=== PATIENT | male | born 1965 | race Caucasian/White ===

== ENCOUNTER 2017-12-07 09:21 | Inpatient (IN) | payer MEDICAID, SELFPAY ==
[2017-12-07] VITALS (18 sets, daily range): BP systolic 135–173; BP diastolic 74–92; PULSE 87–124; RESP 14–33; TEMP 36.9–39.2; O2SAT 90–96; BMI 33.1; BMI 32.7
--- NOTE | 2017-12-07 09:44 | EKG12_ITS ---
Test Reason : CP Blood Pressure : / mmHG Vent. Rate : 115 BPM Atrial Rate : 115 BPM P-R Int : 178 ms QRS Dur : 090 ms QT Int : 308 ms P-R-T Axes : 044 014 026 degrees QTc Int : 426 ms Sinus tachycardia Otherwise normal ECG Confirmed by DARRYL DOMINGUEZ, JEFFREY ([id number]), book or script editor MARGUERITE STEPHENSON ([id number]) on 12/09/2017 1:39:56 PM Referred By: YVROSE/GUMARO Confirmed By:JEFFREY ANDREWS MD
--- NOTE | 2017-12-07 09:44 | RAD_ITS ---
STUDY: X-RAY CHEST REASON FOR EXAM: Male, 52 years old. Right-sided chest pain. TECHNIQUE: Single AP portable view of the chest. COMPARISON: None. FINDINGS: EKG electrodes are seen. There is opacification of the right hemithorax. This may represent a combination of consolidation or mass lesion with a right pleural effusion. The left lung is clear. A CT scan is recommended for further evaluation. Normal size heart. Normal mediastinum and mateo. Normal visualized pulmonary arteries. Normal visualized aortic arch and descending thoracic aorta. Normal visualized thoracic spine. Normal visualized ribs, clavicles, and shoulders. There is no demonstrated abnormality of the visualized soft tissue structures of the upper abdomen. RAD/Chest 1 View (Portable) IMPRESSION: Opacification of the right hemithorax. This is suggestive of a combination of pleural effusion and underlying consolidation and/or mass lesion. Correlation with a CT scan is recommended. Electronically Signed: Akbar Powers MD at 10:12 EDT Tel [phone], Service support ,
--- NOTE | 2017-12-07 09:48 | ED.DCSUM_ITS ---
- ER Visit Summary Date of Service: 12/07/17 Chief Complaint: Chest pain History of Present Illness: The patient is a [address] Chavez. He reports that he has right lower chest pain that began 1 week ago. Sick continuous pain that waxes and wanes. He describes it as sharp and burning. It is 2 out of 10 at rest. Is 9 out of 10 with movement of his torso, breathing , or coughing. He is taking ibuprofen Tylenol with minimal relief. She has been nausea with it and vomited twice. No blood in his emesis. Is also made of short of breath and diaphoretic. He states pain radiates to his right shoulder and into his back. No ankle swelling. He reports he has had bilateral calf pain for 1-2 months. No personal history of DVT. He does not know his family history as he is adopted. No recent travel. He denies any recent trauma. No fall, MVA, or change in activity. Physical Examination: Vitals: 98.4, 140/74, 124, 18, 94% on room air which is not hypoxic. General: Well-nourished and well-developed. Head: Normocephalic atraumatic. Neck: Supple, no lymphadenopathy. No JVD. Nontender. Cardiovascular: Tachycardic regular rhythm. No murmurs. Respiratory: No respiratory distress. Decreased breath sounds on right. Left lung is clear. Abdominal: Soft, nontender, nondistended, normal bowel sounds. No guarding, rebound, or peritoneal signs. Back: Nontender. Extremities: Nontender, no edema. Skin: Normal color, no rash. Neurologic: Alert and oriented ?3. Cranial nerves II through XII are intact. Normal strength and sensation. Psych: Normal affect. Test Results: EKG is sinus tach at [address] changes. CBC is marked for a white count of 16.6 with 74 segmented neutrophils, 13 monocytes, and 11 lymphocytes. Chem-7 is more for glucose 174. TSH is normal. Troponins negative. D-dimer is elevated. Chest x-ray shows opacification of the right hemithorax and recommend CT. CTA of the chest shows multiple PEs bilaterally. There is also 12.2 x 8.4 x 12.4 cm mass that is in homogenous and solid/cystic in the right upper lobe. It abuts the lateral aspect of the thorax. The surrounding compressive atelectasis right upper lobe and minimal in the right lower lobe. There is a minimal right pleural effusion. Emergency Department Course and Treatment: Patient had an IV placed. He was given a liter of normal saline. He was given aspirin p.o. Treatment Plan: Patient was discussed with Dr. Buenrostro, Dr. Bob Shah, Dr. Chris, and Dr. Delgado. He will have a CT-guided biopsy of the mass in 1 hour. Following this a heparin drip will be started. Disposition: Admitted in serious condition. Impression: 1. Bilateral PE. 2. Right upper lobe mass. This note was generated with [employer] dictation software. It may contain incorrect words, spelling, and punctuation that were not noted in review of the chart prior to signing ED Disposition - Plan for ED Patient: Chief Complaint: Chest Pain Referrals: Carolyne Chavez MD [Primary Care Provider] -
[2017-12-07] MEDS: 0.9% Normal Saline 1,000 ML 1000 ML IV (09:59)
[2017-12-07] MEDS: Aspirin 81 MG TAB.CHEW 324 MG PO (09:59)
[2017-12-07 10:03] LABS: D-Dimer Quantitative (DVT/PE) 3.68 FEU/ug/m (0.27-0.49)
--- NOTE | 2017-12-07 10:08 | CT_ITS ---
STUDY: CTA CHEST REASON FOR EXAM: Male, 52 years old. Right-sided rib pain and chest pain. Elevated d-dimer. RADIATION DOSAGE (If Supplied By Facility): CTDIvol = ( 17.95 ) mGy, DLP = ( 739.21 ) mGycm TECHNIQUE: The examination was performed with the intravenous administration of 100ml ml of Isovue 370 contrast material. Post-processing of the angiographic images was performed, with multiplanar reformation and 3D reconstruction. Individualized dose optimization techniques were used for this CT. COMPARISON: Comparison is made with prior chest radiograph done earlier in the day. FINDINGS: There are multiple small intraluminal filling defects in branches of both right and left pulmonary arteries in keeping with bilateral pulmonary embolism. Normal thoracic aorta and visualized great vessels. There is no demonstrated aortic dissection. Normal heart and pericardium. Normal mediastinum. Normal hilar regions. Normal visualized trachea and bronchi. There is a 12.2 cm x 8.9 cm x 12.4 cm inhomogeneous solid and cystic mass in the right upper lobe. There is evidence of a surrounding compressive atelectasis in the right upper lobe. There is also evidence of a increased markings with areas of confluence in the right lower lobe suggestive of atelectasis with minimal right pole effusion. The mass abuts the lateral aspect of the thorax. Normal pleura. Normal chest wall structures. Normal osseous structures. Normal visualized upper abdomen. CT/CTA Chest W/WO Contrast IMPRESSION: Large mass in the right hemithorax as described with right basilar atelectasis and small pleural effusion. Multiple tiny bilateral pulmonary emboli. Electronically Signed: Akbar Powers MD at 11:00 EDT Tel [phone], Service support ,
[2017-12-07 10:10] LABS: Anion Gap 9 (5-15); BUN 7 mg/dL (7-18); BUN/Creat Ratio 6.1 RATIO (10-20); Calcium,Total 9.4 mg/dL (8.5-10.1); Chloride 101 mmol/L (98-107); Creatinine, Serum 1.15 mg/dL (0.70-1.30); EST Glomerular Filtration Rate 71 mL/min (>60); Est Glom Filt Rate - Afr Amer 86 mL/min (>60); Estimated Creatinine Clearance 77.58 ml/min; Glucose 174 mg/dL (74-106); Potassium 4.3 mmol/L (3.5-5.1); Sodium Level 137 mmol/L (136-145); Thyroid Stim Hormone (TSH) 1.84 uIU/mL (0.358-3.74)
[2017-12-07 10:19] LABS: Absolute Lymphocyte Count 1.87 X10^3/ul (0.83-4.51); Absolute Neutrophil Count 12.2 X10^3/uL (2.0-7.7); Basophil% 0.6 % (0-1); Differential Indicated SCAN CRITERIA MET; Eosinophil# 0.24 X10^3/uL; Eosinophils% 1.5 % (0-5); Hematocrit 41.1 % (40-54); Hemoglobin 13.8 g/dl (13.0-16.5); Lymphocyte # 1.87 X10^3/ul (4.0); Lymphocyte % 11.3 % (19-41); Mean Corp Hgb Conc 33.6 g/gl (32-36); Mean Corpuscular Hgb 35.6 pg (27.0-32.0); Mean Corpuscular Volume 105.9 fL (80-94); Mean Platelet Vol. 9.8 fl (6.2-12.0); Monocyte# 2.07 X10^3/uL; Monocyte% 12.5 % (0-10); Neutrophil # 12.17 X10^3/uL (2.7-7.7); Neutrophil % 73.5 % (47-70); POSITIVE COUNT NO; POSITIVE DIFFERENTIAL YES; POSITIVE MORPHOLOGY NO; Platelet Count 376 K/mm3 (150-450); RBC Distribution Width CV 13.3 % (11.6-14.6); RBC Distribution Width SD 51.2 fl (35.1-43.9); Red Blood Count 3.88 M/mm3 (4.6-6.2); White Blood Count 16.6 K/mm3 (4.4-11.0)
--- NOTE | 2017-12-07 11:39 | CT_ITS ---
PROCEDURE: CT DIRECTED ABSCESS DRAINAGE, right upper lobe. DATE OF EXAMINATION: December 07, 2017. INDICATION: Male, 52 years old. Large right upper lobe abscess. PHYSICIAN: Akbar Powers M.D. CONSENT: Written informed consent was obtained having explained the risks, benefits and alternatives in detail with the patient who accepted the risks and agreed to proceed. Laboratory review and clinical assessment was performed. CONSCIOUS SEDATION PROTOCOL: The Drugs used were: 2 mg Versed, IV., and 50 mcg Fentanyl, IV. The sedation time was: 16 minutes. Conscious sedation was started at 1342 and terminated at 1358. The conscious sedation protocol was independently monitored. RADIATION DOSAGE (If Supplied By Facility): CTDIvol = ( 20.72 ) mGy, DLP = ( 1235.2 ) mGycm TECHNIQUE: CT sections were made through the chest revealing an abscess in the right upper lobe. The skin surface was prepped and draped in a sterile fashion. An 8.5 Thai Drainage catheter was inserted into the collection and formed into position. Additional fluid was aspirated for a total of approximately 400 cc of cloudy yellow fluid. The fluid was sent to the microbiology lab as per physician orders. The catheter was sutured into position to allow for continued drainage. Followup CT sections reveals good position of the catheter. CT/Biopsy/Inj or Needle Placement IMPRESSION: 1. CT directed drainage of a fluid collection using CT image guidance and image documentation as described. 2. Conscious Sedation protocol utilized with independent monitoring Electronically Signed: Akbar Powers MD at 14:46 EDT Tel [phone], Service support ,
--- NOTE | 2017-12-07 11:56 | NURSING ---
PCU PULMONARY EMBOLI, RT LUNG MASS, NEW DIAGNOSIS SEMENTI
--- NOTE | 2017-12-07 11:58 | NURSING ---
Geremias notified patient may transfer to PCU.
[2017-12-07 12:53] LABS: International Normalized Ratio 1.1
[2017-12-07 12:54] LABS: Partial Thromboplast Time 34.3 Seconds (24.1-36.2)
[2017-12-07 13:06] LABS: AST(SGOT) 180 U/L (15-37); Alanine Aminotransfer ALT/SGPT 154 U/L (16-61); Albumin, Serum 2.6 g/dL (3.2-5.0); Alkaline Phosphatase 238 U/L (45-117); Bilirubin, Direct 0.85 mg/dL (0.00-0.30); Globulin 4.4 g/dL (2.2-4.2)
--- NOTE | 2017-12-07 13:24 | PCM.CONS.GEN ---
Reason for Consult Date of Consultation: 12/07/17 Reason for Consultation: Pulmonary embolism/lung mass History of Present Illness: The patient is a 52-year-old male, with a history as outlined below, who presented to the emergency department on December 07 with pleuritic type chest pain and shortness of breath. The patient reports the presence of fevers, poor appetite, chest pain and shortness of breath of 7-10 days duration. He denies the presence of a productive cough. In fact, he reports that with coughing his pain is exacerbated. The patient is a lifelong non-smoker. He does endorse the presence of a sedentary lifestyle, as he is currently on disability due to underlying mental health issues. He denies any recent travel. He denies a personal or family history of venous thromboembolic disease. The patient does have an alcohol abuse history with concerns for recurrent aspiration events. On presentation to the emergency department, the patient was noted to be afebrile, tachycardic and hemodynamically stable. He was maintaining appropriate oxygen saturations on room air. Laboratory evaluation revealed elevated white blood cell count to 16,000. D-dimer was elevated to 3.68. Chemistry profile was within normal limits. There was evidence of transaminitis and hyperbilirubinemia. Subsequent CTA chest revealed evidence of bilateral pulmonary emboli, along with a large right upper lobe lung mass measuring 12 x 12 cm. The patient was given supplemental IV fluid hydration and referred to radiology to undergo immediate CT-guided lung biopsy. There are plans for heparin to be initiated following the completion of the biopsy. The patient's CT-guided lung biopsy revealed evidence of purulent fluid, concerning for the presence of a pulmonary abscess. Past Medical History Allergies No Known Allergies Allergy (Verified 01/05/17 23:07) Home Medications: Ambulatory Orders Medication Instructions Recorded Omeprazole [Prilosec] 20 mg PO DAILY 05/04/15 Benztropine Mesylate 0.5 mg PO BID 12/07/17 [place] Carbonate 1,200 mg PO QHS 12/07/17 Propranolol HCl [Inderal (Beta 20 mg PO BID 12/07/17 [place])] Quetiapine Fumarate [Seroquel] 200 mg PO QHS 12/07/17 Trazodone HCl 300 mg PO QHS 12/07/17 Venlafaxine XR [Effexor Xr] 150 mg PO DAILY 07/18/18 Smoking Status: Never smoker - *Family History Paternal History Items: - - Biological father at the age of 51 with cancer however the patient does not know the primary Maternal History Items: Cancer Review of Systems Constitutional: Reports: Fever, Malaise, Fatigue Eyes: Denies: Blurred vision, Double vision HEENT: Denies: Dysphasia, Head Aches, Sinus Congestion, Sinus Drainage Cardiovascular: Reports: Chest Pain Respiratory: Reports: Pleuritic Pain, Shortness of Breath. Denies: Sputum production Gastrointestinal: Denies: Abdominal Pain, Nausea, Vomiting Genitourinary: Denies: Dysuria Musculoskeletal: Denies: Joint Pain, Joint Tenderness Skin: Denies: Rash, Wounds Neurological: Denies: Numbness, Tingling, Focal weakness Psychiatric: Denies: Anxiety, Depression, Homicidal Ideations, Suicidal Ideations Hematologic/ Lymphatic: Denies: Hx of blood clot Patient Problems: Active and Suspected Problems Lung abscess (Acute) Objective: The patient's most recent lab work, culture data and imaging studies have all been personally reviewed. Blood and pulmonary fluid cultures are pending. - Physical Exam General: Alert, Oriented x3, Cooperative, No apparent distress HEENT: Atraumatic, PERRLA, Normocephalic Oral: No Gingival or Mucosal Lesions/ Ulcerations Neck: Supple, No Nodes, Trachea Midline Lungs: Diminished - R>L, - - Small bore thoracic drain in place Cardiovascular: Normal S1, Normal S2, No murmurs, Tachycardic Abdomen: Bowel Sounds Present, Soft, Non Tender, Obese Extremities: No clubbing, No cyanosis, No edema, Capillary Refill Less than 3 Seconds Skin: No breakdown Musculoskeletal: No Tenderness to Palpation of Joints or Extremities, No Muscle Wasting Lymphatic: No Cervical, Supraclavicular, or Inguinal Adenopathy Neurological: Neuro grossly intact Psych/Mental Status: Alert and oriented to time, place, person, mood and affect Vital Signs Temp Pulse Resp BP Pulse Ox 100.2 F H 107 H 20 H 150/86 H 94 12/07/17 12:45 12/07/17 13:03 12/07/17 12:45 12/07/17 12:45 12/07/17 12:45 Oxygen Delivery Method Room Air Weight: 228 lb Body Mass Index (BMI) 32.7 Labs (Last 48 Hours) 0712/07/17 12/07/17 09:30 09:30 09:30 WBC 16.6 H RBC 3.88 L Hgb 13.8 Hct 41.1 MCV 105.9 H MCH 35.6 H MCHC 33.6 RDW 13.3 RDW Differential 51.2 H Plt Count 376 MPV 9.8 Immature Gran % (Auto) 0.600 Neut % (Auto) 73.5 H Lymph % (Auto) 11.3 L [place] % (Auto) 12.5 H Eos % (Auto) 1.5 Baso % (Auto) 0.6 Absolute Neuts (auto) 12.2 H Absolute Lymphs (auto) 1.87 Total Counted Not Reportable Differential Comment COMMENT Diff Path Review May foll PT INR APTT D-Dimer Quant (PE/DVT) 3.68 H* Sodium 137 Potassium 4.3 Chloride 101 Carbon Dioxide 27.0 Anion Gap 9 BUN 7 Creatinine 1.15 Estim Creat Clear Calc 77.58 Est GFR (MDRD) Af Amer 86 Est GFR (MDRD) Non-Af 71 BUN/Creatinine Ratio 6.1 L Glucose 174 H Calcium 9.4 Total Bilirubin Direct Bilirubin AST ALT Alkaline Phosphatase Troponin I < 0.015 Total Protein Albumin Globulin TSH 1.84 [place] 12/07/17 12/07/17 12/07/17 09:30 09:30 09:30 WBC RBC Hgb Hct MCV MCH MCHC RDW RDW Differential Plt Count MPV Immature Gran % (Auto) Neut % (Auto) Lymph % (Auto) [place] % (Auto) Eos % (Auto) Baso % (Auto) Absolute Neuts (auto) Absolute Lymphs (auto) Total Counted Differential Comment Diff Path Review PT 14.0 INR 1.1 APTT 34.3 D-Dimer Quant (PE/DVT) Sodium Potassium Chloride Carbon Dioxide Anion Gap BUN Creatinine Estim Creat Clear Calc Est GFR (MDRD) Af Amer Est GFR (MDRD) Non-Af BUN/Creatinine Ratio Glucose Calcium Total Bilirubin 1.30 H Direct Bilirubin 0.85 H AST 180 H ALT 154 H Alkaline Phosphatase 238 H Troponin I Total Protein 7.0 Albumin 2.6 L Globulin 4.4 H TSH [place] 1.20 12/07/17 09:30 WBC RBC Hgb Hct MCV MCH MCHC RDW RDW Differential Plt Count MPV Immature Gran % (Auto) Neut % (Auto) Lymph % (Auto) [place] % (Auto) Eos % (Auto) Baso % (Auto) Absolute Neuts (auto) Absolute Lymphs (auto) Total Counted Differential Comment Diff Path Review PT INR APTT D-Dimer Quant (PE/DVT) Sodium Potassium Chloride Carbon Dioxide Anion Gap BUN Creatinine Estim Creat Clear Calc Est GFR (MDRD) Af Amer Est GFR (MDRD) Non-Af BUN/Creatinine Ratio Glucose Calcium Total Bilirubin Direct Bilirubin AST ALT Alkaline Phosphatase Troponin I Total Protein Albumin Globulin TSH Pending [place] Clinical Impression(s) from Imaging Studies Chest X-Ray 12/07/17 09:44 IMPRESSION: Opacification of the right hemithorax. This is suggestive of a combination of pleural effusion and underlying consolidation and/or mass lesion. Correlation with a CT scan is recommended. Electronically Signed: Akbar Powers MD at 10:12 EDT Tel [phone], Service support , Chest CTA 12/07/17 10:08 IMPRESSION: Large mass in the right hemithorax as described with right basilar atelectasis and small pleural effusion. Multiple tiny bilateral pulmonary emboli. Electronically Signed: Akbar Powers MD at 11:00 EDT Tel [phone], Service support , Assessment/Plan All Active Problems Lung abscess (Acute) RECOMMENDATIONS: 1. Send abscess drainage for cell count, along with aerobic/anaerobic bacterial cultures. 2. Start empiric broad-spectrum antibiotics. 3. Administer 2 L supplemental IV fluid bolus 4. Check serum lactate level. 5. Obtain and send blood cultures ?2. 6. Start heparin drip 7. Obtain repeat plain film chest x-ray in the morning. 8. Check hepatitis panel and liver ultrasound. IMPRESSIONS: 1. Sepsis secondary to presumptive pulmonary abscess The patient's chest imaging did demonstrate a large homogenous right upper lobe lung mass, initially concerning for potential malignancy. However, upon CT-guided lung biopsy, the patient was found to have purulent fluid, concerning for pulmonary abscess. A large amount of fluid was drained and sent for cultures. A small bore thoracic drain remains in place. Broad-spectrum antibiotics will be initiated, pending infectious workup. The patient may require the assistance of infectious diseases to assist with antibiotic management. Additional supplemental IV fluids will be administered and serum lactate level will be checked. The patient does endorse a history of recurrent reflux and emesis, with concern for aspiration. 2. Bilateral pulmonary embolism The patient endorses an exceedingly sedentary lifestyle. This may have been the precipitating etiology for his PEs. Regardless, the patient will be placed on a heparin drip, with plans to transition to a oral anticoagulant regimen, once medically stable. 3. Elevated transaminases/hyperbilirubinemia The patient does have an alcohol abuse history. Therefore, we will plan to check hepatitis panel and liver ultrasound. 4. Personal history of gastroesophageal reflux disease/bipolar disorder/alcohol dependence Complicates care, management, recovery and prognosis. Continue PPI therapy. This note was generated with [employer] dictation software. It may contain incorrect words, spelling, and punctuation that were not noted in checking the note before signing. Code Visit Inpatient E&M: 08289 Init Hosp L3
--- NOTE | 2017-12-07 13:29 | CON.PCM_ITS ---
Reason for Consult Date of Consultation: 12/07/17 Reason for Consultation: Pulmonary embolism/lung mass History of Present Illness: The patient is a 52-year-old male, with a history as outlined below, who presented to the emergency department on December 07 with pleuritic type chest pain and shortness of breath. The patient reports the presence of fevers, poor appetite, chest pain and shortness of breath of 7-10 days duration. He denies the presence of a productive cough. In fact, he reports that with coughing his pain is exacerbated. The patient is a lifelong non-smoker. He does endorse the presence of a sedentary lifestyle, as he is currently on disability due to underlying mental health issues. He denies any recent travel. He denies a personal or family history of venous thromboembolic disease. The patient does have an alcohol abuse history with concerns for recurrent aspiration events. On presentation to the emergency department, the patient was noted to be afebrile, tachycardic and hemodynamically stable. He was maintaining appropriate oxygen saturations on room air. Laboratory evaluation revealed elevated white blood cell count to 16,000. D-dimer was elevated to 3.68. Chemistry profile was within normal limits. There was evidence of transaminitis and hyperbilirubinemia. Subsequent CTA chest revealed evidence of bilateral pulmonary emboli, along with a large right upper lobe lung mass measuring 12 x 12 cm. The patient was given supplemental IV fluid hydration and referred to radiology to undergo immediate CT-guided lung biopsy. There are plans for heparin to be initiated following the completion of the biopsy. The patient's CT-guided lung biopsy revealed evidence of purulent fluid, concerning for the presence of a pulmonary abscess. Past Medical History Allergies No Known Allergies Allergy (Verified 01/05/17 23:07) Home Medications: Ambulatory Orders Medication Instructions Recorded Omeprazole [Prilosec] 20 mg PO DAILY 05/04/15 Benztropine Mesylate 0.5 mg PO BID 12/07/17 [place] Carbonate 1,200 mg PO QHS 12/07/17 Propranolol HCl [Inderal (Beta 20 mg PO BID 12/07/17 Bijan)] Quetiapine Fumarate [Seroquel] 200 mg PO QHS 12/07/17 Trazodone HCl 300 mg PO QHS 12/07/17 Venlafaxine XR [Effexor Xr] 150 mg PO DAILY 07/18/18 Smoking Status: Never smoker - *Family History Paternal History Items: - - Biological father at the age of 51 with cancer however the patient does not know the primary Maternal History Items: Cancer Review of Systems Constitutional: Reports: Fever, Malaise, Fatigue Eyes: Denies: Blurred vision, Double vision HEENT: Denies: Dysphasia, Head Aches, Sinus Congestion, Sinus Drainage Cardiovascular: Reports: Chest Pain Respiratory: Reports: Pleuritic Pain, Shortness of Breath. Denies: Sputum production Gastrointestinal: Denies: Abdominal Pain, Nausea, Vomiting Genitourinary: Denies: Dysuria Musculoskeletal: Denies: Joint Pain, Joint Tenderness Skin: Denies: Rash, Wounds Neurological: Denies: Numbness, Tingling, Focal weakness Psychiatric: Denies: Anxiety, Depression, Homicidal Ideations, Suicidal Ideations Hematologic/ Lymphatic: Denies: Hx of blood clot Patient Problems: Active and Suspected Problems Lung abscess (Acute) Objective: The patient's most recent lab work, culture data and imaging studies have all been personally reviewed. Blood and pulmonary fluid cultures are pending. - Physical Exam General: Alert, Oriented x3, Cooperative, No apparent distress HEENT: Atraumatic, PERRLA, Normocephalic Oral: No Gingival or Mucosal Lesions/ Ulcerations Neck: Supple, No Nodes, Trachea Midline Lungs: Diminished - R>L, - - Small bore thoracic drain in place Cardiovascular: Normal S1, Normal S2, No murmurs, Tachycardic Abdomen: Bowel Sounds Present, Soft, Non Tender, Obese Extremities: No clubbing, No cyanosis, No edema, Capillary Refill Less than 3 Seconds Skin: No breakdown Musculoskeletal: No Tenderness to Palpation of Joints or Extremities, No Muscle Wasting Lymphatic: No Cervical, Supraclavicular, or Inguinal Adenopathy Neurological: Neuro grossly intact Psych/Mental Status: Alert and oriented to time, place, person, mood and affect Vital Signs Temp Pulse Resp BP Pulse Ox 100.2 F H 107 H 20 H 150/86 H 94 12/07/17 12:45 12/07/17 13:03 12/07/17 12:45 12/07/17 12:45 12/07/17 12:45 Oxygen Delivery Method Room Air Weight: 228 lb Body Mass Index (BMI) 32.7 Labs (Last 48 Hours) 0712/07/17 12/07/17 09:30 09:30 09:30 WBC 16.6 H RBC 3.88 L Hgb 13.8 Hct 41.1 MCV 105.9 H MCH 35.6 H MCHC 33.6 RDW 13.3 RDW Differential 51.2 H Plt Count 376 MPV 9.8 Immature Gran % (Auto) 0.600 Neut % (Auto) 73.5 H Lymph % (Auto) 11.3 L [place] % (Auto) 12.5 H Eos % (Auto) 1.5 Baso % (Auto) 0.6 Absolute Neuts (auto) 12.2 H Absolute Lymphs (auto) 1.87 Total Counted Not Reportable Differential Comment COMMENT Diff Path Review May foll PT INR APTT D-Dimer Quant (PE/DVT) 3.68 H* Sodium 137 Potassium 4.3 Chloride 101 Carbon Dioxide 27.0 Anion Gap 9 BUN 7 Creatinine 1.15 Estim Creat Clear Calc 77.58 Est GFR (MDRD) Af Amer 86 Est GFR (MDRD) Non-Af 71 BUN/Creatinine Ratio 6.1 L Glucose 174 H Calcium 9.4 Total Bilirubin Direct Bilirubin AST ALT Alkaline Phosphatase Troponin I < 0.015 Total Protein Albumin Globulin TSH 1.84 [place] 12/07/17 12/07/17 12/07/17 09:30 09:30 09:30 WBC RBC Hgb Hct MCV MCH MCHC RDW RDW Differential Plt Count MPV Immature Gran % (Auto) Neut % (Auto) Lymph % (Auto) [place] % (Auto) Eos % (Auto) Baso % (Auto) Absolute Neuts (auto) Absolute Lymphs (auto) Total Counted Differential Comment Diff Path Review PT 14.0 INR 1.1 APTT 34.3 D-Dimer Quant (PE/DVT) Sodium Potassium Chloride Carbon Dioxide Anion Gap BUN Creatinine Estim Creat Clear Calc Est GFR (MDRD) Af Amer Est GFR (MDRD) Non-Af BUN/Creatinine Ratio Glucose Calcium Total Bilirubin 1.30 H Direct Bilirubin 0.85 H AST 180 H ALT 154 H Alkaline Phosphatase 238 H Troponin I Total Protein 7.0 Albumin 2.6 L Globulin 4.4 H TSH [place] 1.20 12/07/17 09:30 WBC RBC Hgb Hct MCV MCH MCHC RDW RDW Differential Plt Count MPV Immature Gran % (Auto) Neut % (Auto) Lymph % (Auto) [place] % (Auto) Eos % (Auto) Baso % (Auto) Absolute Neuts (auto) Absolute Lymphs (auto) Total Counted Differential Comment Diff Path Review PT INR APTT D-Dimer Quant (PE/DVT) Sodium Potassium Chloride Carbon Dioxide Anion Gap BUN Creatinine Estim Creat Clear Calc Est GFR (MDRD) Af Amer Est GFR (MDRD) Non-Af BUN/Creatinine Ratio Glucose Calcium Total Bilirubin Direct Bilirubin AST ALT Alkaline Phosphatase Troponin I Total Protein Albumin Globulin TSH Pending [place] Clinical Impression(s) from Imaging Studies Chest X-Ray 12/07/17 09:44 IMPRESSION: Opacification of the right hemithorax. This is suggestive of a combination of pleural effusion and underlying consolidation and/or mass lesion. Correlation with a CT scan is recommended. Electronically Signed: Akbar Powers MD at 10:12 EDT Tel [phone], Service support , Chest CTA 12/07/17 10:08 IMPRESSION: Large mass in the right hemithorax as described with right basilar atelectasis and small pleural effusion. Multiple tiny bilateral pulmonary emboli. Electronically Signed: Akbar Powers MD at 11:00 EDT Tel [phone], Service support , Assessment/Plan All Active Problems Lung abscess (Acute) RECOMMENDATIONS: 1. Send abscess drainage for cell count, along with aerobic/anaerobic bacterial cultures. 2. Start empiric broad-spectrum antibiotics. 3. Administer 2 L supplemental IV fluid bolus 4. Check serum lactate level. 5. Obtain and send blood cultures ?2. 6. Start heparin drip 7. Obtain repeat plain film chest x-ray in the morning. 8. Check hepatitis panel and liver ultrasound. IMPRESSIONS: 1. Sepsis secondary to presumptive pulmonary abscess The patient's chest imaging did demonstrate a large homogenous right upper lobe lung mass, initially concerning for potential malignancy. However, upon CT- guided lung biopsy, the patient was found to have purulent fluid, concerning for pulmonary abscess. A large amount of fluid was drained and sent for cultures. A small bore thoracic drain remains in place. Broad-spectrum antibiotics will be initiated, pending infectious workup. The patient may require the assistance of infectious diseases to assist with antibiotic management. Additional supplemental IV fluids will be administered and serum lactate level will be checked. The patient does endorse a history of recurrent reflux and emesis, with concern for aspiration. 2. Bilateral pulmonary embolism The patient endorses an exceedingly sedentary lifestyle. This may have been the precipitating etiology for his PEs. Regardless, the patient will be placed on a heparin drip, with plans to transition to a oral anticoagulant regimen, once medically stable. 3. Elevated transaminases/hyperbilirubinemia The patient does have an alcohol abuse history. Therefore, we will plan to check hepatitis panel and liver ultrasound. 4. Personal history of gastroesophageal reflux disease/bipolar disorder/ alcohol dependence Complicates care, management, recovery and prognosis. Continue PPI therapy. This note was generated with [employer] dictation software. It may contain incorrect words, spelling, and punctuation that were not noted in checking the note before signing. Code Visit Inpatient E&M: 73406 Init Hosp L3
[2017-12-07] MEDS: Piperacil/Tazobactam 3.375 GM/50 ML ML IV ×2 (14:40→22:58)
[2017-12-07] MEDS: Propranolol 10 MG Tablet 20 MG PO ×2 (14:40→22:59)
[2017-12-07] MEDS: 0.9% NaCl Peripheral Flush Adult/Peds IV (14:40)
[2017-12-07] MEDS: Venlafaxine XR 150 MG Capsule PO (14:40)
[2017-12-07] MEDS: Lactated Ringers 1,000 ML 999 ML IV ×2 (15:07→16:18)
--- NOTE | 2017-12-07 15:14 | US_ITS ---
STUDY: ABDOMINAL ULTRASOUND - RIGHT UPPER QUADRANT REASON FOR VISIT: Male, 52 years old. Abdominal labs TECHNIQUE: Ultrasound evaluation of the right upper quadrant was performed with real-time and static heller-scale imaging. TECHNICAL QUALITY: Adequate. COMPARISON: None. FINDINGS: Liver: The liver measures 18.2 cm. There is fatty echogenicity of the liver. The bile ducts are within normal limits. There is hepatic color flow. The direction of portal flow is hepatopetal. There is no demonstrated mass lesion. Gallbladder: Normal distended gallbladder. The gallbladder wall measures 5-6 mm. There is a negative sonographic Kelley's sign. There is no pericholecystic fluid. There are no gallstones. Possible mild sludge. Common Bile Duct (C.B.D.): The common bile duct measures 5 mm. Pancreas: Normal size of the head, body and tail of the pancreas. There is normal echogenicity of the pancreas. There is no demonstrated pancreatic mass or cyst. Right Kidney: Normal size of the right kidney. The right kidney measures 11.6 x 5.5 x 4.8 cm. Normal renal cortex. The right cortex measures 1.5 cm. There is no demonstrated renal mass or cyst. There is no right hydronephrosis. US/Abdomen Limited IMPRESSION: Slightly thickened gallbladder wall with possible sludge. Fatty liver with hepatomegaly. Electronically Signed: Clarence Rueda DO at 18:34 EDT Tel [phone], Service support ,
--- NOTE | 2017-12-07 15:22 | ECHOD_ITS ---
Reason For Study: Chest pain Procedure This was a 2D Doppler, Color Flow transthoracic echocardiogram. Exam performed portable in patient room. Left Ventricle Normal LV size. Left ventricular systolic function is normal. The estimated ejection fraction is 55 %. Stage 1 diastolic dysfunction. No regional wall motion abnormalities noted. Right Ventricle Normal RV size. Normal systolic function. Atria Normal left atrium. Normal right atrium. Mitral Valve Normal mitral valve. Tricuspid Valve Normal tricuspid valve. Pulmonary artery systolic pressure is 32 mmHg. Mild (1+) tricuspid valve insufficiency. Aortic Valve Normal aortic valve. Pulmonic Valve The pulmonic valve is not well visualized. Great Vessels Normal aortic root. The pulmonary artery is normal size. Normal inferior vena cava. Pericardium/Pleural No pericardial effusion. Medication Diluted definity 3ml given slow IV push to enhance endocardial definition. MMode/2D Measurements & Calculations Ao root diam: 3.8 cm LAV(MOD-sp4): 56.7 ml LA dimension: 3.8 cm LA A4 area: 20.4 cm2 RA A4 area: 14.7 cm2 Doppler Measurements & Calculations MV E max dean: 86.6 cm/sec Lat Peak E' Dean: 14.3 cm/sec Med Peak E' Dean: 9.3 cm/sec MV A max dean: 95.6 cm/sec E/E' lat: 6.1 E/E' med: 9.3 MV E/A: 0.91 Ao V2 max: 155.8 cm/sec LV V1 max: 129.7 cm/sec PA V2 max: 148.5 cm/sec Ao max P.7 mmHg LV V1 max P.7 mmHg TR max dean: 269.4 cm/sec TR max P.1 mmHg Interpretation Summary Normal LV size. Left ventricular systolic function is normal. The estimated ejection fraction is 55 %. Stage 1 diastolic dysfunction. Pulmonary artery systolic pressure is 32 mmHg. Contrast injection was performed. Ordering Physician: Dahiana Delgado Referring Physician: Carolyne Chavez M.D. Performed By: Madelaine Hook RDCS
--- NOTE | 2017-12-07 15:22 | VDLE_ITS ---
Reason For Study: PE RIGHT LEFT GSV is normal. GSV is normal. CFV is compressible, spontaneous, phasic, CFV is compressible, spontaneous, phasic, competent and demonstrates normal competent, and demonstrates normal augmentation. augmentation. FV is compressible, spontaneous, phasic, FV is compressible, spontaneous, phasic, competent and demonstrates normal competent and demonstrates normal augmentation. augmentation. POP V is compressible, spontaneous, phasic, POP V is compressible, spontaneous, phasic, competent and demonstrates normal competent and demonstrates normal augmentation. augmentation. T/P Trunk is compressible. T/P Trunk is compressible. PTV is compressible. PTV is compressible. RT PerV is compressible. LT PerV is compressible. Procedure Exam performed portable in patient room. A preliminary report was called and/or faxed to [facility]. Interpretation Summary Deep veins of the lower extremities are bilaterally patent and compressible segmentally. There is no evidence of deep vein thrombosis on either side. Valvular competence appears intact within the proximal deep venous systems bilaterally. The greater saphenous veins appear bilaterally patent and compressible segmentally. Ordering Physician: Dahiana Delgado Referring Physician: Carolyne Chavez M.D. Performed By: Silvina Perry RDCS, RVT
--- NOTE | 2017-12-07 15:26 | PCM.HP.STD ---
Problem List (1) Bipolar disorder Status: Chronic (2) GERD (gastroesophageal reflux disease) Status: Chronic (3) Lung abscess Status: Acute (4) Sepsis Status: Acute (5) Bilateral pulmonary embolism Status: Acute (6) Abnormal LFTs Status: Acute History of Present Illness Date of Admission: 12/07/17 Chief Complaint: Chest pain with shortness of breath and fever/chills The patient is a 52 year old M with a past medical history of bipolar 1 disorder, obesity and GERD who presented to the emergency department at [facility] on 12/07/2017 complaining of pleuritic type right chest pain associated with shortness of breath. The severe pain has been present for several days. In addition to that he complained of fevers, chills, decreased appetite. He denied cough. Vital signs at presentation to the emergency room were temperature 98.4, pulse rate 124, blood pressure 140/74, respiratory rate 18 and the pulse ox was 92-94% on room air. White blood cell count was elevated at 16.6 with 73% neutrophils. Hemoglobin was 13.8 and the platelets were within normal limits. INR was supratherapeutic at 3.68. Electrolytes were within normal limits and the BUN was 7 with 1 5. Glucose was increased at 174 and a lactic acid was 1.4. Bilirubin, alkaline phosphatase and transaminases were all elevated. Plain chest x-ray showed opacification of the right hemithorax and CT was recommended. CTA of the chest showed multiple small intraluminal filling defects in branches of both right and left pulmonary arteries and a 12.2 x 8.9 x 12.4 cm inhomogeneous solid and cystic mass in the right upper lobe. He was seen in consultation by Dr. Bob Shah and a needle biopsy of a possible mass was recommended. Patient was taken to CAT scan and When the needle was inserted there was a very foul smelling yellow liquid returned. A drain was placed by Dr. Powers and the fluid was sent for culture, cytology, cell count. Patient was admitted to a monitored bed on the progressive care unit and started on vancomycin and Zosyn. Past Medical History Past Medical History (Chronic Problems): Chronic Problems Bipolar disorder (Chronic) GERD (gastroesophageal reflux disease) (Chronic) Allergies No Known Allergies Allergy (Verified 01/05/17 23:07) Home Medications: Ambulatory Orders Medication Instructions Recorded Omeprazole [Prilosec] 20 mg PO DAILY 05/04/15 Benztropine Mesylate 0.5 mg PO BID 12/07/17 [place] Carbonate 1,200 mg PO QHS 12/07/17 Propranolol HCl [Inderal (Beta 20 mg PO BID 12/07/17 Bijan)] Quetiapine Fumarate [Seroquel] 200 mg PO QHS 12/07/17 Trazodone HCl 300 mg PO QHS 12/07/17 Venlafaxine XR [Effexor Xr] 150 mg PO DAILY 12/07/17 Surgical History: - - Surgery on the dorsum of the right hand for incision and drainage of abscess Psychiatric History: Bipolar - Bipolar 1 disorder Lives: Alone Smoking Status: Never smoker Tobacco Use: Non-smoker Alcohol: Occasional - 2-3 times a week he has mixed drinks Drugs: None - *Family History Paternal History Items: - - Biological father at the age of 51 with cancer however the patient does not know the primary Maternal History Items: Cancer Review of Systems Constitutional: Reports: Anorexia, Chills, Fever, Malaise, - - Loss of appetite Eyes: Denies: Vision Change HEENT: Denies: Difficulty Swallowing, Head Aches, Sinus Congestion, Sinus Drainage, Sore Throat Cardiovascular: Reports: Chest Pain. Denies: Edema, Light Headedness, Orthopnea, Palpitations Respiratory: Reports: Shortness of Breath. Denies: Cough, Hemoptysis, Sputum production, Wheezing Gastrointestinal: Reports: Nausea, Vomiting - For the past year off and on. Denies: Abdominal Pain, Diarrhea Genitourinary: Denies: Dysuria Musculoskeletal: Denies: Joint Pain, Joint Tenderness, Leg Pain Skin: Denies: Jaundice, Rash, Wounds Neurological: Denies: Balance problems, Change in Speech, Confusion, Focal weakness, Headaches, Seizures Psychiatric: Reports: - - Bipolar 1 disorder Endocrine: Reports: Change in Body Habitus - He has lost approximately 14 pounds recently due to poor intake related to loss of appetite Hematologic/ Lymphatic: Denies: Hx of blood clot VTE Information - Inpt Only VTE Present on Admission: No VTE Mechan Device Prophylaxis: None Reason prophylaxis not ordered:: Treatment Not Indicated - Patient is supratherapeutic on Coumadin Patient Problems: Active and Suspected Problems Lung abscess (Acute) Sepsis (Acute) Bilateral pulmonary embolism (Acute) Abnormal LFTs (Acute) - Physical Exam General: Alert, Oriented x3, Cooperative, No apparent distress, Well developed, Well nourished HEENT: Atraumatic, PERRLA, EOMI, Normocephalic Oral: No Gingival or Mucosal Lesions/ Ulcerations, Dry Mucosa Neck: Supple, No JVD, Negative Carotid Bruits, No Nodes, Trachea Midline Lungs: No rhonchi, No wheeze, No rales, Diminished Cardiovascular: Regular Rhythm, Normal S1, Normal S2, No murmurs, No rub noted, No Gallop, Tachycardic Abdomen: Bowel Sounds Present, Soft, Non Tender, Non-Distended, Obese Extremities: No clubbing, No cyanosis, No edema, No Calf Tenderness, Peripheral Pulses Normal Skin: No rashes, No breakdown Musculoskeletal: No Muscle Wasting Neurological: Cranial nerves II-XII grossly intact, Neuro grossly intact Psych/Mental Status: Appropriate Vital Signs Temp Pulse Resp BP Pulse Ox 102.6 F H 124 H 18 153/80 H 91 12/07/17 14:20 12/07/17 14:51 12/07/17 14:20 12/07/17 14:20 12/07/17 14:20 Oxygen Flow Rate (L/min) [4] 2 Oxygen Flow Rate (L/min) [3] 2 Oxygen Flow Rate (L/min) [1 ( 94 Initial Baseline)] Oxygen Flow Rate (L/min) 2 Oxygen Delivery Method [4] Nasal Cannula Oxygen Delivery Method [3] Nasal Cannula Oxygen Delivery Method [2] Room Air Oxygen Delivery Method [1 ( Room Air Initial Baseline)] Oxygen Delivery Method Nasal Cannula Weight: 227 lb 15.998 oz Body Mass Index (BMI) 32.7 Intake and Output for Last 24 Hours 12/05/17 12/06/17 12/07/17 23:59 23:59 23:59 Output Total 50 / 50 Balance -50 / -50 Laboratory Tests Past 24 Hrs 12/07/17 12/07/17 12/07/17 13:58 14:45 14:58 Lactic Acid Pending Fluid Source Pending Fluid Color Pending Fluid Appearance Pending Fluid WBC Pending Fluid RBC Pending Fluid Tot Cell Count Pending Fl Pathologist Comment Pending Fluid Comment 2 Pending MRSA (PCR) Pending Assessment/Plan All Active Problems Lung abscess (Acute) Sepsis (Acute) Bilateral pulmonary embolism (Acute) Abnormal LFTs (Acute) Impressions 1. Sepsis due to a R lung abscess - possibly from reflux? Aspiration? 2. BPD I 3. GERD 4. Macrocytosis 5. Abnormal LFTs 6. Hypoalbuminemia 7. Pulmonary emboli Admit to monitored bed on PCU Consult Dr. Bob Shah from pulmonary and Dr. Sathish Real from infectious disease Maintain drain in the right chest Await the results of the cell count and differential, fluid culture, cytology Pain medication as needed Recheck lab in the a.m. Hepatitis panel Recheck chest x-ray in the a.m. Continue home medications Start a heparin infusion and maintain until the patient has no further need for any interventional radiology or surgical procedures and then transition to Xarelto or Apixaban. Why does he have PE's? Bilateral lower extremity venous ultrasounds Code Visit Inpatient E&M: 54404 Init Hosp L3
[2017-12-07 15:41] LABS: Lactic Acid 1.4 mmol/L (0.4-2.0)
--- NOTE | 2017-12-07 16:02 | NURSING ---
pt not on coumadin, anticoagulation is Heparin Gtt.
--- NOTE | 2017-12-07 16:06 | PCM.RX.CS ---
Consult Pharmacy has been consulted to manage selected antiobiotic: Vancomycin Type of Consult: New start Suspected Infection: Sepsis Labs: Sodium 137 mmol/L (136-145) 12/07/17 09:30 Potassium 4.3 mmol/L (3.5-5.1) 12/07/17 09:30 Chloride 101 mmol/L (98-107) 12/07/17 09:30 Carbon Dioxide 27.0 mmol/L (21.0-32.0) 12/07/17 09:30 Anion Gap 9 (5-15) 12/07/17 09:30 BUN 7 mg/dL (7-18) 12/07/17 09:30 Creatinine 1.15 mg/dL (0.70-1.30) 12/07/17 09:30 Est GFR (MDRD) Af Amer 86 mL/min (>60) 12/07/17 09:30 Est GFR (MDRD) Non-Af 71 mL/min (>60) 12/07/17 09:30 BUN/Creatinine Ratio 6.1 RATIO (10-20) L 12/07/17 09:30 Glucose 174 mg/dL (74-106) H 12/07/17 09:30 Weight used for dosin.4 kg Estimated Creatinine Clearance: 78 ML/MIN Goal Trough: 15-20 mcg/mL Pharmacy Plan for Drug DosinMG IV X1, THEN CONTINUE AT 1500MG IV Q12H. Pharmacy Service will continue to monitor and adjust dosing as required. Follow-Up Labs: Trough Vancomycin Labs to be done on [date and time ordered]: 12/09/17 AT 03:30 BEFORE THE 4TH DOSE AT 04:00
--- NOTE | 2017-12-07 16:09 | PCM.HP.ID ---
Problem List (1) Lung abscess Status: Acute Reason for Consult: lung abscess Consulted by: Dr. Delgado History of Present Illness: The patient is a 52 year old M with h/o etoh abuse who presented with one week of severe R sided chest pain, worse with deep breath/cough/movement. Having fever and night sweats for at least a few weeks. Has lost about 14lbs over this time. No recent pneumonia, infection, or abx. No recent dental problems. Has not seen a dentist in several years. No rash or joint pain. No sputum. Has had near daily n/v/d for past 6 months, has not seen a doctor about this. No blood in stool that he has seen. No prior h/o blood clot. No fam h/o liver or lung disease. Denies any h/o jaundice. Reports neg hiv testing several years ago when he went to rehab for etoh. Currently drinks about 5-6 shots of vodka in mixed drinks about every other day with frequent blackouts. Denies any coughing/choking with emesis. Came to ED, imaging showed lung mass, had CT guided bx with suspected abscess. On vanc/zosyn. Full ROS performed and neg except as noted above. - Medical History Allergies/Adverse Reactions: Allergies No Known Allergies Allergy (Verified 01/05/17 23:07) Home Medications: Ambulatory Orders Medication Instructions Recorded Omeprazole [Prilosec] 20 mg PO DAILY 05/04/15 Benztropine Mesylate 0.5 mg PO BID 12/07/17 [place] Carbonate 1,200 mg PO QHS 12/07/17 Propranolol HCl [Inderal (Beta 20 mg PO BID 12/07/17 [place])] Quetiapine Fumarate [Seroquel] 200 mg PO QHS 12/07/17 Trazodone HCl 300 mg PO QHS 12/07/17 Venlafaxine XR [Effexor Xr] 150 mg PO DAILY 12/07/17 - Social History Tobacco Use: non-smoker Vital Signs Temp Pulse Resp BP Pulse Ox 102.6 F H 124 H 18 153/80 H 92 12/07/17 14:20 12/07/17 14:51 12/07/17 14:20 12/07/17 14:20 12/07/17 15:27 Oxygen Flow Rate (L/min) [4] 2 Oxygen Flow Rate (L/min) [3] 2 Oxygen Flow Rate (L/min) [1 ( 94 Initial Baseline)] Oxygen Flow Rate (L/min) 2 Oxygen Delivery Method [4] Nasal Cannula Oxygen Delivery Method [3] Nasal Cannula Oxygen Delivery Method [2] Room Air Oxygen Delivery Method [1 ( Room Air Initial Baseline)] Oxygen Delivery Method Nasal Cannula Weight: 103.419 kg Body Mass Index (BMI) 32.7 Laboratory Tests Past 24 Hrs 12/07/17 12/07/17 12/07/17 13:58 14:45 14:58 Lactic Acid 1.4 Fluid Source Pending Fluid Color Pending Fluid Appearance Pending Fluid WBC Pending Fluid RBC Pending Fluid Tot Cell Count Pending Fl Pathologist Comment Pending Fluid Comment 2 Pending MRSA (PCR) Pending - Other Studies Radiology: [] reviewed Other Studies: [] Route of nutrition/ use of supplements: [] Nutritional Intake: [] IV Site: [] Castillo Catheter: [] - Physical Exam General: Alert, Oriented x3, Cooperative, No apparent distress HEENT: Atraumatic, PERRLA, EOMI, - - good dentition Neck: Supple, No Nodes Lungs: Diminished - on R side Cardiovascular: Regular rate, Regular Rhythm Abdomen: Bowel Sounds Present, Soft, Non Tender, Non-Distended Extremities: No edema Skin: No rashes, - - R chest drain in place IV Site: Peripheral, without redness Musculoskeletal: No Tenderness to Palpation of Joints or Extremities Neurological: Cranial nerves II-XII grossly intact - Assessment/Plan Antibiotics: [] Assessment/Plan: [] Lung abscess with PEs and transaminitis, h/o etoh abuse Bcx and fluid cxs pending. Elevated wbc and HR. Reports fevers at home. Cont empiric vanc/zosyn. No clear source for this, no recent infections and no sign of dental problems; most likely explanation may be etoh abuse and frequent blackouts causing aspiraiton. Will order hiv, and he agrees to testing. Denies any h/o ivdu. transaminitis - agree with hep panel and liver u/s. Has h/o heavy etoh use. Thank you, will follow, d/w Dr. Delgado.
[2017-12-07] MEDS: oxyCODONE 5 MG Tablet 10 MG PO ×2 (16:12→20:32)
[2017-12-07] MEDS: Heparin Injection (Vial) 5,000 UNIT/ML VIAL 8000 UNIT IV (16:14)
[2017-12-07] MEDS: HEPARIN/D5w 25,000 UNITS 25,000 UNITS/250 ML IV.SOLN. 15 UNITS IV (16:16)
[2017-12-07 16:51] LABS: Lipase 82 U/L (73-393)
[2017-12-07 17:14] LABS: M R Staph aureus DNA By PCR Negative (Negative); Probe Check PASS; Specimen Processing Control PASS
[2017-12-07 17:45] LABS: Auto B Fluid Analyzer BKGD Ct COUNTS W/IN LIMITS (W/IN LIMITS); Source- Body Fluid OTHER
[2017-12-07 17:46] LABS: Appearance/Body Fluid TURBID; Color/Body Fluid YELLOW
[2017-12-07 17:47] LABS: Body Fluid Mononuclear WBC # 7.571 10^3/uL; Body Fluid Mononuclear WBC % 44.6 %; Body Fluid Polynuclear WBC % 55.4 %
[2017-12-07 17:48] LABS: Lymphocytes 2 %; Monocytes 2 %; Neutrophil (Segs) 92 %; Other Cell Type/BF 4 %; Red Cell Count/Body Fluid 244 /mm3
[2017-12-07 17:49] LABS: Body Fluid QC Type(s) BF2,BF3
[2017-12-07] MEDS: Acetaminophen 325 MG Tablet 650 MG PO (17:50)
[2017-12-07 20:21] LABS: HIV - WCH Non-Reactive (Nonreactive)
[2017-12-07 22:54] LABS: Partial Thromboplast Time 69.2 Seconds (24.1-36.2)
[2017-12-07] MEDS: traZODone 100 MG Tablet 300 MG PO (22:58)
[2017-12-07] MEDS: QUEtiapine 100 MG Tablet 200 MG PO (22:58)
[2017-12-07] MEDS: Lithium Carbonate 300mg Capsule 1200 MG PO (22:59)
[2017-12-07] MEDS: Famotidine 20 MG Tablet PO (22:59)
[2017-12-08] VITALS (11 sets, daily range): BP systolic 121–155; BP diastolic 64–90; PULSE 82–100; RESP 16–18; TEMP 37–38.1; O2SAT 92–96
[2017-12-08] MEDS: 0.9% NaCl Peripheral Flush Adult/Peds IV (04:29)
[2017-12-08] MEDS: Acetaminophen 325 MG Tablet 650 MG PO (04:33)
[2017-12-08 05:30] LABS: Partial Thromboplast Time 50.1 Seconds (24.1-36.2)
[2017-12-08 05:36] LABS: Absolute Lymphocyte Count 1.97 X10^3/ul (0.83-4.51); Basophil# 0.09 X10^3/uL; Basophil% 0.5 % (0-1); Eosinophil# 0.37 X10^3/uL; Eosinophils% 2.1 % (0-5); Hemoglobin 12.2 g/dl (13.0-16.5); Lymphocyte # 1.97 X10^3/ul (4.0); Lymphocyte % 11.1 % (19-41); Mean Corpuscular Hgb 35.2 pg (27.0-32.0); Mean Corpuscular Volume 106.6 fL (80-94); Mean Platelet Vol. 9.7 fl (6.2-12.0); Monocyte% 12.4 % (0-10); Neutrophil # 12.96 X10^3/uL (2.7-7.7); Neutrophil % 73.2 % (47-70); Platelet Count 341 K/mm3 (150-450); RBC Distribution Width CV 13.6 % (11.6-14.6); RBC Distribution Width SD 52.9 fl (35.1-43.9); Red Blood Count 3.47 M/mm3 (4.6-6.2); White Blood Count 17.7 K/mm3 (4.4-11.0)
[2017-12-08 05:38] LABS: Differential Indicated SCAN CRITERIA MET; POSITIVE COUNT NO; POSITIVE DIFFERENTIAL YES; POSITIVE MORPHOLOGY NO
[2017-12-08 05:42] LABS: ALB/GLOB Ratio 0.5 RATIO (0.9-2.4); AST(SGOT) 102 U/L (15-37); Alanine Aminotransfer ALT/SGPT 118 U/L (16-61); Alkaline Phosphatase 160 U/L (45-117); Anion Gap 8 (5-15); BUN 6 mg/dL (7-18); BUN/Creat Ratio 7.2 RATIO (10-20); Calcium,Total 8.6 mg/dL (8.5-10.1); Chloride 105 mmol/L (98-107); Cholesterol 104 mg/dL (200); Creatinine, Serum 0.84 mg/dL (0.70-1.30); EST Glomerular Filtration Rate 103 mL/min (>60); Est Glom Filt Rate - Afr Amer 124 mL/min (>60); Estimated Creatinine Clearance 106.22 ml/min; Globulin 4.3 g/dL (2.2-4.2); Glucose 103 mg/dL (74-106); High Density Lipoprotein 24 mg/dL; Magnesium 1.6 mg/dL (1.6-2.6); Phosphorus 1.7 mg/dL (2.5-4.9); Potassium 3.8 mmol/L (3.5-5.1); Protein, Total 6.3 g/dL (6.4-8.2); Sodium Level 139 mmol/L (136-145); Triglycerides 200 mg/dL; Very Low Density Lipoprotein 40 mg/dL (5-40)
[2017-12-08] MEDS: Piperacil/Tazobactam 3.375 GM/50 ML ML IV ×2 (06:31→13:48)
[2017-12-08] MEDS: Heparin Injection (Vial) 5,000 UNIT/ML VIAL IV ×2 (06:31→18:28)
--- NOTE | 2017-12-08 07:17 | PCM.PROGNOTE ---
Patient Problems: Active and Suspected Problems Lung abscess (Acute) Subjective: The patient was seen and examined at the bedside this morning. Events from the last 24 hours have been reviewed. Patient is currently febrile with a T-max of 102.6?F in the last 24 hours. He remains hemodynamically stable, nonetheless. The patient reports no significant issues this morning. He is tired and attempting to catch up on his rest. He has been attempting to utilize his incentive spirometer as much as possible. Repeat plain film chest x-ray completed this morning was personally reviewed and revealed improved aeration of the patient's right upper lobe. There continues to be persistent opacification of the right mid and lower lung dai. Objective: The patient's most recent lab work, culture data and imaging studies have all been personally reviewed. CTA chest revealed bilateral pulmonary emboli with a 12 x 12 cm homogeneous solid-appearing mass in the right upper lobe. Lower extremity Doppler study was negative for the presence of DVTs. Right upper quadrant ultrasound revealed a slightly thickened gallbladder wall with possible sludge along with fatty liver infiltration and hepatomegaly. Blood cultures along with pulmonary abscess fluid cultures are pending. - Physical Exam General: Alert, Oriented x3, Cooperative, No apparent distress HEENT: Atraumatic, PERRLA, Normocephalic Oral: No Gingival or Mucosal Lesions/ Ulcerations Neck: Supple, No Nodes, Trachea Midline Lungs: No rhonchi, No wheeze, Diminished, - - Small bore thoracic drain remains in place. Cardiovascular: Regular rate, Regular Rhythm, Normal S1, Normal S2, No murmurs Abdomen: Bowel Sounds Present, Soft, Non Tender, Non-Distended, Obese Extremities: No clubbing, No cyanosis, No edema Skin: No breakdown Musculoskeletal: No Tenderness to Palpation of Joints or Extremities, No Muscle Wasting Lymphatic: No Cervical, Supraclavicular, or Inguinal Adenopathy Neurological: Neuro grossly intact Psych/Mental Status: Alert and oriented to time, place, person, mood and affect Vital Signs Temp Pulse Resp BP Pulse Ox 100.5 F H 93 16 126/73 H 94 12/08/17 04:15 12/08/17 06:55 12/08/17 04:15 12/08/17 04:15 12/08/17 04:15 Oxygen Flow Rate (L/min) [4] 2 Oxygen Flow Rate (L/min) [3] 2 Oxygen Flow Rate (L/min) [1 ( 94 Initial Baseline)] Oxygen Flow Rate (L/min) 2 Oxygen Delivery Method [4] Nasal Cannula Oxygen Delivery Method [3] Nasal Cannula Oxygen Delivery Method [2] Room Air Oxygen Delivery Method [1 ( Room Air Initial Baseline)] Oxygen Delivery Method Nasal Cannula Weight: 227 lb 15.998 oz Body Mass Index (BMI) 32.7 Intake and Output for Last 24 Hours 12/06/17 12/07/17 12/08/17 23:59 23:59 23:59 Intake Total 3821.4 / 3821.4 1102 / 1102 Output Total 1275 / 1275 815 / 815 Balance 2546.4 / 2546.4 287 / 287 Laboratory Tests Past 24 Hrs 12/07/17 12/07/17 12/07/17 13:58 14:45 14:58 WBC RBC Hgb Hct MCV MCH MCHC RDW RDW Differential Plt Count MPV Immature Gran % (Auto) Neut % (Auto) Lymph % (Auto) [place] % (Auto) Eos % (Auto) Baso % (Auto) Absolute Neuts (auto) Absolute Lymphs (auto) Total Counted APTT Sodium Potassium Chloride Carbon Dioxide Anion Gap BUN Creatinine Estim Creat Clear Calc Est GFR (MDRD) Af Amer Est GFR (MDRD) Non-Af BUN/Creatinine Ratio Glucose Lactic Acid 1.4 Calcium Phosphorus Magnesium Total Bilirubin AST ALT Alkaline Phosphatase Total Protein Albumin Globulin Albumin/Globulin Ratio Triglycerides Cholesterol LDL Cholesterol VLDL Cholesterol HDL Cholesterol Fluid Source OTHER Fluid Color YELLOW Fluid Appearance TURBID Fluid WBC 4072 Fluid RBC 244 Fluid Tot Cell Count 17.004 Fld Polynuclear WBCs # 9.400 Fld Polynuclear WBCs % 55.4 Fluid Mononuclear WBCs 7.571 Fld Mononuclear WBCs % 44.6 Fluid Neutrophils 92 Fluid Lymphocytes 2 Fluid Monocytes 2 Fluid Other Cells 4 Fl Pathologist Comment May follow Fluid Comment 2 Not Reportable MRSA (PCR) Negative 12/07/17 12/08/17 12/08/17 22:29 04:54 04:54 WBC 17.7 H RBC 3.47 L Hgb 12.2 L Hct 37.0 L MCV 106.6 H MCH 35.2 H MCHC 33.0 RDW 13.6 RDW Differential 52.9 H Plt Count 341 MPV 9.7 Immature Gran % (Auto) 0.700 Neut % (Auto) 73.2 H Lymph % (Auto) 11.1 L [place] % (Auto) 12.4 H Eos % (Auto) 2.1 Baso % (Auto) 0.5 Absolute Neuts (auto) 13.0 H Absolute Lymphs (auto) 1.97 Total Counted Pending APTT 69.2 H Sodium 139 Potassium 3.8 Chloride 105 Carbon Dioxide 26.0 Anion Gap 8 BUN 6 L Creatinine 0.84 Estim Creat Clear Calc 106.22 Est GFR (MDRD) Af Amer 124 Est GFR (MDRD) Non-Af 103 BUN/Creatinine Ratio 7.2 L Glucose 103 Lactic Acid Calcium 8.6 Phosphorus 1.7 L Magnesium 1.6 Total Bilirubin 0.90 AST 102 H ALT 118 H Alkaline Phosphatase 160 H Total Protein 6.3 L Albumin 2.0 L Globulin 4.3 H Albumin/Globulin Ratio 0.5 L Triglycerides 200 H Cholesterol 104 LDL Cholesterol 40 VLDL Cholesterol 40 HDL Cholesterol 24 L Fluid Source Fluid Color Fluid Appearance Fluid WBC Fluid RBC Fluid Tot Cell Count Fld Polynuclear WBCs # Fld Polynuclear WBCs % Fluid Mononuclear WBCs Fld Mononuclear WBCs % Fluid Neutrophils Fluid Lymphocytes Fluid Monocytes Fluid Other Cells Fl Pathologist Comment Fluid Comment 2 MRSA (PCR) 12/08/17 04:54 WBC RBC Hgb Hct MCV MCH MCHC RDW RDW Differential Plt Count MPV Immature Gran % (Auto) Neut % (Auto) Lymph % (Auto) [place] % (Auto) Eos % (Auto) Baso % (Auto) Absolute Neuts (auto) Absolute Lymphs (auto) Total Counted APTT 50.1 H Sodium Potassium Chloride Carbon Dioxide Anion Gap BUN Creatinine Estim Creat Clear Calc Est GFR (MDRD) Af Amer Est GFR (MDRD) Non-Af BUN/Creatinine Ratio Glucose Lactic Acid Calcium Phosphorus Magnesium Total Bilirubin AST ALT Alkaline Phosphatase Total Protein Albumin Globulin Albumin/Globulin Ratio Triglycerides Cholesterol LDL Cholesterol VLDL Cholesterol HDL Cholesterol Fluid Source Fluid Color Fluid Appearance Fluid WBC Fluid RBC Fluid Tot Cell Count Fld Polynuclear WBCs # Fld Polynuclear WBCs % Fluid Mononuclear WBCs Fld Mononuclear WBCs % Fluid Neutrophils Fluid Lymphocytes Fluid Monocytes Fluid Other Cells Fl Pathologist Comment Fluid Comment 2 MRSA (PCR) Clinical Impression(s) from Imaging Studies Chest X-Ray 12/07/17 09:44 IMPRESSION: Opacification of the right hemithorax. This is suggestive of a combination of pleural effusion and underlying consolidation and/or mass lesion. Correlation with a CT scan is recommended. Electronically Signed: Akbar Powers MD at 10:12 EDT Tel [phone], Service support , Chest CTA 12/07/17 10:08 IMPRESSION: Large mass in the right hemithorax as described with right basilar atelectasis and small pleural effusion. Multiple tiny bilateral pulmonary emboli. Electronically Signed: Akbar Powers MD at 11:00 EDT Tel [phone], Service support , Biopsy CT 12/07/17 11:39 IMPRESSION: 1. CT directed drainage of a fluid collection using CT image guidance and image documentation as described. 2. Conscious Sedation protocol utilized with independent monitoring Electronically Signed: Akbar Powers MD at 14:46 EDT Tel [phone], Service support , Abdomen Ultrasound 12/07/17 15:14 IMPRESSION: Slightly thickened gallbladder wall with possible sludge. Fatty liver with hepatomegaly. Electronically Signed: Clarence Rueda DO at 18:34 EDT Tel [phone], Service support , Medical Necessity - Tobacco Use Smoking Status: Never smoker Tobacco Use: Non-smoker Assessment/Plan All Active Problems Lung abscess (Acute) RECOMMENDATIONS: 1. Continue broad-spectrum antibiotics, pending infectious workup. 2. Continue heparin drip for now 3. Phosphorus repletion as ordered. 4. Hepatitis panel and HIV is pending. 5. Wean supplemental oxygen to maintain saturations at or above 90%. Encourage aggressive incentive spirometer use. IMPRESSIONS: 1. Sepsis secondary to pulmonary abscess The patient's chest imaging did demonstrate a large homogenous right upper lobe lung mass, initially concerning for potential malignancy. However, upon CT-guided lung biopsy, the patient was found to have purulent fluid, concerning for pulmonary abscess. A large amount of fluid was drained and sent for cultures. A small bore thoracic drain remains in place. We will plan to continue broad-spectrum antibiotics under the discretion of infectious diseases. Obtain repeat plain film chest x-ray this morning. Wean supplemental oxygen as tolerated and encourage aggressive incentive spirometer use to assist with recruitment of atelectatic lung. 2. Bilateral pulmonary embolism The patient endorses an exceedingly sedentary lifestyle. This may have been the precipitating etiology for his PEs. Regardless, the patient will be continued on a heparin drip, with plans to transition to a oral anticoagulant regimen, once medically stable. 3. Elevated transaminases/hyperbilirubinemia While the patient does have an alcohol abuse history, he appears to have fatty liver disease based upon his right upper quadrant ultrasound. Hepatitis and HIV panel is currently pending. 4. Hypophosphatemia Phosphate repletion as ordered. Recheck levels in the morning. 5. Personal history of gastroesophageal reflux disease/bipolar disorder/alcohol dependence Complicates care, management, recovery and prognosis. Continue PPI therapy. This note was generated with [employer] dictation software. It may contain incorrect words, spelling, and punctuation that were not noted in checking the note before signing. Code Visit Inpatient E&M: 79652 Subs Hosp L3
--- NOTE | 2017-12-08 07:29 | PN_ITS ---
Patient Problems: Active and Suspected Problems Lung abscess (Acute) Subjective: The patient was seen and examined at the bedside this morning. Events from the last 24 hours have been reviewed. Patient is currently febrile with a T-max of 102.6?F in the last 24 hours. He remains hemodynamically stable, nonetheless. The patient reports no significant issues this morning. He is tired and attempting to catch up on his rest. He has been attempting to utilize his incentive spirometer as much as possible. Repeat plain film chest x-ray completed this morning was personally reviewed and revealed improved aeration of the patient's right upper lobe. There continues to be persistent opacification of the right mid and lower lung dai. Objective: The patient's most recent lab work, culture data and imaging studies have all been personally reviewed. CTA chest revealed bilateral pulmonary emboli with a 12 x 12 cm homogeneous solid-appearing mass in the right upper lobe. Lower extremity Doppler study was negative for the presence of DVTs. Right upper quadrant ultrasound revealed a slightly thickened gallbladder wall with possible sludge along with fatty liver infiltration and hepatomegaly. Blood cultures along with pulmonary abscess fluid cultures are pending. - Physical Exam General: Alert, Oriented x3, Cooperative, No apparent distress HEENT: Atraumatic, PERRLA, Normocephalic Oral: No Gingival or Mucosal Lesions/ Ulcerations Neck: Supple, No Nodes, Trachea Midline Lungs: No rhonchi, No wheeze, Diminished, - - Small bore thoracic drain remains in place. Cardiovascular: Regular rate, Regular Rhythm, Normal S1, Normal S2, No murmurs Abdomen: Bowel Sounds Present, Soft, Non Tender, Non-Distended, Obese Extremities: No clubbing, No cyanosis, No edema Skin: No breakdown Musculoskeletal: No Tenderness to Palpation of Joints or Extremities, No Muscle Wasting Lymphatic: No Cervical, Supraclavicular, or Inguinal Adenopathy Neurological: Neuro grossly intact Psych/Mental Status: Alert and oriented to time, place, person, mood and affect Vital Signs Temp Pulse Resp BP Pulse Ox 100.5 F H 93 16 126/73 H 94 12/08/17 04:15 12/08/17 06:55 12/08/17 04:15 12/08/17 04:15 12/08/17 04:15 Oxygen Flow Rate (L/min) [4] 2 Oxygen Flow Rate (L/min) [3] 2 Oxygen Flow Rate (L/min) [1 ( 94 Initial Baseline)] Oxygen Flow Rate (L/min) 2 Oxygen Delivery Method [4] Nasal Cannula Oxygen Delivery Method [3] Nasal Cannula Oxygen Delivery Method [2] Room Air Oxygen Delivery Method [1 ( Room Air Initial Baseline)] Oxygen Delivery Method Nasal Cannula Weight: 227 lb 15.998 oz Body Mass Index (BMI) 32.7 Intake and Output for Last 24 Hours 12/06/17 12/07/17 12/08/17 23:59 23:59 23:59 Intake Total 3821.4 / 3821.4 1102 / 1102 Output Total 1275 / 1275 815 / 815 Balance 2546.4 / 2546.4 287 / 287 Laboratory Tests Past 24 Hrs 12/07/17 12/07/17 12/07/17 13:58 14:45 14:58 WBC RBC Hgb Hct MCV MCH MCHC RDW RDW Differential Plt Count MPV Immature Gran % (Auto) Neut % (Auto) Lymph % (Auto) [place] % (Auto) Eos % (Auto) Baso % (Auto) Absolute Neuts (auto) Absolute Lymphs (auto) Total Counted APTT Sodium Potassium Chloride Carbon Dioxide Anion Gap BUN Creatinine Estim Creat Clear Calc Est GFR (MDRD) Af Amer Est GFR (MDRD) Non-Af BUN/Creatinine Ratio Glucose Lactic Acid 1.4 Calcium Phosphorus Magnesium Total Bilirubin AST ALT Alkaline Phosphatase Total Protein Albumin Globulin Albumin/Globulin Ratio Triglycerides Cholesterol LDL Cholesterol VLDL Cholesterol HDL Cholesterol Fluid Source OTHER Fluid Color YELLOW Fluid Appearance TURBID Fluid WBC 4072 Fluid RBC 244 Fluid Tot Cell Count 17.004 Fld Polynuclear WBCs # 9.400 Fld Polynuclear WBCs % 55.4 Fluid Mononuclear WBCs 7.571 Fld Mononuclear WBCs % 44.6 Fluid Neutrophils 92 Fluid Lymphocytes 2 Fluid Monocytes 2 Fluid Other Cells 4 Fl Pathologist Comment May follow Fluid Comment 2 Not Reportable MRSA (PCR) Negative 12/07/17 12/08/17 12/08/17 22:29 04:54 04:54 WBC 17.7 H RBC 3.47 L Hgb 12.2 L Hct 37.0 L MCV 106.6 H MCH 35.2 H MCHC 33.0 RDW 13.6 RDW Differential 52.9 H Plt Count 341 MPV 9.7 Immature Gran % (Auto) 0.700 Neut % (Auto) 73.2 H Lymph % (Auto) 11.1 L [place] % (Auto) 12.4 H Eos % (Auto) 2.1 Baso % (Auto) 0.5 Absolute Neuts (auto) 13.0 H Absolute Lymphs (auto) 1.97 Total Counted Pending APTT 69.2 H Sodium 139 Potassium 3.8 Chloride 105 Carbon Dioxide 26.0 Anion Gap 8 BUN 6 L Creatinine 0.84 Estim Creat Clear Calc 106.22 Est GFR (MDRD) Af Amer 124 Est GFR (MDRD) Non-Af 103 BUN/Creatinine Ratio 7.2 L Glucose 103 Lactic Acid Calcium 8.6 Phosphorus 1.7 L Magnesium 1.6 Total Bilirubin 0.90 AST 102 H ALT 118 H Alkaline Phosphatase 160 H Total Protein 6.3 L Albumin 2.0 L Globulin 4.3 H Albumin/Globulin Ratio 0.5 L Triglycerides 200 H Cholesterol 104 LDL Cholesterol 40 VLDL Cholesterol 40 HDL Cholesterol 24 L Fluid Source Fluid Color Fluid Appearance Fluid WBC Fluid RBC Fluid Tot Cell Count Fld Polynuclear WBCs # Fld Polynuclear WBCs % Fluid Mononuclear WBCs Fld Mononuclear WBCs % Fluid Neutrophils Fluid Lymphocytes Fluid Monocytes Fluid Other Cells Fl Pathologist Comment Fluid Comment 2 MRSA (PCR) 12/08/17 04:54 WBC RBC Hgb Hct MCV MCH MCHC RDW RDW Differential Plt Count MPV Immature Gran % (Auto) Neut % (Auto) Lymph % (Auto) [place] % (Auto) Eos % (Auto) Baso % (Auto) Absolute Neuts (auto) Absolute Lymphs (auto) Total Counted APTT 50.1 H Sodium Potassium Chloride Carbon Dioxide Anion Gap BUN Creatinine Estim Creat Clear Calc Est GFR (MDRD) Af Amer Est GFR (MDRD) Non-Af BUN/Creatinine Ratio Glucose Lactic Acid Calcium Phosphorus Magnesium Total Bilirubin AST ALT Alkaline Phosphatase Total Protein Albumin Globulin Albumin/Globulin Ratio Triglycerides Cholesterol LDL Cholesterol VLDL Cholesterol HDL Cholesterol Fluid Source Fluid Color Fluid Appearance Fluid WBC Fluid RBC Fluid Tot Cell Count Fld Polynuclear WBCs # Fld Polynuclear WBCs % Fluid Mononuclear WBCs Fld Mononuclear WBCs % Fluid Neutrophils Fluid Lymphocytes Fluid Monocytes Fluid Other Cells Fl Pathologist Comment Fluid Comment 2 MRSA (PCR) Clinical Impression(s) from Imaging Studies Chest X-Ray 12/07/17 09:44 IMPRESSION: Opacification of the right hemithorax. This is suggestive of a combination of pleural effusion and underlying consolidation and/or mass lesion. Correlation with a CT scan is recommended. Electronically Signed: Akbar Powers MD at 10:12 EDT Tel [phone], Service support , Chest CTA 12/07/17 10:08 IMPRESSION: Large mass in the right hemithorax as described with right basilar atelectasis and small pleural effusion. Multiple tiny bilateral pulmonary emboli. Electronically Signed: Akbar Powers MD at 11:00 EDT Tel [phone], Service support , Biopsy CT 12/07/17 11:39 IMPRESSION: 1. CT directed drainage of a fluid collection using CT image guidance and image documentation as described. 2. Conscious Sedation protocol utilized with independent monitoring Electronically Signed: Akbar Powers MD at 14:46 EDT Tel [phone], Service support , Abdomen Ultrasound 12/07/17 15:14 IMPRESSION: Slightly thickened gallbladder wall with possible sludge. Fatty liver with hepatomegaly. Electronically Signed: Clarence Rueda DO at 18:34 EDT Tel [phone], Service support , Medical Necessity - Tobacco Use Smoking Status: Never smoker Tobacco Use: Non-smoker Assessment/Plan All Active Problems Lung abscess (Acute) RECOMMENDATIONS: 1. Continue broad-spectrum antibiotics, pending infectious workup. 2. Continue heparin drip for now 3. Phosphorus repletion as ordered. 4. Hepatitis panel and HIV is pending. 5. Wean supplemental oxygen to maintain saturations at or above 90%. Encourage aggressive incentive spirometer use. IMPRESSIONS: 1. Sepsis secondary to pulmonary abscess The patient's chest imaging did demonstrate a large homogenous right upper lobe lung mass, initially concerning for potential malignancy. However, upon CT- guided lung biopsy, the patient was found to have purulent fluid, concerning for pulmonary abscess. A large amount of fluid was drained and sent for cultures. A small bore thoracic drain remains in place. We will plan to continue broad-spectrum antibiotics under the discretion of infectious diseases. Obtain repeat plain film chest x-ray this morning. Wean supplemental oxygen as tolerated and encourage aggressive incentive spirometer use to assist with recruitment of atelectatic lung. 2. Bilateral pulmonary embolism The patient endorses an exceedingly sedentary lifestyle. This may have been the precipitating etiology for his PEs. Regardless, the patient will be continued on a heparin drip, with plans to transition to a oral anticoagulant regimen, once medically stable. 3. Elevated transaminases/hyperbilirubinemia While the patient does have an alcohol abuse history, he appears to have fatty liver disease based upon his right upper quadrant ultrasound. Hepatitis and HIV panel is currently pending. 4. Hypophosphatemia Phosphate repletion as ordered. Recheck levels in the morning. 5. Personal history of gastroesophageal reflux disease/bipolar disorder/ alcohol dependence Complicates care, management, recovery and prognosis. Continue PPI therapy. This note was generated with [employer] dictation software. It may contain incorrect words, spelling, and punctuation that were not noted in checking the note before signing. Code Visit Inpatient E&M: 83044 Subs Hosp L3
[2017-12-08 07:41] LABS: Body Fluid Total Cells Counted 19.058 10^3/ul
--- NOTE | 2017-12-08 07:50 | RAD_ITS ---
STUDY: X-RAY CHEST REASON FOR EXAM: Male, 52 years old. Fever. Lung abscess and drainage. TECHNIQUE: Single AP portable view of the chest. COMPARISON: Comparison is made with prior examination dated December 07, 2017. FINDINGS: A percutaneous drainage catheter is seen in the right upper lobe in keeping with the recent abscess drainage. Persistent elevation of the right hemidiaphragm with right basilar infiltration and/or atelectasis. The previously seen right upper lobe mass has markedly decreased in size in keeping with the successful drainage of the right upper lobe abscess. Mild increased markings at the left lung base suggestive of early atelectasis. Normal size heart. Normal mediastinum and mateo. Normal visualized pulmonary arteries. Normal visualized aortic arch and descending thoracic aorta. Normal visualized thoracic spine. Normal visualized ribs, clavicles, and shoulders. There is no demonstrated abnormality of the visualized soft tissue structures of the upper abdomen. RAD/Chest 1 View (Portable) IMPRESSION: Decreased size of the right upper lobe mass in keeping with the drainage of the lung abscess. Blunting of the right costophrenic angle with underlying atelectasis and/or infiltration. Mild left basilar atelectasis. Electronically Signed: Akbar Powers MD at 8:22 EDT Tel [phone], Service support ,
[2017-12-08] MEDS: Famotidine 20 MG Tablet PO ×2 (08:05→21:33)
[2017-12-08] MEDS: Venlafaxine XR 150 MG Capsule PO (08:05)
[2017-12-08] MEDS: Propranolol 10 MG Tablet 20 MG PO ×2 (08:05→21:33)
[2017-12-08] MEDS: oxyCODONE 5 MG Tablet 10 MG PO ×2 (08:11→16:04)
[2017-12-08] MEDS: HEPARIN/D5w 25,000 UNITS 25,000 UNITS/250 ML IV.SOLN. 15 UNITS IV (08:11)
--- NOTE | 2017-12-08 08:32 | PCM.RX.CS ---
Consult Pharmacy has been consulted to manage selected antiobiotic: Vancomycin Type of Consult: Follow-up Suspected Infection: Pneumonia Prior Doses of Antibiotics Received/Current Regimen: Medications Vancomycin HCl 1,500 mg/ (Sodium Chloride) 530 mls @ 250 mls/hr IV Q12H REINALDO Last Admin: 12/08/17 04:29 Dose: 250 mls/hr Labs: Sodium 139 mmol/L (136-145) 12/08/17 04:54 Potassium 3.8 mmol/L (3.5-5.1) 12/08/17 04:54 Chloride 105 mmol/L (98-107) 12/08/17 04:54 Carbon Dioxide 26.0 mmol/L (21.0-32.0) 12/08/17 04:54 Anion Gap 8 (5-15) 12/08/17 04:54 BUN 6 mg/dL (7-18) L 12/08/17 04:54 Creatinine 0.84 mg/dL (0.70-1.30) 12/08/17 04:54 Est GFR (MDRD) Af Amer 124 mL/min (>60) 12/08/17 04:54 Est GFR (MDRD) Non-Af 103 mL/min (>60) 12/08/17 04:54 BUN/Creatinine Ratio 7.2 RATIO (10-20) L 12/08/17 04:54 Glucose 103 mg/dL (74-106) 12/08/17 04:54 Weight used for dosin kg Estimated Creatinine Clearance: > 100 mL/m Goal Trough: 15-20 mcg/mL Pharmacy Plan for Drug Dosing: Patient's renal fxn improved. Recommend vancomycin 1250mg IV q8h per protocol, start new dose at noon to avoid overlap with pip/tazo. Same trough Fri at 0400. Pharmacy Service will continue to monitor and adjust dosing as required. Follow-Up Labs: Trough Vancomycin - 12/09 @ 0400
[2017-12-08 11:47] LABS: Pathologist Review Reviewed
[2017-12-08 11:47] LABS: Pathologist Comment/Body Fluid Reviewed
--- NOTE | 2017-12-08 12:33 | NURSING ---
per pharmacist, Vanc and Heparin are compatible according to the IV drug book.
[2017-12-08 12:46] LABS: Partial Thromboplast Time 56.4 Seconds (24.1-36.2)
--- NOTE | 2017-12-08 13:05 | PN_ITS ---
Patient Problems: Active and Suspected Problems Lung abscess (Acute) Sepsis (Acute) Bilateral pulmonary embolism (Acute) Abnormal LFTs (Acute) Subjective: 52-year-old male admitted to the hospital on 12/07/2017 with large right pulmonary abscess and pulmonary emboli. All events of the past 24 Hours have been reviewed Antibiotic day #2, vancomycin and Zosyn initially and changed to Unasyn by Dr. Membreno today VS: Blood pressure and heart rate within normal limits TMAX -102.6, current temp is 98.6 Lab: White blood cell count today is 17.7 with 73% neutrophils. Hemoglobin is 12.2, down from 13.8 at admission. Platelets are normal. AST is 102 today down from 180 and the ALT is 118, down from 154 yesterday. Bilirubin is normal and the alk phos today is 160, down from 238 yesterday. Telemetry - NSR and ST with no significant ectopy X-ray: Chest x-ray today shows decreased fluid in the right mid chest Micro: Drainage from right lung abscess positive for beta-hemolytic organism Subjective: Continues to c/o chest pain but has been doing the IS and the air exchange is better today. SOB is improving. No nausea. He is c/o urinary urgency and urge incontinence. He also has dysuria Objective: PHYSICAL EXAM: GENERAL: alert, oriented X 3, Cooperative, NAD ORAL: moist mucosa, no mucosal lesions NECK: No JVD, supple, trachea midline, no nodes LUNGS: better inspiratory effort today and increased air exchange - dtill somewhat diminished in the RLL, symmetric chest expansion, no conversational dyspnea, no accessory muscle use HEART: RRR, Normal S1 and S2, no rub, no gallop, no murmurs ABDOMEN: soft, NT, ND, BS present, no guarding with palpation EXTREMITIES: no edema, no cyanosis, no calf tenderness SKIN: No rashes, no breakdown NEUROLOGIC: no focal neurologic deficits PSYCH: appropriate, normal affect, pleasant - Physical Exam Vital Signs Temp Pulse Resp BP Pulse Ox 98.6 F 82 18 121/64 H 92 12/08/17 10:15 12/08/17 11:00 12/08/17 10:15 12/08/17 10:15 12/08/17 10:15 Oxygen Flow Rate (L/min) [4] 2 Oxygen Flow Rate (L/min) [3] 2 Oxygen Flow Rate (L/min) [1 ( 94 Initial Baseline)] Oxygen Flow Rate (L/min) 2 Oxygen Delivery Method [4] Nasal Cannula Oxygen Delivery Method [3] Nasal Cannula Oxygen Delivery Method [2] Room Air Oxygen Delivery Method [1 ( Room Air Initial Baseline)] Oxygen Delivery Method Nasal Cannula Weight: 227 lb 15.998 oz Body Mass Index (BMI) 32.7 Intake and Output for Last 24 Hours 12/06/17 12/07/17 12/08/17 23:59 23:59 23:59 Intake Total 3821.4 / 3821.4 1938 / 1938 Output Total 1275 / 1275 1450 / 1450 Balance 2546.4 / 2546.4 488 / 488 Microbiology Past 72 Hours 12/07/17 13:58 Body Fluid Culture - Preliminary Fluid - Other Beta hemolytic organism Laboratory Tests Past 24 Hrs 12/07/17 12/07/17 12/07/17 13:58 14:45 14:58 WBC RBC Hgb Hct MCV MCH MCHC RDW RDW Differential Plt Count MPV Immature Gran % (Auto) Neut % (Auto) Lymph % (Auto) [place] % (Auto) Eos % (Auto) Baso % (Auto) Absolute Neuts (auto) Absolute Lymphs (auto) Total Counted APTT Sodium Potassium Chloride Carbon Dioxide Anion Gap BUN Creatinine Estim Creat Clear Calc Est GFR (MDRD) Af Amer Est GFR (MDRD) Non-Af BUN/Creatinine Ratio Glucose Lactic Acid 1.4 Calcium Phosphorus Magnesium Total Bilirubin AST ALT Alkaline Phosphatase Total Protein Albumin Globulin Albumin/Globulin Ratio Triglycerides Cholesterol LDL Cholesterol VLDL Cholesterol HDL Cholesterol Fluid Source OTHER Fluid Color YELLOW Fluid Appearance TURBID Fluid WBC 18.812 Fluid RBC 244 Fluid Tot Cell Count 19.058 Fld Polynuclear WBCs # 9.400 Fld Polynuclear WBCs % 55.4 Fluid Mononuclear WBCs 7.571 Fld Mononuclear WBCs % 44.6 Fluid Neutrophils 92 Fluid Lymphocytes 2 Fluid Monocytes 2 Fluid Other Cells 4 Fl Pathologist Comment Reviewed Fluid Comment 2 Not Reportable MRSA (PCR) Negative 12/07/17 12/08/17 12/08/17 22:29 04:54 04:54 WBC 17.7 H RBC 3.47 L Hgb 12.2 L Hct 37.0 L MCV 106.6 H MCH 35.2 H MCHC 33.0 RDW 13.6 RDW Differential 52.9 H Plt Count 341 MPV 9.7 Immature Gran % (Auto) 0.700 Neut % (Auto) 73.2 H Lymph % (Auto) 11.1 L [place] % (Auto) 12.4 H Eos % (Auto) 2.1 Baso % (Auto) 0.5 Absolute Neuts (auto) 13.0 H Absolute Lymphs (auto) 1.97 Total Counted Not Reportable APTT 69.2 H Sodium 139 Potassium 3.8 Chloride 105 Carbon Dioxide 26.0 Anion Gap 8 BUN 6 L Creatinine 0.84 Estim Creat Clear Calc 106.22 Est GFR (MDRD) Af Amer 124 Est GFR (MDRD) Non-Af 103 BUN/Creatinine Ratio 7.2 L Glucose 103 Lactic Acid Calcium 8.6 Phosphorus 1.7 L Magnesium 1.6 Total Bilirubin 0.90 AST 102 H ALT 118 H Alkaline Phosphatase 160 H Total Protein 6.3 L Albumin 2.0 L Globulin 4.3 H Albumin/Globulin Ratio 0.5 L Triglycerides 200 H Cholesterol 104 LDL Cholesterol 40 VLDL Cholesterol 40 HDL Cholesterol 24 L Fluid Source Fluid Color Fluid Appearance Fluid WBC Fluid RBC Fluid Tot Cell Count Fld Polynuclear WBCs # Fld Polynuclear WBCs % Fluid Mononuclear WBCs Fld Mononuclear WBCs % Fluid Neutrophils Fluid Lymphocytes Fluid Monocytes Fluid Other Cells Fl Pathologist Comment Fluid Comment 2 MRSA (PCR) 12/08/17 12/08/17 04:54 12:15 WBC RBC Hgb Hct MCV MCH MCHC RDW RDW Differential Plt Count MPV Immature Gran % (Auto) Neut % (Auto) Lymph % (Auto) [place] % (Auto) Eos % (Auto) Baso % (Auto) Absolute Neuts (auto) Absolute Lymphs (auto) Total Counted APTT 50.1 H 56.4 H Sodium Potassium Chloride Carbon Dioxide Anion Gap BUN Creatinine Estim Creat Clear Calc Est GFR (MDRD) Af Amer Est GFR (MDRD) Non-Af BUN/Creatinine Ratio Glucose Lactic Acid Calcium Phosphorus Magnesium Total Bilirubin AST ALT Alkaline Phosphatase Total Protein Albumin Globulin Albumin/Globulin Ratio Triglycerides Cholesterol LDL Cholesterol VLDL Cholesterol HDL Cholesterol Fluid Source Fluid Color Fluid Appearance Fluid WBC Fluid RBC Fluid Tot Cell Count Fld Polynuclear WBCs # Fld Polynuclear WBCs % Fluid Mononuclear WBCs Fld Mononuclear WBCs % Fluid Neutrophils Fluid Lymphocytes Fluid Monocytes Fluid Other Cells Fl Pathologist Comment Fluid Comment 2 MRSA (PCR) Medical Necessity - Tobacco Use Smoking Status: Never smoker Tobacco Use: Non-smoker Assessment/Plan All Active Problems Lung abscess (Acute) Sepsis (Acute) Bilateral pulmonary embolism (Acute) Abnormal LFTs (Acute) Impressions 1. Sepsis due to a R lung abscess - possibly from reflux? Aspiration? - Cytology was negative for malignant cells but did contain multiple organisms. Luminary culture is positive for a beta-hemolytic organism. Blood cultures have no growth to date. 2. BPD I 3. GERD 4. Macrocytosis 5. Abnormal LFTs 6. Hypoalbuminemia 7. Pulmonary emboli with negative bilateral venous ultrasound of the lower extremities 8. Fatty infiltration of the liver with hepatomegaly. Possible gallbladder sludge 9. Stage I diastolic dysfunction Antibiotic transition to Unasyn Continue heparin infusion -if no further intervention is planned will transition to Lovenox tomorrow.or Apixaban Weight the final results of the fluid culture Check a UA and urine culture Still unclear to me why this abscess developed......is he aspirating? or does he drink more than he admits or does he drink and pass out during what he calls a fugue state? He used to drink heavily in the past Code Visit Inpatient E&M: 49311 Subs Hosp L2
--- NOTE | 2017-12-08 14:28 | CASEMGMT ---
Face to Face with patient for initial transition planning/care coordination assessment. RN ANTONY introduced self and role at [facility], pt voices understanding and consents to assessment at this time. Pt is sitting up in chair in no distress at this time. Pt is A/O x4 at this time and answers all questions appropriately at this time. Care providers, pharmacy, and demographics verified. See attached link. Pt voices no further concerns/needs at this time. Advised pt to ask for CM if any further questions/concerns/needs arise, voices understanding. CM to follow for any further discharge planning/needs. PLAN: REJID Bong RN ANTONY
[2017-12-08] MEDS: Benztropine 2 MG Tablet 0.5 MG PO ×2 (15:57→21:33)
--- NOTE | 2017-12-08 16:38 | PCM.PN.ID ---
Patient Problems: Active and Suspected Problems Lung abscess (Acute) Subjective: Feeling better, chest pain mildly improved, no fever. - Physical Exam General: Alert, Cooperative, No apparent distress Lungs: Diminished Cardiovascular: Regular rate, Regular Rhythm Abdomen: Soft, Non Tender, Non-Distended Skin: No rashes Vital Signs Temp Pulse Resp BP Pulse Ox 98.6 F 85 18 121/64 H 92 12/08/17 10:15 12/08/17 15:04 12/08/17 10:15 12/08/17 10:15 12/08/17 10:15 Oxygen Flow Rate (L/min) [4] 2 Oxygen Flow Rate (L/min) [3] 2 Oxygen Flow Rate (L/min) [1 ( 94 Initial Baseline)] Oxygen Flow Rate (L/min) 2 Oxygen Delivery Method [4] Nasal Cannula Oxygen Delivery Method [3] Nasal Cannula Oxygen Delivery Method [2] Room Air Oxygen Delivery Method [1 ( Room Air Initial Baseline)] Oxygen Delivery Method Nasal Cannula Weight: 103.419 kg Body Mass Index (BMI) 32.7 Intake and Output for Last 24 Hours 12/06/17 12/07/17 12/08/17 23:59 23:59 23:59 Intake Total 3821.4 / 3821.4 1938 / 1938 Output Total 1275 / 1275 1450 / 1450 Balance 2546.4 / 2546.4 488 / 488 Microbiology Past 72 Hours 12/07/17 13:58 Gram Stain - Final Fluid - Other Body Fluid Culture - Preliminary Beta hemolytic organism Laboratory Tests Past 24 Hrs 12/07/17 12/07/17 12/07/17 13:58 14:45 22:29 WBC RBC Hgb Hct MCV MCH MCHC RDW RDW Differential Plt Count MPV Immature Gran % (Auto) Neut % (Auto) Lymph % (Auto) [place] % (Auto) Eos % (Auto) Baso % (Auto) Absolute Neuts (auto) Absolute Lymphs (auto) Total Counted APTT 69.2 H Sodium Potassium Chloride Carbon Dioxide Anion Gap BUN Creatinine Estim Creat Clear Calc Est GFR (MDRD) Af Amer Est GFR (MDRD) Non-Af BUN/Creatinine Ratio Glucose Calcium Phosphorus Magnesium Total Bilirubin AST ALT Alkaline Phosphatase Total Protein Albumin Globulin Albumin/Globulin Ratio Triglycerides Cholesterol LDL Cholesterol VLDL Cholesterol HDL Cholesterol Fluid Source OTHER Fluid Color YELLOW Fluid Appearance TURBID Fluid WBC 18.812 Fluid RBC 244 Fluid Tot Cell Count 19.058 Fld Polynuclear WBCs # 9.400 Fld Polynuclear WBCs % 55.4 Fluid Mononuclear WBCs 7.571 Fld Mononuclear WBCs % 44.6 Fluid Neutrophils 92 Fluid Lymphocytes 2 Fluid Monocytes 2 Fluid Other Cells 4 Fl Pathologist Comment Reviewed Fluid Comment 2 Not Reportable MRSA (PCR) Negative 12/08/17 12/08/17 12/08/17 04:54 04:54 04:54 WBC 17.7 H RBC 3.47 L Hgb 12.2 L Hct 37.0 L MCV 106.6 H MCH 35.2 H MCHC 33.0 RDW 13.6 RDW Differential 52.9 H Plt Count 341 MPV 9.7 Immature Gran % (Auto) 0.700 Neut % (Auto) 73.2 H Lymph % (Auto) 11.1 L [place] % (Auto) 12.4 H Eos % (Auto) 2.1 Baso % (Auto) 0.5 Absolute Neuts (auto) 13.0 H Absolute Lymphs (auto) 1.97 Total Counted Not Reportable APTT 50.1 H Sodium 139 Potassium 3.8 Chloride 105 Carbon Dioxide 26.0 Anion Gap 8 BUN 6 L Creatinine 0.84 Estim Creat Clear Calc 106.22 Est GFR (MDRD) Af Amer 124 Est GFR (MDRD) Non-Af 103 BUN/Creatinine Ratio 7.2 L Glucose 103 Calcium 8.6 Phosphorus 1.7 L Magnesium 1.6 Total Bilirubin 0.90 AST 102 H ALT 118 H Alkaline Phosphatase 160 H Total Protein 6.3 L Albumin 2.0 L Globulin 4.3 H Albumin/Globulin Ratio 0.5 L Triglycerides 200 H Cholesterol 104 LDL Cholesterol 40 VLDL Cholesterol 40 HDL Cholesterol 24 L Fluid Source Fluid Color Fluid Appearance Fluid WBC Fluid RBC Fluid Tot Cell Count Fld Polynuclear WBCs # Fld Polynuclear WBCs % Fluid Mononuclear WBCs Fld Mononuclear WBCs % Fluid Neutrophils Fluid Lymphocytes Fluid Monocytes Fluid Other Cells Fl Pathologist Comment Fluid Comment 2 MRSA (PCR) 12/08/17 12:15 WBC RBC Hgb Hct MCV MCH MCHC RDW RDW Differential Plt Count MPV Immature Gran % (Auto) Neut % (Auto) Lymph % (Auto) [place] % (Auto) Eos % (Auto) Baso % (Auto) Absolute Neuts (auto) Absolute Lymphs (auto) Total Counted APTT 56.4 H Sodium Potassium Chloride Carbon Dioxide Anion Gap BUN Creatinine Estim Creat Clear Calc Est GFR (MDRD) Af Amer Est GFR (MDRD) Non-Af BUN/Creatinine Ratio Glucose Calcium Phosphorus Magnesium Total Bilirubin AST ALT Alkaline Phosphatase Total Protein Albumin Globulin Albumin/Globulin Ratio Triglycerides Cholesterol LDL Cholesterol VLDL Cholesterol HDL Cholesterol Fluid Source Fluid Color Fluid Appearance Fluid WBC Fluid RBC Fluid Tot Cell Count Fld Polynuclear WBCs # Fld Polynuclear WBCs % Fluid Mononuclear WBCs Fld Mononuclear WBCs % Fluid Neutrophils Fluid Lymphocytes Fluid Monocytes Fluid Other Cells Fl Pathologist Comment Fluid Comment 2 MRSA (PCR) Medical Necessity - Tobacco Use Smoking Status: Never smoker Tobacco Use: Non-smoker Route of nutrition/ use of supplements: [] Nutritional Intake: [] IV Site: [] Castillo Catheter: [] - Assessment/Plan Antibiotics: [] Assessment/Plan: [] Lung abscess with PEs and transaminitis, h/o etoh abuse Fluid cx with strep-like. Exam and cxr improving. Narrow abx to unasyn. transaminitis - improving. Hep panel pending. H/o etoh abuse. will follow, d/w Dr. Delgado.
[2017-12-08 16:45] LABS: Bacteria 0 SEEN /hpf (None Seen); Mucous, Urine 0 SEEN /hpf (<or=2+); Red Blood Cells-Urine 0 SEEN /hpf (0-5); White Blood Cells 0 SEEN /hpf (0-5)
[2017-12-08 16:55] LABS: Color, Urine Yellow (Yellow); Glucose, Dipstick Normal (Normal); Ketone-Dipstick Negative (Negative); Leukocyte Esterase-Dipstick Negative /ul (Negative); Nitrite-Dipstick Negative (Negative); Occult Blood-Urine Negative /ul (Negative); Protein-Dipstick Negative (Negative); Urine Bilirubin Dipstick Negative (Negative); Urine Clarity Sl. Cloudy (Clear); Urine Urobilinogen 1 mg/dl (Normal)
[2017-12-08 17:04] LABS: Amorphous Sediment 1+ PHOS; Squamous Epithelial Cells - UA 0-5 SEEN /hpf (0-5)
[2017-12-08 18:18] LABS: Partial Thromboplast Time 50.9 Seconds (24.1-36.2)
[2017-12-08] MEDS: Ibuprofen 600 MG Tablet PO (21:31)
[2017-12-08] MEDS: Lithium Carbonate 300mg Capsule 1200 MG PO (21:32)
[2017-12-08] MEDS: traZODone 100 MG Tablet 300 MG PO (21:34)
[2017-12-08] MEDS: QUEtiapine 100 MG Tablet 200 MG PO (21:34)
[2017-12-08] MEDS: Phenazopyridine 95 MG Tablet PO (21:34)
[2017-12-08] MEDS: HEPARIN/D5w 25,000 UNITS 25,000 UNITS/250 ML IV.SOLN. 17 UNITS IV (22:11)
[2017-12-09] VITALS (12 sets, daily range): BP systolic 122–147; BP diastolic 76–93; PULSE 70–98; RESP 16–20; TEMP 36.2–37.3; O2SAT 90–97
[2017-12-09 01:00] LABS: Partial Thromboplast Time 60.8 Seconds (24.1-36.2)
[2017-12-09] MEDS: Phenazopyridine 95 MG Tablet PO ×3 (05:28→21:00)
[2017-12-09 06:51] LABS: Partial Thromboplast Time 58.7 Seconds (24.1-36.2)
--- NOTE | 2017-12-09 06:56 | PCM.PROGNOTE ---
Patient Problems: Active and Suspected Problems Lung abscess (Acute) Sepsis (Acute) Bilateral pulmonary embolism (Acute) Abnormal LFTs (Acute) Subjective: The patient was seen and examined at the bedside this morning. Events from the last 24 hours have been reviewed. The patient is currently afebrile, hemodynamically stable and maintaining appropriate oxygen saturations on room air. The patient's antibiotics were de-escalated yesterday to include Unasyn as monotherapy. Output from the patient's chest drain appears to be slowing. The patient reports feeling well overall. Breathing has improved. Objective: The patient's most recent lab work, culture data and imaging studies have all been personally reviewed. CTA chest revealed bilateral pulmonary emboli with a 12 x 12 cm homogeneous solid-appearing mass in the right upper lobe. Lower extremity Doppler study was negative for the presence of DVTs. Right upper quadrant ultrasound revealed a slightly thickened gallbladder wall with possible sludge along with fatty liver infiltration and hepatomegaly. Blood and urine cultures are pending. Preliminary body fluid Gram stain revealed a beta-hemolytic organism. HIV screen was negative. Hepatitis panel is currently pending. - Physical Exam General: Alert, Oriented x3, Cooperative, No apparent distress HEENT: Atraumatic, PERRLA, Normocephalic Oral: No Gingival or Mucosal Lesions/ Ulcerations Neck: Supple, No Nodes, Trachea Midline Lungs: - - Improving aeration of the right mid and lower lung dai. Left hemithorax is grossly clear to auscultation. No appreciable wheezes, rales or rhonchi. Small bore chest drain remains in place. Cardiovascular: Regular rate, Regular Rhythm, Normal S1, Normal S2, No murmurs Abdomen: Bowel Sounds Present, Soft, Non Tender, Non-Distended Extremities: No clubbing, No cyanosis, No edema Skin: No breakdown Musculoskeletal: No Tenderness to Palpation of Joints or Extremities Lymphatic: No Cervical, Supraclavicular, or Inguinal Adenopathy Neurological: Neuro grossly intact Psych/Mental Status: Alert and oriented to time, place, person, mood and affect Vital Signs Temp Pulse Resp BP Pulse Ox 97.2 F L 76 16 122/76 H 93 12/09/17 03:30 12/09/17 03:30 12/09/17 03:30 12/09/17 03:30 12/09/17 03:30 Oxygen Flow Rate (L/min) [4] 2 Oxygen Flow Rate (L/min) [3] 2 Oxygen Flow Rate (L/min) [1 ( 94 Initial Baseline)] Oxygen Flow Rate (L/min) 2 Oxygen Delivery Method [4] Nasal Cannula Oxygen Delivery Method [3] Nasal Cannula Oxygen Delivery Method [2] Room Air Oxygen Delivery Method [1 ( Room Air Initial Baseline)] Oxygen Delivery Method Room Air Weight: 227 lb 15.998 oz Body Mass Index (BMI) 32.7 Intake and Output for Last 24 Hours 12/07/17 12/08/17 12/09/17 23:59 23:59 23:59 Intake Total 3821.4 / 3821.4 2859.5 / 2859.5 1279 / 1279 Output Total 1275 / 1275 1745 / 1745 2280 / 2280 Balance 2546.4 / 2546.4 1114.5 / 1114.5 -1001 / -1001 Microbiology Past 72 Hours 12/07/17 13:58 Gram Stain - Final Fluid - Other Body Fluid Culture - Preliminary Beta hemolytic organism Laboratory Tests Past 24 Hrs 12/07/17 12/08/17 12/08/17 13:58 04:54 12:15 Total Counted Not Reportable APTT 56.4 H Urine Color Urine Clarity Urine pH Ur Specific [place] Urine Protein Urine Glucose (UA) Urine Ketones Urine Occult Blood Urine Nitrite Urine Bilirubin Urine Urobilinogen Ur Leukocyte Esterase Urine RBC Urine WBC Ur Squamous Epith Cells Amorphous Sediment Urine Bacteria Urine Mucus Fluid WBC 18.812 Fluid Tot Cell Count 19.058 Fl Pathologist Comment Reviewed 12/08/17 12/08/17 12/09/17 16:30 18:00 00:37 Total Counted APTT 50.9 H 60.8 H Urine Color Yellow Urine Clarity Sl. Cloudy Urine pH 7.0 Ur Specific [place] 1.010 Urine Protein Negative Urine Glucose (UA) Normal Urine Ketones Negative Urine Occult Blood Negative Urine Nitrite Negative Urine Bilirubin Negative Urine Urobilinogen 1 H Ur Leukocyte Esterase Negative Urine RBC 0 SEEN Urine WBC 0 SEEN Ur Squamous Epith Cells 0-5 SEEN Amorphous Sediment 1+ PHOS Urine Bacteria 0 SEEN Urine Mucus 0 SEEN Fluid WBC Fluid Tot Cell Count Fl Pathologist Comment 12/09/17 06:25 Total Counted APTT Pending Urine Color Urine Clarity Urine pH Ur Specific [place] Urine Protein Urine Glucose (UA) Urine Ketones Urine Occult Blood Urine Nitrite Urine Bilirubin Urine Urobilinogen Ur Leukocyte Esterase Urine RBC Urine WBC Ur Squamous Epith Cells Amorphous Sediment Urine Bacteria Urine Mucus Fluid WBC Fluid Tot Cell Count Fl Pathologist Comment Clinical Impression(s) from Imaging Studies Chest X-Ray 12/07/17 09:44 IMPRESSION: Opacification of the right hemithorax. This is suggestive of a combination of pleural effusion and underlying consolidation and/or mass lesion. Correlation with a CT scan is recommended. Electronically Signed: Akbar Powers MD at 10:12 EDT Tel [phone], Service support , Chest CTA 12/07/17 10:08 IMPRESSION: Large mass in the right hemithorax as described with right basilar atelectasis and small pleural effusion. Multiple tiny bilateral pulmonary emboli. Electronically Signed: Akbar Powers MD at 11:00 EDT Tel [phone], Service support , Biopsy CT 12/07/17 11:39 IMPRESSION: 1. CT directed drainage of a fluid collection using CT image guidance and image documentation as described. 2. Conscious Sedation protocol utilized with independent monitoring Electronically Signed: Akbar Powers MD at 14:46 EDT Tel [phone], Service support , Abdomen Ultrasound 12/07/17 15:14 IMPRESSION: Slightly thickened gallbladder wall with possible sludge. Fatty liver with hepatomegaly. Electronically Signed: Clarence Rueda DO at 18:34 EDT Tel [phone], Service support , Chest X-Ray 12/08/17 07:50 IMPRESSION: Decreased size of the right upper lobe mass in keeping with the drainage of the lung abscess. Blunting of the right costophrenic angle with underlying atelectasis and/or infiltration. Mild left basilar atelectasis. Electronically Signed: Akbar Powers MD at 8:22 EDT Tel [phone], Service support , Medical Necessity - Tobacco Use Smoking Status: Never smoker Tobacco Use: Non-smoker Assessment/Plan All Active Problems Lung abscess (Acute) Sepsis (Acute) Bilateral pulmonary embolism (Acute) Abnormal LFTs (Acute) RECOMMENDATIONS: 1. Continue antibiotics per ID discretion. 2. Continue heparin drip for now. Plan to transition to oral anticoagulation regimen once thoracic drain is removed. 3. Hepatitis panel is pending. 4. Encourage aggressive incentive spirometer use. 5. Recommend repeat chest imaging in 6-8 weeks following completion of the patient's antibiotic course. 6. Perform walking oximetry study prior to consideration for discharge from the hospital. 7. The patient needs to be followed up in the pulmonary medicine clinic within 2 weeks of his discharge from the hospital. IMPRESSIONS: 1. Sepsis secondary to pulmonary abscess The patient's chest imaging did demonstrate a large homogenous right upper lobe lung mass, initially concerning for potential malignancy. However, upon CT-guided lung biopsy, the patient was found to have purulent fluid, concerning for pulmonary abscess. A large amount of fluid was drained and sent for cultures. A small bore thoracic drain was placed accordingly. Antibiotics will be continued based upon the discretion of infectious diseases. The patient is currently maintaining appropriate oxygen saturations on room air. Continue to encourage aggressive incentive spirometer use to assist with recruitment of atelectatic lung. Consider removal of the patient's small bore chest drain in the next 24 hours. Recommend repeat chest imaging in 6-8 weeks following completion of the patient's antibiotic course. 2. Bilateral pulmonary embolism The patient endorses an exceedingly sedentary lifestyle. This may have been the precipitating etiology for his PEs. Regardless, the patient will be continued on a heparin drip, with plans to transition to a oral anticoagulant regimen, once the patient's chest drain has been removed. 3. Elevated transaminases/hyperbilirubinemia While the patient does have an alcohol abuse history, he appears to have fatty liver disease based upon his right upper quadrant ultrasound. Hepatitis panel is currently pending. 4. Personal history of gastroesophageal reflux disease/bipolar disorder/alcohol dependence Complicates care, management, recovery and prognosis. Continue PPI therapy. This note was generated with [email or web address] software. It may contain incorrect words, spelling, and punctuation that were not noted in checking the note before signing. Code Visit Inpatient E&M: 36000 Subs Hosp L2
--- NOTE | 2017-12-09 07:02 | PN_ITS ---
Patient Problems: Active and Suspected Problems Lung abscess (Acute) Sepsis (Acute) Bilateral pulmonary embolism (Acute) Abnormal LFTs (Acute) Subjective: The patient was seen and examined at the bedside this morning. Events from the last 24 hours have been reviewed. The patient is currently afebrile, hemodynamically stable and maintaining appropriate oxygen saturations on room air. The patient's antibiotics were de-escalated yesterday to include Unasyn as monotherapy. Output from the patient's chest drain appears to be slowing. The patient reports feeling well overall. Breathing has improved. Objective: The patient's most recent lab work, culture data and imaging studies have all been personally reviewed. CTA chest revealed bilateral pulmonary emboli with a 12 x 12 cm homogeneous solid-appearing mass in the right upper lobe. Lower extremity Doppler study was negative for the presence of DVTs. Right upper quadrant ultrasound revealed a slightly thickened gallbladder wall with possible sludge along with fatty liver infiltration and hepatomegaly. Blood and urine cultures are pending. Preliminary body fluid Gram stain revealed a beta-hemolytic organism. HIV screen was negative. Hepatitis panel is currently pending. - Physical Exam General: Alert, Oriented x3, Cooperative, No apparent distress HEENT: Atraumatic, PERRLA, Normocephalic Oral: No Gingival or Mucosal Lesions/ Ulcerations Neck: Supple, No Nodes, Trachea Midline Lungs: - - Improving aeration of the right mid and lower lung dai. Left hemithorax is grossly clear to auscultation. No appreciable wheezes, rales or rhonchi. Small bore chest drain remains in place. Cardiovascular: Regular rate, Regular Rhythm, Normal S1, Normal S2, No murmurs Abdomen: Bowel Sounds Present, Soft, Non Tender, Non-Distended Extremities: No clubbing, No cyanosis, No edema Skin: No breakdown Musculoskeletal: No Tenderness to Palpation of Joints or Extremities Lymphatic: No Cervical, Supraclavicular, or Inguinal Adenopathy Neurological: Neuro grossly intact Psych/Mental Status: Alert and oriented to time, place, person, mood and affect Vital Signs Temp Pulse Resp BP Pulse Ox 97.2 F L 76 16 122/76 H 93 12/09/17 03:30 12/09/17 03:30 12/09/17 03:30 12/09/17 03:30 12/09/17 03:30 Oxygen Flow Rate (L/min) [4] 2 Oxygen Flow Rate (L/min) [3] 2 Oxygen Flow Rate (L/min) [1 ( 94 Initial Baseline)] Oxygen Flow Rate (L/min) 2 Oxygen Delivery Method [4] Nasal Cannula Oxygen Delivery Method [3] Nasal Cannula Oxygen Delivery Method [2] Room Air Oxygen Delivery Method [1 ( Room Air Initial Baseline)] Oxygen Delivery Method Room Air Weight: 227 lb 15.998 oz Body Mass Index (BMI) 32.7 Intake and Output for Last 24 Hours 12/07/17 12/08/17 12/09/17 23:59 23:59 23:59 Intake Total 3821.4 / 3821.4 2859.5 / 2859.5 1279 / 1279 Output Total 1275 / 1275 1745 / 1745 2280 / 2280 Balance 2546.4 / 2546.4 1114.5 / 1114.5 -1001 / -1001 Microbiology Past 72 Hours 12/07/17 13:58 Gram Stain - Final Fluid - Other Body Fluid Culture - Preliminary Beta hemolytic organism Laboratory Tests Past 24 Hrs 12/07/17 12/08/17 12/08/17 13:58 04:54 12:15 Total Counted Not Reportable APTT 56.4 H Urine Color Urine Clarity Urine pH Ur Specific [place] Urine Protein Urine Glucose (UA) Urine Ketones Urine Occult Blood Urine Nitrite Urine Bilirubin Urine Urobilinogen Ur Leukocyte Esterase Urine RBC Urine WBC Ur Squamous Epith Cells Amorphous Sediment Urine Bacteria Urine Mucus Fluid WBC 18.812 Fluid Tot Cell Count 19.058 Fl Pathologist Comment Reviewed 12/08/17 12/08/17 12/09/17 16:30 18:00 00:37 Total Counted APTT 50.9 H 60.8 H Urine Color Yellow Urine Clarity Sl. Cloudy Urine pH 7.0 Ur Specific [place] 1.010 Urine Protein Negative Urine Glucose (UA) Normal Urine Ketones Negative Urine Occult Blood Negative Urine Nitrite Negative Urine Bilirubin Negative Urine Urobilinogen 1 H Ur Leukocyte Esterase Negative Urine RBC 0 SEEN Urine WBC 0 SEEN Ur Squamous Epith Cells 0-5 SEEN Amorphous Sediment 1+ PHOS Urine Bacteria 0 SEEN Urine Mucus 0 SEEN Fluid WBC Fluid Tot Cell Count Fl Pathologist Comment 12/09/17 06:25 Total Counted APTT Pending Urine Color Urine Clarity Urine pH Ur Specific [place] Urine Protein Urine Glucose (UA) Urine Ketones Urine Occult Blood Urine Nitrite Urine Bilirubin Urine Urobilinogen Ur Leukocyte Esterase Urine RBC Urine WBC Ur Squamous Epith Cells Amorphous Sediment Urine Bacteria Urine Mucus Fluid WBC Fluid Tot Cell Count Fl Pathologist Comment Clinical Impression(s) from Imaging Studies Chest X-Ray 12/07/17 09:44 IMPRESSION: Opacification of the right hemithorax. This is suggestive of a combination of pleural effusion and underlying consolidation and/or mass lesion. Correlation with a CT scan is recommended. Electronically Signed: Akbar Powers MD at 10:12 EDT Tel [phone], Service support , Chest CTA 12/07/17 10:08 IMPRESSION: Large mass in the right hemithorax as described with right basilar atelectasis and small pleural effusion. Multiple tiny bilateral pulmonary emboli. Electronically Signed: Akbar Powers MD at 11:00 EDT Tel [phone], Service support , Biopsy CT 12/07/17 11:39 IMPRESSION: 1. CT directed drainage of a fluid collection using CT image guidance and image documentation as described. 2. Conscious Sedation protocol utilized with independent monitoring Electronically Signed: Akbar Powers MD at 14:46 EDT Tel [phone], Service support , Abdomen Ultrasound 12/07/17 15:14 IMPRESSION: Slightly thickened gallbladder wall with possible sludge. Fatty liver with hepatomegaly. Electronically Signed: Clarence Rueda DO at 18:34 EDT Tel [phone], Service support , Chest X-Ray 12/08/17 07:50 IMPRESSION: Decreased size of the right upper lobe mass in keeping with the drainage of the lung abscess. Blunting of the right costophrenic angle with underlying atelectasis and/or infiltration. Mild left basilar atelectasis. Electronically Signed: Akbar Powers MD at 8:22 EDT Tel [phone], Service support , Medical Necessity - Tobacco Use Smoking Status: Never smoker Tobacco Use: Non-smoker Assessment/Plan All Active Problems Lung abscess (Acute) Sepsis (Acute) Bilateral pulmonary embolism (Acute) Abnormal LFTs (Acute) RECOMMENDATIONS: 1. Continue antibiotics per ID discretion. 2. Continue heparin drip for now. Plan to transition to oral anticoagulation regimen once thoracic drain is removed. 3. Hepatitis panel is pending. 4. Encourage aggressive incentive spirometer use. 5. Recommend repeat chest imaging in 6-8 weeks following completion of the patient's antibiotic course. 6. Perform walking oximetry study prior to consideration for discharge from the hospital. 7. The patient needs to be followed up in the pulmonary medicine clinic within 2 weeks of his discharge from the hospital. IMPRESSIONS: 1. Sepsis secondary to pulmonary abscess The patient's chest imaging did demonstrate a large homogenous right upper lobe lung mass, initially concerning for potential malignancy. However, upon CT- guided lung biopsy, the patient was found to have purulent fluid, concerning for pulmonary abscess. A large amount of fluid was drained and sent for cultures. A small bore thoracic drain was placed accordingly. Antibiotics will be continued based upon the discretion of infectious diseases. The patient is currently maintaining appropriate oxygen saturations on room air. Continue to encourage aggressive incentive spirometer use to assist with recruitment of atelectatic lung. Consider removal of the patient's small bore chest drain in the next 24 hours. Recommend repeat chest imaging in 6-8 weeks following completion of the patient's antibiotic course. 2. Bilateral pulmonary embolism The patient endorses an exceedingly sedentary lifestyle. This may have been the precipitating etiology for his PEs. Regardless, the patient will be continued on a heparin drip, with plans to transition to a oral anticoagulant regimen, once the patient's chest drain has been removed. 3. Elevated transaminases/hyperbilirubinemia While the patient does have an alcohol abuse history, he appears to have fatty liver disease based upon his right upper quadrant ultrasound. Hepatitis panel is currently pending. 4. Personal history of gastroesophageal reflux disease/bipolar disorder/ alcohol dependence Complicates care, management, recovery and prognosis. Continue PPI therapy. This note was generated with [employer] software. It may contain incorrect words, spelling, and punctuation that were not noted in checking the note before signing. Code Visit Inpatient E&M: 87781 Subs Hosp L2
[2017-12-09] MEDS: Ibuprofen 600 MG Tablet PO ×2 (09:44→21:00)
[2017-12-09] MEDS: Propranolol 10 MG Tablet 20 MG PO ×2 (09:45→21:01)
[2017-12-09] MEDS: Venlafaxine XR 150 MG Capsule PO (09:45)
[2017-12-09] MEDS: Benztropine 2 MG Tablet 0.5 MG PO ×2 (09:45→20:59)
[2017-12-09] MEDS: Famotidine 20 MG Tablet PO ×2 (09:45→21:00)
[2017-12-09] MEDS: HEPARIN/D5w 25,000 UNITS 25,000 UNITS/250 ML IV.SOLN. 17 UNITS IV (11:25)
[2017-12-09 14:09] LABS: HEPATITIS B SURFACE AG Negative (Negative); Hepatitis A AB, Total Negative (Negative); Hepatitis A IgM Antibody Negative (Negative); Hepatitis B Core AB IgM Negative (Negative); Hepatitis B Core Ab Total Negative (Negative); Hepatitis C Ab <0.1 s/co ratio (0.0-0.9)
[2017-12-09 15:45] LABS: Hep B Surface Antibodies Reactive (.)
--- NOTE | 2017-12-09 15:45 | PN_ITS ---
Patient Problems: Active and Suspected Problems Lung abscess (Acute) Sepsis (Acute) Bilateral pulmonary embolism (Acute) Abnormal LFTs (Acute) Subjective: Mr. Ni is a 52-year-old male with a past medical history of bipolar disorder 1, GERD, macrocytosis, abnormal LFTs, hypoalbuminemia, steatosis and stage I diastolic dysfunction who presented to the emergency room complaining of chest pain. He was diagnosed with a right pulmonary abscess and pulmonary emboli. A percutaneous drain was placed in the right chest by Dr. Powers. Day 3 antibiotics-Unasyn He is afebrile today. Vital signs are stable. He is 95% on room air today. Preliminary on the fluid from the drain is group B strep and group C strep. UA done on 12/08/2017 showed 0 WBCs and 0 RBCs. Patient was complaining of urinary urgency and was started on Pyridium for 6 doses. Minimal DC from the KATHY drain R chest. Pt states he is feeling better. Denies SOB. He ambulated in the cisse today and did not get SOB No diarrhea Chest pain is much improved Urinary urgency and dysuria resolved with AZO Objective: PHYSICAL EXAM: GENERAL: alert, oriented X 3, Cooperative, NAD ORAL: moist mucosa, no mucosal lesions NECK: No JVD, supple, trachea midline, no nodes LUNGS: better inspiratory effort today and increased air exchange in the right lower lung - still somewhat diminished in the RLL, symmetric chest expansion, no conversational dyspnea, no accessory muscle use HEART: RRR, Normal S1 and S2, no rub, no gallop, no murmurs ABDOMEN: soft, NT, ND, BS present, no guarding with palpation EXTREMITIES: no edema, no cyanosis, no calf tenderness SKIN: No rashes, no breakdown NEUROLOGIC: no focal neurologic deficits PSYCH: appropriate, normal affect, pleasant - Physical Exam Vital Signs Temp Pulse Resp BP Pulse Ox 98.1 F 73 16 144/89 H 95 12/09/17 15:00 12/09/17 15:00 12/09/17 15:00 12/09/17 15:00 12/09/17 15:00 Oxygen Flow Rate (L/min) [4] 2 Oxygen Flow Rate (L/min) [3] 2 Oxygen Flow Rate (L/min) [1 ( 94 Initial Baseline)] Oxygen Flow Rate (L/min) 2 Oxygen Delivery Method [4] Nasal Cannula Oxygen Delivery Method [3] Nasal Cannula Oxygen Delivery Method [2] Room Air Oxygen Delivery Method [1 ( Room Air Initial Baseline)] Oxygen Delivery Method Room Air Weight: 227 lb 15.998 oz Body Mass Index (BMI) 32.7 Intake and Output for Last 24 Hours 12/07/17 12/08/17 12/09/17 23:59 23:59 23:59 Intake Total 3821.4 / 3821.4 2859.5 / 2859.5 2079 / 2079 Output Total 1275 / 1275 1745 / 1745 3750 / 3750 Balance 2546.4 / 2546.4 1114.5 / 1114.5 -1671 / -1671 Microbiology Past 72 Hours 12/07/17 14:40 Blood Culture - Preliminary Blood Culture (Wb) - Anticubital Right No growth in 48 hours. 12/07/17 14:35 Blood Culture - Preliminary Blood Culture (Wb) - Anticubital Right No growth in 48 hours. 12/07/17 13:58 Gram Stain - Final Fluid - Other Body Fluid Culture - Preliminary Streptococcus group B Streptococcus group C Anaerobic Culture - Preliminary Checking for anaerobes, further studies to follow. Laboratory Tests Past 24 Hrs 12/08/17 12/08/17 12/09/17 16:30 18:00 00:37 APTT 50.9 H 60.8 H Urine Color Yellow Urine Clarity Sl. Cloudy Urine pH 7.0 Ur Specific [place] 1.010 Urine Protein Negative Urine Glucose (UA) Normal Urine Ketones Negative Urine Occult Blood Negative Urine Nitrite Negative Urine Bilirubin Negative Urine Urobilinogen 1 H Ur Leukocyte Esterase Negative Urine RBC 0 SEEN Urine WBC 0 SEEN Ur Squamous Epith Cells 0-5 SEEN Amorphous Sediment 1+ PHOS Urine Bacteria 0 SEEN Urine Mucus 0 SEEN 12/09/17 06:25 APTT 58.7 H Urine Color Urine Clarity Urine pH Ur Specific [place] Urine Protein Urine Glucose (UA) Urine Ketones Urine Occult Blood Urine Nitrite Urine Bilirubin Urine Urobilinogen Ur Leukocyte Esterase Urine RBC Urine WBC Ur Squamous Epith Cells Amorphous Sediment Urine Bacteria Urine Mucus Medical Necessity - Tobacco Use Smoking Status: Never smoker Tobacco Use: Non-smoker Assessment/Plan All Active Problems Lung abscess (Acute) Sepsis (Acute) Bilateral pulmonary embolism (Acute) Abnormal LFTs (Acute) Impressions 1. Sepsis due to a R lung abscess - possibly from reflux? Aspiration? - Cytology was negative for malignant cells but did contain multiple organisms. Luminary culture is positive for a beta-hemolytic organism. Blood cultures have no growth to date. 2. BPD I 3. GERD 4. Macrocytosis 5. Abnormal LFTs 6. Hypoalbuminemia 7. Pulmonary emboli with negative bilateral venous ultrasound of the lower extremities - WHY? could he have a hypercoagulable disorder 8. Fatty infiltration of the liver with hepatomegaly. Possible gallbladder sludge 9. Stage I diastolic dysfunction ' Drain will be pulled later today or in the AM per Dr. Shah After the drain is pulled will need to start on an oral anticoagulant and stop the hepain drip Augmentin 875 mg BID for 4 weeks at [place]. Will follow up with Dr. Shah post [place]. Recheck CBC in the AM and a CMP Hepatitis panel was negative and the HIV was nonreactive. Abnormal LFT's likely due to steatosis? Code Visit Inpatient E&M: 50390 Subs Hosp L2
--- NOTE | 2017-12-09 16:24 | PCM.PN.ID ---
Patient Problems: Active and Suspected Problems Lung abscess (Acute) Sepsis (Acute) Bilateral pulmonary embolism (Acute) Abnormal LFTs (Acute) Subjective: Feeling much better, chest pain improved, no fever, no n/v/d. - Physical Exam General: Alert, Cooperative, No apparent distress Lungs: Normal air movement, Rhonchi - R sided Cardiovascular: Regular rate, Regular Rhythm Abdomen: Soft, Non Tender, Non-Distended Skin: No rashes Vital Signs Temp Pulse Resp BP Pulse Ox 98.1 F 75 16 144/89 H 95 12/09/17 15:00 12/09/17 15:15 12/09/17 15:00 12/09/17 15:00 12/09/17 15:00 Oxygen Flow Rate (L/min) [4] 2 Oxygen Flow Rate (L/min) [3] 2 Oxygen Flow Rate (L/min) [1 ( 94 Initial Baseline)] Oxygen Flow Rate (L/min) 2 Oxygen Delivery Method [4] Nasal Cannula Oxygen Delivery Method [3] Nasal Cannula Oxygen Delivery Method [2] Room Air Oxygen Delivery Method [1 ( Room Air Initial Baseline)] Oxygen Delivery Method Room Air Weight: 103.419 kg Body Mass Index (BMI) 32.7 Intake and Output for Last 24 Hours 12/07/17 12/08/17 12/09/17 23:59 23:59 23:59 Intake Total 3821.4 / 3821.4 2859.5 / 2859.5 2079 / 2079 Output Total 1275 / 1275 1745 / 1745 3750 / 3750 Balance 2546.4 / 2546.4 1114.5 / 1114.5 -1671 / -1671 Microbiology Past 72 Hours 12/07/17 14:40 Blood Culture - Preliminary Blood Culture (Wb) - Anticubital Right No growth in 48 hours. 12/07/17 14:35 Blood Culture - Preliminary Blood Culture (Wb) - Anticubital Right No growth in 48 hours. 12/07/17 13:58 Gram Stain - Final Fluid - Other Body Fluid Culture - Preliminary Streptococcus group B Streptococcus group C Anaerobic Culture - Preliminary Checking for anaerobes, further studies to follow. Laboratory Tests Past 24 Hrs 12/08/17 12/08/17 12/09/17 16:30 18:00 00:37 APTT 50.9 H 60.8 H Urine Color Yellow Urine Clarity Sl. Cloudy Urine pH 7.0 Ur Specific [place] 1.010 Urine Protein Negative Urine Glucose (UA) Normal Urine Ketones Negative Urine Occult Blood Negative Urine Nitrite Negative Urine Bilirubin Negative Urine Urobilinogen 1 H Ur Leukocyte Esterase Negative Urine RBC 0 SEEN Urine WBC 0 SEEN Ur Squamous Epith Cells 0-5 SEEN Amorphous Sediment 1+ PHOS Urine Bacteria 0 SEEN Urine Mucus 0 SEEN 12/09/17 06:25 APTT 58.7 H Urine Color Urine Clarity Urine pH Ur Specific [place] Urine Protein Urine Glucose (UA) Urine Ketones Urine Occult Blood Urine Nitrite Urine Bilirubin Urine Urobilinogen Ur Leukocyte Esterase Urine RBC Urine WBC Ur Squamous Epith Cells Amorphous Sediment Urine Bacteria Urine Mucus Medical Necessity - Tobacco Use Smoking Status: Never smoker Tobacco Use: Non-smoker Route of nutrition/ use of supplements: [] Nutritional Intake: [] IV Site: [] Castillo Catheter: [] - Assessment/Plan Antibiotics: [] Assessment/Plan: [] Lung abscess with PEs and transaminitis, h/o etoh abuse Fluid cx with strep x2. Exam and cxr improving. Narrowed abx to unasyn. Plan will be for d/c home with 4 week course of augmentin 875mg bid with follow-up cxr. He should stay on abx until abscess is completely resolved. transaminitis - improving. Hep panel pending. H/o etoh abuse. will follow, d/w Dr. Delgado.
[2017-12-09] MEDS: traZODone 100 MG Tablet 300 MG PO (21:00)
[2017-12-09] MEDS: QUEtiapine 100 MG Tablet 200 MG PO (21:00)
[2017-12-09] MEDS: Lithium Carbonate 300mg Capsule 1200 MG PO (21:00)
[2017-12-10] VITALS (8 sets, daily range): BP systolic 118–144; BP diastolic 70–93; PULSE 75–93; RESP 16–18; TEMP 36.9–37.1; O2SAT 94–98
[2017-12-10] MEDS: HEPARIN/D5w 25,000 UNITS 25,000 UNITS/250 ML IV.SOLN. 15 UNITS IV (02:42)
[2017-12-10] MEDS: Phenazopyridine 95 MG Tablet PO ×2 (05:26→12:52)
[2017-12-10] MEDS: Ibuprofen 600 MG Tablet PO (05:26)
[2017-12-10 06:20] LABS: Partial Thromboplast Time 53.8 Seconds (24.1-36.2)
[2017-12-10 06:24] LABS: Differential Indicated MANUAL DIFF; Hematocrit 33.8 % (40-54); Hemoglobin 11.2 g/dl (13.0-16.5); Mean Corp Hgb Conc 33.1 g/gl (32-36); Mean Corpuscular Volume 105.6 fL (80-94); Mean Platelet Vol. 9.4 fl (6.2-12.0); POSITIVE COUNT YES; POSITIVE DIFFERENTIAL YES; POSITIVE MORPHOLOGY YES; Platelet Count 408 K/mm3 (150-450); RBC Distribution Width CV 12.9 % (11.6-14.6); RBC Distribution Width SD 48.9 fl (35.1-43.9); White Blood Count 16.2 K/mm3 (4.4-11.0)
--- NOTE | 2017-12-10 06:29 | PCM.PROGNOTE ---
Patient Problems: Active and Suspected Problems Lung abscess (Acute) Sepsis (Acute) Bilateral pulmonary embolism (Acute) Abnormal LFTs (Acute) Subjective: The patient was seen and examined at the bedside this morning. Events from the last 24 hours have been reviewed. The patient is currently afebrile, hemodynamically stable and maintaining appropriate oxygen saturations on room air. He reports sleeping well overnight without significant complaints this morning. Output from the patient's thoracic drain has nearly ceased. The patient's KATHY drain was removed at the bedside this morning. A 2 x 2 dressing was applied to the patient's chest following removal. Objective: The patient's most recent lab work, culture data and imaging studies have all been personally reviewed. CTA chest revealed bilateral pulmonary emboli with a 12 x 12 cm homogeneous solid-appearing mass in the right upper lobe. Lower extremity Doppler study was negative for the presence of DVTs. Right upper quadrant ultrasound revealed a slightly thickened gallbladder wall with possible sludge along with fatty liver infiltration and hepatomegaly. Blood and urine cultures are pending. Preliminary body fluid Gram stain revealed group B and C Streptococcus. HIV screen was negative. Hepatitis panel is currently pending. - Physical Exam General: Alert, Cooperative, No apparent distress HEENT: Atraumatic, PERRLA, Normocephalic Oral: No Gingival or Mucosal Lesions/ Ulcerations Neck: Supple, No Nodes, Trachea Midline Lungs: No rhonchi, No wheeze, No rales, Diminished, - - Thoracic drain remains in place. Cardiovascular: Regular rate, Regular Rhythm, Normal S1, Normal S2, No murmurs Abdomen: Bowel Sounds Present, Soft, Non Tender, Non-Distended, Obese Extremities: No clubbing, No cyanosis, No edema Skin: No rashes, No breakdown Musculoskeletal: No Tenderness to Palpation of Joints or Extremities, No Muscle Wasting Lymphatic: No Cervical, Supraclavicular, or Inguinal Adenopathy Neurological: Neuro grossly intact Psych/Mental Status: Alert and oriented to time, place, person, mood and affect Vital Signs Temp Pulse Resp BP Pulse Ox 98.5 F 83 16 132/71 H 94 12/10/17 03:00 12/10/17 03:13 12/10/17 03:00 12/10/17 03:00 12/10/17 03:00 Oxygen Flow Rate (L/min) [4] 2 Oxygen Flow Rate (L/min) [3] 2 Oxygen Flow Rate (L/min) [1 ( 94 Initial Baseline)] Oxygen Flow Rate (L/min) 2 Oxygen Delivery Method [4] Nasal Cannula Oxygen Delivery Method [3] Nasal Cannula Oxygen Delivery Method [2] Room Air Oxygen Delivery Method [1 ( Room Air Initial Baseline)] Oxygen Delivery Method Room Air Weight: 227 lb 15.998 oz Body Mass Index (BMI) 32.7 Intake and Output for Last 24 Hours 12/08/17 12/09/17 12/10/17 23:59 23:59 23:59 Intake Total 2859.5 / 2859.5 2579 / 2579 1163 / 1163 Output Total 1745 / 1745 3750 / 3750 310 / 310 Balance 1114.5 / 1114.5 -1171 / -1171 853 / 853 Microbiology Past 72 Hours 12/07/17 14:40 Blood Culture - Preliminary Blood Culture (Wb) - Anticubital Right No growth in 48 hours. 12/07/17 14:35 Blood Culture - Preliminary Blood Culture (Wb) - Anticubital Right No growth in 48 hours. 12/07/17 13:58 Gram Stain - Final Fluid - Other Body Fluid Culture - Preliminary Streptococcus group B Streptococcus group C Anaerobic Culture - Preliminary Checking for anaerobes, further studies to follow. Laboratory Tests Past 24 Hrs 12/09/17 12/10/17 12/10/17 06:25 05:26 05:26 WBC 16.2 H RBC 3.20 L Hgb 11.2 L Hct 33.8 L MCV 105.6 H MCH 35.0 H MCHC 33.1 RDW 12.9 RDW Differential 48.9 H Plt Count 408 MPV 9.4 Neut % (Auto) Not Reportable Absolute Neuts (auto) Not Reportable Total Counted Pending APTT 58.7 H 53.8 H Sodium Potassium Chloride Carbon Dioxide Anion Gap BUN Creatinine Est GFR (MDRD) Af Amer Est GFR (MDRD) Non-Af BUN/Creatinine Ratio Glucose Calcium Total Bilirubin AST ALT Alkaline Phosphatase Total Protein Albumin 12/10/17 05:26 WBC RBC Hgb Hct MCV MCH MCHC RDW RDW Differential Plt Count MPV Neut % (Auto) Absolute Neuts (auto) Total Counted APTT Sodium Pending Potassium Pending Chloride Pending Carbon Dioxide Pending Anion Gap Pending BUN Pending Creatinine Pending Est GFR (MDRD) Af Amer Pending Est GFR (MDRD) Non-Af Pending BUN/Creatinine Ratio Pending Glucose Pending Calcium Pending Total Bilirubin Pending AST Pending ALT Pending Alkaline Phosphatase Pending Total Protein Pending Albumin Pending Clinical Impression(s) from Imaging Studies Chest X-Ray 12/07/17 09:44 IMPRESSION: Opacification of the right hemithorax. This is suggestive of a combination of pleural effusion and underlying consolidation and/or mass lesion. Correlation with a CT scan is recommended. Electronically Signed: Akbar Powers MD at 10:12 EDT Tel [phone], Service support , Chest CTA 12/07/17 10:08 IMPRESSION: Large mass in the right hemithorax as described with right basilar atelectasis and small pleural effusion. Multiple tiny bilateral pulmonary emboli. Electronically Signed: Akbar Powers MD at 11:00 EDT Tel [phone], Service support , Biopsy CT 12/07/17 11:39 IMPRESSION: 1. CT directed drainage of a fluid collection using CT image guidance and image documentation as described. 2. Conscious Sedation protocol utilized with independent monitoring Electronically Signed: Akbar Powers MD at 14:46 EDT Tel [phone], Service support , Abdomen Ultrasound 12/07/17 15:14 IMPRESSION: Slightly thickened gallbladder wall with possible sludge. Fatty liver with hepatomegaly. Electronically Signed: Clarence Rueda DO at 18:34 EDT Tel [phone], Service support , Chest X-Ray 12/08/17 07:50 IMPRESSION: Decreased size of the right upper lobe mass in keeping with the drainage of the lung abscess. Blunting of the right costophrenic angle with underlying atelectasis and/or infiltration. Mild left basilar atelectasis. Electronically Signed: Akbar Powers MD at 8:22 EDT Tel [phone], Service support , Medical Necessity - Tobacco Use Smoking Status: Never smoker Tobacco Use: Non-smoker Assessment/Plan All Active Problems Lung abscess (Acute) Sepsis (Acute) Bilateral pulmonary embolism (Acute) Abnormal LFTs (Acute) RECOMMENDATIONS: 1. Continue antibiotics per ID discretion. 2. Will obtain plain film chest x-ray given KATHY drain removal this morning. 3. If chest x-ray is stable, recommend discontinuation of heparin and transition to oral anticoagulation regimen. 4. Encourage aggressive incentive spirometer use. 5. Recommend repeat chest imaging in 6-8 weeks following completion of the patient's antibiotic course. 6. Perform walking oximetry study prior to consideration for discharge from the hospital. 7. The patient needs to be followed up in the pulmonary medicine clinic within 2 weeks of his discharge from the hospital. IMPRESSIONS: 1. Sepsis secondary to pulmonary abscess The patient's chest imaging did demonstrate a large homogenous right upper lobe lung mass, initially concerning for potential malignancy. However, upon CT-guided lung biopsy, the patient was found to have purulent fluid, concerning for pulmonary abscess. A large amount of fluid was drained and sent for cultures. A small bore thoracic drain was placed accordingly. Antibiotics will be continued based upon the discretion of infectious diseases. The patient is currently maintaining appropriate oxygen saturations on room air. Continue to encourage aggressive incentive spirometer use to assist with recruitment of atelectatic lung. The patient's thoracic drain was removed at the bedside this morning. We will plan to obtain repeat plain film chest x-ray. If stable, plan to discontinue heparin drip and transition to oral anticoagulation regimen. The patient should complete a walking oximetry study prior to consideration for discharge from the hospital. I have advised the patient to follow-up in the pulmonary medicine clinic within 2 weeks of his discharge from the hospital. Repeat chest imaging will be obtained in 6-8 weeks following the completion of his oral antimicrobial regimen. 2. Bilateral pulmonary embolism The patient endorses an exceedingly sedentary lifestyle. This may have been the precipitating etiology for his PEs. The patient's heparin drip can likely be discontinued and the patient transition to oral anticoagulation regimen, following insurance of stability on repeat plain film chest x-ray following drain removal this morning. 3. Elevated transaminases/hyperbilirubinemia While the patient does have an alcohol abuse history, he appears to have fatty liver disease based upon his right upper quadrant ultrasound. Hepatitis and HIV panel were both negative. 4. Personal history of gastroesophageal reflux disease/bipolar disorder/alcohol dependence Complicates care, management, recovery and prognosis. Continue PPI therapy. This note was generated with [employer] software. It may contain incorrect words, spelling, and punctuation that were not noted in checking the note before signing. Code Visit Inpatient E&M: 08837 Subs Hosp L3
[2017-12-10] MEDS: Heparin Injection (Vial) 5,000 UNIT/ML VIAL IV (06:40)
[2017-12-10 06:47] LABS: ALB/GLOB Ratio 0.4 RATIO (0.9-2.4); AST(SGOT) 64 U/L (15-37); Alanine Aminotransfer ALT/SGPT 91 U/L (16-61); Albumin, Serum 1.8 g/dL (3.2-5.0); Alkaline Phosphatase 166 U/L (45-117); Anion Gap 6 (5-15); BUN 4 mg/dL (7-18); BUN/Creat Ratio 5.5 RATIO (10-20); Calcium,Total 8.3 mg/dL (8.5-10.1); Chloride 111 mmol/L (98-107); Creatinine, Serum 0.73 mg/dL (0.70-1.30); EST Glomerular Filtration Rate 119 mL/min (>60); Est Glom Filt Rate - Afr Amer 144 mL/min (>60); Estimated Creatinine Clearance 122.22 ml/min; Glucose 79 mg/dL (74-106); Potassium 3.5 mmol/L (3.5-5.1); Protein, Total 5.8 g/dL (6.4-8.2); Sodium Level 143 mmol/L (136-145)
--- NOTE | 2017-12-10 06:56 | RAD_ITS ---
STUDY: X-RAY CHEST REASON FOR EXAM: Male, 52 years old. Status post removal of chest drainage catheter. History of pulmonary emboli. TECHNIQUE: Single AP portable view of the chest. COMPARISON: 12/08/2017. FINDINGS: The previously inserted catheter in the right chest has been removed. There is persistent right basilar infiltrate/atelectasis. There is increased right pleural effusion. There is improved aeration of the left lung base. Normal size heart. Normal mediastinum and mateo. Normal visualized pulmonary arteries. Normal visualized aortic arch and descending thoracic aorta. The thoracic spine is obscured. Normal visualized ribs, clavicles, and shoulders. There is no demonstrated abnormality of the visualized soft tissue structures of the upper abdomen. RAD/Chest 1 View (Portable) IMPRESSION: Status post removal of right chest drainage catheter. Increased right pleural effusion. Improved aeration of the left lung base. Electronically Signed: Darrell Malone MD at 8:31 EDT Tel , Service support ,
[2017-12-10 07:31] LABS: Eosinophil 4 % (0-5); Lymphocyte 16 % (19-41); Metamyelocyte 1 % (0-1); Monocyte 11 % (0-10); Neutrophil-Band 2 % (0-5); Neutrophil-Segmented 66 % (47-70); Total Cells Counted 100 (MANUAL DIFF)
[2017-12-10 07:32] LABS: Anisocytosis 1+; Macrocytosis 1+; Platelet Estimate ADEQUATE (ADEQ); Platelet Morphology LARGE; Polychromasia 1+
[2017-12-10 07:34] LABS: Absolute Lymphocyte Count 2.59 X10^3/ul (0.83-4.51)
[2017-12-10] MEDS: Benztropine 2 MG Tablet 0.5 MG PO (09:04)
[2017-12-10] MEDS: Propranolol 10 MG Tablet 20 MG PO (09:05)
[2017-12-10] MEDS: Venlafaxine XR 150 MG Capsule PO (09:05)
[2017-12-10] MEDS: Famotidine 20 MG Tablet PO (09:06)
--- NOTE | 2017-12-10 11:54 | PCM.DC ---
- Discharge Diagnoses Current Active Problems: Current Active and Chronic Problems Lung abscess (Acute) Bipolar disorder (Chronic) GERD (gastroesophageal reflux disease) (Chronic) Sepsis (Acute) Bilateral pulmonary embolism (Acute) Abnormal LFTs (Acute) You will use the following diet at home:: Regular Your liquids should be the consistency of: Regular/Thin Discharge Activity: Return to Normal Activity May resume sexual activity in: No Restrictions Call your doctor if you observe: Fever of 101 or Higher, Shortness of breath, Chest pain Allergies/Adverse Reactions: Allergies No Known Allergies Allergy (Verified 01/05/17 23:07) Medications to take at Discharge Omeprazole [Prilosec] 20 mg PO DAILY 05/04/15 Benztropine Mesylate 0.5 mg PO BID 12/07/17 Catarina Carbonate 1,200 mg PO QHS 12/07/17 Propranolol HCl [Inderal (Beta Bijan)] 20 mg PO BID 12/07/17 Quetiapine Fumarate [Seroquel] 200 mg PO QHS 12/07/17 Trazodone HCl 300 mg PO QHS 12/07/17 Venlafaxine XR [Effexor Xr] 150 mg PO DAILY 12/07/17 Amoxicillin/Potassium Clav [Augmentin 875-125 Tablet] 1 ea PO BID #56 tab 12/10/17 Apixaban [Eliquis] 5 mg PO BID #60 tab 12/10/17 The following prescriptions were given: Amoxicillin/Potassium Clav [Augmentin 875-125 Tablet] 1 ea PO BID #56 tab Apixaban [Eliquis] 5 mg PO BID #60 tab Primary Care Physician: Carolyne Chavez MD [Primary Care Provider] - Please follow up with your Primary Care Physician in: one week Test Results: Test results from this visit will be discussed in further detail at your follow-up appointment, if applicable. Please Follow Up With: Bob Shah DO When: two weeks Please Follow Up With: Sathish Real MD When: two weeks Proposed Discharge Date: 12/10/17
--- NOTE | 2017-12-10 11:56 | PCM.DC.SUM ---
Discharge Date and Diagnosis - Problem List Patient Problems: Active and Suspected Problems Lung abscess (Acute) Sepsis (Acute) Bilateral pulmonary embolism (Acute) Abnormal LFTs (Acute) Date of Admission: 12/07/17 Date of Discharge: 12/10/17 - Primary Discharge Diagnosis Active and Suspected Problems Lung abscess (Acute) Sepsis (Acute) Bilateral pulmonary embolism (Acute) Abnormal LFTs (Acute) - Secondary Discharge Diagnosis Chronic Problems Bipolar disorder (Chronic) GERD (gastroesophageal reflux disease) (Chronic) Hospital Course and Treatment Imaging Results: 12/10/17 06:56 CXR [Chest 1 View (Portable)] [RAD] Urgent Diagnostic Data Chest CTA 12/07/17 10:08 IMPRESSION: Large mass in the right hemithorax as described with right basilar atelectasis and small pleural effusion. Multiple tiny bilateral pulmonary emboli. Electronically Signed: Akbar Powers MD at 11:00 EDT Tel [phone], Service support , Biopsy CT 12/07/17 11:39 IMPRESSION: 1. CT directed drainage of a fluid collection using CT image guidance and image documentation as described. 2. Conscious Sedation protocol utilized with independent monitoring Electronically Signed: Akbar Powers MD at 14:46 EDT Tel [phone], Service support , Abdomen Ultrasound 12/07/17 15:14 IMPRESSION: Slightly thickened gallbladder wall with possible sludge. Fatty liver with hepatomegaly. Electronically Signed: Clarence Rueda DO at 18:34 EDT Tel [phone], Service support , Chest X-Ray 12/10/17 06:56 IMPRESSION: Status post removal of right chest drainage catheter. Increased right pleural effusion. Improved aeration of the left lung base. Electronically Signed: Darrell Malone MD at 8:31 EDT Tel , Service support , Laboratory Tests 12/07/17 12/07/17 12/07/17 09:30 09:30 09:30 WBC 16.6 H RBC 3.88 L Hgb 13.8 Hct 41.1 MCV 105.9 H MCH 35.6 H MCHC 33.6 RDW 13.3 RDW Differential 51.2 H Plt Count 376 MPV 9.8 Immature Gran % (Auto) 0.600 Neut % (Auto) 73.5 H Lymph % (Auto) 11.3 L [place] % (Auto) 12.5 H Eos % (Auto) 1.5 Baso % (Auto) 0.6 Absolute Neuts (auto) 12.2 H Absolute Lymphs (auto) 1.87 Total Counted Not Reportable Neutrophils % (Manual) Band Neutrophils % Lymphocytes % (Manual) Monocytes % (Manual) Eosinophils % (Manual) Metamyelocytes % Differential Comment COMMENT Diff Path Review Reviewed Platelet Estimate Plt Morphology Comment Polychromasia Anisocytosis Macrocytosis PT INR APTT D-Dimer Quant (PE/DVT) 3.68 H* Sodium 137 Potassium 4.3 Chloride 101 Carbon Dioxide 27.0 Anion Gap 9 BUN 7 Creatinine 1.15 Estim Creat Clear Calc 77.58 Est GFR (MDRD) Af Amer 86 Est GFR (MDRD) Non-Af 71 BUN/Creatinine Ratio 6.1 L Glucose 174 H Lactic Acid Calcium 9.4 Phosphorus Magnesium Total Bilirubin Direct Bilirubin AST ALT Alkaline Phosphatase Troponin I < 0.015 Total Protein Albumin Globulin Albumin/Globulin Ratio Triglycerides Cholesterol LDL Cholesterol VLDL Cholesterol HDL Cholesterol Lipase TSH 1.84 Urine Color Urine Clarity Urine pH Ur Specific [place] Urine Protein Urine Glucose (UA) Urine Ketones Urine Occult Blood Urine Nitrite Urine Bilirubin Urine Urobilinogen Ur Leukocyte Esterase Urine RBC Urine WBC Ur Squamous Epith Cells Amorphous Sediment Urine Bacteria Urine Mucus Fluid Source Fluid Color Fluid Appearance Fluid WBC Fluid RBC Fluid Tot Cell Count Fld Polynuclear WBCs # Fld Polynuclear WBCs % Fluid Mononuclear WBCs Fld Mononuclear WBCs % Fluid Neutrophils Fluid Lymphocytes Fluid Monocytes Fluid Other Cells Fl Pathologist Comment Fluid Comment 2 [place] Hepatitis A IgM Ab Hepatitis A Ab Total Hep Bs Antigen Hep B Core Total Ab Hep B Core IgM Ab Hepatitis C Ab Confirm Hepatitis C Comment HIV 1&2 Antibody MRSA (PCR) 18 1818 18 09:30 09:30 09:30 WBC RBC Hgb Hct MCV MCH MCHC RDW RDW Differential Plt Count MPV Immature Gran % (Auto) Neut % (Auto) Lymph % (Auto) [place] % (Auto) Eos % (Auto) Baso % (Auto) Absolute Neuts (auto) Absolute Lymphs (auto) Total Counted Neutrophils % (Manual) Band Neutrophils % Lymphocytes % (Manual) Monocytes % (Manual) Eosinophils % (Manual) Metamyelocytes % Differential Comment Diff Path Review Platelet Estimate Plt Morphology Comment Polychromasia Anisocytosis Macrocytosis PT 14.0 INR 1.1 APTT 34.3 D-Dimer Quant (PE/DVT) Sodium Potassium Chloride Carbon Dioxide Anion Gap BUN Creatinine Estim Creat Clear Calc Est GFR (MDRD) Af Amer Est GFR (MDRD) Non-Af BUN/Creatinine Ratio Glucose Lactic Acid Calcium Phosphorus Magnesium Total Bilirubin 1.30 H Direct Bilirubin 0.85 H AST 180 H ALT 154 H Alkaline Phosphatase 238 H Troponin I Total Protein 7.0 Albumin 2.6 L Globulin 4.4 H Albumin/Globulin Ratio Triglycerides Cholesterol LDL Cholesterol VLDL Cholesterol HDL Cholesterol Lipase TSH Urine Color Urine Clarity Urine pH Ur Specific [place] Urine Protein Urine Glucose (UA) Urine Ketones Urine Occult Blood Urine Nitrite Urine Bilirubin Urine Urobilinogen Ur Leukocyte Esterase Urine RBC Urine WBC Ur Squamous Epith Cells Amorphous Sediment Urine Bacteria Urine Mucus Fluid Source Fluid Color Fluid Appearance Fluid WBC Fluid RBC Fluid Tot Cell Count Fld Polynuclear WBCs # Fld Polynuclear WBCs % Fluid Mononuclear WBCs Fld Mononuclear WBCs % Fluid Neutrophils Fluid Lymphocytes Fluid Monocytes Fluid Other Cells Fl Pathologist Comment Fluid Comment 2 [place] 1.20 Hepatitis A IgM Ab Hepatitis A Ab Total Hep Bs Antigen Hep B Core Total Ab Hep B Core IgM Ab Hepatitis C Ab Confirm Hepatitis C Comment HIV 1&2 Antibody MRSA (PCR) 12/07/17 12/07/17 12/07/17 09:30 09:30 09:30 WBC RBC Hgb Hct MCV MCH MCHC RDW RDW Differential Plt Count MPV Immature Gran % (Auto) Neut % (Auto) Lymph % (Auto) [place] % (Auto) Eos % (Auto) Baso % (Auto) Absolute Neuts (auto) Absolute Lymphs (auto) Total Counted Neutrophils % (Manual) Band Neutrophils % Lymphocytes % (Manual) Monocytes % (Manual) Eosinophils % (Manual) Metamyelocytes % Differential Comment Diff Path Review Platelet Estimate Plt Morphology Comment Polychromasia Anisocytosis Macrocytosis PT INR APTT D-Dimer Quant (PE/DVT) Sodium Potassium Chloride Carbon Dioxide Anion Gap BUN Creatinine Estim Creat Clear Calc Est GFR (MDRD) Af Amer Est GFR (MDRD) Non-Af BUN/Creatinine Ratio Glucose Lactic Acid Calcium Phosphorus Magnesium Total Bilirubin Direct Bilirubin AST ALT Alkaline Phosphatase Troponin I Total Protein Albumin Globulin Albumin/Globulin Ratio Triglycerides Cholesterol LDL Cholesterol VLDL Cholesterol HDL Cholesterol Lipase 82 TSH Cancelled Urine Color Urine Clarity Urine pH Ur Specific [place] Urine Protein Urine Glucose (UA) Urine Ketones Urine Occult Blood Urine Nitrite Urine Bilirubin Urine Urobilinogen Ur Leukocyte Esterase Urine RBC Urine WBC Ur Squamous Epith Cells Amorphous Sediment Urine Bacteria Urine Mucus Fluid Source Fluid Color Fluid Appearance Fluid WBC Fluid RBC Fluid Tot Cell Count Fld Polynuclear WBCs # Fld Polynuclear WBCs % Fluid Mononuclear WBCs Fld Mononuclear WBCs % Fluid Neutrophils Fluid Lymphocytes Fluid Monocytes Fluid Other Cells Fl Pathologist Comment Fluid Comment 2 [place] Hepatitis A IgM Ab Negative Hepatitis A Ab Total Negative Hep Bs Antigen Negative Hep B Core Total Ab Negative Hep B Core IgM Ab Negative Hepatitis C Ab Confirm <0.1 Hepatitis C Comment Comment HIV 1&2 Antibody MRSA (PCR) 12/07/17 12/07/17 12/07/17 09:30 13:58 14:45 WBC RBC Hgb Hct MCV MCH MCHC RDW RDW Differential Plt Count MPV Immature Gran % (Auto) Neut % (Auto) Lymph % (Auto) [place] % (Auto) Eos % (Auto) Baso % (Auto) Absolute Neuts (auto) Absolute Lymphs (auto) Total Counted Neutrophils % (Manual) Band Neutrophils % Lymphocytes % (Manual) Monocytes % (Manual) Eosinophils % (Manual) Metamyelocytes % Differential Comment Diff Path Review Platelet Estimate Plt Morphology Comment Polychromasia Anisocytosis Macrocytosis PT INR APTT D-Dimer Quant (PE/DVT) Sodium Potassium Chloride Carbon Dioxide Anion Gap BUN Creatinine Estim Creat Clear Calc Est GFR (MDRD) Af Amer Est GFR (MDRD) Non-Af BUN/Creatinine Ratio Glucose Lactic Acid Calcium Phosphorus Magnesium Total Bilirubin Direct Bilirubin AST ALT Alkaline Phosphatase Troponin I Total Protein Albumin Globulin Albumin/Globulin Ratio Triglycerides Cholesterol LDL Cholesterol VLDL Cholesterol HDL Cholesterol Lipase TSH Urine Color Urine Clarity Urine pH Ur Specific [place] Urine Protein Urine Glucose (UA) Urine Ketones Urine Occult Blood Urine Nitrite Urine Bilirubin Urine Urobilinogen Ur Leukocyte Esterase Urine RBC Urine WBC Ur Squamous Epith Cells Amorphous Sediment Urine Bacteria Urine Mucus Fluid Source OTHER Fluid Color YELLOW Fluid Appearance TURBID Fluid WBC 18.812 Fluid RBC 244 Fluid Tot Cell Count 19.058 Fld Polynuclear WBCs # 9.400 Fld Polynuclear WBCs % 55.4 Fluid Mononuclear WBCs 7.571 Fld Mononuclear WBCs % 44.6 Fluid Neutrophils 92 Fluid Lymphocytes 2 Fluid Monocytes 2 Fluid Other Cells 4 Fl Pathologist Comment Reviewed Fluid Comment 2 Not Reportable [place] Hepatitis A IgM Ab Hepatitis A Ab Total Hep Bs Antigen Hep B Core Total Ab Hep B Core IgM Ab Hepatitis C Ab Confirm Hepatitis C Comment HIV 1&2 Antibody Non-Reactive MRSA (PCR) Negative 12/07/17 12/07/17 12/08/17 14:58 22:29 04:54 WBC 17.7 H RBC 3.47 L Hgb 12.2 L Hct 37.0 L MCV 106.6 H MCH 35.2 H MCHC 33.0 RDW 13.6 RDW Differential 52.9 H Plt Count 341 MPV 9.7 Immature Gran % (Auto) 0.700 Neut % (Auto) 73.2 H Lymph % (Auto) 11.1 L [place] % (Auto) 12.4 H Eos % (Auto) 2.1 Baso % (Auto) 0.5 Absolute Neuts (auto) 13.0 H Absolute Lymphs (auto) 1.97 Total Counted Not Reportable Neutrophils % (Manual) Band Neutrophils % Lymphocytes % (Manual) Monocytes % (Manual) Eosinophils % (Manual) Metamyelocytes % Differential Comment Diff Path Review Platelet Estimate Plt Morphology Comment Polychromasia Anisocytosis Macrocytosis PT INR APTT 69.2 H D-Dimer Quant (PE/DVT) Sodium Potassium Chloride Carbon Dioxide Anion Gap BUN Creatinine Estim Creat Clear Calc Est GFR (MDRD) Af Amer Est GFR (MDRD) Non-Af BUN/Creatinine Ratio Glucose Lactic Acid 1.4 Calcium Phosphorus Magnesium Total Bilirubin Direct Bilirubin AST ALT Alkaline Phosphatase Troponin I Total Protein Albumin Globulin Albumin/Globulin Ratio Triglycerides Cholesterol LDL Cholesterol VLDL Cholesterol HDL Cholesterol Lipase TSH Urine Color Urine Clarity Urine pH Ur Specific [place] Urine Protein Urine Glucose (UA) Urine Ketones Urine Occult Blood Urine Nitrite Urine Bilirubin Urine Urobilinogen Ur Leukocyte Esterase Urine RBC Urine WBC Ur Squamous Epith Cells Amorphous Sediment Urine Bacteria Urine Mucus Fluid Source Fluid Color Fluid Appearance Fluid WBC Fluid RBC Fluid Tot Cell Count Fld Polynuclear WBCs # Fld Polynuclear WBCs % Fluid Mononuclear WBCs Fld Mononuclear WBCs % Fluid Neutrophils Fluid Lymphocytes Fluid Monocytes Fluid Other Cells Fl Pathologist Comment Fluid Comment 2 [place] Hepatitis A IgM Ab Hepatitis A Ab Total Hep Bs Antigen Hep B Core Total Ab Hep B Core IgM Ab Hepatitis C Ab Confirm Hepatitis C Comment HIV 1&2 Antibody MRSA (PCR) 12/08/17 12/08/17 12/08/17 04:54 04:54 12:15 WBC RBC Hgb Hct MCV MCH MCHC RDW RDW Differential Plt Count MPV Immature Gran % (Auto) Neut % (Auto) Lymph % (Auto) [place] % (Auto) Eos % (Auto) Baso % (Auto) Absolute Neuts (auto) Absolute Lymphs (auto) Total Counted Neutrophils % (Manual) Band Neutrophils % Lymphocytes % (Manual) Monocytes % (Manual) Eosinophils % (Manual) Metamyelocytes % Differential Comment Diff Path Review Platelet Estimate Plt Morphology Comment Polychromasia Anisocytosis Macrocytosis PT INR APTT 50.1 H 56.4 H D-Dimer Quant (PE/DVT) Sodium 139 Potassium 3.8 Chloride 105 Carbon Dioxide 26.0 Anion Gap 8 BUN 6 L Creatinine 0.84 Estim Creat Clear Calc 106.22 Est GFR (MDRD) Af Amer 124 Est GFR (MDRD) Non-Af 103 BUN/Creatinine Ratio 7.2 L Glucose 103 Lactic Acid Calcium 8.6 Phosphorus 1.7 L Magnesium 1.6 Total Bilirubin 0.90 Direct Bilirubin AST 102 H ALT 118 H Alkaline Phosphatase 160 H Troponin I Total Protein 6.3 L Albumin 2.0 L Globulin 4.3 H Albumin/Globulin Ratio 0.5 L Triglycerides 200 H Cholesterol 104 LDL Cholesterol 40 VLDL Cholesterol 40 HDL Cholesterol 24 L Lipase TSH Urine Color Urine Clarity Urine pH Ur Specific [place] Urine Protein Urine Glucose (UA) Urine Ketones Urine Occult Blood Urine Nitrite Urine Bilirubin Urine Urobilinogen Ur Leukocyte Esterase Urine RBC Urine WBC Ur Squamous Epith Cells Amorphous Sediment Urine Bacteria Urine Mucus Fluid Source Fluid Color Fluid Appearance Fluid WBC Fluid RBC Fluid Tot Cell Count Fld Polynuclear WBCs # Fld Polynuclear WBCs % Fluid Mononuclear WBCs Fld Mononuclear WBCs % Fluid Neutrophils Fluid Lymphocytes Fluid Monocytes Fluid Other Cells Fl Pathologist Comment Fluid Comment 2 [place] Hepatitis A IgM Ab Hepatitis A Ab Total Hep Bs Antigen Hep B Core Total Ab Hep B Core IgM Ab Hepatitis C Ab Confirm Hepatitis C Comment HIV 1&2 Antibody MRSA (PCR) 12/08/17 12/08/17 12/09/17 16:30 18:00 00:37 WBC RBC Hgb Hct MCV MCH MCHC RDW RDW Differential Plt Count MPV Immature Gran % (Auto) Neut % (Auto) Lymph % (Auto) [place] % (Auto) Eos % (Auto) Baso % (Auto) Absolute Neuts (auto) Absolute Lymphs (auto) Total Counted Neutrophils % (Manual) Band Neutrophils % Lymphocytes % (Manual) Monocytes % (Manual) Eosinophils % (Manual) Metamyelocytes % Differential Comment Diff Path Review Platelet Estimate Plt Morphology Comment Polychromasia Anisocytosis Macrocytosis PT INR APTT 50.9 H 60.8 H D-Dimer Quant (PE/DVT) Sodium Potassium Chloride Carbon Dioxide Anion Gap BUN Creatinine Estim Creat Clear Calc Est GFR (MDRD) Af Amer Est GFR (MDRD) Non-Af BUN/Creatinine Ratio Glucose Lactic Acid Calcium Phosphorus Magnesium Total Bilirubin Direct Bilirubin AST ALT Alkaline Phosphatase Troponin I Total Protein Albumin Globulin Albumin/Globulin Ratio Triglycerides Cholesterol LDL Cholesterol VLDL Cholesterol HDL Cholesterol Lipase TSH Urine Color Yellow Urine Clarity Sl. Cloudy Urine pH 7.0 Ur Specific [place] 1.010 Urine Protein Negative Urine Glucose (UA) Normal Urine Ketones Negative Urine Occult Blood Negative Urine Nitrite Negative Urine Bilirubin Negative Urine Urobilinogen 1 H Ur Leukocyte Esterase Negative Urine RBC 0 SEEN Urine WBC 0 SEEN Ur Squamous Epith Cells 0-5 SEEN Amorphous Sediment 1+ PHOS Urine Bacteria 0 SEEN Urine Mucus 0 SEEN Fluid Source Fluid Color Fluid Appearance Fluid WBC Fluid RBC Fluid Tot Cell Count Fld Polynuclear WBCs # Fld Polynuclear WBCs % Fluid Mononuclear WBCs Fld Mononuclear WBCs % Fluid Neutrophils Fluid Lymphocytes Fluid Monocytes Fluid Other Cells Fl Pathologist Comment Fluid Comment 2 [place] Hepatitis A IgM Ab Hepatitis A Ab Total Hep Bs Antigen Hep B Core Total Ab Hep B Core IgM Ab Hepatitis C Ab Confirm Hepatitis C Comment HIV 1&2 Antibody MRSA (PCR) 12/09/17 12/10/17 12/10/17 06:25 05:26 05:26 WBC 16.2 H RBC 3.20 L Hgb 11.2 L Hct 33.8 L MCV 105.6 H MCH 35.0 H MCHC 33.1 RDW 12.9 RDW Differential 48.9 H Plt Count 408 MPV 9.4 Immature Gran % (Auto) Neut % (Auto) Not Reportable Lymph % (Auto) [place] % (Auto) Eos % (Auto) Baso % (Auto) Absolute Neuts (auto) 11.0 H Absolute Lymphs (auto) 2.59 Total Counted 100 Neutrophils % (Manual) 66 Band Neutrophils % 2 Lymphocytes % (Manual) 16 L Monocytes % (Manual) 11 H Eosinophils % (Manual) 4 Metamyelocytes % 1 Differential Comment Diff Path Review May foll Platelet Estimate ADEQUATE Plt Morphology Comment LARGE Polychromasia 1+ Anisocytosis 1+ Macrocytosis 1+ PT INR APTT 58.7 H 53.8 H D-Dimer Quant (PE/DVT) Sodium Potassium Chloride Carbon Dioxide Anion Gap BUN Creatinine Estim Creat Clear Calc Est GFR (MDRD) Af Amer Est GFR (MDRD) Non-Af BUN/Creatinine Ratio Glucose Lactic Acid Calcium Phosphorus Magnesium Total Bilirubin Direct Bilirubin AST ALT Alkaline Phosphatase Troponin I Total Protein Albumin Globulin Albumin/Globulin Ratio Triglycerides Cholesterol LDL Cholesterol VLDL Cholesterol HDL Cholesterol Lipase TSH Urine Color Urine Clarity Urine pH Ur Specific [place] Urine Protein Urine Glucose (UA) Urine Ketones Urine Occult Blood Urine Nitrite Urine Bilirubin Urine Urobilinogen Ur Leukocyte Esterase Urine RBC Urine WBC Ur Squamous Epith Cells Amorphous Sediment Urine Bacteria Urine Mucus Fluid Source Fluid Color Fluid Appearance Fluid WBC Fluid RBC Fluid Tot Cell Count Fld Polynuclear WBCs # Fld Polynuclear WBCs % Fluid Mononuclear WBCs Fld Mononuclear WBCs % Fluid Neutrophils Fluid Lymphocytes Fluid Monocytes Fluid Other Cells Fl Pathologist Comment Fluid Comment 2 [place] Hepatitis A IgM Ab Hepatitis A Ab Total Hep Bs Antigen Hep B Core Total Ab Hep B Core IgM Ab Hepatitis C Ab Confirm Hepatitis C Comment HIV 1&2 Antibody MRSA (PCR) 12/10/17 05:26 WBC RBC Hgb Hct MCV MCH MCHC RDW RDW Differential Plt Count MPV Immature Gran % (Auto) Neut % (Auto) Lymph % (Auto) [place] % (Auto) Eos % (Auto) Baso % (Auto) Absolute Neuts (auto) Absolute Lymphs (auto) Total Counted Neutrophils % (Manual) Band Neutrophils % Lymphocytes % (Manual) Monocytes % (Manual) Eosinophils % (Manual) Metamyelocytes % Differential Comment Diff Path Review Platelet Estimate Plt Morphology Comment Polychromasia Anisocytosis Macrocytosis PT INR APTT D-Dimer Quant (PE/DVT) Sodium 143 Potassium 3.5 Chloride 111 H Carbon Dioxide 26.0 Anion Gap 6 BUN 4 L Creatinine 0.73 Estim Creat Clear Calc 122.22 Est GFR (MDRD) Af Amer 144 Est GFR (MDRD) Non-Af 119 BUN/Creatinine Ratio 5.5 L Glucose 79 Lactic Acid Calcium 8.3 L Phosphorus Magnesium Total Bilirubin 0.60 Direct Bilirubin AST 64 H ALT 91 H Alkaline Phosphatase 166 H Troponin I Total Protein 5.8 L Albumin 1.8 L Globulin 4.0 Albumin/Globulin Ratio 0.4 L Triglycerides Cholesterol LDL Cholesterol VLDL Cholesterol HDL Cholesterol Lipase TSH Urine Color Urine Clarity Urine pH Ur Specific [place] Urine Protein Urine Glucose (UA) Urine Ketones Urine Occult Blood Urine Nitrite Urine Bilirubin Urine Urobilinogen Ur Leukocyte Esterase Urine RBC Urine WBC Ur Squamous Epith Cells Amorphous Sediment Urine Bacteria Urine Mucus Fluid Source Fluid Color Fluid Appearance Fluid WBC Fluid RBC Fluid Tot Cell Count Fld Polynuclear WBCs # [place]ld Polynuclear WBCs % Fluid Mononuclear WBCs [place]ld Mononuclear WBCs % Fluid Neutrophils Fluid Lymphocytes Fluid Monocytes Fluid Other Cells Fl Pathologist Comment Fluid Comment 2 [place] Hepatitis A IgM Ab Hepatitis A Ab Total Hep Bs Antigen Hep B Core Total Ab Hep B Core IgM Ab Hepatitis C Ab Confirm Hepatitis C Comment HIV 1&2 Antibody MRSA (PCR) pulmonology- Dr Bob Shah infectious disease- Dr Sathish Real Operations: None Procedures: - - chest J tube placement Summary of Care Provided: The patient is a 52 year old M with past medical history of bipolar disorder, obesity and GERD. He was admitted by the ED on 12/07/2017 with a complaint of pleuritic right chest pain with associated shortness of breath. He also complained of fevers, chills and decreased appetite. On admission temperature is 98.4, pulse rate is 124, blood pressure was 140/74, respiratory rate is 18 and pulse ox is 92-94% on room air. White cell count was elevated at 16.6 with 73% neutrophils. Chest x-ray showed opacification of the right hemithorax and chest chest CT showed multiple small intraluminal filling defect in branches of both right and left pulmonary arteries and a 12.2 x 8.9 x 12.4 cm inhomogeneous solid and cystic mass in the right upper lobe. Pulmonology was consulted and a needle biopsy for possible mass was recommended. However in the CAT scan when the needle was inserted there was very foul-smelling yellow liquid and therefore drain was placed by interventional radiology. He was started on IV vancomycin and Zosyn. He was managed for right pulmonary abscess and pulmonary emboli. Antibiotics were switched to IV Unasyn. Preliminary Gram stain and cultures on the fluid from the drain grew group B strep and group C strep. The KATHY drain in the right chest subsequently had minimal drainage and was removed on 12/10/2017. Patient remained stable, white cell count still remained elevated at 16.2 blood plate patient was clinically improved with resolution of chest pain and shortness of breath. KATHY drain was removed on 12/10/2017 patient was discharged home on p.o. Augmentin 875 mg twice daily for 4 weeks. Chest x-ray done on day of discharge showed removal of drain and increasing right-sided pleural effusion. Patient ambulated and saturated at 92-94% on room air with no shortness of breath. Chest x-ray discussed with cut off sawyer Dr. Bob Shah prior to patient's discharge. There is no very concerned about increasing right-sided pleural effusion as patient was totally stable clinically and saturating at 90-94% on room air was 3 much better than when he came in. Plan is to discharge patient home today on Augmentin for 4 weeks as mentioned above. He is to follow-up with his primary care doctor, cut off sawyer and infectious disease doctor. Pain on heparin drip during admission and was switched to p.o. Eliquis 5 mg twice daily for treatment of pulmonary embolism. He is to follow-up for management of that with primary care doctor and cut off sawyer. Patient seen and examined prior to discharge. He felt well and denied any fever or chills, any cough or chest pain, shortness of breath, abdominal pain, any diarrhea vomiting. Patient wanted to be discharged home today as he felt he was doing very well. o/e: GENERAL: alert, oriented X 3, Cooperative, NAD ORAL: moist mucosa, no mucosal lesions NECK: No JVD, supple, trachea midline, no nodes LUNGS: had mildly decreased breath sounds in right mid and lower lung dai, no crackles auscultated. HEART: RRR, Normal S1 and S2, no rub, no gallop, no murmurs ABDOMEN: soft, NT, ND, BS present, no guarding with palpation EXTREMITIES: no edema, no cyanosis, no calf tenderness SKIN: No rashes, no breakdown NEUROLOGIC: no focal neurologic deficits PSYCH: appropriate, normal affect, pleasant Plan as mentioned above. He is to continue on antibiotics until abscess resolves. He is to have a follow-up chest x-ray in 6-8 weeks after completion of antibiotic course. [] Discharge Diet: No Restrictions Discharge Activity: Return to Normal Activity May resume sexual activity in: No Restrictions Call your doctor if you observe: Fever of 101 or Higher, Shortness of breath, Chest pain Home Medications: Medications to take at Discharge Omeprazole [Prilosec] 20 mg PO DAILY 05/04/15 Benztropine Mesylate 0.5 mg PO BID 12/07/17 [place] Carbonate 1,200 mg PO QHS 12/07/17 Propranolol HCl [Inderal (Beta Bijan)] 20 mg PO BID 12/07/17 Quetiapine Fumarate [Seroquel] 200 mg PO QHS 12/07/17 Trazodone HCl 300 mg PO QHS 12/07/17 Venlafaxine XR [Effexor Xr] 150 mg PO DAILY 12/07/17 Amoxicillin/Potassium Clav [Augmentin 875-125 Tablet] 1 ea PO BID #56 tab 12/10/17 Apixaban [Eliquis] 5 mg PO BID #60 tab 12/10/17 Following Prescrptions Were Given to Patient: Amoxicillin/Potassium Clav [Augmentin 875-125 Tablet] 1 ea PO BID #56 tab Apixaban [Eliquis] 5 mg PO BID #60 tab Primary Care Physician: Carolyne Chavez MD [Primary Care Provider] - Please follow up with your Primary Care Physician in: one week Please Follow Up With: Bob Sahh DO When: two weeks Please Follow Up With: Sathish Real MD When: two weeks Disposition: Home Minutes spent on discharge:: 45 Patient Condition:: Stable Medical Necessity - Tobacco Use Smoking Status: Never smoker Tobacco Use: Non-smoker Meaningful Use Info Meaningful Use Diagnoses (Choose all that apply): None applicable Code Visit Inpatient E&M: 78442 Disch Hosp
--- NOTE | 2017-12-10 12:02 | CASEMGMT ---
RNCM Insurance Prescription Review. Per physician pt will need Eliquis on dc. Per [facility] Comm Plan website, Eliquis is preferred medication. No prior authorization is needed. Gini PARIS RN ACM
--- NOTE | 2017-12-10 12:04 | DS.PCM_ITS ---
Discharge Date and Diagnosis - Problem List Patient Problems: Active and Suspected Problems Lung abscess (Acute) Sepsis (Acute) Bilateral pulmonary embolism (Acute) Abnormal LFTs (Acute) Date of Admission: 12/07/17 Date of Discharge: 12/10/17 - Primary Discharge Diagnosis Active and Suspected Problems Lung abscess (Acute) Sepsis (Acute) Bilateral pulmonary embolism (Acute) Abnormal LFTs (Acute) - Secondary Discharge Diagnosis Chronic Problems Bipolar disorder (Chronic) GERD (gastroesophageal reflux disease) (Chronic) Hospital Course and Treatment Imaging Results: 12/10/17 06:56 CXR [Chest 1 View (Portable)] [RAD] Urgent Diagnostic Data Chest CTA 12/07/17 10:08 IMPRESSION: Large mass in the right hemithorax as described with right basilar atelectasis and small pleural effusion. Multiple tiny bilateral pulmonary emboli. Electronically Signed: Akbar Powers MD at 11:00 EDT Tel [phone], Service support , Biopsy CT 12/07/17 11:39 IMPRESSION: 1. CT directed drainage of a fluid collection using CT image guidance and image documentation as described. 2. Conscious Sedation protocol utilized with independent monitoring Electronically Signed: Akbar Powers MD at 14:46 EDT Tel [phone], Service support , Abdomen Ultrasound 12/07/17 15:14 IMPRESSION: Slightly thickened gallbladder wall with possible sludge. Fatty liver with hepatomegaly. Electronically Signed: Clarence Rueda DO at 18:34 EDT Tel [phone], Service support , Chest X-Ray 12/10/17 06:56 IMPRESSION: Status post removal of right chest drainage catheter. Increased right pleural effusion. Improved aeration of the left lung base. Electronically Signed: Darrell Malone MD at 8:31 EDT Tel , Service support , Laboratory Tests 12/07/17 12/07/17 12/07/17 09:30 09:30 09:30 WBC 16.6 H RBC 3.88 L Hgb 13.8 Hct 41.1 MCV 105.9 H MCH 35.6 H MCHC 33.6 RDW 13.3 RDW Differential 51.2 H Plt Count 376 MPV 9.8 Immature Gran % (Auto) 0.600 Neut % (Auto) 73.5 H Lymph % (Auto) 11.3 L [place] % (Auto) 12.5 H Eos % (Auto) 1.5 Baso % (Auto) 0.6 Absolute Neuts (auto) 12.2 H Absolute Lymphs (auto) 1.87 Total Counted Not Reportable Neutrophils % (Manual) Band Neutrophils % Lymphocytes % (Manual) Monocytes % (Manual) Eosinophils % (Manual) Metamyelocytes % Differential Comment COMMENT Diff Path Review Reviewed Platelet Estimate Plt Morphology Comment Polychromasia Anisocytosis Macrocytosis PT INR APTT D-Dimer Quant (PE/DVT) 3.68 H* Sodium 137 Potassium 4.3 Chloride 101 Carbon Dioxide 27.0 Anion Gap 9 BUN 7 Creatinine 1.15 Estim Creat Clear Calc 77.58 Est GFR (MDRD) Af Amer 86 Est GFR (MDRD) Non-Af 71 BUN/Creatinine Ratio 6.1 L Glucose 174 H Lactic Acid Calcium 9.4 Phosphorus Magnesium Total Bilirubin Direct Bilirubin AST ALT Alkaline Phosphatase Troponin I < 0.015 Total Protein Albumin Globulin Albumin/Globulin Ratio Triglycerides Cholesterol LDL Cholesterol VLDL Cholesterol HDL Cholesterol Lipase TSH 1.84 Urine Color Urine Clarity Urine pH Ur Specific [place] Urine Protein Urine Glucose (UA) Urine Ketones Urine Occult Blood Urine Nitrite Urine Bilirubin Urine Urobilinogen Ur Leukocyte Esterase Urine RBC Urine WBC Ur Squamous Epith Cells Amorphous Sediment Urine Bacteria Urine Mucus Fluid Source Fluid Color Fluid Appearance Fluid WBC Fluid RBC Fluid Tot Cell Count Fld Polynuclear WBCs # Fld Polynuclear WBCs % Fluid Mononuclear WBCs Fld Mononuclear WBCs % Fluid Neutrophils Fluid Lymphocytes Fluid Monocytes Fluid Other Cells Fl Pathologist Comment Fluid Comment 2 [place] Hepatitis A IgM Ab Hepatitis A Ab Total Hep Bs Antigen Hep B Core Total Ab Hep B Core IgM Ab Hepatitis C Ab Confirm Hepatitis C Comment HIV 1&2 Antibody MRSA (PCR) 18 1818 18 09:30 09:30 09:30 WBC RBC Hgb Hct MCV MCH MCHC RDW RDW Differential Plt Count MPV Immature Gran % (Auto) Neut % (Auto) Lymph % (Auto) [place] % (Auto) Eos % (Auto) Baso % (Auto) Absolute Neuts (auto) Absolute Lymphs (auto) Total Counted Neutrophils % (Manual) Band Neutrophils % Lymphocytes % (Manual) Monocytes % (Manual) Eosinophils % (Manual) Metamyelocytes % Differential Comment Diff Path Review Platelet Estimate Plt Morphology Comment Polychromasia Anisocytosis Macrocytosis PT 14.0 INR 1.1 APTT 34.3 D-Dimer Quant (PE/DVT) Sodium Potassium Chloride Carbon Dioxide Anion Gap BUN Creatinine Estim Creat Clear Calc Est GFR (MDRD) Af Amer Est GFR (MDRD) Non-Af BUN/Creatinine Ratio Glucose Lactic Acid Calcium Phosphorus Magnesium Total Bilirubin 1.30 H Direct Bilirubin 0.85 H AST 180 H ALT 154 H Alkaline Phosphatase 238 H Troponin I Total Protein 7.0 Albumin 2.6 L Globulin 4.4 H Albumin/Globulin Ratio Triglycerides Cholesterol LDL Cholesterol VLDL Cholesterol HDL Cholesterol Lipase TSH Urine Color Urine Clarity Urine pH Ur Specific [place] Urine Protein Urine Glucose (UA) Urine Ketones Urine Occult Blood Urine Nitrite Urine Bilirubin Urine Urobilinogen Ur Leukocyte Esterase Urine RBC Urine WBC Ur Squamous Epith Cells Amorphous Sediment Urine Bacteria Urine Mucus Fluid Source Fluid Color Fluid Appearance Fluid WBC Fluid RBC Fluid Tot Cell Count Fld Polynuclear WBCs # Fld Polynuclear WBCs % Fluid Mononuclear WBCs Fld Mononuclear WBCs % Fluid Neutrophils Fluid Lymphocytes Fluid Monocytes Fluid Other Cells Fl Pathologist Comment Fluid Comment 2 [place] 1.20 Hepatitis A IgM Ab Hepatitis A Ab Total Hep Bs Antigen Hep B Core Total Ab Hep B Core IgM Ab Hepatitis C Ab Confirm Hepatitis C Comment HIV 1&2 Antibody MRSA (PCR) 12/07/17 12/07/17 12/07/17 09:30 09:30 09:30 WBC RBC Hgb Hct MCV MCH MCHC RDW RDW Differential Plt Count MPV Immature Gran % (Auto) Neut % (Auto) Lymph % (Auto) [place] % (Auto) Eos % (Auto) Baso % (Auto) Absolute Neuts (auto) Absolute Lymphs (auto) Total Counted Neutrophils % (Manual) Band Neutrophils % Lymphocytes % (Manual) Monocytes % (Manual) Eosinophils % (Manual) Metamyelocytes % Differential Comment Diff Path Review Platelet Estimate Plt Morphology Comment Polychromasia Anisocytosis Macrocytosis PT INR APTT D-Dimer Quant (PE/DVT) Sodium Potassium Chloride Carbon Dioxide Anion Gap BUN Creatinine Estim Creat Clear Calc Est GFR (MDRD) Af Amer Est GFR (MDRD) Non-Af BUN/Creatinine Ratio Glucose Lactic Acid Calcium Phosphorus Magnesium Total Bilirubin Direct Bilirubin AST ALT Alkaline Phosphatase Troponin I Total Protein Albumin Globulin Albumin/Globulin Ratio Triglycerides Cholesterol LDL Cholesterol VLDL Cholesterol HDL Cholesterol Lipase 82 TSH Cancelled Urine Color Urine Clarity Urine pH Ur Specific [place] Urine Protein Urine Glucose (UA) Urine Ketones Urine Occult Blood Urine Nitrite Urine Bilirubin Urine Urobilinogen Ur Leukocyte Esterase Urine RBC Urine WBC Ur Squamous Epith Cells Amorphous Sediment Urine Bacteria Urine Mucus Fluid Source Fluid Color Fluid Appearance Fluid WBC Fluid RBC Fluid Tot Cell Count Fld Polynuclear WBCs # Fld Polynuclear WBCs % Fluid Mononuclear WBCs Fld Mononuclear WBCs % Fluid Neutrophils Fluid Lymphocytes Fluid Monocytes Fluid Other Cells Fl Pathologist Comment Fluid Comment 2 [place] Hepatitis A IgM Ab Negative Hepatitis A Ab Total Negative Hep Bs Antigen Negative Hep B Core Total Ab Negative Hep B Core IgM Ab Negative Hepatitis C Ab Confirm <0.1 Hepatitis C Comment Comment HIV 1&2 Antibody MRSA (PCR) 12/07/17 12/07/17 12/07/17 09:30 13:58 14:45 WBC RBC Hgb Hct MCV MCH MCHC RDW RDW Differential Plt Count MPV Immature Gran % (Auto) Neut % (Auto) Lymph % (Auto) [place] % (Auto) Eos % (Auto) Baso % (Auto) Absolute Neuts (auto) Absolute Lymphs (auto) Total Counted Neutrophils % (Manual) Band Neutrophils % Lymphocytes % (Manual) Monocytes % (Manual) Eosinophils % (Manual) Metamyelocytes % Differential Comment Diff Path Review Platelet Estimate Plt Morphology Comment Polychromasia Anisocytosis Macrocytosis PT INR APTT D-Dimer Quant (PE/DVT) Sodium Potassium Chloride Carbon Dioxide Anion Gap BUN Creatinine Estim Creat Clear Calc Est GFR (MDRD) Af Amer Est GFR (MDRD) Non-Af BUN/Creatinine Ratio Glucose Lactic Acid Calcium Phosphorus Magnesium Total Bilirubin Direct Bilirubin AST ALT Alkaline Phosphatase Troponin I Total Protein Albumin Globulin Albumin/Globulin Ratio Triglycerides Cholesterol LDL Cholesterol VLDL Cholesterol HDL Cholesterol Lipase TSH Urine Color Urine Clarity Urine pH Ur Specific [place] Urine Protein Urine Glucose (UA) Urine Ketones Urine Occult Blood Urine Nitrite Urine Bilirubin Urine Urobilinogen Ur Leukocyte Esterase Urine RBC Urine WBC Ur Squamous Epith Cells Amorphous Sediment Urine Bacteria Urine Mucus Fluid Source OTHER Fluid Color YELLOW Fluid Appearance TURBID Fluid WBC 18.812 Fluid RBC 244 Fluid Tot Cell Count 19.058 Fld Polynuclear WBCs # 9.400 Fld Polynuclear WBCs % 55.4 Fluid Mononuclear WBCs 7.571 Fld Mononuclear WBCs % 44.6 Fluid Neutrophils 92 Fluid Lymphocytes 2 Fluid Monocytes 2 Fluid Other Cells 4 Fl Pathologist Comment Reviewed Fluid Comment 2 Not Reportable [place] Hepatitis A IgM Ab Hepatitis A Ab Total Hep Bs Antigen Hep B Core Total Ab Hep B Core IgM Ab Hepatitis C Ab Confirm Hepatitis C Comment HIV 1&2 Antibody Non-Reactive MRSA (PCR) Negative 12/07/17 12/07/17 12/08/17 14:58 22:29 04:54 WBC 17.7 H RBC 3.47 L Hgb 12.2 L Hct 37.0 L MCV 106.6 H MCH 35.2 H MCHC 33.0 RDW 13.6 RDW Differential 52.9 H Plt Count 341 MPV 9.7 Immature Gran % (Auto) 0.700 Neut % (Auto) 73.2 H Lymph % (Auto) 11.1 L [place] % (Auto) 12.4 H Eos % (Auto) 2.1 Baso % (Auto) 0.5 Absolute Neuts (auto) 13.0 H Absolute Lymphs (auto) 1.97 Total Counted Not Reportable Neutrophils % (Manual) Band Neutrophils % Lymphocytes % (Manual) Monocytes % (Manual) Eosinophils % (Manual) Metamyelocytes % Differential Comment Diff Path Review Platelet Estimate Plt Morphology Comment Polychromasia Anisocytosis Macrocytosis PT INR APTT 69.2 H D-Dimer Quant (PE/DVT) Sodium Potassium Chloride Carbon Dioxide Anion Gap BUN Creatinine Estim Creat Clear Calc Est GFR (MDRD) Af Amer Est GFR (MDRD) Non-Af BUN/Creatinine Ratio Glucose Lactic Acid 1.4 Calcium Phosphorus Magnesium Total Bilirubin Direct Bilirubin AST ALT Alkaline Phosphatase Troponin I Total Protein Albumin Globulin Albumin/Globulin Ratio Triglycerides Cholesterol LDL Cholesterol VLDL Cholesterol HDL Cholesterol Lipase TSH Urine Color Urine Clarity Urine pH Ur Specific [place] Urine Protein Urine Glucose (UA) Urine Ketones Urine Occult Blood Urine Nitrite Urine Bilirubin Urine Urobilinogen Ur Leukocyte Esterase Urine RBC Urine WBC Ur Squamous Epith Cells Amorphous Sediment Urine Bacteria Urine Mucus Fluid Source Fluid Color Fluid Appearance Fluid WBC Fluid RBC Fluid Tot Cell Count Fld Polynuclear WBCs # Fld Polynuclear WBCs % Fluid Mononuclear WBCs Fld Mononuclear WBCs % Fluid Neutrophils Fluid Lymphocytes Fluid Monocytes Fluid Other Cells Fl Pathologist Comment Fluid Comment 2 [place] Hepatitis A IgM Ab Hepatitis A Ab Total Hep Bs Antigen Hep B Core Total Ab Hep B Core IgM Ab Hepatitis C Ab Confirm Hepatitis C Comment HIV 1&2 Antibody MRSA (PCR) 12/08/17 12/08/17 12/08/17 04:54 04:54 12:15 WBC RBC Hgb Hct MCV MCH MCHC RDW RDW Differential Plt Count MPV Immature Gran % (Auto) Neut % (Auto) Lymph % (Auto) [place] % (Auto) Eos % (Auto) Baso % (Auto) Absolute Neuts (auto) Absolute Lymphs (auto) Total Counted Neutrophils % (Manual) Band Neutrophils % Lymphocytes % (Manual) Monocytes % (Manual) Eosinophils % (Manual) Metamyelocytes % Differential Comment Diff Path Review Platelet Estimate Plt Morphology Comment Polychromasia Anisocytosis Macrocytosis PT INR APTT 50.1 H 56.4 H D-Dimer Quant (PE/DVT) Sodium 139 Potassium 3.8 Chloride 105 Carbon Dioxide 26.0 Anion Gap 8 BUN 6 L Creatinine 0.84 Estim Creat Clear Calc 106.22 Est GFR (MDRD) Af Amer 124 Est GFR (MDRD) Non-Af 103 BUN/Creatinine Ratio 7.2 L Glucose 103 Lactic Acid Calcium 8.6 Phosphorus 1.7 L Magnesium 1.6 Total Bilirubin 0.90 Direct Bilirubin AST 102 H ALT 118 H Alkaline Phosphatase 160 H Troponin I Total Protein 6.3 L Albumin 2.0 L Globulin 4.3 H Albumin/Globulin Ratio 0.5 L Triglycerides 200 H Cholesterol 104 LDL Cholesterol 40 VLDL Cholesterol 40 HDL Cholesterol 24 L Lipase TSH Urine Color Urine Clarity Urine pH Ur Specific [place] Urine Protein Urine Glucose (UA) Urine Ketones Urine Occult Blood Urine Nitrite Urine Bilirubin Urine Urobilinogen Ur Leukocyte Esterase Urine RBC Urine WBC Ur Squamous Epith Cells Amorphous Sediment Urine Bacteria Urine Mucus Fluid Source Fluid Color Fluid Appearance Fluid WBC Fluid RBC Fluid Tot Cell Count Fld Polynuclear WBCs # Fld Polynuclear WBCs % Fluid Mononuclear WBCs [place]ld Mononuclear WBCs % Fluid Neutrophils Fluid Lymphocytes Fluid Monocytes Fluid Other Cells Fl Pathologist Comment Fluid Comment 2 [place] Hepatitis A IgM Ab Hepatitis A Ab Total Hep Bs Antigen Hep B Core Total Ab Hep B Core IgM Ab Hepatitis C Ab Confirm Hepatitis C Comment HIV 1&2 Antibody MRSA (PCR) 12/08/17 12/08/17 12/09/17 16:30 18:00 00:37 WBC RBC Hgb Hct MCV MCH MCHC RDW RDW Differential Plt Count MPV Immature Gran % (Auto) Neut % (Auto) Lymph % (Auto) [place] % (Auto) Eos % (Auto) Baso % (Auto) Absolute Neuts (auto) Absolute Lymphs (auto) Total Counted Neutrophils % (Manual) Band Neutrophils % Lymphocytes % (Manual) Monocytes % (Manual) Eosinophils % (Manual) Metamyelocytes % Differential Comment Diff Path Review Platelet Estimate Plt Morphology Comment Polychromasia Anisocytosis Macrocytosis PT INR APTT 50.9 H 60.8 H D-Dimer Quant (PE/DVT) Sodium Potassium Chloride Carbon Dioxide Anion Gap BUN Creatinine Estim Creat Clear Calc Est GFR (MDRD) Af Amer Est GFR (MDRD) Non-Af BUN/Creatinine Ratio Glucose Lactic Acid Calcium Phosphorus Magnesium Total Bilirubin Direct Bilirubin AST ALT Alkaline Phosphatase Troponin I Total Protein Albumin Globulin Albumin/Globulin Ratio Triglycerides Cholesterol LDL Cholesterol VLDL Cholesterol HDL Cholesterol Lipase TSH Urine Color Yellow Urine Clarity Sl. Cloudy Urine pH 7.0 Ur Specific [place] 1.010 Urine Protein Negative Urine Glucose (UA) Normal Urine Ketones Negative Urine Occult Blood Negative Urine Nitrite Negative Urine Bilirubin Negative Urine Urobilinogen 1 H Ur Leukocyte Esterase Negative Urine RBC 0 SEEN Urine WBC 0 SEEN Ur Squamous Epith Cells 0-5 SEEN Amorphous Sediment 1+ PHOS Urine Bacteria 0 SEEN Urine Mucus 0 SEEN Fluid Source Fluid Color Fluid Appearance Fluid WBC Fluid RBC Fluid Tot Cell Count Fld Polynuclear WBCs # Fld Polynuclear WBCs % Fluid Mononuclear WBCs Fld Mononuclear WBCs % Fluid Neutrophils Fluid Lymphocytes Fluid Monocytes Fluid Other Cells Fl Pathologist Comment Fluid Comment 2 [place] Hepatitis A IgM Ab Hepatitis A Ab Total Hep Bs Antigen Hep B Core Total Ab Hep B Core IgM Ab Hepatitis C Ab Confirm Hepatitis C Comment HIV 1&2 Antibody MRSA (PCR) 12/09/17 12/10/17 12/10/17 06:25 05:26 05:26 WBC 16.2 H RBC 3.20 L Hgb 11.2 L Hct 33.8 L MCV 105.6 H MCH 35.0 H MCHC 33.1 RDW 12.9 RDW Differential 48.9 H Plt Count 408 MPV 9.4 Immature Gran % (Auto) Neut % (Auto) Not Reportable Lymph % (Auto) [place] % (Auto) Eos % (Auto) Baso % (Auto) Absolute Neuts (auto) 11.0 H Absolute Lymphs (auto) 2.59 Total Counted 100 Neutrophils % (Manual) 66 Band Neutrophils % 2 Lymphocytes % (Manual) 16 L Monocytes % (Manual) 11 H Eosinophils % (Manual) 4 Metamyelocytes % 1 Differential Comment Diff Path Review May foll Platelet Estimate ADEQUATE Plt Morphology Comment LARGE Polychromasia 1+ Anisocytosis 1+ Macrocytosis 1+ PT INR APTT 58.7 H 53.8 H D-Dimer Quant (PE/DVT) Sodium Potassium Chloride Carbon Dioxide Anion Gap BUN Creatinine Estim Creat Clear Calc Est GFR (MDRD) Af Amer Est GFR (MDRD) Non-Af BUN/Creatinine Ratio Glucose Lactic Acid Calcium Phosphorus Magnesium Total Bilirubin Direct Bilirubin AST ALT Alkaline Phosphatase Troponin I Total Protein Albumin Globulin Albumin/Globulin Ratio Triglycerides Cholesterol LDL Cholesterol VLDL Cholesterol HDL Cholesterol Lipase TSH Urine Color Urine Clarity Urine pH Ur Specific [place] Urine Protein Urine Glucose (UA) Urine Ketones Urine Occult Blood Urine Nitrite Urine Bilirubin Urine Urobilinogen Ur Leukocyte Esterase Urine RBC Urine WBC Ur Squamous Epith Cells Amorphous Sediment Urine Bacteria Urine Mucus Fluid Source Fluid Color Fluid Appearance Fluid WBC Fluid RBC Fluid Tot Cell Count Fld Polynuclear WBCs # Fld Polynuclear WBCs % Fluid Mononuclear WBCs Fld Mononuclear WBCs % Fluid Neutrophils Fluid Lymphocytes Fluid Monocytes Fluid Other Cells Fl Pathologist Comment Fluid Comment 2 [place] Hepatitis A IgM Ab Hepatitis A Ab Total Hep Bs Antigen Hep B Core Total Ab Hep B Core IgM Ab Hepatitis C Ab Confirm Hepatitis C Comment HIV 1&2 Antibody MRSA (PCR) 12/10/17 05:26 WBC RBC Hgb Hct MCV MCH MCHC RDW RDW Differential Plt Count MPV Immature Gran % (Auto) Neut % (Auto) Lymph % (Auto) [place] % (Auto) Eos % (Auto) Baso % (Auto) Absolute Neuts (auto) Absolute Lymphs (auto) Total Counted Neutrophils % (Manual) Band Neutrophils % Lymphocytes % (Manual) Monocytes % (Manual) Eosinophils % (Manual) Metamyelocytes % Differential Comment Diff Path Review Platelet Estimate Plt Morphology Comment Polychromasia Anisocytosis Macrocytosis PT INR APTT D-Dimer Quant (PE/DVT) Sodium 143 Potassium 3.5 Chloride 111 H Carbon Dioxide 26.0 Anion Gap 6 BUN 4 L Creatinine 0.73 Estim Creat Clear Calc 122.22 Est GFR (MDRD) Af Amer 144 Est GFR (MDRD) Non-Af 119 BUN/Creatinine Ratio 5.5 L Glucose 79 Lactic Acid Calcium 8.3 L Phosphorus Magnesium Total Bilirubin 0.60 Direct Bilirubin AST 64 H ALT 91 H Alkaline Phosphatase 166 H Troponin I Total Protein 5.8 L Albumin 1.8 L Globulin 4.0 Albumin/Globulin Ratio 0.4 L Triglycerides Cholesterol LDL Cholesterol VLDL Cholesterol HDL Cholesterol Lipase TSH Urine Color Urine Clarity Urine pH Ur Specific [place] Urine Protein Urine Glucose (UA) Urine Ketones Urine Occult Blood Urine Nitrite Urine Bilirubin Urine Urobilinogen Ur Leukocyte Esterase Urine RBC Urine WBC Ur Squamous Epith Cells Amorphous Sediment Urine Bacteria Urine Mucus Fluid Source Fluid Color Fluid Appearance Fluid WBC Fluid RBC Fluid Tot Cell Count [place]ld Polynuclear WBCs # [place]ld Polynuclear WBCs % Fluid Mononuclear WBCs [place]ld Mononuclear WBCs % Fluid Neutrophils Fluid Lymphocytes Fluid Monocytes Fluid Other Cells Fl Pathologist Comment Fluid Comment 2 [place] Hepatitis A IgM Ab Hepatitis A Ab Total Hep Bs Antigen Hep B Core Total Ab Hep B Core IgM Ab Hepatitis C Ab Confirm Hepatitis C Comment HIV 1&2 Antibody MRSA (PCR) pulmonology- Dr Bob Shah infectious disease- Dr Sathish Real Operations: None Procedures: - - chest J tube placement Summary of Care Provided: The patient is a 52 year old M with past medical history of bipolar disorder, obesity and GERD. He was admitted by the ED on 12/07/2017 with a complaint of pleuritic right chest pain with associated shortness of breath. He also complained of fevers, chills and decreased appetite. On admission temperature is 98.4, pulse rate is 124, blood pressure was 140/74, respiratory rate is 18 and pulse ox is 92-94% on room air. White cell count was elevated at 16.6 with 73% neutrophils. Chest x-ray showed opacification of the right hemithorax and chest chest CT showed multiple small intraluminal filling defect in branches of both right and left pulmonary arteries and a 12.2 x 8.9 x 12.4 cm inhomogeneous solid and cystic mass in the right upper lobe. Pulmonology was consulted and a needle biopsy for possible mass was recommended. However in the CAT scan when the needle was inserted there was very foul-smelling yellow liquid and therefore drain was placed by interventional radiology. He was started on IV vancomycin and Zosyn. He was managed for right pulmonary abscess and pulmonary emboli. Antibiotics were switched to IV Unasyn. Preliminary Gram stain and cultures on the fluid from the drain grew group B strep and group C strep. The KATHY drain in the right chest subsequently had minimal drainage and was removed on 12/10/2017. Patient remained stable, white cell count still remained elevated at 16.2 blood plate patient was clinically improved with resolution of chest pain and shortness of breath. KATHY drain was removed on 12/10/2017 patient was discharged home on p.o. Augmentin 875 mg twice daily for 4 weeks. Chest x- ray done on day of discharge showed removal of drain and increasing right-sided pleural effusion. Patient ambulated and saturated at 92-94% on room air with no shortness of breath. Chest x-ray discussed with audio visual project manager Dr. Bob Shah prior to patient's discharge. There is no very concerned about increasing right-sided pleural effusion as patient was totally stable clinically and saturating at 90-94% on room air was 3 much better than when he came in. Plan is to discharge patient home today on Augmentin for 4 weeks as mentioned above. He is to follow-up with his primary care doctor, audio visual project manager and infectious disease doctor. Pain on heparin drip during admission and was switched to p.o. Eliquis 5 mg twice daily for treatment of pulmonary embolism. He is to follow-up for management of that with primary care doctor and audio visual project manager. Patient seen and examined prior to discharge. He felt well and denied any fever or chills, any cough or chest pain, shortness of breath, abdominal pain, any diarrhea vomiting. Patient wanted to be discharged home today as he felt he was doing very well. o/e: GENERAL: alert, oriented X 3, Cooperative, NAD ORAL: moist mucosa, no mucosal lesions NECK: No JVD, supple, trachea midline, no nodes LUNGS: had mildly decreased breath sounds in right mid and lower lung dai, no crackles auscultated. HEART: RRR, Normal S1 and S2, no rub, no gallop, no murmurs ABDOMEN: soft, NT, ND, BS present, no guarding with palpation EXTREMITIES: no edema, no cyanosis, no calf tenderness SKIN: No rashes, no breakdown NEUROLOGIC: no focal neurologic deficits PSYCH: appropriate, normal affect, pleasant Plan as mentioned above. He is to continue on antibiotics until abscess resolves. He is to have a follow-up chest x-ray in 6-8 weeks after completion of antibiotic course. [] Discharge Diet: No Restrictions Discharge Activity: Return to Normal Activity May resume sexual activity in: No Restrictions Call your doctor if you observe: Fever of 101 or Higher, Shortness of breath, Chest pain Home Medications: Medications to take at Discharge Omeprazole [Prilosec] 20 mg PO DAILY 05/04/15 Benztropine Mesylate 0.5 mg PO BID 12/07/17 [place] Carbonate 1,200 mg PO QHS 12/07/17 Propranolol HCl [Inderal (Beta Bijan)] 20 mg PO BID 12/07/17 Quetiapine Fumarate [Seroquel] 200 mg PO QHS 12/07/17 Trazodone HCl 300 mg PO QHS 12/07/17 Venlafaxine XR [Effexor Xr] 150 mg PO DAILY 12/07/17 Amoxicillin/Potassium Clav [Augmentin 875-125 Tablet] 1 ea PO BID #56 tab Apixaban [Eliquis] 5 mg PO BID #60 tab 12/10/17 Following Prescrptions Were Given to Patient: Amoxicillin/Potassium Clav [Augmentin 875-125 Tablet] 1 ea PO BID #56 tab Apixaban [Eliquis] 5 mg PO BID #60 tab Primary Care Physician: Carolyne Chavez MD [Primary Care Provider] - Please follow up with your Primary Care Physician in: one week Please Follow Up With: Bob Shah DO When: two weeks Please Follow Up With: Sathish Real MD When: two weeks Disposition: Home Minutes spent on discharge:: 45 Patient Condition:: Stable Medical Necessity - Tobacco Use Smoking Status: Never smoker Tobacco Use: Non-smoker Meaningful Use Info Meaningful Use Diagnoses (Choose all that apply): None applicable Code Visit Inpatient E&M: 17493 Disch Hosp
[2017-12-10] MEDS: APIXABAN 5 MG TABLET PO (12:52)
[2017-12-12 14:08] LABS: Pathologist Review Reviewed
== END 2017-12-10 13:41 | disposition home or self-care (01) | DRG 137 ==
LOC: ED 10:26 → PCU 11:58
PROVIDERS: Hospitalist; Internal Medicine Critical Care Medicine; Internal Medicine Infectious Disease; Admitting Provider Internal Medicine; Emergency Provider Emergency Medicine; Family Provider Internal Medicine; PCP Internal Medicine; Visit Provider Student in an Organized Health Care Education/Training Program
DX: J85.2 Abscess of lung without pneumonia (principal); J98.11 Atelectasis; I26.99 Other pulmonary embolism without acute cor pulmonale; F10.10 Alcohol abuse, uncomplicated; K21.9 Gastro-esophageal reflux disease without esophagitis; F31.9 Bipolar disorder, unspecified; K76.0 Fatty (change of) liver, not elsewhere classified; E88.09 Other disorders of plasma-protein metabolism, not elsewhere classified; E66.9 Obesity, unspecified; Z68.32 Body mass index [BMI] 32.0-32.9, adult
CPT/HCPCS: 36415; 71045; 71275; 76705; 77012; 80048; 80053; 80061; 80076; 80178; 81001; 83605; 83690; 83735; 84100; 84443; 84484; 85025; 85379; 85610; 85730; 86703; 86704; 86705; 86706; 86708; 86709; 86803; 87015; 87040; 87070; 87075; 87077; 87086; 87101; 87116; 87186; 87205; 87206; 87340; 87641; 89050; 93005; 93306; 93970; 97162; 97166; 97530; 97802; 99156; 99285; J7030; J7040; J7050; J7120; Q9957; Q9967; A4216; J0295

== ENCOUNTER 2017-12-23 16:07 | Emergency (ER) | payer MEDICAID, SELFPAY ==
[2017-12-23 16:08] VITALS: BP 106/78; PULSE 130; RESP 28; TEMP 37.3; O2SAT 94; BMI 32.7
--- NOTE | 2017-12-23 17:10 | RAD_ITS ---
STUDY: X-RAY CHEST REASON FOR EXAM: Male, 52 years old. Increased cough and shortness of breath for one week. Recent history of lung abscess drainage by chest tube. Discharge from the hospital 10 days ago. TECHNIQUE: 2 views COMPARISON: Prior portable radiograph of November 20, 2017, December 08, 2017 and a prior chest CT exam of December 07, 2017 FINDINGS: There is an air-fluid collection of the anterior right upper lung zone measuring approximately 12 x 8 x 10 cm with variable wall thickness. According to the shape of this, the collection is probably in the anterior right upper lobe with underlying major compressive atelectasis of the right middle lobe. There is probably some patchy small infiltrates in the posterior right lower lobe. Negative for dependent pleural effusion. The left lung is expanded and clear. Normal size heart. Normal mediastinum and mateo. Normal visualized pulmonary arteries. Normal visualized aortic arch and descending thoracic aorta. Normal visualized thoracic spine. Normal visualized ribs, clavicles, and shoulders. There is no demonstrated abnormality of the visualized soft tissue structures of the upper abdomen. RAD/Chest PA and Lateral IMPRESSION: Loculated air-fluid collection of the anterior right upper chest. The rounded configuration suggests this originates in the right upper lobe with major compressive atelectasis of the right middle lobe and patchy infiltrates and minor volume loss in the right lower lobe. Negative for dependent right pleural effusion. Potential recurrent abscess? Air within the collection suggests air producing organism versus patent bronchial communication. Electronically Signed: Jimena Corrigan MD at 17:44 EDT , Service support ,
[2017-12-23 17:14] VITALS: BP 102/70; PULSE 110; RESP 14; O2SAT 98
[2017-12-23 17:14] LABS: Absolute Lymphocyte Count 2.23 X10^3/ul (0.83-4.51); Absolute Neutrophil Count 19.4 X10^3/uL (2.0-7.7); Basophil# 0.13 X10^3/uL; Basophil% 0.5 % (0-1); Eosinophil# 0.19 X10^3/uL; Eosinophils% 0.8 % (0-5); Hematocrit 37.5 % (40-54); Hemoglobin 12.7 g/dl (13.0-16.5); Lymphocyte # 2.23 X10^3/ul (4.0); Mean Corp Hgb Conc 33.9 g/gl (32-36); Mean Corpuscular Hgb 33.9 pg (27.0-32.0); Mean Platelet Vol. 9.3 fl (6.2-12.0); Monocyte# 2.49 X10^3/uL; Monocyte% 10.1 % (0-10); Neutrophil # 19.43 X10^3/uL (2.7-7.7); Neutrophil % 78.4 % (47-70); Platelet Count 490 K/mm3 (150-450); RBC Distribution Width CV 12.8 % (11.6-14.6); RBC Distribution Width SD 45.8 fl (35.1-43.9); Red Blood Count 3.75 M/mm3 (4.6-6.2); White Blood Count 24.8 K/mm3 (4.4-11.0)
[2017-12-23] MEDS: 0.9% Normal Saline 1,000 ML 999 ML IV (17:15)
[2017-12-23 17:16] LABS: Differential Indicated SCAN CRITERIA MET; POSITIVE COUNT NO; POSITIVE DIFFERENTIAL YES; POSITIVE MORPHOLOGY NO
--- NOTE | 2017-12-23 17:23 | CT_ITS ---
STUDY: CT CHEST WITHOUT CONTRAST REASON FOR EXAM: Male, 52 years old. Recent PE and lung infection. RADIATION DOSAGE (If Supplied By Facility): CTDIvol = ( 17.96 ) mGy, DLP = ( 682.35 ) mGycm TECHNIQUE: Transaxial imaging was performed without the administration of intravenous contrast material. Individualized dose optimization techniques were used for this CT. COMPARISON: None. FINDINGS: There is a thin-walled cavitary lesion with air-fluid level of the right upper lobe measuring 9.0 x 6.4 x 9.6 cm, consistent with lung abscess. There is right upper lobe atelectasis/fibrosis. There are bilateral lower lobe infiltrates. There is no free pleural fluid. The heart size is within normal limits. There is no pericardial effusion. Mediastinal nodes are present measuring up to 1.2 cm in short axis. Hilar areas are difficult to assess on this noncontrast study. There is no obvious hilar mass or adenopathy. Normal unenhanced pulmonary arteries. Normal aorta arch and descending thoracic aorta. There are mild degenerative changes of the thoracolumbar spine. There is no demonstrated abnormality of the visualized upper abdomen. CT/Chest without Contrast IMPRESSION: 1. Thin-walled cavitary lesion with air-fluid level of the right upper lobe measuring 9.0 x 6.4 x 9.6 cm, consistent with lung abscess. 2. There is associated right upper lobe atelectasis/fibrosis. 3. There are bilateral lower lobe infiltrates. 4. No free pleural fluid is seen. 5. Mediastinal adenopathy. Nodes are present measuring up to 1.2 cm in short axis. Electronically Signed: Bean Ferrell MD at 18:16 EDT , Service support ,
[2017-12-23 17:26] LABS: Anion Gap 7 (5-15); BUN 8 mg/dL (7-18); Calcium,Total 9.4 mg/dL (8.5-10.1); Chloride 101 mmol/L (98-107); Creatinine, Serum 0.89 mg/dL (0.70-1.30); EST Glomerular Filtration Rate 95 mL/min (>60); Est Glom Filt Rate - Afr Amer 115 mL/min (>60); Estimated Creatinine Clearance 100.25 ml/min; Glucose 109 mg/dL (74-106); Potassium 3.7 mmol/L (3.5-5.1); Sodium Level 134 mmol/L (136-145)
[2017-12-23 17:48] LABS: Differential Comment SCANNED
[2017-12-23 18:23] VITALS: BP 128/77; PULSE 104; RESP 16; O2SAT 92
[2017-12-23] MEDS: Piperacil/Tazobactam 4.5 GM in NS100 MBP IV (18:41)
[2017-12-23 19:05] VITALS: BP 115/75; PULSE 102; RESP 14; O2SAT 99
--- NOTE | 2017-12-23 19:12 | ED.DCSUM_ITS ---
- ER Visit Summary Date of Service: 12/23/17 Chief Complaint: Chest pain and cough History of Present Illness: The patient is a [address] Chavez, Dr. Shah, and Dr. Gabriel. He was admitted to the hospital last month and found to have a right lung abscess. He was discharged 10 days ago on Augmentin for the next 4 weeks. He reports that he was doing well until approximately 1 week ago. Over that timeframe he has developed right-sided chest pain and cough again. Reports the pain is a stabbing pain Zeta 10 at worst and 2 out of 10 currently. Is worsened by coughing. It is relieved by Tylenol and ibuprofen. Patient does complain of subjective fever, chills, and sweats. He reports he has moderate shortness of breath. This is worsened with coughing or walking. There is no change with lying flat. Physical Examination: Vitals: Stable. Afebrile. General: Well-nourished and well-developed. Head: Normocephalic atraumatic. Neck: Supple, no lymphadenopathy. No JVD. Nontender. Cardiovascular: Regular rate and rhythm. No murmurs. Respiratory: No respiratory distress. Clear to auscultation bilaterally. Abdominal: Soft, nontender, nondistended, normal bowel sounds. No guarding, rebound, or peritoneal signs. Back: Nontender. Extremities: Nontender, no edema. Skin: Normal color, no rash. Neurologic: Alert and oriented ?3. Cranial nerves II through XII are intact. Normal strength and sensation. Psych: Normal affect. Test Results: Chest x-ray shows a large abscess on the right with an air-fluid level. CT chest shows a 9 x 6.4 x 9.6 cm right upper lobe abscess. CBC is more for white count 24.8 with 78 segmented neutrophils, 9 lymphocytes, 10 monocytes. H&H 12.7 37.5, platelets 490. Chem-7 more for sodium 134 glucose 109. Lactic acid is 1.0. Emergency Department Course and Treatment: Patient was given a dose of Zosyn IV and Hycodan p.o. He is resting comfortably. Treatment Plan: Patient was discussed with Dr. Shah. He reviewed the x-ray and feels the patient would benefit from transfer to a tertiary care center. Disposition: Transferred in improved condition. Impression: 1. Right lung abscess. 2. Coagulopathy on Eliquis. 3. History of PE. This note was generated with [employer] dictation software. It may contain incorrect words, spelling, and punctuation that were not noted in review of the chart prior to signing ED Disposition - Plan for ED Patient: Chief Complaint: Chest Pain Referrals: Carolyne Chavez MD [Primary Care Provider] -
[2017-12-23 20:13] VITALS: BP 120/70; BP 122/74; PULSE 100; PULSE 105; RESP 14; O2SAT 98
[2017-12-23 21:28] VITALS: BP 132/70; PULSE 101; RESP 14; O2SAT 98
== END 2017-12-23 21:44 | disposition short-term general hospital (02) ==
PROVIDERS: Emergency Provider Emergency Medicine; Family Provider Internal Medicine; PCP Internal Medicine
DX: J85.2 Abscess of lung without pneumonia (principal); D68.9 Coagulation defect, unspecified; Z86.711 Personal history of pulmonary embolism; F31.9 Bipolar disorder, unspecified
CPT/HCPCS: 71046; 71250; 80048; 83605; 85025; 87040; 96361; 96365; 96367; 99285; J7030; J7040

== ENCOUNTER 2018-01-31 13:33 | Emergency (ER) | payer MEDICAID, SELFPAY ==
[2018-01-31 13:34] VITALS: BP 118/75; PULSE 90; RESP 16; TEMP 36.8; O2SAT 97; BMI 30.9
--- NOTE | 2018-01-31 14:07 | ED.RN ---
SHORTS X3 SHIRTS X4 DEODORANT TOOTHBRUSH TOOTHPASTE HAIR GEL PANTS X1 3 KEYS ON RING WALLET BROWNS HAT TENNIS SHOES
[2018-01-31 14:30] LABS: Anion Gap 8 (5-15); BUN 8 mg/dL (7-18); BUN/Creat Ratio 8.3 RATIO (10-20); Calcium,Total 8.2 mg/dL (8.5-10.1); Chloride 110 mmol/L (98-107); Creatinine, Serum 0.96 mg/dL (0.70-1.30); EST Glomerular Filtration Rate 87 mL/min (>60); Est Glom Filt Rate - Afr Amer 105 mL/min (>60); Estimated Creatinine Clearance 92.94 ml/min; Glucose 123 mg/dL (74-106); Potassium 4.1 mmol/L (3.5-5.1); Sodium Level 144 mmol/L (136-145)
[2018-01-31 14:47] LABS: Absolute Lymphocyte Count 2.65 X10^3/ul (0.83-4.51); Absolute Neutrophil Count 1.7 X10^3/uL (2.0-7.7); Basophil# 0.13 X10^3/uL; Basophil% 2.7 % (0-1); Eosinophil# 0.26 X10^3/uL; Eosinophils% 5.3 % (0-5); Hematocrit 38.1 % (40-54); Hemoglobin 12.6 g/dl (13.0-16.5); Lymphocyte # 2.65 X10^3/ul (4.0); Lymphocyte % 54.1 % (19-41); Mean Corp Hgb Conc 33.1 g/gl (32-36); Mean Corpuscular Hgb 34.4 pg (27.0-32.0); Mean Corpuscular Volume 104.1 fL (80-94); Monocyte# 0.18 X10^3/uL; Monocyte% 3.7 % (0-10); Neutrophil # 1.67 X10^3/uL (2.7-7.7); Platelet Count 158 K/mm3 (150-450); RBC Distribution Width CV 17.4 % (11.6-14.6); RBC Distribution Width SD 65.3 fl (35.1-43.9); Red Blood Count 3.66 M/mm3 (4.6-6.2); White Blood Count 4.9 K/mm3 (4.4-11.0)
[2018-01-31 14:48] VITALS: RESP 16
[2018-01-31 14:48] LABS: Differential Indicated SCAN CRITERIA MET; POSITIVE COUNT NO; POSITIVE DIFFERENTIAL NO; POSITIVE MORPHOLOGY YES
[2018-01-31 14:49] LABS: Anisocytosis RARE; Polychromasia RARE
[2018-01-31 14:50] LABS: Stomatocyte 1+
[2018-01-31 15:00] VITALS: RESP 16
[2018-01-31 16:18] LABS: Amphetamine Urine VISTA NEGATIVE (<1000 ng/mL); Barbiturate Urine VISTA NEGATIVE (< 200 ng/mL); Benzodiazepine Urine VISTA NEGATIVE (< 200 ng/mL); Cocaine Urine VISTA NEGATIVE (< 300 ng/mL); Ecstacy Urine VISTA NEGATIVE (< 500 ng/mL); Methadone Urine VISTA NEGATIVE (< 300 ng/mL); PCP Urine VISTA NEGATIVE (< 25 ng/mL); THC Urine VISTA NEGATIVE (< 50 ng/mL); Vista UDS pH Range 6
[2018-01-31 20:00] VITALS: RESP 15
--- NOTE | 2018-01-31 20:29 | ED.RN ---
THIS NURSE IN THE ROOM TO SPEAK WITH PT. PT QUESTIONING WHY HE IS PINK SLIPPED AND WHY HE HAS TO WAIT UNTIL 2200 TO HAVE ALCOHOL REDRAWN. THIS NURSE EXPLAINED BOTH TO THE PT. PT VERBALIZED UNDERSTANDING
[2018-01-31 21:01] VITALS: BP 132/85; PULSE 82; RESP 16; O2SAT 98
[2018-01-31] MEDS: Propranolol 10 MG Tablet 20 MG PO (23:18)
[2018-01-31] MEDS: APIXABAN 5 MG TABLET PO (23:19)
[2018-01-31] MEDS: Lithium Carbonate 300mg Capsule 600 MG PO (23:19)
[2018-01-31] MEDS: traZODone 50 MG Tablet 150 MG PO (23:19)
[2018-01-31] MEDS: QUEtiapine 100 MG Tablet PO (23:19)
--- NOTE | 2018-01-31 23:19 | ED.RN ---
PT BLOOD ALCOHOL MISLABELED. D/T RESULTS PT NEEDS DRAWN AGAIN AT 0500
[2018-01-31] MEDS: Benztropine 2 MG Tablet 0.5 MG PO (23:20)
[2018-01-31 23:26] VITALS: BP 147/94; PULSE 83; RESP 16; O2SAT 97
[2018-02-01] VITALS (10 sets, daily range): BP systolic 123–151; BP diastolic 74–96; PULSE 76–93; RESP 14–18; O2SAT 98
[2018-02-01] MEDS: Venlafaxine XR 75 MG Capsule 225 MG PO (09:32)
[2018-02-01] MEDS: APIXABAN 5 MG TABLET PO (10:36)
[2018-02-01] MEDS: Famotidine 20 MG Tablet PO (10:36)
[2018-02-01] MEDS: Propranolol 10 MG Tablet 20 MG PO (10:37)
[2018-02-01] MEDS: Benztropine 2 MG Tablet 0.5 MG PO (10:38)
--- NOTE | 2018-02-14 15:25 | ED.DCSUM_ITS ---
- ER Visit Summary Date of Service: 02/14/18 Chief Complaint: Depression with suicidal ideation History of Present Illness: The patient is a 52 M who presents with depression and suicidal ideation for the past 1-2 weeks. He reports depression, change in eating, sleeping and appetite. He also reports decreased interest. He also reports anxiety. He states he has a history of bipolar affective disorder. He lives alone. He does admit to drinking daily. He states he is compliant with his medication. Review of systems is remarkable for depression, anxiety with suicidal thoughts and ideation. Review of systems is otherwise negative please read written note. Past medical history of GERD, pulmonary embolus and lung abscess Physical Examination: Vital signs are unremarkable. He is not febrile nor is he hypoxic. Head is atraumatic normocephalic. Pupils are equal round reactive. Extraocular muscles are intact. TMs are pearly white with landmarks noted. Nares patent with no drainage. Posterior pharynx without erythema or exudate. Uvula is midline. There is no dysphonia or dysphasia. Trachea is midline. There is no stridor with auscultation of the neck. Heart is regular without murmur, gallop or rub. S1 and S2 are normal. Lungs are clear to auscultation with good movement of air bilaterally. Abdomen soft nontender bowel sounds are present normal. There is no asymmetry, swelling, discoloration, leg vein distention, palpable cords or tenderness along the distribution of the deep venous system. Patient is alert and oriented ?3. Motor is 5 over 5. Sensory is intact. DTRs are symmetric with no clonus or Babinski sign. Cranial 2 through 12 are intact. Cerebellar testing is normal. Patient does admit to depression with suicidal thoughts. His insight and judgment are limited. He has future intense. His modified sad person score is 10. This would necessitate emergent hospitalization. Test Results: EKG revealed a normal sinus rhythm no acute ischemic changes. Mild anemia with an H&H 12.6 and 38.1. Glucose 123. Tox negative. Alcohol 295. Repeat tox was 91. Emergency Department Course and Treatment: Labs for medical screening to facilitate acceptance at psychiatric Hospital were obtained. Clinically patient is not intoxicated even though his alcohol level is 295. Treatment Plan: [facility] center was contacted for facilitation with placement of psychiatric facility since his modified sad person score is 10. Disposition: Transfer to psychiatric facility Impression: 1. Depression 2. Suicidal ideation 3. Alcoholism This note was generated with [employer] dictation software. It may contain incorrect words, spelling, and punctuation that were not noted in review of the chart prior to signing ED Disposition - Plan for ED Patient: Disposition: Psychiatric Hospital or Unit Chief Complaint: Suicidal Referrals: Carolyne Chavez MD [Primary Care Provider] -
== END 2018-02-01 13:51 ==
LOC: ED 14:05
PROVIDERS: Emergency Medicine; Emergency Provider Emergency Medicine; Family Provider Internal Medicine; PCP Internal Medicine
DX: F32.9 Major depressive disorder, single episode, unspecified (principal); R45.851 Suicidal ideations; F10.20 Alcohol dependence, uncomplicated; Y90.8 Blood alcohol level of 240 mg/100 ml or more; K21.9 Gastro-esophageal reflux disease without esophagitis; Z60.2 Problems related to living alone; Z86.711 Personal history of pulmonary embolism; F41.9 Anxiety disorder, unspecified
CPT/HCPCS: 80048; 80307; 80320; 85025; 99284; G0480

== ENCOUNTER 2018-06-05 11:02 | Emergency (ER) | payer MEDICAID, SELFPAY ==
[2018-06-05 11:03] VITALS: BP 159/85; PULSE 83; RESP 18; TEMP 36.6; O2SAT 99; BMI 31.5
--- NOTE | 2018-06-05 11:25 | EKG12_ITS ---
Test Reason : DIZZY Blood Pressure : / mmHG Vent. Rate : 077 BPM Atrial Rate : 077 BPM P-R Int : 186 ms QRS Dur : 100 ms QT Int : 404 ms P-R-T Axes : 056 010 026 degrees QTc Int : 457 ms Normal sinus rhythm Normal ECG Confirmed by DARRYL DOMINGUEZ, JEFFREY ([id number]), brands editor MARGUERITE STEPHENSON ([id number]) on 06/07/2018 1:56:54 PM Referred By: GUMARO Confirmed By:JEFFREY ANDREWS MD
--- NOTE | 2018-06-05 11:25 | RAD_ITS ---
STUDY: X-RAY CHEST REASON FOR EXAM: Male, 53 years old. Shortness of breath TECHNIQUE: Single AP portable view of the chest. COMPARISON: None. FINDINGS: Previously identified loculated air-fluid collection in the right upper lobe has resolved. Lungs are mildly hypoinflated with bibasilar atelectasis. Lungs are clear. There is no demonstrated pleural abnormality. Normal size heart. Normal mediastinum and mateo. Normal visualized pulmonary arteries. Normal visualized aortic arch and descending thoracic aorta. Normal visualized thoracic spine. Normal visualized ribs, clavicles, and shoulders. There is no demonstrated abnormality of the visualized soft tissue structures of the upper abdomen. RAD/Chest 1 View (Portable) IMPRESSION: No acute cardiopulmonary disease Electronically Signed: Jigar Jacome DO at 12:03 EST Tel , Service support ,
--- NOTE | 2018-06-05 11:27 | CT_ITS ---
STUDY: CT BRAIN WITHOUT CONTRAST REASON FOR EXAM: Male, 53 years old. Vertigo and paresthesias RADIATION DOSAGE (If Supplied By Facility): CTDIvol = ( 44.99 ) mGy, DLP = ( 914.22 ) mGycm TECHNIQUE: Transaxial CT imaging of the brain was performed without administration of intravenous contrast material. Individualized dose optimization techniques were used for this CT. COMPARISON: None. FINDINGS: Normal soft tissue structures. Normal calvarium. Normal size ventricles and extra-axial spaces for the patient's age. Normal white matter tracts of the cerebral hemispheres. Normal basal ganglia and thalami. Normal brainstem. Normal cerebellum. Posterior fossa arachnoid cyst versus naty cisterna magna. There is no intracranial hemorrhage. There are no findings of an acute ischemic infarction. Normal visualized paranasal sinuses. CT/Brain/Head without Contrast IMPRESSION: No acute findings. Remainder as above. Electronically Signed: Jigar Jacome DO at 12:32 EST Tel , Service support ,
[2018-06-05 11:40] LABS: Absolute Lymphocyte Count 1.67 X10^3/ul (0.83-4.51); Absolute Neutrophil Count 6.6 X10^3/uL (2.0-7.7); Basophil# 0.07 X10^3/uL; Basophil% 0.7 % (0-1); Eosinophil# 0.23 X10^3/uL; Eosinophils% 2.4 % (0-5); Hematocrit 40.4 % (40-54); Hemoglobin 13.9 g/dl (13.0-16.5); Lymphocyte # 1.67 X10^3/ul (4.0); Lymphocyte % 17.5 % (19-41); Mean Corp Hgb Conc 34.4 g/gl (32-36); Mean Corpuscular Hgb 35.6 pg (27.0-32.0); Mean Corpuscular Volume 103.6 fL (80-94); Mean Platelet Vol. 9.5 fl (6.2-12.0); Monocyte% 9.4 % (0-10); Neutrophil # 6.56 X10^3/uL (2.7-7.7); Neutrophil % 68.8 % (47-70); Platelet Count 278 K/mm3 (150-450); RBC Distribution Width CV 14.9 % (11.6-14.6); RBC Distribution Width SD 56.6 fl (35.1-43.9); White Blood Count 9.5 K/mm3 (4.4-11.0)
[2018-06-05 11:42] LABS: POSITIVE COUNT NO; POSITIVE DIFFERENTIAL NO; POSITIVE MORPHOLOGY NO
[2018-06-05 11:44] VITALS: BP 134/94; PULSE 76; RESP 10; O2SAT 99
[2018-06-05 11:52] LABS: Anion Gap 10 (5-15); BUN 8 mg/dL (7-18); BUN/Creat Ratio 7.1 RATIO (10-20); Calcium,Total 9.3 mg/dL (8.5-10.1); Chloride 106 mmol/L (98-107); Creatinine, Serum 1.12 mg/dL (0.70-1.30); EST Glomerular Filtration Rate 73 mL/min (>60); Est Glom Filt Rate - Afr Amer 88 mL/min (>60); Estimated Creatinine Clearance 78.76 ml/min; Glucose 118 mg/dL (74-106); Potassium 3.6 mmol/L (3.5-5.1); Sodium Level 142 mmol/L (136-145)
[2018-06-05] MEDS: LORazepam 2 MG/ML Syringe 1 MG IV (12:02)
--- NOTE | 2018-06-05 13:00 | ED.DCSUM_ITS ---
- ER Visit Summary Date of Service: 06/05/18 Chief Complaint: Vertigo History of Present Illness: The patient is a [address] Chavez. He reports that for the past 4-5 days he has an episode of vertigo each morning approximately 10:00 that lasts approximately an hour. It is lasted longer than usual today. States that he is diaphoretic with it once. He denies any nausea. Does report he is got ringing in his ears. He reports that he has numbness in his arms bilaterally from the elbows down. He also he reports that he has weakness in his arms bilaterally. Physical Examination: Vitals: Stable. Afebrile. General: Well-nourished and well-developed. Head: Normocephalic atraumatic. Neck: Supple, no lymphadenopathy. No JVD. Nontender. Cardiovascular: Regular rate and rhythm. No murmurs. Respiratory: No respiratory distress. Clear to auscultation bilaterally. Abdominal: Soft, nontender, nondistended, normal bowel sounds. No guarding, rebound, or peritoneal signs. Back: Nontender. Extremities: Nontender, no edema. Skin: Normal color, no rash. Neurologic: Alert and oriented ?3. Cranial nerves II through XII are intact. Normal strength and sensation. Psych: Depressed rmal affect. Test Results: CT brain shows no acute disease. Chest x-ray shows no acute disease. CBC is more for lymphocytes 17.5. Chem-7 is more for glucose of 118. [place] level is normal. Emergency Department Course and Treatment: Patient was treated with a dose of Ativan on repeat exam reports his symptoms have completely resolved. Treatment Plan: Patient be discharged with instructions to follow-up his primary care physician 1-2 days if not improving. He will be given a prescription for Antivert. Return to the emergency department for any worsening symptoms. Disposition: To home in improved and stable condition. Impression: 1. Vertigo, peripheral. This note was generated with [employer] software. It may contain incorrect words, spelling, and punctuation that were not noted in review of the chart prior to signing ED Disposition - Plan for ED Patient: Disposition: Home or Assisted Living Chief Complaint: Dizziness Instructions: ED Dizziness [facility] Prescriptions: Meclizine HCl [Antivert] 25 mg PO 4X/DAY PRN PRN #20 tablet PRN Reason: Dizziness Apixaban [Eliquis] 5 mg PO BID #60 tablet Referrals: Carolyne Chavez MD [Primary Care Provider] - 1-2 Days if not improving
--- NOTE | 2018-06-05 13:19 | ED.RN ---
lithium level sent. confirmed with lab that blood sample is in lab
[2018-06-05] MEDS: APIXABAN 5 MG TABLET PO (13:34)
[2018-06-05 13:43] VITALS: BP 139/98; PULSE 78; RESP 16; O2SAT 97
== END 2018-06-05 13:45 | disposition home or self-care (01) ==
PROVIDERS: Emergency Provider Emergency Medicine; Family Provider Internal Medicine; PCP Internal Medicine
DX: H81.399 Other peripheral vertigo, unspecified ear (principal); I10 Essential (primary) hypertension; E78.00 Pure hypercholesterolemia, unspecified; K21.9 Gastro-esophageal reflux disease without esophagitis; Z86.711 Personal history of pulmonary embolism; F31.9 Bipolar disorder, unspecified
CPT/HCPCS: 70450; 71045; 80048; 80178; 85025; 93005; 96374; 99285; J7040; A4216

== ENCOUNTER 2020-08-18 05:05 | Day surgery (SDC) | payer MEDICARE, MEDICAID, SELFPAY ==
[2020-08-14 07:33] VITALS: BMI 36.3
[2020-08-18] VITALS (7 sets, daily range): BP systolic 115–146; BP diastolic 73–85; PULSE 75–82; RESP 16; TEMP 36.6–37.2; O2SAT 95–98; BMI 35.7
--- NOTE | 2020-08-18 | COLBX_PTH ---
PATIENT: SORAYA BOWSER LOC: EN U#:[id number] AGE/SX: 55/M ROOM: RE08/18/[address]: Dr. Sathish Tariq MD : 1965 BED: DIS: 08/18/2020 SPEC #: [id number] RECD: 08/18/20 11:25 STATUS: YECENIA ANAIS #: [id number] DINO: 08/18/20 00:[address]: Sathish Tariq DEPT: SURGICAL PATHOLOGY RECD BY: Ranjit Mosqueda ENTERED: 08/18/20 11:25 SP TYPE: COLON BX OTHR DR: Dr. Sam Tariq III, MD Tissues: COLON BIOPSY Procedures: Surgery Specimen Level IV HEADER OPERATION: Colonoscopy (MAC) PRE-OP DIAGNOSIS: Diarrhea, rectal bleeding TISSUE SUBMITTED: Random colonic biopsies MICROSCOPIC DIAGNOSIS Colon, random biopsy: No pathologic change. AM:valerie 08/19/2020 MICROSCOPIC DESCRIPTION Slides are reviewed. GROSS DESCRIPTION Received in fixative is one container labeled with the patient's name and designated random colonic biopsy. The specimen consists of multiple irregular fragments of light teague soft tissue that in aggregate measure 2 x 1 x 0.1 cm. The specimen is totally submitted in one cassette. / SJ:valerie 08/18/20 TC:5 CPT: 23145
--- NOTE | 2020-08-18 05:34 | HP.PCM_ITS ---
Problem List (1) Diarrhea Status: Acute Qualifiers: (2) Rectal bleeding Status: Acute History and Physical Date of Admission: 08/18/20 Intake Visit Reasons: CSCOPE, BOWEL CHANGES, RECTAL BLEEDING Chief Complaint: diarrhea, blood w BM Market Analyst Required: No Is patient in pain?: No Allergies No Known Allergies Allergy (Verified 08/14/20 07:35) Medications Propranolol HCl [Inderal (Beta Bijan)] 20 mg PO BID 12/07/17 [History Confirmed 08/14/20] Acetaminophen [Tylenol Extra Strength] 1,000 mg PO Q6H PRN PRN 12/23/17 [History Confirmed 08/14/20] Ibuprofen 600 mg PO Q8H PRN PRN 12/23/17 [History Confirmed 08/14/20] amlodipine 10 mg tablet 10 mg PO DAILY 08/14/20 [History Confirmed 08/14/20] brexpiprazole 2 mg tablet 2 mg PO DAILY 08/14/20 [History Confirmed 08/14/20] divalproex 500 mg tablet,extended release 24 hr 500 mg PO QHS tablet 08/14/20 [History Confirmed 08/14/20] levothyroxine 50 mcg capsule 50 mcg PO DAILY 08/14/20 [History Confirmed 08/14/20] omeprazole 40 mg capsule,delayed release 40 mg PO DAILY 08/14/20 [History Confirmed 08/14/20] propranolol 20 mg tablet 20 mg PO BID 08/14/20 [History Confirmed 08/14/20] quetiapine 50 mg tablet 50 mg PO DAILY PRN 08/14/20 [History Confirmed 08/14/20] trihexyphenidyl 2 mg tablet 2 mg PO BID tablet 08/14/20 [History Confirmed 08/14/20] venlafaxine 75 mg capsule,extended release 24 hr 75 mg PO DAILY 08/14/20 [History Confirmed 08/14/20] [facility] Medical History (Updated 08/14/20 @ 07:[address] Sathish Tariq MD) Diarrhea (Acute) Rectal bleeding (Acute) Uncontrolled hypertension (Chronic) Lung abscess (Resolved) Bipolar disorder (Chronic) GERD (gastroesophageal reflux disease) (Chronic) Sepsis (Resolved) Bilateral pulmonary embolism (Resolved) Abnormal LFTs (Chronic) Anxiety and depression (Acute) History of hemorrhoids (Chronic) history of shoulder pain (Chronic) Surgical History (Updated 08/14/20 @ 07:33 by Nidia Barrera) History of colonoscopy (Acute) History of surgery on wrist (Acute) Family History (Updated 08/14/20 @ 07:33 by Nidia Barrera) Mother Hypertension Father Cancer unsure type Social History (Updated 08/14/20 @ 07:[address] Sathish Tariq MD) Smoking Status: Never smoker alcohol intake: current alcohol intake frequency: a few times a week HPI HPI HPI: SORAYA BOWSER is a 55 M who presents to the office today for school consultation regarding change of bowel habits. The patient is referred by primary care physician Dr. Sam Tariq, III and a written copy my surgical consult recommendations will return to him. 55-year-old gentleman. Remotely at age 35 because of rectal bleeding he had a colonoscopy. He states there were no acute findings at that time. More recently over the past several months he has had an acute change of bowel habits. Stools are quite loose mushy watery and not formed. For 2 months he has had intermittent rectal bleeding. He has tried to change his diet. Is try to add fiber. He has not had weight loss but actually has had weight gain over the past several months. This has been difficult with the COVID-19 pandemic. 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 He has been diagnosed as bipolar. No family history of colon polyps or colon cancer of which he is aware. 2018 it sounds like he had a lung abscess and a pulmonary embolism and he was an anticoagulation for 6 months. He states that he is not clear as the etiology of that onset. HPI HPI HPI: SORAYA BOWSER is a 55 M who presents to the office today for ROS General General: No weight change, appetite, fatigue, colon cancer, breast cancer or weakness HEENT HEENT: No difficulty swallowing, eye injury, eye surgery, swollen glands or hoarseness Endo Endocrine: Yes thyroid disease; no diabetes mellitus, thyroid cancer, Hair loss, heat intolerance or cold intolerance Musc Musculoskeletal: No back problems, arthritis, rheumatoid arthritis, gout or joint pain Cardio Cardiovascular: Yes high blood pressure; no murmur, pacemaker, heart disease, atrial fibrillation, heart attack, heart stent, palpitations, shortness of breat with exertion or chest pain Psych Psychiatric: Yes depression and anxiety; no hearing voices Resp Respiratory: No shortness of breath, No sleep apnea, No cough, No COPD, No asthma, No emphysema, No wheezing Gastro Gastrointestinal: No abdominal pain, No nausea or vomiting, Yes diarrhea, No constipation, Yes blood in stool, No acid reflux, No hemorrhoids, No ulcers, No gallbladder problem, No black,tarry stools David Hematologic: No blood thinners, No blood disorders, No bleeding, No anemia, No blood clots Neuro Neurologic: No weakness Exam Const General: cooperative, comfortable, no acute distress Nutritional Appearance: overweight Orientation: alert, awake HENMT Head: normal to inspection Eyes General: appearance normal, both eyes and all related structures Resp Effort & Inspection: normal respiratory effort Auscultation: clear to auscultation bilaterally Cardio Rate: regular rate Heart Sounds: no murmurs GI Palpation: soft, no hepatosplenomegaly Auscultation: normal bowel sounds Neuro General: alert Extrem General: no calf tenderness Psych Affect: normal affect Assessment & Plan Problems 1. Rectal bleeding K62.5 2. Diarrhea, unspecified type R19.7 Plan Change in bowel habits with diarrhea looser stools sometimes very watery as well as intermittent rectal bleeding. Patient does have a history of alcoholism. I recommend to him a colonoscopy with possible biopsy or polypectomy as indicated. He is aware of technique, benefit, risk, alternatives. Reviewing laboratory obtained from the [facility] on August 01, 2020 reveals a BUN of 12 and a creatinine of 1.02. Albumin was 4.4 with a total bilirubin of 0.4 alkaline phosphatase 67 ALT 51 AST of 63. Ammonia level was 39. His hematocrit was 44.3. TSH was 2.3. Hemoglobin was 16.3. MCV was elevated at 102.3 and MCH elevated at 37.6 and MCHC elevated to 36.8. He has had an opportunity to ask and have questions answered. We will schedule procedure at his discretion. We will expedite his care. Sathish Tariq M.D., F.A.C.S. Coding Level of Care Code 42614 Diagnoses Rectal bleeding K62.5 Diarrhea, unspecified type R19.7 ??Diarrhea type: unspecified type I have re-examined the patient. There are no clinical changes since date of exam. Procedure Criteria Procedure Type: Elective COVID Risk Discussion: The surgeon/proceduralist and patient have discussed in detail the risk of exposure to and/or potential harm posed by the COVID-19 virus with having a surgery/procedure at this time versus the risk of delaying the surgery/procedure. It is not possible to know either the risk of delaying the surgery or procedure or chance of getting an infection with perfect accuracy, but a joint decision was made between the patient and the surgeon/proceduralist to proceed at this time with the scheduled surgery/procedure as indicated on the consent form.
[2020-08-18] MEDS: Lactated Ringers 1,000 ML 100 ML IV (06:01)
--- NOTE | 2020-08-18 07:02 | OP.CCLET_ITS ---
08/18/2020 Sam Tariq [address] [place] [address] Re : Colonoscopy procedure for [facility] Dear Dr. Tariq This procedure was performed on Tuesday, August 18, 2020. My impressions and recommendations are as follows: Impressions : - Non-thrombosed internal hemorrhoids and internal hemorrhoids that prolapse with straining, but require manual replacement into the anal canal (Grade III) found on digital rectal exam. - Diverticulosis in the entire examined colon. - The examination was otherwise normal. - Biopsies were taken with a cold forceps from the entire colon for evaluation of microscopic colitis. Recommendations : - Discharge patient to home. - Resume previous diet. - Continue present medications. - Use fiber, for example Citrucel, Fibercon, Konsyl or Metamucil. - Repeat colonoscopy in 10 years for screening purposes. - Telephone my office for pathology results in 1 week. Suspect hemorrhoids as source of rectal bleeding Internal hemorrhoids. Check for possible liver disease. Recommend fiber supplementation Random biopsies pending My findings are described in the full procedure note, which is enclosed. If I can be of further assistance, please feel free to contact me at Doctor phone number(s): Work: . Sincerely, Sathish Tariq MD 08/18/2020 7:01:53 AM This report has been signed electronically.
--- NOTE | 2020-08-18 07:02 | OP.COLON_ITS ---
Patient Name: Donaldo Ni Procedure Date: 08/18/2020 6:13 AM Date of : 1965 Age: 55 Procedure: Colonoscopy Indications: Rectal bleeding Providers: Sathish Tariq MD Referring MD: Sam Tariq Iii Medicines: See the Anesthesia note for documentation of the administered medications Patient Profile: Last Colonoscopy: none. The patient's first colonoscopy is today. Complications: No immediate complications. Procedure: Pre-Anesthesia Assessment: - Prior to the procedure, a History and Physical was performed, and patient medications and allergies were reviewed. The patient's tolerance of previous anesthesia was also reviewed. The risks and benefits of the procedure and the sedation options and risks were discussed with the patient. All questions were answered, and informed consent was obtained. Prior Anticoagulants: The patient has taken no previous anticoagulant or antiplatelet agents. ASA Grade Assessment: II - A patient with mild systemic disease. After reviewing the risks and benefits, the patient was deemed in satisfactory condition to undergo the procedure. After I obtained informed consent, the scope was passed under direct vision. Throughout the procedure, the patient's blood pressure, pulse, and oxygen saturations were monitored continuously. The adult colonoscope was introduced through the anus and advanced to the cecum, identified by appendiceal orifice and ileocecal valve. The colonoscopy was performed without difficulty. The patient tolerated the procedure well. The quality of the bowel preparation was adequate to identify polyps. The ileocecal valve and the appendiceal orifice were photographed. Scope In: 6:30:00 AM Scope Withdrawal Time 0 hours 11 minutes 18 seconds Scope Out: 6:54:17 AM Total Procedure Duration Time 0 hours 24 minutes 17 seconds Findings: The digital rectal exam findings include non-thrombosed internal hemorrhoids and internal hemorrhoids that prolapse with straining, but require manual replacement into the anal canal (Grade III). Pertinent negatives include normal prostate (size, shape, and consistency). Scattered diverticula were found in the entire colon. Biopsies for histology were taken with a cold forceps from the entire colon for evaluation of microscopic colitis. The exam was otherwise without abnormality. Impression: - Non-thrombosed internal hemorrhoids and internal hemorrhoids that prolapse with straining, but require manual replacement into the anal canal (Grade III) found on digital rectal exam. - Diverticulosis in the entire examined colon. - The examination was otherwise normal. - Biopsies were taken with a cold forceps from the entire colon for evaluation of microscopic colitis. Recommendation: - Discharge patient to home. - Resume previous diet. - Continue present medications. - Use fiber, for example Citrucel, Fibercon, Konsyl or Metamucil. - Repeat colonoscopy in 10 years for screening purposes. - Telephone my office for pathology results in 1 week. Suspect hemorrhoids as source of rectal bleeding Internal hemorrhoids. Check for possible liver disease. Recommend fiber supplementation Random biopsies pending Procedure Code(s): --- Professional --- 85272, Colonoscopy, flexible; with biopsy, single or multiple Diagnosis Code(s): --- Professional --- K64.2, Third degree hemorrhoids K62.5, Hemorrhage of anus and rectum K57.30, Diverticulosis of large intestine without perforation or abscess without bleeding CPT copyright 2017 [employer]. All rights reserved. The codes documented in this report are preliminary and upon meat hostess review may be revised to meet current compliance requirements. Sathish Tariq MD 08/18/2020 7:01:53 AM This report has been signed electronically. Number of Addenda: 0 Note Initiated On: 08/18/2020 6:13 AM
== END 2020-08-18 07:35 | disposition home or self-care (01) ==
LOC: EN 05:05 → AC 05:07
PROVIDERS: PCP Family Medicine; Referring Provider Family Medicine; Visit Provider Surgery
PROC: 0DJD8ZZ Inspection of Lower Intestinal Tract, Via Natural or Artificial Opening Endoscopic (ICD-10-PCS; CPT 45378; principal; 2020-08-18 06:25)
DX: K62.5 Hemorrhage of anus and rectum (principal); K64.2 Third degree hemorrhoids; K57.30 Diverticulosis of large intestine without perforation or abscess without bleeding; R19.7 Diarrhea, unspecified; I10 Essential (primary) hypertension; K21.9 Gastro-esophageal reflux disease without esophagitis; F31.9 Bipolar disorder, unspecified; Z86.711 Personal history of pulmonary embolism
CPT/HCPCS: 45380; 87426; 88305; C9803; J7120; J2405

== ENCOUNTER 2023-12-26 15:22 | Observation (INO) | payer MEDICARE, MEDICAID, SELFPAY ==
[2023-12-26] VITALS (18 sets, daily range): BP systolic 108–202; BP diastolic 56–186; PULSE 85–121; RESP 12–24; TEMP 36.6–36.8; O2SAT 94–99; BMI 37.0; BMI 36.4
--- NOTE | 2023-12-26 15:39 | EKG12_ITS ---
Test Reason : syncope Blood Pressure : / mmHG Vent. Rate : 097 BPM Atrial Rate : 097 BPM P-R Int : 172 ms QRS Dur : 092 ms QT Int : 358 ms P-R-T Axes : 041 -06 027 degrees QTc Int : 454 ms Normal sinus rhythm Normal ECG Confirmed by Malvin Mercedes ([id number]), pictures editor DENG SMITH ([id number]) on 12/27/2023 2:08:20 PM Referred By: Confirmed By:Malvin Mercedes
[2023-12-26 15:52] LABS: Absolute Lymphocyte Count 1.23 X10^3/uL (0.83-4.51); Absolute Neutrophil Count 6.4 X10^3/uL (2.0-7.7); Basophil# 0.03 X10^3/uL; Basophil% 0.3 % (0-1); Eosinophil# 0.02 X10^3/uL; Eosinophils% 0.2 % (0-5); Hematocrit 39.9 % (40-54); Hemoglobin 14.2 g/dL (13.0-16.5); Lymphocyte # 1.23 X10^3/ul (0.83-4.51); Lymphocyte % 14.1 % (19-41); Mean Corp Hgb Conc 35.6 g/dL (32-36); Mean Corpuscular Hgb 35.1 pg (27.0-32.0); Mean Corpuscular Volume 98.5 fL (80-94); Mean Platelet Vol. 10.5 fl (6.2-12.0); Monocyte# 1.03 X10^3/uL; Monocyte% 11.8 % (0-10); NRBC Flagged by Analyzer 0 % (0-5); Neutrophil # 6.37 X10^3/uL (2.7-7.7); Neutrophil % 73.3 % (47-70); Platelet Count 112 K/mm3 (150-450); RBC Distribution Width SD 46.5 fl (35.1-43.9); Red Blood Count 4.05 M/mm3 (4.6-6.2); White Blood Count 8.7 K/mm3 (4.4-11.0)
--- NOTE | 2023-12-26 15:54 | EX.ED.DYSGE1 ---
HPI History of Present Illness Chief Complaint: Syncope Detail of Chief Complaint: 6 syncopal/near syncopal episodes over the last 2 weeks Informant: patient Onset/Context/Timing Onset: Yesterday Context: Sudden Onset Timing: Intermittent Quality: Patient gets lightheaded when he rises from sitting position and passes out Location: Home Current Severity: Presently patient is supine in examination bed and has no symptoms Maximum Severity: All 6 episodes occurred while patient was rising from a sitting position Worsened by: Nothing Relieved by: Nothing Associated Symptoms Associated Symptoms: complains of head pain and buttocks pain Narrative Narrative: Patient is a 58-year-old male. He saw his primary care doctor. His primary care doctor discontinued his amlodipine and lisinopril. Patient denies black or maroon-colored stool. Patient states 2 to 3 days ago he had dark-colored emesis. This was not followed or preceded by a syncopal episode. He is on no anticoagulant. He denies bruising easily. Denies blood in his urine. Denies bleeding of his gums. Lasix also was yesterday. All of the episodes occurred when he charlie from a sitting position to a standing position. There is no history of diabetes or autonomic dysfunction. Prior similar symptoms: No Recent Illness/Hospitalization: No [facility] Medical History Diarrhea Rectal bleeding Anxiety and depression Uncontrolled hypertension history of shoulder pain History of hemorrhoids Abnormal LFTs Bilateral pulmonary embolism Sepsis GERD (gastroesophageal reflux disease) Bipolar disorder Lung abscess Home Medications ?Medication ?Instructions ?Recorded ?Last Taken ?Type acetaminophen 500 mg tablet 1,000 mg PO Q6H PRN PRN Pain 12/23/17 01/31/18 History ibuprofen 200 mg tablet 600 mg PO Q8H PRN PRN Pain 12/23/17 01/31/18 History amlodipine 10 mg tablet 10 mg PO DAILY 08/14/20 Unknown History brexpiprazole 2 mg tablet (Rexulti) 2 mg PO DAILY 08/14/20 Unknown History divalproex 500 mg tablet,extended 500 mg PO QHS 08/14/20 Unknown History release 24 hr (Depakote ER) levothyroxine 50 mcg capsule 50 mcg PO DAILY 08/14/20 Unknown History omeprazole 40 mg capsule,delayed 40 mg PO DAILY 08/14/20 Unknown History release propranolol 20 mg tablet 20 mg PO BID 08/14/20 Unknown History quetiapine 50 mg tablet (Seroquel) 50 - 100 mg PO DAILY PRN Sleep 08/14/20 Unknown History trihexyphenidyl 2 mg tablet 2 mg PO BID 08/14/20 Unknown History venlafaxine 75 mg capsule,extended 75 mg PO DAILY 08/14/20 Unknown History release 24 hr (Effexor XR) Allergy/AdvReac Type Severity Reaction Status Date / Time No Known Allergies Allergy Verified 12/26/23 15:24 Family History Mother Hypertension Father Cancer unsure type Surgical History History of colonoscopy History of surgery on wrist Social History Smoking Status: Never smoker alcohol intake: current alcohol intake frequency: a few times a week ROS ROS ED Constitutional Constitutional ED: Denies chills, fever(s), subjective, sweats or weight loss Eyes Eyes: Denies blurry vision, change in vision or diplopia ENT ENT ED: Denies ear pain, rhinorrhea or sore throat Cardiovascular Cardiovascular: Denies chest pain, orthopnea, palpitations or paroxysmal nocturnal dyspnea Respiratory/Chest Respiratory/Chest: Denies cough, dyspnea, dyspnea on exertion, orthopnea or paroxysmal nocturnal dyspnea Gastrointestinal Gastrointestinal: Reports vomiting; Denies abdominal pain, constipation, diarrhea, melena or nausea Genitourinary Genitourinary ED: Denies dysuria, hematuria or urinary frequency Musculoskeletal Musculoskeletal: Reports other Details: Buttocks pain due to fall yesterday ; Denies arthralgias, back pain, myalgias or neck pain Integumentary Reports other Details: Patient has occipital laceration that is 3.5 cm. This was not sutured. Neurologic Neurologic: Denies headache(s), paresthesias or weakness Psychiatric Psychiatric: Denies anxiety or depression Endocrine Endocrinology: Denies cold intolerance or heat intolerance Hematologic/Lymphatic Hematologic/Lymphatic: Reports systems reviewed and no addt'l complaints, except as documented EXAM Physical Exam Const Vital Signs: 12/26/23 15:24 12/26/23 17:23 Temperature 98.1 F Temperature Source Oral Pulse Rate 93 85 Respiratory Rate 18 16 Blood Pressure 113/62 127/72 H Blood Pressure Mean 79 90 Pulse Ox 98 98 Oxygen Delivery Method Room Air Room Air Positive well nourished and well developed General Appearance ED: well developed and NAD; Negative for cyanotic, diaphoretic or pallor HEENT Reports moist mucous membranes HEENT Narrative: Patient's laceration occiput. Impression. There is no clinical findings of basilar skull fracture. There is no evidence of trauma to the ears. There is no trauma to the nose and there is no septal deviation hematoma. There is no dental trauma. Eyes PERRL and EOMs intact bilaterally General Eye ED: Negative for pale conjunctiva or scleral icterus Neck no lymphadenopathy, supple and no JVD Neck Narrative: There is no posterior midline pain to palpation. Chest Wall inspection of chest normal and palpation of chest normal Resp normal respiratory effort and clear to auscultation bilaterally Cardio regular rate, regular rhythm, S1 normal heart sound, S2 normal heart sound and no murmurs GI normal to inspection, nondistended, normoactive bowel sounds, non-tender, non-distended and no masses; Negative for hepatosplenomegaly Back/Spine no CVA tenderness Extremity Negative for normal to inspection Extremity Narrative: Patient has a contusion over the left patella. The patellas not blottable. He has full active range of motion. There is no effusion. General Extremety ED: Negative for edema or tenderness General Extremity: Negative for edema Neuro oriented x3, CN's II-XII intact bilaterally and no sensory deficits noted Neuro Narrative: GCS is 15. Sensorium / Orientation: alert Motor Exam: strength 5/5 throughout Psych mental status grossly normal Skin no rashes or lesions noted, No no wounds and skin turgor normal General Skin Exam: elasticity normal; Negative for jaundice or pallor Trauma: abrasion Wounds: wounds noted MDM MDM MDM Narrative Medical decision making narrative: All events occurred when patient had change in position from sitting sign. Will obtain orthostatic vitals. EKG was obtained. CBC was obtained assess H&H and BMP was obtained to assess BUN to creatinine ratio. If this is elevated since he reported dark emesis even though he denies black or maroon stool a couple days ago will perform rectal and possibly have nurse insert NG to assess for GI bleed. Lab Data Attestation: I reviewed the patient's lab results. Lab results narrative: H&H is 14.2 and 39.9. White count is normal. Differential is unremarkable. BUN and creatinine are 45 and 3.03. Last BUN and creatinine were normal. Priors were all normal. Glucose elevated 112 with a normal CO2 anion gap. Labs: Laboratory Results - last 24 hr 12/26/23 15:45 WBC 8.7 RBC 4.05 L Hgb 14.2 Hct 39.9 L MCV 98.5 H MCH 35.1 H MCHC 35.6 RDW Std Deviation 46.5 H RDW Coeff of Shawn 13.0 Plt Count 112 L MPV 10.5 Immature Gran % (Auto) 0.300 Neut % (Auto) 73.3 H Lymph % (Auto) 14.1 L [place] % (Auto) 11.8 H Eos % (Auto) 0.2 Baso % (Auto) 0.3 Absolute Neuts (auto) 6.4 Absolute Lymphs (auto) 1.23 Nucleated RBC % 0 Sodium 129 L Potassium 4.2 Chloride 93 L Carbon Dioxide 21.0 Anion Gap 15 BUN 45 H Creatinine 3.03 H Estim Creat Clear Calc 34.08 Est GFR (MDRD) Af Amer 27 L Est GFR (MDRD) Non-Af 23 L BUN/Creatinine Ratio 14.9 Glucose 112 H Calcium 8.8 Management Discussion w/another healthcare provider: Hospitalist (Discussed case with hospitalist. Patient's most recent creatinine was 3+ years ago. Observation PCU for syncope and collapse) Treatment and Re-Evaluation :: Orthostatic vital signs were negative. Patient vomited 3 days ago and has not vomited in the past 48 hours. The nausea and vomiting occurred prior to his most recent fall, yesterday and prior to head contusion with laceration. Discharge Plan Dx/Rx/DC Orders Clinical Impression: Syncope and collapse, Nausea and vomiting, GERD (gastroesophageal reflux disease), TREMAINE (acute kidney injury), Laceration of occipital scalp, Abrasion, left knee, initial encounter Disposition Disposition: Acute Care Hospital [facility]
[2023-12-26 16:11] LABS: Anion Gap 15 (5-15); BUN 45 mg/dL (7-18); BUN/Creat Ratio 14.9 RATIO (10-20); Calcium,Total 8.8 mg/dL (8.5-10.1); Chloride 93 mmol/L (98-107); Creatinine, Serum 3.03 mg/dL (0.70-1.30); EST Glomerular Filtration Rate 23 mL/min (>60); Est Glom Filt Rate - Afr Amer 27 mL/min (>60); Estimated Creatinine Clearance 34.08 ml/min; Glucose 112 mg/dL (74-106); Potassium 4.2 mmol/L (3.5-5.1); Sodium Level 129 mmol/L (136-145)
[2023-12-26] MEDS: 0.9% Normal Saline (1000mL) 1,000 ML 1000 ML IV (16:42)
--- NOTE | 2023-12-26 19:06 | HP.PCM.HOS_ITS ---
HPI - General General Date of Admission: 12/26/23 Date of Service: 12/26/23 Chief Complaint: Syncope HPI Narrative SORAYA BOWSER, is a 58 M who presents to the emergency room at [facility] for evaluation of syncope which she has had over the last month. He states his family physician decreased some of his blood pressure medications, he states that when he stands up suddenly from a seated position he gets lightheaded and feels as if he is going to faint and he has indeed had 6 syncopal episodes. Patient states these episodes were not worked up by his family physician, he was told to go to the emergency room for evaluation. Examination the ER did not show the patient to be orthostatic, his blood pressure supine was 127/72, sitting was 154/87, and standing was 146/72. Patient told me that he was dizzy during these maneuvers in the emergency room. Labs were obtained on the patient, CBC was unremarkable, chemistry profile was remarkable for a sodium of 129, chloride of 93, creatinine of 3.03 and BUN of 45. Last creatinine that we have in our medical system here is from 2019-it was 1.12. Patient is unsure whether he has had his creatinine drawn recently but he stated last fall he had lab work done through the [facility]. I was not able to locate his chart to review his lab work. Patient will be placed in observation status on PCU, he will be monitored on telemetry, I will obtain an echocardiogram on the patient, he may need an outpatient Holter monitor to rule out any arrhythmias. Patient will remain on his current medications during this admission. [facility] Medical History Diarrhea Rectal bleeding Anxiety and depression Uncontrolled hypertension history of shoulder pain History of hemorrhoids Abnormal LFTs Bilateral pulmonary embolism Sepsis GERD (gastroesophageal reflux disease) Bipolar disorder Lung abscess Home Medications ?Medication ?Instructions ?Recorded ?Last Taken ?Type acetaminophen 500 mg tablet 1,000 mg PO Q6H PRN PRN Pain 12/23/17 01/31/18 History ibuprofen 200 mg tablet 600 mg PO Q8H PRN PRN Pain 12/23/17 01/31/18 History divalproex 500 mg tablet,extended 1,000 mg PO QHS 08/14/20 12/25/23 History release 24 hr (Depakote ER) omeprazole 40 mg capsule,delayed 40 mg PO DAILY 08/14/20 12/26/23 History release propranolol 20 mg tablet 20 mg PO BID 08/14/20 12/26/23 History brexpiprazole 3 mg tablet (Rexulti) 3 mg PO DAILY 12/26/23 12/26/23 History cyclobenzaprine 10 mg tablet 10 mg PO Q8H 12/26/23 12/26/23 History levothyroxine 75 mcg tablet 75 mcg PO DAILY 12/26/23 12/26/23 History melatonin 10 mg capsule 10 mg PO QHS 12/26/23 12/25/23 History quetiapine 100 mg tablet 200 mg PO QHS PRN SLEEP 12/26/23 12/25/23 History vortioxetine 10 mg tablet 10 mg PO DAILY 12/26/23 12/26/23 History (Trintellix) Allergy/AdvReac Type Severity Reaction Status Date / Time No Known Allergies Allergy Verified 12/26/23 15:24 Family History Mother Hypertension Father Cancer unsure type Surgical History History of colonoscopy History of surgery on wrist Social History Smoking Status: Never smoker alcohol intake: current alcohol intake frequency: a few times a week ROS Constitutional Constitutional: Denies anorexia, change in weight, chills, fatigue, fever(s), night sweats or weakness Eyes Eyes: Denies blurry vision, change in vision, discharge from eye(s) or eye pain Cardiovascular Cardiovascular: Reports lightheadedness and syncope; Denies chest pain, claudication, dyspnea on exertion, edema, orthopnea or palpitations Respiratory/Chest Respiratory/Chest: Denies cough, hemoptysis, productive cough, shortness of breath at rest or shortness of breath with exertion Gastrointestinal Gastrointestinal: Denies abdominal pain, constipation, diarrhea, hematemesis, hematochezia, melena, nausea or vomiting Genitourinary Genitourinary: Denies dysuria, hematuria, urinary frequency, urinary hesitancy, urinary incontinence or urinary urgency Musculoskeletal Musculoskeletal: Denies back pain, joint pain, joint stiffness, joint swelling, myalgias or neck pain Neurologic Neurologic: Reports dizziness and syncope; Denies abnormal gait, abnormal speech, focal weakness, headache(s), loss of vision, numbness, other visual disturbances, paresthesias or tingling Psychiatric Psychiatric: Denies anxiety, cognitive impairment, depression, irritability, mood swings or suicidal ideation Endocrine Endocrinology: Denies change in body appearance, cold intolerance, excessive sweating, heat intolerance, polydipsia or polyuria Hematologic/Lymphatic Hematologic/Lymphatic: Denies none, anemia, easy bleeding, easy bruising or lymphadenopathy Allergic/Immunologic Allergic/Immunologic: Denies rhinitis, urticaria, eczemia or asthma Vital Signs Vital Signs Vital Signs: 12/26/23 15:24 12/26/23 16:45 12/26/23 16:46 Temperature 98.1 F Temperature Source Oral Pulse Rate 93 88 102 H Respiratory Rate 18 12 24 H Blood Pressure 113/62 120/68 108/65 Blood Pressure Mean 79 85 78 Pulse Ox 98 96 96 Oxygen Delivery Method Room Air 12/26/23 17:00 12/26/23 17:15 12/26/23 17:23 Temperature Temperature Source Pulse Rate 85 Respiratory Rate 16 Blood Pressure 134/72 H 134/68 H 127/72 H Blood Pressure Mean 88 84 90 Pulse Ox 96 96 98 Oxygen Delivery Method Room Air 12/26/23 17:30 12/26/23 17:45 12/26/23 17:46 Temperature Temperature Source Pulse Rate Respiratory Rate Blood Pressure 126/56 H 127/72 H 154/87 H Blood Pressure Mean 78 90 105 Pulse Ox 96 98 98 Oxygen Delivery Method 12/26/23 17:48 12/26/23 18:00 12/26/23 18:15 Temperature Temperature Source Pulse Rate 93 Respiratory Rate 14 Blood Pressure 146/78 H 147/71 H 153/88 H Blood Pressure Mean 95 89 104 Pulse Ox 97 96 Oxygen Delivery Method 12/26/23 18:30 12/26/23 18:31 12/26/23 18:45 Temperature Temperature Source Pulse Rate Respiratory Rate Blood Pressure 162/98 H 157/96 H Blood Pressure Mean 115 113 Pulse Ox 96 95 94 Oxygen Delivery Method 12/26/23 19:00 Temperature Temperature Source Pulse Rate 104 H Respiratory Rate 15 Blood Pressure Blood Pressure Mean Pulse Ox 95 Oxygen Delivery Method Weight Weight: 117.2 kg Body Mass Index (BMI) 37.0 Results Lab / Micro Data 12/26/23 15:45 12/26/23 15:45 Labs: Laboratory Results - last 24 hr 12/26/23 15:45: WBC 8.7, RBC 4.05 L, Hgb 14.2, Hct 39.9 L, MCV 98.5 H, MCH 35.1 H, MCHC 35.6, RDW Std Deviation 46.5 H, RDW Coeff of Shawn 13.0, Plt Count 112 L, MPV 10.5, Immature Gran % (Auto) 0.300, Neut % (Auto) 73.3 H, Lymph % (Auto) 14.1 L, [place] % (Auto) 11.8 H, Eos % (Auto) 0.2, Baso % (Auto) 0.3, Absolute Neuts (auto) 6.4, Absolute Lymphs (auto) 1.23, Nucleated RBC % 0, Sodium 129 L, Potassium 4.2, Chloride 93 L, Carbon Dioxide 21.0, Anion Gap 15, BUN 45 H, C reatinine 3.03 H, Estim Creat Clear Calc 34.08, Est GFR (MDRD) Af Amer 27 L, Est GFR (MDRD) Non-Af 23 L, BUN/Creatinine Ratio 14.9, Glucose 112 H, Calcium 8.8 Assessment & Plan Assessment/Plan (1) Syncope and collapse: PLAN: Plan 1. Syncope-etiology unclear, patient will be placed in observation status on PCU and will be monitored on telemetry, echocardiogram will be obtained #2 elevated creatinine-again I do not have record of the patient's last creatinine, patient will be given IV normal saline and labs will be repeated tomorrow #3 hyponatremia-etiology unclear, patient states that he drinks quite a bit of water at home, this may be delusional in nature, I will obtain a serum osmolality and urine osmolality. Spot urinary sodium will be obtained. #4 essential hypertension-patient will remain on his present medications, blood pressure will be monitored #5 bipolar disorder-patient will remain on his current medications Total clinical time spent by myself addressing the patient's medical issues, reviewing all of his data, and collaborating with patient's care team: 55 minutes Charges/Coding Visit Charges Inpatient E&M: 63202 Init Hosp L2
--- NOTE | 2023-12-26 20:35 | ECHOCS_ITS ---
Version 2 Reason For Study: Syncope/Near Syncope Procedure This was a 2D Doppler, Color Flow transthoracic echocardiogram. Contrast injection was performed. Exam performed portable in patient room. Left Ventricle Normal LV size. The left ventricular ejection fraction is 60 %. Stage 1 diastolic dysfunction. No regional wall motion abnormalities noted. Right Ventricle Normal RV size. Normal systolic function. Atria Normal left atrium. Normal right atrium. Mitral Valve Normal mitral valve. Tricuspid Valve Normal tricuspid valve. Mild tricuspid valve insufficiency. Pulmonary artery systolic pressure is 24 mmHg. Aortic Valve The aortic valve is not well visualized. Pulmonic Valve The pulmonic valve is not well visualized. Great Vessels Normal aortic root. The pulmonary artery is normal size. Normal inferior vena cava. Pericardium/Pleural No pericardial effusion. Medication Diluted definity 1.5ml given slow IV push to enhance endocardial definition. MMode/2D Measurements & Calculations LVIDd: 5.2 cm IVSd: 1.1 cm Ao root diam: 3.6 cm LVIDs: 3.4 cm LVPWd: 1.0 cm RVDd: 4.4 cm FS: 33.3 % LAV(MOD-bp): 41.5 ml LVAd ap4: 26.2 cm2 SV(MOD-sp4): 41.6 ml LAV(MOD-bp) Indexed: 18.0 ml/m2 LVLd ap4: 7.3 cm LAV(MOD-sp2): 38.4 ml EDV(MOD-sp4): 75.5 ml LAV(MOD-sp4): 41.2 ml EDV(sp4-el): 79.3 ml LVAs ap4: 15.6 cm2 LVLs ap4: 6.0 cm ESV(MOD-sp4): 33.9 ml ESV(sp4-el): 34.7 ml EF(MOD-sp4): 55.1 % EF(sp4-el): 56.3 % SV(sp4-el): 44.6 ml LA A4 area: 16.4 cm2 LA dimension(2D): 4.0 cm RA A4 area: 13.6 cm2 TAPSE: 2.3 cm Time Measurements MV dec time: 0.23 sec Doppler Measurements & Calculations MV E max dean: 55.9 cm/sec Lat Peak E' Dean: 12.9 cm/sec Med Peak E' Dean: 8.4 cm/sec MV A max dean: 93.9 cm/sec E/E' lat: 4.3 E/E' med: 6.7 MV E/A: 0.60 MV dec slope: 247.3 cm/sec2 Ao V2 max: 138.0 cm/sec LV V1 max: 118.8 cm/sec Ao max P.6 mmHg LV V1 max P.7 mmHg Ao V2 mean: 111.9 cm/sec LV V1 mean P.2 mmHg Ao mean P.2 mmHg LV V1 mean: 84.2 cm/sec Ao V2 VTI: 26.8 cm LV V1 VTI: 21.3 cm AV (velocity ratio): 0.79 PA V2 max: 95.7 cm/sec TR max dean: 231.0 cm/sec ECHO/Echo Complete W/ Contrast Interpretation Summary The left ventricular ejection fraction is 60 %. Normal LV size. No regional wall motion abnormalities noted. Stage 1 diastolic dysfunction. Contrast injection was performed. Ordering Physician: Rafa Rivera Referring Physician: Rafa Armas Performed By: Grace Santillan, [place], RVT
[2023-12-26] MEDS: 0.9% Normal Saline (1000mL) 1,000 ML 125 ML IV (21:26)
[2023-12-26] MEDS: Divalproex (ER) 500 MG Tablet 1000 MG PO (21:27)
[2023-12-26] MEDS: cycloBENZAPRine HCl 10 MG Tablet PO (21:27)
[2023-12-26] MEDS: Propranolol 10 MG Tablet 20 MG PO (21:28)
[2023-12-26] MEDS: MELATONIN 10 MG TABLET PO (21:29)
[2023-12-26 21:44] LABS: Thyroid Stim Hormone (TSH) 2.65 uIU/mL (0.358-3.74)
[2023-12-26] MEDS: QUEtiapine 100 MG Tablet 200 MG PO (22:13)
[2023-12-27 02:14] LABS: Osmolality, Serum 299 mOsm/KG (275-295)
[2023-12-27 03:38] VITALS: BP 131/76; PULSE 92; RESP 18; TEMP 36.8; O2SAT 97
[2023-12-27] MEDS: Levothyroxine 75 MCG Tablet PO (05:05)
[2023-12-27] MEDS: cycloBENZAPRine HCl 10 MG Tablet PO ×3 (05:05→21:37)
[2023-12-27] MEDS: 0.9% Normal Saline (1000mL) 1,000 ML 125 ML IV ×3 (05:07→20:19)
[2023-12-27 06:53] LABS: Anion Gap 11 (5-15); BUN 41 mg/dL (7-18); BUN/Creat Ratio 24.8 RATIO (10-20); Calcium,Total 8.2 mg/dL (8.5-10.1); Chloride 100 mmol/L (98-107); Creatinine, Serum 1.65 mg/dL (0.70-1.30); EST Glomerular Filtration Rate 46 mL/min (>60); Est Glom Filt Rate - Afr Amer 55 mL/min (>60); Estimated Creatinine Clearance 62.07 ml/min; Glucose 109 mg/dL (74-106); Potassium 3.7 mmol/L (3.5-5.1); Sodium Level 134 mmol/L (136-145)
[2023-12-27 09:29] VITALS: BP 135/78; PULSE 91; RESP 16; TEMP 36.8; O2SAT 96
[2023-12-27] MEDS: Pantoprazole Sodium 40 MG Tablet PO (09:32)
[2023-12-27] MEDS: Ensure Plus High Protein 120 ML LIQUID PO (09:32)
[2023-12-27] MEDS: Propranolol 10 MG Tablet 20 MG PO ×2 (09:32→21:37)
--- NOTE | 2023-12-27 12:35 | PN_ITS ---
Subjective Subjective Patient seen and examined. He still complains of dizziness, especially with getting up. He denies any chest pain, palpitations, dizziness, nausea, vomiting or any other symptoms. Review of systems is otherwise negative. Objective Data Objective Data Vital Signs: Vital Signs Temp Pulse Resp BP Pulse Ox O2 Del Method 98.3 F 91 16 135/78 H 96 Room Air 12/27/23 09:29 12/27/23 09:29 12/27/23 09:29 12/27/23 09:29 12/27/23 09:29 12/27/23 09:29 Oxygen Delivery Method Room Air Weight: 254 lb 3.088 oz Body Mass Index (BMI) 36.4 Intake & Output: Intake and Output for Last 24 Hours 12/25/23 12/26/23 12/27/23 23:59 23:59 23:59 Intake Total 1000 / 1000 3212.50 / 3212.50 Output Total 0 / 0 Balance 1000 / 1000 3212.50 / 3212.50 Lab / Micro Data 12/26/23 15:45 12/27/23 05:39 Labs: Laboratory Results - last 24 hr 12/26/23 15:45: WBC 8.7, RBC 4.05 L, Hgb 14.2, Hct 39.9 L, MCV 98.5 H, MCH 35.1 H, MCHC 35.6, RDW Std Deviation 46.5 H, RDW Coeff of Shawn 13.0, Plt Count 112 L, MPV 10.5, Immature Gran % (Auto) 0.300, Neut % (Auto) 73.3 H, Lymph % (Auto) 14.1 L, [place] % (Auto) 11.8 H, Eos % (Auto) 0.2, Baso % (Auto) 0.3, Absolute Neuts (auto) 6.4, Absolute Lymphs (auto) 1.23, Nucleated RBC % 0, Sodium 129 L, Potassium 4.2, Chloride 93 L, Carbon Dioxide 21.0, Anion Gap 15, BUN 45 H, C reatinine 3.03 H, Estim Creat Clear Calc 34.08, Est GFR (MDRD) Af Amer 27 L, Est GFR (MDRD) Non-Af 23 L, BUN/Creatinine Ratio 14.9, Glucose 112 H, Calcium 8.8, TSH 2.65 12/26/23 21:30: Serum Osmolality 299 H 12/27/23 05:39: Sodium 134 L, Potassium 3.7, Chloride 100, Carbon Dioxide 23.0, Anion Gap 11, BUN 41 H, Creatinine 1.65 H, Estim Creat Clear Calc 62.07, Est GFR (MDRD) Af Amer 55 L, Est GFR (MDRD) Non-Af 46 L, BUN/Creatinine Ratio 24.8 H, G lucose 109 H, Calcium 8.2 L Radiography Diagnostic Testing: Radiology Impression Echocardiogram 12/26/23 20:35 Interpretation Summary The left ventricular ejection fraction is 60 %. Normal LV size. No regional wall motion abnormalities noted. Stage 1 diastolic dysfunction. Contrast injection was performed. Ordering Physician: Rafa Rivera Referring Physician: Rafa Armas Performed By: Grace Santillan, NAYELICS, RVT Physical Exam Const alert, oriented x3 and no apparent distress Constitutional Narrative: obese General Appearance: cooperative HEENT normocephalic, head/scalp atraumatic, moist oral mucous membranes, oropharynx normal and gingiva normal Eyes EOMs intact bilaterally Neck no lymphadenopathy and supple Lymph Lymphatic: no lymphadenopathy noted and no lymphedema noted Resp normal respiratory effort, normal air movement and clear to auscultation bilaterally Cardio regular rate, regular rhythm, S1 normal heart sound, S2 normal heart sound and no murmurs GI normal to inspection, nondistended, normoactive bowel sounds, soft to palpation, non-tender and non-distended Extremity normal capillary refill, no clubbing, cyanosis or edema and no calf tenderness General Extremity: no tenderness to palpation of joints or extremities Skin General Skin Exam: no breakdown Neuro CN's II-XII intact bilaterally, no focal motor deficits, no sensory deficits noted and deep tendon reflexes 2+ bilaterally Motor Exam: strength 5/5 throughout and general weakness Psych thought process normal and cooperative Appearance: appropriate Assessment & Plan Assessment/Plan (1) TREMAINE (acute kidney injury): (2) Syncope and collapse: PLAN: Plan #syncope * likely due to orthostatic hypotension * dizziness is worse when he gets out of bed and tries to ambulate * orthostatics were positive, with diastolic BP dropping > 10mmhg with patient getting up. * continue gentle hydration with IVF * 2D ehco showed EF of 60% with normal LV size and no regional wall motion abnormalities, with stage 1 diastolic dysfunction * PT/OT on board. * fall precautions * will benefit from 30 day event monitor on outpatient basis * #TREMAINE * Creatinine was elevated at over 3 when he was admitted. He was hydrated with IV fluids and creatinine is down to 1.65. Continue gentle hydration and monitor. * #Hyponatremia: Sodium was 129 on admission and is now up to 134 after hydration with fluids. Was likely due to volume depletion. Will continue hydration and monitor. #Hypothyroidism: on synthroid. # Hypertension: On propranolol #GERD: On omeprazole. Complains of retrosternal burning pain with swallowing. Will add on surfactant and increase omeprazole to 40 mg twice daily and monitor. 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
[2023-12-27 14:35] VITALS: BP 140/65; PULSE 85; RESP 16; TEMP 36.8; O2SAT 96
--- NOTE | 2023-12-27 15:45 | CASEMGMT ---
Met with patient to complete PORRAS form. PORRAS form explained to patient who voiced understanding and signed form. Original form placed in pt?s chart and copy provided to patient. Afua Bonilla, Discharge Planning Asst
[2023-12-27 21:32] VITALS: BP 117/63; PULSE 90; RESP 16; TEMP 36.8; O2SAT 98
[2023-12-27] MEDS: Divalproex (ER) 500 MG Tablet 1000 MG PO (21:37)
[2023-12-27] MEDS: MELATONIN 10 MG TABLET PO (21:37)
[2023-12-27] MEDS: QUEtiapine 100 MG Tablet 200 MG PO (21:37)
[2023-12-28 04:00] VITALS: BP 121/62; PULSE 75; RESP 16; TEMP 36.8; O2SAT 98
[2023-12-28] MEDS: 0.9% Normal Saline (1000mL) 1,000 ML 125 ML IV (04:21)
[2023-12-28 05:36] LABS: Absolute Lymphocyte Count 1.46 X10^3/uL (0.83-4.51); Basophil# 0.05 X10^3/uL; Basophil% 0.9 % (0-1); Eosinophil# 0.19 X10^3/uL; Eosinophils% 3.5 % (0-5); Hematocrit 35.1 % (40-54); Hemoglobin 12.4 g/dL (13.0-16.5); Lymphocyte # 1.46 X10^3/ul (0.83-4.51); Lymphocyte % 26.7 % (19-41); Mean Corp Hgb Conc 35.3 g/dL (32-36); Mean Corpuscular Hgb 36.2 pg (27.0-32.0); Mean Corpuscular Volume 102.3 fL (80-94); Monocyte# 0.72 X10^3/uL; Monocyte% 13.2 % (0-10); NRBC Flagged by Analyzer 0 % (0-5); Neutrophil # 3.01 X10^3/uL (2.7-7.7); Neutrophil % 55.2 % (47-70); POSITIVE COUNT YES; Platelet Count 74 K/mm3 (150-450); RBC Distribution Width SD 48.4 fl (35.1-43.9); Red Blood Count 3.43 M/mm3 (4.6-6.2); White Blood Count 5.5 K/mm3 (4.4-11.0)
[2023-12-28] MEDS: Levothyroxine 75 MCG Tablet PO (05:38)
[2023-12-28] MEDS: cycloBENZAPRine HCl 10 MG Tablet PO (05:38)
[2023-12-28 06:11] LABS: Anion Gap 6 (5-15); BUN 26 mg/dL (7-18); BUN/Creat Ratio 24.3 RATIO (10-20); Calcium,Total 8.5 mg/dL (8.5-10.1); Chloride 106 mmol/L (98-107); Creatinine, Serum 1.07 mg/dL (0.70-1.30); EST Glomerular Filtration Rate 75 mL/min (>60); Est Glom Filt Rate - Afr Amer 91 mL/min (>60); Estimated Creatinine Clearance 95.71 ml/min; Glucose 106 mg/dL (74-106); Potassium 4.1 mmol/L (3.5-5.1); Sodium Level 138 mmol/L (136-145)
[2023-12-28 06:58] LABS: Differential Indicated SCAN CRITERIA MET
[2023-12-28 07:06] LABS: Differential Comment SCANNED
[2023-12-28 09:18] VITALS: BP 142/80; PULSE 74; RESP 16; TEMP 36.2; O2SAT 98
[2023-12-28] MEDS: Propranolol 10 MG Tablet 20 MG PO (09:25)
[2023-12-28] MEDS: Pantoprazole Sodium 40 MG Tablet PO (09:26)
--- NOTE | 2023-12-28 13:18 | DS.PCM_ITS ---
Providers Date of Admission: 12/26/23 Date of Discharge: 12/28/23 Primary Care Physician: Dr. Rafa Armas MD Reason For Visit: SYNCOPE Diagnosis Discharge Diagnosis (1) TREMAINE (acute kidney injury): Status: Acute Code(s): N17.9 - Acute kidney failure, unspecified (2) Syncope and collapse: Status: Acute Code(s): R55 - Syncope and collapse Plan #syncope * likely due to orthostatic hypotension * dizziness is worse when he gets out of bed and tries to ambulate * orthostatics were positive, with diastolic BP dropping > 10mmhg with patient getting up. * continue gentle hydration with IVF * 2D ehco showed EF of 60% with normal LV size and no regional wall motion abnormalities, with stage 1 diastolic dysfunction * PT/OT on board. * fall precautions * will benefit from 30 day event monitor on outpatient basis * #TREMAINE * Creatinine was elevated at over 3 when he was admitted. He was hydrated with IV fluids and creatinine is down to 1.65. Continue gentle hydration and monitor. * #Hyponatremia: Sodium was 129 on admission and is now up to 134 after hydration with fluids. Was likely due to volume depletion. Will continue hydration and monitor. #Hypothyroidism: on synthroid. # Hypertension: On propranolol #GERD: On omeprazole. Complains of retrosternal burning pain with swallowing. Will add on surfactant and increase omeprazole to 40 mg twice daily and monitor. 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 Medications at Discharge Home Medications acetaminophen 500 mg tablet 1,000 mg PO Q6H PRN PRN Pain 12/23/17 divalproex 500 mg tablet,extended release 24 hr (Depakote ER) 1,000 mg PO QHS seizure 08/14/20 propranolol 20 mg tablet 20 mg PO BID heart/bp 08/14/20 brexpiprazole 3 mg tablet (Rexulti) 3 mg PO DAILY mood 12/26/23 cyclobenzaprine 10 mg tablet 10 mg PO Q8H muscle spasms 12/26/23 fexofenadine 60 mg tablet (Maria L Allergy) 60 mg PO Q12H PRN allergies 12/26/23 levothyroxine 75 mcg tablet 75 mcg PO DAILY thyroid 12/26/23 melatonin 10 mg capsule 10 mg PO QHS sleep 12/26/23 quetiapine 100 mg tablet 200 mg PO QHS PRN SLEEP 12/26/23 vortioxetine 10 mg tablet (Trintellix) 10 mg PO DAILY mood 12/26/23 pantoprazole 40 mg tablet,delayed release 40 mg PO BID #60 tabs 12/28/23 Hospital Course Operations None Procedures 2-D Echocardiogram Summary of Care Provided Minutes Spent on Discharge: 45 Hospital Course: Patient is a 58 y/o male with a PMH as outlined who was admitted via the ED with a complaint of recurrent syncope. He said the syncope was usually when he got up from a seated position. HE had six syncopal episodes over the last few weeks prior to admission. Orthostatics were positive on admission. CBC was unremarkable, and BNP was significant for sodium of 129, potassium of 3.3 and BUN of 45. He was admitted and managed for syncope due to orthostatic hypotension. HE was hydrated with IV fluids. Hyponatremia improved with hydration as well as creatinine trending down to 1.07. 2D echo showed no regional motion abnormalities and showed stage I diastolic dysfunction as well as normal left ventricular size and EF of 60%. Patient did complain of some retrosternal burning sensation. He did have a history of GERD and was on ibuprofen. Ibuprofen was discontinued and his pantoprazole was increased to 40 mg daily to 40 mg twice daily. He was counseled not to use any NSAIDs and was given a referral to gastroenterology on outpatient basis. Of note patient also had a history of transient urinary retention was in the hospital and was straight cathed in the hospital. Patient admitted to having some dribbling and hesitancy welts at home and said he was on Flomax. He was therefore also given a referral to urology on outpatient basis. Patient was discharged home on 12/28/2023 with a prescription for an 30-day event monitor which will be forwarded to his PCP. He is to follow-up with his primary care doctor and is counseled to remain well- hydrated. I do think patient's symptoms were also likely due to dehydration as he said he had not been eating and drinking well in the bed to lose weight. This was also evidenced by his TREMAINE with creatinine of 3 which trended down to normal after he was hydrated with fluids. Patient seen and examined prior to discharge. He had no active complaints and had an uneventful night. Review of symptoms otherwise negative. Labs and vitals reviewed. Home medication reviewed and reconciled. Physical Exam Const alert, oriented x3 and no apparent distress Constitutional Narrative: obese General Appearance: cooperative and comfortable Orientation / Consciousness: awake HEENT normocephalic, head/scalp atraumatic, hearing grossly normal bilaterally, moist oral mucous membranes, oropharynx normal and gingiva normal Mouth: oral and palatal mucosa normal Eyes PERRL, EOMs intact bilaterally and conjunctivae normal Neck no lymphadenopathy and supple Lymph Lymphatic: no lymphadenopathy noted and no lymphedema noted Resp normal respiratory effort, normal air movement and clear to auscultation bilaterally Cardio regular rate, regular rhythm, S1 normal heart sound, S2 normal heart sound and no murmurs GI normal to inspection, nondistended, normoactive bowel sounds, soft to palpation, non-tender and non-distended Extremity normal capillary refill, no clubbing, cyanosis or edema and no calf tenderness General Extremity: no tenderness to palpation of joints or extremities Skin no rashes or lesions noted General Skin Exam: no breakdown Neuro oriented x3, CN's II-XII intact bilaterally, moves all extremities, no focal motor deficits, no sensory deficits noted and deep tendon reflexes 2+ bilaterally Sensorium / Orientation: awake Motor Exam: strength 5/5 throughout and general weakness Psych thought process normal and cooperative Appearance: appropriate Weight / BMI Weight Weight: 254 lb 3.088 oz Body Mass Index (BMI) 36.4 ABG / Lab / Microbiology Data 12/28/23 05:00 12/28/23 05:00 Laboratory: Laboratory Results - last 24 hr 12/28/23 05:00: WBC 5.5, RBC 3.43 L, Hgb 12.4 L, Hct 35.1 L, MCV 102.3 H, MCH 36.2 H, MCHC 35.3, RDW Std Deviation 48.4 H, RDW Coeff of Shawn 13.0, Plt Count 74 L, MPV 11.0, Immature Gran % (Auto) 0.500, Neut % (Auto) 55.2, Lymph % (Auto) 26.7, [place] % (Auto) 13.2 H, Eos % (Auto) 3.5, Baso % (Auto) 0.9, Absolute Neuts (auto) 3.0, Absolute Lymphs (auto) 1.46, Nucleated RBC % 0, Differential Comment SCANNED, Sodium 138, Potassium 4.1, Chloride 106, Carbon Dioxide 26.0, Anion Gap 6, BUN 26 H, Creatinine 1.07, Estim Creat Clear Calc 95.71, Est GFR (MDRD) Af Amer 91, Est GFR (MDRD) Non-Af 75, BUN/Creatinine Ratio 24.3 H, Glucose 106, Calcium 8.5 D/C Instructions Discharge Diet: Low fat / Low cholesterol Discharge Activity: Return to Normal Activity Weight Bearing Status: Weight bearing as tolerated Call your doctor if you observe: Fever of 101 or Higher, Shortness of breath, Dizziness, Fainting spells, Swelling in the ankles, Increased palpitations (irregular heartbeat) and Calf discomfort Meaningful Use Info Meaningful Use Meaningful Use Diagnoses (Choose all that apply): None applicable Ischemic Stroke Statin Dosing Therapy Reference: STATIN DOSE THERAPY REFERENCE: * Patients > 75 years receive moderate or high dose statin therapy. * Patients 75 years or YOUNGER should receive HIGH intensity statin dose unless contraindicated. You will be required to document reason for non-treatment if statin daily dose does not meet guidelines. HIGH DOSE STATIN THERAPY DAILY Atorvastatin > than or = to 40 mg Rosuvastatin > than or = to 20 mg Amlodipine + Atorvastatin > than or = to 2.5/40 mg Ezetimibe + Simvastatin 10/80 mg Simvastatin 80mg Discharge Plan Admission Admit Date/Time: 12/26/23 19:12 Primary Reason for Your Visit: orthostatic hypotension Attending Provider: Vidhya Thrasher Primary Care Provider: Rafa Armas Consulting Providers: Rafa Rivera Instructions Patient Instructions: ED Hypotension, Orthostatic Discharge Orders/Prescriptions Prescriptions: New pantoprazole 40 mg Tablet,Delayed Release (Dr/Ec) 40 mg PO BID Qty: 60 2RF Continued divalproex [Depakote ER] 500 mg tablet extended release 24 hr 1,000 mg PO QHS propranolol 20 mg tablet 20 mg PO BID acetaminophen 500 MG tablet 1,000 mg PO Q6H PRN PRN (Reason: Pain) Rexulti 3 mg tablet 3 mg PO DAILY Patient Comments: TAKE 1 TABLET BY MOUTH ONCE DAILY cyclobenzaprine 10 mg tablet 10 mg PO Q8H Patient Comments: TAKE 1 TABLET BY MOUTH THREE TIMES DAILY NEEDED FOR UP TO 10 DAYS levothyroxine 75 mcg tablet 75 mcg PO DAILY Patient Comments: TAKE 1 TABLET BY MOUTH ONCE DAILY ON AN EMPTY STOMACH FOR THYROID quetiapine 100 mg tablet 200 mg PO QHS PRN Patient Comments: TAKE 1 TO 2 TABLETS BY MOUTH AT BEDTIME NEEDED FOR SLEEP Trintellix 10 mg tablet 10 mg PO DAILY Patient Comments: TAKE 1 TABLET BY MOUTH ONCE DAILY DIRECTED melatonin 10 mg capsule 10 mg PO QHS fexofenadine [Maria L Allergy] 60 mg tablet 60 mg PO Q12H PRN (Reason: allergies) Discontinued omeprazole 40 mg capsule,delayed release(DR/EC) 40 mg PO DAILY ibuprofen 200 MG tablet 600 mg PO Q8H PRN PRN (Reason: Pain) Other Ambulatory Orders: 30 Day Event Recorder Preventi (Urgent) Timeframe: 1 Day Facility: [facility] - Location: Cardiovascular Services Ordered By: Dr. Vidhya Thrasher Referrals / Follow Up: Adis Murphy MD [Med Staff - Active Staff] - Within 2 Weeks (see for suspected BPH) Rafa Armas MD [Primary Care Provider] - Within 1 Week Nilay Dhillon DO [Med Staff - Active Staff] - Within 2 Weeks Disposition Disposition (needs filled in before D/C Order can be placed): Home, Self Care Charges/Coding Visit Charges Inpatient E&M: 37926 Disch Hosp >30min
--- NOTE | 2023-12-28 14:42 | CASEMGMT ---
Patient has order for discharge. RN CM in to discuss needs at discharge. Patient states he may be interested in outpatient therapy at discharge and will schedule at facility of choice. Patient had no further questions or concerns. Script received and placed in discharge packet with [employer] information
[2023-12-28 15:28] VITALS: BP 138/60; PULSE 82; RESP 14; TEMP 36.3; O2SAT 99
--- NOTE | 2023-12-28 16:50 | PHA.DC.MR.R ---
Pharmacy [place] Med Reconciliation Pharmacy Service has performed discharge medication reconciliation for this patient. Medication education papers printed, unable to career development counselor prior to discharge. The patient's discharge medication list was reviewed for discrepancies and discrepancies were resolved. Medications at Discharge Home Medications acetaminophen 500 mg tablet 1,000 mg PO Q6H PRN PRN Pain 12/23/17 divalproex 500 mg tablet,extended release 24 hr (Depakote ER) 1,000 mg PO QHS seizure 08/14/20 propranolol 20 mg tablet 20 mg PO BID heart/bp 08/14/20 brexpiprazole 3 mg tablet (Rexulti) 3 mg PO DAILY mood 12/26/23 cyclobenzaprine 10 mg tablet 10 mg PO Q8H muscle spasms 12/26/23 fexofenadine 60 mg tablet (Maria L Allergy) 60 mg PO Q12H PRN allergies 12/26/23 levothyroxine 75 mcg tablet 75 mcg PO DAILY thyroid 12/26/23 melatonin 10 mg capsule 10 mg PO QHS sleep 12/26/23 quetiapine 100 mg tablet 200 mg PO QHS PRN SLEEP 12/26/23 vortioxetine 10 mg tablet (Trintellix) 10 mg PO DAILY mood 12/26/23 pantoprazole 40 mg tablet,delayed release 40 mg PO BID #60 tabs 12/28/23
== END 2023-12-28 13:16 | disposition home or self-care (01) ==
LOC: ED 18:04 → PCU 20:14
PROVIDERS: Admitting Provider Internal Medicine; Emergency Provider Emergency Medicine; PCP Family Medicine; Visit Provider Student in an Organized Health Care Education/Training Program
DX: I95.1 Orthostatic hypotension (principal); F31.9 Bipolar disorder, unspecified; N17.9 Acute kidney failure, unspecified; K21.9 Gastro-esophageal reflux disease without esophagitis; E86.0 Dehydration; I10 Essential (primary) hypertension; S80.212A Abrasion, left knee, initial encounter; S01.01XA Laceration without foreign body of scalp, initial encounter; E87.1 Hypo-osmolality and hyponatremia; Z79.899 Other long term (current) drug therapy; F41.9 Anxiety disorder, unspecified; W19.XXXA Unspecified fall, initial encounter; Z79.890 Hormone replacement therapy; E03.9 Hypothyroidism, unspecified
CPT/HCPCS: 36415; 80048; 83930; 84443; 85025; 93005; 93306; 96360; 96361; 97161; 97166; 97802; 99221; 99285; J7030; Q9957; A4216; C8929; G0378

== ENCOUNTER 2024-03-17 18:46 | Emergency (ER) | payer MEDICARE, MEDICAID, SELFPAY ==
[2024-03-17 18:47] VITALS: BP 155/101; PULSE 105; RESP 19; TEMP 36.5; O2SAT 91; BMI 38.1
--- NOTE | 2024-03-17 18:55 | CT_ITS ---
EXAMINATION : Head CT w/out contrast HISTORY : fall COMPARISON : None. TECHNIQUE : Multiple contiguous axial images were obtained from the skull base to the vertex without intravenous contrast. A radiation dose optimization technique was used for this scan. FINDINGS : There is no evidence for acute intracranial hemorrhage, mass effect, or midline shift. There is no extra-axial fluid collection. There are periventricular white matter changes consistent with chronic microvascular ischemic disease. There is sulcal widening and ventricular enlargement consistent with cerebral atrophy. There is normal del rosario-white differentiation, without CT evidence of acute ischemia or infarct. The skull base and calvarium are unremarkable. The orbits are unremarkable. The paranasal sinuses are clear. The mastoid air cells are well-aerated. The soft tissues are unremarkable. CT/Brain/Head without Contrast IMPRESSION: No acute intracranial abnormality. Chronic involutional and ischemic changes of the brain. Electronically Signed: Jarrell Beckett MD at 19:40 EDT ,
--- NOTE | 2024-03-17 18:55 | CT_ITS ---
INDICATION: fall EXAMINATION: CT FACIAL BONES - CT Maxillofacial W/O Contrast Injection TECHNIQUE: Helically acquired images were obtained of the facial bones. A radiation dose optimization technique was used for this scan. IV Contrast dosage and agent: None. COMPARISON: None. FINDINGS: SOFT TISSUES: No focal subcutaneous swelling. No discrete fluid collections. VISUALIZED PARANASAL SINUSES: Clear. VISUALIZED MASTOID AIR CELLS: Clear. FACIAL BONES, MANDIBLE AND TMJs: No displaced facial bone fracture. No lytic or blastic abnormality. VISUALIZED DENTITION: No periodontal osseous erosion. ORBITAL CONTENTS: Both globes, extraocular muscles and retrobulbar fat appear unremarkable. CT/Sinus/Facial Bone IMPRESSION: Unremarkable CT of the facial bones. Electronically Signed: Jarrell Beckett MD at 19:41 EDT ,
--- NOTE | 2024-03-17 18:55 | CT_ITS ---
INDICATION: neck pain EXAMINATION: CT CERVICAL SPINE - CT Spine Cervical W/O Contrast Injection TECHNIQUE: Helically acquired images were obtained of the cervical spine. 2D reformatted images were reviewed. A radiation dose optimization technique was used for this scan. IV Contrast dosage and agent: None. COMPARISON: None. FINDINGS: VERTEBRAE: No fracture or traumatic subluxation. No discrete lytic or blastic abnormality. Normal alignment. Normal craniocervical junction and cervicothoracic junction. DISCS and SPINAL CANAL: Mild multilevel degenerative disc disease and spondylosis. No critical stenosis. NECK SOFT TISSUES: No prevertebral soft tissue swelling. There is no cervical adenopathy. LUNG APICES: Clear. CT/Spine Cervical without Contras IMPRESSION: No evidence of acute cervical spinal fracture or spondylolisthesis. Mild multilevel degenerative disc disease and spondylosis. Electronically Signed: Jarrell Beckett MD at 19:40 EDT ,
--- NOTE | 2024-03-17 18:57 | EDS_ITS ---
HPI <SOPHIE Garcia - Last Filed: 03/17/24 21:46> History of Present Illness Chief Complaint: Fall Narrative Narrative: Patient is a 58-year-old male with history of alcohol use, hypertension, bipolar who presents to the emergency department after mechanical fall. Patient dates he was take out the garbage, when he fell face forward striking the concrete with his face. Patient denies any LOC however he is unsure. Pay states has been drinking alcohol since 4 PM. He states he is alcoholic, if he does not drink he shakes. Patient complains of pain to his face head as well as neck. Patient refused the cervical collar for the squad, patient is also refusing a cervical collar here. Patient has obvious abrasions, lacerations to the face. Denies any other injury. PFSH <SOPHIE Garcia - Last Filed: 03/17/24 21:46> [facility] Medical History Diarrhea Rectal bleeding Anxiety and depression Uncontrolled hypertension history of shoulder pain History of hemorrhoids Abnormal LFTs Bilateral pulmonary embolism Sepsis GERD (gastroesophageal reflux disease) Bipolar disorder Lung abscess Home Medications ?Medication ?Instructions ?Recorded ?Last Taken ?Type acetaminophen 500 mg tablet 1,000 mg PO Q6H PRN PRN Pain 12/23/17 01/31/18 History divalproex 500 mg tablet,extended 1,000 mg PO QHS seizure 08/14/20 12/25/23 History release 24 hr (Depakote ER) propranolol 20 mg tablet 20 mg PO BID heart/bp 08/14/20 12/26/23 History brexpiprazole 3 mg tablet (Rexulti) 3 mg PO DAILY mood 12/26/23 12/26/23 History cyclobenzaprine 10 mg tablet 10 mg PO Q8H muscle spasms 12/26/23 12/26/23 History fexofenadine 60 mg tablet (Maria L 60 mg PO Q12H PRN allergies 12/26/23 Unknown History Allergy) levothyroxine 75 mcg tablet 75 mcg PO DAILY thyroid 12/26/23 12/26/23 History melatonin 10 mg capsule 10 mg PO QHS sleep 12/26/23 12/25/23 History quetiapine 100 mg tablet 200 mg PO QHS PRN SLEEP 12/26/23 12/25/23 History vortioxetine 10 mg tablet 10 mg PO DAILY mood 12/26/23 12/26/23 History (Trintellix) pantoprazole 40 mg tablet,delayed 40 mg PO BID #60 tabs 12/28/23 Unknown Rx release Allergy/AdvReac Type Severity Reaction Status Date / Time No Known Allergies Allergy Verified 12/26/23 15:24 Family History Mother Hypertension Father Cancer unsure type Surgical History History of colonoscopy History of surgery on wrist Social History Smoking Status: Never smoker alcohol intake: current alcohol intake frequency: a few times a week ROS <SOPHIE Garcia - Last Filed: 03/17/24 21:46> ROS ED ROS Narrative Constitutional: Negative for fever, chills, weight loss, weakness Eyes: Negative for vision loss, vision change, double vision ENT: Negative for any sore throat, ear pain, congestion. Positive for nose bleeding Cardiovascular: Negative for any chest pain, tightness, palpitations Respiratory: Negative for any cough, sputum production, hemoptysis, dyspnea, dyspnea on exertion, orthopnea Gastrointestinal: Negative for any abdominal pain, nausea, vomiting, diarrhea, constipation, blood in stool, blood in vomit : Negative for any urinary frequency, dysuria, retention, blood in urine Muscle skeletal: Negative for any neck pain, back pain Neurological: Negative for any headache, syncope, dizziness Skin: Negative for any rashes, itching. Positive for abrasions to the face, nose, forehead Psychiatric: Negative for any depression, anxiety, stress, suicidal ideation, homicidal ideation Hematologic: Negative for any excessive bruising, easy bleeding EXAM <SOPHIE Garcia - Last Filed: 03/17/24 21:46> Physical Exam Narrative Exam Narrative: Vital signs reviewed. Patient is alert and orient x 4, is able to explain what happened however patient does appear intoxicated. HEET: Head normocephalic atraumatic, TMs clear bilaterally. Posterior pharynx is clear, moist mucous membranes. Nares clear bilaterally. Pupils are equal round reactive to light, patient does have a laceration to the tip of the nose, he does have some dried blood in each nare. Patient has no hemotympanum or septal hematoma. Neck: Supple with no lymphadenopathy or tenderness. No signs of meningismus. Cardiac: Regular rate and rhythm no murmurs gallops or rubs, equal peripheral pulses bilaterally. Respiratory: Lungs clear to auscultation bilaterally. No chest tenderness. Patient does have bruising to the right flank however this is old. Abdomen: Soft, nontender, nondistended. No abdominal bruit or pulsatile masses. No hepatosplenomegaly Extremities: No peripheral edema, no signs of gross trauma or deformity. Active full range of motion of all extremities. Neuro: Cranial nerves II through XII intact, no focal neurological deficits. Skin: Clean dry and intact with no rash, purpura, petechiae, vesicles or pustules. Backs/flank: No CVA tenderness, no midline spinal tenderness, no deformity. Psych: Normal mood and affect. No SI, HI or acute psychosis. Const Vital Signs: 03/17/24 18:47 03/17/24 18:55 03/17/24 20:46 Temperature 97.7 F L Temperature Source Oral Pulse Rate 105 H 100 Respiratory Rate 19 H 22 H Respiratory Effort Normal Non-Labored Respiratory Depth Normal Respiratory Pattern Normal Blood Pressure 155/101 H Blood Pressure Mean 119 Pulse Ox 91 96 Oxygen Delivery Method Room Air Room Air Room Air <Dr. Breezy Garcia DO - Last Filed: 03/17/24 23:07> Physical Exam Const Vital Signs: 03/17/24 18:47 03/17/24 18:55 03/17/24 20:46 Temperature 97.7 F L Temperature Source Oral Pulse Rate 105 H 100 Respiratory Rate 19 H 22 H Respiratory Effort Normal Non-Labored Respiratory Depth Normal Respiratory Pattern Normal Blood Pressure 155/101 H Blood Pressure Mean 119 Pulse Ox 91 96 Oxygen Delivery Method Room Air Room Air Room Air MDM <SOPHIE Garcia - Last Filed: 03/17/24 21:46> MDM Radiography Diagnostic Testing: Clinical Impression(s) from Imaging Studies Brain CT 03/17/24 18:55 IMPRESSION: No acute intracranial abnormality. Chronic involutional and ischemic changes of the brain. Electronically Signed: Jarrell Beckett MD at 19:40 EDT , Cervical Spine CT 03/17/24 18:55 IMPRESSION: No evidence of acute cervical spinal fracture or spondylolisthesis. Mild multilevel degenerative disc disease and spondylosis. Electronically Signed: Jarrell Beckett MD at 19:40 EDT , Facial/Sinus 03/17/24 18:55 IMPRESSION: Unremarkable CT of the facial bones. Electronically Signed: Jarrell Beckett MD at 19:41 EDT , Treatment and Re-Evaluation :: Differential diagnosis includes however is not limited to: Facial fracture, nasal fracture, soft tissue injury, concussion, skull fracture, intercranial bleeding Patient appears generally well, vital signs are stable, patient is nontoxic- appearing. Patient does appear intoxicated however he is alert and orient x 4. Patient does have superficial wounds to his face, forehead. I told the patient the importance of using a cervical c-collar secondary to the patient having neck pain after a fall. He again refused. Patient will receive a CT scan of the brain, cervical spine, maxillofacial bones. All radiologic examinations were read, reviewed by the emergency department attending. From these reads, a plan of care will be put in place. Patient on reevaluation was sleeping however wakes to verbal stimuli, brain CT scan shows no acute intracranial abnormality. CT scan of the cervical spine sh ows no evidence of acute cervical spine fracture or spondylolisthesis. Facial sinus bones showed no acute fracture. Patient does have an avulsion like laceration to the right side of the tip of the nose. This is unable to be sutured however I did use skin glue. Patient did ambulate to the bathroom happy was kind of wobbly, patient will be will be discharged home, he does have a friend named Brigido that will come and get him however he will not arrive until 11 PM. Patient is eating and drinking at this time. Patient instructed to get help with drinking, he does not currently want help at this time. He is instructed use [id number] ibuprofen, Tylenol for pain. All questions answered, stable for discharge. <Dr. Breezy Garcia, DO - Last Filed: 03/17/24 23:07> [facility] Narrative Medical decision making narrative: I have personally performed a face to face assessment of the patient and have reviewed the ANCELMO Note. I performed a substantive portion of the visit including all aspects of the following. My hart findings include: History: Patient presents after a fall that occurred today. Patient states he fell forward and hit his face. Patient is unsure if he had any loss of consciousness. Patient denies any paresthesias or weakness. Patient is unsure of his last tetanus. Patient complains of pain on his face and head. Patient also admits to some mild neck pain. Patient denies any other injuries. Exam: Vital signs are stable. Patient is afebrile. Patient is in no acute distress. Pupils are equal, round, and reactive to light bilaterally. Extraocular muscles are intact. Conjunctiva is clear. Nasal mucosa is pink and moist. There is no septal deviation or septal hematoma. There is a large abrasion over the nose. There is also a superficial abrasion of the left forehead. There is mild bleeding. There is no bony crepitance or step-off noted. Oral mucosa is pink and moist. Neck is supple. Trachea is midline. No JVD. Heart was regular rate and rhythm. Lungs are clear and equal bilaterally. Abdomen is soft and nontender. Cranial nerves II through XII are intact. There are no focal motor or sensory deficits. Medical Decision Making: Differential diagnosis includes intracranial bleeding, nasal fracture, cervical spine fracture, contusion, and closed head injury. CT scan of the brain will be obtained to assess for intracranial bleeding. CT scan of the facial bones will be obtained to assess for facial fracture. CT scan of the cervical spine will be obtained to assess for cervical spine fracture. CT scan of the cervical spine was obtained. There is no acute fracture. There is no spondylolisthesis noted. There are degenerative changes noted. This was interpreted by the radiologist and was also independently reviewed by myself. CT scan of the facial bones was obtained. There are no acute fractures. This was interpreted by the radiologist and was also independently reviewed by myself. CT scan of the brain was obtained. There is no acute intracranial abnormality. This was interpreted by the radiologist and was also independently reviewed by myself. Patient was advised of his findings. Patient was instructed to follow-up with his primary care physician in 5 to 7 days. Patient was instructed to keep the wound clean and dry. Patient understood and was agreeable with the plan. All questions were answered. Radiography Diagnostic Testing: Clinical Impression(s) from Imaging Studies Brain CT 03/17/24 18:55 IMPRESSION: No acute intracranial abnormality. Chronic involutional and ischemic changes of the brain. Electronically Signed: Jarrell Beckett MD at 19:40 EDT Reading Location ID and State: [id number] / [employer] , Service support , Cervical Spine CT 03/17/24 18:55 IMPRESSION: No evidence of acute cervical spinal fracture or spondylolisthesis. Mild multilevel degenerative disc disease and spondylosis. Electronically Signed: Jarrell Beckett MD at 19:40 EDT Reading Location ID and State: [id number] / [place] Tel , Service support , Facial/Sinus 03/17/24 18:55 IMPRESSION: Unremarkable CT of the facial bones. Electronically Signed: Jarrell Beckett MD at 19:41 EDT , Discharge Plan Triage Chief Complaint: Fall ED Midlevel Provider: Hernando Forbes ED Provider: Breezy Garcia Dx/Rx/DC Orders Clinical Impression: Alcohol intoxication, Fall, Head injury, Abrasion, Cervical muscle strain Instructions: Concussion Dc, ED Abrasion, ED Alcohol Intoxication Prescriptions: No Action divalproex [Depakote ER] 500 mg tablet extended release 24 hr 1,000 mg PO QHS propranolol 20 mg tablet 20 mg PO BID acetaminophen 500 MG tablet 1,000 mg PO Q6H PRN PRN (Reason: Pain) Rexulti 3 mg tablet 3 mg PO DAILY Patient Comments: TAKE 1 TABLET BY MOUTH ONCE DAILY cyclobenzaprine 10 mg tablet 10 mg PO Q8H Patient Comments: TAKE 1 TABLET BY MOUTH THREE TIMES DAILY NEEDED FOR UP TO 10 DAYS levothyroxine 75 mcg tablet 75 mcg PO DAILY Patient Comments: TAKE 1 TABLET BY MOUTH ONCE DAILY ON AN EMPTY STOMACH FOR THYROID quetiapine 100 mg tablet 200 mg PO QHS PRN Patient Comments: TAKE 1 TO 2 TABLETS BY MOUTH AT BEDTIME NEEDED FOR SLEEP Trintellix 10 mg tablet 10 mg PO DAILY Patient Comments: TAKE 1 TABLET BY MOUTH ONCE DAILY DIRECTED melatonin 10 mg capsule 10 mg PO QHS fexofenadine [Maria L Allergy] 60 mg tablet 60 mg PO Q12H PRN (Reason: allergies) pantoprazole 40 mg Tablet,Delayed Release (Dr/Ec) 40 mg PO BID Qty: 60 2RF Primary Care Provider: Rafa Armas Referrals: Rafa Armas MD [Primary Care Provider] - Activity Restrictions/Additional Instructions: Please try to decrease your alcohol use. You likely have a concussion, please continue to use Tylenol, ibuprofen. Make sure you ice. Return for any worsening symptoms. Print Language: Libyan Disposition Disposition: Home, Self Care Discharge Date/Time: 03/17/24 22:52
--- OUTSIDE RECORDS SUMMARY | 2024-03-17 19:23 | XMS RPT_ITS | CCD ---
Author Organization [facility] Care Team Providers Care Power Transformer Assembler Name Role Phone ANÍBALSHACLAUDIA Unavailable Unavailable FRANKLIN SCHAFER Unavailable Unavailable FRANKLIN SCHAFER Unavailable Unavailable BARRIENTOS, TERRENCE Unavailable Unavailable BARRIENTOS, TERRENCE Unavailable Unavailable BARRIENTOS, TERRENCE Unavailable Unavailable JEREMIE RAMÍREZ Unavailable Unavailable MAXIMO ESPINAL Unavailable Unavailable BAKHOUS, AZIZ Unavailable Unavailable Franklin Schafer J Unavailable Unavailable SchaferFranklin koehler J Unavailable Unavailable TALAMPAS, ALEIDA Unavailable Unavailable BARRIENTOS, TERRENCE Unavailable Unavailable TALAMPAS, ALEIDA Unavailable Unavailable BARRIENTOS, TERRENCE Unavailable Unavailable BARRIENTOS, TERRENCE Unavailable Unavailable BARRIENTOS, TERRENCE Unavailable Unavailable TALAMPAS, ALEIDA Unavailable Unavailable BARRIENTOS, TERRENCE Unavailable Unavailable IMCA Unavailable Unavailable TALAMPAS, ALEIDA Unavailable Unavailable JEREMIE RAMÍREZ Unavailable Unavailable TALAMPAS, ALEIDA Unavailable Unavailable MAXIMO ESPINAL Unavailable Unavailable DUMFORD III, ZOILA Unavailable Unavailable MICHAELA, TENZIN Unavailable Unavailable LEO, PIOTR Unavailable Unavailable DRAGAN LOMBARDO Unavailable Unavailable BAKHOUS, AZIZ Unavailable Unavailable MICHAELA, TENZIN Unavailable Unavailable TALAMPAS, ALEIDA Unavailable Unavailable Maile Ortez Unavailable Melissa Chaudhry Unavailable Unavailable Unavailable Unavailable Andreia Lechuga LPN Unavailable Unavailab ALIRIO Blas Primary Care Unavailable MÓNICA WALTON Attending Unavailable ALIRIO ARMAS Primary Care Unavailable MÓNICA WALTON Referring Unavailable ALIRIO ARMAS Primary Care Unavailable THEE ROMANO Attending Unavailable ALIRIO ARMAS Primary Care Unavailable ALIRIO ARMAS Attending Unavailable ALIRIO ARMAS Primary Care Unavailable ALIRIO ARMAS Referring Unavailable ALIRIO ARMAS Primary Care Unavailable MÓNICA WALTON Attending Unavailable ALIRIO ARMAS Primary Care Unavailable THEE ROMANO Attending Unavailable ALIRIO ARMAS Primary Care Unavailable MÓNICA WALTON Referring Unavailable ALIRIO ARMAS Primary Care Unavailable MÓNICA WALTON Attending Unavailable ALIRIO ARMAS Primary Care Unavailable MÓNICA AWLTON Referring Unavailable ALIRIO ARMAS Primary Care Unavailable MÓNICA WALTON Attending Unavailable ALIRIO ARMAS Primary Care Unavailable MÓNICA WALTON Attending Unavailable ALIRIO ARMAS Primary Care Unavailable MÓNICA WALTON Attending Unavailable ALIRIO ARMAS Primary Care Unavailable MÓNICA WALTON Attending Unavailable ALIRIO ARMAS Primary Care Unavailable MÓNICA WALTON Attending Unavailable ALIRIO ARMAS Primary Care Unavailable MÓNICA WLATON Referring Unavailable ALIRIO ARMAS Primary Care Unavailable MÓNICA WALTON Attending Unavailable Medications Completed/Discontinued Medications Medication Drug Class(es) Dates Sig (Normalized) Sig (Original) amLODIPine 5 mg oral tablet (1 source) Dihydropyridine Calcium Channel Bijan Start: 03-24-20 18 take 1 tablet by mouth once daily Norvasc 5 MG Oral Tablet 1 (one) Tablet qd for 0 days Quantity: 30 {Tablet} Refills: 2 Ordered: 24-Mar-2018 Maile Ortez DO, DO, Kathleen Start : 24-Mar-2018 Active apixaban 5 mg oral tablet (1 source) Factor Xa Inhibitor Start: 03-24-20 18 take 1 tablet by mouth twice daily Eliquis 5 MG Oral Tablet 1 Tablet bid for 0 days Quantity: 60 {Tablet} Refills: 1 Ordered: 24-Mar-2018 Maile Ortez DO, DO, Kathleen Start : 24-Mar-2018 Active azithromycin 250 mg oral tablet (1 source) Macrolide Antimicrobial Start: 10-26-19 17 End: 10-31-19 17 ZITHROMAX Z-MAYE 250 MG TABS Take 2 pills on day 1 then 1 pill days 2 through 5 AZITHROMYCIN [id number] Nicola LOPEZ benzonatate 100 mg oral capsule (1 source) Non-narcotic Antitussive Start: 10-26-19 17 TESSALON PERLES 100 MG CAPS Take 1 Every 6 hours as needed BENZONATATE [id number] Nicola LOPEZ benztropine mesylate 0.5 mg oral tablet (1 source) Anticholinergic, Antihistamine take 1 tablet by mouth twice daily Benztropine Mesylate 0.5 MG Oral Tablet 1 bid (0.5 MG) Active BUSPIRONE HCL TABS (1 source) Start: 10-26-19 17 BUSPIRONE HCL TABS as directed BUSPIRONE HCL TABS [id number] Andreia Lechuga LPN cariprazine 1.5 mg oral capsule (1 source) Atypical Antipsychotic take 1 capsule by mouth once daily Vraylar 1.5 MG Oral Capsule 1 qd (1.5 MG) Active lithium carbonate 600 mg oral capsule (1 source) take 1 capsule by mouth once daily at bedtime [address] Carbonate 600 MG Oral Capsule 1 qhs (600 MG) Active METHYLPREDNISOLONE (1 source) Corticosteroid Start: 10-26-19 17 End: 10-31-19 17 MEDROL 4 MG TBPK Take as directed METHYLPREDNISOLONE [id number] Nicola LOPEZ MIRTAZAPINE TABS (1 source) Start: 10-26-19 17 REMERON TABS as directed MIRTAZAPINE TABS [id number] Andreia Lechuga LPN omeprazole 20 mg delayed release oral tablet (2 sources) Proton Pump Inhibitor Start: 03-24-20 18 take 1 tablet by mouth once daily Omeprazole 20 MG Oral Tablet Delayed Release 1 Tablet qd for 0 days Quantity: 30 {Tablet} Refills: 5 Ordered: 24-Mar-2018 Maile Ortez DO, DO, Kathleen Start : 24-Mar-2018 Active Start: 10-25-2016 OMEPRAZOLE TBE C OMEPRAZOLE TBEC [id number] Andreia Lechuga LPN PAROXETINE HCL TABS (1 source) Serotonin Reuptake Inhibitor Start: 10-25-2016 PAXIL TABS as directed PAROXETINE HCL TABS [id number] Andreia Lechuga LPN propranolol hydrochloride 20 mg oral tablet (1 source) beta-Adrenergic Bijan take 1 tablet by mouth twice daily Propranolol HCl 20 MG Oral Tablet 1 bid (20 MG) Active 24 hr venlafaxine 150 mg extended release oral capsule (2 sources) Serotonin and Norepinephrine Reuptake Inhibitor take 1 capsule by mouth every twenty-four hours Venlafaxine HCl ER 150 MG Oral Capsule Extended Release 24 Hour 1 qd (150 MG) Active take 1 capsule by mo uth every twenty-four hours Venlafaxine HCl ER 75 MG Oral Capsule Extended Release 24 Hour 1 qd (75 MG) Active Problems Active Problems Problem Classification Problem Date Documented Da te Episodic/Chronic Abdominal pain (1 source) Epigastric pain; Translations: [Epigastric pain] Onset: 4 Episodic Acute and unspecified renal failure (1 source) Acute kidney failure, unspecified; Translations: [SHARI (acute kidney injury) (HCC)] Onset: 4 Episodic Alcohol-related disorders (1 source) Alcohol abuse, uncomplicated; Translations: [Alcohol abuse, uncomplicated] Onset: 8 Chronic Anxiety disorders (1 source) Anxiety disorder, unspecified; Translations: [Anxiety disorder, unspecified] Onset: 8 Chronic Coagulation and hemorrhagic disorders (1 source) Thrombocytopenia, unspecified; Translations: [Platelets decreased (HCC)] Onset: 3 Chronic Deficiency and other anemia (1 source) Nutritional anemia, unspecified; Translations: [Nutritional anemia, unspecified] Onset: 8 Episodic Disorders of lipid metabolism (1 source) Hyperlipidemia, unspecified; Translations: [Hyperlipidemia with target LDL less than 130] Onset: 9 Chronic Esophageal disorders (2 sources) Gastroesophageal reflux disease; Translations: [Gastro-esophageal reflux disease without esophagitis] Onset: 8 03-24-2018 Chronic Esophageal disorders (1 source) Esophageal disorders Essential hypertension (2 sources) Benign hypertension; Translations: [Essential (primary) hypertension] Onset: 9 03-24-2018 Chronic Intracranial injury (2 sources) Traumatic brain injury with loss of consciousness; Translations: [Diffuse traumatic brain injury with loss of consciousness of unspecified duration, sequela] 03-24-2018 Episodic Lymphadenitis (1 source) Localized enlarged lymph nodes; Translations: [Localized enlarged lymph nodes] Onset: 8 Episodic Mood disorders (4 sources) Bipolar disorder, unspecified; Translations: [Bipolar I disorder] Onset: 8 03-24-2018 Chronic Nausea and vomiting (2 sources) Nausea and vomiting; Translations: [Nausea with vomiting, unspecified] Onset: 4 03-24-2018 Episodic Comment on above: i think related to r x new one for bipolar Nutritional deficiencies (1 source) Unspecified severe protein-calorie malnutrition; Translations: [Unspecified severe protein-calorie malnutrition] Onset: 8 Chronic Other ear and sense organ disorders (2 sources) Impacted cerumen, bilateral; Translations: [Impacted cerumen, bilateral] Onset: 4 03-24-2018 Episodic Comment on above: use debrox over the wkd and rto to irrigate on tuesday Other gastrointestinal disorders (1 source) Diarrhea, unspecified; Translations: [Diarrhea, unspecified] Onset: 8 Episodic Other gastrointestinal disorders (1 source) Diarrhea due to drug; Translations: [Diarrhea due to drug] 03-24-2018 Episodic Comment on above: ?? i thknk related t o new psych med will discuss with him Other lower respiratory disease (1 source) H/O: respiratory disease; Translations: [History of abscess of lung] 03-24-2018 Episodic Comment on above: november 2017 Other male genital disorders (1 source) Impotence; Translations: [Other male erectile dysfunction] 03-24-2018 Chronic Comment on above: will order labs -- b ut probably related to meds-- pschy or even the propanolol Other nervous system disorders (1 source) Other chronic pain; Translations: [Chronic midline low back pain without sciatica] Onset: 4 Chronic Other nutritional; endocrine; and metabolic disorders (1 source) Obesity, unspecified; Translations: [Obesity, unspecified] Onset: 8 Chronic Other nutritional; endocrine; and metabolic disorders (1 source) Body mass index 30+ - obesity; Translations: [BMI 32.0-32.9,adult] 03-24-2018 Chronic Other nutritional; endocrine; and metabolic disorders (1 source) Morbid (severe) obesity due to excess calories; Translations: [Class 3 severe obesity with body mass index (BMI) of 40.0 to 44.9 in adult, unspecified obesity type, unspecified whether serious comorbidity present (HCC)] Onset: 4 Chronic Other nutritional; endocrine; and metabolic disorders (1 source) Body mass index (BMI) 40.0-44.9, adult; Translations: [Class 3 severe obesity with body mass index (BMI) of 40.0 to 44.9 in adult, unspecified obesity type, unspecified whether serious comorbidity present (HCC)] Onset: 4 Chronic Other screening for suspected conditions (not mental disorders or infectious disease) (3 sources) Encounter for screening for diabetes mellitus; Translations: [Unspecified abnormal finding in specimens from other organs, systems and tissues] Onset: 4 Episodic Other upper respiratory infections (1 source) Acute upper respiratory infection, unspecified; Translations: [URI, acute] Onset: 4 Episodic Pneumonia (2 sources) Abscess of lung without pneumonia; Translations: [Abscess of lung with pneumonia] Onset: 8 Episodic Pulmonary heart disease (2 sources) Other pulmonary embolism without acute cor pulmonale; Translations: [H/O: pulmonary embolus] Onset: 8 03-24-2018 Episodic Comment on above: november 2017 - seeing h ematology and no etology foundleft [facility] scan december showed resolution Syncope (1 source) Syncope and collapse; Translations: [Syncope, unspecified syncope type] Onset: 4 Episodic Thyroid disorders (1 source) Hypothyroidism due to medicaments and other exogenous substances; Translations: [Hypothyroidism due to medication] Onset: 2 Chronic Unclassified (2 sources) Unknown / UNK(Unknown) Onset: 7 Unclassified (2 sources) Patient encounter status; Translations: [Therapeutic drug monitoring] 03-24-2018 Unclassified (2 sources) Unclassified (1 source) History of abscess of lung Unclassified (1 source) BMI 32.0-32.9,adult Unclassified (2 sources) Non-smoker; Translations: [Non-smoker] 03-24-2018 Unclassified (1 source) Other male erectile dysfunction Unclassified (2 sources) Medication side effects; Translations: [Medication side effects present] 03-24-2018 Comment on above: shakes from the [facility]-- on propanolol-- Unclassified (1 source) HTN (hypertension), benign Unclassified (1 source) Bipolar 1 disorder Unclassified (1 source) Diarrhea due to drug Unclassified (1 source) Nausea and vomiting in adult Unclassified (1 source) Impacted cerumen, bilateral Unclassified (1 source) History of pulmonary embolism Unclassified (1 source) Chronic midline low back pain without sciatica; Translations: [Chronic midline low back pain without sciatica] Onset: Past or Other Problems Problem Classification Problem Date Documented Da te Episodic/Chronic Acute bronchitis (1 source) Acute bronchitis; Translations: [Acute bronchitis, unspecified] Onset: 10-25-2016 10-25-2016 Episodic Other lower respiratory disease (1 source) Cough; Translations: [Cough] Onset: 10-25-2016 10-25-2016 Episodic Other lower respiratory disease (1 source) Shortness of breath; Translations: [SOB (shortness of breath)] Onset: 06-09-2023 Episodic Other nutritional; endocrine; and metabolic disorders (1 source) Abnormal weight gain; Translations: [Weight gain] Onset: 06-09-2023 Episodic Unclassified (1 source) Disorientation, unspecified; Translations: [Disorientation, unspecified] Onset: 08-22-2017 Episodic Results Test Name Value Interpretation Reference Range Facility [facility] 02-22-2024 [facility] SORAYA BOWSER ([id number]) 1965 M Date Time Provider Department 02/22/24 11:40 AM MÓNICA WALTON [facility] During your visit today, we recorded the following information about you: Pulse Respiration Blood pressure Weight 87/minute 16/minute 142/92 117.9 kg Mónica Walton APRN.CNP 02/22/2024 11:52 AM Signed This is a 58 year old male who presents today with: Patient presents with: Acute Visit: Throwing up HISTORY OF PRESENT ILLNESS: Soraya Bowser is a 58 year old male. Patient presents with: Acute Visit: Throwing up Here in the office for ongoing vomiting. Was seen on 02/10/2024 for URI, at that time referred that coughing was causing him to vomit, triggering his gag reflex. Diagnosed with URI and given Rx for Tessalon Perles. Refers that cough resolved but still vomiting. Vomiting a couple times per week, usually in the morning when first getting up. Will have the dry heaves for about 5 minutes and then resolves. No post nasal drip. Does have history of GERD, taking Protonix BID. Denies any increased heartburn. Will have intermittent epigastric pain at times. Denies any worsening symptoms after meals. History of constipation, last BM 3 days ago. EGD completed In 2013 PAST MEDICAL HISTORY: PAST MEDICAL HISTORY Diagnosis Date SHARI (acute kidney injury) ([facility]) 12/27/2017 Alcohol abuse Anxiety Benign prostatic hyperplasia with urinary frequency 07/27/2023 Bipolar 1 disorder ([facility]) Cellulitis and abscess of unspecified site 10/28/2014 Chronic midline low back pain without sciatica Class 3 severe obesity with body mass index (BMI) of 40.0 to 44.9 in adult, unspecified obesity type, unspecified whether serious comorbidity present ([facility]) 09/2023 Contact dermatitis, unspecified contact dermatitis type, unspecified trigger 09/2023 ED (erectile dysfunction) of organic origin Essential hypertension 07/20/2018 GERD (gastroesophageal reflux disease) HTN (hypertension) Hyperlipidemia with target LDL less than 130 Hypotension, unspecified hypotension type Hypothyroidism due to medication Impingement syndrome of right shoulder 07/26/2013 Left elbow pain Leukocytosis 12/24/2017 Macrocytic anemia 12/24/2017 Platelets decreased ([facility]) Pulmonary emboli ([facility]) 12/2017 Pulmonary embolism, bilateral ([facility]) 12/24/2017 Severe protein-calorie malnutrition ([facility]) 12/24/2017 Shoulder pain, right Syncope, unspecified syncope type Thrombocytosis 12/24/2017 Unintentional weight loss 12/24/2017 PAST SURGICAL HISTORY Procedure Laterality Date COLONOSCOPY FLX DX W/COLLJ SPEC WHEN PFRMD N/A 08/18/2020 Kedar Tariq--[facility]--repeat 10 years PAST SURGICAL HISTORY OF Right 1998 right wrist debridement (s/p infection of pins from repair) PICC LINE INSERTION (PICC TEAM) ([place]) 12/27/2017 ALLERGIES Patient has no known allergies. MEDICATIONS Current Outpatient Medications Medication Sig Fenofibrate (LOFIBRA) 160 mg tablet Take 1 tablet by mouth once daily. levothyroxine (SYNTHROID) 75 mcg tablet Take 1 tablet by mouth once daily. Take on empty stomach. For Thyroid pantoprazole DR (PROTONIX) 40 mg tablet Take 40 mg by mouth two times a day. tamsulosin (FLOMAX) 0.4 mg Take 1 capsule by mouth at bedtime as needed. brexpiprazole (REXULTI) 3 mg tablet Take 1 tablet by mouth once daily. QUEtiapine (SEROQUEL) 100 mg tablet Take 1 tablet by mouth two times a day. vortioxetine (TRINTELLIX) 10 mg tablet Take 1 tablet by mouth once daily. propranolol (INDERAL) 20 mg tablet Take 1 tablet by mouth once daily. (Patient taking differently: Take 20 mg by mouth two times a day.) folic acid 1 mg tablet Take 1 tablet by mouth once daily. sildenafil (VIAGRA) 50 mg tablet Take 1 tablet 30-60 minutes prior to intercourse by mouth. divalproex DR (DEPAKOTE) 500 mg EC tablet Take 2 tablets by mouth once daily. traZODone HCl (DESYREL) 300 mg tablet Take 1 tablet by mouth daily at bedtime. melatonin 10 mg tab Take 1 tablet by mouth daily at bedtime. No current facility-administered medications for this visit. FAMILY HISTORY Adopted: Yes Problem Relation Age of Onset Cancer Father other (congestive heart failure) Maternal Grandmother No Known Problems Half-brother No Known Problems Half-brother Asthma Son No Known Problems Daughter Social History Tobacco Use Smoking status: Never Smokeless tobacco: Never Vaping Use Vaping status: Never Used Substance Use Topics Alcohol use: Yes Comment: Socially Drug use: No REVIEW OF SYSTEMS GENERAL: No weight loss, malaise or fevers/chills HEENT: Negative for frequent or significant headaches, No changes in hearing or vision. NECK: Negative for lumps, goiter, pain and significant neck swelling RESPIRATORY: Negative for cough, hemoptysis, wheezing, dyspnea or shortness of breath CARDIOVASCULAR: Negative for chest pain, leg swellin (more content not included)... [facility] SORAYA BOWSER ([id number]) 1965 M Date Time Provider Department 02/20/24 MAI JAVIER During your visit today, we recorded the following information about you: Marissa Espinal LPN 02/20/2024 4:49 PM Signed Called patient. No answer- left message to call clinic. Patient is scheduled to see Mai Javier PA-C on February 28, 2024 in urology. In notes for reason for appointment states BPH. Taking flomax for increased frequency of urination and weak stream. Has patient been seen elsewhere or just here at [facility]? BPH noted in progress notes 07/26/2022. Marissa Espinal LPN Allergies As of Date: 02/20/2024 (No Known Allergies) Date Reviewed: 02/10/2024 Reviewed by: Vesna Espana LPN - Fully Assessed Reason for Visit: Appointment [186] Prescriptions as of 02/29/2024 - ondansetron orally disintegrating (ZOFRAN ODT) 4 mg disintegrating tablet Take 1 tablet by mouth every 8 hours as needed for nausea/vomiting for up to 10 days. - sucralfate (CARAFATE) 1 gram tablet Take 1 tablet by mouth before meals and at bedtime. - Fenofibrate (LOFIBRA) 160 mg tablet Take 1 tablet by mouth once daily. - levothyroxine (SYNTHROID) 75 mcg tablet Take 1 tablet by mouth once daily. Take on empty stomach. For Thyroid - pantoprazole DR (PROTONIX) 40 mg tablet Take 40 mg by mouth two times a day. - tamsulosin (FLOMAX) 0.4 mg Take 1 capsule by mouth at bedtime as needed. - brexpiprazole (REXULTI) 3 mg tablet Take 1 tablet by mouth once daily. - QUEtiapine (SEROQUEL) 100 mg tablet Take 1 tablet by mouth two times a day. - vortioxetine (TRINTELLIX) 10 mg tablet Take 1 tablet by mouth once daily. - propranolol (INDERAL) 20 mg tablet Take 1 tablet by mouth once daily. - folic acid 1 mg tablet Take 1 tablet by mouth once daily. - sildenafil (VIAGRA) 50 mg tablet Take 1 tablet 30-60 minutes prior to intercourse by mouth. - divalproex DR (DEPAKOTE) 500 mg EC tablet Take 2 tablets by mouth once daily. - traZODone HCl (DESYREL) 300 mg tablet Take 1 tablet by mouth daily at bedtime. - melatonin 10 mg tab Take 1 tablet by mouth daily at bedtime. Meds Comments as of 05/11/2018: Uses Melatonin 10 mg hs Problem List As Of Date 02/20/2024 Noted Resolved Anxiety [F41.9] 02/13/2014 GERD (gastroesophageal reflux disease) [K21.9] 02/06/2015 Alcohol abuse [F10.10] 03/17/2015 Diarrhea [R19.7] 12/22/2016 12/28/2017 Change in bowel habit [R19.4] 12/22/2016 History of esophagogastroduodenoscopy (EGD) [Z9*12/22/2016 Obesity, Class I, BMI 30-34.9 [E66.811] 12/23/2017 Lung abscess (HCC) [J85.2] 12/23/2017 01/03/2018 Bipolar 1 disorder (HCC) [F31.9] 12/24/2017 Elevated blood pressure reading [R03.0] 12/24/2017 01/03/2018 Mediastinal lymphadenopathy [R59.0] 12/24/2017 08/28/2018 Sinus tachycardia [R00.0] 12/24/2017 12/28/2017 Thrombocytosis (HCC) [D75.839] 12/24/2017 08/28/2018 Macrocytic anemia [D53.9] 12/24/2017 Pulmonary embolism, bilateral (HCC) [I26.99] 12/24/2017 08/28/2018 Severe protein-calorie malnutrition (HCC) [E43] 12/24/2017 01/02/2024 Essential hypertension [I10] 07/20/2018 Hyperlipidemia with target LDL less than 130 [E*01/20/2019 Hypothyroidism due to medication [E03.2] 01/21/2022 Benign prostatic hyperplasia with urinary frequ*07/26/2022 Traumatic brain injury with loss of consciousne*10/12/2022 01/02/2024 Platelets decreased (HCC) [D69.6] 10/12/2022 Alcohol dependence with uncomplicated withdrawa*10/12/2022 01/02/2024 Obesity, Class II, BMI 35-39.9 [E66.812] 10/12/2022 Encounter Status:[facility] SORAYA BOWSER ([id number]) 1965 M Date Time Provider Department 02/15/24 MÓNICA WALTON [facility] During your visit today, we recorded the following information about you: Mónica Walton APRN.[facility] 02/15/2024 3:32 PM Signed Can you please call the patient and let him know that I reviewed his lab results. Iron was mildly elevated, this is more than likely due to diet. Mild decreased kidney function. A1c was 5.3, no signs of diabetes. Thyroid, B12, and folate were normal. Triglycerides were very high, I would recommend starting a cholesterol-lowering medication to help improve this. If he is agreeable please let me know. Thank you. Mónica Watlon APRN.Vesna Mac LPN 02/15/2024 3:35 PM Signed TC to pt. LM to call office, ask for triage nurse to get results. GUICHO Larry Donna M, RN 02/15/2024 3:52 PM Signed Spoke with patient. Given message from provider's office. Patient verbalizes understanding. Patient willing to try cholesterol lowering medication. [facility] [place]. Mónica Isaacs RN, APRN.[facility] 02/15/2024 6:42 PM Signed Can you please call the patient and let him know that I sent in a prescription for fenofibrate 160 mg daily. This medication will help lower the triglycerides. I would like to repeat fasting labs in 3 months. Thank you. The following approved medication requests have been transmitted electronically. Requested Prescriptions Signed Prescriptions Disp Refills Fenofibrate (LOFIBRA) 160 mg tablet 30 tablet 11 Sig: Take 1 tablet by mouth once daily. Authorizing Provider: MÓNICA WALTON APRN.Vesna Mac LPN 02/15/2024 6:46 PM Signed Patient notified of results, verbalizes understanding of instructions. Vesna Espana LPN Allergies As of Date: 02/15/2024 (No Known Allergies) Date Reviewed: 02/10/2024 Reviewed by: Vesna Espana LPN - Fully Assessed Reason for Visit: Results [95] Cmt: Labs Primary Visit Diagnosis:High triglycerides [E78.1] Order(s):Fenofibrate (LOFIBRA) 160 mg tabletTake 1 tablet by mouth once daily.Disp: 30 tabletRfl: 11 COMPREHENSIVE METABOLIC PANEL [SQCMP] Order #: [id number] FUTURE LIPID PANEL BASIC [SQLIPB] Order #: [id number] FUTURE Prescriptions as of 02/15/2024 - Fenofibrate (LOFIBRA) 160 mg tablet Take 1 tablet by mouth once daily. - benzonatate (TESSALON PERLES) 100 mg capsule Take 1 capsule by mouth three times a day as needed for cough for up to 10 days. - levothyroxine (SYNTHROID) 75 mcg tablet Take 1 tablet by mouth once daily. Take on empty stomach. For Thyroid - pantoprazole DR (PROTONIX) 40 mg tablet Take 40 mg by mouth two times a day. - tamsulosin (FLOMAX) 0.4 mg Take 1 capsule by mouth at bedtime as needed. - brexpiprazole (REXULTI) 3 mg tablet Take 1 tablet by mouth once daily. - QUEtiapine (SEROQUEL) 100 mg tablet Take 1 tablet by mouth two times a day. - vortioxetine (TRINTELLIX) 10 mg tablet Take 1 tablet by mouth once daily. - propranolol (INDERAL) 20 mg tablet Take 1 tablet by mouth once daily. - folic acid 1 mg tablet Take 1 tablet by mouth once daily. - sildenafil (VIAGRA) 50 mg tablet Take 1 tablet 30-60 minutes prior to intercourse by mouth. - divalproex DR (DEPAKOTE) 500 mg EC tablet Take 2 tablets by mouth once daily. - traZODone HCl (DESYREL) 300 mg tablet Take 1 tablet by mouth daily at bedtime. - melatonin 10 mg tab Take 1 tablet by mouth daily at bedtime. Meds Comments as of 05/11/2018: Uses Melatonin 10 mg hs Problem List As Of Date 02/15/2024 Noted Resolved Anxiety [F41.9] 02/13/2014 GERD (gastroesophageal reflux disease) [K21.9] 02/06/2015 Alcohol abuse [F10.10] 03/17/2015 Diarrhea [R19.7] 12/22/2016 12/28/2017 Change in bowel habit [R19.4] 12/22/2016 History of esophagogastroduodenoscopy (EGD) [Z9*12/22/2016 Obesity, Class I, BMI 30-34.9 [E66.9] 12/23/2017 Lung abscess (HCC) [J85.2] 12/23/2017 01/03/2018 Bipolar 1 disorder (HCC) [F31.9] 12/24/2017 Elevated blood pressure reading [R03.0] 12/24/2017 01/03/2018 Mediastinal lymphadenopathy [R59.0] 12/24/2017 08/28/2018 Sinus tachycardia [R00.0] 12/24/2017 12/28/2017 Thrombocytosis (HCC) [D75.839] 12/24/2017 08/28/2018 Macrocytic anemia [D53.9] 12/24/2017 Pulmonary embolism, bilateral (HCC) [I26.99] 12/24/2017 08/28/2018 Severe protein-calorie malnutrition (HCC) [E43] 12/24/2017 01/02/2024 Essential hypertension [I10] 07/20/2018 Hyperlipidemia with target LDL less than 130 [E*01/20/2019 Hypothyroidism due to medication [E03.2] 01/21/2022 Benign prostatic hyperplasia with urinary frequ*07/26/2022 Traumatic brain injury with loss of consciousne*10/12/2022 01/02/2024 Platelets decreased (HCC) [D69.6] 10/12/2022 Alcohol dependence with uncomplicated withdrawa*10/12/2022 01/02/2024 Obesity, Class II, BMI 3 (more content not included)... Normal [facility] CBC W Auto Differential pane l (Bld)on 02-10-2024 Basophils (Bld) [#/Vol] 0.13 10*3/uL High <0.11 [facility] Comment on above: Order Comment: Speci men Type: BLOOD SPECIMENOrdering Facility: [facility] Address: [address] [place] [address] Performed By: #### 5 7021-8 ####[facility] LABCLIA [id number] [place] [address] [place] Basophils/100 WBC (Bld) 1.9 % Normal [facility] Comment on above: Order Comment: Speci men Type: BLOOD SPECIMENOrdering Facility: [facility] Address: [address] [place] [address] Performed By: #### 5 7021-8 ####[facility] LABCLIA [id number] [place] [address] [place] Differential cell count method Nom (Bld) Auto Normal [facility] Comment on above: Order Comment: Speci men Type: BLOOD SPECIMENOrdering Facility: [facility] Address: [address] [place] [address] Performed By: #### 5 7021-8 ####[facility] LABCLIA [id number] [place] [address] [place] Eosinophils (Bld) [#/Vol] 0.18 10*3/uL Normal <0.46 [facility] Comment on above: Order Comment: Speci men Type: BLOOD SPECIMENOrdering Facility: [facility] Address: [address] [place] [address] Performed By: #### 5 7021-8 ####[facility] LABCLIA [id number] [place] [address] [place] Eosinophils/100 WBC (Bld) 2.6 % Normal [facility] Comment on above: Order Comment: Speci men Type: BLOOD SPECIMENOrdering Facility: [facility] Address: [address] [place] [address] Performed By: #### 5 7021-8 ####[facility] LABIA [id number] [place] [address] [place] Erythrocyte distribution width (RBC) [Ratio] 13.6 % Normal 11.5-15.0 [facility] Comment on above: Order Comment: Speci men Type: BLOOD SPECIMENOrdering Facility: [facility] Address: [address] [place] [address] Performed By: #### 5 7021-8 ####[facility] LABIA [id number] [place] [address] [place] Hematocrit (Bld) [Volume fraction] 48.1 % Normal 39.0-51.0 [facility] Comment on above: Order Comment: Speci men Type: BLOOD SPECIMENOrdering Facility: [facility] Address: [address] [place] [address] Performed By: #### 5 7021-8 ####[facility] LABIA [id number] [place] [address] [place] Hemoglobin (Bld) [Mass/Vol] 16.9 g/dL Normal 13.0-17.0 [facility] Comment on above: Order Comment: Speci men Type: BLOOD SPECIMENOrdering Facility: [facility] Address: [address] [place] [address] Performed By: #### 5 7021-8 ####[facility] LABIA [id number] [place] [address] [place] Immature granulocytes (Bld) [#/Vol] 0.03 10*3/uL Normal <0.10 [facility] Comment on above: Order Comment: Speci men Type: BLOOD SPECIMENOrdering Facility: [facility] Address: [address] [place] [address] Performed By: #### 5 7021-8 ####[facility] LABCLIA [id number] [place] [address] [place] Immature granulocytes/100 WBC (Bld) 0.4 % Normal [facility] Comment on above: Order Comment: Speci men Type: BLOOD SPECIMENOrdering Facility: [facility] Address: [address] [place] [address] Performed By: #### 5 7021-8 ####[facility] LABIA [id number] [place] [address] [place] Lymphocytes (Bld) [#/Vol] 2.21 10*3/uL Normal 1.00-4.00 [facility] Comment on above: Order Comment: Speci men Type: BLOOD SPECIMENOrdering Facility: [facility] Address: [address] [place] [address] Performed By: #### 5 7021-8 ####[facility] LABIA [id number] [place] [address] [place] Lymphocytes/100 WBC (Bld) 32.3 % Normal [facility] Comment on above: Order Comment: Speci men Type: BLOOD SPECIMENOrdering Facility: [facility] Address: [address] [place] [address] Performed By: #### 5 7021-8 ####[facility] [id number] [place] [address] [place] MCH (RBC) [Entitic mass] 35.6 pg High 26.0-34.0 [facility] Comment on above: Order Comment: Speci men Type: BLOOD SPECIMENOrdering Facility: [facility] Address: [address] [place] [address] Performed By: #### 5 7021-8 ####[facility] LABIA [id number] [place] [address] [place] MCHC (RBC) [Mass/Vol] 35.1 g/dL Normal 30.5-36.0 [facility] Comment on above: Order Comment: Speci men Type: BLOOD SPECIMENOrdering Facility: [facility] Address: [address] [place] [address] Result Comment: Cold Agglutinin, Incubated at 37 degrees. Performed By: #### 5 7021-8 ####[facility] LABCLIA [id number] [place] [address] [place] MCV (RBC) [Entitic vol] 101.3 fL High 80.0-100.0 [facility] Comment on above: Order Comment: Speci men Type: BLOOD SPECIMENOrdering Facility: [facility] Address: [address] [place] [address] Performed By: #### 5 7021-8 ####[facility] LABCLIA [id number] [place] [address] [place] Monocytes (Bld) [#/Vol] 0.58 10*3/uL Normal <0.87 [facility] Comment on above: Order Comment: Speci men Type: BLOOD SPECIMENOrdering Facility: [facility] Address: [address] [place] [address] Performed By: #### 5 7021-8 ####[facility] LABCLIA [id number] [place] [address] [place] Monocytes/100 WBC (Bld) 8.5 % Normal [facility] Comment on above: Order Comment: Speci men Type: BLOOD SPECIMENOrdering Facility: [facility] Address: [address] [place] [address] Performed By: #### 5 7021-8 ####[facility] LABCLIA [id number] [place] [address] [place] Neutrophils (Bld) [#/Vol] 3.71 10*3/uL Normal 1.45-7.50 [facility] Comment on above: Order Comment: Speci men Type: BLOOD SPECIMENOrdering Facility: [facility] Address: [address] [place] [address] Performed By: #### 5 7021-8 ####[facility] LABIA [id number] [place] [address] [place] Neutrophils/100 WBC (Bld) 54.3 % Normal [facility] Comment on above: Order Comment: Speci men Type: BLOOD SPECIMENOrdering Facility: [facility] Address: [address] [place] [address] Performed By: #### 5 7021-8 ####[facility] LABIA [id number] [place] [address] [place] Nucleated RBC (Bld) [#/Vol] 10*3/uL Normal <0.01 [facility] Comment on above: Order Comment: Speci men Type: BLOOD SPECIMENOrdering Facility: [facility] Address: [address] [place] [address] Performed By: #### 5 7021-8 ####[facility] LABIA [id number] [place] [address] [place] Nucleated RBC/100 WBC (Bld) [Ratio] 0.0 /100 WBC Normal [facility] Comment on above: Order Comment: Speci men Type: BLOOD SPECIMENOrdering Facility: [facility] Address: [address] [place] [address] Performed By: #### 5 7021-8 ####[facility] LABIA [id number] [place] [address] [place] Platelet mean volume (Bld) [Entitic vol] 11.2 fL Normal 9.0-12.7 [facility] Comment on above: Order Comment: Speci men Type: BLOOD SPECIMENOrdering Facility: [facility] Address: [address] [place] [address] Performed By: #### 5 7021-8 ####[facility] LABIA [id number] [place] [address] [place] Platelets (Bld) [#/Vol] 162 10*3/uL Normal 150-400 [facility] Comment on above: Order Comment: Speci men Type: BLOOD SPECIMENOrdering Facility: [facility] Address: [address] [place] [address] Performed By: #### 5 7021-8 ####[facility] LABIA [id number] [place] [address] [place] RBC (Bld) [#/Vol] 4.75 10*6/uL Normal 4.20-6.00 [facility] Comment on above: Order Comment: Speci men Type: BLOOD SPECIMENOrdering Facility: [facility] Address: [address] [place] [address] Performed By: #### 5 7021-8 ####[facility] LABIA [id number] [place] [address] [place] WBC (Bld) [#/Vol] 6.84 10*3/uL Normal 3.70-11.00 [facility] Comment on above: Order Comment: Speci men Type: BLOOD SPECIMENOrdering Facility: [facility] Address: [address] [place] [address] Result Comment: Resu lts checked and verified.No clot detected. Performed By: #### 5 7021-8 ####[facility] LABIA [id number] [place] [address] [place] CNOVon 02-10-2024 CNOV Office Visit (FAMPWS ) SORAYA BOWSER ([id number]) 1965 M Date Time Provider Department 02/10/24 2:20 PM MÓNICA WALTON During your visit today, we recorded the following information about you: Temperature Pulse Respiration Blood pressure 98.7 degrees 93/minute 16/minute 137/82 Weight 116.6 kg Mónica Walton APRN.[employer]ATOR 02/10/2024 2:02 PM Signed Covid/Flu/Rsv pending Continue supportive care at home Stay well hydrated May use Tessalon Perles as needed for cough, or any other OTC cold and cough medications as needed Follow up pending test results or sooner as needed. Mónica Walton APRN.CNP 02/10/2024 2:25 PM Signed This is a 58 year old male who presents today with: Patient presents with: Acute Visit: cough and vomiting HISTORY OF PRESENT ILLNESS: Soraya Bowser is a 58 year old male. Patient presents with: Acute Visit: cough and vomiting Here in the office for cough and vomiting. Symptoms started on Tuesday. Will cough very hard which triggers his gag reflex causing him to vomit. No vomiting since Tuesday. Cough is dry. On going fatigue. No sore throat, ear pain, fever, or chills. Had his labs completed recently, CBC showed RBC 4.10, MCV 102.2, MCH 35.6. Refers that he has had ongoing fatigue for some time. PAST MEDICAL HISTORY: PAST MEDICAL HISTORY Diagnosis Date SHARI (acute kidney injury) (HCC) 12/27/2017 Alcohol abuse Anxiety Benign prostatic hyperplasia with urinary frequency 07/27/2023 Bipolar 1 disorder (HCC) Cellulitis and abscess of unspecified site 10/28/2014 Chronic midline low back pain without sciatica Essential hypertension 07/20/2018 GERD (gastroesophageal reflux disease) Hypotension, unspecified hypotension type Hypothyroidism due to medication Impingement syndrome of right shoulder 07/26/2013 Left elbow pain Leukocytosis 12/24/2017 Macrocytic anemia 12/24/2017 Platelets decreased (HCC) Pulmonary emboli (HCC) 12/2017 Pulmonary embolism, bilateral (HCC) 12/24/2017 Severe protein-calorie malnutrition (HCC) 12/24/2017 Shoulder pain, right Syncope, unspecified syncope type Thrombocytosis 12/24/2017 Unintentional weight loss 12/24/2017 PAST SURGICAL HISTORY Procedure Laterality Date COLONOSCOPY FLX DX W/COLLJ SPEC WHEN PFRMD N/A 08/18/2020 Kedar Tariq--[facility]--repeat 10 years PAST SURGICAL HISTORY OF Right 1998 right wrist debridement (s/p infection of pins from repair) PICC LINE INSERTION (PICC TEAM) ([place]) 12/27/2017 ALLERGIES Patient has no known allergies. MEDICATIONS Current Outpatient Medications Medication Sig levothyroxine (SYNTHROID) 75 mcg tablet Take 1 tablet by mouth once daily. Take on empty stomach. For Thyroid pantoprazole DR (PROTONIX) 40 mg tablet Take 40 mg by mouth two times a day. tamsulosin (FLOMAX) 0.4 mg Take 1 capsule by mouth at bedtime as needed. brexpiprazole (REXULTI) 3 mg tablet Take 1 tablet by mouth once daily. QUEtiapine (SEROQUEL) 100 mg tablet Take 1 tablet by mouth two times a day. vortioxetine (TRINTELLIX) 10 mg tablet Take 1 tablet by mouth once daily. propranolol (INDERAL) 20 mg tablet Take 1 tablet by mouth once daily. (Patient taking differently: Take 20 mg by mouth two times a day.) folic acid 1 mg tablet Take 1 tablet by mouth once daily. sildenafil (VIAGRA) 50 mg tablet Take 1 tablet 30-60 minutes prior to intercourse by mouth. divalproex DR (DEPAKOTE) 500 mg EC tablet Take 2 tablets by mouth once daily. traZODone HCl (DESYREL) 300 mg tablet Take 1 tablet by mouth daily at bedtime. melatonin 10 mg tab Take 1 tablet by mouth daily at bedtime. No current facility-administered medications for this visit. FAMILY HISTORY Adopted: Yes Problem Relation Age of Onset Cancer Father other (congestive heart failure) Maternal Grandmother No Known Problems Half-brother No Known Problems Half-brother Asthma Son No Known Problems Daughter Social History Tobacco Use Smoking status: Never Smokeless tobacco: Never Vaping Use Vaping status: Never Used Substance Use Topics Alcohol use: Yes Comment: Socially Drug use: No REVIEW OF SYSTEMS GENERAL: +Fatigue HEENT: Negative for frequent or significant headaches, No changes in hearing or vision. NECK: Negative for lumps, goiter, pain and significant neck swelling RESPIRATORY: + Cough CARDIOVASCULAR: Negative for chest pain, leg swelling, orthopnea, or palpitations GI: + vomiting : No history of dysuria, frequency or incontinence MUSCULOSKELETAL: Negative for joint pain or swelling. SKIN: Negative for lesions, rash, and itching ENDOCRINE: Negative for cold or heat intolerance, polyuria, polydipsia and goiter NEURO: No history of headaches, syncope, paralysis, seizures or tremors MOOD: Negative for depression, anxiety, or suicidal ideation. EXAM: BP 137/82 Pulse 93 Temp 37.1 ?C (98.7 ?F) Resp 16 Wt 116.6 (more content not included)... Normal [facility] COVID AND INFLUENZA A/B AND RSV PCR, ROUTINEon 02-10-2024 SARS-CoV-2 (COVID-19) RNA FAYE+probe Ql (Unsp spec) SARS-COV-2 (AGENT OF COVID-19) RNA: Not detected INFLUENZA A RNA: Not detected INFLUENZA B RNA: Not detected RESPIRATORY SYNCYTIAL VIRUS (RSV) RNA: Not detected Normal [facility] Comment on above: Performed By: #### C VFLRS ####[facility] LABCLIA [id number] [place] [address] [place] Cholesterol in LDL Direct as say [Mass/Vol]on 02-10-2024 Cholesterol in LDL [Mass/Vol] 61 mg/dL Normal <100 [facility] Comment on above: Order Comment: Speci men Type: BLOOD SPECIMENOrdering Facility: [facility] Address: [address] [place] [address] Result Comment: <100 mg/dL, Optimal 100-129 mg/dL, Near optimal/above optimal 130-159 mg/dL, Borderline high 160-189 mg/dL, High >189 mg/dL, Very high Secondary prevention optimal LDL Cholesterol levels are recommended to be < 70 mg/dL Performed By: #### 3 016-3, 2276-4, 72070-9, 40747-6, 78754-9 ####[facility] LABCLIA [id number] [place] [address] [place] Cholesterol in VLDL [Mass/Vol] 132 mg/dL High <30 [facility] Comment on above: Order Comment: Speci men Type: BLOOD SPECIMENOrdering Facility: [facility] Address: [address] [place] [address] Performed By: #### 3 016-3, 2276-4, 23078-3, 97362-5, 73387-3 ####[facility] LABCLIA [id number] [place] [address] [place] Comprehensive metabolic 2000 panelon 02-10-2024 Albumin [Mass/Vol] 4.2 g/dL Normal 3.9-4.9 [facility] Comment on above: Order Comment: Speci men Type: BLOOD SPECIMEN [facility] Address: [address] [place] [address] Performed By: #### 5 5454-3 #### [facility] CLIA [id number] [address] [place] [address] [place] ALP [Catalytic activity/Vol] 83 U/L Normal 38-113 [facility] Comment on above: Order Comment: Speci men Type: BLOOD SPECIMEN [facility] Address: [address] [place] [address] Performed By: #### 5 5454-3 #### [facility] CLIA [id number] [address] [place] [address] [place] ALT [Catalytic activity/Vol] 26 U/L Normal 10-54 [facility] Comment on above: Order Comment: Speci men Type: BLOOD SPECIMEN [facility] Address: [address] [place] [address] Performed By: #### 5 5454-3 #### [facility] CLIA [id number] [address] [place] [address] [place] Anion gap [Moles/Vol] 21 mmol/L High 8-15 [facility] Comment on above: Order Comment: Speci men Type: BLOOD SPECIMEN [facility] Address: [address] [place] [address] Performed By: #### 5 5454-3 #### [facility] CLIA [id number] [id number] [address] [place] AST [Catalytic activity/Vol] 63 U/L High 14-40 [facility] Comment on above: Order Comment: Speci men Type: BLOOD SPECIMEN [facility] Address: [address] [place] [address] Performed By: #### 5 5454-3 #### [facility] CLIA [id number] [address] [place] [address] [place] Bilirubin [Mass/Vol] 1.0 mg/dL Normal 0.2-1.3 [facility] Comment on above: Order Comment: Speci men Type: BLOOD SPECIMEN [facility] Address: [address] [place] [address] Performed By: #### 5 5454-3 #### [facility] CLIA [id number] [address] [place] [address] [place] Calcium [Mass/Vol] 8.7 mg/dL Normal 8.5-10.2 [facility] Comment on above: Order Comment: Speci men Type: BLOOD SPECIMEN [facility] Address: [address] [place] [address] Performed By: #### 5 5454-3 #### [facility] CLIA [id number] [address] [place] [address] [place] Chloride [Moles/Vol] 97 mmol/L Low 98-107 [facility] Comment on above: Order Comment: Speci men Type: BLOOD SPECIMEN [facility] Address: [address] [place] [address] Performed By: #### 5 5454-3 #### [facility] CLIA [id number] [address] [place] [address] [place] CO2 [Moles/Vol] 23 mmol/L Normal 22-30 [facility] Comment on above: Order Comment: Speci men Type: BLOOD SPECIMEN [facility] Address: [address] [place] [address] Performed By: #### 5 5454-3 #### [facility] CLIA [id number] [address] [place] [address] [place] Creatinine [Mass/Vol] 1.38 mg/dL High 0.73-1.22 [facility] Comment on above: Order Comment: Davion ewing Type: BLOOD SPECIMEN [facility] Address: [address] [place] [address] Performed By: #### 5 5454-3 #### [facility] CLIA [id number] [address] [place] [address] [place] Creatinine and Glomerular filtration rate.predicted panel (S/P/Bld) 59 mL/min/1.73m??? Low >=60 [facility] Comment on above: Order Comment: Davion ewing Type: BLOOD SPECIMEN [facility] Address: [address] [place] [address] Result Comment: Anai mated Glomerular Filtration Rate (eGFR) is calculated using the 2020 CKD-EPI creatinine equation. This equation utilizes serum creatinine, sex, and age as parameters. The creatinine assay has traceable calibration to isotope dilution-mass spectrometry. Refer to KDIGO guidelines for clinical interpretation. In patients with unstable renal function, e.g. those with acute kidney injury, the eGFR may not accurately reflect actual GFR. Performed By: #### 5 5454-3 #### [facility] CLIA [id number] [address] [place] [address] [place] Glucose [Mass/Vol] 90 mg/dL Normal 74-99 [facility] Comment on above: Order Comment: Davion ewing Type: BLOOD SPECIMEN [facility] Address: [address] [place] [address] Result Comment: The [place] [employer] (ADA) provides guidance for cutoff values for fasting glucose and random glucose. The ADA defines fasting as no caloric intake for at least 8 hours. Fasting plasma glucose results between 100 to 125 mg/dL indicate increased risk for diabetes (prediabetes). Fasting plasma glucose results greater than or equal to 126 mg/dL meet the criteria for diagnosis of diabetes. In the absence of unequivocal hyperglycemia, results should be confirmed by repeat testing. In a patient with classic symptoms of hyperglycemia or hyperglycemic crisis, random plasma glucose results greater than or equal to 200 mg/dL meet the criteria for diagnosis of diabetes. Reference: Standards of Medical Care in Diabetes 2016, [place] [employer]. Diabetes Care. 2016.39(Suppl 1). Performed By: #### 5 5454-3 #### [facility] CLIA [id number] [address] [place] [address] [place] Potassium [Moles/Vol] 4.8 mmol/L Normal 3.7-5.1 [facility] Comment on above: Order Comment: Speci men Type: BLOOD SPECIMEN Ordering Facility: [facility] Address: [address] [place] [address] Performed By: #### 5 5454-3 #### [facility] CLIA [id number] [address] [place] [address] [place] Protein [Mass/Vol] 6.9 g/dL Normal 6.3-8.0 [facility] Comment on above: Order Comment: Speci men Type: BLOOD SPECIMEN Ordering Facility: [facility] Address: [address] [place] [address] Performed By: #### 5 5454-3 #### [facility] CLIA [id number] [address] [place] [address] [place] Sodium [Moles/Vol] 141 mmol/L Normal 136-144 [facility] Comment on above: Order Comment: Speci men Type: BLOOD SPECIMEN Ordering Facility: [facility] Address: [address] [place] [address] Performed By: #### 5 5454-3 #### [facility] CLIA [id number] [address] [place] [address] [place] Urea nitrogen [Mass/Vol] 16 mg/dL Normal 9-24 [facility] Comment on above: Order Comment: Speci men Type: BLOOD SPECIMEN Ordering Facility: [facility] Address: [address] [place] [address] Performed By: #### 5 5454-3 #### [facility] CLIA [id number] [address] [place] [address] [place] Ferritin SerPl-mCncon 2023 Ferritin [Mass/Vol] 456.0 ng/mL Normal 30.3-565.7 [facility] Comment on above: Order Comment: Speci men Type: BLOOD SPECIMENOrdering Facility: [facility] Address: [address] [place] [address] Performed By: #### 3 016-3, 2276-4, 11586-2, 96508-5, 39215-9 ####[facility] [id number] [place] [address] [place] Folate SerPl-mCncon 02-10-20 Folate [Mass/Vol] 15.8 ng/mL Normal >4.7 [facility] Comment on above: Order Comment: Speci men Type: BLOOD SPECIMEN Ordering Facility: [facility] Address: [address] [place] [address] Performed By: #### 5 5454-3 #### [facility] CLIA [id number] [address] [place] [address] [place] HbA1c (Bld)on 02-10-2024 Average glucose Estimated from glycated hemoglobin (Bld) [Mass/Vol] 105 mg/dL Normal [facility] Comment on above: Order Comment: Speci men Type: BLOOD SPECIMEN Ordering Facility: [facility] Address: [address] [place] [address] Result Comment: eAG: (Estimated average glucose) is a calculated value from HgbA1c and is litigation claim representative of the average blood glucose level in the last 2-3 month period. Performed By: #### 5 5454-3 #### [facility] CLIA [id number] [address] [place] [address] [place] HbA1c (Bld) [Mass fraction] 5.3 % Normal 4.3-5.6 [facility] Comment on above: Order Comment: Davion ewing Type: BLOOD SPECIMEN Ordering Facility: [facility] Address: [address] [place] [address] Result Comment: [place] Diabetes Association guidelines indicate that patients with HgbA1c in the range 5.7-6.4% are at increased risk for development of diabetes, and intervention by lifestyle modification may be beneficial. HgbA1c greater or equal to 6.5% is considered diagnostic of diabetes. Performed By: #### 5 5454-3 #### [facility] CLIA [id number] [address] [place] [address] [place] Iron and Iron binding capaci ty panelon 02-10-2024 Iron [Mass/Vol] 205 ug/dL High 41-186 [facility] Comment on above: Order Comment: Davion ewing Type: BLOOD SPECIMEN Ordering Facility: [facility] Address: [address] [place] [address] Performed By: #### 5 5454-3 #### [facility] CLIA [id number] [address] [place] [address] [place] Iron binding capacity [Mass/Vol] 353 ug/dL Normal 232-386 [facility] Comment on above: Order Comment: Davion ewing Type: BLOOD SPECIMEN Ordering Facility: [facility] Address: [address] [place] [address] Performed By: #### 5 5454-3 #### [facility] CLIA [id number] [address] [place] [address] [place] Iron/TIBC [Molar ratio] 58.1 % High 15.0-57.0 [facility] Comment on above: Order Comment: Davion men Type: BLOOD SPECIMEN Ordering Facility: [facility] Address: [address] [place] [address] Performed By: #### 5 5454-3 #### [facility] CLIA [id number] [address] [place] [address] [place] Lipid 1996 panelon 4 Cholesterol [Mass/Vol] 224 mg/dL High <200 [facility] Comment on above: Order Comment: Speci men Type: BLOOD SPECIMEN Ordering Facility: [facility] Address: [address] [place] [address] Result Comment: <200 mg/dL, Desirable 200-239 mg/dL, Borderline high >239 mg/dL, High Performed By: #### 5 5454-3 #### [facility] CLIA [id number] [address] [place] [address] [place] Cholesterol in HDL [Mass/Vol] 31 mg/dL Low >39 [facility] Comment on above: Order Comment: Speci men Type: BLOOD SPECIMEN Ordering Facility: [facility] Address: [address] [place] [address] Result Comment: 40-5 9 mg/dL, Acceptable >59 mg/dL, High: Negative risk factor for coronary heart disease <40 mg/dL, Low: Positive risk factor for coronary heart disease Performed By: #### 5 5454-3 #### [facility] CLIA [id number] [address] [place] [address] [place] Cholesterol in LDL [Mass/Vol] Normal [facility] Comment on above: Order Comment: Speci men Type: BLOOD SPECIMEN Ordering Facility: [facility] Address: [address] [place] [address] Result Comment: Unab le to calculate due to increased Triglycerides. See LDL-Chol, Direct. Performed By: #### 5 5454-3 #### [facility] CLIA [id number] [address] [place] [address] [place] Cholesterol in LDL/Cholesterol in HDL [Mass ratio] Normal [facility] Comment on above: Order Comment: Speci men Type: BLOOD SPECIMEN Ordering Facility: [facility] Address: [address] [place] [address] Result Comment: Unab le to calculate due to elevated Triglycerides. Reference: 1. National Cholesterol Education Program ATP III Guideline At-A-Glance Quick Desk Reference: National Heart, Lung, and Blood [place]. National Institutes of Health. 2001: NIH Publication No. 01-3305. 2. An International Atherosclerosis Society position paper: global recommendations for the management of dyslipidemia: executive summary, Atherosclerosis. 2014: 232(2):410-413. Performed By: #### 5 5454-3 #### [facility] CLIA [id number] [address] [place] [address] [place] Cholesterol in VLDL [Mass/Vol] Normal [facility] Comment on above: Order Comment: Speci men Type: BLOOD SPECIMEN Ordering Facility: [facility] Address: [address] [place] [address] Result Comment: Unab le to calculate due to increased Triglycerides. See LDL-Chol, Direct. Performed By: #### 5 5454-3 #### [facility] CLIA [id number] [address] [place] [address] [place] Cholesterol non HDL [Mass/Vol] 193 mg/dL High <130 [facility] Comment on above: Order Comment: Davion ewing Type: BLOOD SPECIMEN Ordering Facility: [facility] Address: [address] [place] [address] Result Comment: <130 mg/dL, Optimal 130-159 mg/dL, Near optimal/above optimal 160-189 mg/dL, Borderline high 190-219 mg/dL, High >219 mg/dL, Very high Secondary prevention optimal non HDL Cholesterol levels are recommended to be <100 mg/dL Performed By: #### 5 5454-3 #### [facility] CLIA [id number] [address] [place] [address] [place] Cholesterol.total/ Cholesterol in HDL [Mass ratio] 7.23 {ratio} High <5.10 [facility] Comment on above: Order Comment: Davion ewing Type: BLOOD SPECIMEN Ordering Facility: [facility] Address: [address] [place] [address] Performed By: #### 5 5454-3 #### [facility] CLIA [id number] [address] [place] [address] [place] FASTING TIME 10 hrs Normal [facility] Comment on above: Order Comment: Speci men Type: BLOOD SPECIMEN Ordering Facility: [facility] Address: [address] [place] [address] Performed By: #### 5 5454-3 #### [facility] CLIA [id number] [address] [place] [address] [place] Triglyceride [Mass/Vol] 850 mg/dL High <150 [facility] Comment on above: Order Comment: Speci men Type: BLOOD SPECIMEN Ordering Facility: [facility] Address: [address] [place] [address] Result Comment: <150 mg/dL, Normal 150-199 mg/dL, Borderline high 200-499 mg/dL, High >499 mg/dL, Very high Performed By: #### 5 5454-3 #### [facility] CLIA [id number] [address] [place] [address] [place] TSH SerPl-aCncon 02-10-2024 TSH Qn 2.140 m[IU]/L Normal 0.270-4.200 [facility] Comment on above: Order Comment: Speci men Type: BLOOD SPECIMENOrdering Facility: [facility] Address: [address] [place] [address] Performed By: #### 3 016-3, 2276-4, 92443-0, 97399-4, 49899-3 ####[facility] [id number] [place] [address] [place] Vit B12 SerPl-mCncon 024 Cobalamin (Vitamin B12) [Mass/Vol] 368 pg/mL Normal 232-1245 [facility] Comment on above: Order Comment: Speci men Type: BLOOD SPECIMEN Ordering Facility: [facility] Address: [address] [place] [address] Performed By: #### 5 5454-3 #### [facility] CLIA [id number] [address] [place] [address] [place] CBC panel Auto (Bld)on 01-25 Erythrocyte distribution width (RBC) [Ratio] 14.0 % Normal 11.5-15.0 [facility] Comment on above: Order Comment: Speci men Type: BLOOD SPECIMENOrdering Facility: [facility] Address: [address] [place] [address] Performed By: #### 5 8410-2 ####[facility] [id number] [place] [address] [place] Hematocrit (Bld) [Volume fraction] 41.9 % Normal 39.0-51.0 [facility] Comment on above: Order Comment: Speci men Type: BLOOD SPECIMENOrdering Facility: [facility] Address: [address] [place] [address] Performed By: #### 5 8410-2 ####[facility] [id number] [place] [address] [place] Hemoglobin (Bld) [Mass/Vol] 14.6 g/dL Normal 13.0-17.0 [facility] Comment on above: Order Comment: Speci men Type: BLOOD SPECIMENOrdering Facility: [facility] Address: [address] [place] [address] Performed By: #### 5 8410-2 ####[facility] [id number] [place] [address] [place] MCH (RBC) [Entitic mass] 35.6 pg High 26.0-34.0 [facility] Comment on above: Order Comment: Speci men Type: BLOOD SPECIMENOrdering Facility: [facility] Address: [address] [place] [address] Performed By: #### 5 8410-2 ####[facility] [id number] [place] [address] [place] MCHC (RBC) [Mass/Vol] 34.8 g/dL Normal 30.5-36.0 [facility] Comment on above: Order Comment: Speci men Type: BLOOD SPECIMENOrdering Facility: [facility] Address: [address] [place] [address] Result Comment: Cold Agglutinin, Incubated at 37 degrees.Reviewed Performed By: #### 5 8410-2 ####[facility] [id number] [place] [address] [place] MCV (RBC) [Entitic vol] 102.2 fL High 80.0-100.0 [facility] Comment on above: Order Comment: Speci men Type: BLOOD SPECIMENOrdering Facility: [facility] Address: [address] [place] [address] Performed By: #### 5 8410-2 ####[facility] [id number] [place] [address] [place] Nucleated RBC (Bld) [#/Vol] 10*3/uL Normal <0.01 [facility] Comment on above: Order Comment: Speci men Type: BLOOD SPECIMENOrdering Facility: [facility] Address: [address] [place] [address] Performed By: #### 5 8410-2 ####[facility] [id number] [place] [address] [place] Platelet mean volume (Bld) [Entitic vol] 11.8 fL Normal 9.0-12.7 [facility] Comment on above: Order Comment: Speci men Type: BLOOD SPECIMENOrdering Facility: [facility] Address: [address] [place] [address] Performed By: #### 5 8410-2 ####[facility] [id number] [place] [address] [place] Platelets (Bld) [#/Vol] 175 10*3/uL Normal 150-400 [facility] Comment on above: Order Comment: Speci men Type: BLOOD SPECIMENOrdering Facility: [facility] Address: [address] [place] [address] Performed By: #### 5 8410-2 ####[facility] [id number] [place] [address] [place] RBC (Bld) [#/Vol] 4.10 10*6/uL Low 4.20-6.00 [facility] Comment on above: Order Comment: Speci men Type: BLOOD SPECIMENOrdering Facility: [facility] Address: [address] [place] [address] Performed By: #### 5 8410-2 ####[facility] [id number] [place] [address] [place] WBC (Bld) [#/Vol] 7.32 10*3/uL Normal 3.70-11.00 [facility] Comment on above: Order Comment: Speci men Type: BLOOD SPECIMENOrdering Facility: [facility] Address: [address] [place] [address] Performed By: #### 5 8410-2 ####[facility]IA [id number] [place] [address] [place] Comprehensive metabolic 2000 panelon 01-26-2024 Albumin [Mass/Vol] 4.1 g/dL Normal 3.9-4.9 [facility] Comment on above: Order Comment: Speci men Type: BLOOD SPECIMENOrdering Facility: [facility] Address: [address] [place] [address] Performed By: #### 3 016-3, 80744-4, 3024-7 ####[facility] [id number] [place] [address] [place] ALP [Catalytic activity/Vol] 80 U/L Normal 38-113 [facility] Comment on above: Order Comment: Speci men Type: BLOOD SPECIMENOrdering Facility: [facility] Address: [address] [place] [address] Performed By: #### 3 016-3, 76424-0, 7 ####[facility]CLIA [id number] [place] [address] [place] ALT [Catalytic activity/Vol] 20 U/L Normal 10-54 [facility] Comment on above: Order Comment: Speci men Type: BLOOD SPECIMENOrdering Facility: [facility] Address: [address] [place] [address] Performed By: #### 3 016-3, 28331-6, 7 ####[facility]IA [id number] [place] [address] [place] Anion gap [Moles/Vol] 15 mmol/L Normal 8-15 [facility] Comment on above: Order Comment: Speci men Type: BLOOD SPECIMENOrdering Facility: [facility] Address: [address] [place] [address] Performed By: #### 3 016-3, 94986-9, 7 ####[facility]IA [id number] [place] [address] [place] AST [Catalytic activity/Vol] 30 U/L Normal 14-40 [facility] Comment on above: Order Comment: Speci men Type: BLOOD SPECIMENOrdering Facility: [facility] Address: [address] [place] [address] Performed By: #### 3 016-3, 84047-4, 7 ####[facility]IA [id number] [place] [address] [place] Bilirubin [Mass/Vol] 0.6 mg/dL Normal 0.2-1.3 [facility] Comment on above: Order Comment: Speci men Type: BLOOD SPECIMENOrdering Facility: [facility] Address: [address] [place] [address] Performed By: #### 3 016-3, 61171-1, 3023-11 ####[facility]CLIA [id number] [address] [address] [place] Calcium [Mass/Vol] 9.4 mg/dL Normal 8.5-10.2 [facility] Comment on above: Order Comment: Speci men Type: BLOOD SPECIMENOrdering Facility: [facility] Address: [address] [place] [address] Performed By: #### 3 016-3, , 3023-11 ####[facility]CLIA [id number] [place] [address] [place] Chloride [Moles/Vol] 100 mmol/L Normal 98-107 [facility] Comment on above: Order Comment: Speci men Type: BLOOD SPECIMENOrdering Facility: [facility] Address: [address] [place] [address] Performed By: #### 3 016-3, , 3023-11 ####[facility]CLIA [id number] [place] [address] [place] CO2 [Moles/Vol] 23 mmol/L Normal 22-30 [facility] Comment on above: Order Comment: Speci men Type: BLOOD SPECIMENOrdering Facility: [facility] Address: [address] [place] [address] Performed By: #### 3 016-3, , 3023-11 ####[facility] LABCLIA [id number] [place] [id number] [place] Creatinine [Mass/Vol] 1.11 mg/dL Normal 0.73-1.22 [facility] Comment on above: Order Comment: Speci men Type: BLOOD SPECIMENOrdering Facility: [facility] Address: [address] [place] [address] Performed By: #### 3 016-3, 88874-5, 3023-11 ####[facility]CLIA [id number] [address] [place] Creatinine and Glomerular filtration rate.predicted panel (S/P/Bld) 77 mL/min/1.73m??? Normal >=60 [facility] Comment on above: Order Comment: Davion ewing Type: BLOOD SPECIMENOrdering Facility: [facility] Address: [address] [place] [address] Result Comment: Anai mated Glomerular Filtration Rate (eGFR) is calculated using the 2020 CKD-EPI creatinine equation. This equation utilizes serum creatinine, sex, and age as parameters. The creatinine assay has traceable calibration to isotope dilution-mass spectrometry. Refer to KDIGO guidelines for clinical interpretation. In patients with unstable renal function, e.g. those with acute kidney injury, the eGFR may not accurately reflect actual GFR. Performed By: #### 3 016-3, 08488-1, 3024-7 ####[facility] [id number] [place] [address] [place] Glucose [Mass/Vol] 110 mg/dL High 74-99 [facility] Comment on above: Order Comment: Davion ewing Type: BLOOD SPECIMENOrdering Facility: [facility] Address: [address] [place] [address] Result Comment: The [place] [employer] (ADA) provides guidance for cutoff values for fasting glucose and random glucose. The ADA defines fasting as no caloric intake for at least 8 hours. Fasting plasma glucose results between 100 to 125 mg/dL indicate increased risk for diabetes (prediabetes). Fasting plasma glucose results greater than or equal to 126 mg/dL meet the criteria for diagnosis of diabetes. In the absence of unequivocal hyperglycemia, results should be confirmed by repeat testing. In a patient with classic symptoms of hyperglycemia or hyperglycemic crisis, random plasma glucose results greater than or equal to 200 mg/dL meet the criteria for diagnosis of diabetes. Reference: Standards of Medical Care in Diabetes 2016, [place] [employer]. Diabetes Care. 2016.39(Suppl 1). Performed By: #### 3 016-3, 63750-5, 3024-7 ####[facility] [id number] [place] [id number] [place] Potassium [Moles/Vol] 4.5 mmol/L Normal 3.7-5.1 [facility] Comment on above: Order Comment: Speci men Type: BLOOD SPECIMENOrdering Facility: [facility] Address: [address] [place] [address] Performed By: #### 3 016-3, 10889-5, 3023-11 ####[facility]CLIA [id number] [place] [address] [place] Protein [Mass/Vol] 6.9 g/dL Normal 6.3-8.0 [facility] Comment on above: Order Comment: Speci men Type: BLOOD SPECIMENOrdering Facility: [facility] Address: [address] [place] [address] Performed By: #### 3 016-3, 78487-4, 3023-11 ####[facility]CLIA [id number] [place] [address] [place] Sodium [Moles/Vol] 138 mmol/L Normal 136-144 [facility] Comment on above: Order Comment: Speci men Type: BLOOD SPECIMENOrdering Facility: [facility] Address: [address] [place] [address] Performed By: #### 3 016-3, 91008-2, 3023-11 ####[facility]CLIA [id number] [place] [address] [place] Urea nitrogen [Mass/Vol] 15 mg/dL Normal 9-24 [facility] Comment on above: Order Comment: Speci men Type: BLOOD SPECIMENOrdering Facility: [facility] Address: [address] [place] [address] Performed By: #### 3 016-3, 72777-9, 3023-11 ####[facility]CLIA [id number] [place] [address] [place] T4 Free SerPl-mCncon 024 Free T4 [Mass/Vol] 1.3 ng/dL Normal 0.9-1.7 [facility] Comment on above: Order Comment: Speci men Type: BLOOD SPECIMENOrdering Facility: [facility] Address: [address] [place] [address] Performed By: #### 3 016-3, 11751-7, 3027 ####[facility] [id number] [place] [address] [place] TSH SerPl-aCncon 01-26-2024 TSH Qn 3.860 m[IU]/L Normal 0.270-4.200 [facility] Comment on above: Order Comment: Speci men Type: BLOOD SPECIMENOrdering Facility: [facility] Address: [address] [place] [address] Performed By: #### 3 016-3, 45960-0, 3027 ####[facility] [id number] [address] [place] CNOVon 01-02-2024 CNOV Office Visit (FAMPWS ) SORAYA BOWSER ([id number]) 1965 M Date Time Provider Department 01/02/24 2:00 PM ALIRIO ARMAS FAMPWS During your visit today, we recorded the following information about you: Pulse Respiration Blood pressure Weight 84/minute 18/minute 102/70 117.8 kg Alirio Armas MD 01/02/2024 5:29 PM Signed Transitional Care Management TCM Eligibility Documentation The following information was gathered during patient outreach 12/29/2023 Date of Outreach: Outreach Attempt 1: Contact Made Date of Discharge 12/28/2023 Provider Documentation Soraya Ansari Niels is a 58 year old male here today for a follow up from recent hospitalization. I have reviewed the patient's hospital course including discharge summary, discharge medications , and follow up needs with the patient and any family members present at today's visit. [facility] follow up. Pt here today for a 7 day TCM. Pt discharged from [facility] on 12/28/23. Syncope - Pt at this time still not taking Amlodipine 10 mg once daily and Lisinopril 40 mg once daily. Since being d/c home he's not had any more symptoms of feeling like he's going to pass out. Checking BP at home, noting it's been higher in the 130-140's/70-80's. Denies any chest pain, sob or dizziness. Is supposed to be on a 30 days heart monitor that was ordered by the Hospital. He's not yet received it at this time. Has not been referred to Cardiology at this time. Was changed from Prilosec to Protonix 40 mg bid. Pt was still having burning pain in his sternum despite taking Prilosec. Was referred to [facility]. Friend has an appt with him on 01/12/24. SHARI - Advised to stay well hydrated from Hospital. Pt notes he's trying to. Drinking at least 4-5 16 oz bottles of water per day. No sutures placed due laceration on the back of his head. -Pt discharged from [facility] on 12/28/23. -Admitted for: syncope and shari Below copied from [employer] History of Present Illness Chief Complaint: Syncope Detail of Chief Complaint: 6 syncopal/near syncopal episodes over the last 2 weeks Informant: patient Onset/Context/Timing Onset: Yesterday Context: Sudden Onset Timing: Intermittent Quality: Patient gets lightheaded when he rises from sitting position and passes out Location: Home Current Severity: Presently patient is supine in examination bed and has no symptoms Maximum Severity: All 6 episodes occurred while patient was rising from a sitting position Worsened by: Nothing Relieved by: Nothing Associated Symptoms Associated Symptoms: complains of head pain and buttocks pain Narrative Narrative: Patient is a 58-year-old male. He saw his primary care doctor. His primary care doctor discontinued his amlodipine and lisinopril. Patient denies black or maroon-colored stool. Patient states 2 to 3 days ago he had dark-colored emesis. This was not followed or preceded by a syncopal episode. He is on no anticoagulant. He denies bruising easily. Denies blood in his urine. Denies bleeding of his gums. Lasix also was yesterday. All of the episodes occurred when he charlie from a sitting position to a standing position. There is no history of diabetes or autonomic dysfunction. Medical decision making narrative: All events occurred when patient had change in position from sitting sign. Will obtain orthostatic vitals. EKG was obtained. CBC was obtained assess HANDH and BMP was obtained to assess BUN to creatinine ratio. If this is elevated since he reported dark emesis even though he denies black or maroon stool a couple days ago will perform rectal and possibly have nurse insert NG to assess for GI bleed. Plan #syncope likely due to orthostatic hypotension dizziness is worse when he gets out of bed and tries to ambulate orthostatics were positive, with diastolic BP dropping > 10mmhg with patient getting up. continue gentle hydration with IVF 2D ehco showed EF of 60% with normal LV size and no regional wall motion abnormalities, with stage 1 diastolic dysfunction PT/OT on board. fall precautions will benefit from 30 day event monitor on outpatient basis #SHARI Creatinine was elevated at over 3 when he was admitted. He was hydrated with IV fluids and creatinine is down to 1.65. Continue gentle hydration and monitor. #Hyponatremia: Sodium was 129 on admission and is now up to 134 after hydration with fluids. Was likely due to volume depletion. Will continue hydration and monitor. #Hypothyroidism: on synthroid. # Hypertension: On propranolol #GERD: On omeprazole. Complains of retrosternal burning pain with swallowing. Will add on surfactant and increase omeprazole to 40 mg twice daily and monitor. 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 Hospital Course: Patient is a 58 y/o male with a PMH as outlined who was admitted via the ED with a complaint of r (more content not included)... Normal [facility] CNOVon 12-26-2023 CNOV Office Visit ([facility] ) SORAYA BOWSER ([id number]) 1965 M Date Time Provider Department 12/26/23 1:20 PM THEE ROMANO During your visit today, we recorded the following information about you: Pulse Respiration Blood pressure Weight 95/minute 16/minute 80/62 115.3 kg Thee Romano APRN.CNP 12/26/2023 1:29 PM Addendum Chief Complaint Patient presents with: Hypotension: Passed out twice on Tuesday, once yesterday, injury to back of head and buttocks HPI Soraya Bowser is a 58 year old male who presents here today for Above Complaints. Patient is here with complaints of hypotension. Stating that he passed out twice on Tuesday, once yesterday, suffering injury to the back of his head, buttocks. States that he has a gash in the back of his head last evening Blood pressure this weekend was 80/50. Today before our visit his blood pressure was 139/79. He admits that he did not take his lisinopril last evening due to low blood pressure. At this time, the patient is prescribed amlodipine 10 mg, lisinopril 20 mg once daily, propranolol 20 mg once daily. He is not on a blood thinner. He states that he is not taking any medication for blood pressure at this time. Last lisinopril dose was 2 days ago. Has not taken amlodipine for a few days. Takes propranolol for tremor. Never called emergency services as he states he did not have a ride nor did he want to pay for a ambulance. Past medical history, appointments, medications, allergies reviewed. EXAM: BP 80/62 Pulse 95 Resp 16 Wt 115.3 kg (254 lb 3.1 oz) SpO2 96% BMI 37.01 kg/m? General Appearance: Well appearing, alert, in no acute distress, well-hydrated, well nourished.. Skin: Large gash to the back of his head, minimal drainage. Skin appears clammy. Lungs: Lungs clear to auscultation. No wheezing, rhonchi, rales.. Heart: RRR without murmur, gallop, or rubs. No ectopy. ASSESSMENT/PLAN: 1. Hypotension, unspecified hypotension type - ICD9: 458.9, ICD10: I95.9 (primary diagnosis) -Patient has continued hypotension in the office despite not being on any blood pressure medications for the past 2 to 3 days. Patient appears clammy. He overall states that he does not feel well. I recommended that we call the emergency squad to have him taken to the nearest emergency room. He refused. He states that he will walk across the street to the emergency room. I discussed that there is a risk of compromise, risk to his life and others if he decides to walk across the street. He verbalized understanding and continued with plan to walk across to [facility]. 2. Laceration of head without foreign body, unspecified part of head, sequela - ICD9: 906.0, ICD10: S01.91XS -See #1, unsure if he needs CAT scan, do to laceration. 3. Fall, initial encounter - ICD9: E888.9, ICD10: W19.XXXA -See #1 Report sent to [facility] via emergency room portal. Thee Romano APRN.TRICOT KNITTING MACHINE OPERATOR This note was partly generated using [employer] voice recognition dictation and may contain some misspelled or inaccurate words missed on review. Allergies As of Date: 12/26/2023 (No Known Allergies) Date Reviewed: 12/26/2023 Reviewed by: Iliana Peraza LPN - Fully Assessed Reason for Visit: Hypotension [1978] Cmt: Passed out twice on Tuesday, once yesterday, injury to back of head and buttocks Primary Visit Diagnosis:Hypotension, unspecified hypotension type [I95.9] Other Visit Diagnoses:Laceration of head without foreign body, unspecified part of head, sequela [S01.91XS] Fall, initial encounter [W19.XXXA] Prescriptions as of 12/26/2023 - cyclobenzaprine (FLEXERIL) 10 mg tablet Take 1 tablet by mouth three times a day as needed for up to 10 days. - Phentermine HCl (ADIPEX-P) 37.5 mg tablet Take 1 tablet by mouth once daily for 90 days. - tamsulosin (FLOMAX) 0.4 mg Take 1 capsule by mouth at bedtime as needed. - brexpiprazole (REXULTI) 3 mg tablet Take 1 tablet by mouth once daily. - QUEtiapine (SEROQUEL) 100 mg tablet Take 1 tablet by mouth two times a day. - vortioxetine (TRINTELLIX) 10 mg tablet Take 1 tablet by mouth once daily. - propranolol (INDERAL) 20 mg tablet Take 1 tablet by mouth once daily. - lisinopril (ZESTRIL) 20 mg tablet Take 1 tablet by mouth once daily. - levothyroxine (SYNTHROID) 75 mcg tablet Take 1 tablet by mouth once daily. Take on empty stomach. For Thyroid - amLODIPine (NORVASC) 10 mg tablet Take 1 tablet by mouth once daily. - folic acid 1 mg tablet Take 1 tablet by mouth once daily. - omeprazole (PRILOSEC) 40 mg capsule Take 1 capsule by mouth once daily. - sildenafil (VIAGRA) 50 mg tablet Take 1 tablet 30-60 minutes prior to intercourse by mouth. - divalproex DR (DEPAKOTE) 500 mg EC tablet Take 2 tablets by mouth once daily. - traZODone HCl (DESYREL) 300 mg tablet Take 1 t (more content not included)... Normal [facility] 12-21-2023 [facility] SORAYA BOWSER ([id number]) 1965 M Date Time Provider Department 12/21/23 [facility] During your visit today, we recorded the following information about you: Mónica Walton APRN.CNP 12/21/2023 1:03 PM Signed Can you please call the patient and let him know that I reviewed his lumbar spine x-ray results. X-ray shows arthritis in the low back. I would recommend that he continue with supportive care at home. May use NSAIDs, may consider a once daily arthritis medication such as meloxicam. If pain is not improving recommend physical therapy and consult with orthopedics. Please let me know if he has any questions. Thank you. Mónica Walton APRN.Vesna Mac LPN 12/21/2023 1:12 PM Signed Patient notified of results, verbalizes understanding of instructions. Vesna Espana LPN Allergies As of Date: 12/21/2023 (No Known Allergies) Date Reviewed: 12/16/2023 Reviewed by: Vesna Espana LPN - Fully Assessed Reason for Visit: Results [95] Cmt: Xray Lumbar Prescriptions as of 12/21/2023 - predniSONE (DELTASONE) 10 mg tablet Take 4 tabs daily for 3 days, then 2 tabs daily for 3 days, then 1 tab daily for 3 days with food. - cyclobenzaprine (FLEXERIL) 10 mg tablet Take 1 tablet by mouth three times a day as needed for up to 10 days. - Phentermine HCl (ADIPEX-P) 37.5 mg tablet Take 1 tablet by mouth once daily for 90 days. - tamsulosin (FLOMAX) 0.4 mg Take 1 capsule by mouth at bedtime as needed. - brexpiprazole (REXULTI) 3 mg tablet Take 1 tablet by mouth once daily. - QUEtiapine (SEROQUEL) 100 mg tablet Take 1 tablet by mouth two times a day. - vortioxetine (TRINTELLIX) 10 mg tablet Take 1 tablet by mouth once daily. - propranolol (INDERAL) 20 mg tablet Take 1 tablet by mouth once daily. - lisinopril (ZESTRIL) 20 mg tablet Take 1 tablet by mouth once daily. - levothyroxine (SYNTHROID) 75 mcg tablet Take 1 tablet by mouth once daily. Take on empty stomach. For Thyroid - amLODIPine (NORVASC) 10 mg tablet Take 1 tablet by mouth once daily. - folic acid 1 mg tablet Take 1 tablet by mouth once daily. - omeprazole (PRILOSEC) 40 mg capsule Take 1 capsule by mouth once daily. - sildenafil (VIAGRA) 50 mg tablet Take 1 tablet 30-60 minutes prior to intercourse by mouth. - divalproex DR (DEPAKOTE) 500 mg EC tablet Take 2 tablets by mouth once daily. - traZODone HCl (DESYREL) 300 mg tablet Take 1 tablet by mouth daily at bedtime. - melatonin 10 mg tab Take 1 tablet by mouth daily at bedtime. Meds Comments as of 05/11/2018: Uses Melatonin 10 mg hs Problem List As Of Date 12/21/2023 Noted Resolved Anxiety [F41.9] 02/13/2014 GERD (gastroesophageal reflux disease) [K21.9] 02/06/2015 Alcohol abuse [F10.10] 03/17/2015 Diarrhea [R19.7] 12/22/2016 12/28/2017 Change in bowel habit [R19.4] 12/22/2016 History of esophagogastroduodenoscopy (EGD) [Z9*12/22/2016 Obesity, Class I, BMI 30-34.9 [E66.9] 12/23/2017 Lung abscess (HCC) [J85.2] 12/23/2017 01/03/2018 Bipolar 1 disorder (HCC) [F31.9] 12/24/2017 Elevated blood pressure reading [R03.0] 12/24/2017 01/03/2018 Mediastinal lymphadenopathy [R59.0] 12/24/2017 08/28/2018 Sinus tachycardia [R00.0] 12/24/2017 12/28/2017 Thrombocytosis (HCC) [D75.839] 12/24/2017 08/28/2018 Macrocytic anemia [D53.9] 12/24/2017 Pulmonary embolism, bilateral (HCC) [I26.99] 12/24/2017 08/28/2018 Severe protein-calorie malnutrition (HCC) [E43] 12/24/2017 Essential hypertension [I10] 07/20/2018 Hyperlipidemia with target LDL less than 130 [E*01/20/2019 Hypothyroidism due to medication [E03.2] 01/21/2022 Benign prostatic hyperplasia with urinary frequ*07/26/2022 Traumatic brain injury with loss of consciousne*10/12/2022 Platelets decreased (HCC) [D69.6] 10/12/2022 Alcohol dependence with uncomplicated withdrawa*10/12/2022 Obesity, Class II, BMI 35-39.9 [E66.9] 10/12/2022 Encounter Status:Closed by VESNA ESPANA on 12/21/23 [facility] CNOVon 12-16-2023 CNOV Office Visit (FAMPWS ) SORAYA BOWSER ([id number]) 1965 M Date Time Provider Department 12/16/23 10:20 AM MÓNICA WALTON During your visit today, we recorded the following information about you: Pulse Respiration Blood pressure Weight 94/minute 16/minute 98/68 113.9 kg Mónica Walton APRN.TRICOT KNITTING MACHINE OPERATOR 12/16/2023 10:19 AM Signed Start Prednisone taper, take with food. May use additional tylenol if needed May use Flexeril as needed for muscle tension, may make you sleepy Continue supportive care at home, heat, ice, and stretching. Get xray completed Follow up pending test results or sooner as needed. Mónica Walton APRN.TRICOT KNITTING MACHINE OPERATOR 12/16/2023 10:45 AM Signed This is a 58 year old male who presents today with: Patient presents with: Acute Visit: back issues HISTORY OF PRESENT ILLNESS: Soraya Bowser is a 58 year old male. Patient presents with: Acute Visit: back issues Here in the office for back pain. Has a chronic history of low back pain. Refers that he fractured sacrum in high school when playing football. Pain seems to be progressively getting worse over the past several months. Doing increased lifting and bending at work. 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 No radiating symptoms down the legs. Has been using advil and tylenol which is mildly helpful. Has been stretching at home. Has tried icy hot and aspercream. Denies loss of bowel/bladder or saddle anesthesia. PAST MEDICAL HISTORY: PAST MEDICAL HISTORY Diagnosis Date SHARI (acute kidney injury) ([facility]) 12/27/2017 Alcohol abuse Anxiety Bipolar 1 disorder ([facility]) Cellulitis and abscess of unspecified site 10/28/2014 Essential hypertension 07/20/2018 GERD (gastroesophageal reflux disease) Impingement syndrome of right shoulder 07/26/2013 Left elbow pain Leukocytosis 12/24/2017 Macrocytic anemia 12/24/2017 Pulmonary emboli ([facility]) 12/2017 Pulmonary embolism, bilateral ([facility]) 12/24/2017 Severe protein-calorie malnutrition (HCC) 12/24/2017 Shoulder pain, right Thrombocytosis 12/24/2017 Unintentional weight loss 12/24/2017 PAST SURGICAL HISTORY Procedure Laterality Date COLONOSCOPY FLX DX W/COLLJ SPEC WHEN PFRMD N/A 08/18/2020 Kedar Brittanynicolette--[facility]--repeat 10 years PAST SURGICAL HISTORY OF Right 1998 right wrist debridement (s/p infection of pins from repair) PICC LINE INSERTION (PICC TEAM) ([place]) 12/27/2017 ALLERGIES Patient has no known allergies. MEDICATIONS Current Outpatient Medications Medication Sig Phentermine HCl (ADIPEX-P) 37.5 mg tablet Take 1 tablet by mouth once daily for 90 days. tamsulosin (FLOMAX) 0.4 mg Take 1 capsule by mouth at bedtime as needed. brexpiprazole (REXULTI) 3 mg tablet Take 1 tablet by mouth once daily. QUEtiapine (SEROQUEL) 100 mg tablet Take 1 tablet by mouth two times a day. vortioxetine (TRINTELLIX) 10 mg tablet Take 1 tablet by mouth once daily. propranolol (INDERAL) 20 mg tablet Take 1 tablet by mouth once daily. (Patient taking differently: Take 20 mg by mouth two times a day.) lisinopril (ZESTRIL) 20 mg tablet Take 1 tablet by mouth once daily. levothyroxine (SYNTHROID) 75 mcg tablet Take 1 tablet by mouth once daily. Take on empty stomach. For Thyroid amLODIPine (NORVASC) 10 mg tablet Take 1 tablet by mouth once daily. folic acid 1 mg tablet Take 1 tablet by mouth once daily. omeprazole (PRILOSEC) 40 mg capsule Take 1 capsule by mouth once daily. sildenafil (VIAGRA) 50 mg tablet Take 1 tablet 30-60 minutes prior to intercourse by mouth. divalproex DR (DEPAKOTE) 500 mg EC tablet Take 2 tablets by mouth once daily. traZODone HCl (DESYREL) 300 mg tablet Take 1 tablet by mouth daily at bedtime. melatonin 10 mg tab Take 1 tablet by mouth daily at bedtime. No current facility-administered medications for this visit. FAMILY HISTORY Adopted: Yes Problem Relation Age of Onset Cancer Father other (congestive heart failure) Maternal Grandmother No Known Problems Half-brother No Known Problems Half-brother Asthma Son No Known Problems Daughter Social History Tobacco Use Smoking status: Never Smokeless tobacco: Never Vaping Use Vaping Use: Never used Substance Use Topics Alcohol use: Yes Comment: Socially Drug use: No REVIEW OF SYSTEMS GENERAL: No weight loss, malaise or fevers/chills HEENT: Negative for frequent or significant headaches, No changes in hearing or vision. NECK: Negative for lumps, goiter, pain and significant neck swelling RESPIRATORY: Negative for cough, hemoptysis, wheezing, dyspnea or shortness of breath CARDIOVASCULAR: Negative for chest pain, leg swelling, orthopnea, or palpitations GI: No nausea, vomiting, or diarrhea/constipation. No hematochezia/melena. No heartburn or reflux symptoms. : No history of dysuria, frequency or incontinence MUSCULOSKELETAL: + Back Pain SKIN: Negative for lesions, rash, and itching ENDOCRINE: Negati (more content not included)... Normal [facility] XR LUMBAR 3V AP/LAT/L5-S1on 12-16-2023 XR LUMBAR 3V AP/LAT/L5-S1 * * *Final Report* * * DATE OF EXAM: Dec 16 2023 10:34AM [id number] - XR LUMBAR 3V AP/LAT/L5-S1 / PROCEDURE REASON: multiple diagnoses * * * * Physician Interpretation * * * * EXAM TITLE: XR LUMBAR 3V AP/LAT/L5-S1 EXAM DATE/TIME: 12/16/2023 10:34 AM COMPARISON: None. CLINICAL INDICATION/HISTORY: Low back pain. TECHNIQUE: AP, lateral and cone down lateral views of the lumbar spine are presented. FINDINGS: There are five [id number] lumbar vertebrae. No acute fractures seen. There is grade 1 L2 on L3 and L3 on L4 retrolisthesis. L1-2 disc space narrowing is demonstrated. There is moderate osteophyte formation. Kissing spine seen on lateral view. IMPRESSION: Lumbar spine degenerative changes with L1-2 disc space narrowing. Cafe Site Attendant: PSCB Transcribe Date/Time: Dec 19 2023 12:09P Dictated by : FAMILIA WASHBURN MD This examination was interpreted and the report reviewed and electronically signed by: FAMILIA WASHBURN MD on Dec 19 2023 12:11PM EST [id number] Normal [facility] CNOVon 11-02-2023 CNOV Office Visit (FAMPWS ) SORAYA BOWSER ([id number]) 1965 M Date Time Provider Department 11/02/23 10:20 AM MÓNICA WALTON [facility] During your visit today, we recorded the following information about you: Pulse Respiration Blood pressure Weight 76/minute 16/minute 103/63 116.1 kg Mónica Walton APRN.[facility] 11/02/2023 10:41 AM Signed This is a 58 year old male who presents today with: Patient presents with: Acute Visit: Passing out HISTORY OF PRESENT ILLNESS: Soraya Bowser is a 58 year old male. Patient presents with: Acute Visit: Passing out Here in the office for syncope. Started about 6 weeks ago, getting 1 episode per week. Will get dizziness when going from sitting to standing. Has passed out about 5 times. Has hit his head. LOC lasting seconds. Has had some on going SOB at times. Denies chest pain, palpitations, or edema. Taking lisinopril 20 mg, amlodipine 10 mg daily. Is currently taking propranolol 20 mg daily for tremor. Last ECG completed by [facility], 2018, showed NSR. Taking Adipex 37.5 mg for weight loss. Denies any palpitations or difficulty sleeping. PAST MEDICAL HISTORY: PAST MEDICAL HISTORY Diagnosis Date SHARI (acute kidney injury) (HCC) 12/27/2017 Alcohol abuse Anxiety Bipolar 1 disorder (HCC) Cellulitis and abscess of unspecified site 10/28/2014 Essential hypertension 07/20/2018 GERD (gastroesophageal reflux disease) Impingement syndrome of right shoulder 07/26/2013 Left elbow pain Leukocytosis 12/24/2017 Macrocytic anemia 12/24/2017 Pulmonary emboli (HCC) 12/2017 Pulmonary embolism, bilateral (HCC) 12/24/2017 Severe protein-calorie malnutrition (HCC) 12/24/2017 Shoulder pain, right Thrombocytosis 12/24/2017 Unintentional weight loss 12/24/2017 PAST SURGICAL HISTORY Procedure Laterality Date COLONOSCOPY FLX DX W/COLLJ SPEC WHEN PFRMD N/A 08/18/2020 Kedar Tariq--[facility]--repeat 10 years PAST SURGICAL HISTORY OF Right 1998 right wrist debridement (s/p infection of pins from repair) PICC LINE INSERTION (PICC TEAM) ([place]) 12/27/2017 ALLERGIES Patient has no known allergies. MEDICATIONS Current Outpatient Medications Medication Sig Phentermine HCl (ADIPEX-P) 37.5 mg tablet Take 1 tablet by mouth once daily for 90 days. predniSONE (DELTASONE) 10 mg tablet Take 4 tabs daily for 3 days, then 2 tabs daily for 3 days, then 1 tab daily for 3 days with food. tamsulosin (FLOMAX) 0.4 mg Take 1 capsule by mouth at bedtime as needed. brexpiprazole (REXULTI) 3 mg tablet Take 1 tablet by mouth once daily. QUEtiapine (SEROQUEL) 100 mg tablet Take 1 tablet by mouth two times a day. vortioxetine (TRINTELLIX) 10 mg tablet Take 1 tablet by mouth once daily. propranolol (INDERAL) 20 mg tablet Take 1 tablet by mouth once daily. (Patient taking differently: Take 20 mg by mouth two times a day.) lisinopril (ZESTRIL) 20 mg tablet Take 1 tablet by mouth once daily. levothyroxine (SYNTHROID) 75 mcg tablet Take 1 tablet by mouth once daily. Take on empty stomach. For Thyroid amLODIPine (NORVASC) 10 mg tablet Take 1 tablet by mouth once daily. folic acid 1 mg tablet Take 1 tablet by mouth once daily. omeprazole (PRILOSEC) 40 mg capsule Take 1 capsule by mouth once daily. sildenafil (VIAGRA) 50 mg tablet Take 1 tablet 30-60 minutes prior to intercourse by mouth. divalproex DR (DEPAKOTE) 500 mg EC tablet Take 2 tablets by mouth once daily. traZODone HCl (DESYREL) 300 mg tablet Take 1 tablet by mouth daily at bedtime. melatonin 10 mg tab Take 1 tablet by mouth daily at bedtime. No current facility-administered medications for this visit. FAMILY HISTORY Adopted: Yes Problem Relation Age of Onset Cancer Father other (congestive heart failure) Maternal Grandmother No Known Problems Half-brother No Known Problems Half-brother Asthma Son No Known Problems Daughter Social History Tobacco Use Smoking status: Never Smokeless tobacco: Never Vaping Use Vaping Use: Never used Substance Use Topics Alcohol use: Yes Comment: Socially Drug use: No REVIEW OF SYSTEMS GENERAL: No weight loss, malaise or fevers/chills HEENT: Negative for frequent or significant headaches, No changes in hearing or vision. NECK: Negative for lumps, goiter, pain and significant neck swelling RESPIRATORY: Negative for cough, hemoptysis, wheezing, dyspnea or shortness of breath CARDIOVASCULAR: Negative for chest pain, leg swelling, orthopnea, or palpitations GI: No nausea, vomiting, or diarrhea/constipation. No hematochezia/melena. No heartburn or reflux symptoms. : No history of dysuria, frequency or incontinence MUSCULOSKELETAL: Negative for joint pain or swelling. SKIN: Negative for lesions, rash, and itching ENDOCRINE: Negative for cold or heat intolerance, polyuria, polydipsia and goiter NEURO: No history of headaches, syncope, paralysis, seizures or tremors MOOD: Negative for depressi (more content not included)... Normal [facility] CNOVon 10-19-2023 [facility] Office Visit ([facility] ) NIELS,SORAYA Ansari ([id number]) 1965 M Date Time Provider Department 10/19/23 9:00 AM [facility]ICA WALTON [facility] During your visit today, we recorded the following information about you: Pulse Respiration Blood pressure Weight 74/minute 16/minute 112/66 117 kg Mónica Walton APRN.TRICOT KNITTING MACHINE OPERATOR 10/19/2023 9:20 AM Signed This is a 58 year old male who presents today with: Patient presents with: Acute Visit: weight loss HISTORY OF PRESENT ILLNESS: Soraya Bowser is a 58 year old male. Patient presents with: Acute Visit: weight loss Here in the office for weight check. Last month weight was 263 lbs. Todays weight 258 lbs. taking Adipex 37.5 mg daily. Has been eating a well balanced diet and getting exercise. Tolerating medication well without any side effects. Denies any difficulty sleeping or palpitations. Rash, started last weekend on arms bilaterally and now has spread to abdomen. Taking edith daily. Rash is not itchy. 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 PAST MEDICAL HISTORY: PAST MEDICAL HISTORY Diagnosis Date SHARI (acute kidney injury) ([facility]) 12/27/2017 Alcohol abuse Anxiety Bipolar 1 disorder ([facility]) Cellulitis and abscess of unspecified site 10/28/2014 Essential hypertension 07/20/2018 GERD (gastroesophageal reflux disease) Impingement syndrome of right shoulder 07/26/2013 Left elbow pain Leukocytosis 12/24/2017 Macrocytic anemia 12/24/2017 Pulmonary emboli (HCC) 12/2017 Pulmonary embolism, bilateral (HCC) 12/24/2017 Severe protein-calorie malnutrition ([facility]) 12/24/2017 Shoulder pain, right Thrombocytosis 12/24/2017 Unintentional weight loss 12/24/2017 PAST SURGICAL HISTORY Procedure Laterality Date COLONOSCOPY FLX DX W/COLLJ SPEC WHEN PFRMD N/A 08/18/2020 Kedar Tariq--[facility]--repeat 10 years PAST SURGICAL HISTORY OF Right 1998 right wrist debridement (s/p infection of pins from repair) PICC LINE INSERTION (PICC TEAM) ([place]) 12/27/2017 ALLERGIES Patient has no known allergies. MEDICATIONS Current Outpatient Medications Medication Sig tamsulosin (FLOMAX) 0.4 mg Take 1 capsule by mouth at bedtime as needed. brexpiprazole (REXULTI) 3 mg tablet Take 1 tablet by mouth once daily. QUEtiapine (SEROQUEL) 100 mg tablet Take 1 tablet by mouth two times a day. vortioxetine (TRINTELLIX) 10 mg tablet Take 1 tablet by mouth once daily. propranolol (INDERAL) 20 mg tablet Take 1 tablet by mouth once daily. lisinopril (ZESTRIL) 20 mg tablet Take 1 tablet by mouth once daily. levothyroxine (SYNTHROID) 75 mcg tablet Take 1 tablet by mouth once daily. Take on empty stomach. For Thyroid amLODIPine (NORVASC) 10 mg tablet Take 1 tablet by mouth once daily. folic acid 1 mg tablet Take 1 tablet by mouth once daily. omeprazole (PRILOSEC) 40 mg capsule Take 1 capsule by mouth once daily. sildenafil (VIAGRA) 50 mg tablet Take 1 tablet 30-60 minutes prior to intercourse by mouth. divalproex DR (DEPAKOTE) 500 mg EC tablet Take 2 tablets by mouth once daily. traZODone HCl (DESYREL) 300 mg tablet Take 1 tablet by mouth daily at bedtime. melatonin 10 mg tab Take 1 tablet by mouth daily at bedtime. No current facility-administered medications for this visit. FAMILY HISTORY Adopted: Yes Problem Relation Age of Onset Cancer Father other (congestive heart failure) Maternal Grandmother No Known Problems Half-brother No Known Problems Half-brother Asthma Son No Known Problems Daughter Social History Tobacco Use Smoking status: Never Smokeless tobacco: Never Vaping Use Vaping Use: Never used Substance Use Topics Alcohol use: Yes Comment: Socially Drug use: No REVIEW OF SYSTEMS GENERAL: No weight loss, malaise or fevers/chills HEENT: Negative for frequent or significant headaches, No changes in hearing or vision. NECK: Negative for lumps, goiter, pain and significant neck swelling RESPIRATORY: Negative for cough, hemoptysis, wheezing, dyspnea or shortness of breath CARDIOVASCULAR: Negative for chest pain, leg swelling, orthopnea, or palpitations GI: No nausea, vomiting, or diarrhea/constipation. No hematochezia/melena. No heartburn or reflux symptoms. : No history of dysuria, frequency or incontinence MUSCULOSKELETAL: Negative for joint pain or swelling. SKIN: + Rash ENDOCRINE: Negative for cold or heat intolerance, polyuria, polydipsia and goiter NEURO: No history of headaches, syncope, paralysis, seizures or tremors MOOD: Negative for depression, anxiety, or suicidal ideation. EXAM: BP 112/66 Pulse 74 Resp 16 Wt 117 kg (258 lb) SpO2 96% BMI 37.57 kg/m? PHYSICAL EXAM: General Appearance: Well appearing, alert, in no acute distress, well-hydrated, well nourished. Skin: Dry, flat Erythematic rash noted to bilateral arms as well as abdomen. No crusting or seeping noted. Head: Normocephalic, no masses, lesions, tenderness o (more content not included)... Normal [facility] CNOVon 09-07-2023 CNOV Office Visit ([facility] ) SORAYA BOWSER ([id number]) 1965 M Date Time Provider Department 09/07/23 9:40 AM MÓNICA WALTON During your visit today, we recorded the following information about you: Temperature Pulse Respiration Blood pressure 98.6 degrees 91/minute 16/minute 106/80 Weight 119.3 kg Mónica Walton APRN.TRICOT KNITTING MACHINE OPERATOR 09/07/2023 12:05 PM Signed This is a 58 year old male who presents today with: Patient presents with: Acute Visit: cold and med follow up HISTORY OF PRESENT ILLNESS: Soraya Bowser is a 58 year old male. Patient presents with: Acute Visit: cold and med follow up Here in the office for weight/mediation Check. Taking adipex 37.5 mg daily. Last weight 266 lbs.Todays weight is 263 lbs. Has been eating healthy diet. Still doing 2 workouts daily, trying to increase steps per day. Trying to eat 1800 calories daily. Has been tolerating the medication. No difficulty sleeping or palpitations. URI: Cough, sore throat, post nasal drip, and SOB at times. Symptoms started on Tuesday. Taking OTC cold and cough medications which have not been beneficial. Difficulty sleeping due to the nasal congestion. No nasal discharge but pressure. Tuesday and Tuesday had fever. PAST MEDICAL HISTORY: PAST MEDICAL HISTORY Diagnosis Date SHARI (acute kidney injury) ([facility]) 12/27/2017 Alcohol abuse Anxiety Bipolar 1 disorder ([facility]) Cellulitis and abscess of unspecified site 10/28/2014 Essential hypertension 07/20/2018 GERD (gastroesophageal reflux disease) Impingement syndrome of right shoulder 07/26/2013 Left elbow pain Leukocytosis 12/24/2017 Macrocytic anemia 12/24/2017 Pulmonary emboli (HCC) 12/2017 Pulmonary embolism, bilateral (HCC) 12/24/2017 Severe protein-calorie malnutrition (HCC) 12/24/2017 Shoulder pain, right Thrombocytosis 12/24/2017 Unintentional weight loss 12/24/2017 PAST SURGICAL HISTORY Procedure Laterality Date COLONOSCOPY FLX DX W/COLLJ SPEC WHEN PFRMD N/A 08/18/2020 Kedar Tariq--[facility]--repeat 10 years PAST SURGICAL HISTORY OF Right 1998 right wrist debridement (s/p infection of pins from repair) PICC LINE INSERTION (PICC TEAM) ([place]) 12/27/2017 ALLERGIES Patient has no known allergies. MEDICATIONS Current Outpatient Medications Medication Sig Phentermine HCl (ADIPEX-P) 37.5 mg tablet Take 1 tablet by mouth once daily for 30 days. brexpiprazole (REXULTI) 3 mg tablet Take 1 tablet by mouth once daily. QUEtiapine (SEROQUEL) 100 mg tablet Take 1 tablet by mouth two times a day. vortioxetine (TRINTELLIX) 10 mg tablet Take 1 tablet by mouth once daily. propranolol (INDERAL) 20 mg tablet Take 1 tablet by mouth once daily. lisinopril (ZESTRIL) 20 mg tablet Take 1 tablet by mouth once daily. tamsulosin (FLOMAX) 0.4 mg Take 1 capsule by mouth once daily at bedtime levothyroxine (SYNTHROID) 75 mcg tablet Take 1 tablet by mouth once daily. Take on empty stomach. For Thyroid amLODIPine (NORVASC) 10 mg tablet Take 1 tablet by mouth once daily. folic acid 1 mg tablet Take 1 tablet by mouth once daily. omeprazole (PRILOSEC) 40 mg capsule Take 1 capsule by mouth once daily. sildenafil (VIAGRA) 50 mg tablet Take 1 tablet 30-60 minutes prior to intercourse by mouth. SUMAtriptan (IMITREX) 50 mg tablet Take 1 at the initiation of headache. May repeat in 2 hours if no relief. (Patient not taking: Reported on 02/25/2023) divalproex DR (DEPAKOTE) 500 mg EC tablet Take 2 tablets by mouth once daily. traZODone HCl (DESYREL) 300 mg tablet Take 1 tablet by mouth daily at bedtime. triHEXYphenidyl (ARTANE) 2 mg tablet Take 2 mg by mouth three times daily. (Patient not taking: Reported on 01/21/2022) melatonin 10 mg tab Take 1 tablet by mouth daily at bedtime. No current facility-administered medications for this visit. FAMILY HISTORY Adopted: Yes Problem Relation Age of Onset Cancer Father other (congestive heart failure) Maternal Grandmother No Known Problems Half-brother No Known Problems Half-brother Asthma Son No Known Problems Daughter Social History Tobacco Use Smoking status: Never Smokeless tobacco: Never Vaping Use Vaping Use: Never used Substance Use Topics Alcohol use: Yes Comment: Socially Drug use: No REVIEW OF SYSTEMS GENERAL: No weight loss, malaise or fevers/chills HEENT: + Sore throat, postnasal drip, sinus pressure NECK: Negative for lumps, goiter, pain and significant neck swelling RESPIRATORY: + Cough CARDIOVASCULAR: Negative for chest pain, leg swelling, orthopnea, or palpitations GI: No nausea, vomiting, or diarrhea/constipation. No hematochezia/melena. No heartburn or reflux symptoms. : No history of dysuria, frequency or incontinence MUSCULOSKELETAL: Negative for joint pain or swelling. SKIN: Negative for lesions, rash, and itching ENDOCRINE: Negative for cold or heat intolerance, polyuria, polydipsia and goiter NEURO: No history (more content not included)... Normal [facility] CNOVon 07-29-2023 CNOV Office Visit ([facility] ) SORAYA BOWSER ([id number]) 1965 M Date Time Provider Department 07/29/23 9:20 AM MÓNICA WALTON [facility] During your visit today, we recorded the following information about you: Pulse Respiration Blood pressure Weight 84/minute 18/minute 118/78 120.9 kg Mónica Walton APRN.CNP 07/29/2023 10:32 AM Signed This is a 58 year old male who presents today with: Patient presents with: Follow Up: Weight loss HISTORY OF PRESENT ILLNESS: Sorayawilmer Bowser is a 58 year old male. Patient presents with: Follow Up: Weight loss Weight: Has been working on losing weight, has lost about 16 lbs since May. Doing 2 work outs daily at home. Eating whole foods. Cutting back on processed foods, higher carb foods. Increasing veggies. Feels like his weight loss has hit a plateau. Has not had any weight loss this week. Psych: History of bipolar. Following with psychiatrist, Ino Gupta. Taking Trintellix 10 mg, Depakote 500 mg, 2 tablets daily, Seroquel 100 mg twice. Migraine headaches: Found it was a reaction to medication, stopped medication and no longer has migraines GERD: Taking Prilosec 40 mg daily. Symptoms well controlled medication. HTN: Taking Norvasc 10 mg and propanolol 20 mg daily. Currently checking blood pressure at home, normal readings but refers getting 130's/80's. Tried increasing Lisinopril 20 mg ( took 2 tablets of the 10 mg) Blood pressure then was in 120/70. Would like to increase to the 20 mg. Denies chest pain, palpitations, dizziness, or edema. Lipids: Working on diet and lifestyle changes at home. Not currently taking any medication. Hypothyroidism: Taking Synthroid 50 mcg daily. Denies any difficulty swallowing, cold/heat intolerances. TSH was mildly elevated but returned back to normal after 6-8 weeks. ED: Using Viagra 50 mg as needed. PAST MEDICAL HISTORY: PAST MEDICAL HISTORY Diagnosis Date SHARI (acute kidney injury) (HCC) 12/27/2017 Alcohol abuse Anxiety Bipolar 1 disorder (HCC) Cellulitis and abscess of unspecified site 10/28/2014 Essential hypertension 07/20/2018 GERD (gastroesophageal reflux disease) Impingement syndrome of right shoulder 07/26/2013 Left elbow pain Leukocytosis 12/24/2017 Macrocytic anemia 12/24/2017 Pulmonary emboli (HCC) 12/2017 Pulmonary embolism, bilateral (HCC) 12/24/2017 Severe protein-calorie malnutrition (HCC) 12/24/2017 Shoulder pain, right Thrombocytosis 12/24/2017 Unintentional weight loss 12/24/2017 PAST SURGICAL HISTORY Procedure Laterality Date COLONOSCOPY FLX DX W/COLLJ SPEC WHEN PFRMD N/A 08/18/2020 Kedar Tariq--[facility]--repeat 10 years PAST SURGICAL HISTORY OF Right 1998 right wrist debridement (s/p infection of pins from repair) PICC LINE INSERTION (PICC TEAM) ([place]) 12/27/2017 ALLERGIES Patient has no known allergies. MEDICATIONS Current Outpatient Medications Medication Sig tamsulosin (FLOMAX) 0.4 mg Take 1 capsule by mouth once daily at bedtime levothyroxine (SYNTHROID) 75 mcg tablet Take 1 tablet by mouth once daily. Take on empty stomach. For Thyroid lisinopril (ZESTRIL) 10 mg tablet Take 1 tablet by mouth once daily. amLODIPine (NORVASC) 10 mg tablet Take 1 tablet by mouth once daily. folic acid 1 mg tablet Take 1 tablet by mouth once daily. omeprazole (PRILOSEC) 40 mg capsule Take 1 capsule by mouth once daily. sildenafil (VIAGRA) 50 mg tablet Take 1 tablet 30-60 minutes prior to intercourse by mouth. brexpiprazole (REXULTI) 2 mg tablet TAKE 1 TABLET BY MOUTH ONCE DAILY. STOP CAPLYTA QUEtiapine (SEROQUEL) 50 mg tablet Take 100 mg by mouth daily at bedtime. SUMAtriptan (IMITREX) 50 mg tablet Take 1 at the initiation of headache. May repeat in 2 hours if no relief. (Patient not taking: Reported on 02/25/2023) vortioxetine (TRINTELLIX) 5 mg tablet Take 1 tablet by mouth once daily. divalproex DR (DEPAKOTE) 500 mg EC tablet Take 2 tablets by mouth once daily. traZODone HCl (DESYREL) 300 mg tablet Take 1 tablet by mouth daily at bedtime. propranolol (INDERAL) 20 mg tablet Take 1 tablet by mouth once daily. triHEXYphenidyl (ARTANE) 2 mg tablet Take 2 mg by mouth three times daily. (Patient not taking: Reported on 01/21/2022) melatonin 10 mg tab Take 1 tablet by mouth daily at bedtime. No current facility-administered medications for this visit. FAMILY HISTORY Adopted: Yes Problem Relation Age of Onset Cancer Father other (congestive heart failure) Maternal Grandmother No Known Problems Half-brother No Known Problems Half-brother Asthma Son No Known Problems Daughter Social History Tobacco Use Smoking status: Never Smokeless tobacco: Never Vaping Use Vaping Use: Never used Substance Use Topics Alcohol use: Yes Comment: Socially Drug use: No REVIEW OF SYSTEMS GENERAL: No weight loss, malaise or fevers/chills HEENT: Negative for frequent or significant headaches, No changes i (more content not included)... Normal [facility] Ammonia Plas-sCncon 07-22-19 24 Ammonia (P) [Moles/Vol] 43 umol/L Normal 16-60 [facility] Comment on above: Order Comment: Speci men Type: BLOOD SPECIMEN Ordering Facility: [facility] Address: [address] [place] [address] Performed By: #### 1 6362-6 #### [facility] CLIA [id number] [address] [place] [address] [place] Comprehensive metabolic 2000 panelon 07-22-2023 Albumin [Mass/Vol] 4.3 g/dL Normal 3.9-4.9 [facility] Comment on above: Order Comment: Speci men Type: BLOOD SPECIMEN Ordering Facility: [facility] Address: [address] [place] [address] Performed By: #### 5 5454-3 #### [facility] CLIA [id number] [address] [place] [address] [place] ALP [Catalytic activity/Vol] 58 U/L Normal 38-113 [facility] Comment on above: Order Comment: Speci men Type: BLOOD SPECIMEN Ordering Facility: [facility] Address: [address] [place] [address] Performed By: #### 5 5454-3 #### [facility] CLIA [id number] [address] [place] [address] [place] ALT [Catalytic activity/Vol] 53 U/L Normal 10-54 [facility] Comment on above: Order Comment: Speci men Type: BLOOD SPECIMEN Ordering Facility: [facility] Address: [address] [place] [address] Performed By: #### 5 5454-3 #### [facility] CLIA [id number] [address] [place], [place] [id number] [place] Anion gap [Moles/Vol] 12 mmol/L Normal 9-18 [facility] Comment on above: Order Comment: Speci men Type: BLOOD SPECIMEN Ordering Facility: [facility] Address: [address] [place] [address] Performed By: #### 5 5454-3 #### [facility] CLIA [id number] [address] [place] [address] [place] AST [Catalytic activity/Vol] 34 U/L Normal 14-40 [facility] Comment on above: Order Comment: Speci men Type: BLOOD SPECIMEN Ordering Facility: [facility] Address: [address] [place] [address] Performed By: #### 5 5454-3 #### [facility] CLIA [id number] [address] [place] [address] [place] Bilirubin [Mass/Vol] 0.4 mg/dL Normal 0.2-1.3 [facility] Comment on above: Order Comment: Speci men Type: BLOOD SPECIMEN Ordering Facility: [facility] Address: [address] [place] [address] Performed By: #### 5 5454-3 #### [facility] CLIA [id number] [address] [place] [address] [place] Calcium [Mass/Vol] 9.6 mg/dL Normal 8.5-10.2 [facility] Comment on above: Order Comment: Speci men Type: BLOOD SPECIMEN Ordering Facility: [facility] Address: [address] [place] [address] Performed By: #### 5 5454-3 #### [facility] CLIA [id number] [address] [place] [address] [place] Chloride [Moles/Vol] 101 mmol/L Normal 97-105 [facility] Comment on above: Order Comment: Speci men Type: BLOOD SPECIMEN Ordering Facility: [facility] Address: [address] [place] [address] Performed By: #### 5 5454-3 #### [facility] CLIA [id number] [address] [place] [address] [place] CO2 [Moles/Vol] 25 mmol/L Normal 22-30 [facility] Comment on above: Order Comment: Speci men Type: BLOOD SPECIMEN Ordering Facility: [facility] Address: [address] [place] [address] Performed By: #### 5 5454-3 #### [facility] CLIA [id number] [address] [place] [address] [place] [facility] Creatinine [Mass/Vol] 1.16 mg/dL Normal 0.73-1.22 [facility] Comment on above: Order Comment: Davion ewing Type: BLOOD SPECIMEN Ordering Facility: [facility] Address: [address] [place] [address] Performed By: #### 5 5454-3 #### [facility] CLIA [id number] [address] [place] [address] [place] Creatinine and Glomerular filtration rate.predicted panel (S/P/Bld) 73 mL/min/1.73m??? Normal >=60 [facility] Comment on above: Order Comment: Davion ewing Type: BLOOD SPECIMEN Ordering Facility: [facility] Address: [address] [place] [address] Result Comment: Anai mated Glomerular Filtration Rate (eGFR) is calculated using the 2020 CKD-EPI creatinine equation. This equation utilizes serum creatinine, sex, and age as parameters. The creatinine assay has traceable calibration to isotope dilution-mass spectrometry. Refer to KDIGO guidelines for clinical interpretation. In patients with unstable renal function, e.g. those with acute kidney injury, the eGFR may not accurately reflect actual GFR. Performed By: #### 5 5454-3 #### [facility] CLIA [id number] [address] [place] [address] [place] Glucose [Mass/Vol] 86 mg/dL Normal 74-99 [facility] Comment on above: Order Comment: Davion ewing Type: BLOOD SPECIMEN Ordering Facility: [facility] Address: [address] [place] [address] Result Comment: The [place] [employer] (ADA) provides guidance for cutoff values for fasting glucose and random glucose. The ADA defines fasting as no caloric intake for at least 8 hours. Fasting plasma glucose results between 100 to 125 mg/dL indicate increased risk for diabetes (prediabetes). Fasting plasma glucose results greater than or equal to 126 mg/dL meet the criteria for diagnosis of diabetes. In the absence of unequivocal hyperglycemia, results should be confirmed by repeat testing. In a patient with classic symptoms of hyperglycemia or hyperglycemic crisis, random plasma glucose results greater than or equal to 200 mg/dL meet the criteria for diagnosis of diabetes. Reference: Standards of Medical Care in Diabetes 2016, [place] [employer]. Diabetes Care. 2016.39(Suppl 1). Performed By: #### 5 5454-3 #### [facility] CLIA [id number] [address] [place] [address] [place] Potassium [Moles/Vol] 4.8 mmol/L Normal 3.7-5.1 [facility] Comment on above: Order Comment: Speci men Type: BLOOD SPECIMEN Ordering Facility: [facility] Address: [address] [place] [address] Performed By: #### 5 5454-3 #### [facility] CLIA [id number] [address] [place] [address] [place] Protein [Mass/Vol] 7.2 g/dL Normal 6.3-8.0 [facility] Comment on above: Order Comment: Adrieni men Type: BLOOD SPECIMEN Ordering Facility: [facility] Address: [address] [place] [address] Performed By: #### 5 5454-3 #### [facility] CLIA [id number] [address] [place] [address] [place] Sodium [Moles/Vol] 138 mmol/L Normal 136-144 [facility] Comment on above: Order Comment: Speci men Type: BLOOD SPECIMEN Ordering Facility: [facility] Address: [address] [place] [address] Performed By: #### 5 5454-3 #### [facility] CLIA [id number] [address] [place] [address] [place] Urea nitrogen [Mass/Vol] 12 mg/dL Normal 9-24 [facility] Comment on above: Order Comment: Speci men Type: BLOOD SPECIMEN Ordering Facility: [facility] Address: [address] [place] [address] Performed By: #### 5 5454-3 #### [facility] CLIA [id number] [address] [place] [address] [place] T4 Free SerPl-mCncon 024 Free T4 [Mass/Vol] 1.4 ng/dL Normal 0.9-1.7 [facility] Comment on above: Order Comment: Speci men Type: BLOOD SPECIMEN Ordering Facility: [facility] Address: [address] [place] [address] Performed By: #### 5 5454-3 #### [facility] CLIA [id number] [address] [place] [address] [place] TSH SerPl-aCncon 07-22-2023 TSH Qn 3.040 m[IU]/L Normal 0.270-4.200 [facility] Comment on above: Order Comment: Speci men Type: BLOOD SPECIMEN Ordering Facility: [facility] Address: [address] [place] [address] Performed By: #### 5 5454-3 #### [facility] CLIA [id number] [address] [place] [address] [place] Valproate SerPl-mCncon 07-21 Valproate [Mass/Vol] 53.2 ug/mL Normal 50.0-100.0 [facility] Comment on above: Order Comment: Speci men Type: BLOOD SPECIMENOrdering Facility: [facility] Address: [address] [place] [address] Result Comment: Refe rence ranges and high/low indicator flags are provided as general guidelines only. The treating physician must determine appropriate target levels/dosing based on the specific clinical situation. 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 Patient was offered a virtual/telemedicine appointment in lieu of an office visit due to recommendations to reduce patient exposure to COVID-19. Telephone was used for evaluation of this patient. Patient agrees to the visit: Yes Patient Location: [place] I have communicated my name and active licensure. The patient's identity and physical location were verified at the time of this visit. Either the patient or their legal litigation claim representative has been informed of the risks and benefits of -- and alternatives to -- treatment through a remote evaluation and consents to proceed with the evaluation remotely. HPI Soraya Bowser is a 58 year old male who is contacted today for a phone visit This is an established patient of Dr. Alirio Armas MD Reports: Discuss lab results and weight. Was seen in the office earlier this month for concerns for weight gain. Has been working on lifestyle changes at home. Labs revealed slightly increased TSH. Currently taking Synthroid 50 mcg daily. Has lost 6 lbs, increased exercise. Limiting alcohol use. Blood pressue: 140/80's-120/80's. Past medical history, appointments, medications, allergies reviewed 06/22/2023 Previous Medical History PAST MEDICAL HISTORY Diagnosis Date SHARI (acute kidney injury) (HCC) 12/27/2017 Alcohol abuse Anxiety Bipolar 1 disorder (HCC) Cellulitis and abscess of unspecified site 10/28/2014 Essential hypertension 07/20/2018 GERD (gastroesophageal reflux disease) Impingement syndrome of right shoulder 07/26/2013 Left elbow pain Leukocytosis 12/24/2017 Macrocytic anemia 12/24/2017 Pulmonary emboli (HCC) 12/2017 Pulmonary embolism, bilateral (HCC) 12/24/2017 Severe protein-calorie malnutrition (HCC) 12/24/2017 Shoulder pain, right Thrombocytosis 12/24/2017 Unintentional weight loss 12/24/2017 Previous Surgical History PAST SURGICAL HISTORY Procedure Laterality Date COLONOSCOPY FLX DX W/COLLJ SPEC WHEN PFRMD N/A 08/18/2020 Kedar Tariq--[facility]--repeat 10 years PAST SURGICAL HISTORY OF Right 1998 right wrist debridement (s/p infection of pins from repair) PICC LINE INSERTION (PICC TEAM) ([place]) 12/27/2017 Family History FAMILY HISTORY Adopted: Yes Problem Relation Age of Onset Cancer Father other (congestive heart failure) Maternal Grandmother No Known Problems Half-brother No Known Problems Half-brother Asthma Son No Known Problems Daughter Patient Allergies ALLERGIES No Known Allergies Current Medications Current Outpatient Medications on File Prior to Visit Medication Sig lisinopril (ZESTRIL) 10 mg tablet Take 1 tablet by mouth once daily. ketoconazole (NIZORAL) 2 % shampoo Apply to affected area two times a week. amLODIPine (NORVASC) 10 mg tablet Take 1 tablet by mouth once daily. folic acid 1 mg tablet Take 1 tablet by mouth once daily. omeprazole (PRILOSEC) 40 mg capsule Take 1 capsule by mouth once daily. tamsulosin (FLOMAX) 0.4 mg Take 1 capsule by mouth daily at bedtime. sildenafil (VIAGRA) 50 mg tablet Take 1 tablet 30-60 minutes prior to intercourse by mouth. brexpiprazole (REXULTI) 2 mg tablet TAKE 1 TABLET BY MOUTH ONCE DAILY. STOP CAPLYTA QUEtiapine (SEROQUEL) 50 mg tablet Take 100 mg by mouth daily at bedtime. SUMAtriptan (IMITREX) 50 mg tablet Take 1 at the initiation of headache. May repeat in 2 hours if no relief. (Patient not taking: Reported on 02/25/2023) vortioxetine (TRINTELLIX) 5 mg tablet Take 1 tablet by mouth once daily. divalproex DR (DEPAKOTE) 500 mg EC tablet Take 2 tablets by mouth once daily. traZODone HCl (DESYREL) 300 mg tablet Take 1 tablet by mouth daily at bedtime. propranolol (INDERAL) 20 mg tablet Take 1 tablet by mouth once daily. levothyroxine (SYNTHROID) 50 mcg tablet Take 1 tablet by mouth once daily. Take on empty stomach. For Thyroid. triHEXYphenidyl (ARTANE) 2 mg tablet Take 2 mg by mouth three times daily. (Patient not taking: Reported on 01/21/2022) melatonin 10 mg tab Take 1 tablet by mouth daily at bedtime. No current facility-administered medications on file prior to visit. Social History Social History Tobacco Use Smoking status: Never Smokeless tobacco: Never Vaping Use Vaping Use: Never used Substance Use Topics Alcohol use: Yes Comment: Socially Drug use: No Review of Symptoms GENERAL: No malaise or fatigue. No fevers. HEENT: Negative for headaches No eye discharge or redness No earaches No sore throat Nose POS/NEG for congestion and nasal (more content not included)... Normal [facility] Comprehensive metabolic 2000 panelon 06-13-2023 Albumin [Mass/Vol] 4.5 g/dL Normal 3.9-4.9 [facility] Comment on above: Order Comment: Speci men Type: BLOOD SPECIMENOrdering Facility: [facility] Address: [address] [place] [address] Performed By: #### 3 024-7, 14142-8, 21964-9, 3016-3 ####[facility] LABCLIA [id number] [place] [address] [place] ALP [Catalytic activity/Vol] 59 U/L Normal 38-113 [facility] Comment on above: Order Comment: Speci men Type: BLOOD SPECIMENOrdering Facility: [facility] Address: [address] [place] [address] Performed By: #### 3 024-7, 36100-9, 81830-5, 3016-3 ####[facility] LABCLIA [id number] [place] [address] [place] ALT [Catalytic activity/Vol] 49 U/L Normal 10-54 [facility] Comment on above: Order Comment: Speci men Type: BLOOD SPECIMENOrdering Facility: [facility] Address: [address] [place] [address] Performed By: #### 3 024-7, 24922-6, 46346-0, 3016-3 ####[facility] LABCLIA [id number] [place] [address] [place] Anion gap [Moles/Vol] 13 mmol/L Normal 9-18 [facility] Comment on above: Order Comment: Speci men Type: BLOOD SPECIMENOrdering Facility: [facility] Address: [address] [place] [address] Performed By: #### 3 024-7, 64429-1, 17261-3, 3016-3 ####[facility] LABCLIA [id number] [place] [address] [place] AST [Catalytic activity/Vol] 52 U/L High 14-40 [facility] Comment on above: Order Comment: Speci men Type: BLOOD SPECIMENOrdering Facility: [facility] Address: [address] [place] [address] Performed By: #### 3 024-7, 84389-3, 46616-4, 3016-3 ####[facility] LABCLIA [id number] [place] [address] [place] Bilirubin [Mass/Vol] 0.8 mg/dL Normal 0.2-1.3 [facility] Comment on above: Order Comment: Speci men Type: BLOOD SPECIMENOrdering Facility: [facility] Address: [address] [place] [address] Performed By: #### 3 024-7, 40987-8, 38097-9, 3016-3 ####[facility] LABCLIA [id number] [place] [address] [place] Calcium [Mass/Vol] 10.0 mg/dL Normal 8.5-10.2 [facility] Comment on above: Order Comment: Speci men Type: BLOOD SPECIMENOrdering Facility: [facility] Address: [address] [place] [address] Performed By: #### 3 024-7, 22880-9, 59792-3, 3016-3 ####[facility] LABCLIA [id number] [place] [address] [place] Chloride [Moles/Vol] 102 mmol/L Normal 97-105 [facility] Comment on above: Order Comment: Speci men Type: BLOOD SPECIMENOrdering Facility: [facility] Address: [address] [place] [address] Performed By: #### 3 024-7, 63241-4, 88435-2, 3016-3 ####[facility] LABCLIA [id number] [place] [address] [place] CO2 [Moles/Vol] 24 mmol/L Normal 22-30 [facility] Comment on above: Order Comment: Speci men Type: BLOOD SPECIMENOrdering Facility: [facility] Address: [address] [place] [address] Performed By: #### 3 024-7, 92659-1, 19413-0, 3016-3 ####[facility] LABCLIA [id number] [place] [address] [place] Creatinine [Mass/Vol] 1.04 mg/dL Normal 0.73-1.22 [facility] Comment on above: Order Comment: Speci men Type: BLOOD SPECIMENOrdering Facility: [facility] Address: [address] [place] [address] Performed By: #### 3 024-7, 26970-2, 54407-0, 3016-3 ####[facility] LABCLIA [id number] [place] [address] [place] Creatinine and Glomerular filtration rate.predicted panel (S/P/Bld) 83 mL/min/1.73m??? Normal >=60 [facility] Comment on above: Order Comment: Speci men Type: BLOOD SPECIMENOrdering Facility: [facility] Address: [address] [place] [address] Result Comment: Anai mated Glomerular Filtration Rate (eGFR) is calculated using the 2020 CKD-EPI creatinine equation. This equation utilizes serum creatinine, sex, and age as parameters. The creatinine assay has traceable calibration to isotope dilution-mass spectrometry. Refer to KDIGO guidelines for clinical interpretation. In patients with unstable renal function, e.g. those with acute kidney injury, the eGFR may not accurately reflect actual GFR. Performed By: #### 3 024-7, 48814-4, 39504-6, 3016-3 ####[facility] LABCLIA [id number] [place] [address] [place] Glucose [Mass/Vol] 107 mg/dL High 74-99 [facility] Comment on above: Order Comment: Davion ewing Type: BLOOD SPECIMENOrdering Facility: [facility] Address: [address] [place] [address] Result Comment: The [place] Diabetes Association (ADA) provides guidance for cutoff values for fasting glucose and random glucose. The ADA defines fasting as no caloric intake for at least 8 hours. Fasting plasma glucose results between 100 to 125 mg/dL indicate increased risk for diabetes (prediabetes). Fasting plasma glucose results greater than or equal to 126 mg/dL meet the criteria for diagnosis of diabetes. In the absence of unequivocal hyperglycemia, results should be confirmed by repeat testing. In a patient with classic symptoms of hyperglycemia or hyperglycemic crisis, random plasma glucose results greater than or equal to 200 mg/dL meet the criteria for diagnosis of diabetes. Reference: Standards of Medical Care in Diabetes 2016, [place] [employer] Association. Diabetes Care. 2016.39(Suppl 1). Performed By: #### 3 024-7, 62308-7, 51858-9, 3016-3 ####[facility] LABCLIA [id number] [place] [id number] [place] Potassium [Moles/Vol] 4.2 mmol/L Normal 3.7-5.1 [facility] Comment on above: Order Comment: Davion ewing Type: BLOOD SPECIMENOrdering Facility: [facility] Address: [address] [place] [address] Performed By: #### 3 024-7, 06584-6, 86925-9, 3016-3 ####[facility] LABCLIA [id number] [place] [address] [place] Protein [Mass/Vol] 7.2 g/dL Normal 6.3-8.0 [facility] Comment on above: Order Comment: Speci men Type: BLOOD SPECIMENOrdering Facility: [facility] Address: [address] [place] [address] Performed By: #### 3 024-7, 61018-7, 68505-5, 3016-3 ####[facility] LABCLIA [id number] [place] [address] [place] Sodium [Moles/Vol] 139 mmol/L Normal 136-144 [facility] Comment on above: Order Comment: Speci men Type: BLOOD SPECIMENOrdering Facility: [facility] Address: [address] [place] [address] Performed By: #### 3 024-7, 52351-8, 51964-9, 3016-3 ####[facility] LABCLIA [id number] [place] [address] [place] Urea nitrogen [Mass/Vol] 12 mg/dL Normal 9-24 [facility] Comment on above: Order Comment: Speci men Type: BLOOD SPECIMENOrdering Facility: [facility] Address: [address] [place] [address] Performed By: #### 3 024-7, 81496-8, 78034-8, 3016-3 ####[facility] LABIA [id number] [place] [address] [place] NT-proBNP [facility] 06-13 Natriuretic peptide.B prohormone N-Terminal [Mass/Vol] 46 pg/mL Normal <125 [facility] Comment on above: Order Comment: Speci men Type: BLOOD SPECIMENOrdering Facility: [facility] Address: [place] [address] Performed By: #### 3 024-7, 64607-8, 19838-4, 3016-3 ####[facility] LABCLIA [id number] [place] [address] [place] T4 Free SerPl-mCncon 024 Free T4 [Mass/Vol] 1.3 ng/dL Normal 0.9-1.7 [facility] Comment on above: Order Comment: Speci men Type: BLOOD SPECIMENOrdering Facility: [facility] Address: [place] [address] Performed By: #### 3 024-7, 32988-9, 16172-7, 3016-3 ####[facility] LABCLIA [id number] [place] [address] [place] TSH SerPl-aCncon 06-13-2023 TSH Qn 4.660 m[IU]/L High 0.270-4.200 [facility] Comment on above: Order Comment: Speci men Type: BLOOD SPECIMENOrdering Facility: [facility] Address: [place] [address] Performed By: #### 3 024-7, 18737-9, 32583-8, 3016-3 ####[facility] LABCLIA [id number] [place] [address] [place] CNOVon 06-09-2023 CNOV Office Visit ([facility] ) SORAYA BOWSER ([id number]) 1965 M Date Time Provider Department 06/09/23 9:00 AM MÓNICA WALTONWS During your visit today, we recorded the following information about you: Pulse Respiration Blood pressure Weight 89/minute 16/minute 142/72 127.9 kg Mónica Walton APRN.JAC 06/09/2023 10:46 AM Signed This is a 58 year old male who presents today with: Patient presents with: Acute Visit: weight gain HISTORY OF PRESENT ILLNESS: Soraya Bowser is a 58 year old male. Patient presents with: Acute Visit: weight gain Here in the office to discuss weight. Started to exercise at home, 5 days per week a couple weeks ago. Has been working on dietary changes, trying eat lean meat and veggies. Watching processed foods. Gained about 20 lbs in a month. Has noticed some SOB in the past month. Mild lower leg edema. HTN: Blood pressure has been elevated, 140's/70's. Taking Amlodipine 10 mg daily. No chest pain, palpitations, or dizziness. PAST MEDICAL HISTORY: PAST MEDICAL HISTORY Diagnosis Date SHARI (acute kidney [facility]) [facility] 12/27/2017 Alcohol abuse Anxiety Bipolar 1 disorder ([facility]) Cellulitis and abscess of unspecified site 10/28/2014 Essential hypertension 07/20/2018 GERD (gastroesophageal reflux disease) Impingement syndrome of right shoulder 07/26/2013 Left elbow pain Leukocytosis 12/24/2017 Macrocytic anemia 12/24/2017 Pulmonary emboli (HCC) 12/2017 Pulmonary embolism, bilateral (HCC) 12/24/2017 Severe protein-calorie malnutrition (HCC) 12/24/2017 Shoulder pain, right Thrombocytosis 12/24/2017 Unintentional weight loss 12/24/2017 PAST SURGICAL HISTORY Procedure Laterality Date COLONOSCOPY FLX DX W/COLLJ SPEC WHEN PFRMD N/A 08/18/2020 Kedar Tariq--[facility]--repeat 10 years PAST SURGICAL HISTORY OF Right 1998 right wrist debridement (s/p infection of pins from repair) PICC LINE INSERTION (PICC TEAM) ([place]) 12/27/2017 ALLERGIES Patient has no known allergies. MEDICATIONS Current Outpatient Medications Medication Sig ketoconazole (NIZORAL) 2 % shampoo Apply to affected area two times a week. amLODIPine (NORVASC) 10 mg tablet Take 1 tablet by mouth once daily. folic acid 1 mg tablet Take 1 tablet by mouth once daily. omeprazole (PRILOSEC) 40 mg capsule Take 1 capsule by mouth once daily. tamsulosin (FLOMAX) 0.4 mg Take 1 capsule by mouth daily at bedtime. sildenafil (VIAGRA) 50 mg tablet Take 1 tablet 30-60 minutes prior to intercourse by mouth. brexpiprazole (REXULTI) 2 mg tablet TAKE 1 TABLET BY MOUTH ONCE DAILY. STOP CAPLYTA QUEtiapine (SEROQUEL) 50 mg tablet Take 100 mg by mouth daily at bedtime. SUMAtriptan (IMITREX) 50 mg tablet Take 1 at the initiation of headache. May repeat in 2 hours if no relief. (Patient not taking: Reported on 02/25/2023) vortioxetine (TRINTELLIX) 5 mg tablet Take 1 tablet by mouth once daily. divalproex DR (DEPAKOTE) 500 mg EC tablet Take 2 tablets by mouth once daily. traZODone HCl (DESYREL) 300 mg tablet Take 1 tablet by mouth daily at bedtime. propranolol (INDERAL) 20 mg tablet Take 1 tablet by mouth once daily. levothyroxine (SYNTHROID) 50 mcg tablet Take 1 tablet by mouth once daily. Take on empty stomach. For Thyroid. triHEXYphenidyl (ARTANE) 2 mg tablet Take 2 mg by mouth three times daily. (Patient not taking: Reported on 01/21/2022) melatonin 10 mg tab Take 1 tablet by mouth daily at bedtime. No current facility-administered medications for this visit. FAMILY HISTORY Adopted: Yes Problem Relation Age of Onset Cancer Father other (congestive heart failure) Maternal Grandmother No Known Problems Half-brother No Known Problems Half-brother Asthma Son No Known Problems Daughter Social History Tobacco Use Smoking status: Never Smokeless tobacco: Never Vaping Use Vaping Use: Never used Substance Use Topics Alcohol use: Yes Comment: Socially Drug use: No REVIEW OF SYSTEMS GENERAL: + Weight Gain HEENT: Negative for frequent or significant headaches, No changes in hearing or vision. NECK: Negative for lumps, goiter, pain and significant neck swelling RESPIRATORY: + SOB CARDIOVASCULAR: Negative for chest pain, leg swelling, orthopnea, or palpitations GI: No nausea, vomiting, or diarrhea/constipation. No hematochezia/melena. No heartburn or reflux symptoms. : No history of dysuria, frequency or incontinence MUSCULOSKELETAL: Negative for joint pain or swelling. SKIN: Negative for lesions, rash, and itching ENDOCRINE: Negative for cold or heat intolerance, polyuria, polydipsia and goiter NEURO: No history of headaches, syncope, paralysis, seizures or tremors MOOD: Negative for depression, anxiety, or suicidal ideation. EXAM: BP 142/72 Pulse 89 Resp 16 Wt 127.9 kg (282 lb) SpO2 97% BMI 41.06 kg/m? PHYSICAL EXAM: General Appearance: Well appearing, alert, in no acute distress, well-hy (more content not included)... Normal [facility] CNOVon 05-03-2023 [facility] SORAYA BOWSER Coty ([id number]) 1965 M Date Time Provider Department 05/03/23 8:40 AM THEE ROMANO [facility] During your visit today, we recorded the following information about you: Pulse Respiration Blood pressure Weight 78/minute 16/minute 153/76 119 kg Thee Romano APRN.[facility] 05/03/2023 8:56 AM Signed Chief Complaint Patient presents with: Derm Problem: Red, irritated, dry areas on face AND scalp x 1 year; worsens during winter season HPI Soraya Bowser is a 57 year old male who presents here today for Above Complaints. Patient is here for skin complaint. Present for approximately 1 year. Location is on his scalp, eyebrows, and between eyes. Also a small amount on his mustache. Described as red, irritated. Not really itchy. Describes some flakiness. Worse in the winter months. Has not applied anything to the area except for lotion. Ezekiel had recommended he follow-up. No known history of eczema or psoriasis. Past medical history, appointments, medications, allergies reviewed. EXAM: BP 153/76 Pulse 78 Resp 16 Wt 119 kg (262 lb 6.4 oz) SpO2 97% BMI 38.21 kg/m? General Appearance: Well appearing, alert, in no acute distress, well-hydrated, well nourished.. Skin: Area between eyebrows is red, flaking. Extending into the eyebrows. Small amount of red irritation in his mustache, goatee. In his scalp he has multiple areas of redness, scaliness, flakiness. They are not painful when palpated. No pustules present.. ASSESSMENT/PLAN: 1. Skin lesion - ICD9: 709.9, ICD10: L98.9 (primary diagnosis) - CONSULT TO DERMATOLOGY 2. Skin irritation - ICD9: 709.9, ICD10: R23.8 -Unclear etiology. Possible etiologies include eczema, psoriasis of the scalp, or fungal. Trial ketoconazole shampoo with rubbing into scalp, area in between eyes and eyebrows. See dermatology if not improving. Gave recommendations of [facility] or [facility] in [place] - CONSULT TO DERMATOLOGY - KETOCONAZOLE 2 % SHAMPOO Thee Romano APRN.TRICOT KNITTING MACHINE OPERATOR partly generated using [employer] voice recognition dictation and may contain some misspelled or inaccurate words missed on review. Thee Romano APRN.TRICOT KNITTING MACHINE OPERATOR 05/03/2023 8:50 AM Signed [facility] Located in: [place] [facility] Address: [address], [place] [address] [facility] Address: [address], [place] [address] Hours: Open ? Closes 5?PM Allergies As of Date: 05/03/2023 (No Known Allergies) Date Reviewed: 05/03/2023 Reviewed by: Melody Smith MA - Fully Assessed Reason for Visit: Derm Problem [33] Cmt: Red, irritated, dry areas on face AND scalp x 1 year; worsens during winter season Primary Visit Diagnosis:Skin lesion [L98.9] Other Visit Diagnosis:Skin irritation [R23.8] Order(s):CONSULT TO DERMATOLOGY [9006] Order #: [id number]: 1 FUTURE ketoconazole (NIZORAL) 2 % shampooApply to affected area two times a week.Disp: 120 mLRfl: 0 Prescriptions as of 05/03/2023 - ketoconazole (NIZORAL) 2 % shampoo Apply to affected area two times a week. - amLODIPine (NORVASC) 10 mg tablet Take 1 tablet by mouth once daily. - folic acid 1 mg tablet Take 1 tablet by mouth once daily. - omeprazole (PRILOSEC) 40 mg capsule Take 1 capsule by mouth once daily. - tamsulosin (FLOMAX) 0.4 mg Take 1 capsule by mouth daily at bedtime. - sildenafil (VIAGRA) 50 mg tablet Take 1 tablet 30-60 minutes prior to intercourse by mouth. - brexpiprazole (REXULTI) 2 mg tablet TAKE 1 TABLET BY MOUTH ONCE DAILY. STOP CAPLYTA - QUEtiapine (SEROQUEL) 50 mg tablet Take 100 mg by mouth daily at bedtime. - SUMAtriptan (IMITREX) 50 mg tablet Take 1 at the initiation of headache. May repeat in 2 hours if no relief. - vortioxetine (TRINTELLIX) 5 mg tablet Take 1 tablet by mouth once daily. - divalproex DR (DEPAKOTE) 500 mg EC tablet Take 2 tablets by mouth once daily. - traZODone HCl (DESYREL) 300 mg tablet Take 1 tablet by mouth daily at bedtime. - propranolol (INDERAL) 20 mg tablet Take 1 tablet by mouth once daily. - levothyroxine (SYNTHROID) 50 mcg tablet Take 1 tablet by mouth once daily. Take on empty stomach. For Thyroid. - triHEXYphenidyl (ARTANE) 2 mg tablet Take 2 mg by mouth three times daily. - melatonin 10 mg tab Take 1 tablet by mouth daily at bedtime. Meds Comments as of 05/11/2018: Uses Melatonin 10 mg hs Problem List As Of Date 05/03/2023 Noted Resolved Anxiety [F41.9] 02/13/2014 GERD (gastroesophageal reflux disease) [K21.9] 02/06/2015 Alcohol abuse [F10.10] 03/17/2015 Diarrhea [R19.7] 12/22/2016 12/28/2017 Change in bowel habit [R19.4] 12/22/2016 History of esophagogastroduodenoscopy (EGD) [Z9*12/22/2016 Obesity, Class I, BMI 30-34.9 [E66.9] 12/23/2017 Lung abscess (HCC) [J85.2] 12/23/2017 01/03/2018 B (more content not included)... Normal [facility] 01-03-2018 ALLIED [facility] HNO ID: [id number] thor: Roxy (Rn) Roshan RNService: Home Care ServicesAuthor Type: Registered NurseType: Allied HealthFiled: 01/03/2018 3:21 PMNote Text:SIEBEL ADMINISTRATOR NOTESERVICE DATE: 01/03/2018SERVICE TIME: 3:20 PMPatient Choice:Spoke with patient at bedside.Discussed home health care services.Patient given a choice - chose [facility].Discussed homebound requirements with pt.Infusion:Paitent choice of home infusion company: [facility] discussed with pt by this nurse.Education of need for self-administration of infusion completed.Person agreeable to learn infusion: pt.SIGNATURE: Roxy Islas RN PATIENT NAME: [facility]ari [facility]DATE: January 03, 2018 : 3:19 PM Normal [facility] HNO ID: [id number] thor: RANDI Benson Lpnervice: Home Care ServicesAuthor Type: LICENSED NURSEType: [facility] CenterFiled: 01/03/2018 2:10 PMNote Text:SIEBEL ADMINISTRATOR NOTESERVICE DATE: 01/03/2018SERVICE TIME: 1410Discharge:Aware of Discharge home todayPhysician order placed for Home Care ServicesRed [facility] Agency: SStart of care date: 01/04Patient/Family agree to discharge plan: yesInfusion:Infusion type: AntibioticsPaitent choice of home infusion company: CCFSIGNATURE: Mera Urrutia LPN PATIENT NAME: Soraya LaoTE: January 03, 2018 : 2:10 PM Normal [facility] Basic Panelon 01-03-2018 Creatinine mass conc 2.31 mg/dL High 0.67-1.17 [facility] Comment on above: Performed By: #### H A1C ####[place] [address] Anion gap 3 molar conc 10 mmol/L Normal 01-05 [facility] Comment on above: Performed By: #### H A1C ####[facility] [place], [place] [address] CO2 molar conc 26 mmol/L Normal 21-32 [facility] Comment on above: Performed By: #### H A1C ####[facility] [place], [place] [address] Glucose mass conc 82 mg/dL Normal 70-99 [facility] Comment on above: Performed By: #### H A1C ####[facility] [place], [place] [address] Urea nitrogen mass conc 15 mg/dL Normal 7-18 [facility] Comment on above: Performed By: #### H A1C ####[address] [address] Calcium mass conc 8.7 mg/dL Normal 8.5-10.1 [facility] Comment on above: Performed By: #### H A1C ####[address] [address] Chloride molar conc 112 mmol/L High 98-107 [facility] Comment on above: Performed By: #### H A1C ####[place] [address] Potassium molar conc 3.3 mmol/L Low 3.5-5.1 [facility] Comment on above: Performed By: #### H A1C ####[address] [address] Sodium molar conc 145 mmol/L Normal 136-145 [facility] Comment on above: Performed By: #### H A1C ####[address] [address] CASE MANAGEMon 01-03-2018 CASE MANAGEM HNO ID: [id number] thor: Kaila (Rn) VALARIE Sarmientoervice: Care ManagementAuthor Type: Registered NurseType: Care Mgt Progress NoteFiled: 01/03/2018 3:24 PMNote Text:CARE MANAGEMENT DISCHARGE NOTESERVICE DATE: 01/03/2018SERVICE TIME: 3:19 PM LOS: 11 daysAdmission Date: 12/23/2017DISCHARGE ARRANGEMENT (list agency and phone number)Extended care facilityProvider: [facility] cAREGIVER ASSESSMENT:Caregiver is ready, willing and able to meet the patient's needs asrecommended by the inter-professional team? YesPatient's transition needs and plan for meeting these needs: SNFDoes the patient have an acute stroke diagnosis, or has the patient had astroke during this admission? NoHANDOFF COMMUNICATION:RN to provide reportTRANSPORTATION ARRANGEMENTS:Mode of Transportation: AmbuletteTransportation Agency and Phone #: [facility] ( [facility] )[phone] / [phone].Date of Trip: 01/03/18Type of Service: BLS Non-emergencyIs Patient Medicaid Pending: NoDiscussion of financial coverage occurred with Patient .[employer] Associate Location: [place] [address]ODestination[facility]in[facility] Management Responsibility: TBDEstimated Charge: TBDApproving Rotary Derrick Operator:ADDITIONAL CONTACT RESOURCES: NonePrecert obtained. Discharge to [facility] today. [facility] transporting[facility] at 17:30 via ambulette. Patient/family aware.SIGNATURE: Kaila Sarmiento RN PATIENT NAME: Soraya BowserDATE: January 03, 2018 : 3:19 PM PAGER/CONTACT #: [phone] [facility] CASE MANAGEM HNO ID: [id number] thor: Kaila (Marysol) Torsten, RNService: Care ManagementAuthor Type: Registered NurseType: Care Mgt Progress NoteFiled: 01/03/2018 2:44 PMNote Text:CARE MANAGEMENT PROGRESS NOTESERVICE DATE: 01/03/2018SERVICE TIME: 2:43 PM LOS: 11 daysNeeds Prior to Discharge: Discharge Transportation;Home Care Order;IVAntibiotics;Pharmacy Bedside DeliveryNotes reviewed. Anticipate discharge to home today with HC and IV ABX. VNSaware of pending discharge.SIGNATURE: Kaila Sarmiento RN PATIENT NAME: Soraya BowserDATE: January 03, 2018 : 2:43 PM PAGER/CONTACT #: [phone] [facility] CHEST 1 VIEWon 01-03-2018 CHEST 1 VIEW Performed at [facility] APPROVED BY: Marco Soria MD PORTABLE FRONTAL CHEST, 0624 HOURS: CLINICAL INDICATION: Follow-up pleural effusion. COMPARISON: Daily prior chest radiographs and CT chest study 12/29/2017. A left upper extremity PICC line appears in unaltered position terminating in profile with the SVC at the level the azygos vein. There is a persistent pleural thickening and/or loculated pleural fluid seen along the lateral right chest wall. There is persistent parenchymal opacity involving the right mid and lower lung. The right hemidiaphragm remains elevated. The left lung remains clear. The cardiac and mediastinal silhouette appears stable. There is partial silhouetting of the right heart border. IMPRESSION: No acute pipe changer the previous 24 hours. Persistent, stable pleuroparenchymal disease right hemithorax. Normal [facility] CNDSon 01-03-2018 CNDS HNO ID: [id number] thor: Maximo Baumanervice: [facility] MedicineAuthor Type: PhysicianType: Discharge SummariesFiled: 01/03/2018 6:30 PMNote Text: DISCHARGE SUMMARYPATIENT NAME: Soraya Bowser ADMISSION DATE: 12/23/2017MRN: [id number] DISCHARGE DATE: 01/03/2018ATTENDING PHYSICIAN: Maximo Espinal Code Status: Not on fileHighest Readmission Risk Score: 24 The 30 day readmissions risk score is derived from an internallyvalidated risk model which evaluates patient level characteristics,utilization history, medication orders and lab results up until the day ofdischarge. Patients with a score of 40 or above are considered highestrisk for readmission. Specific patient level drivers will be listed at thebottom of the summary.REASON FOR HOSPITALIZATION: Lung abscessDIAGNOSIS: Principal Problem: Lung abscess (HCC)Active Problems: Pulmonary embolism, bilateral (HCC) SHARI (acute kidney injury) (HCC) Anxiety GERD (gastroesophageal reflux disease) Alcohol abuse Obesity, Class I, BMI 30-34.9 Bipolar 1 disorder (HCC) Elevated blood pressure reading Unintentional weight loss Mediastinal lymphadenopathy Thrombocytosis (HCC) Leukocytosis Macrocytic anemia Severe protein-calorie malnutrition (HCC)Resolved Problems: Diarrhea Sinus tachycardia Ruled OutOPERATIONS DURING HOSPITALIZATION: NonePROCEDURES DURING HOSPITALIZATION: No procedures performedHOSPITAL COURSE:Mr. Fulton is a pleasant 52 year old male with a past medical history ofbipolar disorder and recent treatment for bilateral blood clots in hislungs with blood thinners (heparin drip) at [facility]. Duringthat stay, imagining of the chest revealed right lung abscess that wasdrained and treated with antibiotics outpatient (Augmentin). The patientpresented to [facility] ED on 12/24 due to worsening chest pain,shortness or breath, and cough. In the ED, a CT of the chest was preformedand revealed that the right lung still had an abscess fluid collection.The patient was initially started on the antibiotic course of Vancomycinand Zosyn while the results of what kind of bacteria was present in thelungs was being assessed at [facility]. The patient was admitted tothe house medicine team at [facility] for treatment of the infection.Thoracic surgery was consulted and preformed drainage of the abscess on12/25. Patient was transitioned to the antibiotic Zosyn alone after abscesscultures from [facility] indicated that the infection was of anaerobicbacteria origin. Patient reported numerous instances of coughing andaspiration at night and these culture results further confirmed that theabscess was likely secondary to aspiration of sputum while sleeping. As aresult, Mr. Fulton's Trazadone and Seroquel (bipolar disordermedications) were reduced and the patient reported no significant sideeffects from the change. On the patient's 5th day of his hospital course,he was noticed to have decreasing kidney function, as indicated by anelevated Creatine level from the patient's baseline. Nephrology wasconsulted and determine that this decrease in kidney function was likelysecondary to contrast from the patient's CT imaging of his chest. Thepatient was given fluids and the Creatinine level was monitored daily. Thepatient was also placed on a heparin drip blood thinner for blood clotprevention in case Nephrology was interested in preforming a kidneybiopsy. Nephrology decided not to do a kidney biopsy and therefore thepatient was transitioned to Eliquis on 01/02, which he has tolerated welland will be discharged home with. The patient also had a [address] levelchecked to ensure that the patient did not suffer significant side effectsfrom a potential lithium toxicity secondary to poor clearance of the drugthrough the kidneys. The [address] level was mildly elevated and thereforethe medication was held until the [address] level was within the normalrange. The lithium was then restarted at a lower dose (600mg) than thepatient's prescribed home dose (600mg two times a day). The patient willfollow up with his outpatient Psychiatrist, Ino Gupta NP, on 01/16/18to review the dose adjustments made to Trazadone, Seroquel, and [address].The patient also noted increased urination throughout the duration of hisstay within the hospital. Nephrology recommended further workup outpatientto determine the cause of the increased urination if it does not go away.The patient was transitioned to Ertapenem (Invanz) IV antibiotics by theinfectious disease doctors following the patient for his lung abscess andwas instructed to continue this antibiotic through 01/25/18. The patientwill be scheduled through [facility] to have a follow up appointment,within the next week, with his primary care physician, Dr. Chavez, [facility]. The patient will also follow up with Nephrologyoutpatient at the Mr. Fulton is a pleasant 52 year old male with a pastmedical history of bipolar disorder and recent treatment for bilateralblood clots in his lungs with blood thinners (heparin drip) at [facility]. During that stay, imagining of the chest revealed rightlung abscess that was drained and treated with antibiotics outpatient(Augmentin). The patient presented to [facility] ED on 12/24 due toworsening chest pain, shortness or breath, and cough. In the ED, a CT ofthe chest was preformed and revealed that the right lung still had anabscess fluid collection. The patient was initially started on theantibiotic course of Vancomycin and Zosyn while the results of what kindof bacteria was present in the lungs was being assessed at [facility].The patient was admitted to the house medicine team at [facility] fortreatment of the infection. Thoracic surgery was consulted and preformeddrainage of the abscess on 12/25. Patient was transitioned to the antibioticZosyn alone after abscess cultures from [facility] indicated that theinfection was of anaerobic bacteria origin. Patient reported numerousinstances of coughing and aspiration at night and these culture resultsfurther confirmed that the abscess was likely secondary to aspiration ofsputum while sleeping. As a result, Mr. Fulton's Trazadone and Seroquel(bipolar disorder medications) were reduced and the patient reported nosignificant side effects from the change. On the patient's 5th day of hishospital course, he was noticed to have decreasing kidney function, asindicated by an elevated Creatine level from the patient's baseline.Nephrology was consulted and determine that this decrease in kidneyfunction was likely secondary to contrast from the patient's CT imaging ofhis chest. The patient was given fluids and the Creatinine level wasmonitored daily. The patient was also placed on a heparin drip bloodthinner for blood clot prevention in case Nephrology was interested inpreforming a kidney biopsy. Nephrology decided not to do a kidney biopsyand therefore the patient was transitioned to Eliquis on 01/02, which hehas tolerated well and will be discharged home with. The patient also hada [address] level checked to ensure that the patient did not suffersignificant side effects from a potential lithium toxicity secondary topoor clearance of the drug through the kidneys. The [address] level wasmildly elevated and therefore the medication was held until the Lithiumlevel was within the normal range. The lithium was then restarted at alower dose (600mg) than the patient's prescribed home dose (600mg twotimes a day). The patient will follow up with his outpatient Psychiatrist,Ino Gupta NP, on 01/16/18 to review the dose adjustments made toTrazadone, Seroquel, and [address]. The patient also noted increasedurination throughout the duration of his stay within the hospital.Nephrology recommended further workup outpatient to determine the cause ofthe increased urination if it does not go away. The patient wastransitioned to Ertapenem (Invanz) IV antibiotics by the infectiousdisease doctors following the patient for his lung abscess and wasinstructed to continue this antibiotic through 01/25/18. The patient will bescheduled through [facility] to have a follow up appointment, within thenext week, with his primary care physician, Dr. Chavez, at [facility]. The patient will also follow [facility] with [facility] (date and time still pending). Patient should havea Basic Metabolic Panel lab draw on , 01/05, to further confirmthat the Creatine level is continuing to decrease back to the patient'sbaseline Creatine level of 0.8 and ensure that the kidneys are workingappropriately. These results can be followed by his primary carephysician.Transitions of Care Critical Issues:LAB MONITORING NEEDED: BMPNext LABS AND PROCEDURES PENDING AT DISCHARGE: No pending results.CONSULTING TEAMS DURING HOSPITALIZATION: Hospital Medicine: Dr. EspinalInfectious Disease: Dr. CantrellNephrology: Dr. Palmaurgery : Thoracic surgeryPATIENT CONDITION AT DISCHARGE: FairDISCHARGE DISPOSITION: Home/Self CareDischarge Physical Exam:VITAL SIGNS: BP 136/74 Pulse 70 Temp 36.8 ?C (98.2 ?F) (Oral) Resp 16 Ht 177.8 cm (5' 10 ) Wt 98.4 kg (217 lb) SpO2 100% BMI31.14 kg/m?GENERAL: Alert, no distress, cooperativeLUNGS: Lungs clear to auscultation, Good diaphragmatic excursionCARDIAC: Normal S1 and S2; no rubs, murmurs, or gallopsABDOMEN: Abdomen soft, non-tender, BS normal, No masses or organomegalyEXTREMITIES: Extremities normal, no deformities, edema, clubbing or skindiscoloration. Good capillary refill., No ulcersNEURO: Gait normal. Reflexes normal and symmetric. Sensation grosslyintact, Cranial nerves II-XII intactPULSES: 2+ radial, 2+ carotidDIET: Resume pre-hospital dietRegularACTIVITY: Resume pre-hospital activityWOUND/SURGICAL SITE CARE: NoneALLERGIESNo Known AllergiesDISCHARGE MEDICATION:Current Discharge Medication ListSTART taking these medicationsertapenem (INVanz) 1 gInject 1 g intravenously once daily.Qty: 22 g Refills: 0CONTINUE these medications which have CHANGEDQUEtiapine (SEROquel) 100 mgTake 100 mg by mouth daily at bedtime.Qty: 30 tablet Refills: 0lithium carbonate 600 mgTake 600 mg by mouth daily at bedtime.Qty: 30 capsule Refills: 0traZODone (DESYREL) 150 mgTake 150 mg by mouth daily at bedtime.Qty: 30 tablet Refills: 0CONTINUE these medications which have NOT CHANGEDapixaban (ELIQUIS) 5 mgTake 5 mg by mouth twice daily.benztropine (COGENTIN) 0.5 mgTake 0.5 mg by mouth twice daily.venlafaxine ER (EFFEXOR XR) 150 mgTake 150 mg by mouth once daily.propranolol (INDERAL) 20 mgTake 20 mg by mouth twice daily.omeprazole (PriLOSEC) 20 mgTake 20 mg by mouth once daily.Qty: 90 capsule Refills: 3FUTURE APPOINTMENTS:Follow Up with PCP: Aleida Chavez MDThe patient's risk for 30-day readmission is determined using thefollowing contributing factors:Pt variables contributing to increased readmission risk: 18 Active Medication Orders 15 Most Recent BUN Result 8.5 First Resulted Calcium During Admission 1 Insurance - Medicaid 1 Discharge Disposition - Home 1 History of Anemia 1 Active AnticoagulantTIME OF CARE: Discharge Management: I personally spent greater than 30minutes involved in the discharge management of this patient.SIGNATURE: Malik Morales MD PAGER/CONTACT #: [phone]: January 03, 2018TIME: 3:32 PM Normal [facility] CONSULT PROGon 01-03-2018 Protein mass conc HNO ID: [id number] thor: Tenzin Fullerervice: Infectious DiseaseAuthor Type: PhysicianType: Consult Progress NoteFiled: 01/03/2018 5:15 PMNote Text:INFECTIOUS DISEASE PROGRESS NOTEPatient Name: Soraya Bowser HISTORY:Leukocytosis slightly elevated today 13.82 (12.46).CXR unchanged. Denies f/c/n/v/d.Dyspnea improving. On room air. He is tolerating invanzASSESSMENT:1. Sepsis 2/2 # 22. Right Upper Lobe Loculated Lung Abscess -- s/p IR drain 12/07 at OSH + GBS/ GCS/ Prevotella Oralis -- s/p repeat IR pigtail catheter/CT placed at [facility] 12/25/17 - cx: mixedanaerobic lavelle -- likely aspiration related v/s complicated community acquired pna3. Leukocytosis due to #2, improving4. Fever/ Chills, resolved5. Dyspnea/ Chest Pain due to #26. Ac on Chronic Anemia7. SHARI 2/2 ATN - Urine eos neg. Improving nephrology followingPLAN:invanz iv till 01/25/18CoPAT and scripts on chartNeeds repeat CT chest prior to stopping abxF/u with ID near end of abx completionCard given to patient.30 min cocMEDICATIONS: reviewed.Current hospital medications:apixaban 5 mg tab(s) (ELIQUIS) 5 mg ORAL BIDertapenem 1 g in NaCl 0.9% 100 mL MB+ (INVanz) 1 g INTRAVENOUS q 24 Hlithium carbonate 600 mg cap(s) (ESKALITH) 600 mg ORAL AT BEDTIMEtraZODone 150 mg tab(s) (DESYREL) 150 mg ORAL AT BEDTIMEoxyCODONE-acetaminophen 5-325 mg 1-2 tablet (PERCOCET) 1-2 tablet ORAL q 6H PRNQUEtiapine 100 mg tab(s) (SEROquel) 100 mg ORAL AT BEDTIME0.9% NaCl 10 mL 10 mL INTRAVENOUS q 12 H0.9% NaCl 20 mL 20 mL INTRAVENOUS PRNacetaminophen 650 mg tab(s) (TYLENOL) 650 mg ORAL q 6 H PRNprenatal vitamin with folic acid 1 mg 1 tablet 1 tablet ORAL DAILYthiamine 100 mg tab(s) (VITAMIN B1) 100 mg ORAL TIDiv contrast (radiology procedure) INTRAVENOUS DIRECTED PRNcodeine-guaiFENesin 5 mL oral liquid (ROBITUSSIN AC) 5 mL ORAL q 6 H PRNbenztropine 0.5 mg tab(s) (COGENTIN) 0.5 mg ORAL BIDpropranolol 20 mg tab(s) (INDERAL) 20 mg ORAL BIDvenlafaxine ER 150 mg cap(s) (EFFEXOR XR) 150 mg ORAL DAILY0.9% NaCl 3-5 mL 3-5 mL INTRAVENOUS q [address] 40 mg tab(s) (PROTONIX) 40 mg ORAL DAILY (6 AM)PHYSICAL EXAM:Vital signs: BP 136/74 Pulse 70 Temp 36.8 ?C (98.2 ?F) (Oral) Resp 16 Ht 177.8 cm (5' 10 ) Wt 98.4 kg (217 lb) SpO2 100% BMI31.14 kg/m?General: alert, oriented, NADLungs: fairly CTA, diminished BS. On room airHeart: regular rate and rhythmAbdomen: soft, non tender, non distended, BS+Extremities: no swollen jointsSkin: no rashIV sites - L PICC site (12/27) site cleanLab data: reviewedRecent Labs 537 420 345 500WBC 13.82* -- 12.46* 13.44*HB 9.9* -- 9.7* 10.4*PLT 342 -- 349 398*NA 145 142 -- 144K 3.3* 3.9 -- 3.6CO2 26 27 -- 25BUN 15 16 -- 18CREAT 2.31* 2.51* -- 2.48*Microbiology data:12/25 Abscess cx: mixed anaerobic floraMRSA nares negImaging data: reviewedCT chest: 12/29Marked improvement in the appearance of the right lung abscess afterpercutaneousdrainage.Impr oving lower lung zone infiltrates.Right-sided volume loss secondary to atelectasis.Continued mediastinal lymphadenopathy which is probably reactive innature.Iris Foreman CNPBuffalo Infectious Disease SpecialistsPager: [phone] 2017 12:36 PM++++++++++++++++++++++++++++ ++++++++++++++++++++++++++++++ +++++++++Above reflects my direct input except for changes as amended. Revieweddata independently.Tenzin Cantrell MD01/03/20185:15 PM Normal [facility] Hemogramon 01-03-2018 Erythrocyte distribution width Auto Ratio (RBC) 14.3 % Normal 11.6-14.4 [facility] Comment on above: Performed By: #### H A1C ####[place] [address] Hematocrit Auto Volume Fraction (Bld) 30.1 % Low 40.1-51.0 [facility] Comment on above: Performed By: #### H A1C ####[place] [address] Hemoglobin mass conc (Bld) 9.9 g/dL Low 13.7-17.5 [facility] Comment on above: Performed By: #### H A1C ####[address], [place] [address] MCH Auto Entitic mass (RBC) 33.9 pg High 25.7-32.2 [facility] Comment on above: Performed By: #### H A1C ####[place] [address] MCHC Auto mass conc (RBC) 32.9 % Normal 32.3-36.5 [facility] Comment on above: Performed By: #### H A1C ####[place] [address] MCV Auto Entitic volume (RBC) 103.1 fL High 83.2-95.6 [facility] Comment on above: Performed By: #### H A1C ####[place] [address] Platelet mean volume Auto Entitic volume (Bld) 9.6 fL Normal 8.7-12.0 [facility] Comment on above: Performed By: #### H A1C ####[place] [address] Platelets Auto #/vol (Bld) 342 thou/cmm Normal 141-365 [facility] Comment on above: Performed By: #### H A1C ####[place] [address] RBC Auto #/vol (Bld) 2.92 mil/cmm Low 4.63-6.08 [facility] Comment on above: Performed By: #### H A1C ####[place] [address] RDW SD 53.8 fl High 36.1-45.8 [facility] Comment on above: Performed By: #### H A1C ####[place] [address] WBC Auto #/vol (Bld) 13.82 thou/cmm High 4.23-9.07 [facility] Comment on above: Performed By: #### H A1C ####[place] [address] MDRD GFRon 01-03-2018 GFR/1.73 sq M predicted among non-blacks MDRD vol rate/area (S/P/Bld) 29.78 mL/min/{1.73_m2} Normal >60mL/min/1. 73m2 [facility] Comment on above: Result Comment: If t he patient is , multiply the result by 1.210. Performed By: #### G FR ####[place] [address] NUTRITIONon 01-03-2018 NUTRITION HNO ID: [id number] thor: Félix (Shiv) Ramandeepervice: Nutrition TherapyAuthor Type: Registered DietitianType: NutritionFiled: 01/03/2018 2:34 PMNote Text:NUTRITION THERAPY PROGRESS NOTESERVICE DATE: 01/03/2018SERVICE TIME: 10:40RECOMMENDED DIAGNOSIS: SEVERE PROTEIN-CALORIE MALNUTRITION per RegisteredDietitian on 12/24/17In the context of Social/Environmental Circumstance based on:Unintentional Weight Loss: >10% in 6 monthsInsufficient Energy Intake: less than or equal to 50% for greater than orequal to 1 monthNUTRITION CARE PLANProblem, Etiology and Signs/Symptoms:Suboptimal protein/energy intake related to feelings of depression?asevidenced by patient interview.Intervention:1. Encourage PO intake2. Continue Ensure Clear apple BID to provide 240 kcal and 8 gm proteinper servingMonitor and Evaluation:Goal: Meet >75% of estimated needsMonitor fluid/electrolyte balanceMonitor labs, I/Os, vital signs, weightDischarge Nutrition Recommendations:Diet: RegularSupplements: Supplement of choice if po <50% estimated needs. Reason for Visit: Follow-up for severe malnutritionPer HPI: A 52 year old male was admitted from [facility]. He has cough,SOB and chest pain that started 2 weeks ago. He was treated for bilateralPE and had 26a12i9 cm right upper lobe abscess drained. He was DC'd onaugmentin and eliquis. Today patient presents with CP pleuritic in natureassociated with SOB, productive cough, fever, chills, and sweat. CXR andchest CT done at [facility] showed a 9x6, 4x9 loculated air fluid right upperlobe abscess.?Patient reports loss of appetite, fatigue and 14 poundsunintentional weight loss over a period of 1 month.12/30: PICC line placed on 12/27. Nephrology is following for SHARI. Per Caremanagement, plan for discharge home once medically stable. Per residentnote on 12/28 patient has been having mild right side chest pain. Perthoracic surgery on 12/29, patient had tpa administered through chest tube.Interval History: Plan is for patient to return home with HC whenmedically stable per care management. Nephrology continues to follow forAKI. Chest tube removed on 01/01 per thoracic surgery note.ACTIVE PROBLEM LISTPain in Joint, Shoulder RegionPain in Joint, Upper ArmImpingement Syndrome of Right ShoulderAnxietyCounseling and Coordination of CareCellulitis and Abscess of Unspecified SiteGerd (Gastroesophageal Reflux Disease)Alcohol AbuseChange in Bowel HabitHistory of Esophagogastroduodenoscopy (Egd)Obesity, Class I, Bmi 30-34.9Lung Abscess (Hcc)Bipolar 1 Disorder (Hcc)Elevated Blood Pressure ReadingUnintentional Weight LossMediastinal LymphadenopathyThrombocytosis (Hcc)LeukocytosisMacrocytic AnemiaPulmonary Embolism, Bilateral (Hcc)Severe Protein-Calorie Malnutrition (Hcc)Shari (Acute Kidney Injury) (Hcc)PAST MEDICAL HISTORYDiagnosis Date- Bipolar 1 disorder (HCC)- GERD (gastroesophageal reflux disease)- Left elbow pain- Shoulder pain, rightPAST SURGICAL HISTORYProcedure Laterality Date- PAST SURGICAL HISTORY OF Right 1998 right wrist debridement (s/p infection of pins from repair)- PICC LINE INSERTION (PICC TEAM) (AK) 12/27/2017Present Diet Order: RegularNutritional Intake: >75% estimated energy needs over the past 3-4 day(s).Patient reported that his appetite is good. Patient stated that he ateeggs, sausage, yogurt, and chocolate milk for breakfast this morning.Patient reported that he sometimes drinks Ensure Clear supplements butsince he has been eating better hasn't been drinking them as much as hehad been before. Per flowsheet, patient consumed 50% of dinner on 01/01,100% of breakfast and lunch and 50% of dinner on 12/30.Admission Weight: 100.3 kg (221 lb 1.9 oz)Current Weight: 98.4 kg (217 lb)Body mass index is 31.14 kg/m?. class 1 obesityCurrent Facility-Administered Medications:apixaban 5 mg tab(s) (ELIQUIS) 5 mg ORAL BIDertapenem 1 g in NaCl 0.9% 100 mL MB+ (INVanz) 1 g INTRAVENOUS q 24 Hlithium carbonate 600 mg cap(s) (ESKALITH) 600 mg ORAL AT BEDTIMEheparin RATE CHANGE bolus 1,000-10,000 Units for subtherapeutic apttresults 1,000-10,000 Units INTRAVENOUS PRNtraZODone 150 mg tab(s) (DESYREL) 150 mg ORAL AT BEDTIMEoxyCODONE-acetaminophen 5-325 mg 1-2 tablet (PERCOCET) 1-2 tablet ORAL q 6H PRNQUEtiapine 100 mg tab(s) (SEROquel) 100 mg ORAL AT BEDTIME0.9% NaCl 10 mL 10 mL INTRAVENOUS q 12 H0.9% NaCl 20 mL 20 mL INTRAVENOUS PRNacetaminophen 650 mg tab(s) (TYLENOL) 650 mg ORAL q 6 H PRNprenatal vitamin with folic acid 1 mg 1 tablet 1 tablet ORAL DAILYthiamine 100 mg tab(s) (VITAMIN B1) 100 mg ORAL TIDiv contrast (radiology procedure) INTRAVENOUS DIRECTED PRNcodeine-guaiFENesin 5 mL oral liquid (ROBITUSSIN AC) 5 mL ORAL q 6 H PRNbenztropine 0.5 mg tab(s) (COGENTIN) 0.5 mg ORAL BIDpropranolol 20 mg tab(s) (INDERAL) 20 mg ORAL BIDvenlafaxine ER 150 mg cap(s) (EFFEXOR XR) 150 mg ORAL DAILY0.9% NaCl 3-5 mL 3-5 mL INTRAVENOUS q [address] 40 mg tab(s) (PROTONIX) 40 mg ORAL DAILY (6 AM)Intake/Output 12/30/17 0700 - 12/31/17 0659 12/31/17 0700 - 01/01/18 0659 [id number] - 01/02/18 0659 01/02/18 07 - 01/03/18 0659 Intake (ml) 3790 -- 600 1400 Output (ml) 4063 3430 3850 2525 Net (ml) -273 -3430 -3250 -1125MNT Billing Type: Re-assess/15 min 3 unitsSIGNATURE: F[address] PATIENT NAME: Soraya BowserDATE: January 03, 2018 : 9:24 AM PAGER: [phone] [facility] PLAN OF CAREon 01-03-2018 PLAN OF CARE HNO ID: [id number] thor: Corina Dupree (Exercise Instructor)Service: PharmacyAuthor Type: PharmacistType: Plan of CareFiled: 01/03/2018 3:07 PMNote Text:DISCHARGE MEDICATION REVIEW BY PHARMACYPatient Name: Soraya Bowser Account #: Data UnavailableMRN: [id number] Admission Date: 12/23/2017Date of Contact: January 03, 2018 Time of Contact: 3:01 PMMedication list was reviewed by a Pharmacist for drug interactions or drugrelated problems:YesBelow is a summary of pharmacist recommendations discussed with LIP:No Recommendations at this time from Discharge Medication List.Due to SHARI, patient [address] dose reduced from 1200 mg QHS to 600 mg QHS.Quetiapine dose reduced from 200 mg daily to 100 mg daily and trazodonedose reduced from 300 mg QHS to 150 mg QHS.Patient to complete course of ertapenem once daily through 01/25/18.Follow-up BMP scheduled for later this week. Patient has follow-upscheduled with outpatient psychiatrist on 01/16/18.CORINA DUPREE, PHARMACY RESIDENTAumemorial medical centert 2017 3:01 PMPager: [phone] 3:01 PMMedication ListSTART taking these medicationsertapenem 1 gram injectionCommonly known as: INVanzInject 1 g intravenously once daily for 22 days.CHANGE how you take these medicationslithium carbonate 600 mg capsuleTake 1 capsule by mouth daily at bedtime.What changed:? how much to take? when to take thisQUEtiapine 100 mg tabletCommonly known as: SEROquelTake 1 tablet by mouth daily at bedtime.What changed:? how much to take? when to take thistraZODone 150 mg tabletCommonly known as: DESYRELTake 1 tablet by mouth daily at bedtime.What changed:? medication strength? how much to takeCONTINUE taking these medicationsapixaban 5 mg tab(s)Commonly known as: ELIQUISbenztropine 0.5 mg tabletCommonly known as: COGENTINomeprazole 20 mg capsuleCommonly known as: PriLOSECTake 1 capsule by mouth once daily.propranolol 20 mg tabletCommonly known as: INDERALvenlafaxine ER 150 mg 24 hr capsuleCommonly known as: EFFEXOR XRWhere to Get Your MedicationsInformation about where to get these medications is not yet availableAsk your nurse or doctor about these medications? ertapenem 1 gram injection? lithium carbonate 600 mg capsule? QUEtiapine 100 mg tablet? traZODone 150 mg tablet Normal [facility] PROGRESSon 01-03-2018 Protein mass conc HNO ID: [id number] thor: Tristan Berryervice: NephrologyAuthor Type: PhysicianType: Progress NotesFiled: 01/03/2018 2:42 PMNote Text:Nephrology Progress NoteSubjectivePatient without issue or complaint. Still with high UO. Scr is down to2.31 today compared to 2.51 yesterday. No chest pain, SOB, edema. 01/03/1805BP: 142/78 122/66 136/74Pulse: 75 67 70Resp: 18 18 16Temp: 36.7 ?C (98.1 ?F) 36.7 ?C (98.1 ?F) 36.8 ?C (98.2 ?F)TempSrc: Oral Oral OralSpO2: 97% 97% 100%Weight: 98.4 kg (217 lb)Height:No pallor No icterusNo JVDHeart - S1 Y1Mfxjl - clearAbdomen - soft, non distended, no organomegalyLE - no edema, No cyanosisNo rashAAO x 3CMP:Glucose 82 8/14/2018BUN 15 01/03/2018Creatinine 2.31 01/03/2018Sodium 145 01/03/2018Potassium 3.3 01/03/2018Chloride 112 01/03/2018CO2 26 01/03/2018Protein, Total 6.9 12/24/2017Albumin 1.7 12/28/2017Calcium 8.7 01/03/2018Alkaline Phosphatase 170 12/24/2017Bilirubin, Total 0.4 12/24/2017AST 29 12/24/2017ALT 46 12/24/2017Hemoglobin (g/dL)Date Value01/25/2017 15.3 HGB (g/dL)Date Value01/03/2018 9.9 Hematocrit (%)Date Value01/03/2018 30.1 WBC (thou/cmm)Date Value01/03/2018 13.82 Platelet Count (thou/cmm)Date Value01/03/2018 342 Assessment/ Plan1. Acute kidney injury.?Normal baseline renal function. SCr was 0.82 mg/dLon 12/25/17.Most likely cause of of SHARI is ATN now down from 3--->2.48 (from 01/01)Renal function is continuing to slowly improve.?There is no obstruction seen on recent CT scan.Agree with continuing?IVF. Doing well with oral intake.No need for LUSTER REPAIRER, patient is not uremic, fluid overloaded, or hyperkalemic.Avoid further IV contrast. Avoid NSAID.Will follow Scr trend, including checking renal function today.Scr continues to improve, down to 2.31Okay to D/C from renal standpoint, f/u with nephrology as outpatient.??2- Polyuria most probably from ATN recovery/Li induce ?NDI- Electrolytesokay?3. Lung abscess. s/p CT drainage. Antibiotic as per ID, currently onertapenem.?4. Bipolar disorder.[address] is back on at bedtime.Bruce Klein APRNPatient seen and examined independentlyClinically looks goodCreatinine betterK repletedDc today. BMP later this week and follow up in office next weekHe has an appt with psychiatry next week alsoLi dose adjustedHas been on Li for about a year nowHe will discuss with psychiatry about other optionsD.w Dr Kylie Nguyen [facility] Protein mass conc HNO ID: [id number] thor: Maximo Bennettice: [facility] MedicineAuthor Type: PhysicianType: Progress NotesFiled: 01/03/2018 6:30 PMNote Text:SERVICE DATE:?01/03/2018???SERVICE TIME:?9:15am ??HOSPITAL MEDICINE PROGRESS NOTE?SUBJECTIVEInterval HPI: (Unchanged). Mr. Bowser is a 52 yo male with a PMHx ofBipolar disorder and recent diagnosis of bilateral PE that was originallytreated at [facility] on 12/10 with heparin drip. The patient hadworsening SOB while at [facility] and therefore imagining revealed Marie abscess that was drained and the patient was discharged home onantibiotics and apixaban. Cultures at [facility] grew anaerobes, suggesting anaspiration pneumonia. The patient represented to the hospital on 12/24 withworsening SOB and hemoptysis. Imaging revealed that the RUL abscess wasstill presented and ecreased in size from [id number] to [id number]. In the ED,the WBC was 24 and the patient was admitted for treatment of lung abscess.?Thoracic surgery was consulted and placed a drain on 12/24 and ID startedthe patient on vanc and zosyn while waiting for the abscess cultureresults. [facility] cultures were collected and the patient was transitioned tozosyn. During his stay, his Cr bumped from 0.8 to 3.5 on 12/28. Nephrologywas consulted and determined that this was bump in Cr was secondary tocontrast induced kidney injury. Patient was administered fluids, zosyndose was decreased, and Li level was collected and lithium was doseadjusted accordingly. Patient was put on heparin drip in case nephrologyrequired a renal biopsy. Patient was transitioned to unasyn for antibioticcoverage as of 01/01.?Today: Patient is sitting up in chair on presentation this AM. Reportsthat he just returned from a CXR and he is feeling well. He denies any SOBand Right upper chest pain. He reports that his diarrhea has improved andhe had one formed bowel movement last night. He states that he had noproblems with the transition from Heparin to Eliquis over night. All otherROS otherwise negative.?OBJECTIVEBP 122/66 Pulse 67 Temp (Src) 98.1 (Oral) Resp 18 Ht 5' 10 (1.78m) Wt 224 lb 3.3 oz (101.7kg) SpO2 97% on room air BMI 32.17kg/(m2).Physical Exam Performed:GENERAL: ?well appearing, alert and in no acute distressHEART: ? regular rate and rhythm, no murmers, gallops or rubs, normal S1,S2.LUNGS: ?lungs clear upon auscultation bilaterally in all six lung dai.No wheezing, rhonchi, or rales.ABDOMEN: Soft, nontender, bowel sounds normal, no palpable organomegaly,no bruits.EXTREMITY: No lower extremity edema. Radial and pedal pulses 2+bilaterally.?Lines, Drains, and Airways:- Line: Central line single lumen placed on 12/27/17 PICC in Left arm (Inplace for 6 days duration)- Drain: Right pigtail medial chest drain - Removed 01/01/18.Recent Labs 7 420 01/01/1805WBC 13.82* -- 12.46* 13.44*HB 9.9* -- 9.7* 10.4*HCT 30.1* -- 29.8* 31.9*PLT 342 -- 349 398*NA 145 142 -- 144K 3.3* 3.9 -- 3.6CHLOR 112* 109* -- 111*CO2 26 27 -- 25CREAT 2.31* 2.51* -- 2.48*BUN 15 16 -- 18GLUC 82 100* -- 78CA 8.7 8.5 -- 8.8?Chest X-ray (01/03) IMPRESSION:No acute changes over past 24 hours. Persistent, stable pleuroparenchymaldisease. Right hemithorax.?ASSESSMENT AND?PLAN1. Bilateral Pulmonary Embolism- Patient presented to ED at [facility] on December 10 for severe SOB andhemoptysis. Patient diagnosed to have bilateral pulmonary emboli and wastreated with a heparin drip which was then transitioned to apixaban.Patient imagining also reported RUL abscess that was treated with drainageand outpatient with augmentin.- Patient initially placed on heparin drip in case Nephrology needed toperform renal biopsy.- Heparin drip discontinued on 01/02.- Patient transitioned to Eliquis at 9pm on 01/02.2. Right Upper Lobe Lung Abscess- Patient presented to ED at [facility] on December 10 for severe SOB andhemoptysis. Patient diagnosed to have bilateral pulmonary emboli and wastreated with a heparin drip. Patient imagining also reported RUL abscessthat was treated with drainage and outpatient antibiotics.- Patient presented to [facility] on 12/24 due to worsening chest pain and SOB.CT chest shows change from [id number] to 9X6.4X9.4cm loculated air fluidthin walled abscess in the right upper lobe, associated with mediastinallymphadenopathy, which is consistent with anaerobic abscess henceanaerobic infection.- Cultures obtained from [facility] revealed:+ GBS/ GCS/ Prevotella Oralis- RUL abscess is thought to be secondary to aspiration pneumon as a resultof the cultures growing anaerobes.- MRSA nares is negative.- Patient initially treated with vancomycin and zosyn and was transitionedto zosyn alone after culture results were obtained from [facility].- IR drained the abscess and placed on pleuravac drain that was removed on01/01.- WBC down trending from 13.4 to 12.46 (01/02)- CXR on 01/02 showed improvement in RUL.- ID stopped zosyn on 01/01 and recommended Unasyn through PICC line.- Unasyn discontinued on 01/03.- Patient tranisitioned to IV Invanz on 01/03.- Continue antibiotics until 01/25- Repeat CXR performed on 01/03 showed unchanged from previous performed on01/02.3. Acute Kidney Injury- Cr 2.48 (0.8 his baseline) as on 01/01. Labs for 01/02 still pending- Patient had rise in Cr on 12/28 from baseline 0.8 to 3.5.- Nephrology consulted- FeNa <1 consistent with pre-renal, contrast induced nephrotoxicity.- Renal US showed no obstruction.- Urine Protein/Cr rate = 0.3.- CK within normal limits - ruled out SHARI secondary to rhabdomyolisis.- Urine eosinophils negative.- SHARI stage 3- Zosyn, lithium dose adjusted according to Cr clearance- Patient receiving IVF 1/2 NS 1:1 replacement- Patient should have outpatient BMP 3-4 days after discharge to continueto monitor Cr level.- Patient will follow with Nephrology at [place] afterdischarge.4. Hypokalemia- Patient's baseline K 3.6.- Today, 01/03, patient's K 3.3.- Ordered oral KCl 40mEq to replete.- Admission EKG showed no evidence of QT prolongation.- Will reassess BNP before discharge.- Patient will have BNP 3-4 days after discharge and K can be followed byoutpatient PCP.5. Leukocytosis- Patient presented with an elevated WBC of 24.- WBC trending down to 12 at present (01/02).- Continue to monitor.- Patient transitioned to IV Invanz and will continue this through 01/25.6. Bipolar I Disorder- Patient has PMHx of bipolar I disorder that has been treated withSeroquel, Trazadone, Venlafaxine, and [address].- [address] level obtained after Cr increased.- [address] restarted at 600mg after lithium level returned to less than1.2.- [address] level for 01/02 pending.- Continue [address] level at 600mg.- Continue adjusted dose of Trazadone and Seroquel.- Continue home dose of Venlafazine.- Have patient follow up with outpatient Psychiatrist to followpsychiatric medications.7. DVT prophylaxis- Patient transitioned to Eliquis over night.8. GI prophylaxis- Continue home PPI BID.9. Diarrhea - Resolved- Patient reported 1-2 diarrhea like BMs a day, likely secondary toantibiotic use.- Patient now stated (01/03) that he had one formed bowel movement overnight and has not had any signs of diarrhea since.9. Diet- Nutrition on board due to significant weight loss over one month's time.- Follow nutrition's recommendations.?Suzie Blancas CB7Fknw: 01/03/18Time: 9:46amWill discuss care plan with Attending: Dr. Espinal. Normal [facility] Protein mass conc HNO ID: [id number] thor: Dragan Shemar StockerService: Thoracic SurgeryAuthor Type: PhysicianType: Progress NotesFiled: 01/03/2018 10:22 AMNote Text:Thoracic Surgery Progress NoteSERVICE DATE: 01/03/2018SubjectiveSUBJECTIVE: NAEON. Pt doing well, no complaints.Denies N/V/CP/SOBDiet: DIET REGULARObjectiveOBJECTIVE:Tuyet ls:Temp (24hrs), Av.7 ?C (98.1 ?F), Min:36.7 ?C (98.1 ?F), Max:36.8 ?C(98.2 ?F)BP 136/74 Pulse 70 Temp 36.8 ?C (98.2 ?F) (Oral) Resp 16 Ht177.8 cm (5' 10 ) Wt 98.4 kg (217 lb) SpO2 100% BMI 31.14 kg/m?O2 Therapy: Room AirIANDO:Date 01/02/18699 - 01/03/18 0659 01/03/18699 - 01/04/18 0659Shift 4084-2814 3176-4643 3189-3570 24 Hour Total 6639-2511 3698-55298395-5709 24 Hour TotalINTAKE PO 400 400 PO 400 400 IV 1000 1000 NS .45% 1000 1000 Shift Total 1000 400 1400OUTPUT Urine 500 2630 852 8315 Void (ml) 500 8873 210 3174 # of BMs Number of BMs 1 x 1 x Shift Total 500 1325 700 2525Weight (kg) 99.6 99.6 98.4 98.4 98.4 98.4 98.4 98.4MEDICATIONSCurrent Facility-Administered Medications:apixaban 5 mg tab(s) (ELIQUIS) 5 mg ORAL BIDertapenem 1 g in NaCl 0.9% 100 mL MB+ (INVanz) 1 g INTRAVENOUS q 24 Hlithium carbonate 600 mg cap(s) (ESKALITH) 600 mg ORAL AT BEDTIMEheparin RATE CHANGE bolus 1,000-10,000 Units for subtherapeutic apttresults 1,000-10,000 Units INTRAVENOUS PRNtraZODone 150 mg tab(s) (DESYREL) 150 mg ORAL AT BEDTIMEoxyCODONE-acetaminophen 5-325 mg 1-2 tablet (PERCOCET) 1-2 tablet ORAL q 6H PRNQUEtiapine 100 mg tab(s) (SEROquel) 100 mg ORAL AT BEDTIME0.9% NaCl 10 mL 10 mL INTRAVENOUS q 12 H0.9% NaCl 20 mL 20 mL INTRAVENOUS PRNacetaminophen 650 mg tab(s) (TYLENOL) 650 mg ORAL q 6 H PRNprenatal vitamin with folic acid 1 mg 1 tablet 1 tablet ORAL DAILYthiamine 100 mg tab(s) (VITAMIN B1) 100 mg ORAL TIDiv contrast (radiology procedure) INTRAVENOUS DIRECTED PRNcodeine-guaiFENesin 5 mL oral liquid (ROBITUSSIN AC) 5 mL ORAL q 6 H PRNbenztropine 0.5 mg tab(s) (COGENTIN) 0.5 mg ORAL BIDpropranolol 20 mg tab(s) (INDERAL) 20 mg ORAL BIDvenlafaxine ER 150 mg cap(s) (EFFEXOR XR) 150 mg ORAL DAILY0.9% NaCl 3-5 mL 3-5 mL INTRAVENOUS q [address] 40 mg tab(s) (PROTONIX) 40 mg ORAL DAILY (6 AM)Labs:Recent Labs 7 01/02/1803NA 145 142 --K 3.3* 3.9 --CHLOR 112* 109* --CO2 26 27 --BUN 15 16 --CREAT 2.31* 2.51* --GLUC 82 100* --ANION 10 10 --CA 8.7 8.5 --WBC 13.82* -- 12.46*HB 9.9* -- 9.7*HCT 30.1* -- 29.8*PLT 342 -- 349Exam:GENERAL: No distress, AlertNEURO: AANDOx3, no focal deficitHEENT: normocephalic, atraumaticLUNGS: Unlabored breathing O2 Therapy: Room AirCARDIAC: Regular rate and rhythm as aboveABDOMEN: Soft, non-tenderEXTREMITIES: LOPEZ, No deformities, No edemaSKIN: Skin color, texture, turgor normal, No rashes or lesionsASSESSMENT AND PLAN:Active Hospital Problems Diagnosis Date Noted- Lung abscess (HCC) 12/23/2017 Priority: A Chronic- HSARI (acute kidney injury) (HCC) 12/27/2017 Priority: B- Pulmonary embolism, bilateral ([facility]) 12/24/2017 Priority: B Chronic- Bipolar 1 disorder ([facility]) 12/24/2017- Elevated blood pressure reading 12/24/2017- Unintentional weight loss 12/24/2017- Mediastinal lymphadenopathy 12/24/2017- Thrombocytosis ([facility]) 12/24/2017- Leukocytosis 12/24/2017- Macrocytic anemia 12/24/2017- Severe protein-calorie malnutrition ([facility]) 12/24/2017- Obesity, Class I, BMI 30-34.9 12/23/2017 Chronic- Alcohol abuse 03/17/2015- GERD (gastroesophageal reflux disease) 02/06/2015- Anxiety 02[birth year]89 year old male with recurrent R lung abscess s/p IR Chest tube and tPAx2?- management per primary- Unasyn per ID- chest tube removed 01/01, f/u CXR stable- Some concern over increasing WBC, will continue to monitor.- Hep drip for hx PEs --> ok to transition back to [facility] from ThoracicstandpointWill discuss assessment and plan discussed with attending: Dr. JohnsonATURE: Wilfred Gamboa MD PATIENT NAME: Soraya BowserDATE: January 03, 2018 : 9:19 AM Pager: [phone] LahorraPatient seen and CXR reviewed. He looks and feels better.W-LactvpyuI-CC surg sign off. 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 Normal [facility] Activated PTTon 01-02-2018 aPTT Coag time (Bld) 55.5 s High 22.0-34.0 [facility] Comment on above: Performed By: #### H A1C ####[facility] [place] [address] aPTT Coag time (Bld) 60.4 s High 22.0-34.0 [facility] Comment on above: Performed By: #### U DRG2 ####[facility] [place], [place] [address] aPTT Coag time (Bld) 80.8 s Critically high 22.0-34.0 [facility] Comment on above: Performed By: #### U DRG2 ####[facility] [place], [place] [address] aPTT Coag time (Bld) 66.4 s High 22.0-34.0 [facility] Comment on above: Performed By: #### U DRG2 ####[facility] [place], [place] [address] Basic Panelon 01-02-2018 Creatinine mass conc 2.51 mg/dL High 0.67-1.17 [facility] Comment on above: Performed By: #### U DRG2 ####[address] [address] Glucose mass conc 100 mg/dL High 70-99 [facility] Comment on above: Performed By: #### U DRG2 ####[address] [address] Urea nitrogen mass conc 16 mg/dL Normal 7-18 [facility] Comment on above: Performed By: #### U DRG2 ####[address] [address] Anion gap 3 molar conc 10 mmol/L Normal 8-16 [facility] Comment on above: Performed By: #### U DRG2 ####[address] [address] Calcium mass conc 8.5 mg/dL Normal 8.5-10.1 [facility] Comment on above: Performed By: #### U DRG2 ####[address] [address] CO2 molar conc 27 mmol/L Normal 21-32 [facility] Comment on above: Performed By: #### U DRG2 ####[address] [address] Chloride molar conc 109 mmol/L High 98-107 [facility] Comment on above: Performed By: #### U DRG2 ####[address] [address] Potassium molar conc 3.9 mmol/L Normal 3.5-5.1 [facility] Comment on above: Performed By: #### U DRG2 ####[address], [place] [address] Sodium molar conc 142 mmol/L Normal 136-145 [facility] Comment on above: Performed By: #### U DRG2 ####[address] [address] CASE MANAGEMon 01-02-2018 CASE MANAGEM HNO ID: [id number] thor: Kaila (Rn) VALARIE Sarmientoervice: Care ManagementAuthor Type: Registered NurseType: Care Mgt Progress NoteFiled: 01/02/2018 2:29 PMNote Text:CARE MANAGEMENT PROGRESS NOTESERVICE DATE: 01/02/2018SERVICE TIME: 2:27 PM LOS: 10 daysNeeds Prior to Discharge: Discharge Transportation;Home Care Order;IVAntibiotics;Pharmacy Bedside DeliveryNotes reviewed. CT removed 01/01. Patient will be on Unasyn thru 01/25.Discharge plan is home with HC when medically stable.SIGNATURE: Kaila Sarmiento RN PATIENT NAME: Soraya BowserDATE: January 02, 2018 : 2:27 PM PAGER/CONTACT #: [phone] Normal [facility] CHEST 1 VIEWon 01-02-2018 CHEST 1 VIEW Performed at [facility] APPROVED BY: Luis Carlos Corrales MD EXAMINATION: CHEST RADIOGRAPH (SINGLE VIEW AP OR PA) Clinical History: Pleural effusion. The patient is a 52-year-old male being treated for lung abscess with removal of drain.M: XC1_4Comparison: Chest radiographs from the past 4 days. RESULT: Lines, tubes, and devices: Left-sided PICC line is stable and unchanged with the tip in the upper superior vena cava. The percutaneous pigtail drain in the right hemithorax has been removed. Lungs and pleura: Extensive peripheral loculated pleural disease involves the inferior and lateral right hemithorax. There is underlying parenchymal infiltrate and platelike atelectasis. The appearance is stable and unchanged from yesterday's exam. The rest of the lungs remain clear. The left costophrenic angle is sharp. Cardiomediastinal silhouette: Normal cardiomediastinal silhouette. Other: No other abnormality is identified. IMPRESSION: After removal of the pigtail drain in the right hemithorax there is no significant interval change in the appearance of the chest as compared to yesterday's exam. There is persistent loculated right hemithorax pleural disease. Normal [facility] System CONSULT PROGon 01-02-2018 Protein mass conc HNO ID: [id number] thor: Tenzin Fullerervice: Infectious DiseaseAuthor Type: PhysicianType: Consult Progress NoteFiled: 01/02/2018 4:52 PMNote Text:INFECTIOUS DISEASE PROGRESS NOTEPatient Name: Soraya Bowser HISTORY:Leukocytosis trending down 12.46(13.44)Pleurex cath discontinued yesterday. Cultures with mixed anaerobic floraBreathing improved, dyspnea improved. On room air.Denies f/c/n/v/dASSESSMENT:1. Sepsis 2/ # 22. Right Upper Lobe Loculated Lung Abscess -- s/p IR drain 12/07 at OSH + GBS/ GCS/ Prevotella Oralis -- s/p repeat IR pigtail catheter/CT placed at [facility] 12/25/17 - cx: mixedanaerobic lavelle -- likely aspiration related v/s complicated community acquired pna3. Leukocytosis due to #2, improving4. Fever/ Chills, resolved5. Dyspnea/ Chest Pain due to #26. Ac on Chronic Anemia7. SHARI ? Etiology. Urine eos neg.PLAN:D/c unasyninvanz iv till 01/25/18D/c planning soonRepeat CT chest prior to stopping abxMEDICATIONS: reviewed.Current hospital medications:apixaban 5 mg tab(s) (ELIQUIS) 5 mg ORAL BIDampicillin-sulbactam 3 g in NaCl 0.9% 100 mL MB+ (UNASYN) 3 g INTRAVENOUSq 6 Hlithium carbonate 600 mg cap(s) (ESKALITH) 600 mg ORAL AT BEDTIMENaCl 0.45% iv infusion 100 mL/hr INTRAVENOUS CONTINUOUSheparin iv infusion (STANDARD NOMOGRAM) 25,000 units in NaCl 0.45% 250 mLPREMIX 0-3,000 Units/hr INTRAVENOUS CONTINUOUSheparin RATE CHANGE bolus 1,000-10,000 Units for subtherapeutic apttresults 1,000-10,000 Units INTRAVENOUS PRNtraZODone 150 mg tab(s) (DESYREL) 150 mg ORAL AT BEDTIMEoxyCODONE-acetaminophen 5-325 mg 1-2 tablet (PERCOCET) 1-2 tablet ORAL q 6H PRNQUEtiapine 100 mg tab(s) (SEROquel) 100 mg ORAL AT BEDTIME0.9% NaCl 10 mL 10 mL INTRAVENOUS q 12 H0.9% NaCl 20 mL 20 mL INTRAVENOUS PRNacetaminophen 650 mg tab(s) (TYLENOL) 650 mg ORAL q 6 H PRNprenatal vitamin with folic acid 1 mg 1 tablet 1 tablet ORAL DAILYthiamine 100 mg tab(s) (VITAMIN B1) 100 mg ORAL TIDiv contrast (radiology procedure) INTRAVENOUS DIRECTED PRNcodeine-guaiFENesin 5 mL oral liquid (ROBITUSSIN AC) 5 mL ORAL q 6 H PRNbenztropine 0.5 mg tab(s) (COGENTIN) 0.5 mg ORAL BIDpropranolol 20 mg tab(s) (INDERAL) 20 mg ORAL BIDvenlafaxine ER 150 mg cap(s) (EFFEXOR XR) 150 mg ORAL DAILY0.9% NaCl 3-5 mL 3-5 mL INTRAVENOUS q [address] 40 mg tab(s) (PROTONIX) 40 mg ORAL DAILY (6 AM)PHYSICAL EXAM:Vital signs: BP 137/83 Pulse 67 Temp 36.7 ?C (98.1 ?F) (Oral) Resp 16 Ht 177.8 cm (5' 10 ) Wt 99.6 kg (219 lb 9.3 oz) SpO2 100% BMI 31.51 kg/m?General: alert, oriented, NADLungs: fairly CTA, diminished BS. On room airHeart: regular rate and rhythmAbdomen: soft, non tender, non distended, BS+Extremities: no swollen jointsSkin: no rashIV sites - L PICC site (12/27) site cleanLab data: reviewedRecent Labs 01/01/1805WBC 12.46* 13.44* 14.75*HB 9.7* 10.4* 10.3*PLT 349 398* 442*NA -- 144 143K -- 3.6 3.6CO2 -- 25 24BUN -- 18 16CREAT -- 2.48* 2.58*Microbiology data:12/25 Abscess cx: mixed anaerobic floraMRSA nares negImaging data: reviewedCXR 01/02:After removal of the pigtail drain in the right hemithorax there is nosignificant?interval change in the appearance of the chest as compared to yesterday'sexam.There is persistent loculated right hemithorax pleural disease.CT chest: 12/29Marked improvement in the appearance of the right lung abscess afterpercutaneousdrainage.Impr oving lower lung zone infiltrates.Right-sided volume loss secondary to atelectasis.Continued mediastinal lymphadenopathy which is probably reactive innature.Iris Foreman [facility] Infectious Disease SpecialistsPager: [phone] 2017 2:59 PM++++++++++++++++++++++++++++ ++++++++++++++++++++++++++++++ +++++++++Above reflects my direct input except for changes as amended. Revieweddata independently.Tenzin Cantrell MD01/02/20184:51 PM Normal [facility] Hemogramon 01-02-2018 Erythrocyte distribution width Auto Ratio (RBC) 14.1 % Normal 11.6-14.4 [facility] Comment on above: Performed By: #### U DRG2 ####[place] [address] Hematocrit Auto Volume Fraction (Bld) 29.8 % Low 40.1-51.0 [facility] Comment on above: Performed By: #### U DRG2 ####[facility] [place], [place] [address] Hemoglobin mass conc (Bld) 9.7 g/dL Low 13.7-17.5 [facility] Comment on above: Performed By: #### U DRG2 ####[facility] [place], [place] [address] MCH Auto Entitic mass (RBC) 33.3 pg High 25.7-32.2 [facility] Comment on above: Performed By: #### U DRG2 ####[facility] [place] [address] MCHC Auto mass conc (RBC) 32.6 % Normal 32.3-36.5 [facility] Comment on above: Performed By: #### U DRG2 ####[place] [address] MCV Auto Entitic volume (RBC) 102.4 fL High 83.2-95.6 [facility] Comment on above: Performed By: #### U DRG2 ####[place] [address] Platelet mean volume Auto Entitic volume (Bld) 9.3 fL Normal 8.7-12.0 [facility] Comment on above: Performed By: #### U DRG2 ####[place] [address] Platelets Auto #/vol (Bld) 349 thou/cmm Normal 141-365 [facility] Comment on above: Performed By: #### U DRG2 ####[place] [address] RBC Auto #/vol (Bld) 2.91 mil/cmm Low 4.63-6.08 [facility] Comment on above: Performed By: #### U DRG2 ####[place] [address] RDW SD 53.1 fl High 36.1-45.8 [facility] Comment on above: Performed By: #### U DRG2 ####[place] [address] WBC Auto #/vol (Bld) 12.46 thou/cmm High 4.23-9.07 [facility] Comment on above: Performed By: #### U DRG2 ####[place] [address] Serumon 01-02-[address] Serum 0.8 mEq/L Normal 0.6-1.2 [facility] Comment on above: Performed By: #### U DRG2 ####[place] [address] PROGRESSon 01-02-2018 Protein mass conc HNO ID: [id number] thor: Malik (Tamela Whiting: [facility] Type: ResidentType: Progress NotesFiled: 01/02/2018 5:15 PMNote Text: Attes tation signed by Maximo Espinal at 01/02/2018 6:14 PMI saw and evaluated the patient. Discussed with the resident and agree withresident's findings and plan as documented in the resident's note.1. RUL Lung Abscess 2/2 Aspiration (suspected) - will need IV abx thru 01/25.2. SHARI - suspected MITCHEL with ATN. Follow Cr closely.3. PE - heparin gtt ==> apixaban4. Possible Neph Diabetes Insipidus vs Post-ATN polyuria5. Bipolar - need to closely follow Li levels due to #2. SERVICE DATE: 01/02/2018SERVICE TIME: 5:15 PMHOSPITAL MEDICINE PROGRESS NOTENIGHT AND WEEKEND COVERAGE: From 7am - 7pm, please call [phone]: Covered by [id number] HPI: ImprovedToday the patient is doing well, his chest pain is improving, no cough orSOB, afebrile. He is been having polyuria tin the last 2 days. No blood inhis urine, no acute events overnight.OBJECTIVEBP 131/91 Pulse 64 Temp (Src) 98.2 (Oral) Resp 16 Ht 5' 10 (1.78m) Wt 219 lb 9.3 oz (99.6kg) SpO2 98% BMI 31.51 kg/(m2).Physical Exam Performed:GENERAL: GENERAL APPEARANCE NCCC: well appearing, alert and in no acutedistressHEART: HEART CCF: regular rate and rhythm, no murmer, gallop or rub,normal, S1, S2, no lifts, heaves, or thrills, PMI not displacedLUNGS: LUNGS CCF: clear to percussion and auscultation and no ralesABDOMEN: ABDOMEN: Soft, nontender, bowel sounds normal, no palpableorganomegaly, no bruits.EXTREMITY: EXTREMITY EXAM: Normal exam of the extremities. No clubbing,cyanosis, or edema.Lines, Drains, and Airways Line Central Line Single Lumen 12/27/17 1132 Peripherally Inserted (PICC) LeftArm Through Introducer 4.0 Somali 6 daysMedications: ReviewedDiagnostic tests reviewed:Most recent imagingRecent Labs 01/01/1805WBC 12.46* 13.44* 14.75* < > 20.94*RBC 2.91* 3.11* 3.04* < > 3.26*HB 9.7* 10.4* 10.3* < > 11.1*HCT 29.8* 31.9* 31.0* < > 33.0*PLT 349 398* 442* < > 394*MCV 102.4* 102.6* 102.0* < > 101.2*MCH 33.3* 33.4* 33.9* < > 34.0*MPV 9.3 9.1 8.9 < > 9.2RDW 14.1 14.0 13.9 < > 13.2METAMYELO -- -- -- -- 2.0< > = values in this interval not displayed.Recent Labs 01/01/1805GLUC 100* 78 78 < > 71 < > 90 98NA 142 144 143 < > 140 < > 138 138K 3.9 3.6 3.6 < > 3.5 < > 3.6 3.4*CHLOR 109* 111* 113* < > 109* < > 107 103CO2 27 25 24 < > 26 < > 24 26CREAT 2.51* 2.48* 2.58* < > 3.18* < > 0.82 0.88BUN 16 18 16 < > 16 < > 4* 7ANION 10 12 10 < > -- < > -- 12CA 8.5 8.8 8.3* < > 8.3* < > 8.7 8.5TPROT -- -- -- -- -- -- -- 6.9ALB -- -- -- -- 1.7* -- 1.9* 2.3*TBILI -- -- -- -- -- -- -- 0.4ALKPHOS -- -- -- -- -- -- -- 170*AST -- -- -- -- -- -- -- 29ALT -- -- -- -- -- -- -- 46< > = values in this interval not displayed.Most recent labsCARE COORDINATION:No Patient Care Coordination Note on file.ASSESSMENT AND PLANAssessment AND Plan, all Hosp ProblemsActive Hospital Problems as of 01/02/2018 Noted - Resolved Cardiovascular Pulmonary embolism, bilateral (HCC) 12/24/2017 - Present Current Assessment AND Plan- UA analysis is positive for RBCs- today he denied any pinkish urine- Will be switched back to Eliquis at 9:00 PM Elevated blood pressure reading 12/24/2017 - Present Current Assessment AND Plan - Continue to monitor BP- Suspect undiagnosed HTN Pulmonary * (Principal)Lung abscess (HCC) 12/23/2017 - Present Current Assessment AND Plan - CT chest shows change from [id number] to 9X6.4X9.4cm loculated airfluid thin walled abscess in the right upper lobe (12/29), associated withmediastinal lymphadenopathy, which is consistent with anaerobic abscesshence anaerobic infection.- s/p IR drain 12/07 at OSH + GBS/ GCS/ Prevotella Oralis- WBC is 12.4- Possibly from aspiration pneumonia- Urine toxicology is positive for opiates- IR drained the abscess, Pleurevac drain removed today.- Abscess culture is positive for moderate mixed anaerobic lavelle- Unasyn changed to ertapenem per ID through PICC line- Continue antibiotics until 01/25- MRSA nares is negative. Gastrointestinal GERD (gastroesophageal reflux disease) 02/06/2015 - Present Current Assessment AND Plan - Continue home PPI Severe protein-calorie malnutrition ([facility]) 12/24/2017 - Present Current Assessment AND Plan Nephrology SHARI (acute kidney injury) ([facility]) 12/27/2017 - Present Current Assessment AND Plan- Cr today 2.48 (0.8 his baseline)- SHARI stage 3- I/O today: -3430- Nephrology on board- Most likely Contrast- induced injury.- FeNA is <1 consistant with pre-renal, contrast-induced nephrotoxicity,GN or antibiotic Induced- Renal US didn't show any obstruction- UPCR is 0.3- urine eosinophiles are negative- CK is within normal, not duo to rhabdomyolisis- Zosyn, lithium dose adjusted according to Cr clearance- Recevied 1 L IV bolus and on 100 ml/h 0.45% NaCl, no need for urgentdialysis- Polyuria today most probably from ATN recovery/Li induce- Currently on heparin for possible renal biopsy if there is noimprovement- Change IVF to 05/24 NS 1:1 replacement Hematology Thrombocytosis ([facility]) 12/24/2017 - Present Leukocytosis 12/24/2017 - Present Current Assessment AND Plan - Likely secondary to lung abscess. Macrocytic anemia 12/24/2017 - Present Current Assessment AND Plan - Likely due to alcohol abuse. Infectious Disease Mediastinal lymphadenopathy 12/24/2017 - Present Current Assessment AND Plan - Likely reactive from infection. Psychiatry Anxiety 02/13/2014 - Present Current Assessment AND Plan - Continue with Propanolol Alcohol abuse 03/17/2015 - Present Current Assessment AND Plan - Patient denied alcohol abuse.- CIWA will be implemented. Bipolar 1 disorder ([facility]) 12/24/2017 - Present Current Assessment AND Plan - rechecked Li level is 0.8- will restart lithium 600 mg- not likely the cause of SHARI accourding to nephrology- Continue other home medications Other Obesity, Class I, BMI 30-34.9 12/23/2017 - Present Current Assessment AND Plan - Counseled- will be followed up by PCP Unintentional weight loss 12/24/2017 - Present Current Assessment AND Plan - See plan for diarrhea as above.Medication and Non-Pharmacologic VTE Prophylaxis/AnticoagulantsAnti coagulant AND Antiplatelet Medications Start Dose Route Frequency Ordered Stop 01/02/18 2100 apixaban 5 mg tab(s) (ELIQUIS) 5 mg ORAL 2 TIMES DAILY 01/02/18 1213 -- 12/28/17 1600 heparin iv infusion (STANDARD NOMOGRAM) 25,000 units inNaCl 0.45% 250 mL PREMIX (Heparin Infusion + Rate Change Bolus) 0-30mL/hr 0-3,000 Units/hr INTRAVENOUS CONTINUOUS 12/28/17 1534 01/02/18 09876112/23/17 2300 vte pharmacologic prophylaxis contraindicated (ct,oh)12/23/17 2300 activity - mobilize patient (ct,pa)VTE Prophylaxis: VTE prophylaxis appropriatePlan of care discussed with: AttendingSIGNATURE: Malik Morales MD PATIENT NAME: Soraya LaoTE: January 02, 2018 : 5:15 PM PAGER/CONTACT #: [phone] [facility] Protein mass conc HNO ID: [id number] thor: Tristan Berryervice: NephrologyAuthor Type: PhysicianType: Progress NotesFiled: 01/02/2018 5:36 PMNote Text:Nephrology Progress NoteSubjectivePatient feeling well overall. Denies chest pain, dyspnea, N/V/D, fevers,chills, dizziness, lightheadedness, edema. Does endorse polyuria, same asyesterday, and minimal cough, which is improved. [id number]: 120/69 122/86 137/83Pulse: 71 66 67Resp: 18 16 16Temp: 37.6 ?C (99.7 ?F) 36.4 ?C (97.5 ?F) 36.7 ?C (98.1 ?F)TempSrc: Oral Oral OralSpO2: 95% 99% 100%Weight: 99.6 kg (219 lb 9.3 oz)Height:No pallor No icterusNo JVDHeart - S1 N6Pfznp - clearAbdomen - soft, non distended, no organomegalyLE - no edema, No cyanosisNo rashAAO x 3CMP:Glucose 78 01/01/2018BUN 18 01/01/2018Creatinine 2.48 01/01/2018Sodium 144 01/01/2018Potassium 3.6 01/01/2018Chloride 111 01/01/2018CO2 25 01/01/2018Protein, Total 6.9 12/24/2017Albumin 1.7 12/28/2017Calcium 8.8 01/01/2018Alkaline Phosphatase 170 12/24/2017Bilirubin, Total 0.4 12/24/2017AST 29 12/24/2017ALT 46 12/24/2017Hemoglobin (g/dL)Date Value01/25/2017 15.3 HGB (g/dL)Date Value01/02/2018 9.7 Hematocrit (%)Date Value01/02/2018 29.8 WBC (thou/cmm)Date Value01/02/2018 12.46 Platelet Count (thou/cmm)Date Value01/02/2018 349 Assessment/ Plan1. Acute kidney injury.?Normal baseline renal function. SCr was 0.82 mg/dLon 12/25/17.Most likely cause of of SHARI is ATN now down from 3--->2.48 (from 01/01)Renal function is continuing to slowly improve. There is no obstruction seen on recent CT scan.Agree with continuing?IVF. Doing well with oral intake.No need for LUSTER REPAIRER, patient is not uremic, fluid overloaded, or hyperkalemic.Avoid further IV contrast. Avoid NSAID.Will follow Scr trend, including checking renal function today.??2- Polyuria most probably from ATN recovery/Li induce NDI- ElectrolytesokayContinue 1/2 NS 1:1 replacement.?3. Lung abscess. s/p CT drainage. Antibiotic as per ID. Agree withadjustment of Zosyn for SHARI. Current dose of Zosyn is acceptable.?4. Bipolar disorder.Hold lithium still at this pointBruce Klein APRN-CNPPatient was seen and examined. No new complaintsBreathing is okUA was benign urine eos negativeNo hydronephrosisCreatinine is about the sameOk for dc tomorrow if creatinine remains stableWill arrange follow up in [place] office Normal [facility] Protein mass conc HNO ID: [id number] thor: Dragan Maciaservice: Thoracic SurgeryAuthor Type: PhysicianType: Progress NotesFiled: 01/02/2018 3:22 PMNote Text:Thoracic Surgery Progress NoteSERVICE DATE: 01/02/2018SubjectiveSUBJECTIVE: NAEON. Happy to have chest tube outDenies N/V/CP/SOBDiet: DIET REGULARObjectiveOBJECTIVE:Tuyet ls:Temp (24hrs), Av.9 ?C (98.5 ?F), Min:36.4 ?C (97.5 ?F), Max:37.6 ?C(99.7 ?F)BP 137/83 Pulse 67 Temp 36.7 ?C (98.1 ?F) (Oral) Resp 16 Ht177.8 cm (5' 10 ) Wt 99.6 kg (219 lb 9.3 oz) SpO2 100% BMI 31.51kg/m?O2 Therapy: Room AirIANDO:Date 01/01/18699 - 01/02/1865801/02/18699 - 01/03/18 0659Shift 8549-1599 3004-4020 8179-0974 24 Hour Total 0340-0046 [id number] 24 Hour TotalINTAKE PO 240 360 600 PO 240 360 600 Shift Total 240 360 600OUTPUT Urine 2550 1300 3850 Void (ml) 2550 1300 3850 # of BMs Number of BMs 1 x 1 x Shift Total 2550 1300 3850Weight (kg) 101.7 101.7 101.7 101.7 99.6 99.6 99.6 99.6MEDICATIONSCurrent Facility-Administered Medications:ampicillin-sulbact am 3 g in NaCl 0.9% 100 mL MB+ (UNASYN) 3 g INTRAVENOUSq 6 Hlithium carbonate 600 mg cap(s) (ESKALITH) 600 mg ORAL AT BEDTIMENaCl 0.45% iv infusion 100 mL/hr INTRAVENOUS CONTINUOUSheparin iv infusion (STANDARD NOMOGRAM) 25,000 units in NaCl 0.45% 250 mLPREMIX 0-3,000 Units/hr INTRAVENOUS CONTINUOUSAndheparin RATE CHANGE bolus 1,000-10,000 Units for subtherapeutic apttresults 1,000-10,000 Units INTRAVENOUS PRNtraZODone 150 mg tab(s) (DESYREL) 150 mg ORAL AT BEDTIMEoxyCODONE-acetaminophen 5-325 mg 1-2 tablet (PERCOCET) 1-2 tablet ORAL q 6H PRNQUEtiapine 100 mg tab(s) (SEROquel) 100 mg ORAL AT BEDTIME0.9% NaCl 10 mL 10 mL INTRAVENOUS q 12 H0.9% NaCl 20 mL 20 mL INTRAVENOUS PRNacetaminophen 650 mg tab(s) (TYLENOL) 650 mg ORAL q 6 H PRNprenatal vitamin with folic acid 1 mg 1 tablet 1 tablet ORAL DAILYthiamine 100 mg tab(s) (VITAMIN B1) 100 mg ORAL TIDiv contrast (radiology procedure) INTRAVENOUS DIRECTED PRNcodeine-guaiFENesin 5 mL oral liquid (ROBITUSSIN AC) 5 mL ORAL q 6 H PRNbenztropine 0.5 mg tab(s) (COGENTIN) 0.5 mg ORAL BIDpropranolol 20 mg tab(s) (INDERAL) 20 mg ORAL BIDvenlafaxine ER 150 mg cap(s) (EFFEXOR XR) 150 mg ORAL DAILY0.9% NaCl 3-5 mL 3-5 mL INTRAVENOUS q [address] 40 mg tab(s) (PROTONIX) 40 mg ORAL DAILY (6 AM)Labs:Recent Labs 01/01/1805NA -- 144 143K -- 3.6 3.6CHLOR -- 111* 113*CO2 -- 25 24BUN -- 18 16CREAT -- 2.48* 2.58*GLUC -- 78 78ANION -- 12 10CA -- 8.8 8.3*WBC 12.46* 13.44* 14.75*HB 9.7* 10.4* 10.3*HCT 29.8* 31.9* 31.0*PLT 349 398* 442*Exam:GENERAL: No distress, AlertNEURO: AANDOx3, no focal deficitHEENT: normocephalic, atraumaticLUNGS: Unlabored breathing O2 Therapy: Room AirCARDIAC: Regular rate and rhythm as aboveABDOMEN: Soft, non-tenderEXTREMITIES: LOPEZ, No deformities, No edemaSKIN: Skin color, texture, turgor normal, No rashes or lesionsASSESSMENT AND PLAN:Active Hospital Problems Diagnosis Date Noted- Lung abscess ([facility]) 12/23/2017 Priority: A Chronic- SHARI (acute kidney injury) ([facility]) 12/27/2017 Priority: B- Pulmonary embolism, bilateral ([facility]) 12/24/2017 Priority: B Chronic- Bipolar 1 disorder ([facility]) 12/24/2017- Elevated blood pressure reading 12/24/2017- Unintentional weight loss 12/24/2017- Mediastinal lymphadenopathy 12/24/2017- Thrombocytosis ([facility]) 12/24/2017- Leukocytosis 12/24/2017- Macrocytic anemia 12/24/2017- Severe protein-calorie malnutrition ([facility]) 12/24/2017- Obesity, Class I, BMI 30-34.9 12/23/2017 Chronic- Alcohol abuse 03/17/2015- GERD (gastroesophageal reflux disease) 02/06/2015- Anxiety 02/[birth year]89 year old male with recurrent R lung abscess s/p IR Chest tube and tPAx2?- management per primary- Unasyn per ID- chest tube removed yesterday, CXR stable- Will consider repeat CT chest tmrow- Hep drip for hx PEs --> ok to transition back to Eliquis from ThoracicstandpointAssessment and plan discussed with attending: Dr. Lin AND Thoracic Surgery Service Pager:For questions or concerns Mon-Fri 6a-5p please page [phone].After 5pm and on Weekends and Holidays, please page [phone] if in ICU or [phone] on RNF.SIGNATURE: Wilfred Gmaboa MD PATIENT NAME: Soraya BowserDATE: January 02, 2018 : 11:43 AM Pager: [phone] LahorraPatient seen and CXR reviewed. He looks OK and feels OK s/p R pleuraldrain removal.P-will follow for now. Normal [facility] Protein mass conc HNO ID: [id number] thor: Maximo Cuenca: Hospital MedicineAuthor Type: PhysicianType: Progress NotesFiled: 01/02/2018 6:11 PMNote Text:SERVICE DATE: 01/02/2018SERVICE TIME: 2:07 PM?HOSPITAL MEDICINE PROGRESS NOTESUBJECTIVEInterval HPI: Mr. Bowser is a 52 yo male with a PMHx of Bipolar disorderand recent diagnosis of bilateral PE that was originally treated at [facility] on 12/10 with heparin drip. The patient had worsening SOB while [facility] and therefore imagining revealed a RUL abscess that wasdrained and the patient was discharged home on antibiotics and apixaban.Cultures at [facility] grew anaerobes, suggesting an aspiration pneumonia. Thepatient represented to the hospital on 12/24 with worsening SOB andhemoptysis. Imaging revealed that the RUL abscess was still presented andecreased in size from [id number] to 7k0q1kg. In the ED, the WBC was 24 andthe patient was admitted for treatment of lung abscess.Thoracic surgery was consulted and placed a drain on 12/24 and ID startedthe patient on vanc and zosyn while waiting for the abscess cultureresults. [facility] cultures were collected and the patient was transitioned tozosyn. During his stay, his Cr bumped from 0.8 to 3.5 on 12/28. Nephrologywas consulted and determined that this was bump in Cr was secondary tocontrast induced kidney injury. Patient was administered fluids, zosyndose was decreased, and Li level was collected and lithium was doseadjusted accordingly. Patient was put on heparin drip in case nephrologyrequired a renal biopsy. Patient was transitioned to unasyn for antibioticcoverage as of 01/01.?Today: Patient sitting in chair on presentation this AM. Patient statesthat he is doing much better. He notes decreased SOB with mobility andreports decreased right upper chest pain since the drain was removed on01/01. Patient reports mild diarrhea, which he attributes to theantibiotics. Other ROS otherwise negative.?OBJECTIVEBP 137/83 Pulse 67 Temp (Src) 98.1 (Oral) Resp 16 Ht 5' 10 (1.78m) Wt 224 lb 3.3 oz (101.7kg) SpO2 96% BMI 32.17 kg/(m2).Physical Exam Performed:GENERAL: well appearing, alert and in no acute distressHEART: regular rate and rhythm, no murmers, gallops or rubs, normal S1,S2.LUNGS: lungs clear upon auscultation bilaterally in all six lung dai.No wheezing, rhonchi, or rales.ABDOMEN: Soft, nontender, bowel sounds normal, no palpable organomegaly,no bruits.EXTREMITY: No lower extremity edema. Radial and pedal pulses 2+bilaterally.?Lines, Drains, and Airways:- Line: Central line single lumen placed on 12/27/17 PICC in Left arm (Inplace for 5 days duration)- Drain: Right pigtail medial chest drain - Removed 01/01/18.Recent Labs 345 500WBC 12.46* 13.44*HB 9.7* 10.4*HCT 29.8* 31.9*PLT 349 398*NA -- 144K -- 3.6CHLOR -- 111*CO2 -- 25CREAT -- 2.48*BUN -- 18GLUC -- 78CA -- 8.8Chest X-ray (01/02) IMPRESSION:?After removal of the pigtail drain in the right hemithorax there is nosignificant?interval change in the appearance of the chest as compared to yesterday'sexam.?There is persistent loculated right hemithorax pleural disease.ASSESSMENT AND PLAN1. Bilateral Pulmonary Embolism- Patient presented to ED at [facility] on December 10 for severe SOB andhemoptysis. Patient diagnosed to have bilateral pulmonary emboli and wastreated with a heparin drip which was then transitioned to apixaban.Patient imagining also reported RUL abscess that was treated with drainageand outpatient antibiotics.- Patient has been treated with heparin drip at present, per Nephrology'srequest, in preparation for possible renal biopsy.- Consult nephrology about transitioning patient to apixaban fordischarge.2. Right Upper Lobe Lung Abscess- Patient presented to ED at [facility] on December 10 for severe SOB andhemoptysis. Patient diagnosed to have bilateral pulmonary emboli and wastreated with a heparin drip. Patient imagining also reported RUL abscessthat was treated with drainage and outpatient antibiotics.- Patient presented to [facility] on 12/24 due to worsening chest pain and SOB.CT chest shows change from [id number] to 9X6.4X9.4cm loculated air fluidthin walled abscess in the right upper lobe, associated with mediastinallymphadenopathy, which is consistent with anaerobic abscess henceanaerobic infection.- Cultures obtained from [facility] revealed:+ GBS/ GCS/ Prevotella Oralis- RUL abscess is thought to be secondary to aspiration pneumon as a resultof the cultures growing anaerobes.- MRSA nares is negative.- Patient initially treated with vancomycin and zosyn and was transitionedto zosyn alone after culture results were obtained from [facility].- IR drained the abscess and placed on pleuravac drain that was removed on01/01.- WBC down trending from 13.4 to 12.46 (01/02)- CXR on 01/02 showed improvement in RUL.- ID stopped zosyn on 01/01 and recommended Unasyn through PICC line.- Continue antibiotics until 01/25- Will contact ID to suggest transition to carbapenem for outpatientantibiotic coverage.3. Acute Kidney Injury- Cr 2.48 (0.8 his baseline) as on 01/01. Labs for 01/02 still pending- Patient had rise in Cr on 12/28 from baseline 0.8 to 3.5.- Nephrology consulted- FeNa <1 consistent with pre-renal, contrast induced nephrotoxicity.- Renal US showed no obstruction.- Urine Protein/Cr rate = 0.3.- CK within normal limits - ruled out SHARI secondary to rhabdomyolisis.- Urine eosinophils negative.- SHARI stage 3- Zosyn, lithium dose adjusted according to Cr clearance- Patient receiving IVF 1/2 NS 1:1 replacement- Currently on heparin for possible renal biopsy if there is noimprovement- Consult nephrology about transition to Apixaban (Thoracic surgery onboard).- Patient should have outpatient BMP 3-4 days after discharge to continueto monitor Cr level.4. Leukocytosis- Patient presented with an elevated WBC of 24.- WBC trending down to 12 at present (01/02).- Continue to monitor.5. Bipolar I Disorder- Patient has PMHx of bipolar I disorder that has been treated withSeroquel, Trazadone, Venlafaxine, and [address].- [address] level obtained after Cr increased.- [address] restarted at 600mg after lithium level returned to less than1.2.- [address] level for 01/02 pending.- Continue [address] level at 600mg.- Continue adjusted dose of Trazadone and Seroquel.- Continue home dose of Venlafazine.- Have patient follow up with outpatient Psychiatrist to followpsychiatric medications.6. DVT prophylaxis- Patient currently on heparin drip.- Consult Nephrology about transitioning to apixaban.7. GI prophylaxis- Continue home PPI BID.8. Diarrhea- Patient reports 1-2 diarrhea like BMs a day, likely secondary toantibiotic use.- Encourage probiotic usage.- Monitor for worsening of symptoms.9. Diet- Nutrition on board due to significant weight loss over one month's time.- Follow nutrition's recommendations.Suzie Blancas ZU7Rrmt: 01/02/18Time: 2:06pm Normal [facility] Activated PTTon 01-01-2018 aPTT Coag time (Bld) 49.5 s High 22.0-34.0 [facility] Comment on above: Performed By: #### U DRG2 ####[facility] [place] [address] aPTT Coag time (Bld) 118.0 s Critically high 22.0-34.0 [facility] Comment on above: Performed By: #### U DRG2 ####[address] [address] aPTT Coag time (Bld) 51.5 s High 22.0-34.0 [facility] Comment on above: Performed By: #### T SH3 ####[address] [address] Basic Panelon 01-01-2018 Creatinine mass conc 2.48 mg/dL High 0.67-1.17 [facility] Comment on above: Performed By: #### T SH3 ####[address] [address] Anion gap 3 molar conc 12 mmol/L Normal 8-16 [facility] Comment on above: Performed By: #### T SH3 ####[address] [address] CO2 molar conc 25 mmol/L Normal 21-32 [facility] Comment on above: Performed By: #### T SH3 ####[address] [address] Glucose mass conc 78 mg/dL Normal 70-99 [facility] Comment on above: Performed By: #### T SH3 ####[facility] [place], [place] [address] Urea nitrogen mass conc 18 mg/dL Normal 7-18 [facility] Comment on above: Performed By: #### T SH3 ####[facility] [place], [place] [address] Calcium mass conc 8.8 mg/dL Normal 8.5-10.1 [facility] Comment on above: Performed By: #### T SH3 ####[facility] [place], [place] [address] Chloride molar conc 111 mmol/L High 98-107 [facility] Comment on above: Performed By: #### T SH3 ####[facility] [place], [place] [address] Potassium molar conc 3.6 mmol/L Normal 3.5-5.1 [facility] Comment on above: Performed By: #### T SH3 ####[facility] [place], [place] [address] Sodium molar conc 144 mmol/L Normal 136-145 [facility] Comment on above: Performed By: #### T SH3 ####[address] [address] CHEST 1 VIEWon 01-01-2018 CHEST 1 VIEW Performed at [facility] APPROVED BY: CHESTER CADET MD EXAM TITLE: PORTABLE AP/PA CHEST X RAY DATE: 01/01/2018 05:22 COMPARISON: 12/31/2017 CLINICAL INDICATION/HISTORY: Pleural effusion, abscess of lung. ENCOUNTER: Not applicable TECHNIQUE: Single portable AP/PA radiograph of the chest RESULT: Lines, tubes, and devices: No significant interval change regarding right-sided pleural drainage catheter, overlying the lateral aspect of right midlung zone. Again demonstrated is left upper showed me central venous catheter, tip overlies the upper aspect of the SVC. Lungs and pleura: Little interval change regarding small to moderate size right pleural effusion with associated atelectasis versus consolidation right mid and lower lung zones. No discrete left-sided effusion or pneumothorax. Pulmonary vascularity within normal limits. Cardiomediastinal silhouette: Normal cardiomediastinal silhouette. Other: Osseous structures and soft tissues grossly intact. IMPRESSION: No significant interval change regarding positioning of right-sided pleural drainage catheter. Little interval change regarding small to moderate size right pleural effusion with atelectasis versus consolidation right mid and lower lung zones. Normal [facility] Hemogramon 01-01-2018 Erythrocyte distribution width Auto Ratio (RBC) 14.0 % Normal 11.6-14.4 [facility] Comment on above: Performed By: #### T SH3 ####[place] [address] Hematocrit Auto Volume Fraction (Bld) 31.9 % Low 40.1-51.0 [facility] Comment on above: Performed By: #### T SH3 ####[place] [address] Hemoglobin mass conc (Bld) 10.4 g/dL Low 13.7-17.5 [facility] Comment on above: Performed By: #### T SH3 ####[place] [address] MCH Auto Entitic mass (RBC) 33.4 pg High 25.7-32.2 [facility] Comment on above: Performed By: #### T SH3 ####[place] [address] MCHC Auto mass conc (RBC) 32.6 % Normal 32.3-36.5 [facility] Comment on above: Performed By: #### T SH3 ####[place] [address] MCV Auto Entitic volume (RBC) 102.6 fL High 83.2-95.6 [facility] Comment on above: Performed By: #### T SH3 ####[place] [address] Platelet mean volume Auto Entitic volume (Bld) 9.1 fL Normal 8.7-12.0 [facility] Comment on above: Performed By: #### T SH3 ####[place] [address] Platelets Auto #/vol (Bld) 398 thou/cmm High 141-365 [facility] Comment on above: Performed By: #### T SH3 ####[facility] [place], [place] [address] RBC Auto #/vol (Bld) 3.11 mil/cmm Low 4.63-6.08 [facility] Comment on above: Performed By: #### T SH3 ####[facility] [place], [place] [address] RDW SD 52.8 fl High 36.1-45.8 [facility] Comment on above: Performed By: #### T SH3 ####[facility] [place], [place] [address] WBC Auto #/vol (Bld) 13.44 thou/cmm High 4.23-9.07 [facility] Comment on above: Performed By: #### T SH3 ####[facility] [place], [place] [address] PROCEDUREon 01-01-2018 Protein mass conc HNO ID: [id number] thor: Dragan Maciaservice: Thoracic SurgeryAuthor Type: PhysicianType: ProceduresFiled: 01/02/2018 1:59 PMNote Text:Thoracic SurgeryRight IR Chest tube removed at bedside.Patient tolerated wellNo complication.Will get CXR in AM.Fran Kunz MD PGY-4Pager: [phone], 7:33 PMAs discussed and thanks. Normal [facility] PROGRESSon 01-01-2018 Protein mass conc HNO ID: [id number] thor: Tomeka Crossvice: [facility] MedicineAuthor Type: PhysicianType: Progress NotesFiled: 01/01/2018 8:00 PMNote Text:SERVICE DATE: 01/01/2018SERVICE TIME: 1:12 PMHOSPITAL MEDICINE PROGRESS NOTENIGHT AND WEEKEND COVERAGE:SUBJECTIVEInterval HPI: ImprovedNo overnight events. Today the ptient is doing well. He denies shortnessof breath or fever and reports significant improvement in pleuretic chestpain. He, however, still has some cough while taking deep breath. He iscontinuing having increased urine output and frequency. No blood in theurine, or gum bleeding.OBJECTIVEBP 117/71 Pulse 75 Temp (Src) 97.9 (Oral) Resp 18 Ht 5' 10 (1.78m) Wt 224 lb 3.3 oz (101.7kg) SpO2 96% BMI 32.17 kg/(m2).Physical Exam Performed:GENERAL: GENERAL APPEARANCE NCCC: well appearing, alert and in no acutedistressHEART: HEART CCF: regular rate and rhythm, no murmer, gallop or rub,normal, S1, S2, no lifts, heaves, or thrills, PMI not displacedLUNGS: LUNGS CCF: clear to percussion and auscultation and no rales.Bilateral basal crepitus.ABDOMEN: ABDOMEN: Soft, nontender, bowel sounds normal, no palpableorganomegaly, no bruits.EXTREMITY: EXTREMITY EXAM: Normal exam of the extremities. No clubbing,cyanosis, or edema.Lines, Drains, and Airways Line Central Line Single Lumen 12/27/17 1132 Peripherally Inserted (PICC) LeftArm Through Introducer 4.0 Somali 4 days Drain Drain/Tube 12/25/17 1321 Pigtail Right Medial Chest Drain #1 6 daysMedications: ReviewedDiagnostic tests reviewed:Most recent imagingRecent Labs 12/31/1804WBC 13.44* 14.75* 15.06* < > 20.94*RBC 3.11* 3.04* 3.16* < > 3.26*HB 10.4* 10.3* 10.5* < > 11.1*HCT 31.9* 31.0* 32.7* < > 33.0*PLT 398* 442* 478* < > 394*MCV 102.6* 102.0* 103.5* < > 101.2*MCH 33.4* 33.9* 33.2* < > 34.0*MPV 9.1 8.9 9.1 < > 9.2RDW 14.0 13.9 13.9 < > 13.2METAMYELO -- -- -- -- 2.0< > = values in this interval not displayed.Recent Labs 12/31/1804GLUC 78 78 75 < > 71 < > 90 98NA 144 143 141 < > 140 < > 138 138K 3.6 3.6 3.6 < > 3.5 < > 3.6 3.4*CHLOR 111* 113* 112* < > 109* < > 107 103CO2 25 24 23 < > 26 < > 24 26CREAT 2.48* 2.58* 2.78* < > 3.18* < > 0.82 0.88BUN 18 16 17 < > 16 < > 4* 7ANION 12 10 10 < > -- < > -- 12CA 8.8 8.3* 8.4* < > 8.3* < > 8.7 8.5TPROT -- -- -- -- -- -- -- 6.9ALB -- -- -- -- 1.7* -- 1.9* 2.3*TBILI -- -- -- -- -- -- -- 0.4ALKPHOS -- -- -- -- -- -- -- 170*AST -- -- -- -- -- -- -- 29ALT -- -- -- -- -- -- -- 46< > = values in this interval not displayed.Most recent labsChest X-ray (01/01) IMPRESSION:?No significant interval change regarding positioning of right-sidedpleuraldrainage catheter.?Little interval change regarding small to moderate size right pleuraleffusionwith atelectasis versus consolidation right mid and lower lung zones.CARE COORDINATION:No Patient Care Coordination Note on file.ASSESSMENT AND PLANAssessment AND Plan, all Hosp ProblemsActive Hospital Problems as of 01/01/2018 Noted - Resolved Cardiovascular Pulmonary embolism, bilateral (HCC) 12/24/2017 - Present Current Assessment AND Plan- UA analysis is positive for RBCs- today he denied any pinkish urine- Currently on heparin for possible renal biopsy per Nephrology. Elevated blood pressure reading 12/24/2017 - Present Current Assessment AND Plan - Continue to monitor BP- Suspect undiagnosed HTN Pulmonary * (Principal)Lung abscess (HCC) 12/23/2017 - Present Current Assessment AND Plan - CT chest shows change from [id number] to 9X6.4X9.4cm loculated airfluid thin walled abscess in the right upper lobe (12/29), associated withmediastinal lymphadenopathy, which is consistent with anaerobic abscesshence anaerobic infection.- s/p IR drain 12/07 at OSH + GBS/ GCS/ Prevotella Oralis- WBC is 14.7- Possibly from aspiration pneumonia- Urine toxicology is positive for opiates- IR drained the abscess, on pleurevac drain, possible removal today.Awaiting ID's plan.- Abscess culture is positive for moderate mixed anaerobic lavelle- stop vancomycin and continue Unasyn per ID (high vancomycin trough)through PICC line- Continue antibiotics until 01/25- MRSA nares is negative. Gastrointestinal GERD (gastroesophageal reflux disease) 02/06/2015 - Present Current Assessment AND Plan - Continue home PPI Severe protein-calorie malnutrition ([facility]) 12/24/2017 - Present Current Assessment AND Plan Nephrology SHARI (acute kidney injury) ([facility]) 12/27/2017 - Present Current Assessment AND Plan- Cr today 2.48 (0.8 his baseline)- SHARI stage 3- I/O today: -3430- Nephrology on board- Most likely Contrast- induced injury.- FeNA is <1 consistant with pre-renal, contrast-induced nephrotoxicity,GN or antibiotic Induced- Renal US didn't show any obstruction- UPCR is 0.3- urine eosinophiles are negative- CK is within normal, not duo to rhabdomyolisis- Zosyn, lithium dose adjusted according to Cr clearance- Recevied 1 L IV bolus and on 100 ml/h 0.45% NaCl, no need for urgentdialysis- Polyuria today most probably from ATN recovery/Li induce- Currently on heparin for possible renal biopsy if there is noimprovement- Change IVF to 05/24 NS 1:1 replacement Hematology Thrombocytosis (HCC) 12/24/2017 - Present Leukocytosis 12/24/2017 - Present Current Assessment AND Plan - Likely secondary to lung abscess. Macrocytic anemia 12/24/2017 - Present Current Assessment AND Plan - Likely due to alcohol abuse. Infectious Disease Mediastinal lymphadenopathy 12/24/2017 - Present Current Assessment AND Plan - Likely reactive from infection. Psychiatry Anxiety 02/13/2014 - Present Current Assessment AND Plan - Continue with Propanolol Alcohol abuse 03/17/2015 - Present Current Assessment AND Plan - Patient denied alcohol abuse.- CIWA will be implemented. Bipolar 1 disorder ([facility]) 12/24/2017 - Present Current Assessment AND Plan - rechecked Li level is 1.1- will restart lithium 600 mg- not likely the cause of SHARI accourding to nephrology- Continue other home medications Other Obesity, Class I, BMI 30-34.9 12/23/2017 - Present Current Assessment AND Plan - Counseled- will be followed up by PCP Unintentional weight loss 12/24/2017 - Present Current Assessment AND Plan - See plan for diarrhea as above.Medication and Non-Pharmacologic VTE Prophylaxis/AnticoagulantsAnti coagulant AND Antiplatelet Medications Start Dose Route Frequency Ordered Stop 12/28/17 1600 heparin iv infusion (STANDARD NOMOGRAM) 25,000 units inNaCl 0.45% 250 mL PREMIX (Heparin Infusion + Rate Change Bolus) 0-30mL/hr 0-3,000 Units/hr INTRAVENOUS CONTINUOUS 12/28/17 1534 --12/23/17 2300 vte pharmacologic prophylaxis contraindicated (ct,pa)12/23/17 2300 activity - mobilize patient ([place])VTE Prophylaxis: VTE prophylaxis appropriatePlan of care discussed with: AttendingSIGNATURE: Abel Collins Cha, MD PATIENT NAME: Soraya BowserDATE: January 01, 2018 : 1:12 PM PAGER/CONTACT #: Pager: [phone] independentlyAgreed with the above notes by Dr. Mccoy which reflects my input with thefollowing additionsNo specific complaintsExam unremarkableAKI stableChest tube to be removed todayAttestation signed byTomeka Arroyo MDHMS AttendingAugust 20177:58 PM Normal [facility] Protein mass conc HNO ID: [id number] thor: Francois Awade: NephrologyAuthor Type: PhysicianType: Progress NotesFiled: 01/01/2018 11:46 AMNote Text:Nephrology Progress NoteFollowing for SHARI.Pt denies SOB at rest. No current CP.Creatinine 2.4UO ~3.5 LCurrent Inpatient Medications:Current Facility-Administered Medications Ordered in Epic:ampicillin-sulbactam 3 g in NaCl 0.9% 100 mL MB+ (UNASYN) 3 g INTRAVENOUSq 6 H Trang Leonard Last Rate: 200 mL/hr at 01/01/18 0527 3 g at 171380zxybuzp carbonate 600 mg cap(s) (ESKALITH) 600 mg ORAL AT BEDTIME Arrvind(Res) Raghunath 600 mg at 12/31/17 2133NaCl 0.45% iv infusion 100 mL/hr INTRAVENOUS CONTINUOUS Blu Zendejas Rate: 100 mL/hr at 12/31/17 2132 100 mL/hr at 12/31/17 2132heparin iv infusion (STANDARD NOMOGRAM) 25,000 units in NaCl 0.45% 250 mLPREMIX 0-3,000 Units/hr INTRAVENOUS CONTINUOUS Olimpia (Res) Rebeln Stoppedat 01/01/18 0644Andheparin RATE CHANGE bolus 1,000-10,000 Units for subtherapeutic apttresults 1,000-10,000 Units INTRAVENOUS PRN Olimpia (Res) Rebeln 4,100 Unitsat 12/31/17 2237traZODone 150 mg tab(s) (DESYREL) 150 mg ORAL AT BEDTIME Arrvind (Res)Raghunath 150 mg at 12/31/17 2132oxyCODONE-acetaminophen 5-325 mg 1-2 tablet (PERCOCET) 1-2 tablet ORAL q 6H PRN Franklin Neely 2 tablet at 12/31/17 1325QUEtiapine 100 mg tab(s) (SEROquel) 100 mg ORAL AT BEDTIME Arrvind (Res)Raghunath 100 mg at 12/31/17 26595.9% NaCl 10 mL 10 mL INTRAVENOUS q 12 H Mayuri (Wood Block Artist) Slick 10 mL at01/01/18 62799.9% NaCl 20 mL 20 mL INTRAVENOUS PRN Mayuri (Wood Block Artist) Markleacetaminophen 650 mg tab(s) (TYLENOL) 650 mg ORAL q 6 H PRN Malik (Res)MD Carmen 650 mg at 12/27/17 0900prenatal vitamin with folic acid 1 mg 1 tablet 1 tablet ORAL DAILY Yashu(Res) Dhamija 1 tablet at 01/01/18 0806thiamine 100 mg tab(s) (VITAMIN B1) 100 mg ORAL TID Yashu (Res) Kndwzio019 mg at 01/01/18 0806iv contrast (radiology procedure) INTRAVENOUS DIRECTED PRN Ming (Res)Erosmijacodeine-guaiFENesi n 5 mL oral liquid (ROBITUSSIN AC) 5 mL ORAL q 6 H PRNCarrie Juan Ramon Lopezuso 5 mL at 12/25/17 1329benztropine 0.5 mg tab(s) (COGENTIN) 0.5 mg ORAL BID Yashu (Res) Dhamija0.5 mg at 01/01/18 0807propranolol 20 mg tab(s) (INDERAL) 20 mg ORAL BID Yashu (Res) Dhamija 20mg at 01/01/18 0806venlafaxine ER 150 mg cap(s) (EFFEXOR XR) 150 mg ORAL DAILY Yashu (Res)Dhamija 150 mg at 01/01/18 43684.9% NaCl 3-5 mL 3-5 mL INTRAVENOUS q 12 H Yashu (Res) Dhamija 5 mL at12/28/[address] 40 mg tab(s) (PROTONIX) 40 mg ORAL DAILY (6 AM) Jeremie Lira 40 mg at 01/01/18 0527No current [facility]-ordered outpatient prescriptions on file.Vitals:BP 131/86 Pulse 69 Temp 37.1 ?C (98.8 ?F) (Oral) Resp 18 Ht177.8 cm (5' 10 ) Wt 101.7 kg (224 lb 3.3 oz) SpO2 97% BMI 32.17kg/m?BLOOD PRESSURE RANGE: Systolic (24hrs), Av , Min:121 , Max:133; Diastolic (24hrs), Av, Min:71, Max:7624HR INTAKE/OUTPUT:Intake/Output Summary (Last 24 hours) at 01/01/18 1144Last data filed at 01/01/18 0643 Gross per 24 hourIntake 0 mlOutput 3430 mlNet -3430 mlPhysical exam:Constitutional: NADSkin: no rash, turgor wnlHeent: eomi, mmmNeck: no bruits or jvd notedCardiovascular: S1, S2 normalRespiratory: CTABAbdomen: +bs, soft, nt, ndExt: no lower extremity edemaData:Labs:Glucose (mg/dL)Date Value01/01/2018 78 Potassium (mEq/L)Date Value01/01/2018 3.6 Sodium (mEq/L)Date Value01/01/2018 144 Chloride (mEq/L)Date 01/01/2018 111 CO2 (mEq/L)Date 01/01/2018 25 Creatinine (mg/dL)Date Value01/01/2018 2.48 BUN (mg/dL)Date Value01/01/2018 18 Anion Gap (no units)Date Value01/01/2018 12 Calcium (mg/dL)Date Value01/01/2018 8.8 Recent Labs 12/31/1804WBC 13.44* 14.75* 15.06*HB 10.4* 10.3* 10.5*HCT 31.9* 31.0* 32.7*MCV 102.6* 102.0* 103.5*PLT 398* 442* 478*Recent Labs 12/31/1804NA 144 143 141K 3.6 3.6 3.6CO2 25 24 23BUN 18 16 17CREAT 2.48* 2.58* 2.78*CA 8.8 8.3* 8.4*Assessment and Plan1. Acute kidney injury.?Normal baseline renal function. SCr was 0.82 mg/dLon 12/25/17.Most likely cause of of SHARI is ATN now down from 3--->2.48Renal function is continuing to slowly improve. There is no obstruction seen on recent CT scan.Agree with continuing IVF. Continue to encourage oral intake.No need for LUSTER REPAIRER.Avoid further IV contrast. Avoid NSAID.?2- Polyuria most probably from ATN recovery/Li induce NDI- ElectrolytesokayChange IVF to 1/2 NS 1:1 replacement?3. Lung abscess. s/p CT drainage. Antibiotic as per ID. Agree withadjustment of Zosyn for SHARI. Current dose of Zosyn is acceptable.?4. Bipolar disorder.I will hold to restart lithium?Francois Wilhelm MD [facility] Protein mass conc HNO ID: [id number] thor: Dragan Maciaservice: Thoracic SurgeryAuthor Type: PhysicianType: Progress NotesFiled: 01/01/2018 9:58 AMNote Text:Thoracic Surgery Progress NoteSERVICE DATE: 01/01/2018Vascular AND Thoracic Surgery Service Pager:For questions or concerns Mon-Tue 6a-5p please page [phone].After 5pm and on Weekends and Holidays, please page [phone] if in ICU or [phone] on RNF.SubjectiveSUBJECTIVE:NAEON Diet: DIET REGULARObjectiveOBJECTIVE:Tuyet ls:Temp (24hrs), Av.8 ?C (98.2 ?F), Min:36.5 ?C (97.7 ?F), Max:37 ?C(98.6 ?F)BP 117/71 Pulse 75 Temp 36.6 ?C (97.9 ?F) (Oral) Resp 18 Ht177.8 cm (5' 10 ) Wt 101.7 kg (224 lb 3.3 oz) SpO2 96% BMI 32.17kg/m?O2 Therapy: Room AirIANDO:Date 12/31/17 07 - 01/01/18 0659 01/01/18 07 - 01/02/18 0659Shift 8521-2963 4291-0673 5438-3918 24 Hour Total 1944-7672 [id number] 24 Hour TotalINTAKE Shift TotalOUTPUT Urine 1500 1900 3400 Void (ml) 1500 1900 3400 Tubes 30 30 Drain/Tube Output (Drain/Tube 12/25/17 1321 Pigtail Right Medial ChestDrain #1) 30 30 Shift Total 1500 1930 3430Weight (kg) 101.7 101.7 101.7 101.7 101.7 101.7 101.7 101.7MEDICATIONSCurrent Facility-Administered Medications:ampicillin-sulbact am 3 g in NaCl 0.9% 100 mL MB+ (UNASYN) 3 g INTRAVENOUSq 6 Hlithium carbonate 600 mg cap(s) (ESKALITH) 600 mg ORAL AT BEDTIMENaCl 0.45% iv infusion 100 mL/hr INTRAVENOUS CONTINUOUSheparin iv infusion (STANDARD NOMOGRAM) 25,000 units in NaCl 0.45% 250 mLPREMIX 0-3,000 Units/hr INTRAVENOUS CONTINUOUSAndheparin RATE CHANGE bolus 1,000-10,000 Units for subtherapeutic apttresults 1,000-10,000 Units INTRAVENOUS PRNtraZODone 150 mg tab(s) (DESYREL) 150 mg ORAL AT BEDTIMEoxyCODONE-acetaminophen 5-325 mg 1-2 tablet (PERCOCET) 1-2 tablet ORAL q 6H PRNQUEtiapine 100 mg tab(s) (SEROquel) 100 mg ORAL AT BEDTIME0.9% NaCl 10 mL 10 mL INTRAVENOUS q 12 H0.9% NaCl 20 mL 20 mL INTRAVENOUS PRNacetaminophen 650 mg tab(s) (TYLENOL) 650 mg ORAL q 6 H PRNprenatal vitamin with folic acid 1 mg 1 tablet 1 tablet ORAL DAILYthiamine 100 mg tab(s) (VITAMIN B1) 100 mg ORAL TIDiv contrast (radiology procedure) INTRAVENOUS DIRECTED PRNcodeine-guaiFENesin 5 mL oral liquid (ROBITUSSIN AC) 5 mL ORAL q 6 H PRNbenztropine 0.5 mg tab(s) (COGENTIN) 0.5 mg ORAL BIDpropranolol 20 mg tab(s) (INDERAL) 20 mg ORAL BIDvenlafaxine ER 150 mg cap(s) (EFFEXOR XR) 150 mg ORAL DAILY0.9% NaCl 3-5 mL 3-5 mL INTRAVENOUS q [address] 40 mg tab(s) (PROTONIX) 40 mg ORAL DAILY (6 AM)Labs:Recent Labs 12/31/1804NA 144 143K 3.6 3.6CHLOR 111* 113*CO2 25 24BUN 18 16CREAT 2.48* 2.58*GLUC 78 78ANION 12 10CA 8.8 8.3*WBC 13.44* 14.75*HB 10.4* 10.3*HCT 31.9* 31.0*PLT 398* 442*Exam:GENERAL: No distress, AlertNEURO: AANDOx3, CN II-XII grossly intactHEENT: normocephalic, atraumaticLUNGS: Unlabored breathing O2 Therapy: Room Air, Right CT -20 sxn, no leakCARDIAC: Regular rate and rhythm as aboveABDOMEN: Soft, non-tender, non-distendedEXTREMITIES: LOPEZ, No deformities, No edemaSKIN: Skin color, texture, turgor normal, No rashes or lesionsASSESSMENT AND PLAN:Active Hospital Problems Diagnosis Date Noted- Lung abscess ([facility]) 12/23/2017 Priority: A Chronic- SHARI (acute kidney injury) ([facility]) 12/27/2017 Priority: B- Pulmonary embolism, bilateral ([facility]) 12/24/2017 Priority: B Chronic- Bipolar 1 disorder ([facility]) 12/24/2017- Elevated blood pressure reading 12/24/2017- Unintentional weight loss 12/24/2017- Mediastinal lymphadenopathy 12/24/2017- Thrombocytosis ([facility]) 12/24/2017- Leukocytosis 12/24/2017- Macrocytic anemia 12/24/2017- Severe protein-calorie malnutrition ([facility]) 12/24/2017- Obesity, Class I, BMI 30-34.9 12/23/2017 Chronic- Alcohol abuse 03/17/2015- GERD (gastroesophageal reflux disease) 02/06/2015- Anxiety 02/13/20189 year old male with recurrent R lung abscess s/p IR Chest tube and tPAx2?- management per primary- Unasyn per ID- Cont R CT to -20 sxn- CXR w persistent R-sided opacity, mildly improved- Hep drip for hx PEs --> ok to transition back to Eliquis from Thoracicstandpoint?Assessment and plan discussed with attending: Dr. JohnsonATURE: Fran Kunz MD PATIENT NAME: Soraya BowserDATE: January 01, 2018 : 6:49 AMPatient seen and cxr reviewed.P-DC drain today.Vascular AND Thoracic Surgery Service Pager:For questions or concerns Mon-Fri 6a-5p please page [phone].After 5pm and on Weekends and Holidays, please page [phone] if in ICU or [phone] on RNF. Normal [facility] Protein mass conc HNO ID: [id number] Author: Downtime Note Service: (none) Author Type: (none) Type: Progress Notes Filed: 01/01/2018 5:12 AM Note Text: Epic Scheduled Downtime: 01/01/2018 1:05:00 AM to 01/01/2018 4:56:36 AM Normal [facility] Activated PTTon 12-31-2017 aPTT Coag time (Bld) 46.2 s High 22.0-34.0 [facility] Comment on above: Performed By: #### T SH3 ####[facility] [place] [address] aPTT Coag time (Bld) 31.7 s Normal 22.0-34.0 [facility] Comment on above: Performed By: #### T SH3 ####[place] [address] aPTT Coag time (Bld) 24.6 s Normal 22.0-34.0 [facility] Comment on above: Performed By: #### T SH3 ####[place] [address] Basic Panelon 12-31-2017 Creatinine mass conc 2.58 mg/dL High 0.67-1.17 [facility] Comment on above: Performed By: #### T SH3 ####[place] [address] Anion gap 3 molar conc 10 mmol/L Normal 8-16 [facility] Comment on above: Performed By: #### T SH3 ####[place] [address] CO2 molar conc 24 mmol/L Normal 21-32 [facility] Comment on above: Performed By: #### T SH3 ####[place] [address] Glucose mass conc 78 mg/dL Normal 70-99 [facility] Comment on above: Performed By: #### T SH3 ####[place] [address] Urea nitrogen mass conc 16 mg/dL Normal 7-18 [facility] Comment on above: Performed By: #### T SH3 ####[place] [address] Calcium mass conc 8.3 mg/dL Low 8.5-10.1 [facility] Comment on above: Performed By: #### T SH3 ####[facility] [place], [place] [address] Chloride molar conc 113 mmol/L High 98-107 [facility] Comment on above: Performed By: #### T SH3 ####[facility] [place], [place] [address] Potassium molar conc 3.6 mmol/L Normal 3.5-5.1 [facility] Comment on above: Performed By: #### T SH3 ####[facility] [place], [place] [address] Sodium molar conc 143 mmol/L Normal 136-145 [facility] Comment on above: Performed By: #### T SH3 ####[facility] [place] [address] CHEST 1 VIEWon 12-31-2017 CHEST 1 VIEW Performed at [facility] APPROVED BY: CHESTER CADET MD EXAM TITLE: PORTABLE AP/PA CHEST X RAY DATE: 12/31/2017 04:47 COMPARISON: 12/30/2017 CLINICAL INDICATION/HISTORY: Pleural effusion, abscessogram without pneumonia. ENCOUNTER: Not applicable TECHNIQUE: Single portable AP/PA radiograph of the chest RESULT: Lines, tubes, and devices: No significant interval change regarding appearance of right sided pleural drainage catheter, overlying the lateral aspect of the right midlung zone. No significant interval change regarding left upper extremity central venous catheter with tip overlying the confluence of the upper third of the SVC. Lungs and pleura: Small moderate size right pleural effusion with associated atelectasis versus consolidation of the right mid and lower lung zones, essentially unchanged in appearance to previous examination. No discrete left-sided effusion or new airspace consolidation. No pneumothorax. Cardiomediastinal silhouette: Stable Other: Osseous structures and soft tissues grossly intact. IMPRESSION: No significant interval change running appearance of right-sided pleural drain, overlying the lateral aspect of the right midlung zone. Small to moderate size right pleural effusion with associated atelectasis versus consolidation of the right mid and lower lung zones, essentially unchanged in appearance. Normal [facility] CONSULT PROGon 12-31-2017 Protein mass conc HNO ID: [id number] thor: Trang RyanraService: Infectious DiseaseAuthor Type: PhysicianType: Consult Progress NoteFiled: 12/31/2017 1:20 PMNote Text:INFECTIOUS DISEASE PROGRESS NOTEPatient Name: Soraya Bowser HISTORY:R pleurex drain output noted.Stable on room air. Reports right chest pain todayLeukcytosis trending down 14Denies f/c/n/v. + some diarrhea, not frequentAbscess cx with anaerobesASSESSMENT:1. Sepsis 2/2 # 22. Right Upper Lobe Loculated Lung Abscess -- s/p IR drain 12/07 at OSH + GBS/ GCS/ Prevotella Oralis -- s/p repeat IR pigtail catheter/CT placed at [facility] 12/25/17 - cx: ngtd -- likely aspiration related v/s complicated community acquired pna3. Leukocytosis4. Fever/ Chills5. Dyspnea/ Chest Pain due to #26. Ac on Chronic Anemia7. SHARI ? Etiology. Urine eos neg.PLAN:DC Zosyn. Start Unasyn- likely iv abx till 18F/U Final abscess CulturesFollow clinicallyMEDICATIONS: reviewed.Current hospital medications:lithium carbonate 600 mg cap(s) (ESKALITH) 600 mg ORAL AT BEDTIMENaCl 0.45% iv infusion 100 mL/hr INTRAVENOUS CONTINUOUSpiperacillin-tazobac hayes 3.375 g in dextrose (iso-osmotic) 50 mL (ZOSYN)3.375 g INTRAVENOUS q 8 Hheparin iv infusion (STANDARD NOMOGRAM) 25,000 units in NaCl 0.45% 250 mLPREMIX 0-3,000 Units/hr INTRAVENOUS CONTINUOUSheparin RATE CHANGE bolus 1,000-10,000 Units for subtherapeutic apttresults 1,000-10,000 Units INTRAVENOUS PRNtraZODone 150 mg tab(s) (DESYREL) 150 mg ORAL AT BEDTIMEoxyCODONE-acetaminophen 5-325 mg 1-2 tablet (PERCOCET) 1-2 tablet ORAL q 6H PRNQUEtiapine 100 mg tab(s) (SEROquel) 100 mg ORAL AT BEDTIME0.9% NaCl 10 mL 10 mL INTRAVENOUS q 12 H0.9% NaCl 20 mL 20 mL INTRAVENOUS PRNacetaminophen 650 mg tab(s) (TYLENOL) 650 mg ORAL q 6 H PRNprenatal vitamin with folic acid 1 mg 1 tablet 1 tablet ORAL DAILYthiamine 100 mg tab(s) (VITAMIN B1) 100 mg ORAL TIDiv contrast (radiology procedure) INTRAVENOUS DIRECTED PRNcodeine-guaiFENesin 5 mL oral liquid (ROBITUSSIN AC) 5 mL ORAL q 6 H PRNbenztropine 0.5 mg tab(s) (COGENTIN) 0.5 mg ORAL BIDpropranolol 20 mg tab(s) (INDERAL) 20 mg ORAL BIDvenlafaxine ER 150 mg cap(s) (EFFEXOR XR) 150 mg ORAL DAILY0.9% NaCl 3-5 mL 3-5 mL INTRAVENOUS q [address] 40 mg tab(s) (PROTONIX) 40 mg ORAL DAILY (6 AM)PHYSICAL EXAM:Vital signs: BP 123/78 Pulse 66 Temp 37 ?C (98.6 ?F) (Oral) Resp18 Ht 177.8 cm (5' 10 ) Wt 101.7 kg (224 lb 3.3 oz) SpO2 95% BMI 32.17 kg/m?General: alert, oriented, NADLungs: R basilar crackles, diminished BS. R pleurex drain--> CTHeart: regular rate and rhythmAbdomen: soft, non tender, non distended, BS+Extremities: no swollen jointsSkin: no rashIV sites - L PICC site (12/27) site cleanLab data: reviewedRecent Labs 12/31/1803719WBC 14.75* 15.06* 20.19* 19.85*HB 10.3* 10.5* 10.4* 11.0*PLT 442* 478* 507* 538*INR -- -- -- 0.92NA 143 141 139 --K 3.6 3.6 3.6 --CO2 24 23 22 --BUN 16 17 17 --CREAT 2.58* 2.78* 3.00* --Microbiology data:12/25 Abscess cx: young growthMRSA nares negImaging data: reviewedCT chest: 12/29Marked improvement in the appearance of the right lung abscess afterpercutaneousdrainage.Impr oving lower lung zone infiltrates.Right-sided volume loss secondary to atelectasis.Continued mediastinal lymphadenopathy which is probably reactive innature.Thank you for the consult. We will continue to follow the patient withyou. Please call for any questions or concerns.Trang Valle MD Normal [facility] Hemogramon 12-31-2017 Erythrocyte distribution width Auto Ratio (RBC) 13.9 % Normal 11.6-14.4 [facility] Comment on above: Performed By: #### T SH3 ####[place] [address] Hematocrit Auto Volume Fraction (Bld) 31.0 % Low 40.1-51.0 [facility] Comment on above: Performed By: #### T SH3 ####[place] [address] Hemoglobin mass conc (Bld) 10.3 g/dL Low 13.7-17.5 [facility] Comment on above: Performed By: #### T SH3 ####[place] [address] MCH Auto Entitic mass (RBC) 33.9 pg High 25.7-32.2 [facility] Comment on above: Performed By: #### T SH3 ####[place] [address] MCHC Auto mass conc (RBC) 33.2 % Normal 32.3-36.5 [facility] Comment on above: Performed By: #### T SH3 ####[place] [address] MCV Auto Entitic volume (RBC) 102.0 fL High 83.2-95.6 [facility] Comment on above: Performed By: #### T SH3 ####[place] [address] Platelet mean volume Auto Entitic volume (Bld) 8.9 fL Normal 8.7-12.0 [facility] Comment on above: Performed By: #### T SH3 ####[place] [address] Platelets Auto #/vol (Bld) 442 thou/cmm High 141-365 [facility] Comment on above: Performed By: #### T SH3 ####[facility] [place], [place] [address] RBC Auto #/vol (Bld) 3.04 mil/cmm Low 4.63-6.08 [facility] Comment on above: Performed By: #### T SH3 ####[facility] [place], [place] [address] RDW SD 52.2 fl High 36.1-45.8 [facility] Comment on above: Performed By: #### T SH3 ####[facility] [place], [place] [address] WBC Auto #/vol (Bld) 14.75 thou/cmm High 4.23-9.07 [facility] Comment on above: Performed By: #### T SH3 ####[address] [address] NURSING PROGon 12-31-2017 Protein mass conc HNO ID: [id number] thor: Summer (Rn) VALARIE Vizcarraervice: NursingAuthor Type: Registered NurseType: Nursing Progress NoteFiled: 12/31/2017 1:00 AMNote Text:Surgery paged multiple times, patient is stating he is having increasednew pain and burning at chest tube site on right chest. Michael with [facility] and stated will be by to assess patient. Michael also aware patient'schest tube output after TPA administration was 54 mL. No orders received.Patient is stating he does not want any pain medications at this time.Will continue to monitor. Normal [facility] PROGRESSon 12-31-2017 Protein mass conc HNO ID: [id number] thor: Tomeka Bradye: [facility] MedicineAuthor Type: PhysicianType: Progress NotesFiled: 12/31/2017 10:32 PMNote Text:SERVICE DATE: 12/31/2017SERVICE TIME: 2:37 PMHOSPITAL MEDICINE PROGRESS NOTENIGHT AND WEEKEND COVERAGE: From 7am - 7pm, please call [phone]: Covered by [phone] HPI: ImprovedToday the aptient is doing well. He complained of mild chest painovernight, no cough or SOB. Afebrile. He is having increase urine outputand frequency. No blood in the urine.OBJECTIVEBP 123/78 Pulse 66 Temp (Src) 98.6 (Oral) Resp 18 Ht 5' 10 (1.78m) Wt 224 lb 3.3 oz (101.7kg) SpO2 95% BMI 32.17 kg/(m2).Physical Exam Performed:GENERAL: GENERAL APPEARANCE NCCC: well appearing, alert and in no acutedistressHEART: HEART CCF: regular rate and rhythm, no murmer, gallop or rub,normal, S1, S2, no lifts, heaves, or thrills, PMI not displacedLUNGS: LUNGS CCF: clear to percussion and auscultation and no ralesABDOMEN: ABDOMEN: Soft, nontender, bowel sounds normal, no palpableorganomegaly, no bruits.EXTREMITY: EXTREMITY EXAM: Normal exam of the extremities. No clubbing,cyanosis, or edema.Lines, Drains, and Airways Line Central Line Single Lumen 12/27/17 1132 Peripherally Inserted (PICC) LeftArm Through Introducer 4.0 Somali 4 days Drain Drain/Tube 12/25/17 1321 Pigtail Right Medial Chest Drain #1 6 daysMedications: ReviewedDiagnostic tests reviewed:Most recent imagingRecent Labs 12/31/1803WBC 14.75* 15.06* 20.19* < > 20.94*RBC 3.04* 3.16* 3.05* < > 3.26*HB 10.3* 10.5* 10.4* < > 11.1*HCT 31.0* 32.7* 31.3* < > 33.0*PLT 442* 478* 507* < > 394*MCV 102.0* 103.5* 102.6* < > 101.2*MCH 33.9* 33.2* 34.1* < > 34.0*MPV 8.9 9.1 8.9 < > 9.2RDW 13.9 13.9 13.7 < > 13.2METAMYELO -- -- -- -- 2.0< > = values in this interval not displayed.Recent Labs 12/30/392797 600 335212/24/179957GLUC 78 75 88 47* 71 < > 90 98NA 143 141 -- 139 140 < > 138 138K 3.6 3.6 -- 3.6 3.5 < > 3.6 3.4*CHLOR 113* 112* -- 109* 109* < > 107 103CO2 24 23 -- 22 26 < > 24 26CREAT 2.58* 2.78* -- 3.00* 3.18* < > 0.82 0.88BUN 16 17 -- 17 16 < > 4* 7ANION 10 10 -- 12 -- < > -- 12CA 8.3* 8.4* -- 8.2* 8.3* < > 8.7 8.5TPROT -- -- -- -- -- -- -- 6.9ALB -- -- -- -- 1.7* -- 1.9* 2.3*TBILI -- -- -- -- -- -- -- 0.4ALKPHOS -- -- -- -- -- -- -- 170*AST -- -- -- -- -- -- -- 29ALT -- -- -- -- -- -- -- 46< > = values in this interval not displayed.Most recent labsCARE COORDINATION:No Patient Care Coordination Note on file.ASSESSMENT AND PLANAssessment AND Plan, all Hosp ProblemsActive Hospital Problems as of 12/31/2017 Noted - Resolved Cardiovascular Pulmonary embolism, bilateral (HCC) 12/24/2017 - Present Current Assessment AND Plan- UA analysis is positive for RBCs- today he denied any pinkish urine- Eliquis changed to heparin today for possible renal biopsy perNephrology. Elevated blood pressure reading 12/24/2017 - Present Current Assessment AND Plan - Continue to monitor BP- Suspect undiagnosed HTN Pulmonary * (Principal)Lung abscess (HCC) 12/23/2017 - Present Current Assessment AND Plan - CT chest shows change from 20T80D1rs to 9X6.4X9.4cm loculated airfluid thin walled abscess in the right upper lobe, associated withmediastinal lymphadenopathy, which is consistent with anaerobic abscesshence anaerobic infection.- s/p IR drain 12/07 at OSH + GBS/ GCS/ Prevotella Oralis- WBC is 14.7- Urine toxicology is positive for opiates- IR drained the abscess, on pleurevac drain, possible removal tomorrow.- Abscess culture is positive for moderate mixed anaerobic lavelle- stop vancomycin and continue Unasyn per ID (high vancomycin trough)through PICC line- Continue antibiotics until 01/25- MRSA nares is negative. Gastrointestinal GERD (gastroesophageal reflux disease) 02/06/2015 - Present Current Assessment AND Plan - Continue home PPI Severe protein-calorie malnutrition (HCC) 12/24/2017 - Present Current Assessment AND Plan Nephrology SHARI (acute kidney injury) ([facility]) 12/27/2017 - Present Current Assessment AND Plan- Cr today 2.58 (0.8 his baseline)- SHARI stage 3- Nephrology consulted, we appreciate reccomendations.- FeNA is <1 consistant with pre-renal, contrast-induced nephrotoxicity,GN or antibiotic Induced- Renal US didn't show any obstruction- UPCR is 0.3- urine eosinophiles are negative- CK is within normal, not duo to rhabdomyolisis- Adjust zosyn, lithium dose according to Cr clearance- Recevied 1 L IV bolus and on 100 ml/h 0.45% NaCl, no need for urgentdialysis- Most likely Contrast- induced injury.- Polyuria today most probably from ATN recovery/Li induce- Change Eliquis to heparin for possible renal biopsy if there is noimprovement Hematology Thrombocytosis (HCC) 12/24/2017 - Present Leukocytosis 12/24/2017 - Present Current Assessment AND Plan - Likely secondary to lung abscess. Macrocytic anemia 12/24/2017 - Present Current Assessment AND Plan - Likely due to alcohol abuse. Infectious Disease Mediastinal lymphadenopathy 12/24/2017 - Present Current Assessment AND Plan - Likely reactive from infection. Psychiatry Anxiety 02/13/2014 - Present Current Assessment AND Plan - Continue with Propanolol Alcohol abuse 03/17/2015 - Present Current Assessment AND Plan - Patient denied alcohol abuse.- CIWA will be implemented. Bipolar 1 disorder (HCC) 12/24/2017 - Present Current Assessment AND Plan - rechecked Li level is 1.1- will restart lithium 600 mg- not likely the cause of SHARI accourding to nephrology- Continue other home medications Other Obesity, Class I, BMI 30-34.9 12/23/2017 - Present Current Assessment AND Plan - Counseled- will be followed up by PCP Unintentional weight loss 12/24/2017 - Present Current Assessment AND Plan - See plan for diarrhea as above.Medication and Non-Pharmacologic VTE Prophylaxis/AnticoagulantsAnti coagulant AND Antiplatelet Medications Start Dose Route Frequency Ordered Stop 12/28/17 1600 heparin iv infusion (STANDARD NOMOGRAM) 25,000 units inNaCl 0.45% 250 mL PREMIX (Heparin Infusion + Rate Change Bolus) 0-30mL/hr 0-3,000 Units/hr INTRAVENOUS CONTINUOUS 12/28/17 1534 --12/23/17 2300 vte pharmacologic prophylaxis contraindicated (ct,pa)12/23/17 2300 activity - mobilize patient ([place])VTE Prophylaxis: VTE prophylaxis appropriatePlan of care discussed with: AttendingSIGNATURE: Malik Morales MD PATIENT NAME: Soraya BowserDATE: December 31, 2017 : 2:37 PM PAGER/CONTACT #: [phone] to my serviceChart reviewedEvaluated independentlyDiscussed with Dr. Morales and agree with above notes which reflect myinput with following additionsClaims feeling better No chest pain or shortness of breathVitals stableExam is unremarkableDrain is draining lessLabs notedDiscussed with patient regarding condition and planAttestation signed byLEO Crews AttendingAugust 201710:26 PM Normal [facility] Protein mass conc HNO ID: [id number] thor: Francois Awade: NephrologyAuthor Type: PhysicianType: Progress NotesFiled: 12/31/2017 11:38 AMNote Text:Nephrology Progress NoteFollowing for SHARI.Pt denies SOB at rest. No current CP.Creatinine 2.5Current Inpatient Medications:Current Facility-Administered Medications Ordered in Epic:lithium carbonate 600 mg cap(s) (ESKALITH) 600 mg ORAL AT BEDTIME Arrvind(Res) Raghunath 600 mg at 12/30/17 2148NaCl 0.45% iv infusion 100 mL/hr INTRAVENOUS CONTINUOUS Blu Zendejas Rate: 100 mL/hr at 12/30/17 2303 100 mL/hr at 12/30/17 2303piperacillin-tazobactam 3.375 g in dextrose (iso-osmotic) 50 mL (ZOSYN)3.375 g INTRAVENOUS q 8 H Arrvind (Res) Raghunath Last Rate: 100 mL/hr at12/31/17 0527 3.375 g at 12/31/17 0527heparin iv infusion (STANDARD NOMOGRAM) 25,000 units in NaCl 0.45% 250 mLPREMIX 0-3,000 Units/hr INTRAVENOUS CONTINUOUS Olimpia (Res) Kanferny LastRate: 22 mL/hr at 12/31/17 0655 2,200 Units/hr at 12/31/17 0655Andheparin RATE CHANGE bolus 1,000-10,000 Units for subtherapeutic apttresults 1,000-10,000 Units INTRAVENOUS PRN Olimpia (Res) Kann 8,200 Unitsat 12/31/17 0646traZODone 150 mg tab(s) (DESYREL) 150 mg ORAL AT BEDTIME Arrvind (Res)Raghunath 150 mg at 12/30/17 2146oxyCODONE-acetaminophen 5-325 mg 1-2 tablet (PERCOCET) 1-2 tablet ORAL q 6H PRN Franklin Neely 2 tablet at 12/31/17 0527QUEtiapine 100 mg tab(s) (SEROquel) 100 mg ORAL AT BEDTIME Arrvind (Res)Raghunath 100 mg at 12/30/17 97726.9% NaCl 10 mL 10 mL INTRAVENOUS q 12 H Mayuri (Wood Block Artist) Hilliard 10 mL at12/30/17 83367.9% NaCl 20 mL 20 mL INTRAVENOUS PRN Mayuri (Wood Block Artist) Markleacetaminophen 650 mg tab(s) (TYLENOL) 650 mg ORAL q 6 H PRN Malik (Res)MD Carmen 650 mg at 12/27/17 0900prenatal vitamin with folic acid 1 mg 1 tablet 1 tablet ORAL DAILY Yashu(Res) Dhamija 1 tablet at 12/31/17 0821thiamine 100 mg tab(s) (VITAMIN B1) 100 mg ORAL TID Yashu (Res) Egsyiqn883 mg at 12/31/17 0821iv contrast (radiology procedure) INTRAVENOUS DIRECTED PRN Yashu (Res)Dhamijacodeine-guaiFENesi n 5 mL oral liquid (ROBITUSSIN AC) 5 mL ORAL q 6 H PRNCarrie Juan Ramon Watto 5 mL at 12/25/17 1329benztropine 0.5 mg tab(s) (COGENTIN) 0.5 mg ORAL BID Yashu (Res) Dhamija0.5 mg at 12/31/17 0821propranolol 20 mg tab(s) (INDERAL) 20 mg ORAL BID Yashu (Res) Dhamija 20mg at 12/31/17 0821venlafaxine ER 150 mg cap(s) (EFFEXOR XR) 150 mg ORAL DAILY Yashu (Res)Dhamija 150 mg at 12/31/17 57755.9% NaCl 3-5 mL 3-5 mL INTRAVENOUS q 12 H Yashu (Res) Dhamija 5 mL at12/28/[address] 40 mg tab(s) (PROTONIX) 40 mg ORAL DAILY (6 AM) Jeremie Lira 40 mg at 12/31/17 0532No current [facility]-ordered outpatient prescriptions on file.Vitals:BP 134/84 Pulse 72 Temp 36.8 ?C (98.2 ?F) (Oral) Resp 18 Ht177.8 cm (5' 10 ) Wt 101.7 kg (224 lb 3.3 oz) SpO2 96% BMI 32.17kg/m?BLOOD PRESSURE RANGE: Systolic (24hrs), Av , Min:121 , Max:133; Diastolic (24hrs), Av, Min:71, Max:7624HR INTAKE/OUTPUT:Intake/Output Summary (Last 24 hours) at 12/31/17 1059Last data filed at 12/31/17 0510 Gross per 24 hourIntake 3790 mlOutput 4063 mlNet -273 mlPhysical exam:Constitutional: NADSkin: no rash, turgor wnlHeent: eomi, mmmNeck: no bruits or jvd notedCardiovascular: S1, S2 normalRespiratory: CTABAbdomen: +bs, soft, nt, ndExt: no lower extremity edemaData:Labs:Glucose (mg/dL)Date Value12/31/2017 78 Potassium (mEq/L)Date Value12/31/2017 3.6 Sodium (mEq/L)Date 12/31/2017 143 Chloride (mEq/L)Date 12/31/2017 113 CO2 (mEq/L)Date 12/31/2017 24 Creatinine (mg/dL)Date 12/31/2017 2.58 BUN (mg/dL)Date 12/31/2017 16 Anion Gap (no units)Date 12/31/2017 10 Calcium (mg/dL)Date 12/31/2017 8.3 Recent Labs 12/31/1803WBC 14.75* 15.06* 20.19*HB 10.3* 10.5* 10.4*HCT 31.0* 32.7* 31.3*MCV 102.0* 103.5* 102.6*PLT 442* 478* 507*Recent Labs 12/31/1803NA 143 141 139K 3.6 3.6 3.6CO2 24 23 22BUN 16 17 17CREAT 2.58* 2.78* 3.00*CA 8.3* 8.4* 8.2*Assessment and Plan1. Acute kidney injury.?Normal baseline renal function. SCr was 0.82 mg/dLon 12/25/17.Most likely cause of of SHARI is ATN now down from 3--->2.5Renal function is continuing to slowly improve. There is no obstruction seen on recent CT scan.Agree with continuing IVF. Continue to encourage oral intake.No need for LUSTER REPAIRER.Avoid further IV contrast. Avoid NSAID.?2- Polyuria most probably from ATN recovery/Li induce NDI- ElectrolytesokayChange IVF to 1 NS 1:1 replacement?3. Lung abscess. s/p CT drainage. Antibiotic as per ID. Agree withadjustment of Zosyn for SHARI. Current dose of Zosyn is acceptable.?4. Bipolar disorder.I will hold to restart lithium?Francois Wilhelm MD [facility] Protein mass conc HNO ID: [id number] thor: Dragan Maciaservice: Thoracic SurgeryAuthor Type: PhysicianType: Progress NotesFiled: 12/31/2017 10:19 AMNote Text:Thoracic Surgery Progress NoteSERVICE DATE: 12/31/2017Vascular AND Thoracic Surgery Service Pager:For questions or concerns Mon-Fri 6a-5p please page [phone].After 5pm and on Weekends and Holidays, please page [phone] if in ICU or [phone] on RNF.SubjectiveSUBJECTIVE:Right chest pain, mild DOEDiet: DIET REGULARObjectiveOBJECTIVE:Tuyet ls:Temp (24hrs), Av.7 ?C (98.1 ?F), Min:36.3 ?C (97.3 ?F), Max:37 ?C(98.6 ?F)BP 134/84 Pulse 72 Temp 36.8 ?C (98.2 ?F) (Oral) Resp 18 Ht177.8 cm (5' 10 ) Wt 102.4 kg (225 lb 12.8 oz) SpO2 96% BMI 32.40kg/m?O2 Therapy: Room AirIANDO:Date 12/30/17 07 - 12/31/17 0659 12/31/17 07 - 01/01/18 0659Shift 6568-5524 4363-1527 1249-1090 24 Hour Total 9797-6622 3674-30648838-7541 24 Hour TotalINTAKE PO 780 474 119 1570 PO 780 567 361 6794 IV 966 307 2156 NS 0.9% 900 900 NS .45% 900 900 Zosyn IV 50 50 100 Shift Total 3405 921 3248 3790OUTPUT Urine 725 1650 1600 3975 Void (ml) 725 1650 1600 3975 Tubes 54 34 88 Drain/Tube Output (Drain/Tube 12/25/17 1321 Pigtail Right Medial ChestDrain #1) 54 34 88 Shift Total 725 1704 1634 4063Weight (kg) 102.4 102.4 102.4 102.4 102.4 102.4 102.4 102.4MEDICATIONSCurrent Facility-Administered Medications:lithium carbonate 600 mg cap(s) (ESKALITH) 600 mg ORAL AT BEDTIMENaCl 0.45% iv infusion 100 mL/hr INTRAVENOUS CONTINUOUSpiperacillin-tazobac hayes 3.375 g in dextrose (iso-osmotic) 50 mL (ZOSYN)3.375 g INTRAVENOUS q 8 Hheparin iv infusion (STANDARD NOMOGRAM) 25,000 units in NaCl 0.45% 250 mLPREMIX 0-3,000 Units/hr INTRAVENOUS CONTINUOUSAndheparin RATE CHANGE bolus 1,000-10,000 Units for subtherapeutic apttresults 1,000-10,000 Units INTRAVENOUS PRNtraZODone 150 mg tab(s) (DESYREL) 150 mg ORAL AT BEDTIMEoxyCODONE-acetaminophen 5-325 mg 1-2 tablet (PERCOCET) 1-2 tablet ORAL q 6H PRNQUEtiapine 100 mg tab(s) (SEROquel) 100 mg ORAL AT BEDTIME0.9% NaCl 10 mL 10 mL INTRAVENOUS q 12 H0.9% NaCl 20 mL 20 mL INTRAVENOUS PRNacetaminophen 650 mg tab(s) (TYLENOL) 650 mg ORAL q 6 H PRNprenatal vitamin with folic acid 1 mg 1 tablet 1 tablet ORAL DAILYthiamine 100 mg tab(s) (VITAMIN B1) 100 mg ORAL TIDiv contrast (radiology procedure) INTRAVENOUS DIRECTED PRNcodeine-guaiFENesin 5 mL oral liquid (ROBITUSSIN AC) 5 mL ORAL q 6 H PRNbenztropine 0.5 mg tab(s) (COGENTIN) 0.5 mg ORAL BIDpropranolol 20 mg tab(s) (INDERAL) 20 mg ORAL BIDvenlafaxine ER 150 mg cap(s) (EFFEXOR XR) 150 mg ORAL DAILY0.9% NaCl 3-5 mL 3-5 mL INTRAVENOUS q [address] 40 mg tab(s) (PROTONIX) 40 mg ORAL DAILY (6 AM)Labs:Recent Labs 12/31/1803NA 143 141 < > --K 3.6 3.6 < > --CHLOR 113* 112* < > --CO2 24 23 < > --BUN 16 17 < > --CREAT 2.58* 2.78* < > --GLUC 78 75 < > --ANION 10 10 < > --CA 8.3* 8.4* < > --WBC 14.75* 15.06* < > 19.85*HB 10.3* 10.5* < > 11.0*HCT 31.0* 32.7* < > 33.3*PLT 442* 478* < > 538*INR -- -- -- 0.92< > = values in this interval not displayed.Exam:GENERAL: No distress, AlertNEURO: AANDOx3, CN II-XII grossly intactHEENT: normocephalic, atraumaticLUNGS: Unlabored breathing O2 Therapy: Room Air, Right CT -20sxn, SSoutput, no leakCARDIAC: Regular rate and rhythm as aboveABDOMEN: Soft, non-tender, non-distendedEXTREMITIES: LOPEZ, No deformities, No edemaSKIN: Skin color, texture, turgor normal, No rashes or lesionsASSESSMENT AND PLAN:Active Hospital Problems Diagnosis Date Noted- Lung abscess ([facility]) 12/23/2017 Priority: A Chronic- SHARI (acute kidney injury) ([facility]) 12/27/2017 Priority: B- Pulmonary embolism, bilateral ([facility]) 12/24/2017 Priority: B Chronic- Bipolar 1 disorder ([facility]) 12/24/2017- Elevated blood pressure reading 12/24/2017- Unintentional weight loss 12/24/2017- Mediastinal lymphadenopathy 12/24/2017- Thrombocytosis ([facility]) 12/24/2017- Leukocytosis 12/24/2017- Macrocytic anemia 12/24/2017- Severe protein-calorie malnutrition ([facility]) 12/24/2017- Obesity, Class I, BMI 30-34.9 12/23/2017 Chronic- Alcohol abuse 03/17/2015- GERD (gastroesophageal reflux disease) 02/06/2015- Anxiety 02/13/201452 year old male with recurrent R lung abscess s/p IR Chest tube and tPAx2?- management per primary- Zosyn per ID- Cont R CT to -20 sxn- Hep drip for hx PEs --> ok to transition back to Eliquis from ThoracicstandpointAssessment and plan discussed with attending: Dr. JohnsonATURE: Fran Kunz MD PATIENT NAME: Soraya Avilez: December 31, 2017 : 6:59 Nuvia Grant seen, cxr reviewed, and case and careplan d/w resident.P-no tpa today, continue drain on suction, and OK for medicine to switchto (reduced dose?)Eliquis.Vascular AND Thoracic Surgery Service Pager:For questions or concerns Tue-Tue 6a-5p please page [phone].After 5pm and on Weekends and Holidays, please page [phone] if in ICU or [phone] on RNF. Normal [facility] Activated PTTon 12-30-2017 aPTT Coag time (Bld) 53.6 s High 22.0-34.0 [facility] Comment on above: Performed By: #### T ROP ####[place] [address] Basic Panelon 12-30-2017 Creatinine mass conc 2.78 mg/dL High 0.67-1.17 [facility] Comment on above: Performed By: #### T ROP ####[place] [address] Anion gap 3 molar conc 10 mmol/L Normal 8-16 [facility] Comment on above: Performed By: #### T ROP ####[place] [address] CO2 molar conc 23 mmol/L Normal 21-32 [facility] Comment on above: Performed By: #### T ROP ####[place] [address] Glucose mass conc 75 mg/dL Normal 70-99 [facility] Comment on above: Performed By: #### T ROP ####[place] [address] Urea nitrogen mass conc 17 mg/dL Normal 7-18 [facility] Comment on above: Performed By: #### T ROP ####[place] [address] Calcium mass conc 8.4 mg/dL Low 8.5-10.1 [facility] Comment on above: Performed By: #### T ROP ####[facility] [place], [place] [address] Chloride molar conc 112 mmol/L High 98-107 [facility] Comment on above: Performed By: #### T ROP ####[facility] [place], [place] [address] Potassium molar conc 3.6 mmol/L Normal 3.5-5.1 [facility] Comment on above: Performed By: #### T ROP ####[facility] [place], [place] [address] Sodium molar conc 141 mmol/L Normal 136-145 [facility] Comment on above: Performed By: #### T ROP ####[facility] [place] [address] CASE MANAGEMon 12-30-2017 CASE MANAGEM HNO ID: [id number] thor: Kaila (Rn) VALARIE Sarmientoervice: Care ManagementAuthor Type: Registered NurseType: Care Mgt Progress NoteFiled: 12/30/2017 12:27 PMNote Text:CARE MANAGEMENT PROGRESS NOTESERVICE DATE: 12/30/2017SERVICE TIME: 12:25 PM LOS: 7 daysNeeds Prior to Discharge: Discharge Transportation;Home Care Order;IVAntibiotics;Pharmacy Bedside DeliveryNotes reviewed. Current plan is for patient to return home with HC whenmedically stable. VNS following for needs.SIGNATURE: Kaila Sarmiento RN PATIENT NAME: Soraya BowserDATE: December 30, 2017 : 12:25 PM PAGER/CONTACT #: [phone] Normal [facility] CHEST 1 VIEWon 12-30-2017 Protein mass conc Performed at [facility] APPROVED BY: Ramon Rosenthal MD EXAM TITLE: CHEST 1 VIEW DATE: 12/30/2017 06:26 INDICATION: Follow-up drainage of right-sided pleural fluid collection. COMPARISON: 12/29/2017 at 07 30 Portable frontal view of the chest shows pigtail catheter overlying the superior lateral aspect right chest. Persistent right-sided pleural fluid/pleural thickening/atelectasis and or consolidation in the right lung. Stable. Left lung is clear. Heart size is normal. Left-sided PICC line with tip in the midsuperior vena cava. IMPRESSION: Stable appearance of the chest. Normal [facility] CONSULT PROGon 12-30-2017 Protein mass conc HNO ID: [id number] thor: Trang Grossmanervice: Infectious DiseaseAuthor Type: PhysicianType: Consult Progress NoteFiled: 12/30/2017 1:55 PMNote Text:INFECTIOUS DISEASE PROGRESS NOTEPatient Name: Soraya Bowser HISTORY:R pleurex drain output noted. Plans for repeat tPA again todayCT chest shows improvements. Stable on room air. Dyspnea improvingLeukcytosis now trending down 15.06 (20.19)Denies f/c/n/v. + some diarrhea, not frequentASSESSMENT:1. Sepsis 2/ # 22. Right Upper Lobe Loculated Lung Abscess -- s/p IR drain 12/07 at OSH + GBS/ GCS/ Prevotella Oralis -- s/p [facility] - cx: ngtd -- likely aspiration related v/s complicated community acquired pna3. Leukocytosis4. Fever/ Chills5. Dyspnea/ Chest Pain due to #26. Ac on Chronic Anemia7. SHARI ? Etiology. Urine eos neg.PLAN:Keep zosyn - likely iv abx till 01/25/18F/U Final abscess CulturesFollow clinicallyMEDICATIONS: reviewed.Current hospital medications:piperacillin-tazob actam 3.375 g in dextrose (iso-osmotic) 50 mL (ZOSYN)3.375 g INTRAVENOUS q 8 Hheparin iv infusion (STANDARD NOMOGRAM) 25,000 units in NaCl 0.45% 250 mLPREMIX 0-3,000 Units/hr INTRAVENOUS CONTINUOUSheparin RATE CHANGE bolus 1,000-10,000 Units for subtherapeutic apttresults 1,000-10,000 Units INTRAVENOUS PRNtraZODone 150 mg tab(s) (DESYREL) 150 mg ORAL AT BEDTIMEoxyCODONE-acetaminophen 5-325 mg 1-2 tablet (PERCOCET) 1-2 tablet ORAL q 6H PRNQUEtiapine 100 mg tab(s) (SEROquel) 100 mg ORAL AT BEDTIMENaCl 0.9% iv infusion 100 mL/hr INTRAVENOUS CONTINUOUS0.9% NaCl 10 mL 10 mL INTRAVENOUS q 12 H0.9% NaCl 20 mL 20 mL INTRAVENOUS PRNacetaminophen 650 mg tab(s) (TYLENOL) 650 mg ORAL q 6 H PRNprenatal vitamin with folic acid 1 mg 1 tablet 1 tablet ORAL DAILYthiamine 100 mg tab(s) (VITAMIN B1) 100 mg ORAL TIDiv contrast (radiology procedure) INTRAVENOUS DIRECTED PRNcodeine-guaiFENesin 5 mL oral liquid (ROBITUSSIN AC) 5 mL ORAL q 6 H PRNbenztropine 0.5 mg tab(s) (COGENTIN) 0.5 mg ORAL BIDpropranolol 20 mg tab(s) (INDERAL) 20 mg ORAL BIDvenlafaxine ER 150 mg cap(s) (EFFEXOR XR) 150 mg ORAL DAILY0.9% NaCl 3-5 mL 3-5 mL INTRAVENOUS q [address] 40 mg tab(s) (PROTONIX) 40 mg ORAL DAILY (6 AM)PHYSICAL EXAM:Vital signs: BP 132/78 Pulse 71 Temp 36.3 ?C (97.3 ?F) (Oral) Resp 18 Ht 177.8 cm (5' 10 ) Wt 102.4 kg (225 lb 12.8 oz) DbS667% BMI 32.40 kg/m?General: alert, oriented, NADLungs: R basilar crackles, diminished BS. R pleurex drain--> CTHeart: regular rate and rhythmAbdomen: soft, non tender, non distended, BS+Extremities: no swollen jointsSkin: no rashIV sites - L PICC site (12/27) site cleanLab data: reviewedRecent Labs 12/29/1802WBC 15.06* 20.19* 19.85* --HB 10.5* 10.4* 11.0* --PLT 478* 507* 538* --INR -- -- 0.92 --NA 141 139 -- 140K 3.6 3.6 -- 3.5CO2 23 22 -- 26BUN 17 17 -- 16CREAT 2.78* 3.00* -- 3.18*Microbiology data:12/25 Abscess cx: young growthMRSA nares negImaging data: reviewedCT chest: 12/29Marked improvement in the appearance of the right lung abscess afterpercutaneousdrainage.Impr oving lower lung zone infiltrates.Right-sided volume loss secondary to atelectasis.Continued mediastinal lymphadenopathy which is probably reactive innature.Iris Foreman CNPIndiana University Health Starke Hospitalryan Infectious Disease SpecialistsPager: [phone] 2017 10:54 AMThank you for the consult. We will continue to follow the patient withyou. Please call for any questions or concerns. Have seen and evaluatedthe patient. Agree with above unless otherwise noted.Trang Valle MD Normal [facility] Hemogramon 12-30-2017 Erythrocyte distribution width Auto Ratio (RBC) 13.9 % Normal 11.6-14.4 [facility] Comment on above: Performed By: #### T ROP ####[place] [address] Hematocrit Auto Volume Fraction (Bld) 32.7 % Low 40.1-51.0 [facility] Comment on above: Performed By: #### T ROP ####[place] [address] Hemoglobin mass conc (Bld) 10.5 g/dL Low 13.7-17.5 [facility] Comment on above: Performed By: #### T ROP ####[place] [address] MCH Auto Entitic mass (RBC) 33.2 pg High 25.7-32.2 [facility] Comment on above: Performed By: #### T ROP ####[place] [address] MCHC Auto mass conc (RBC) 32.1 % Low 32.3-36.5 [facility] Comment on above: Performed By: #### T ROP ####[place] [address] MCV Auto Entitic volume (RBC) 103.5 fL High 83.2-95.6 [facility] Comment on above: Performed By: #### T ROP ####[place] [address] Platelet mean volume Auto Entitic volume (Bld) 9.1 fL Normal 8.7-12.0 [facility] Comment on above: Performed By: #### T ROP ####[place] [address] Platelets Auto #/vol (Bld) 478 thou/cmm High 141-365 [facility] Comment on above: Performed By: #### T ROP ####[place] [address] RBC Auto #/vol (Bld) 3.16 mil/cmm Low 4.63-6.08 [facility] Comment on above: Performed By: #### T ROP ####[place] [address] RDW SD 53.3 fl High 36.1-45.8 [facility] Comment on above: Performed By: #### T ROP ####[place] [address] WBC Auto #/vol (Bld) 15.06 thou/cmm High 4.23-9.07 [facility] Comment on above: Performed By: #### T ROP ####[place] [address] Serumon 12-30-[address] Serum 0.8 mEq/L Normal 0.6-1.2 [facility] Comment on above: Performed By: #### T SH3 ####[place] [address] NURSING PROGon 12-30-2017 Protein mass conc HNO ID: [id number] thor: Summer (Rn) Zackery, VALARIEervice: NursingAuthor Type: Registered NurseType: Nursing Progress NoteFiled: 12/30/2017 2:47 AMNote Text:Spoke with Latyoa Res. with surgery regarding patient's minimal outputand patient's chest tube at -20 of suction but no order for patient'schest tube. Latoya stated to leave chest tube at -20 of suction thisshomar and MD's will address in AM. No other orders received. Will continueto monitor. Normal [facility] NUTRITIONon 12-30-2017 NUTRITION HNO ID: [id number] thor: Félix (Shiv) TraciekiKietice: Nutrition TherapyAuthor Type: Registered DietitianType: NutritionFiled: 12/30/2017 10:58 AMNote Text:NUTRITION THERAPY PROGRESS NOTESERVICE DATE: 12/30/2017SERVICE TIME: 10:20RECOMMENDED DIAGNOSIS: SEVERE PROTEIN-CALORIE MALNUTRITION per RegisteredDietitian on 12/24/17In the context of Social/Environmental Circumstance based on:Unintentional Weight Loss: >10% in 6 monthsInsufficient Energy Intake: less than or equal to 50% for greater than orequal to 1 monthNUTRITION CARE PLANProblem, Etiology and Signs/Symptoms:Suboptimal protein/energy intake related to feelings of depression?asevidenced by patient interview.Intervention:1. Encourage PO intake2. Continue Ensure Clear apple BID to provide 240 kcal and 8 gm proteinper servingMonitor and Evaluation:Goal: Meet >75% of estimated needsMonitor fluid/electrolyte balanceMonitor labs, I/Os, vital signs, weightDischarge Nutrition Recommendations:Diet: Diet: Regular Reason for Visit: Follow-up for severe malnutritionPer HPI: A 52 year old male was admitted from [facility]. He has cough,SOB and chest pain that started 2 weeks ago. He was treated for bilateralPE and had [id number] cm right upper lobe abscess drained. 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 Today patient presents with CP pleuritic in natureassociated with SOB, productive cough, fever, chills, and sweat. CXR andchest CT done at [facility] showed a 9x6, 4x9 loculated air fluid right upperlobe abscess.?Patient reports loss of appetite, fatigue and 14 poundsunintentional weight loss over a period of 1 month.Interval History: PICC line placed on 12/27. Nephrology is following forAKI. Per Care management, plan for discharge home once medically stable.Per resident note on 12/28 patient has been having mild right side chestpain. Per thoracic surgery on 12/29, patient had tpa administered throughchest tube.ACTIVE PROBLEM LISTPain in Joint, Shoulder RegionPain in Joint, Upper ArmImpingement Syndrome of Right ShoulderAnxietyCounseling and Coordination of CareCellulitis and Abscess of Unspecified SiteGerd (Gastroesophageal Reflux Disease)Alcohol AbuseChange in Bowel HabitHistory of Esophagogastroduodenoscopy (Egd)Obesity, Class I, Bmi 30-34.9Lung Abscess (Hcc)Bipolar 1 Disorder (Hcc)Elevated Blood Pressure ReadingUnintentional Weight LossMediastinal LymphadenopathyThrombocytosis (Hcc)LeukocytosisMacrocytic AnemiaPulmonary Embolism, Bilateral (Hcc)Severe Protein-Calorie Malnutrition (Hcc)Shari (Acute Kidney Injury) (Hcc)PAST MEDICAL HISTORYDiagnosis Date- Bipolar 1 disorder (HCC)- GERD (gastroesophageal reflux disease)- Left elbow pain- Shoulder pain, rightPAST SURGICAL HISTORYProcedure Laterality Date- PAST SURGICAL HISTORY OF Right 1998 right wrist debridement (s/p infection of pins from repair)- PICC LINE INSERTION (PICC TEAM) (AK) 12/27/2017Present Diet Order: RegularNutritional Intake: <75% estimated energy needs over the past 1-2 day(s).Patient reported that he really likes the Ensure Clear supplements. Hestated that his PO intake is hit or miss . He gets a tray of food infront of him and eats a few bites. Says that sometimes he eats all of hisfood and other times he doesn't feel like eating.Admission Weight: 100.3 kg (221 lb 1.9 oz)Current Weight: 102.4 kg (225 lb 12.8 oz)Body mass index is 32.4 kg/m?. class 1 obesityCurrent Facility-Administered Medications:piperacillin-tazob actam 3.375 g in dextrose (iso-osmotic) 50 mL (ZOSYN)3.375 g INTRAVENOUS q 8 Hheparin iv infusion (STANDARD NOMOGRAM) 25,000 units in NaCl 0.45% 250 mLPREMIX 0-3,000 Units/hr INTRAVENOUS CONTINUOUSAndheparin RATE CHANGE bolus 1,000-10,000 Units for subtherapeutic apttresults 1,000-10,000 Units INTRAVENOUS PRNtraZODone 150 mg tab(s) (DESYREL) 150 mg ORAL AT BEDTIMEoxyCODONE-acetaminophen 5-325 mg 1-2 tablet (PERCOCET) 1-2 tablet ORAL q 6H PRNQUEtiapine 100 mg tab(s) (SEROquel) 100 mg ORAL AT BEDTIMENaCl 0.9% iv infusion 100 mL/hr INTRAVENOUS CONTINUOUS0.9% NaCl 10 mL 10 mL INTRAVENOUS q 12 H0.9% NaCl 20 mL 20 mL INTRAVENOUS PRNacetaminophen 650 mg tab(s) (TYLENOL) 650 mg ORAL q 6 H PRNprenatal vitamin with folic acid 1 mg 1 tablet 1 tablet ORAL DAILYthiamine 100 mg tab(s) (VITAMIN B1) 100 mg ORAL TIDiv contrast (radiology procedure) INTRAVENOUS DIRECTED PRNcodeine-guaiFENesin 5 mL oral liquid (ROBITUSSIN AC) 5 mL ORAL q 6 H PRNbenztropine 0.5 mg tab(s) (COGENTIN) 0.5 mg ORAL BIDpropranolol 20 mg tab(s) (INDERAL) 20 mg ORAL BIDvenlafaxine ER 150 mg cap(s) (EFFEXOR XR) 150 mg ORAL DAILY0.9% NaCl 3-5 mL 3-5 mL INTRAVENOUS q [address] 40 mg tab(s) (PROTONIX) 40 mg ORAL DAILY (6 AM)Intake/Output 12/26/17 07 - 12/27/17 0659 12/27/17 07 - 12/28/17 0659 [id number] - 12/29/17 0659 12/29/17 07 - 12/30/17 0659 12/30/17 07 -12/31/17 0659 Intake (ml) 720 1820 540 640 0 Output (ml) 230 2347 1850 4895 0 Net (ml) [phone] 0MNT Billing Type: Re-assess/15 min 3 unitsSIGNATURE: F[address] PATIENT NAME: Soraya BowserDATE: December 30, 2017 : 8:40 AM PAGER: [phone] [facility] PROCEDUREon 12-30-2017 Protein mass conc HNO ID: [id number] thor: Tamela Lynne Res: Vascular SurgeryAuthor Type: ResidentType: ProceduresFiled: 12/30/2017 6:28 PMNote Text: Attes tation signed by Dragan Lombardo at 12/31/2017 8:48 AMAs discussed. TPA 50cc (10mg tpa)/Lidocaine 1% 15cc instilled into patient's R chesttube with stopcock turned. Pt tolerated well, no complications noted.Continue clamp for 2-3 hours, with position change every 15 minutes toimprove penetration of TPA into pleural space. Stopcock can be turnedafter this period of time and suction returned to previous level.Appropriate orders with instructions have been placed.Vascular AND Thoracic Surgery Service Pager:For questions or concerns Tue-Tue 6a-5p please page [phone].After 5pm and on Weekends and Holidays, please page [phone] if in ICU or [phone] on RNF.SIGNATURE: Wilfred Gamboa MD PATIENT NAME: Soraya Avilez: December 30, 2017 : 6:27 PM PAGER/CONTACT #: [phone] [facility] PROGRESSon 12-30-2017 Protein mass conc HNO ID: [id number] thor: Tamela Cardoza Res: Hospital MedicineAuthor Type: ResidentType: Progress NotesFiled: 12/30/2017 3:19 PMNote Text: Attes tation signed by Franklin Neely at 12/30/2017 10:38 PMI saw and evaluated the patient. I discussed the patient's case with theresident and agree with resident's findings and plan as documented in theresident's note. Pain controlled. Afebrile. No SOB. No N/V/D. No furtherhematuria.Patient Active Hospital Problem List: Lung abscess ([facility]) (12/23/2017) Pulmonary embolism, bilateral (HCC) (12/24/2017) SHARI (acute kidney injury) ([facility]) (12/27/2017) Anxiety (02/13/2014) GERD (gastroesophageal reflux disease) (02/06/2015) Alcohol abuse (03/17/2015) Obesity, Class I, BMI 30-34.9 (12/23/2017) Bipolar 1 disorder ([facility]) (12/24/2017) Elevated blood pressure reading (12/24/2017) Unintentional weight loss (12/24/2017) Mediastinal lymphadenopathy (12/24/2017) Thrombocytosis (HCC) (12/24/2017) Leukocytosis (12/24/2017) Macrocytic anemia (12/24/2017) Severe protein-calorie malnutrition ([facility]) (12/24/2017)Plan:?Restart lithium at lower dose.?ID following. On zosyn.?On heparin for recent PE.?F/u Cx.?Additional TPA per CTVS.PCP: Kiran French, [facility] 2017 10:36 PM SERVICE DATE: 12/30/2017SERVICE TIME: 3:18 PMHOSPITAL MEDICINE PROGRESS NOTENIGHT AND WEEKEND COVERAGE: From 7am - 7pm, please call [phone]: Covered by [id number] HPI: No ChangeToday the patient is doing well, he still complaining of mild right chestpain that is increased with movement. His cough is improving. No SOB.Afebrile. overnight he had decreased output from the drain. Thoracicsurgery will dp tPA from him today.OBJECTIVEBP 132/78 Pulse 71 Temp (Src) 97.3 (Oral) Resp 18 Ht 5' 10 (1.78m) Wt 225 lb 12.8 oz (102.4kg) SpO2 96% BMI 32.40 kg/(m2).Physical Exam Performed:GENERAL: GENERAL APPEARANCE NCCC: well appearing, alert and in no acutedistressHEART: HEART CCF: regular rate and rhythm, no murmer, gallop or rub,normal, S1, S2, no lifts, heaves, or thrills, PMI not displacedLUNGS: LUNGS CCF: clear to percussion and auscultation and no ralesABDOMEN: ABDOMEN: Soft, nontender, bowel sounds normal, no palpableorganomegaly, no bruits.EXTREMITY: EXTREMITY EXAM: Normal exam of the extremities. No clubbing,cyanosis, or edema.Lines, Drains, and Airways Line Central Line Single Lumen 12/27/17 1132 Peripherally Inserted (PICC) LeftArm Through Introducer 4.0 Somali 3 days Drain Drain/Tube 12/25/17 1321 Pigtail Right Medial Chest Drain #1 5 daysMedications: ReviewedDiagnostic tests reviewed:Most recent imagingRecent Labs 404 0 [id number] 15.06* 20.19* 19.85* < > 20.94*RBC 3.16* 3.05* 3.25* < > 3.26*HB 10.5* 10.4* 11.0* < > 11.1*HCT 32.7* 31.3* 33.3* < > 33.0*PLT 478* 507* 538* < > 394*MCV 103.5* 102.6* 102.5* < > 101.2*MCH 33.2* 34.1* 33.8* < > 34.0*MPV 9.1 8.9 9.0 < > 9.2RDW 13.9 13.7 13.5 < > 13.2METAMYELO -- -- -- -- 2.0< > = values in this interval not displayed.Recent Labs 12/30/1815GLUC 75 88 47* 71 92 < > 90 98NA 141 -- 139 140 135* < > 138 138K 3.6 -- 3.6 3.5 3.7 < > 3.6 3.4*CHLOR 112* -- 109* 109* 104 < > 107 103CO2 23 -- 22 26 28 < > 24 26CREAT 2.78* -- 3.00* 3.18* 3.36* < > 0.82 0.88BUN 17 -- 17 16 17 < > 4* 7ANION 10 -- 12 -- 7* < > -- 12CA 8.4* -- 8.2* 8.3* 8.8 < > 8.7 8.5TPROT -- -- -- -- -- -- -- 6.9ALB -- -- -- 1.7* -- -- 1.9* 2.3*TBILI -- -- -- -- -- -- -- 0.4ALKPHOS -- -- -- -- -- -- -- 170*AST -- -- -- -- -- -- -- 29ALT -- -- -- -- -- -- -- 46< > = values in this interval not displayed.Most recent labsCARE COORDINATION:No Patient Care Coordination Note on file.ASSESSMENT AND PLANAssessment AND Plan, all Hosp ProblemsActive Hospital Problems as of 12/30/2017 Noted - Resolved Cardiovascular Pulmonary embolism, bilateral (HCC) 12/24/2017 - Present Current Assessment AND Plan- UA analysis is positive for RBCs- today he denied any pinkish urine- Eliquis changed to heparin today for possible renal biopsy perNephrology. Elevated blood pressure reading 12/24/2017 - Present Current Assessment AND Plan - Continue to monitor BP- Suspect undiagnosed HTN Pulmonary * (Principal)Lung abscess (HCC) 12/23/2017 - Present Current Assessment AND Plan - CT chest shows change from [id number] to 9X6.4X9.4cm loculated airfluid thin walled abscess in the right upper lobe, associated withmediastinal lymphadenopathy, which is consistent with anaerobic abscesshence anaerobic infection.- s/p IR drain 12/07 at OSH + GBS/ GCS/ Prevotella Oralis- WBC is 20.1, if CBC still high repeat CT chest accourding thoracicsurgery- Urine toxicology is positive for opiates- IR drained the abscess, on pleurevac drain- Thoracic surgery will inject TPA gain to the tube today because of lowoutput overnight.- Abscess culture is positive for moderate mixed anaerobic lavelle- stop vancomycin and continue zosyn per ID (high vancomycin trough)through PICC line- Adjust zosyn dose according to renal function- Continue antibiotics until 01/25- MRSA nares is negative. Gastrointestinal GERD (gastroesophageal reflux disease) 02/06/2015 - Present Current Assessment AND Plan - Continue home PPI Severe protein-calorie malnutrition (HCC) 12/24/2017 - Present Current Assessment AND Plan Nephrology SHARI (acute kidney injury) ([facility]) 12/27/2017 - Present Current Assessment AND Plan- Cr today 2.78 (0.8 his baseline)- SHARI stage 3- Nephrology consulted, we appreciate reccomendations.- FeNA is <1 consistant with pre-renal, contrast-induced nephrotoxicity,GN or antibiotic Induced- Renal US didn't show any obstruction- UPCR is 0.3- urine eosinophiles are negative- CK is within normal, not duo to rhabdomyolisis- Adjust zosyn, lithium dose according to Cr clearance- Recevied 1 L IV bolus and on 100 ml/h 0.45% NaCl, no need for urgentdialysis- Most likely Contrast- induced injury.- Change Eliquis to heparin for possible renal biopsy if there is noimprovement Hematology Thrombocytosis (HCC) 12/24/2017 - Present Leukocytosis 12/24/2017 - Present Current Assessment AND Plan - Likely secondary to lung abscess. Macrocytic anemia 12/24/2017 - Present Current Assessment AND Plan - Likely due to alcohol abuse. Infectious Disease Mediastinal lymphadenopathy 12/24/2017 - Present Current Assessment AND Plan - Likely reactive from infection. Psychiatry Anxiety 02/13/2014 - Present Current Assessment AND Plan - Continue with Propanolol Alcohol abuse 03/17/2015 - Present Current Assessment AND Plan - Patient denied alcohol abuse.- CIWA will be implemented. Bipolar 1 disorder (HCC) 12/24/2017 - Present Current Assessment AND Plan - rechecked Li level is 1.1- will restart lithium 600 mg- not likely the cause of SHARI accourding to nephrology- Continue other home medications Other Obesity, Class I, BMI 30-34.9 12/23/2017 - Present Current Assessment AND Plan - Counseled- will be followed up by PCP Unintentional weight loss 12/24/2017 - Present Current Assessment AND Plan - See plan for diarrhea as above.Medication and Non-Pharmacologic VTE Prophylaxis/AnticoagulantsAnti coagulant AND Antiplatelet Medications Start Dose Route Frequency Ordered Stop 12/28/17 1600 heparin iv infusion (STANDARD NOMOGRAM) 25,000 units inNaCl 0.45% 250 mL PREMIX (Heparin Infusion + Rate Change Bolus) 0-30mL/hr 0-3,000 Units/hr INTRAVENOUS CONTINUOUS 12/28/17 1534 --12/23/17 2300 vte pharmacologic prophylaxis contraindicated ([place]12/23/17 2300 activity - mobilize patient ([place])VTE Prophylaxis: VTE prophylaxis appropriatePlan of care discussed with: AttendingSIGNATURE: Malik Morales MD PATIENT NAME: Soraya BowserDATE: December 30, 2017 : 3:18 PM PAGER/CONTACT #: [phone] [facility] Protein mass conc HNO ID: [id number] thor: SOMANY Zendejaservice: NephrologyAuthor Type: PhysicianType: Progress NotesFiled: 12/30/2017 1:38 PMNote Text:Nephrology Progress NoteFollowing for SHARI.Pt denies SOB at rest. No current CP.No nausea or vomiting.Current Inpatient Medications:Current Facility-Administered Medications Ordered in Epic:lithium carbonate 600 mg cap(s) (ESKALITH) 600 mg ORAL AT BEDTIME Arrvind(Res) Raghunathpiperacillin-tazobact am 3.375 g in dextrose (iso-osmotic) 50 mL (ZOSYN)3.375 g INTRAVENOUS q 8 H Arrvind (Res) Raghunath Last Rate: 100 mL/hr at12/30/17 1327 3.375 g at 12/30/17 1327heparin iv infusion (STANDARD NOMOGRAM) 25,000 units in NaCl 0.45% 250 mLPREMIX 0-3,000 Units/hr INTRAVENOUS CONTINUOUS Olimpia (Res) Kanferny LastRate: 20 mL/hr at 12/30/17 0642 2,000 Units/hr at 12/30/17 0642Andheparin RATE CHANGE bolus 1,000-10,000 Units for subtherapeutic apttresults 1,000-10,000 Units INTRAVENOUS PRN Olimpia (Res) Kann 4,000 Unitsat 12/29/17 0254traZODone 150 mg tab(s) (DESYREL) 150 mg ORAL AT BEDTIME Arrvind (Res)Raghunath 150 mg at 12/29/17 2112oxyCODONE-acetaminophen 5-325 mg 1-2 tablet (PERCOCET) 1-2 tablet ORAL q 6H PRN Franklin Neely 2 tablet at 12/29/17 1550QUEtiapine 100 mg tab(s) (SEROquel) 100 mg ORAL AT BEDTIME Arrvind (Res)Raghunath 100 mg at 12/29/17 2112NaCl 0.9% iv infusion 100 mL/hr INTRAVENOUS CONTINUOUS Arrvind (Res)Raghunath Last Rate: 100 mL/hr at 12/29/17 1549 100 mL/hr at 12/29/17 64626.9% NaCl 10 mL 10 mL INTRAVENOUS q 12 H Mayuri (Wood Block Artist) Slick 10 mL at12/30/17 06717.9% NaCl 20 mL 20 mL INTRAVENOUS PRN Mayuri (Wood Block Artist) Markleacetaminophen 650 mg tab(s) (TYLENOL) 650 mg ORAL q 6 H PRN Malik (Res)MD Carmen 650 mg at 12/27/17 0900prenatal vitamin with folic acid 1 mg 1 tablet 1 tablet ORAL DAILY Yajocelyneu(Res) Dhamija 1 tablet at 12/30/17 1014thiamine 100 mg tab(s) (VITAMIN B1) 100 mg ORAL TID Yashu (Res) Qpouwcb174 mg at 12/30/17 1327iv contrast (radiology procedure) INTRAVENOUS DIRECTED PRN Yashu (Res)Dhamijacodeine-guaiFENesi n 5 mL oral liquid (ROBITUSSIN AC) 5 mL ORAL q 6 H PRNCarrie Juan Ramon Mattie 5 mL at 12/25/17 1329benztropine 0.5 mg tab(s) (COGENTIN) 0.5 mg ORAL BID Yashu (Res) Dhamija0.5 mg at 12/30/17 1014propranolol 20 mg tab(s) (INDERAL) 20 mg ORAL BID Yashu (Res) Dhamija 20mg at 12/30/17 1014venlafaxine ER 150 mg cap(s) (EFFEXOR XR) 150 mg ORAL DAILY Yashu (Res)Dhamija 150 mg at 12/30/17 72392.9% NaCl 3-5 mL 3-5 mL INTRAVENOUS q 12 H Yashu (Res) Dhamija 5 mL at12/28/[address] 40 mg tab(s) (PROTONIX) 40 mg ORAL DAILY (6 AM) Jeremie JacobsenonWjaison 40 mg at 12/30/17 0637No current [facility]-ordered outpatient prescriptions on file.Vitals:BP 132/78 Pulse 71 Temp 36.3 ?C (97.3 ?F) (Oral) Resp 18 Ht177.8 cm (5' 10 ) Wt 102.4 kg (225 lb 12.8 oz) SpO2 96% BMI 32.40kg/m?BLOOD PRESSURE RANGE: Systolic (24hrs), Av , Min:121 , Max:133; Diastolic (24hrs), Av, Min:71, Max:7624HR INTAKE/OUTPUT:Intake/Output Summary (Last 24 hours) at 12/30/17 1334Last data filed at 12/30/17 0650 Gross per 24 hourIntake 640 mlOutput 4510 mlNet -3870 mlPhysical exam:Constitutional: NADSkin: no rash, turgor wnlHeent: eomi, mmmNeck: no bruits or jvd notedCardiovascular: S1, S2 normalRespiratory: CTABAbdomen: +bs, soft, nt, ndExt: no lower extremity edemaData:Labs:Recent Labs 08/10/570249 08/09/725431 08/08/569632HOO 15.06* 20.19* 19.85*HB 10.5* 10.4* 11.0*HCT 32.7* 31.3* 33.3*MCV 103.5* 102.6* 102.5*PLT 478* 507* 538*Recent Labs 12/29/1802NA 141 139 140K 3.6 3.6 3.5CO2 23 22 26BUN 17 17 16CREAT 2.78* 3.00* 3.18*CA 8.4* 8.2* 8.3*Assessment and Plan1. Acute kidney injury.?Normal baseline renal function. SCr was 0.82 mg/dLon 12/25/17.Most likely cause of of SHARI is ATNRenal function is continuing to slowly improve.I have low suspicion for other causes of SHARI. There is no obstruction seenon recent CT scan.Agree with continuing IVF. Continue to encourage oral intake.No need for LUSTER REPAIRER.Avoid further IV contrast. Avoid NSAID.?2- Polyuria most probably from ATN recovery. Electrolytes okayChange IVF to 1/2 NS?3. Lung abscess. s/p CT drainage. Antibiotic as per ID. Agree withadjustment of Zosyn for SHARI. Current dose of Zosyn is acceptable.?4. Bipolar disorder.OK to restart lithium if needed.?Renal team will continue to followAnastacia Chan MD Normal [facility] Protein mass conc HNO ID: [id number] thor: Suzie Blancas MsService: (none)Author Type: (none)Type: Progress NotesFiled: 01/02/2018 5:59 AMNote Text:Service Date: 12/30/2017Service Time: 9:07amHospital Medicine Progress NoteSubjectiveInterval HPI: No ChangeToday, patient was sitting up in chair on presentation and states that heis feeling much better today. He expressed some tenderness over his rightbreast where the drain is in place but that this is well controlled withhis pain medication. He also states that he has mild SOB of with exertionbut states that this has improved since admission and since yesterday(12/29). He has no further complaints at present.ObjectiveBP: 132/78mmHgPulse: 71 beats per minuteTemp: 97.3 FResp: 18 breaths per minuteSpO2 96% on room airPhysical Exam Performed:GENERAL: well appearing, alert and in no acute distressHEART: regular rate and rhythm, no murmer, gallop or rub, normal, S1, S2,no lifts, heaves, or thrills, PMI not displacedLUNGS: clear to percussion and auscultation and no rales, mild tendernessin the right side of the chest.ABDOMEN:Soft, nontender, bowel sounds normal, no palpable organomegaly, nobruits.EXTREMITY: Normal exam of the extremities. No clubbing, cyanosis, oredema.Line: Central line single lumen placed 12/27/17 - PICC line in Left Arm (2days)Drain: Drain/Tube placed 12/25/17 in Right Medial Chest (4 days)Medications:Recent Labs 404 0WBC 15.06* < > --HB 10.5* < > --HCT 32.7* < > --PLT 478* < > --NA 141 < > 140K 3.6 < > 3.5CHLOR 112* < > 109*CO2 23 < > 26CREAT 2.78* < > 3.18*BUN 17 < > 16GLUC 75 < > 71P -- -- 4.2ALB -- -- 1.7*CA 8.4* < > 8.3*< > = values in this interval not displayed.Assessment and Plan:1. Pulmonary Embolism- Patient has history of bilateral pulmonary emboli on December 10, 2017treated with heparin drip at [facility].- Continue heparin drip for possible renal biopsy per Nephrology.2. Lung Abscess:- Patient has history of right upper lobe lung abscess detected by CToriginally measuring [id number]. This was drained at [facility] andpatient represented with symptoms of increasing SOB and productive coughon 12/24/2017. Patient was treated with vancomycin and zosyn and thoracicsurgery placed a drain for the abscess.- Cultures from [facility] grew GBS/GCS/Prevotella Oralis, MRSAnegative.- Vancomycin d/c per ID due to high vancomycin trough.- IR drain placed and is intact on right chest.- WBC trending down from 20.1 to 15.- CT chest revealed increased aeration to the RUL of lung and decreasedatelectasis in lungs.- Thoracic surgery injected TPA to the drain tube on 12/29 and will plan todo again today.- Abscess cultures negative for 4 days.- Continue zosyn through 01/25, per ID.- Consult ID about antibiotic changes for future discharge.3. Essential HTN:- Suspect undiagnosed HTN.- Patient's blood pressure is being monitored and at present is stable andwithin normal limits.4. Bipolar 1 Disorder:- Patient has PMHx of Bipolar 1 Disorder treated with seroquel, lithium,venlafaxine, and trazadone.- Decreased Trazadone and Seroquel dose as patient was aspirating duringsleep and likely contributed to lung infection.- [address] level was 1.5 on 12/28 and therefore lithium was held.- Repeat lithium level was 1.1 on 12/29.- Restart lithium at 600mg once daily and repeat lithium level in 24 hoursfrom administration of drug. If lithium level greater than 1.2 holdmedication, if less than 1.2 continue medication as scheduled.5. SHARI:- Cr level increased to 3.8 on 12/26.- Nephrology consulted and suggest that this is likely secondary to IVcontrast exposure.- Zosyn level adjusted for kidney function.- FeNA is <1 consistant with pre-renal, contrast-induced nephrotoxicity,GN or antibiotic Induced- Renal US didn't show any obstruction- UPCR is 0.3- urine eosinophiles negative.- CK is within normal, not duo to rhabdomyolisis- Cr level down trending to 1.78 on 12/30.- Heparin drip in case nephrology would like a kidney biopsy.6. GI Prophylaxis- PPI prn.7. Diet- regular diet8. DVT prophylaxis- Heparin dripRrommel Blancas GI1Pycx: 12/30/17Time: 3:01pm Normal [facility] Protein mass conc HNO ID: [id number] thor: Dragan Maciaservice: Thoracic SurgeryAuthor Type: PhysicianType: Progress NotesFiled: 12/30/2017 9:29 AMNote Text:Thoracic Surgery Progress NoteSERVICE DATE: 12/30/2017SubjectiveSUBJECTIVE: NAEON.Denies N/V/CP/SOBDiet: DIET REGULARObjectiveOBJECTIVE:Tuyet ls:Temp (24hrs), Av.6 ?C (97.9 ?F), Min:36.3 ?C (97.3 ?F), Max:36.7 ?C(98.1 ?F)BP 132/78 Pulse 71 Temp 36.3 ?C (97.3 ?F) (Oral) Resp 18 Ht177.8 cm (5' 10 ) Wt 102.4 kg (225 lb 12.8 oz) SpO2 96% BMI 32.40kg/m?O2 Therapy: Room AirIANDO:Date 12/29/17699 - 12/30/17 0659 12/30/17 07 - 12/31/17 0659Shift 0541-1137 0251-3533 5207-0693 24 Hour Total 8617-2798 [id number] 24 Hour TotalINTAKE PO 240 350 590 PO 240 350 590 IV 50 50 Zosyn IV 50 50 Shift Total 240 400 640OUTPUT Urine 350 1000 3500 4850 Void (ml) 350 1000 3500 4850 Tubes 35 10 0 45 Drain/Tube Output (Drain/Tube 12/25/17 1321 Pigtail Right Medial ChestDrain #1) 35 10 0 45 Shift Total 385 1010 3500 4895Weight (kg) 102.1 102.1 102.4 102.4 102.4 102.4 102.4 102.4MEDICATIONSCurrent Facility-Administered Medications:piperacillin-tazob actam 3.375 g in dextrose (iso-osmotic) 50 mL (ZOSYN)3.375 g INTRAVENOUS q 8 Hheparin iv infusion (STANDARD NOMOGRAM) 25,000 units in NaCl 0.45% 250 mLPREMIX 0-3,000 Units/hr INTRAVENOUS CONTINUOUSAndheparin RATE CHANGE bolus 1,000-10,000 Units for subtherapeutic apttresults 1,000-10,000 Units INTRAVENOUS PRNtraZODone 150 mg tab(s) (DESYREL) 150 mg ORAL AT BEDTIMEoxyCODONE-acetaminophen 5-325 mg 1-2 tablet (PERCOCET) 1-2 tablet ORAL q 6H PRNQUEtiapine 100 mg tab(s) (SEROquel) 100 mg ORAL AT BEDTIMENaCl 0.9% iv infusion 100 mL/hr INTRAVENOUS CONTINUOUS0.9% NaCl 10 mL 10 mL INTRAVENOUS q 12 H0.9% NaCl 20 mL 20 mL INTRAVENOUS PRNacetaminophen 650 mg tab(s) (TYLENOL) 650 mg ORAL q 6 H PRNprenatal vitamin with folic acid 1 mg 1 tablet 1 tablet ORAL DAILYthiamine 100 mg tab(s) (VITAMIN B1) 100 mg ORAL TIDiv contrast (radiology procedure) INTRAVENOUS DIRECTED PRNcodeine-guaiFENesin 5 mL oral liquid (ROBITUSSIN AC) 5 mL ORAL q 6 H PRNbenztropine 0.5 mg tab(s) (COGENTIN) 0.5 mg ORAL BIDpropranolol 20 mg tab(s) (INDERAL) 20 mg ORAL BIDvenlafaxine ER 150 mg cap(s) (EFFEXOR XR) 150 mg ORAL DAILY0.9% NaCl 3-5 mL 3-5 mL INTRAVENOUS q [address] 40 mg tab(s) (PROTONIX) 40 mg ORAL DAILY (6 AM)Labs:Recent Labs 12/30/1815NA 141 -- 139 -- -- 140K 3.6 -- 3.6 -- -- 3.5CHLOR 112* -- 109* -- -- 109*CO2 23 -- 22 -- -- 26BUN 17 -- 17 -- -- 16CREAT 2.78* -- 3.00* -- -- 3.18*GLUC 75 88 47* -- -- 71ANION 10 -- 12 -- -- --CA 8.4* -- 8.2* -- -- 8.3*P -- -- -- -- -- 4.2ALB -- -- -- -- -- 1.7*WBC 15.06* -- 20.19* 19.85* < > --HB 10.5* -- 10.4* 11.0* < > --HCT 32.7* -- 31.3* 33.3* < > --PLT 478* -- 507* 538* < > --INR -- -- -- 0.92 -- --< > = values in this interval not displayed.Exam:GENERAL: No distress, AlertNEURO: AANDOx3, no focal deficitsHEENT: normocephalic, atraumaticLUNGS: Unlabored breathing O2 Therapy: Room AirCARDIAC: Regular rate and rhythm as aboveEXTREMITIES: LOPEZ, No deformities, No edemaSKIN: Skin color, texture, turgor normal, No rashes or lesionsASSESSMENT AND PLAN:Active Hospital Problems Diagnosis Date Noted- Lung abscess ([facility]) 12/23/2017 Priority: A Chronic- SHARI (acute kidney injury) ([facility]) 12/27/2017 Priority: B- Pulmonary embolism, bilateral ([facility]) 12/24/2017 Priority: B Chronic- Bipolar 1 disorder ([facility]) 12/24/2017- Elevated blood pressure reading 12/24/2017- Unintentional weight loss 12/24/2017- Mediastinal lymphadenopathy 12/24/2017- Thrombocytosis ([facility]) 12/24/2017- Leukocytosis 12/24/2017- Macrocytic anemia 12/24/2017- Severe protein-calorie malnutrition ([facility]) 12/24/2017- Obesity, Class I, BMI 30-34.9 12/23/2017 Chronic- Alcohol abuse 03/17/2015- GERD (gastroesophageal reflux disease) 02/06/2015- Anxiety [birth year]89 year old male with recurrent R lung abscess?- management per primary- chest CT 12/23 - 9.0 x 6.4 x 9.6 cm RUL lung abscess, RULatelectasis/fibrosis, mediastinal adenopathy- Repeat CT chest 12/29: Marked improvement in the appearance of the rightlung abscess after percutaneous drainage. Improving lower lung zoneinfiltrates. Right-sided volume loss secondary to atelectasis. Continuedmediastinal lymphadenopathy which is probably reactive in nature.- ID recs - cont vanc/zosyn- MRSA negative- IR drain placed with 10fr (12/25), originally on suction bulb, changed topleurevac 12/26.?- no airleak, 55 output. This likely represents actual output.Approx 60 mL was injected by tPA solution, pt has had approx 125 out totalsince then. - Will continue to monitor chest tube. - Will tPA tube again today with 10mg tPA in 50mL solution.- pulm recs- hx Pes on EliquisFor LahorraPatient seen and d/w residents. CT and cxr results reviewed with patient.P-strip tube and try one more dose of tpa today. Patient agreeable.Vascular AND Thoracic Surgery Service Pager:For questions or concerns Tue-Tue 6a-5p please page [phone].After 5pm and on Weekends and Holidays, please page [phone] if in ICU or [phone] on RNF.SIGNATURE: Wilfred Gamboa MD PATIENT NAME: Soraya BowserDATE: December 30, 2017 : 8:37 AM Pager: [phone] Normal [facility] Activated PTTon 12-29-2017 aPTT Coag time (Bld) 55.5 s High 22.0-34.0 [facility] Comment on above: Performed By: #### T ROP ####[place] [address] aPTT Coag time (Bld) 53.8 s High 22.0-34.0 [facility] Comment on above: Performed By: #### L AC ####[place] [address] aPTT Coag time (Bld) 46.0 s High 22.0-34.0 [facility] Comment on above: Result Comment: RESU LT RECHECKED Performed By: #### L AC ####[place] [address] Basic Panelon 12-29-2017 Glucose mass conc 47 mg/dL Critically low 70-99 [facility] Comment on above: Result Comment: RESU LT RECHECKED Performed By: #### L AC ####[address] [address] Creatinine mass conc 3.00 mg/dL High 0.67-1.17 [facility] Comment on above: Performed By: #### L AC ####[address] [address] Urea nitrogen mass conc 17 mg/dL Normal 7-18 [facility] Comment on above: Performed By: #### L AC ####[facility] [place] [address] Anion gap 3 molar conc 12 mmol/L Normal 8-16 [facility] Comment on above: Performed By: #### L AC ####[facility] [place], [place] [address] Calcium mass conc 8.2 mg/dL Low 8.5-10.1 [facility] Comment on above: Performed By: #### L AC ####[facility] [place] [address] CO2 molar conc 22 mmol/L Normal 21-32 [facility] Comment on above: Performed By: #### L AC ####[facility] [place] [address] Chloride molar conc 109 mmol/L High 98-107 [facility] Comment on above: Performed By: #### L AC ####[facility] [place] [address] Potassium molar conc 3.6 mmol/L Normal 3.5-5.1 [facility] Comment on above: Performed By: #### L AC ####[facility] [place] [address] Sodium molar conc 139 mmol/L Normal 136-145 [facility] Comment on above: Performed By: #### L AC ####[facility] [place] [address] CHEST 1 VIEWon 12-29-2017 Protein mass conc Performed at [facility] APPROVED BY: Ramon Rosenthal MD EXAM TITLE: CHEST 1 VIEW DATE: 12/29/2017 07:30 INDICATION: Patient history of right-sided chest abscess drainage catheter. COMPARISON: 12/28/2017 at 04 52. Portable frontal view of the chest shows right-sided chest tube overlying the lateral aspect right chest. Persistent diminished aeration in the right lung with right-sided pleural effusion and atelectasis and or consolidation which appears stable. Left lung is clear. Heart size is normal. Left-sided PICC line with tip in the midsuperior vena cava. IMPRESSION: Stable appearance of the chest. Normal [facility] CONSULT PROGon 12-29-2017 Protein mass conc HNO ID: [id number] thor: Tenzin MoealService: Infectious DiseaseAuthor Type: PhysicianType: Consult Progress NoteFiled: 12/29/2017 4:03 PMNote Text:INFECTIOUS DISEASE PROGRESS NOTEPatient Name: Soraya Bowser HISTORY:R pleur ex drain with increase output after tPA. Culture with young growthBreathing feels ok, remains on room air. + dyspnea with increase exertionDenies f/c/n/v/dLeukocytosis persistent 20.19 (19.8)ASSESSMENT:1. Sepsis 2/2 # 22. Right Upper Lobe Loculated Lung Abscess -- s/p IR drain 12/07 at OSH + GBS/ GCS/ Prevotella Oralis -- s/p [facility] - cx: ngtd -- likely aspiration related v/s complicated community acquired pna3. Leukocytosis4. Fever/ Chills5. Dyspnea/ Chest Pain due to #26. Ac on Chronic Anemia7. SHARI ? Etiology. Urine eos neg.PLAN:Keep zosyn - likely iv abx till 01/25/18F/U Final abscess Culturescheck CT chest in amMEDICATIONS: reviewed.Current hospital medications:piperacillin-tazob actam 3.375 g in dextrose (iso-osmotic) 50 mL (ZOSYN)3.375 g INTRAVENOUS q 8 Hheparin iv infusion (STANDARD NOMOGRAM) 25,000 units in NaCl 0.45% 250 mLPREMIX 0-3,000 Units/hr INTRAVENOUS CONTINUOUSheparin RATE CHANGE bolus 1,000-10,000 Units for subtherapeutic apttresults 1,000-10,000 Units INTRAVENOUS PRNtraZODone 150 mg tab(s) (DESYREL) 150 mg ORAL AT BEDTIMEoxyCODONE-acetaminophen 5-325 mg 1-2 tablet (PERCOCET) 1-2 tablet ORAL q 6H PRNQUEtiapine 100 mg tab(s) (SEROquel) 100 mg ORAL AT BEDTIMENaCl 0.9% iv infusion 100 mL/hr INTRAVENOUS CONTINUOUS0.9% NaCl 10 mL 10 mL INTRAVENOUS q 12 H0.9% NaCl 20 mL 20 mL INTRAVENOUS PRNacetaminophen 650 mg tab(s) (TYLENOL) 650 mg ORAL q 6 H PRNprenatal vitamin with folic acid 1 mg 1 tablet 1 tablet ORAL DAILYthiamine 100 mg tab(s) (VITAMIN B1) 100 mg ORAL TIDiv contrast (radiology procedure) INTRAVENOUS DIRECTED PRNcodeine-guaiFENesin 5 mL oral liquid (ROBITUSSIN AC) 5 mL ORAL q 6 H PRNbenztropine 0.5 mg tab(s) (COGENTIN) 0.5 mg ORAL BIDpropranolol 20 mg tab(s) (INDERAL) 20 mg ORAL BIDvenlafaxine ER 150 mg cap(s) (EFFEXOR XR) 150 mg ORAL DAILY0.9% NaCl 3-5 mL 3-5 mL INTRAVENOUS q [address] 40 mg tab(s) (PROTONIX) 40 mg ORAL DAILY (6 AM)PHYSICAL EXAM:Vital signs: BP 121/73 Pulse 74 Temp 36.5 ?C (97.7 ?F) (Oral) Resp 18 Ht 177.8 cm (5' 10 ) Wt 102.1 kg (225 lb 1.4 oz) SpO2 96% BMI 32.30 kg/m?General: alert, oriented, NADLungs: R basilar crackles, diminished BS. R chest drain--> CTHeart: regular rate and rhythmAbdomen: soft, non tender, non distended, BS+Extremities: no swollen jointsSkin: no rashIV sites - L PICC site (12/27)Lab data: reviewedRecent Labs 12/28/1816WBC 20.19* 19.85* -- -- 23.61*HB 10.4* 11.0* -- -- 11.1*PLT 507* 538* -- -- 478*INR -- 0.92 -- -- --NA 139 -- 140 135* 138K 3.6 -- 3.5 3.7 3.6CO2 22 -- 26 28 23BUN 17 -- 16 17 15CREAT 3.00* -- 3.18* 3.36* 3.03*Microbiology data:12/25 Abscess cx: shmuel de la cruz negImaging data: Santiago Borja Infectious Disease SpecialistsPager: [phone] 2017 2:37 PM++++++++++++++++++++++++++++ ++++++++++++++++++++++++++++++ +++++++++Above reflects my direct input except for changes as amended. Revieweddata independently.Tenzin Cantrell MD12/29/20174:03 PM Normal [facility] CT CHEST W/O CONTRASTon CT CHEST W/O CONTRAST Performed at [facility] APPROVED BY: Rafa Tadeo MD EXAMINATION: CHEST CT WITHOUT CONTRAST CLINICAL HISTORY: Abscess of lung or mediastinum Technique: Spiral CT acquisition of the chest from the thoracic inlet to the upper abdomen without contrast. MQ: [id number]: 0 mL IVCT Dose-Length Product: 304 mGy*cmCT Dose Reduction Employed: 3. mAs or kVp was manually adjusted based on either the patient size or age. Comparison: Comparison is made to an outside CT exam of the chest done 12/23/2017 RESULT: Limitations: None. Lines, tubes, and devices: Since the previous exam, there has been placement of a percutaneous pigtail drainage catheter into the right lung abscess. Left PICC line tip is in the superior vena cava. Lung parenchyma and pleura: Since the previous exam, the right upper lung zone abscess has contracted substantially. There is now some consolidation and atelectasis in that location. Reactive adjacent pleural thickening or some residual locular pleural fluid is present. There is right-sided volume loss from atelectasis. Since the previous exam, extensive centrilobular opacities thought to represent multifocal infection at the lower lung zones has improved. There are no new infiltrates. Thoracic inlet, heart, and mediastinum: Enlargement of multiple mediastinal lymph nodes has remained stable and these are likely reactive in nature. Heart is not enlarged. Bones and soft tissues: Small amount of subcutaneous emphysema is noted in the right pectoralis muscle that is likely secondary to catheter placement. Upper abdomen: No abnormality in the imaged upper abdomen. IMPRESSION: Marked improvement in the appearance of the right lung abscess after percutaneous drainage. Improving lower lung zone infiltrates. Right-sided volume loss secondary to atelectasis. Continued mediastinal lymphadenopathy which is probably reactive in nature. Normal [facility] Eosin Screen,Urineon 018 Eosin Screen,Urine 0 % Normal None seen [facility] Comment on above: Performed By: #### T ROP ####[place] [address] Glucose Bloodon 12-29-2017 Glucose mass conc 88 mg/dL Normal 70-99 [facility] Comment on above: Performed By: #### T ROP ####[place] [address] Hemogram/Diffon 12-29-2017 Abs Immature Grans 0.46 thou/cmm High 0.00-0.05 [facility] Comment on above: Performed By: #### L AC ####[place] [address] Abs. Baso 0.12 thou/cmm High 0.01-0.08 [facility] Comment on above: Performed By: #### L AC ####[place] [address] Abs. [place] 1.23 thou/cmm High 0.30-0.82 [facility] Comment on above: Performed By: #### L AC ####[place] [address] Abs. Neut (ANC) 14.98 thou/cmm High 1.78-5.38 [facility] Comment on above: Performed By: #### L AC ####[place] [address] Basophils/100 WBC Auto (Bld) 0.6 % Normal [facility] Comment on above: Performed By: #### L AC ####[place] [address] Eosinophils Auto #/vol (Bld) 0.69 thou/cmm High 0.04-0.54 [facility] Comment on above: Performed By: #### L AC ####[facility] [place], [place] [address] Eosinophils/100 WBC Auto (Bld) 3.4 % Normal [facility] Comment on above: Performed By: #### L AC ####[facility] [place], [place] [address] Immature Grans 2.30 % Normal [facility] Comment on above: Performed By: #### L AC ####[facility] [place], [place] [address] Lymphocytes Auto #/vol (Bld) 2.71 thou/cmm Normal 0.84-2.85 [facility] Comment on above: Performed By: #### L AC ####[address] [address] Lymphocytes/100 WBC Auto (Bld) 13.4 % Normal [facility] Comment on above: Performed By: #### L AC ####[address] [address] Monocytes/100 WBC Auto (Bld) 6.1 % Normal [facility] Comment on above: Performed By: #### L AC ####[address] [address] Seg Neutrophil 74.2 % Normal [facility] Comment on above: Performed By: #### L AC ####[address] [address] Erythrocyte distribution width Auto Ratio (RBC) 13.7 % Normal 11.6-14.4 [facility] Comment on above: Performed By: #### L AC ####[address] [address] Hematocrit Auto Volume Fraction (Bld) 31.3 % Low 40.1-51.0 [facility] Comment on above: Performed By: #### L AC ####[address] [address] Hemoglobin mass conc (Bld) 10.4 g/dL Low 13.7-17.5 [facility] Comment on above: Performed By: #### L AC ####[facility] [place] [address] MCH Auto Entitic mass (RBC) 34.1 pg High 25.7-32.2 [facility] Comment on above: Performed By: #### L AC ####[place] [address] MCHC Auto mass conc (RBC) 33.2 % Normal 32.3-36.5 [facility] Comment on above: Performed By: #### L AC ####[place] [address] MCV Auto Entitic volume (RBC) 102.6 fL High 83.2-95.6 [facility] Comment on above: Performed By: #### L AC ####[place] [address] Platelet mean volume Auto Entitic volume (Bld) 8.9 fL Normal 8.7-12.0 [facility] Comment on above: Performed By: #### L AC ####[place] [address] Platelets Auto #/vol (Bld) 507 thou/cmm High 141-365 [facility] Comment on above: Performed By: #### L AC ####[place] [address] RBC Auto #/vol (Bld) 3.05 mil/cmm Low 4.63-6.08 [facility] Comment on above: Performed By: #### L AC ####[place] [address] RDW SD 52.2 fl High 36.1-45.8 [facility] Comment on above: Performed By: #### L AC ####[place] [address] WBC Auto #/vol (Bld) 20.19 thou/cmm High 4.23-9.07 [facility] Comment on above: Performed By: #### L AC ####[place] [address] Serumon 08-09-[address] Serum 1.1 mEq/L Normal 0.6-1.2 [facility] Comment on above: Performed By: #### T ROP ####[place] [address] PROGRESSon 12-29-2017 Protein mass conc HNO ID: [id number] thor: Teddy Barbosa: NephrologyAuthor Type: PhysicianType: Progress NotesFiled: 12/29/2017 5:37 PMNote Text:Nephrology Progress NoteFollowing for SHARI.Pt denies SOB at rest. No current CP.No nausea or vomiting.Some loose BM.Current Inpatient Medications:Current Facility-Administered Medications Ordered in Epic:piperacillin-tazobactam 3.375 g in dextrose (iso-osmotic) 50 mL (ZOSYN)3.375 g INTRAVENOUS q 8 H Arrvind (Res) Raghunath Last Rate: 100 mL/hr at12/29/17 1550 3.375 g at 12/29/17 1550heparin iv infusion (STANDARD NOMOGRAM) 25,000 units in NaCl 0.45% 250 mLPREMIX 0-3,000 Units/hr INTRAVENOUS CONTINUOUS Olimpia (Res) Kann LastRate: 20 mL/hr at 12/29/17 0526 2,000 Units/hr at 12/29/17 0526Andheparin RATE CHANGE bolus 1,000-10,000 Units for subtherapeutic apttresults 1,000-10,000 Units INTRAVENOUS PRN Olimpia (Res) Kann 4,000 Unitsat 12/29/17 0254traZODone 150 mg tab(s) (DESYREL) 150 mg ORAL AT BEDTIME Arrvind (Res)Raghunath 150 mg at 12/28/17 2100oxyCODONE-acetaminophen 5-325 mg 1-2 tablet (PERCOCET) 1-2 tablet ORAL q 6H PRN Franklin Aldridge Neely 2 tablet at 12/29/17 1550QUEtiapine 100 mg tab(s) (SEROquel) 100 mg ORAL AT BEDTIME Arrvind (Res)Raghunath 100 mg at 12/28/17 2100NaCl 0.9% iv infusion 100 mL/hr INTRAVENOUS CONTINUOUS Arrvind (Res)Raghunath Last Rate: 100 mL/hr at 12/29/17 1549 100 mL/hr at 12/29/17 36303.9% NaCl 10 mL 10 mL INTRAVENOUS q 12 H Mayuri (Wood Block Artist) Hilliard 10 mL at12/29/17 86106.9% NaCl 20 mL 20 mL INTRAVENOUS PRN Mayuri (Wood Block Artist) Markleacetaminophen 650 mg tab(s) (TYLENOL) 650 mg ORAL q 6 H PRN Malik (Res)MD Carmen 650 mg at 12/27/17 0900prenatal vitamin with folic acid 1 mg 1 tablet 1 tablet ORAL DAILY Yashu(Res) Dhamija 1 tablet at 12/29/17 0813thiamine 100 mg tab(s) (VITAMIN B1) 100 mg ORAL TID Yashu (Res) Kkhecss236 mg at 12/29/17 1550iv contrast (radiology procedure) INTRAVENOUS DIRECTED PRN Yashu (Res)Dhamijacodeine-guaiFENesi n 5 mL oral liquid (ROBITUSSIN AC) 5 mL ORAL q 6 H PRNCjaida Lopezuso 5 mL at 12/25/17 1329benztropine 0.5 mg tab(s) (COGENTIN) 0.5 mg ORAL BID Yashu (Res) Dhamija0.5 mg at 12/29/17 0813propranolol 20 mg tab(s) (INDERAL) 20 mg ORAL BID Yashu (Res) Dhamija 20mg at 12/29/17 0813venlafaxine ER 150 mg cap(s) (EFFEXOR XR) 150 mg ORAL DAILY Yashu (Res)Dhamija 150 mg at 12/29/17 30209.9% NaCl 3-5 mL 3-5 mL INTRAVENOUS q 12 H Yashu (Res) Dhamija 5 mL at12/28/[address] 40 mg tab(s) (PROTONIX) 40 mg ORAL DAILY (6 AM) Jeremie Lira 40 mg at 12/29/17 0525No current [facility]-ordered outpatient prescriptions on file.Vitals:BP 121/73 Pulse 74 Temp 36.5 ?C (97.7 ?F) (Oral) Resp 18 Ht177.8 cm (5' 10 ) Wt 102.1 kg (225 lb 1.4 oz) SpO2 96% BMI 32.30kg/m?BLOOD PRESSURE RANGE: Systolic (24hrs), Av , Min:121 , Max:133; Diastolic (24hrs), Av, Min:71, Max:7624HR INTAKE/OUTPUT:Intake/Output Summary (Last 24 hours) at 12/29/17 1731Last data filed at 12/29/17 1500 Gross per 24 hourIntake 780 mlOutput 2545 mlNet -1765 mlPhysical exam:Constitutional: NADSkin: no rash, turgor wnlHeent: eomi, mmmNeck: no bruits or jvd notedCardiovascular: S1, S2 normalRespiratory: CTABAbdomen: +bs, soft, nt, ndExt: no lower extremity edemaData:Labs:Recent Labs 12/28/1816WBC 20.19* 19.85* 23.61*HB 10.4* 11.0* 11.1*HCT 31.3* 33.3* 32.5*MCV 102.6* 102.5* 99.7*PLT 507* 538* 478*Recent Labs 12/28/1802NA 139 140 135*K 3.6 3.5 3.7CO2 22 26 28BUN 17 16 17CREAT 3.00* 3.18* 3.36*CA 8.2* 8.3* 8.8Assessment and Plan1. Acute kidney injury.?Normal baseline renal function. SCr was 0.82 mg/dLon 12/25/17.Most likely cause of of SHARI at this point include:A) ATN which could be ischemic or nephrotoxic-pt did received IV contraston 12/24/17. There is no evidence of rhabdomyolysis.B) Antibiotic related AIN-Pt had been on beta lactam since 12/10. Lowersuspicion for this cause currently, urine eosinophils pending.C) Glomerulonephritis which can be related to ongoing infection (lungabscess)-FENa<1% can be consistent with this. However, complements arenormal. There is some proteinuria UPCR 0.3 g/g.D) [address] induced SHARI-Less likely. Suspect Li is high because of AKIrather than Li causing SHARI.Renal function is continuing to slowly improve. So, will hold off onkidney biopsy.I have low suspicion for other causes of SHARI. There is no obstruction seenon recent CT scan.Agree with continuing IVF. Continue to encourage oral intake.No need for LUSTER REPAIRER.Avoid further IV contrast. Avoid NSAID.?No change in treatment from my standpoint today. Most likely cause of AKIat this point would be ATN from IV contrast. This type of SHARI shouldstabilize and improve.?2. Lung abscess. s/p CT drainage. Antibiotic as per ID. Agree withadjustment of Zosyn for SHARI. Current dose of Zosyn is acceptable.?3. Bipolar disorder. Although I do not think the pt has SHARI from lithiuminduced AIN (see above).OK to restart lithium if needed.?4. PE. Pt had been on Eliquis. I would recommend IV heparin ifanticoagulation is to be restarted since we may need more invasive studiessuch as renal biopsy or catheter placement.Will d/w [facility].Please do not hesitate to contact me at [phone] if there is anyquestion or concern.Kali Teresa MD ([place]) [facility] Protein mass conc HNO ID: [id number] thor: Malik (Michael) OSMANY Moraleservice: [facility] MedicineAutbronson lake[facility] Type: ResidentType: Progress NotesFiled: 12/29/2017 3:03 PMNote Text: Attes tation signed by Franklin Neely at 12/30/2017 9:44 AMI saw and evaluated the patient on rounds on 12/29/17. I discussed the patient'scase with the resident and agree with resident's findings and plan asdocumented in the resident's note.?S: TPA to abscess 12/28. No f/c/n/v/sob. Urination OK. Some SOB on exertion.Pain under fair control.?O: VSS. WBC stable around 20. CR improving. Breathing unlabored. Clear onL. Minimal rhonchi on R. Drain in place on R chest.Patient Active Hospital Problem List: Lung abscess (HCC) (12/23/2017) Pulmonary embolism, bilateral (HCC) (12/24/2017) SHARI (acute kidney injury) (HCC) (12/27/2017) Anxiety (02/13/2014) GERD (gastroesophageal reflux disease) (02/06/2015) Alcohol abuse (03/17/2015) Obesity, Class I, BMI 30-34.9 (12/23/2017) Bipolar 1 disorder (HCC) (12/24/2017) Elevated blood pressure reading (12/24/2017) Unintentional weight loss (12/24/2017) Mediastinal lymphadenopathy (12/24/2017) Thrombocytosis (HCC) (12/24/2017) Leukocytosis (12/24/2017) Macrocytic anemia (12/24/2017) Severe protein-calorie malnutrition ([facility]) (12/24/2017)Plan:?Recheck lithium.?ID following. On zosyn.?On heparin for recent PE.?F/u Cx.?US of kidney today.PCP: Kiran French MD SERVICE DATE: 12/29/2017SERVICE TIME: 3:01 PMHOSPITAL MEDICINE PROGRESS NOTENIGHT AND WEEKEND COVERAGE: From 7am - 7pm, please call [phone]: Covered by 1044SUBJECTIVEInterval HPI: No ChangeToday the patient is doing well. Still complaining of 4/10 chest pain inthe right side, no cough or SOB, no blood in his urine. No acute eventsovernight.OBJECTIVEBP 121/73 Pulse 74 Temp (Src) 97.7 (Oral) Resp 18 Ht 5' 10 (1.78m) Wt 225 lb 1.4 oz (102.1kg) SpO2 96% BMI 32.30 kg/(m2).Physical Exam Performed:GENERAL: GENERAL APPEARANCE NCCC: well appearing, alert and in no acutedistressHEART: HEART CCF: regular rate and rhythm, no murmer, gallop or rub,normal, S1, S2, no lifts, heaves, or thrills, PMI not displacedLUNGS: LUNGS CCF: clear to percussion and auscultation and no rales, mildtenderness in the right side of the chest.ABDOMEN: ABDOMEN: Soft, nontender, bowel sounds normal, no palpableorganomegaly, no bruits.EXTREMITY: EXTREMITY EXAM: Normal exam of the extremities. No clubbing,cyanosis, or edema.Lines, Drains, and Airways Line Central Line Single Lumen 12/27/17 1132 Peripherally Inserted (PICC) LeftArm Through Introducer 4.0 Somali 2 days Drain Drain/Tube 12/25/17 1321 Pigtail Right Medial Chest Drain #1 4 daysMedications: ReviewedDiagnostic tests reviewed:Most recent imagingRecent Labs 12/28/1816WBC 20.19* 19.85* 23.61* < > 20.94*RBC 3.05* 3.25* 3.26* < > 3.26*HB 10.4* 11.0* 11.1* < > 11.1*HCT 31.3* 33.3* 32.5* < > 33.0*PLT 507* 538* 478* < > 394*MCV 102.6* 102.5* 99.7* < > 101.2*MCH 34.1* 33.8* 34.0* < > 34.0*MPV 8.9 9.0 9.2 < > 9.2RDW 13.7 13.5 13.5 < > 13.2METAMYELO -- -- -- -- 2.0< > = values in this interval not displayed.Recent Labs 12/28/1802GLUC 47* 71 92 76 90 98NA 139 140 135* 138 138 138K 3.6 3.5 3.7 3.6 3.6 3.4*CHLOR 109* 109* 104 106 107 103CO2 22 26 28 23 24 26CREAT 3.00* 3.18* 3.36* 3.03* 0.82 0.88BUN 17 16 17 15 4* 7ANION 12 -- 7* 13 -- 12CA 8.2* 8.3* 8.8 8.5 8.7 8.5TPROT -- -- -- -- -- 6.9ALB -- 1.7* -- -- 1.9* 2.3*TBILI -- -- -- -- -- 0.4ALKPHOS -- -- -- -- -- 170*AST -- -- -- -- -- 29ALT -- -- -- -- -- 46Most recent labsCARE COORDINATION:No Patient Care Coordination Note on file.ASSESSMENT AND PLANAssessment AND Plan, all Hosp ProblemsActive Hospital Problems as of 12/29/2017 Noted - Resolved Cardiovascular Pulmonary embolism, bilateral (HCC) 12/24/2017 - Present Current Assessment AND Plan- UA analysis is positive for RBCs- today he denied any pinkish urine- Eliquis changed to heparin today for possible renal biopsy perNephrology. Elevated blood pressure reading 12/24/2017 - Present Current Assessment AND Plan - Continue to monitor BP- Suspect undiagnosed HTN Pulmonary * (Principal)Lung abscess (HCC) 12/23/2017 - Present Current Assessment AND Plan - CT chest shows change from [id number] to 9X6.4X9.4cm loculated airfluid thin walled abscess in the right upper lobe, associated withmediastinal lymphadenopathy, which is consistent with anaerobic abscesshence anaerobic infection.- s/p IR drain 12/07 at OSH + GBS/ GCS/ Prevotella Oralis- WBC is 20.1, if CBC still high repeat CT chest accourding thoracicsurgery- Urine toxicology is positive for opiates- IR drained the abscess, on pleurevac drain- Thoracic surgery inject TPA to the tube today.- Abscess culture is negative for day 1, 2.- stop vancomycin and continue zosyn per ID (high vancomycin trough)through PICC line- Adjust zosyn dose according to renal function- Continue antibiotics until 01/25- MRSA nares is negative. Gastrointestinal GERD (gastroesophageal reflux disease) 02/06/2015 - Present Current Assessment AND Plan - Continue home PPI Severe protein-calorie malnutrition (HCC) 12/24/2017 - Present Current Assessment AND Plan Nephrology SHARI (acute kidney injury) ([facility]) 12/27/2017 - Present Current Assessment AND Plan- Cr today 3.1 (0.8 his baseline)- SHARI stage 3- Nephrology consulted, we appreciate reccomendations.- FeNA is <1 consistant with pre-renal, contrast-induced nephrotoxicity,GN or antibiotic Induced- Renal US didn't show any obstruction- UPCR is 0.3- urine eosinophiles are still pending- CK is within normal, not duo to rhabdomyolisis- Adjust zosyn, lithium dose according to Cr clearance- Recevied 1 L IV bolus and on 100 ml/h, no need for urgent dialysis- Change Eliquis to heparin for possible renal biopsy if there is noimprovement Hematology Thrombocytosis ([facility]) 12/24/2017 - Present Leukocytosis 12/24/2017 - Present Current Assessment AND Plan - Likely secondary to lung abscess. Macrocytic anemia 12/24/2017 - Present Current Assessment AND Plan - Likely due to alcohol abuse. Infectious Disease Mediastinal lymphadenopathy 12/24/2017 - Present Current Assessment AND Plan - Likely reactive from infection. Psychiatry Anxiety 02/13/2014 - Present Current Assessment AND Plan - Continue with Propanolol Alcohol abuse 03/17/2015 - Present Current Assessment AND Plan - Patient denied alcohol abuse.- CIWA will be implemented. Bipolar 1 disorder ([facility]) 12/24/2017 - Present Current Assessment AND Plan - Continue [address] , Trazodone and Seroquel and Venlafaxine. Other Obesity, Class I, BMI 30-34.9 12/23/2017 - Present Current Assessment AND Plan - Counseled- will be followed up by PCP Unintentional weight loss 12/24/2017 - Present Current Assessment AND Plan - See plan for diarrhea as above.Medication and Non-Pharmacologic VTE Prophylaxis/AnticoagulantsAnti coagulant AND Antiplatelet Medications Start Dose Route Frequency Ordered Stop 12/28/17 1600 heparin iv infusion (STANDARD NOMOGRAM) 25,000 units inNaCl 0.45% 250 mL PREMIX (Heparin Infusion + Rate Change Bolus) 0-30mL/hr 0-3,000 Units/hr INTRAVENOUS CONTINUOUS 12/28/17 1534 --12/23/17 2300 vte pharmacologic prophylaxis contraindicated (ct,oh)12/23/17 2300 activity - mobilize patient (ct,pa)VTE Prophylaxis: VTE prophylaxis appropriatePlan of care discussed with: AttendingSIGNATURE: Malik Morales MD PATIENT NAME: Soraya BowserDATE: December 29, 2017 : 3:01 PM PAGER/CONTACT #: [phone] [facility] Protein mass conc HNO ID: [id number] thor: Dragan Maciaservice: Thoracic SurgeryAuthor Type: PhysicianType: Progress NotesFiled: 12/29/2017 4:09 PMNote Text:Thoracic Surgery Progress NoteSERVICE DATE: 12/29/2017SubjectiveSUBJECTIVE:N AEON. Pt had tpa administered through chest tube, tolerated well. Feelsno better or worse today.Denies N/V/CP/SOBDiet: DIET REGULARObjectiveOBJECTIVE:Tuyet ls:Temp (24hrs), Av.8 ?C (98.2 ?F), Min:36.5 ?C (97.7 ?F), Max:37 ?C(98.6 ?F)BP 121/73 Pulse 74 Temp 36.5 ?C (97.7 ?F) (Oral) Resp 18 Ht177.8 cm (5' 10 ) Wt 102.1 kg (225 lb 1.4 oz) SpO2 96% BMI 32.30kg/m?O2 Therapy: Room AirIANDO:Date 12/28/17699 - 12/29/17 0659 12/29/17699 - 12/30/17 0659Shift 4679-3350 2303-4579 5168-9468 24 Hour Total 7220-4063 1487-11222898-3316 24 Hour TotalINTAKE PO 540 540 PO 540 540 Shift Total 540 540OUTPUT Urine 700 1150 1850 Void (ml) 700 1150 1850 Tubes 35 35 Drain/Tube Output (Drain/Tube 12/25/17 1321 Pigtail Right Medial ChestDrain #1) 35 35 Shift Total 700 1150 1850 35 35Weight (kg) 101 101 101 101 102.1 102.1 102.1 102.1MEDICATIONSCurrent Facility-Administered Medications:piperacillin-tazob actam 3.375 g in dextrose (iso-osmotic) 50 mL (ZOSYN)3.375 g INTRAVENOUS q 8 Hheparin iv infusion (STANDARD NOMOGRAM) 25,000 units in NaCl 0.45% 250 mLPREMIX 0-3,000 Units/hr INTRAVENOUS CONTINUOUSAndheparin RATE CHANGE bolus 1,000-10,000 Units for subtherapeutic apttresults 1,000-10,000 Units INTRAVENOUS PRNtraZODone 150 mg tab(s) (DESYREL) 150 mg ORAL AT BEDTIMEoxyCODONE-acetaminophen 5-325 mg 1-2 tablet (PERCOCET) 1-2 tablet ORAL q 6H PRNQUEtiapine 100 mg tab(s) (SEROquel) 100 mg ORAL AT BEDTIMENaCl 0.9% iv infusion 100 mL/hr INTRAVENOUS CONTINUOUS0.9% NaCl 10 mL 10 mL INTRAVENOUS q 12 H0.9% NaCl 20 mL 20 mL INTRAVENOUS PRNacetaminophen 650 mg tab(s) (TYLENOL) 650 mg ORAL q 6 H PRNprenatal vitamin with folic acid 1 mg 1 tablet 1 tablet ORAL DAILYthiamine 100 mg tab(s) (VITAMIN B1) 100 mg ORAL TIDiv contrast (radiology procedure) INTRAVENOUS DIRECTED PRNcodeine-guaiFENesin 5 mL oral liquid (ROBITUSSIN AC) 5 mL ORAL q 6 H PRNbenztropine 0.5 mg tab(s) (COGENTIN) 0.5 mg ORAL BIDpropranolol 20 mg tab(s) (INDERAL) 20 mg ORAL BIDvenlafaxine ER 150 mg cap(s) (EFFEXOR XR) 150 mg ORAL DAILY0.9% NaCl 3-5 mL 3-5 mL INTRAVENOUS q [address] 40 mg tab(s) (PROTONIX) 40 mg ORAL DAILY (6 AM)Labs:Recent Labs 12/28/1816NA 139 -- 140 135*K 3.6 -- 3.5 3.7CHLOR 109* -- 109* 104CO2 22 -- 26 28BUN 17 -- 16 17CREAT 3.00* -- 3.18* 3.36*GLUC 47* -- 71 92ANION 12 -- -- 7*CA 8.2* -- 8.3* 8.8P -- -- 4.2 --ALB -- -- 1.7* --WBC 20.19* 19.85* -- --HB 10.4* 11.0* -- --HCT 31.3* 33.3* -- --PLT 507* 538* -- --INR -- 0.92 -- --Exam:GENERAL: No distress, AlertNEURO: AANDOx3, no focal deficitsHEENT: normocephalic, atraumaticLUNGS: Unlabored breathing O2 Therapy: Room Air, decreased air movement inRUL per auscultation. 85mL in pleurevac. The increase is primarily tPAsolution.CARDIAC: Regular rate and rhythm as aboveEXTREMITIES: LOPEZ, No deformities, No edemaSKIN: Skin color, texture, turgor normal, No rashes or lesionsASSESSMENT AND PLAN:Active Hospital Problems Diagnosis Date Noted- Lung abscess ([facility]) 12/23/2017 Priority: A Chronic- SHARI (acute kidney injury) ([facility]) 12/27/2017 Priority: B- Pulmonary embolism, bilateral ([facility]) 12/24/2017 Priority: B Chronic- Bipolar 1 disorder ([facility]) 12/24/2017- Elevated blood pressure reading 12/24/2017- Unintentional weight loss 12/24/2017- Mediastinal lymphadenopathy 12/24/2017- Thrombocytosis ([facility]) 12/24/2017- Leukocytosis 12/24/2017- Macrocytic anemia 12/24/2017- Severe protein-calorie malnutrition ([facility]) 12/24/2017- Obesity, Class I, BMI 30-34.9 12/23/2017 Chronic- Alcohol abuse 03/17/2015- GERD (gastroesophageal reflux disease) 02/06/2015- Anxiety [birth year]89 year old male with recurrent R lung abscess?- management per primary- chest CT 12/23 - 9.0 x 6.4 x 9.6 cm RUL lung abscess, RULatelectasis/fibrosis, mediastinal adenopathy- ID recs - cont vanc/zosyn- MRSA negative- IR drain placed with 10fr (12/25), originally on suction bulb, changed topleurevac 12/26.?- Tube and abscess flushed with tPA ( 15mL tpa, 30mL saline,20 mL lidocaine) for 2 hours yesterday. Increase in output today likelytPA solution. - Will continue to monitor chest tube.- pulm recs- hx Pes on Eliquis- Imaging requested?for first incident of abscess in Nov at [facility].Records received yesterday.SIGNATURE: Wilfred Gamboa MD PATIENT NAME: Soraya BowserDATE: December 29, 2017 : 12:10 PM Pager: [phone] LahorraPatient seen and cxr reviewed. No significant response to tpa overnight ,but CXR improved. Apparently on heparin now which is OK.P-talked to patient at length about where we are and recommend gettingnoncontrast repeat CT chest to evaluate response to Rx. Normal [facility] US KIDNEY COMPLETEon 018 Protein mass conc Performed at [facility] APPROVED BY: MICH ROBINS MD RENAL ULTRASOUND CLINICAL HISTORY: Renal failure. Acute kidney injury. COMPARISON: CT abdomen/pelvis 12/24/2017 TECHNIQUE: Sonography of the kidneys and urinary bladder was performed. Images were obtained and stored in a permanent archive. RESULT: Right Kidney: -Renal size: 11.7 cm in length -Parenchyma: Renal parenchyma echogenicity is normal. -Cortical thickness: Normal. -No hydronephrosis. -Calculus: No echogenic, shadowing calculus. -Renal Lesion: None. Left Kidney: -Renal size: 12.2 cm in length -Parenchyma: Renal parenchyma echogenicity is normal. -Cortical thickness: Normal. -No hydronephrosis. -Calculus: No echogenic, shadowing calculus. -Renal Lesion: None. Bladder: Normal sonographic appearance. Prevoid bladder volume is 130 mL. Patient was unable to void at the time of the exam. IMPRESSION:1. Unremarkable ultrasound of the kidneys and urinary bladder. Normal [facility] Activated PTTon 12-28-2017 aPTT Coag time (Bld) 25.0 s Normal 22.0-34.0 [facility] Comment on above: Performed By: #### L AC ####[place] [address] C3on 12-28-2017 C3 134.0 mg/dL Normal 90.0-180.0 [facility] Comment on above: Performed By: #### G FR ####[facility] [place], [place] [address] C4on 12-28-2017 C4 23.6 mg/dL Normal 10.0-40.0 [facility] Comment on above: Performed By: #### G FR ####[facility] [place], [place] [address] CASE MANAGEMon 12-28-2017 CASE MANAGEM HNO ID: [id number] thor: Kaila (Rn) Torsten, RNService: Care ManagementAuthor Type: Registered NurseType: Care Mgt Progress NoteFiled: 12/28/2017 11:44 AMNote Text:CARE MANAGEMENT PROGRESS NOTESERVICE DATE: 12/28/2017SERVICE TIME: 11:41 AM LOS: 5 daysNeeds Prior to Discharge: Discharge Transportation;Home Care Order;IVAntibiotics;Pharmacy Bedside DeliveryNotes reviewd. IR drain to pleurevac. Remains on Vanc and Zosyn. Met withpatient regarding discharge plan for home once medically stable. Will needWC ambulette for ride home.SIGNATURE: Kaila Sarmiento RN PATIENT NAME: Soraya Avilez: December 28, 2017 : 11:40 AM PAGER/CONTACT #: [phone] Normal [facility] CHEST 1 VIEWon 12-28-2017 Protein mass conc Performed at [facility] APPROVED BY: Ramon Rosenthal MD EXAM TITLE: CHEST 1 VIEW DATE: 12/28/2017 04:52 INDICATION: Follow-up right-sided abscess drainage with chest tube. COMPARISON: 12/27/2017 at 08 43 Portable frontal view of the chest shows right-sided chest tube overlying the right chest in stable position. Right-sided pleural fluid and decreased aeration at the right lung base remain stable. Left lung is clear. Heart size is normal. There is a left-sided PICC line with tip in mid superior vena cava. IMPRESSION: New right-sided PICC line with tip in mid superior vena cava. Stable appearance of the right chest. Normal [facility] CONSULT PROGon 12-28-2017 Protein mass conc HNO ID: [id number] thor: Tenzni Fullerervice: Infectious DiseaseAuthor Type: PhysicianType: Consult Progress NoteFiled: 12/28/2017 5:02 PMNote Text:INFECTIOUS DISEASE PROGRESS NOTEPatient Name: Soraya Bowser HISTORY:R CT TPA today. R chest pain ongoing. Cough, nonproductiveNew cultures going organisms (young growth)Denies f/c/n/v/d.ASSESSMENT:1. Sepsis 2/ # 22. Right Upper Lobe Loculated Lung Abscess -- s/p IR drain 12/07 at OSH + GBS/ GCS/ Prevotella Oralis -- s/p repeat IR pigtail catheter placed at [facility] 12/25/17 - cx: ngtd -- likely aspiration related v/s complicated community acquired pna3. Leukocytosis4. Fever/ Chills5. Dyspnea/ Chest Pain due to #26. Ac on Chronic Anemia7. SHARI ? Etiology. Urine eos neg.PLAN:Keep zosyn - likely iv abx till 01/25/18Check CBC in am and daily x3F/U Final CulturesFollow WBC - if worsening trend, my need repeat CT chestMEDICATIONS: reviewed.Current hospital medications:piperacillin-tazob actam 3.375 g in dextrose (iso-osmotic) 50 mL (ZOSYN)3.375 g INTRAVENOUS q 8 Hheparin iv infusion (STANDARD NOMOGRAM) 25,000 units in NaCl 0.45% 250 mLPREMIX 0-3,000 Units/hr INTRAVENOUS CONTINUOUSheparin RATE CHANGE bolus 1,000-10,000 Units for subtherapeutic apttresults 1,000-10,000 Units INTRAVENOUS PRNheparin nomogram - NO INITIAL BOLUS OTHER ONCE (heparin bolus)traZODone 150 mg tab(s) (DESYREL) 150 mg ORAL AT BEDTIMEoxyCODONE-acetaminophen 5-325 mg 1-2 tablet (PERCOCET) 1-2 tablet ORAL q 6H PRNQUEtiapine 100 mg tab(s) (SEROquel) 100 mg ORAL AT BEDTIMENaCl 0.9% iv infusion 100 mL/hr INTRAVENOUS CONTINUOUS0.9% NaCl 10 mL 10 mL INTRAVENOUS q 12 H0.9% NaCl 20 mL 20 mL INTRAVENOUS PRNacetaminophen 650 mg tab(s) (TYLENOL) 650 mg ORAL q 6 H PRNprenatal vitamin with folic acid 1 mg 1 tablet 1 tablet ORAL DAILYthiamine 100 mg tab(s) (VITAMIN B1) 100 mg ORAL TIDiv contrast (radiology procedure) INTRAVENOUS DIRECTED PRNcodeine-guaiFENesin 5 mL oral liquid (ROBITUSSIN AC) 5 mL ORAL q 6 H PRNbenztropine 0.5 mg tab(s) (COGENTIN) 0.5 mg ORAL BIDpropranolol 20 mg tab(s) (INDERAL) 20 mg ORAL BIDvenlafaxine ER 150 mg cap(s) (EFFEXOR XR) 150 mg ORAL DAILY0.9% NaCl 3-5 mL 3-5 mL INTRAVENOUS q [address] 40 mg tab(s) (PROTONIX) 40 mg ORAL DAILY (6 AM)PHYSICAL EXAM:Vital signs: BP 108/74 Pulse 65 Temp 36.6 ?C (97.9 ?F) (Oral) Resp 18 Ht 177.8 cm (5' 10 ) Wt 101 kg (222 lb 10.6 oz) SpO2 95% BMI 31.95 kg/m?General: alert, oriented, NADLungs: b/l scattered rhonchi better, diminished. R chest drain--> CTHeart: regular rate and rhythmAbdomen: soft, non tender, non distended, BS+Extremities: no swollen jointsSkin: no rashIV sites - L PICC site (12/27)Lab data: reviewedRecent Labs 12/27/1813WBC -- -- 23.61*HB -- -- 11.1*PLT -- -- 478*NA 140 135* 138K 3.5 3.7 3.6CO2 26 28 23BUN 16 17 15CREAT 3.18* 3.36* 3.03*Microbiology data:12/25 Abscess cx: young growthMRSA nares negImaging data: reviewedSantiago Tucker Infectious Disease SpecialistsPager: [phone] 2017 4:54 PM++++++++++++++++++++++++++++ ++++++++++++++++++++++++++++++ +++++++++Above reflects my direct input except for changes as amended. Revieweddata independently.Tenzin Cantrell MD12/28/20175:02 PM Normal [facility] CPKon 12-28-2017 CK enzyme act/vol 12 U/L Low 39-308 [facility] Comment on above: Performed By: #### G FR ####[place] [address] Creatinine,Urineon 8 Creatinine,Urine 34.8 mg/dL Normal [facility] Comment on above: Performed By: #### L AC ####[place] [address] Eosin Screen,Urineon 018 Eosin Screen,Urine 0 % Normal None seen [facility] Comment on above: Performed By: #### L AC ####[place] [address] Hemogramon 12-28-2017 Erythrocyte distribution width Auto Ratio (RBC) 13.5 % Normal 11.6-14.4 [facility] Comment on above: Performed By: #### L AC ####[place] [address] Hematocrit Auto Volume Fraction (Bld) 33.3 % Low 40.1-51.0 [facility] Comment on above: Performed By: #### L AC ####[place] [address] Hemoglobin mass conc (Bld) 11.0 g/dL Low 13.7-17.5 [facility] Comment on above: Performed By: #### L AC ####[place] [address] MCH Auto Entitic mass (RBC) 33.8 pg High 25.7-32.2 [facility] Comment on above: Performed By: #### L AC ####[place] [address] MCHC Auto mass conc (RBC) 33.0 % Normal 32.3-36.5 [facility] Comment on above: Performed By: #### L AC ####[place] [address] MCV Auto Entitic volume (RBC) 102.5 fL High 83.2-95.6 [facility] Comment on above: Performed By: #### L AC ####[place] [address] Platelet mean volume Auto Entitic volume (Bld) 9.0 fL Normal 8.7-12.0 [facility] Comment on above: Performed By: #### L AC ####[place] [address] Platelets Auto #/vol (Bld) 538 thou/cmm High 141-365 [facility] Comment on above: Performed By: #### L AC ####[place] [address] RBC Auto #/vol (Bld) 3.25 mil/cmm Low 4.63-6.08 [facility] Comment on above: Performed By: #### L AC ####[place] [address] RDW SD 51.4 fl High 36.1-45.8 [facility] Comment on above: Performed By: #### L AC ####[place] [address] WBC Auto #/vol (Bld) 19.85 thou/cmm High 4.23-9.07 [facility] Comment on above: Performed By: #### L AC ####[place] [address] Serumon 12-28-[address] Serum 1.5 mEq/L High 0.6-1.2 [facility] Comment on above: Performed By: #### G FR ####[place] [address] PROCEDUREon 12-28-2017 Protein mass conc HNO ID: [id number] thor: Dragan Maciaservice: Thoracic SurgeryAuthor Type: PhysicianType: ProceduresFiled: 12/28/2017 4:38 PMNote Text:TPA 60cc/Lidocaine 1% 15cc instilled into patient's R 10 Fr chest tube.Stopcock was turned to closed position prior to connection of syringe. tPAand lidocaine solution injected. Stopcock turned to closed position andsyringe removed. Pt tolerated well, no complications noted.Continue clamp for 2-3 hours, with position change every 15 minutes toimprove penetration of TPA into pleural space. Open stopcock and unclamptube after this period of time and suction returned to previous level.Appropriate orders with instructions have been placed.SIGNATURE: Wilfred Gamboa MD PATIENT NAME: Soraya LaoTE: December 28, 2017 : 3:59 PM PAGER/CONTACT #: [phone] Aliya discussed and thanks. [facility] PROGRESSon 12-28-2017 Protein mass conc HNO ID: [id number] thor: OSMANY Cardoza Reservice: Hospital MedicineAuthor Type: ResidentType: Progress NotesFiled: 12/28/2017 2:24 PMNote Text: Attes tation signed by Franklin Neely at 12/28/2017 9:28 PMI saw and evaluated the patient. I discussed the patient's case with theresident and agree with resident's findings and plan as documented in theresident's note. Pain under fair control. Afebrile. Some drainage into JPdrain.Patient Active Hospital Problem List: Lung abscess (HCC) (12/23/2017) Pulmonary embolism, bilateral (HCC) (12/24/2017) SHARI (acute kidney injury) (HCC) (12/27/2017) Anxiety (02/13/2014) GERD (gastroesophageal reflux disease) (02/06/2015) Alcohol abuse (03/17/2015) Obesity, Class I, BMI 30-34.9 (12/23/2017) Bipolar 1 disorder (HCC) (12/24/2017) Elevated blood pressure reading (12/24/2017) Unintentional weight loss (12/24/2017) Mediastinal lymphadenopathy (12/24/2017) Thrombocytosis (HCC) (12/24/2017) Leukocytosis (12/24/2017) Macrocytic anemia (12/24/2017) Severe protein-calorie malnutrition (HCC) (12/24/2017)Plan:?ABX per ID. Zosyn to 01/25/18.?CTVS following drain.?Nephro on board for SHARI. Renal US pending.?Switch to heparin gtt for continuing anticoagulation for recent PEs.?Follow lithium level.PCP: Kiran French MDAugust 2017 9:25 PM SERVICE DATE: 12/28/2017SERVICE TIME: 2:20 PMHOSPITAL MEDICINE PROGRESS NOTENIGHT AND WEEKEND COVERAGE: From 7am - 7pm, please call [phone] 7pm, please call cross cover pager #[phone] HPI: No ChangeToday the pateint is doing well, he still complaining of mild right chestpain, his cough is improving. No SOB. Afebrile. He is urinating every 2Hours without any blood.OBJECTIVEBP 121/71 Pulse 70 Temp (Src) 97 (Oral) Resp 18 Ht 5' 10 (1.78m) Wt 222 lb 10.6 oz (101.0kg) SpO2 95% BMI 31.95 kg/(m2).Physical Exam Performed:GENERAL: GENERAL APPEARANCE NCCC: well appearing, alert and in no acutedistressHEART: HEART CCF: regular rate and rhythm, no murmer, gallop or rub,normal, S1, S2, no lifts, heaves, or thrills, PMI not displacedLUNGS: LUNGS CCF: clear to percussion and auscultation and no ralesABDOMEN: ABDOMEN: Soft, nontender, bowel sounds normal, no palpableorganomegaly, no bruits.EXTREMITY: EXTREMITY EXAM: Normal exam of the extremities. No clubbing,cyanosis, or edema.Lines, Drains, and Airways Line Central Line Single Lumen 12/27/17 1132 Peripherally Inserted (PICC) LeftArm Through Introducer 4.0 Somali 1 day Drain Drain/Tube 12/25/17 1321 Pigtail Right Medial Chest Drain #1 3 daysMedications: ReviewedDiagnostic tests reviewed:Most recent imagingRecent Labs 12/25/1804WBC 23.61* 20.78* 20.94*RBC 3.26* 3.29* 3.26*HB 11.1* 11.1* 11.1*HCT 32.5* 34.2* 33.0*PLT 478* 376* 394*MCV 99.7* 104.0* 101.2*MCH 34.0* 33.7* 34.0*MPV 9.2 9.4 9.2RDW 13.5 13.3 13.2METAMYELO -- -- 2.0Recent Labs 12/27/1813GLUC 71 92 76 90 98NA 140 135* 138 138 138K 3.5 3.7 3.6 3.6 3.4*CHLOR 109* 104 106 107 103CO2 26 28 23 24 26CREAT 3.18* 3.36* 3.03* 0.82 0.88BUN 16 17 15 4* 7ANION -- 7* 13 -- 12CA 8.3* 8.8 8.5 8.7 8.5TPROT -- -- -- -- 6.9ALB 1.7* -- -- 1.9* 2.3*TBILI -- -- -- -- 0.4ALKPHOS -- -- -- -- 170*AST -- -- -- -- 29ALT -- -- -- -- 46Most recent labsCARE COORDINATION:No Patient Care Coordination Note on file.ASSESSMENT AND PLANAssessment AND Plan, all Hosp ProblemsActive Hospital Problems as of 12/28/2017 Noted - Resolved Cardiovascular Pulmonary embolism, bilateral ([facility]) 12/24/2017 - Present Current Assessment AND Plan- UA analysis is positive for RBCs- today he denied any pinkish urine- Eliquis changed to heparin today for possible renal biopsy perNephrology. Elevated blood pressure reading 12/24/2017 - Present Current Assessment AND Plan - Continue to monitor BP- Suspect undiagnosed HTN Sinus tachycardia 12/24/2017 - Present Current Assessment AND Plan - Likely a reaction from infection/pain Pulmonary Lung abscess ([facility]) 12/23/2017 - Present Current Assessment AND Plan - CT chest shows change from [id number] to 9X6.4X9.4cm loculated airfluid thin walled abscess in the right upper lobe, associated withmediastinal lymphadenopathy, which is consistent with anaerobic abscesshence anaerobic infection.- s/p IR drain 12/07 at OSH + GBS/ GCS/ Prevotella Oralis- WBC is 23- Urine toxicology is positive for opiates- IR drained the abscess- Abscess culture is negative for day 1, 2.- stop vancomycin and continue zosyn per ID (high vancomycin trough)through PICC line- Adjust zosyn dose according to renal function- Continue antibiotics until 01/25- MRSA nares is negative. Gastrointestinal Diarrhea 12/22/2016 - Present Current Assessment AND Plan- Celiac panel is nrgative- Stool culture and lactoferrin still pending.- CT abdomen didn't show any acute events- Consider GI consult if needed when stool results are back id needed. GERD (gastroesophageal reflux disease) 02/06/2015 - Present Current Assessment AND Plan - Continue home PPI Severe protein-calorie malnutrition (HCC) 12/24/2017 - Present Current Assessment AND Plan Nephrology SHARI (acute kidney injury) ([facility]) 12/27/2017 - Present Current Assessment AND Plan- Cr today 3.18 (0.8 his baseline)- SHARI stage 3- Nephrology consulted, we appreciate reccomendations.- FeNA is <1 consistant with pre-renal, contrast-induced nephrotoxicity,GN or antibiotic Induced- Renal US, urine Eosinophils, UPCr are is still pending- CK is within normal, not duo to rhabdomyolisis- Adjust zosyn, lithium dose according to Cr clearance- IVF and increase oral intake, no need for urgent dialysis- Change Eliquis to heparin for possible renal biopsy if there is noimprovement Hematology Thrombocytosis (HCC) 12/24/2017 - Present Leukocytosis 12/24/2017 - Present Current Assessment AND Plan - Likely secondary to lung abscess. Macrocytosis without anemia 12/24/2017 - Present Current Assessment AND Plan - Likely due to alcohol abuse. Infectious Disease Mediastinal lymphadenopathy 12/24/2017 - Present Current Assessment AND Plan - Likely reactive from infection. Psychiatry Anxiety 02/13/2014 - Present Current Assessment AND Plan - Continue with Propanolol Alcohol abuse 03/17/2015 - Present Current Assessment AND Plan - Patient denied alcohol abuse.- CIWA will be implemented. Bipolar 1 disorder (HCC) 12/24/2017 - Present Current Assessment AND Plan - Continue [address] , Trazodone and Seroquel and Venlafaxine. Other Obesity, Class II, BMI 35-39.9 12/23/2017 - Present Current Assessment AND Plan - Counseled- will be followed up by PCP Unintentional weight loss 12/24/2017 - Present Current Assessment AND Plan - See plan for diarrhea as above.Medication and Non-Pharmacologic VTE Prophylaxis/AnticoagulantsAnti coagulant AND Antiplatelet Medications Start Dose Route Frequency Ordered Stop 12/28/17 0900 heparin 5,000 Units injection 5,000 Units SUBCUTANEOUS EVERY 8 HOURS 12/28/17 0819 --12/23/17 2300 vte pharmacologic prophylaxis contraindicated ([place])12/23/17 2300 activity - mobilize patient ([place])VTE Prophylaxis: VTE prophylaxis appropriatePlan of care discussed with: AttendingSIGNATURE: Malik Morales MD PATIENT NAME: Soraya BowserDATE: December 28, 2017 : 2:20 PM PAGER/CONTACT #: [phone] Normal [facility] Protein mass conc HNO ID: [id number] thor: Teddy Barbosa: NephrologyAuthor Type: PhysicianType: Progress NotesFiled: 12/28/2017 11:43 AMNote Text:Nephrology Progress NoteFollowing for SHARI.Pt denies SOB at rest. No current CP. No nausea or diarrhea.Current Inpatient Medications:Current Facility-Administered Medications Ordered in Epic:heparin 5,000 Units injection 5,000 Units SUBCUTANEOUS q 8 H Arrvind (Res)Raghunathpiperacillin-darcy obactam 3.375 g in dextrose (iso-osmotic) 50 mL (ZOSYN)3.375 g INTRAVENOUS q 8 H Arrvind (Res) RaghunathtraZODone 150 mg tab(s) (DESYREL) 150 mg ORAL AT BEDTIME Arrvind (Res)Raghunath 150 mg at 12/27/172044oxyCODONE-acetaminophen 5-325 mg 1-2 tablet (PERCOCET) 1-2 tablet ORAL q 6H PRN Franklin Luis Carlosmarco Vergaraa 2 tablet at 12/28/17 0810QUEtiapine 100 mg tab(s) (SEROquel) 100 mg ORAL AT BEDTIME Arrvind (Res)Raghunath 100 mg at 12/27/17 204NaCl 0.9% iv infusion 100 mL/hr INTRAVENOUS CONTINUOUS Arrvind (Res)Raghunath Last Rate: 100 mL/hr at 12/28/17 0230 100 mL/hr at 12/28/17 70184.9% NaCl 10 mL 10 mL INTRAVENOUS q 12 H Mayuri (Wood Block Artist) Slick 10 mL at12/28/17 53935.9% NaCl 20 mL 20 mL INTRAVENOUS PRN Mayuri (Wood Block Artist) Markleacetaminophen 650 mg tab(s) (TYLENOL) 650 mg ORAL q 6 H PRN Malik (Res)MD Carmen 650 mg at 12/27/17 0900prenatal vitamin with folic acid 1 mg 1 tablet 1 tablet ORAL DAILY Yashu(Res) Dhamija 1 tablet at 12/28/17 0813thiamine 100 mg tab(s) (VITAMIN B1) 100 mg ORAL TID Yashu (Res) [id number] mg at 12/28/17 0811iv contrast (radiology procedure) INTRAVENOUS DIRECTED PRN Yashu (Res)Dhamijacodeine-guaiFENesi n 5 mL oral liquid (ROBITUSSIN AC) 5 mL ORAL q 6 H PRNCjaida Phelps 5 mL at 12/25/17 1329benztropine 0.5 mg tab(s) (COGENTIN) 0.5 mg ORAL BID Yashu (Res) Dhamija0.5 mg at 12/28/17 0811propranolol 20 mg tab(s) (INDERAL) 20 mg ORAL BID Yashu (Res) Dhamija 20mg at 12/28/17 0811venlafaxine ER 150 mg cap(s) (EFFEXOR XR) 150 mg ORAL DAILY Yashu (Res)Dhamija 150 mg at 12/28/17 47828.9% NaCl 3-5 mL 3-5 mL INTRAVENOUS q 12 H Yashu (Res) Dhamija 3 mL at12/27/[address] 40 mg tab(s) (PROTONIX) 40 mg ORAL DAILY (6 AM) Jeremie DelmarYareli 40 mg at 12/28/17 0540No current [facility]-ordered outpatient prescriptions on file.Vitals:BP 121/71 Pulse 70 Temp 36.1 ?C (97 ?F) (Oral) Resp 18 Ht177.8 cm (5' 10 ) Wt 101 kg (222 lb 10.6 oz) SpO2 95% BMI 31.95kg/m?BLOOD PRESSURE RANGE: Systolic (24hrs), Av , Min:105 , Max:121; Diastolic (24hrs), Av, Min:62, Max:7224HR INTAKE/OUTPUT:Intake/Output Summary (Last 24 hours) at 12/28/17 1133Last data filed at 12/28/17 0544 Gross per 24 hourIntake 1020 mlOutput 1940 mlNet -920 mlPhysical exam:Constitutional: NADSkin: no rash, turgor wnlHeent: eomi, mmmNeck: no bruits or jvd notedCardiovascular: S1, S2 normalRespiratory: CTABAbdomen: +bs, soft, nt, ndExt: no lower extremity edemaData:Labs:Recent Labs WBC 23.61*HB 11.1*HCT 32.5*MCV 99.7*PLT 478*Recent Labs 12/27/1813NA 140 135* 138K 3.5 3.7 3.6CO2 26 28 23BUN 16 17 15CREAT 3.18* 3.36* 3.03*CA 8.3* 8.8 8.5Assessment and Plan1. Acute kidney injury. Normal baseline renal function. SCr was 0.82 mg/dLon 12/25/17.Differential diagnoses for SHARI is broad at this point. Possibilities foretiology of SHARI include:A) Prerenal azotemia from volume depletion-FEna is <1%. However, pt hasbeen taking po well, so prerenal azotemia is less likely.B) ATN which could be ischemic or nephrotoxic-pt did received IV contraston 12/24/17. There is no evidence of rhabdomyolysis.C) Antibiotic related AIN-Pt had been on beta lactam since 12/10. Lowsuspicion for this cause currently, but check urine eosinophils.D) Glomerulonephritis which can be related to ongoing infection (lungabscess)-FENa<1% can be consistent with this. However, complements arenormal, and there is lack of proteinuria or RBC in the most recent UA.Will check UPCR.E) [address] induced SHARI-Less likely. Suspect Li is high because of AKIrather than Li causing SHARI. Nevertheless, this remains in thedifferential.?I have low suspicion for other causes of SHARI. There is no obstruction seenon recent CT scan.I encourage oral intake today to prevent volume depletion. Agree withcontinuing IVF.No urgent need for LUSTER REPAIRER; SCr is slightly better.Avoid further IV contrast. Avoid NSAID.No change in treatment from my standpoint today. Most likely cause of AKIat this point would be ATN from IV contrast. This type of SHARI shouldstabilize and improve. If there is no further improvement, the pt may needa kidney biopsy to elucidate the etiology of SHARI.?2. Lung abscess. s/p CT drainage. Antibiotic as per ID. Agree withadjustment of Zosyn for SHARI. Current dose of Zosyn is acceptable.?3. Bipolar disorder. Although I do not think the pt has Shari from lithiuminduced AIN (see above), I do agree with holding lithium and followinglevel.?4. PE. Pt had been on Eliquis. I would recommend IV heparin ifanticoagulation is to be restarted since we may need more invasive studiessuch as renal biopsy or catheter placement. Will d/w [facility].Will d/w [facility].Please do not hesitate to contact me at [phone] if there is anyquestion or concern.Kali Teresa MD ([place]) Normal [facility] Protein mass conc HNO ID: [id number] thor: Dragan Maciaservice: Thoracic SurgeryAuthor Type: PhysicianType: Progress NotesFiled: 12/28/2017 5:44 PMNote Text:Thoracic Surgery Progress NoteSERVICE DATE: 12/28/2017SubjectiveSUBJECTIVE:N AEON. R chest wall pain 09/29 from 08/30.Denies N/V/CP/SOBDiet: DIET REGULARObjectiveOBJECTIVE:Tuyet ls:Temp (24hrs), Av.6 ?C (97.9 ?F), Min:36.1 ?C (97 ?F), Max:36.8 ?C(98.2 ?F)BP 121/71 Pulse 70 Temp 36.1 ?C (97 ?F) (Oral) Resp 18 Ht177.8 cm (5' 10 ) Wt 101 kg (222 lb 10.6 oz) SpO2 95% BMI 31.95kg/m?O2 Therapy: Room AirIANDO:Date 12/27/17699 - 12/28/17 0659 12/28/17 07 - 12/29/17 0659Shift 3368-6480 0960-0458 1389-9656 24 Hour Total 3889-2908 1655-19048481-3938 24 Hour TotalINTAKE PO 1160 232 460 5860 PO 1160 733 060 9668 Shift Total 1160 360 300 1820OUTPUT Urine 700 561 145 4268 Void (ml) 700 222 339 4844 Amount Voided Before Scan 200 200 Tubes 0 15 15 Drain/Tube Output (Drain/Tube 12/25/17 1321 Pigtail Right Medial ChestDrain #1) 0 15 15 Shift Total 700 815 825 2340Weight (kg) 99.2 99.2 101 101 101 101 101 101MEDICATIONSCurrent Facility-Administered Medications:heparin 5,000 Units injection 5,000 Units SUBCUTANEOUS q 8 Hpiperacillin-tazobactam 3.375 g in dextrose (iso-osmotic) 50 mL (ZOSYN)3.375 g INTRAVENOUS q 8 HtraZODone 150 mg tab(s) (DESYREL) 150 mg ORAL AT BEDTIMEoxyCODONE-acetaminophen 5-325 mg 1-2 tablet (PERCOCET) 1-2 tablet ORAL q 6H PRNQUEtiapine 100 mg tab(s) (SEROquel) 100 mg ORAL AT BEDTIMENaCl 0.9% iv infusion 100 mL/hr INTRAVENOUS CONTINUOUS0.9% NaCl 10 mL 10 mL INTRAVENOUS q 12 H0.9% NaCl 20 mL 20 mL INTRAVENOUS PRNacetaminophen 650 mg tab(s) (TYLENOL) 650 mg ORAL q 6 H PRNprenatal vitamin with folic acid 1 mg 1 tablet 1 tablet ORAL DAILYthiamine 100 mg tab(s) (VITAMIN B1) 100 mg ORAL TIDiv contrast (radiology procedure) INTRAVENOUS DIRECTED PRNcodeine-guaiFENesin 5 mL oral liquid (ROBITUSSIN AC) 5 mL ORAL q 6 H PRNbenztropine 0.5 mg tab(s) (COGENTIN) 0.5 mg ORAL BIDpropranolol 20 mg tab(s) (INDERAL) 20 mg ORAL BIDvenlafaxine ER 150 mg cap(s) (EFFEXOR XR) 150 mg ORAL DAILY0.9% NaCl 3-5 mL 3-5 mL INTRAVENOUS q [address] 40 mg tab(s) (PROTONIX) 40 mg ORAL DAILY (6 AM)Labs:Recent Labs 12/27/1813NA 140 135* 138K 3.5 3.7 3.6CHLOR 109* 104 106CO2 26 28 23BUN 16 17 15CREAT 3.18* 3.36* 3.03*GLUC 71 92 76ANION -- 7* 13CA 8.3* 8.8 8.5P 4.2 -- --ALB 1.7* -- --WBC -- -- 23.61*HB -- -- 11.1*HCT -- -- 32.5*PLT -- -- 478*Exam:GENERAL: No distress, AlertNEURO: AANDOx3, no focal deficitsHEENT: normocephalic, atraumaticLUNGS: Unlabored breathing O2 Therapy: Room Air, decreased air movement inRUL per auscultation. 25 mL out in pleurevac, purulent sanguinous fluid.CARDIAC: Regular rate and rhythm as aboveEXTREMITIES: LOPEZ, No deformities, No edemaSKIN: Skin color, texture, turgor normal, No rashes or lesionsASSESSMENT AND PLAN:Active Hospital Problems Diagnosis Date Noted- Pulmonary embolism, bilateral (HCC) 12/24/2017 Priority: A- Lung abscess (HCC) 12/23/2017 Priority: A- SHARI (acute kidney injury) ([facility]) 12/27/2017 Priority: B- Diarrhea 12/22/2016 Priority: L Overview Note: Added automatically from request for surgery [id number]- Bipolar 1 disorder ([facility]) 12/24/2017- Elevated blood pressure reading 12/24/2017- Unintentional weight loss 12/24/2017- Mediastinal lymphadenopathy 12/24/2017- Sinus tachycardia 12/24/2017- Thrombocytosis (HCC) 12/24/2017- Leukocytosis 12/24/2017- Macrocytosis without anemia 12/24/2017- Severe protein-calorie malnutrition ([facility]) 12/24/2017- Obesity, Class II, BMI 35-39.9 12/23/2017- Alcohol abuse 03/17/2015- GERD (gastroesophageal reflux disease) 02/06/2015- Anxiety 02/13/2014?52 year old male with recurrent R lung abscess?- management per primary- chest CT 12/23 - 9.0 x 6.4 x 9.6 cm RUL lung abscess, RULatelectasis/fibrosis, mediastinal adenopathy- ID recs - cont vanc/zosyn- MRSA negative- IR drain placed with 10fr (12/25), originally on suction bulb, changed topleurevac 12/26. - output today, will also attempt tPA flush- pulm recs- hx Pes on Eliquis- Imaging requested?for first incident of abscess in Nov at [facility].No records as of the AM (12/27)?Assessment and plan discussed with attending: Dr. JohnsonATURE: Wilfred Gamboa MD PATIENT NAME: Soraya BowserDATE: December 28, 2017 : 10:37 AM Pager: [phone] LahorraPatient seen and careplan d/w resident. [facility] small bilateral filling defects inbranches.P-see if responds to TPA via drain. Normal [facility] Protimeon 12-28-2017 INR Coag RelTime (PPP) 0.92 {INR} Normal [facility] Comment on above: Result Comment: Andrew dard Therapy 2.0-3.0High Dose 2.5-3.5 Performed By: #### L AC ####[facility] [place], [place] [address] Prothrombin time (PT) Coag time (PPP) 9.9 s Normal 9.3-11.9 [facility] Comment on above: Performed By: #### L AC ####[facility] [place], [place] [address] Renal Panelon 12-28-2017 Creatinine mass conc 3.18 mg/dL High 0.67-1.17 [facility] Comment on above: Performed By: #### G FR ####[facility] [place], [place] [address] Phosphate mass conc 4.2 mg/dL Normal 2.5-4.9 [facility] Comment on above: Performed By: #### G FR ####[address] [address] Albumin mass conc 1.7 g/dL Low 3.4-5.0 [facility] Comment on above: Performed By: #### G FR ####[address] [address] Calcium mass conc 8.3 mg/dL Low 8.5-10.1 [facility] Comment on above: Performed By: #### G FR ####[address] [address] CO2 molar conc 26 mmol/L Normal 21-32 [facility] Comment on above: Performed By: #### G FR ####[facility] [place], [place] [address] Glucose mass conc 71 mg/dL Normal 70-99 [facility] Comment on above: Performed By: #### G FR ####[facility] [place], [place] [address] Urea nitrogen mass conc 16 mg/dL Normal 7-18 [facility] Comment on above: Performed By: #### G FR ####[address] [address] Chloride molar conc 109 mmol/L High 98-107 [facility] Comment on above: Performed By: #### G FR ####[facility] [place], [place] [address] Potassium molar conc 3.5 mmol/L Normal 3.5-5.1 [facility] Comment on above: Performed By: #### G FR ####[facility] [place], [place] [address] Sodium molar conc 140 mmol/L Normal 136-145 [facility] Comment on above: Performed By: #### G FR ####[facility] [place], [place] [address] Urine Proteinon 12-28-2017 Protein Test strip Ql (U) 9.4 mg/dL Normal 0.0-11.9 [facility] Comment on above: Performed By: #### G FR ####[place] [address] Basic Panelon 12-27-2017 Creatinine mass conc 3.36 mg/dL High 0.67-1.17 [facility] Comment on above: Performed By: #### P 14 ####[place] [address] Anion gap 3 molar conc 7 mmol/L Low 8-16 [facility] Comment on above: Performed By: #### P 14 ####[address] [address] CO2 molar conc 28 mmol/L Normal 21-32 [facility] Comment on above: Performed By: #### P 14 ####[facility] [place], [place] [address] Glucose mass conc 92 mg/dL Normal 70-99 [facility] Comment on above: Performed By: #### P 14 ####[address] [address] Urea nitrogen mass conc 17 mg/dL Normal 7-18 [facility] Comment on above: Performed By: #### P 14 ####[place] [address] Calcium mass conc 8.8 mg/dL Normal 8.5-10.1 [facility] Comment on above: Performed By: #### P 14 ####[address], [place] [address] Chloride molar conc 104 mmol/L Normal 98-107 [facility] Comment on above: Performed By: #### P 14 ####[facility] [place], [place] [address] Potassium molar conc 3.7 mmol/L Normal 3.5-5.1 [facility] Comment on above: Performed By: #### P 14 ####[facility] [place], [place] [address] Sodium molar conc 135 mmol/L Low 136-145 [facility] Comment on above: Performed By: #### P 14 ####[facility] [place], [place] [address] Creatinine mass conc 3.03 mg/dL High 0.67-1.17 [facility] Comment on above: Performed By: #### P 14 ####[address] [address] Anion gap 3 molar conc 13 mmol/L Normal 8-16 [facility] Comment on above: Performed By: #### P 14 ####[address] [address] CO2 molar conc 23 mmol/L Normal 21-32 [facility] Comment on above: Performed By: #### P 14 ####[address] [address] Glucose mass conc 76 mg/dL Normal 70-99 [facility] Comment on above: Performed By: #### P 14 ####[facility] [place], [place] [address] Urea nitrogen mass conc 15 mg/dL Normal 7-18 [facility] Comment on above: Performed By: #### P 14 ####[facility] [place], [place] [address] Calcium mass conc 8.5 mg/dL Normal 8.5-10.1 [facility] Comment on above: Performed By: #### P 14 ####[address] [address] Chloride molar conc 106 mmol/L Normal 98-107 [facility] Comment on above: Performed By: #### P 14 ####[facility] [place], [place] [address] Potassium molar conc 3.6 mmol/L Normal 3.5-5.1 [facility] Comment on above: Performed By: #### P 14 ####[facility] [place], [place] [address] Sodium molar conc 138 mmol/L Normal 136-145 [facility] Comment on above: Performed By: #### P 14 ####[facility] [place], [place] [address] CHEST 1 VIEWon 12-27-2017 Protein mass conc Performed at [facility] APPROVED BY: Ramon Rosenthal MD EXAM TITLE: CHEST 1 VIEW DATE: 12/27/2017 08:43 INDICATION: Status post placement of right-sided chest tube. COMPARISON: Prior chest x-ray and CT scan dated 12/23/2017. Portable frontal view of the chest shows right-sided chest tube overlying the lateral aspect of the right upper lung. Previously noted prominent air-fluid collection overlying the right upper chest is presently not seen. There is however right-sided pleural effusion and diminished aeration at the right lung base similar to prior study dated 12/23/2017. Left lung is clear. Heart size is normal. IMPRESSION: Status post drainage of air-fluid collection seen in the right upper chest. Pigtail catheter in place. Persistent pleural thickening/pleural effusion and diminished aeration at the right lung base. Normal [facility] CONSULTon 12-27-2017 CONSULT HNO ID: [id number] thor: Teddy Barbosa: NephrologyAuthor Type: PhysicianType: ConsultsFiled: 12/27/2017 6:07 PMNote Text:[facility] [place] [id number] Consult NotePatient's Name: Soraya Bowser5:44 PM12/27/2017Reason for Consult: AKIATTENDING/ADMITTING PHYSICIAN:Franklin Bowie of Present Ilness:Soraya Bowser is a 52 year old male with past history of bipolardisorder was admitted 12/24/17 with cough and SOB. [facility]. He wasdiagnosed then with PE and RUL lung abscess. He was sent home on poAugmentin. He returned to ED on 12/24, but was sent here for furthertreatment.The pt underwent CT placement on 12/25/17 with improvement of cough.We are asked to see the pt because of SHARI with SCr increasing to 3.36mg/dL today. He was admitted with SCr of 0.82 mg/dL o 12/25/17.Pt reports transient gross hematuria on 12/25/17. There is no LUTS. Joyceenies current SOB, but has dyspnea on exertion. He has chest pain at thechest tube insertion site only. Cough has not been blood tinged. He deniesedema, orthopnea or PND.The pt did received IV contrast on 12/24/17 (150 mL of Omnipaque). He hasnot been on NSAID.PAST MEDICAL HISTORYDiagnosis Date- Bipolar 1 disorder (HCC)- GERD (gastroesophageal reflux disease)- Left elbow pain- Shoulder pain, rightPAST SURGICAL HISTORYProcedure Laterality Date- PAST SURGICAL HISTORY OF Right 1998 right wrist debridement (s/p infection of pins from repair)- PICC LINE INSERTION (PICC TEAM) ([place]) 12/27/2017FAMILY HISTORYProblem Relation Age of Onset- Adopted: Yes- congestive heart failure [OTHER] Maternal Grandmother- Cancer Father reports that he has never smoked. He has never used smokeless tobacco. Hereports that he drinks alcohol. He reports that he does not use drugs.Allergies: Patient has no known allergies.Current Medications:Current Facility-Administered Medications:traZODone 150 mg tab(s) (DESYREL) 150 mg ORAL AT BEDTIMEoxyCODONE-acetaminophen 5-325 mg 1-2 tablet (PERCOCET) 1-2 tablet ORAL q 6H PRNQUEtiapine 100 mg tab(s) (SEROquel) 100 mg ORAL AT BEDTIMENaCl 0.9% iv infusion 100 mL/hr INTRAVENOUS CONTINUOUSalteplase 5 mg in NaCl 0.9% 30 mL intrapleural syringe 5 mg INTRAPLEURALONCEpiperacillin-t azobactam 3.375 g in dextrose (iso-osmotic) 50 mL (ZOSYN)3.375 g INTRAVENOUS q 8 H0.9% NaCl 10 mL 10 mL INTRAVENOUS q 12 H0.9% NaCl 20 mL 20 mL INTRAVENOUS PRNacetaminophen 650 mg tab(s) (TYLENOL) 650 mg ORAL q 6 H PRNapixaban 5 mg tab(s) (ELIQUIS) 5 mg ORAL BIDprenatal vitamin with folic acid 1 mg 1 tablet 1 tablet ORAL DAILYthiamine 100 mg tab(s) (VITAMIN B1) 100 mg ORAL TIDiv contrast (radiology procedure) INTRAVENOUS DIRECTED PRNcodeine-guaiFENesin 5 mL oral liquid (ROBITUSSIN AC) 5 mL ORAL q 6 H PRNbenztropine 0.5 mg tab(s) (COGENTIN) 0.5 mg ORAL BIDpropranolol 20 mg tab(s) (INDERAL) 20 mg ORAL BIDvenlafaxine ER 150 mg cap(s) (EFFEXOR XR) 150 mg ORAL DAILY0.9% NaCl 3-5 mL 3-5 mL INTRAVENOUS q [address] 40 mg tab(s) (PROTONIX) 40 mg ORAL DAILY (6 AM)Review of Systems:10 ROS negative other than stated abovePhysical exam:BP 109/63 Pulse 71 Temp 36.7 ?C (98.1 ?F) (Oral) Resp 16 Ht177.8 cm (5' 10 ) Wt 99.2 kg (218 lb 11.1 oz) SpO2 97% BMI 31.38kg/m?General: AAO x 3, speaking in full sentences, no accessory muscle use.HEENT: Atraumatic, normocephalic, no throat congestion, dry mucosa.Eyes: Pupils equal, round and reactive to light, EOMI.Neck: No JVD, no thyromegaly, no lymphadenopathy.Chest: Coarse BS bilaterally.Cardiac: S1 S2 RR, no murmurs, gallops or rubs, JVP not raised.Abdomen: Soft, non-tender, no masses or organomegaly, BS audible.: No suprapubic or flank tenderness.Neuro: AAO x 3, No FND.SKIN: No rashes, good skin turgor.Extremities: No edema, palpable peripheral pulses, no calf tenderness.Labs:Recent Labs 4 527WBC 23.61* 20.78*HCT 32.5* 34.2*MCV 99.7* 104.0*PLT 478* 376*Recent Labs 12/27/1806NA 135* 138 138K 3.7 3.6 3.6CO2 28 23 24BUN 17 15 4*CREAT 3.36* 3.03* 0.82CA 8.8 8.5 8.7Input / Output:24 HR:Intake/Output Summary (Last 24 hours) at 12/27/17 1744Last data filed at 12/27/17 1642 Gross per 24 hourIntake 1520 mlOutput 1100 mlNet 420 mlImaging: I reviewed abdominal CT from 12/24/17->no hydronephrosis.Assessment and Plan1. Acute kidney injury. Normal baseline renal function. SCr was 0.82 mg/dLon 12/25/17.Differential diagnoses for SHARI is broad at this point. Possibilities foretiology of SHARI include:A) Prerenal azotemia from volume depletion-FEna is <1%. However, pt hasbeen taking po well, so less likely.B) ATN which could be ischemic or nephrotoxic-pt did received IV contraston 12/24/17. Will also check CPK although I have low suspicion forrhabdomyolysis.C) Antibiotic related AIN-Pt had been on beta lactam since 12/10. Lowsuspicion for this cause currently, but check urine eosinophils.D) Glomerulonephritis which can be related to ongoing infection (lungabscess)-FENa<1% can be consistent with this. However, there is lack ofproteinuria or RBC in UA. Will check UPCR and complements.E) [address] induced SHARI-Less likely. Suspect Li is high because of AKIrather than Li causing SHARI. Nevertheless, this remains in thedifferential.I have low suspicion for other causes of SHARI. There is no obstruction seenon recent CT scan.I encourage oral intake today to prevent volume depletion. Agree with IVF.Will send additional tests for work up as described above.No urgent need for LUSTER REPAIRER.Avoid further IV contrast. Avoid NSAID.Will follow.2. Lung abscess. s/p CT drainage. Antibiotic as per ID. Agree withadjustment of Zosyn for SHARI.3. Bipolar disorder. Although I do not think the pt has Shari from lithiuminduced AIN (see above), I do agree with holding lithium and follow level.4. PE. Pt had been on Eliquis. I would recommend IV heparin ifanticoagulation is to be restarted since we may need more invasive studiessuch as renal biopsy or catheter placement. Will d/w [facility].Thank you for allowing me to participate in care of Soraya Bowser.Please do not hesitate to contact me at [phone] with any concerns.Kali Teresa MD, ([place]) [facility] CONSULT PROGon 12-27-2017 Protein mass conc HNO ID: [id number] thor: Tenzin Fullerervice: Infectious DiseaseAuthor Type: PhysicianType: Consult Progress NoteFiled: 12/27/2017 4:52 PMNote Text:INFECTIOUS DISEASE PROGRESS NOTEPatient Name: Soraya Bowser HISTORY:Denies f/c/n/v. + diarrhea, one episode yesterday.Reports dyspnea with exertion, occasional dry cough. On room air.thick output from new drain.picc placedWbc slightly elevated 23.6 (20.78)ASSESSMENT:1. Sepsis 2/ # 22. Right Upper Lobe Loculated Lung Abscess -- s/p IR drain 12/07 at OSH + GBS/ GCS/ Prevotella Oralis -- s/p repeat IR pigtail catheter placed at [facility] 12/25/17 - cx: ngtd -- likely aspiration related v/s complicated CAP3. Leukocytosis4. Fever/ Chills5. Dyspnea/ Chest Pain due to #26. Ac on Chronic AnemiaPLAN:Keep zosyn - likely iv abx till 01/25/18F/U Final CulturesFollow WBC - if worsening trend, my need repeat CT chestMEDICATIONS: reviewed.Current hospital medications:0.9% NaCl 10 mL 10 mL INTRAVENOUS q 12 H0.9% NaCl 20 mL 20 mL INTRAVENOUS PRNacetaminophen 650 mg tab(s) (TYLENOL) 650 mg ORAL q 6 H PRNapixaban 5 mg tab(s) (ELIQUIS) 5 mg ORAL BIDprenatal vitamin with folic acid 1 mg 1 tablet 1 tablet ORAL DAILYthiamine 100 mg tab(s) (VITAMIN B1) 100 mg ORAL TIDiv contrast (radiology procedure) INTRAVENOUS DIRECTED PRNcodeine-guaiFENesin 5 mL oral liquid (ROBITUSSIN AC) 5 mL ORAL q 6 H PRNbenztropine 0.5 mg tab(s) (COGENTIN) 0.5 mg ORAL BIDpropranolol 20 mg tab(s) (INDERAL) 20 mg ORAL BIDtraZODone 300 mg tab(s) (DESYREL) 300 mg ORAL AT BEDTIMEvenlafaxine ER 150 mg cap(s) (EFFEXOR XR) 150 mg ORAL DAILYpiperacillin-tazobactam 3.375 g in dextrose (iso-osmotic) 50 mL (ZOSYN)3.375 g INTRAVENOUS q 6 H0.9% NaCl 3-5 mL 3-5 mL INTRAVENOUS q [address] 40 mg tab(s) (PROTONIX) 40 mg ORAL DAILY (6 AM)lithium carbonate 1,200 mg cap(s) (ESKALITH) 1,200 mg ORAL DAILYQUEtiapine 200 mg tab(s) (SEROquel) 200 mg ORAL AT BEDTIMEPHYSICAL EXAM:Vital signs: BP 104/62 Pulse 81 Temp 36.7 ?C (98.1 ?F) (Oral) Resp 16 Ht 177.8 cm (5' 10 ) Wt 99.2 kg (218 lb 11.1 oz) SpO2 93% BMI 31.38 kg/m?General: alert, oriented, NADLungs: b/l scattered rhonchi better, diminished. R chest drain--> CTHeart: regular rate and rhythmAbdomen: soft, non tender, non distended, BS+Extremities: no swollen jointsSkin: no rashIV sites - L PICCLab data: reviewedRecent Labs [id number] 23.61* 20.78*HB 11.1* 11.1*PLT 478* 376*NA 138 138K 3.6 3.6CO2 23 24BUN 15 4*CREAT 3.03* 0.82Microbiology data:12/25 Abscess cx: ngtdMRSA jono negImaging data: reviewedQuSantiago Jones Infectious Disease SpecialistsPager: [phone] 2017 9:41 AM++++++++++++++++++++++++++++ ++++++++++++++++++++++++++++++ +++++++++Above reflects my direct input except for changes as amended. Revieweddata independently.Tenzin Cantrell MD12/27/20174:52 PM Normal [facility] Celiac Disease Panelon 12-27 Gliadin(Deamin.)Ab s SEE BELOW Normal [facility] Comment on above: Result Comment: Glia d IgA Ab 5 <20 UnitsNegative : < 20 UnitsWeak Positive : 20 - 30 UnitsModerate Pos to Strong Pos: >30 UnitsThe following results were obtained with the [employer] QUANTA Lite GliadinIgA ASHLI. Gliadin IgA values obtained with different manufacturers' assaymethods may not be used interchangeably. The magnitude of the reported IgAlevels cannot be correlated to an endpoint titer.Gliad IgG Ab 2 <20 UnitsNegative : < 20 UnitsWeak Positive : 20 - 30 UnitsModerate Pos to Strong Pos: >30 UnitsThe following results were obtained with the [employer] QUANTA Lite GliadinIgG ASHLI. Gliadin IgG values obtained with different manufacturers' assaymethods may not be used interchangeably. The magnitude of the reported IgGlevels cannot be correlated to an endpoint titer.Performing Laboratory:[facility] [place] [address] Performed By: #### G FR ####[place] [address] Reticulin Ab Scrn SEE BELOW Normal [facility] Comment on above: Result Comment: Reti culin IgA/G Abs NegativeReference range: Negative(NOTE) ADDITIONAL INFORMATION This test was developed and its performance characteristicsdetermined by [facility] in a manner consistent with CLIArequirements. This test has not been cleared or approved bythe U.S. Food and Drug Administration.Test Performed by: [address] [address], unless otherwise specified.Performing Laboratory: Performed By: #### G FR ####[place] [address] Transglutaminase Abs SEE BELOW Normal [facility] Comment on above: Result Comment: Edgar sglutaminase IgG 3 <20 UnitsNegative : < 20 UnitsWeak Positive : 20 - 30 UnitsModerate Pos to Strong Pos: >30 UnitsThe following results were obtained with the [employer] QUANTA Lite h-hTGIgG ASHLI. h-tTG IgG values obtained with different manufacturers' assay methodsmay not be used interchangeably. The magnitude of the reported IgG levelscannot be correlated to an endpoint titer.Transglutaminase IgA 7 <20 UnitsNegative : < 20 UnitsWeak Positive : 20 - 30 UnitsModerate Pos to Strong Pos: >30 UnitsThe following results were obtained with the [employer] QUANTA Lite h-tTGIgA ASHLI. h-tTG IgA values obtained with different manufacturers' assay methodsmay not be used interchangeably. The magnitude of the reported IgA levelscannot be correlated to an endpoint titer.Performing Laboratory:[facility] [place] [address] Performed By: #### G FR ####[place] [address] Creatinine,Urineon 8 Creatinine,Urine 53.1 mg/dL Normal [facility] Comment on above: Performed By: #### G FR ####[place] [address] Hemogram/Diffon 12-27-2017 Abs. Baso 0.00 thou/cmm Low 0.01-0.08 [facility] Comment on above: Performed By: #### P 14 ####[place] [address] Abs. [place] 1.65 thou/cmm High 0.30-0.82 [facility] Comment on above: Performed By: #### P 14 ####[place] [address] Abs. Neut (ANC) 19.12 thou/cmm High 1.78-5.38 [facility] Comment on above: Performed By: #### P 14 ####[address], [place] [address] Basophils/100 WBC Auto (Bld) 0.0 % Normal [facility] Comment on above: Performed By: #### P 14 ####[facility] [place], [place] [address] Eosinophils Auto #/vol (Bld) 0.71 thou/cmm High 0.04-0.54 [facility] Comment on above: Performed By: #### P 14 ####[address] [address] Eosinophils/100 WBC Auto (Bld) 3.0 % Normal [facility] Comment on above: Performed By: #### P 14 ####[place] [address] Erythrocyte distribution width Auto Ratio (RBC) 13.5 % Normal 11.6-14.4 [facility] Comment on above: Performed By: #### P 14 ####[place] [address] Hematocrit Auto Volume Fraction (Bld) 32.5 % Low 40.1-51.0 [facility] Comment on above: Performed By: #### P 14 ####[place] [address] Hemoglobin mass conc (Bld) 11.1 g/dL Low 13.7-17.5 [facility] Comment on above: Performed By: #### P 14 ####[address] [address] Lymphocytes Auto #/vol (Bld) 2.12 thou/cmm Normal 0.84-2.85 [facility] Comment on above: Performed By: #### P 14 ####[address] [address] Lymphocytes/100 WBC Auto (Bld) 9.0 % Normal [facility] Comment on above: Performed By: #### P 14 ####[address] [address] MCH Auto Entitic mass (RBC) 34.0 pg High 25.7-32.2 [facility] Comment on above: Performed By: #### P 14 ####[facility] [place], [place] [address] MCHC Auto mass conc (RBC) 34.2 % Normal 32.3-36.5 [facility] Comment on above: Performed By: #### P 14 ####[address] [address] MCV Auto Entitic volume (RBC) 99.7 fL High 83.2-95.6 [facility] Comment on above: Performed By: #### P 14 ####[place] [address] Monocytes/100 WBC Auto (Bld) 7.0 % Normal [facility] Comment on above: Performed By: #### P 14 ####[place] [address] Platelet mean volume Auto Entitic volume (Bld) 9.2 fL Normal 8.7-12.0 [facility] Comment on above: Performed By: #### P 14 ####[place] [address] Platelets Auto #/vol (Bld) 478 thou/cmm High 141-365 [facility] Comment on above: Performed By: #### P 14 ####[place] [address] RBC Auto #/vol (Bld) 3.26 mil/cmm Low 4.63-6.08 [facility] Comment on above: Performed By: #### P 14 ####[place] [address] RBC morphology finding Nom (Bld) Normal Normal [facility] Comment on above: Performed By: #### P 14 ####[place] [address] RDW SD 49.5 fl High 36.1-45.8 [facility] Comment on above: Performed By: #### P 14 ####[place] [address] Seg Neutrophil 81.0 % Normal [facility] Comment on above: Performed By: #### P 14 ####[facility] [place], [place] [address] WBC Auto #/vol (Bld) 23.61 thou/cmm High 4.23-9.07 [facility] Comment on above: Performed By: #### P 14 ####[address] Serumon 12-27-[address] Serum 1.7 mEq/L Critically high 0.6-1.2 [facility] Comment on above: Result Comment: RESU LT RECHECKED Performed By: #### P 14 ####[address] [address] NUTRITIONon 12-27-2017 NUTRITION HNO ID: [id number] thor: Fél[address] (Rd) FranciscokService: Nutrition TherapyAuthor Type: Registered DietitianType: NutritionFiled: 12/27/2017 3:40 PMNote Text:NUTRITION THERAPY PROGRESS NOTESERVICE DATE: 12/27/2017SERVICE TIME: 14:40RECOMMENDED DIAGNOSIS: SEVERE PROTEIN-CALORIE MALNUTRITION per RegisteredDietitian on 12/24/17In the context of Social/Environmental Circumstance based on:Unintentional Weight Loss: >10% in 6 monthsInsufficient Energy Intake: less than or equal to 50% for greater than orequal to 1 monthNUTRITION CARE PLANProblem, Etiology and Signs/Symptoms:Suboptimal protein/energy intake related to feelings of depression asevidenced by patient interview.Intervention:1. Encourage PO intake2. Trial Ensure Clear apple BID to provide 240 kcal and 8 gm proteinMonitor and Evaluation:Goal: Meet >75% of estimated needsMonitor fluid/electrolyte balanceMonitor labs, I/Os, vital signs, weightDischarge Nutrition Recommendations:Diet: Regular Reason for Visit: Follow-up for severe malnutritionPer HPI: A 52 year old male was admitted from [facility]. He has cough,SOB and chest pain that started 2 weeks ago. He was treated for bilateralPE and had 08q30x4 cm right upper lobe abscess drained. He was DC'd onaugmentin and eliquis. Today patient presents with CP pleuritic in natureassociated with SOB, productive cough, fever, chills, and sweat. CXR andchest CT done at [facility] showed a 9x6, 4x9 loculated air fluid right upperlobe abscess.?Patient reports loss of appetite, fatigue and 14 poundsunintentional weight loss over a period of 1 month.Interval History: Percutaneous drain placement for right lung abscess wascompleted on 12/25 per interventional radiology note. Infectious disease isfollowing. Per resident note, patients cough is improving.ACTIVE PROBLEM LISTPain in Joint, Shoulder RegionPain in Joint, Upper ArmImpingement Syndrome of Right ShoulderAnxietyCounseling and Coordination of CareCellulitis and Abscess of Unspecified SiteGerd (Gastroesophageal Reflux Disease)Alcohol AbuseDiarrheaChange in Bowel HabitHistory of Esophagogastroduodenoscopy (Egd)Obesity, Class II, Bmi 35-39.9Lung Abscess (Hcc)Bipolar 1 Disorder (Hcc)Elevated Blood Pressure ReadingUnintentional Weight LossMediastinal LymphadenopathySinus TachycardiaThrombocytosis (Hcc)LeukocytosisMacrocytosis Without AnemiaPulmonary Embolism, Bilateral (Hcc)Severe Protein-Calorie Malnutrition (Hcc)PAST MEDICAL HISTORYDiagnosis Date- Bipolar 1 disorder (HCC)- GERD (gastroesophageal reflux disease)- Left elbow pain- Shoulder pain, rightPAST SURGICAL HISTORYProcedure Laterality Date- PAST SURGICAL HISTORY OF Right 1997 right wrist debridement (s/p infection of pins from repair)Present Diet Order: RegularNutritional Intake: <50% estimated energy need over the past 3 day(s).Patient reported that his appetite has improved some over the past fewdays. Patient stated that he ate 100% of buenrostro and eggs for breakfast thismorning even thought it isn't what he ordered. Patient feels that his POintake is best at breakfast time. He stated that he doesn't like theEnsure supplements or Magic cup. Willing to trial Ensure Clear apple.Admission Weight: 100.3 kg (221 lb 1.9 oz)Current Weight: 99.2 kg (218 lb 11.1 oz) -standing wt.Body mass index is 31.38 kg/m?. class 1 obesityCurrent Facility-Administered Medications:0.9% NaCl 10 mL 10 mL INTRAVENOUS q 12 H0.9% NaCl 20 mL 20 mL INTRAVENOUS PRNacetaminophen 650 mg tab(s) (TYLENOL) 650 mg ORAL q 6 H PRNapixaban 5 mg tab(s) (ELIQUIS) 5 mg ORAL BIDprenatal vitamin with folic acid 1 mg 1 tablet 1 tablet ORAL DAILYthiamine 100 mg tab(s) (VITAMIN B1) 100 mg ORAL TIDiv contrast (radiology procedure) INTRAVENOUS DIRECTED PRNcodeine-guaiFENesin 5 mL oral liquid (ROBITUSSIN AC) 5 mL ORAL q 6 H PRNbenztropine 0.5 mg tab(s) (COGENTIN) 0.5 mg ORAL BIDpropranolol 20 mg tab(s) (INDERAL) 20 mg ORAL BIDtraZODone 300 mg tab(s) (DESYREL) 300 mg ORAL AT BEDTIMEvenlafaxine ER 150 mg cap(s) (EFFEXOR XR) 150 mg ORAL DAILYpiperacillin-tazobactam 3.375 g in dextrose (iso-osmotic) 50 mL (ZOSYN)3.375 g INTRAVENOUS q 6 H0.9% NaCl 3-5 mL 3-5 mL INTRAVENOUS q [address] 40 mg tab(s) (PROTONIX) 40 mg ORAL DAILY (6 AM)lithium carbonate 1,200 mg cap(s) (ESKALITH) 1,200 mg ORAL DAILYQUEtiapine 200 mg tab(s) (SEROquel) 200 mg ORAL AT BEDTIMEIntake/Output 12/23/17 07 - 12/24/17 0659 12/24/17 07 - 12/25/17 0659 - 12/26/17 0659 12/26/17 07 - 12/27/17 0659 Intake (ml) 600 2808 1560 720 Output (ml) 800 503 548 230 Net (ml) -200 2305 1012 490MNT Billing Type: Re-assess/15 min 3 unitsSIGNATURE: FÉLIX YOON RD PATIENT NAME: Soraya BowserDATE: December 27, 2017 : 8:57 AM PAGER: [phone] Normal [facility] PROCEDUREon 12-27-2017 Protein mass conc HNO ID: [id number] thor: Niya EspinozaRn) VALARIE Butlerervice: PICC TeamAuthor Type: Registered NurseType: ProceduresFiled: 12/27/2017 11:37 AMNote Text:PICC NURSE INSERTION NOTEDATE OF PROCEDURE: December 27, 2017TIME OF PROCEDURE: 1040amORDERING PHYSICIAN: Jaja CONSENT: Obtained per hospital policy.INDICATION FOR LINE PLACEMENT: IV therapy over six daysCONDITION OF LINE PLACEMENT: SterilePRIMARY PROCEDURALIST: MADI TrianaSISTANT: N/APRE-PROCEDURE REVIEWALLERGIESNo Known AllergiesKnown History of Venous Thrombosis: NoKnown History of Permanent Pacemaker or Automated Implanted CardiacDevice: NoPrevious Breast Surgery of Lymph Node Dissection: NoHistory of Renal Disease with Arterio-Venous Fistula in Place or Planned:NoUltrasound Assessment Complete: YesPROCEDURE NARRATIVESAFE PRACTICEHand Hygiene per Hospital Policy: YesSkin Preparation Unit Dose Applicator Used: Chloraprep (CHG + alcohol),allowed to dry.Procedure Surface Cleansed with Antimicrobial Wipes: YesBarriers Used by Proceduralist and all Assisting Personnel: YesUNIVERSAL PROTOCOL / SAFETY CHECKLISTProcedure to be performed: piccSign in Communication: CompletedTime Out: Team Confirms the Correct Patient, Correct Procedure, CorrectSite and Site Marking, Correct Position (if applicable), Prep and Dry Time(if applicable). Time: 1040amAffirmation of Time Out: N/ASign Out Discussion: CompletedNiya Butler RNCATHETER PLACEMENTBrand: bard Lot: [id number] of Lumens: 1Type of PICC: Power Injectable PICCLumen Size: 4 FrenchPLACEMENT TECHNIQUELidocaine: Yes. Strength: 1% Volume 0.5ccModified Seldinger Technique Used to Place Line via the Left BasilicUltrasound Guidance: YesNumber of Attempts at Insertion: 1Internal Length: 49 cm External Length: 0 cm Trim Length: 49 cmMid-Arm Circumference Above Insertion Site: 34 centimetersPost Insertion Pain Level Related to Procedure: 0Action Taken to Address Pain: None neededVerified Placement: Blood return, Ultrasound and Tip location system ordevice indicates the tip is located in the SVC/CAJ.Line was Flushed with 20 cc normal salineLine Secured with: Securement device, statlockSterile Dressing Applied and Dated: YesSterile Caps on all Ports Prior to Leaving Procedure Area: YesSPECIMENS: NoneCOMPLICATIONS: NonePatient Education Materials: Placed in chartQUESTIONS or PROBLEMS: All aspects of CDC bundle observed for PICCinsertion.SIGNATURE: Niya Butler RN PATIENT NAME: Soraya BowserDATE: December 27, 2017 : 11:34 AM PAGER/CONTACT PHONE: Normal [facility] PROGRESSon 12-27-2017 Protein mass conc HNO ID: [id number] thor: Dragan Maciaservice: Thoracic SurgeryAuthor Type: PhysicianType: Progress NotesFiled: 12/27/2017 4:33 PMNote Text:For LahorraPatient seen, cxr ordered and reviewed, and careplan d/w resident Ze. Drainage thick and cxr improved will initiate tpa Rx and patient agrees.Culture NG.P-as ordered. Normal [facility] Protein mass conc HNO ID: [id number] thor: Malik (OSMANY Whitingervice: [facility] MedicineAuthor Type: ResidentType: Progress NotesFiled: 12/27/2017 3:48 PMNote Text: Attsha sam signed by Franklin Neely at 12/28/2017 9:31 PMI saw and evaluated the patient with med team rounds on 12/27/17. Discussed casewith the resident and agree with resident's findings and plan as documented inthe resident's note.Franklin Neely MD SERVICE DATE: 12/27/2017SERVICE TIME: 3:45 PMSPITAL MEDICINE PROGRESS NOTENIGHT AND WEEKEND COVERAGE: From 7am - 7pm, please call [phone] 7pm, please call cross cover pager #[phone] HPI: No ChangeToday the patient is still complaining of 5/10 mild pleuritic chest pain,his cough is improving kim SOB, he peed today Without any blood in thurine.OBJECTIVEBP 104/62 Pulse 81 Temp (Src) 98.1 (Oral) Resp 16 Ht 5' 10 (1.78m) Wt 218 lb 11.1 oz (99.2kg) SpO2 93% BMI 31.38 kg/(m2).Physical Exam Performed:GENERAL: GENERAL APPEARANCE NCCC: well appearing, alert and in no acutedistressHEART: HEART CCF: regular rate and rhythm, no murmer, gallop or rub,normal, S1, S2, no lifts, heaves, or thrills, PMI not displacedLUNGS: LUNGS CCF: clear to percussion and auscultation and no rales.tenderens in the right sideABDOMEN: ABDOMEN: Soft, nontender, bowel sounds normal, no palpableorganomegaly, no bruits.EXTREMITY: EXTREMITY EXAM: Normal exam of the extremities. No clubbing,cyanosis, or edema.Lines, Drains, and Airways Line Peripheral 12/23/17 2249 Left Antecubital 20 Gauge 3 days Central Line Single Lumen 12/27/17 1132 Peripherally Inserted (PICC) LeftArm Through Introducer 4.0 Somali less than 1 day Drain Drain/Tube 12/25/17 1321 Pigtail Right Medial Chest Drain #1 2 daysMedications: ReviewedDiagnostic tests reviewed:Most recent imagingRecent Labs 734 12/24/179957WBC 23.61* 20.78* 20.94*RBC 3.26* 3.29* 3.26*HB 11.1* 11.1* 11.1*HCT 32.5* 34.2* 33.0*PLT 478* 376* 394*MCV 99.7* 104.0* 101.2*MCH 34.0* 33.7* 34.0*MPV 9.2 9.4 9.2RDW 13.5 13.3 13.2METAMYELO -- -- 2.0Recent Labs 12/27/1806GLUC 92 76 90 98NA 135* 138 138 138K 3.7 3.6 3.6 3.4*CHLOR 104 106 107 103CO2 28 23 24 26CREAT 3.36* 3.03* 0.82 0.88BUN 17 15 4* 7ANION 7* 13 -- 12CA 8.8 8.5 8.7 8.5TPROT -- -- -- 6.9ALB -- -- 1.9* 2.3*TBILI -- -- -- 0.4ALKPHOS -- -- -- 170*AST -- -- -- 29ALT -- -- -- 46Most recent labsCARE COORDINATION:No Patient Care Coordination Note on file.ASSESSMENT AND PLANAssessment AND Plan, all Hosp ProblemsActive Hospital Problems as of 12/27/2017 Noted - Resolved Cardiovascular Pulmonary embolism, bilateral (HCC) 12/24/2017 - Present Current Assessment AND Plan - Continue Eliquis- UA analysis is positive for RBCs- Will keep continue eliquis for the history of bilateral PE. Elevated blood pressure reading 12/24/2017 - Present Current Assessment AND Plan - Continue to monitor BP- Suspect undiagnosed HTN Sinus tachycardia 12/24/2017 - Present Current Assessment AND Plan - Likely a reaction from infection/pain Pulmonary Lung abscess (HCC) 12/23/2017 - Present Current Assessment AND Plan - CT chest shows change from [id number] to 9X6.4X9.4cm loculated airfluid thin walled abscess in the right upper lobe, associated withmediastinal lymphadenopathy, which is consistent with anaerobic abscesshence anaerobic infection.- s/p IR drain 12/07 at OSH + GBS/ GCS/ Prevotella Oralis- WBC is 23- Urine toxicology is positive for opiates- IR drained the abscess- Abscess culture is negative for day 1, 2.- stop vancomycin and continue zosyn per ID (high vancomycin trough).- Continue antibiotics until 01/25- had a PICC line today.- MRSA nares is negative. Gastrointestinal Diarrhea 12/22/2016 - Present Current Assessment AND Plan - Stool lactoferrin and culture are pending- Celiac panel is pending- Stool culture and lactoferrin still pending.- Small suspicion for GI malignancy given hx of chronic diarrhea, weightloss, night sweats, fatigue and presence of bilateral PE.- CT abdomen didn't show any acute events- Consider GI consult if needed when stool results are back id needed. GERD (gastroesophageal reflux disease) 02/06/2015 - Present Current Assessment AND Plan - Continue home PPI Severe protein-calorie malnutrition (HCC) 12/24/2017 - Present Current Assessment AND Plan Nephrology SHARI (acute kidney injury) ([facility]) 12/27/2017 - Present Current Assessment AND Plan- Cr 3.3 (0.8 his baseline)- SHARI stage 3- will repeat UA- Check FeNA, renal US, urine eosinophiles- Adjust zosyn, lithium dose according to Cr clearance- Will consult nephrology Hematology Thrombocytosis (HCC) 12/24/2017 - Present Leukocytosis 12/24/2017 - Present Current Assessment AND Plan - Likely secondary to lung abscess. Macrocytosis without anemia 12/24/2017 - Present Current Assessment AND Plan - Likely due to alcohol abuse. Infectious Disease Mediastinal lymphadenopathy 12/24/2017 - Present Current Assessment AND Plan - Likely reactive from infection. Psychiatry Anxiety 02/13/2014 - Present Current Assessment AND Plan - Continue with Propanolol Alcohol abuse 03/17/2015 - Present Current Assessment AND Plan - Patient denied alcohol abuse.- CIWA will be implemented. Bipolar 1 disorder (HCC) 12/24/2017 - Present Current Assessment AND Plan - Continue [address] , Trazodone and Seroquel and Venlafaxine. Other Obesity, Class II, BMI 35-39.9 12/23/2017 - Present Current Assessment AND Plan - Counseled- will be followed up by PCP Unintentional weight loss 12/24/2017 - Present Current Assessment AND Plan - See plan for diarrhea as above.Medication and Non-Pharmacologic VTE Prophylaxis/AnticoagulantsAnti coagulant AND Antiplatelet Medications Start Dose Route Frequency Ordered Stop 12/26/17 0900 apixaban 5 mg tab(s) (ELIQUIS) 5 mg ORAL 2 TIMES DAILY 12/25/17 1728 --12/23/17 2300 vte pharmacologic prophylaxis contraindicated (fl,oh)12/23/17 2300 activity - mobilize patient (ct,oh)VTE Prophylaxis: VTE prophylaxis appropriatePlan of care discussed with: AttendingSIGNATURE: Malik Morales MD PATIENT NAME: Soraya BowserDATE: December 27, 2017 : 3:45 PM PAGER/CONTACT #: [phone] [facility] Protein mass conc HNO ID: [id number] thor: Dragan Shemar Maciaservice: Thoracic SurgeryAuthor Type: PhysicianType: Progress NotesFiled: 12/27/2017 5:23 PMNote Text:Thoracic Surgery Progress NoteSERVICE DATE: 12/27/2017SubjectiveSUBJECTIVE:N AEON. Has increased pain in R chest wall.Denies N/V/CP/SOBDiet: DIET REGULARObjectiveOBJECTIVE:Tuyet ls:Temp (24hrs), Av.9 ?C (98.4 ?F), Min:36.7 ?C (98.1 ?F), Max:37.1 ?C(98.8 ?F)BP 104/62 Pulse 81 Temp 36.7 ?C (98.1 ?F) (Oral) Resp 16 Ht177.8 cm (5' 10 ) Wt 99.2 kg (218 lb 11.1 oz) SpO2 93% BMI 31.38kg/m?O2 Therapy: Room AirIANDO:Date 12/26/17699 - 12/27/1765812/27/17699 - 12/28/17 0659Shift 6911-6035 2963-1118 4895-0306 24 Hour Total 4873-4844 9898-78381168-1811 24 Hour TotalINTAKE PO 620 620 800 800 PO 620 620 800 800 IV 100 100 Zosyn IV 100 100 Shift Total 620 100 720 800 800OUTPUT Urine 200 200 400 400 Void (ml) 200 200 400 400 Tubes 20 10 30 0 0 Drain/Tube Output (Drain/Tube 12/25/17 1321 Pigtail Right Medial ChestDrain #1) 20 10 30 0 0 Shift Total 20 210 230 400 400Weight (kg) 99.2 99.2 99.2 99.2 99.2 99.2 99.2 99.2MEDICATIONSCurrent Facility-Administered Medications:oxyCODONE-acetamin ophen 5-325 mg 1-2 tablet (PERCOCET) 1-2 tablet ORAL q 6H PRN0.9% NaCl 10 mL 10 mL INTRAVENOUS q 12 H0.9% NaCl 20 mL 20 mL INTRAVENOUS PRNacetaminophen 650 mg tab(s) (TYLENOL) 650 mg ORAL q 6 H PRNapixaban 5 mg tab(s) (ELIQUIS) 5 mg ORAL BIDprenatal vitamin with folic acid 1 mg 1 tablet 1 tablet ORAL DAILYthiamine 100 mg tab(s) (VITAMIN B1) 100 mg ORAL TIDiv contrast (radiology procedure) INTRAVENOUS DIRECTED PRNcodeine-guaiFENesin 5 mL oral liquid (ROBITUSSIN AC) 5 mL ORAL q 6 H PRNbenztropine 0.5 mg tab(s) (COGENTIN) 0.5 mg ORAL BIDpropranolol 20 mg tab(s) (INDERAL) 20 mg ORAL BIDvenlafaxine ER 150 mg cap(s) (EFFEXOR XR) 150 mg ORAL DAILYpiperacillin-tazobactam 3.375 g in dextrose (iso-osmotic) 50 mL (ZOSYN)3.375 g INTRAVENOUS q 6 H0.9% NaCl 3-5 mL 3-5 mL INTRAVENOUS q [address] 40 mg tab(s) (PROTONIX) 40 mg ORAL DAILY (6 AM)lithium carbonate 1,200 mg cap(s) (ESKALITH) 1,200 mg ORAL DAILYLabs:Recent Labs 12/25/1804NA 138 138K 3.6 3.6CHLOR 106 107CO2 23 24BUN 15 4*CREAT 3.03* 0.82GLUC 76 90ANION 13 --CA 8.5 8.7P -- 2.5ALB -- 1.9*WBC 23.61* 20.78*HB 11.1* 11.1*HCT 32.5* 34.2*PLT 478* 376*Exam:GENERAL: No distress, AlertNEURO: AANDOx3, no focal deficitsHEENT: normocephalic, atraumaticLUNGS: Unlabored breathing O2 Therapy: Room Air, decreased air movement inRUL per auscultation. Pleurevac has no output in cannister or tube.CARDIAC: Regular rate and rhythm as aboveEXTREMITIES: LOPEZ, No deformities, No edemaSKIN: Skin color, texture, turgor normal, No rashes or lesionsASSESSMENT AND PLAN:Active Hospital Problems Diagnosis Date Noted- Pulmonary embolism, bilateral ([facility]) 12/24/2017 Priority: A- Lung abscess ([facility]) 12/23/2017 Priority: A- Diarrhea 12/22/2016 Priority: L Overview Note: Added automatically from request for surgery [id number]- Bipolar 1 disorder ([facility]) 12/24/2017- Elevated blood pressure reading 12/24/2017- Unintentional weight loss 12/24/2017- Mediastinal lymphadenopathy 12/24/2017- Sinus tachycardia 12/24/2017- Thrombocytosis ([facility]) 12/24/2017- Leukocytosis 12/24/2017- Macrocytosis without anemia 12/24/2017- Severe protein-calorie malnutrition ([facility]) 12/24/2017- Obesity, Class II, BMI 35-39.9 12/23/2017- Alcohol abuse 03/17/2015- GERD (gastroesophageal reflux disease) 02/06/2015- Anxiety 02/13/[birth year]89 year old male with recurrent R lung abscess?- management per primary- chest CT 12/23 - 9.0 x 6.4 x 9.6 cm RUL lung abscess, RULatelectasis/fibrosis, mediastinal adenopathy- ID recs - cont vanc/zosyn- MRSA negative- IR drain placed with 10fr (12/25), originally on suction bulb, changed topleurevac 12/26. - no output in tube or cannister, likely blocked. - will consult IR again for a larger tube.- pulm recs- hx Pes on Eliquis- Imaging requested for first incident of abscess in Nov at [facility].No records as of the AM (12/27)Assessment and plan discussed with attending: Dr. JohnsonATURE: Wilfred Gamboa MD PATIENT NAME: Soraya LaoTE: December 27, 2017 : 11:27 AM Pager: [phone] also my note of today. Patient should not be on Eliquis right nowwith pleural drain and need for tpa Rx via tube. Normal [facility] Protein Electrophoresis, Ser umon 12-27-2017 Protein mass conc SEE BELOW Normal [facility] Comment on above: Result Comment: Tota l Protein, SPE 5.8 L 6.0-8.4 g/dLAlbumin 2.28 L 3.37-4.23 gm/dLAlpha 1 Globulin 0.42 H 0.18-0.31 gm/dLAlpha 2 Globulin 1.20 H 0.52-0.97 gm/dLBeta Globulin 0.89 0.84-1.36 gm/dLGamma Globulin 1.02 0.70-1.44 gm/dLInterpretation SEE BELOWNo definitive M protein is identified on protein electrophoresis.M Protein Location N/AM Chilo Concentratn 0.00 0.00 gm/dLSPE Staff Review SEE BELOWReviewed by Adam Ortega M.D., PhD ([id number])Performing Laboratory:[facility] [id number] [place] [address] Performed By: #### P 14 ####[address] [address] Sodium,Urineon 12-27-2017 Sodium,Urine 20 mEq/L Normal [facility] Comment on above: Performed By: #### G FR ####[address] [address] Urinalysis Routineon 018 Bacteria LM.HPF #/area (Urine sed) NONE Normal None [facility] Comment on above: Performed By: #### P 14 ####[address] [address] Ep Cells Urine 0.9 /hpf Normal 0.0-5.0 [facility] Comment on above: Performed By: #### P 14 ####[address] [address] Hyaline Cast 0.0 /lpf Normal 0.0-1.0 [facility] Comment on above: Performed By: #### P 14 ####[address] [address] RBC,Urine 0.8 /hpf Normal 0.0-5.0 [facility] Comment on above: Performed By: #### P 14 ####[facility] [place], [place] [address] WBC, Urine 1.4 /hpf Normal 0.0-5.0 [facility] Comment on above: Performed By: #### P 14 ####[facility] [place], [place] [address] Appearance Nom (U) CLEAR Normal [facility] Comment on above: Performed By: #### P 14 ####[address] [address] Bilirubin Urine Negative Normal Negative [facility] Comment on above: Performed By: #### P 14 ####[address] [address] Color Nom (U) YELLOW Normal [facility] Comment on above: Performed By: #### P 14 ####[address] [address] Glucose Ql (U) Negative Normal Negative [facility] Comment on above: Performed By: #### P 14 ####[address] [address] Hemoglobin,Urine Negative Normal Negative [facility] Comment on above: Performed By: #### P 14 ####[address] [address] Ketone Urine Negative Normal Negative [facility] Comment on above: Performed By: #### P 14 ####[address] [address] Leukocytes Esterase Negative Normal Negative [facility] Comment on above: Performed By: #### P 14 ####[address] [address] Nitrites Urine Negative Normal Negative [facility] Comment on above: Performed By: #### P 14 ####[address] [address] pH Test strip (U) 6.5 [pH] Normal 5.0-8.0 [facility] Comment on above: Performed By: #### P 14 ####[address] [address] Protein Urine Negative Normal Negative [facility] Comment on above: Performed By: #### P 14 ####[facility] [place], [place] [address] Specific [place], Ur 1.007 Normal 1.005-1.030 [facility] Comment on above: Performed By: #### P 14 ####[facility] [place], [place] [address] Urobilinogen,Ur 0.2 EU/dL Normal 0.0-1.0 [facility] Comment on above: Performed By: #### P 14 ####[facility] [place] [id number] ALLIED HEALTHon 12-26-2017 ALLIED HEALTH HNO ID: [id number] thor: RANDI Benson Lpnervice: Home Care ServicesAuthor Type: LICENSED NURSEType: Allied HealthFiled: 12/26/2017 2:31 PMNote Text:SIEBEL ADMINISTRATOR NOTESERVICE DATE: 12/26/2017SERVICE TIME: 1431Per [facility] eligible for HHC and HIP ATB payable at 100%.SIGNATURE: Mera Urrutia LPN PATIENT NAME: Soraya BowserDATE: December 26, 2017 : 2:31 PM Normal [facility] CASE MGT INIT ASSESon 2017 CASE MGT INIT AERTHA HNO ID: [id number]: Kaila (Rn) VALARIE Sarmientoervice: Care ManagementAuthor Type: Registered NurseType: Care Mgt Initial AssessmentFiled: 12/26/2017 11:53 AMNote Text:CARE MANAGEMENT: ASSESSMENT AND DISCHARGE PLANSERVICE DATE: 12/26/2017SERVICE TIME: 11:42 AMPRIMARY CARE PHYSICIAN:Aleida Chavez, TRIPhone: [id number] STATUS: [facility] [place]MED[facility]:Patient/Represe ntative Stated Goals:To return home to life as it wasTo be cured/healedHealth Insurance: [facility] MEDICAIDNoneHealth Issues Impacting Discharge Plan: Lung abscessLast Admission Date: Previous admit date: 05/05/2015Is this Within the Past 30 days? PE, Lung AbscessAdvance Directive: No - DeclinesHealth Literacy:1. How often do you need to have someone help you when you readinstructions, pamphlets, or other written material from your doctor orpharmacy? Rarely - 22. How confident are you filling out medical forms by yourself? Quite abit - 2If Patient scores > 3 on either question, the following interventions wereput into place:Patient did not score > 3FUNCTIONAL AND COGNITIVE/BEHAVIORALPRIOR TO ADMISSION:Baseline Mental Status: Alert AND Oriented, Person, Place , Time andSituationFunctional Status: IndependentDoes Patient Currently Receive Any Community Services or Home Care?CounselingEquipment Prior to Admission: NoneHas the Patient Been in a Assisted Facility in the Past 30 days? NoSOCIAL:Living Arrangement: Home - Apt 1 levelLives With: AloneFinancial Resources: DisabledPrimary Contact: Extended Emergency Contact InformationPrimary Emergency Contact: Ben Doyle Injvsmod: Significant otherSupportive: YesOther Important Patient Contacts: NoneCaregiver Assessment:Caregiver is ready, willing and able to meet the patient's needs asrecommended by the inter-professional team? No Caregiver NeededPatient's transition needs and plan for meeting these needs: HomeDoes the patient have an acute stroke diagnosis, or has the patient had astroke during this admission? NoMedication Adherence:I am convinced of the importance of my prescription medication: Agreecompletely - 0I worry that my prescription medication will do more harm than good to meDisagree completely - 0I feel financially burdened by my cah-he-yxnmlu expenses for myprescription medication: Disagree mostly -0Patient is categorized as low risk < 2Are you interested in bedside delivery of your medications? NoFood Concerns:In the Last Month, Have You had Trouble Getting Food? No trouble gettingfoodDuring the Last Month, Have You Worried Whether Your Food Would Run OutBefore You Had Enough Money to Buy More? NoIs the Patient Psychosocially Complex? NoASSESSMENT AND PLAN:Medical Needs: IV AntibioticsPsychosocial Needs: NoneFREEDOM OF CHOICE EXPLAINED:Financial Disclosure Provided - VNS is choicePOTENTIAL TRANSITION PLANSHomeHome CareLives alone in single story apt. 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 S.O. Juan Ramon drives to appts. NoDME's. (+) PCP. Will need alf IV ABX. PICC to be placed today. VNSreferral made. Will likely need transportation home at discharge.Agreeable to ambulette.SIGNATURE: Kaila Sarmiento RN PATIENT NAME: Soraya BowserDATE: December 26, 2017 : 11:34 AM PAGER/CONTACT #: [phone] [facility] CONSULT PROGon 12-26-2017 Protein mass conc HNO ID: [id number] thor: Tenzin Fullerervice: Infectious DiseaseAuthor Type: PhysicianType: Consult Progress NoteFiled: 12/26/2017 4:12 PMNote Text:INFECTIOUS DISEASE PROGRESS NOTEPatient Name: Soraya Bowser Date: 12/26/2017ASSESSMENT:1. Sepsis 2/2 # 22. Right Upper Lobe Loculated Lung Abscess -- s/p IR drain 12/07 at OSH + GBS/ GCS/ Prevotella Oralis -- s/p repeat aspirate CCAG 12/25/17 -- likely aspiration related v/s complicated CAP3. Leukocytosis4. Fever/ Chills5. Dyspnea/ Chest Pain6. Ac on Chronic AnemiaPLAN:Keep zosynStop vancoAwait PICC LineF/U Final CulturesLikely iv abx till 01/25/18INTERVAL HISTORY: S/p IR guided drainage R lung abscess 12/25 . No f/c/n/v/d. Continues to have cough, improving. Abscess cx NGTD MRSA nares neg. Awaiting PICC placementMEDICATIONS: reviewed.Current hospital medications:acetaminophen 650 mg tab(s) (TYLENOL) 650 mg ORAL q 6 H PRNapixaban 5 mg tab(s) (ELIQUIS) 5 mg ORAL BIDvancomycin 1.25 g in D5W 250 mL (VANCOCIN) 1.25 g INTRAVENOUS q 12 HRLORazepam 2 mg (ATIVAN) 2 mg ORAL q 1 H PRNLORazepam 2 mg injection (ATIVAN) 2 mg INTRAVENOUS q 1 H PRNLORazepam 4 mg (ATIVAN) 4 mg ORAL q 1 H PRNLORazepam 4 mg injection (ATIVAN) 4 mg INTRAVENOUS q 1 H PRNprenatal vitamin with folic acid 1 mg 1 tablet 1 tablet ORAL DAILYthiamine 100 mg tab(s) (VITAMIN B1) 100 mg ORAL TIDiv contrast (radiology procedure) INTRAVENOUS DIRECTED PRNcodeine-guaiFENesin 5 mL oral liquid (ROBITUSSIN AC) 5 mL ORAL q 6 H PRNbenztropine 0.5 mg tab(s) (COGENTIN) 0.5 mg ORAL BIDpropranolol 20 mg tab(s) (INDERAL) 20 mg ORAL BIDtraZODone 300 mg tab(s) (DESYREL) 300 mg ORAL AT BEDTIMEvenlafaxine ER 150 mg cap(s) (EFFEXOR XR) 150 mg ORAL DAILYpiperacillin-tazobactam 3.375 g in dextrose (iso-osmotic) 50 mL (ZOSYN)3.375 g INTRAVENOUS q 6 H0.9% NaCl 3-5 mL 3-5 mL INTRAVENOUS q [address] 40 mg tab(s) (PROTONIX) 40 mg ORAL DAILY (6 AM)lithium carbonate 1,200 mg cap(s) (ESKALITH) 1,200 mg ORAL DAILYQUEtiapine 200 mg tab(s) (SEROquel) 200 mg ORAL AT BEDTIMEPHYSICAL EXAM:Vital signs: BP 109/59 Pulse 94 Temp 36.4 ?C (97.5 ?F) (TemporalArtery) Resp 16 Ht 177.8 cm (5' 10 ) Wt 99.2 kg (218 lb 11.1 oz) SpO2 93% BMI 31.38 kg/m?General: alert, oriented, NADLungs: b/l rhonchi better, R post lung drainHeart: regular rate and rhythmAbdomen: soft, non tender, non distended, BS+Extremities: no swollen jointsSkin: no rashIV sites - wnlLab data: reviewedRecent Labs [id number] 12/24/179957WBC 20.78* 20.94*HB 11.1* 11.1*PLT 376* 394*NA 138 138K 3.6 3.4*CO2 24 26BUN 4* 7CREAT 0.82 0.88AST -- 29ALT -- 46TBILI -- 0.4ALKPHOS -- 170*LACT -- 0.7Microbiology data:12/25 Abscess cx: ngtdMRSA nares negImaging data: José Antonio Conner NP-CPinnac Infectious Disease SpecialistsEast Port [place] :49 PM++++++++++++++++++++++++++++ ++++++++++++++++++++++++++++++ +++++++++Above reflects my direct input except for changes as amended. Revieweddata independently.Tenzin Cantrell MD12/26/20174:12 PM Normal [facility] NURSING PROGon 12-26-2017 Protein mass conc HNO ID: [id number] Author: Cornelia (Rn) MARYSOL Mahmood Service: Nursing Author Type: Registered Nurse Type: Nursing Progress Note Filed: 12/27/2017 6:36 PM Note Text: Records requested from [facility]. Normal [facility] PROGRESSon 12-26-2017 Protein mass conc HNO ID: [id number] thor: OSMANY Cardoza [facility] Type: ResidentType: Progress NotesFiled: 12/26/2017 4:09 PMNote Text: Attsah sam signed by Franklin Neely at 12/28/2017 9:33 PMI saw and evaluated the patient with med team rounds on 12/26/17. Discussed casewith the resident and agree with resident's findings and plan as documented inthe resident's note.Franklin Neely MD SERVICE DATE: 12/26/2017SERVICE TIME: 4:07 PMHOSPITAL MEDICINE PROGRESS NOTENIGHT AND WEEKEND COVERAGE: From 7am - 7pm, please call [phone] 7pm, please call cross cover pager #[phone] HPI: ImprovedToday his cough is improving, still have pleuritic chest pain on the rightside and discomfort at the procedure site. He had another episode ofpinkish urine overnight. Afebrile. No SOB.OBJECTIVEBP 97/79 Pulse 95 Temp (Src) 98.1 (Oral) Resp 16 Ht 5' 10 (1.78m) Wt 218 lb 11.1 oz (99.2kg) SpO2 92% BMI 31.38 kg/(m2).Physical Exam Performed:GENERAL: GENERAL APPEARANCE NCCC: well appearing, alert and in no acutedistressHEART: HEART CCF: regular rate and rhythm, no murmer, gallop or rub,normal, S1, S2, no lifts, heaves, or thrills, PMI not displacedLUNGS: LUNGS CCF: clear to percussion and auscultation and no ralesABDOMEN: ABDOMEN: Soft, nontender, bowel sounds normal, no palpableorganomegaly, no bruits.EXTREMITY: EXTREMITY EXAM: Normal exam of the extremities. No clubbing,cyanosis, or edema.Lines, Drains, and Airways Line Peripheral 12/23/17 2249 Left Antecubital 20 Gauge 2 days Drain Drain/Tube 12/25/17 1321 Jeremiah Andersen Right Medial Chest Drain #1 1 dayMedications: ReviewedDiagnostic tests reviewed:Most recent imagingRecent Labs 12/24/1799WBC 20.78* 20.94*RBC 3.29* 3.26*HB 11.1* 11.1*HCT 34.2* 33.0*PLT 376* 394*MCV 104.0* 101.2*MCH 33.7* 34.0*MPV 9.4 9.2RDW 13.3 13.2METAMYELO -- 2.0Recent Labs 12/24/1799GLUC 90 98NA 138 138K 3.6 3.4*CHLOR 107 103CO2 24 26CREAT 0.82 0.88BUN 4* 7ANION -- 12CA 8.7 8.5TPROT -- 6.9ALB 1.9* 2.3*TBILI -- 0.4ALKPHOS -- 170*AST -- 29ALT -- 46Most recent labsCARE COORDINATION:No Patient Care Coordination Note on file.ASSESSMENT AND PLANAssessment AND Plan, all Hosp ProblemsActive Hospital Problems as of 12/26/2017 Noted - Resolved Cardiovascular Pulmonary embolism, bilateral (HCC) 12/24/2017 - Present Current Assessment AND Plan - Continue Eliquis- UA analysis is positive for RBCs- Will keep continue eliquis for the history of bilateral PE. Elevated blood pressure reading 12/24/2017 - Present Current Assessment AND Plan - Continue to monitor BP- Suspect undiagnosed HTN Sinus tachycardia 12/24/2017 - Present Current Assessment AND Plan - Likely a reaction from infection/pain Pulmonary Lung abscess (HCC) 12/23/2017 - Present Current Assessment AND Plan - CT chest shows change from 13U67O1dh to 9X6.4X9.4cm loculated airfluid thin walled abscess in the right upper lobe, associated withmediastinal lymphadenopathy, which is consistent with anaerobic abscesshence anaerobic infection.- s/p IR drain 12/07 at OSH + GBS/ GCS/ Prevotella Oralis- WBC is 20.7- Urine toxicology is positive for opiates- IR drained the abscess, on drain- Culture is negative for day 1.- ID consulted, they recommend to continue vancomycin and zosyn.- Vancomycin trough 23.3, ID is following- Scheduled for PICC line today.- MRSA nares is negative. Gastrointestinal Diarrhea 12/22/2016 - Present Current Assessment AND Plan - Stool lactoferrin and culture are pending- Celiac panel is pending- Stool culture and lactoferrin still pending.- Small suspicion for GI malignancy given hx of chronic diarrhea, weightloss, night sweats, fatigue and presence of bilateral PE.- CT abdomen didn't show any acute events- Consider GI consult if needed when stool results are back id needed. GERD (gastroesophageal reflux disease) 02/06/2015 - Present Current Assessment AND Plan - Continue home PPI Severe protein-calorie malnutrition (HCC) 12/24/2017 - Present Current Assessment AND Plan Hematology Thrombocytosis (HCC) 12/24/2017 - Present Leukocytosis 12/24/2017 - Present Current Assessment AND Plan - Likely secondary to lung abscess. Macrocytosis without anemia 12/24/2017 - Present Current Assessment AND Plan - Likely due to alcohol abuse. Infectious Disease Mediastinal lymphadenopathy 12/24/2017 - Present Current Assessment AND Plan - Likely reactive from infection. Psychiatry Anxiety 02/13/2014 - Present Current Assessment AND Plan - Continue with Propanolol Alcohol abuse 03/17/2015 - Present Current Assessment AND Plan - Patient denied alcohol abuse.- CIWA will be implemented. Bipolar 1 disorder (HCC) 12/24/2017 - Present Current Assessment AND Plan - Continue [address] , Trazodone and Seroquel and Venlafaxine. Other Obesity, Class II, BMI 35-39.9 12/23/2017 - Present Current Assessment AND Plan - Counseled- will be followed up by PCP Unintentional weight loss 12/24/2017 - Present Current Assessment AND Plan - See plan for diarrhea as above.Medication and Non-Pharmacologic VTE Prophylaxis/AnticoagulantsAnti coagulant AND Antiplatelet Medications Start Dose Route Frequency Ordered Stop 12/26/17 0900 apixaban 5 mg tab(s) (ELIQUIS) 5 mg ORAL 2 TIMES DAILY 12/25/17 1728 --12/23/17 2300 vte pharmacologic prophylaxis contraindicated (ct,pa)12/23/17 2300 activity - mobilize patient ([place])VTE Prophylaxis: VTE prophylaxis appropriatePlan of care discussed with: AttendingSIGNATURE: Malik Morales MD PATIENT NAME: Soraya BowserDATE: December 26, 2017 : 4:07 PM PAGER/CONTACT #: [phone] Normal [facility] Protein mass conc HNO ID: [id number] thor: Dragan Maciaservice: Thoracic SurgeryAuthor Type: PhysicianType: Progress NotesFiled: 12/26/2017 12:44 PMNote Text:Thoracic Surgery Progress NoteSERVICE DATE: 12/26/2017SubjectiveSUBJECTIVE:N AEON. Walking halls this morning. No complaints.Denies N/V/CP/SOBDiet: DIET REGULARObjectiveOBJECTIVE:Tuyet ls:Temp (24hrs), Av.1 ?C (98.7 ?F), Min:36.4 ?C (97.5 ?F), Max:37.5 ?C(99.5 ?F)BP 109/59 Pulse 94 Temp 36.4 ?C (97.5 ?F) (Temporal Artery) Resp16 Ht 177.8 cm (5' 10 ) Wt 99.2 kg (218 lb 11.1 oz) SpO2 93% BMI 31.38 kg/m?O2 Therapy: Room AirIANDO:Date 12/25/17 07 - 12/26/17 0659 12/26/17699 - 12/27/17 0659Shift 0128-5742 9074-3758 7551-9228 24 Hour Total 1160-6974 [id number] 24 Hour TotalINTAKE PO 390 1170 1560 620 620 PO 390 1170 1560 620 620 Shift Total 390 1170 1560 620 620OUTPUT Urine 1 502 503 Void (ml) 500 500 Urine Not Saved 1 2 3 Tubes 30 15 45 20 20 Drain/Tube Output (Drain/Tube 12/25/17 1321 Jeremiah Andersen Right MedialChest Drain #1) 30 15 45 20 20 Shift Total 31 517 548 20 20Weight (kg) 98.2 98.2 98.2 98.2 99.2 99.2 99.2 99.2MEDICATIONSCurrent Facility-Administered Medications:acetaminophen 650 mg tab(s) (TYLENOL) 650 mg ORAL q 6 H PRNapixaban 5 mg tab(s) (ELIQUIS) 5 mg ORAL BIDvancomycin 1.25 g in D5W 250 mL (VANCOCIN) 1.25 g INTRAVENOUS q 12 HRLORazepam 2 mg (ATIVAN) 2 mg ORAL q 1 H PRNOrLORazepam 2 mg injection (ATIVAN) 2 mg INTRAVENOUS q 1 H PRNLORazepam 4 mg (ATIVAN) 4 mg ORAL q 1 H PRNOrLORazepam 4 mg injection (ATIVAN) 4 mg INTRAVENOUS q 1 H PRNprenatal vitamin with folic acid 1 mg 1 tablet 1 tablet ORAL DAILYthiamine 100 mg tab(s) (VITAMIN B1) 100 mg ORAL TIDiv contrast (radiology procedure) INTRAVENOUS DIRECTED PRNcodeine-guaiFENesin 5 mL oral liquid (ROBITUSSIN AC) 5 mL ORAL q 6 H PRNbenztropine 0.5 mg tab(s) (COGENTIN) 0.5 mg ORAL BIDpropranolol 20 mg tab(s) (INDERAL) 20 mg ORAL BIDtraZODone 300 mg tab(s) (DESYREL) 300 mg ORAL AT BEDTIMEvenlafaxine ER 150 mg cap(s) (EFFEXOR XR) 150 mg ORAL DAILYpiperacillin-tazobactam 3.375 g in dextrose (iso-osmotic) 50 mL (ZOSYN)3.375 g INTRAVENOUS q 6 H0.9% NaCl 3-5 mL 3-5 mL INTRAVENOUS q [address] 40 mg tab(s) (PROTONIX) 40 mg ORAL DAILY (6 AM)lithium carbonate 1,200 mg cap(s) (ESKALITH) 1,200 mg ORAL DAILYQUEtiapine 200 mg tab(s) (SEROquel) 200 mg ORAL AT BEDTIMELabs:Recent Labs 12/24/1799NA 138 138K 3.6 3.4*CHLOR 107 103CO2 24 26BUN 4* 7CREAT 0.82 0.88GLUC 90 98ANION -- 12CA 8.7 8.5P 2.5 --ALB 1.9* 2.3*AST -- 29ALT -- 46ALKPHOS -- 170*TBILI -- 0.4WBC 20.78* 20.94*HB 11.1* 11.1*HCT 34.2* 33.0*PLT 376* 394*LACT -- 0.7Exam:GENERAL: No distress, AlertNEURO: AANDOx3, CN II-XII grossly intactHEENT: normocephalic, atraumaticLUNGS: Unlabored breathing O2 Therapy: Room AirCARDIAC: Regular rate and rhythm as aboveABDOMEN: Soft, non-tender, non-distendedEXTREMITIES: LOPEZ, No deformities, No edemaSKIN: Skin color, texture, turgor normal, No rashes or lesionsASSESSMENT AND PLAN:Active Hospital Problems Diagnosis Date Noted- Pulmonary embolism, bilateral (HCC) 12/24/2017 Priority: A- Lung abscess (HCC) 12/23/2017 Priority: A Assessment AND Plan Note: - CT chest shows change from 76X73R5ma to 9X6.4X9.4cm loculated airfluid thin walled abscess in the right upper lobe, associated withmediastinal lymphadenopathy, which is consistent with anaerobic abscesshence anaerobic infection.- s/p IR drain 12/07 at OSH + GBS/ GCS/ Prevotella Oralis- WBC is 20.7- Urine toxicology is positive for opiates- Thoracic surgery consulted, They recommend to continue antibioticsaccording to ID and IR drainage- IR drained the abscess, on drain, they send culture and stain- ID consulted, they recommend to continue vancomycin and zosyn. They willplace PICC on Tuesday.- MRSA nares is still pending- We held the morning Eliquis dose for the procedure.- Diarrhea 12/22/2016 Priority: L Overview Note: Added automatically from request for surgery [id number]- Bipolar 1 disorder ([facility]) 12/24/2017- Elevated blood pressure reading 12/24/2017- Unintentional weight loss 12/24/2017- Mediastinal lymphadenopathy 12/24/2017- Sinus tachycardia 12/24/2017- Thrombocytosis ([facility]) 12/24/2017- Leukocytosis 12/24/2017- Macrocytosis without anemia 12/24/2017- Severe protein-calorie malnutrition ([facility]) 12/24/2017- Obesity, Class II, BMI 35-39.9 12/23/2017- Alcohol abuse 03/17/2015- GERD (gastroesophageal reflux disease) 02/06/2015- Anxiety [birth year]89 year old male with recurrent R lung abscess?- management per primary- chest CT 12/23 - 9.0 x 6.4 x 9.6 cm RUL lung abscess, RULatelectasis/fibrosis, mediastinal adenopathy- ID recs - cont vanc/zosyn- MRSA negative- IR drain placed yesterday, KATHY drain with 45 SS output.- pulm recs- hx Pes on Eliquis- Imaging requested for first incident of abscess in Nov at [facility] and plan discussed with attending: Dr. JohnsonATURE: Wilfred Gamboa MD PATIENT NAME: Soraya BowserDATE: December 26, 2017 : 11:25 AM Pager: [phone] seen and x-rays reviewed and case d/w JAL and residents. Patientupdated at bedside.P-convert drain to pleureyac suction at [id number]. Normal [facility] BRIEF OP NOTon 12-25-2017 BRIEF OP NOT HNO ID: [id number] thor: Bruce Freemanervice: Interventional RadiologyAuthor Type: PhysicianType: Brief Op NoteFiled: 12/25/2017 12:58 PMNote Text:INTERVENTIONAL RADIOLOGYPOST PROCEDURE NOTEDATE: 12/25/17NAME: Soraya BowserMRN: [id number] ID: [id number] Diagnosis: Right lung abscess.Post Procedure Diagnosis: Same.Pediatric Psychologist: TRIP Cooneyrocedure: Percutaneous drain placement.Anesthesia: Procedural SedationFindings: 10-F nonlocking pigtail catheter into a right intraparenchymallung abscess.Estimated Blood Loss: Minimal (Less Than 25 mL).Specimen: Fluid sample for cultures.Complications: None.Full report with procedural details to follow and will become availableunder Imaging Reports. Please contact for any questions or concerns.Bruce Kaur MDInterventional RadiologyPager: [phone] [facility] CONSULT PROGon 12-25-2017 Protein mass conc HNO ID: [id number] thor: Tenzin Fullerervice: Infectious DiseaseAuthor Type: PhysicianType: Consult Progress NoteFiled: 12/25/2017 3:05 PMNote Text:INFECTIOUS DISEASE PROGRESS NOTEPatient Name: Soraya Bowser Date: 12/25/2017ASSESSMENT:1. Sepsis 2/2 # 22. Right Upper Lobe Loculated Lung Abscess -- s/p IR drain 12/07 at OSH + GBS/ GCS/ Prevotella Oralis -- s/p repeat aspirate CCAG 12/25/17 -- likely aspiration related v/s complicated CAP3. Leukocytosis4. Fever/ Chills5. Dyspnea/ Chest Pain6. Ac on Chronic AnemiaPLAN:Keep jeanetteo, pbsynAfabricio cx datapicc tuesdayINTERVAL HISTORY:ROS done with pt/RN and negative unless stated. s/p IR guided drainage Rlung abscess. No f/c/n/v/d. Less cough.MEDICATIONS: reviewed.Current hospital medications:LORazepam 2 mg (ATIVAN) 2 mg ORAL q 1 H PRNLORazepam 2 mg injection (ATIVAN) 2 mg INTRAVENOUS q 1 H PRNLORazepam 4 mg (ATIVAN) 4 mg ORAL q 1 H PRNLORazepam 4 mg injection (ATIVAN) 4 mg INTRAVENOUS q 1 H PRNprenatal vitamin with folic acid 1 mg 1 tablet 1 tablet ORAL DAILYfolic acid 1 mg tab(s) 1 mg ORAL DAILYthiamine 100 mg tab(s) (VITAMIN B1) 100 mg ORAL TIDiv contrast (radiology procedure) INTRAVENOUS DIRECTED PRNcodeine-guaiFENesin 5 mL oral liquid (ROBITUSSIN AC) 5 mL ORAL q 6 H PRNbenztropine 0.5 mg tab(s) (COGENTIN) 0.5 mg ORAL BIDpropranolol 20 mg tab(s) (INDERAL) 20 mg ORAL BIDtraZODone 300 mg tab(s) (DESYREL) 300 mg ORAL AT BEDTIMEvenlafaxine ER 150 mg cap(s) (EFFEXOR XR) 150 mg ORAL DAILYpiperacillin-tazobactam 3.375 g in dextrose (iso-osmotic) 50 mL (ZOSYN)3.375 g INTRAVENOUS q 6 H0.9% NaCl 3-5 mL 3-5 mL INTRAVENOUS q [address] 40 mg tab(s) (PROTONIX) 40 mg ORAL DAILY (6 AM)apixaban 5 mg tab(s) (ELIQUIS) 5 mg ORAL BIDlithium carbonate 1,200 mg cap(s) (ESKALITH) 1,200 mg ORAL DAILYQUEtiapine 200 mg tab(s) (SEROquel) 200 mg ORAL AT BEDTIMEvancomycin 1.5 g in D5W 250 mL (VANCOCIN) 0.015 g/kg/dose INTRAVENOUS q 12HRPHYSICAL EXAM:Vital signs: BP 134/79 Pulse 95 Temp 36.7 ?C (98.1 ?F) (Oral) Resp 20 Ht 177.8 cm (5' 10 ) Wt 98.2 kg (216 lb 8 oz) SpO2 94% BMI 31.06 kg/m?Temp (24hrs), Av.2 ?C (99 ?F), Min:36.7 ?C (98.1 ?F), Max:37.8 ?C (100?F)General: alert, oriented, NADLungs: b/l rhonchi better, R post lung drainHeart: regular rate and rhythmAbdomen: soft, non tender, non distended, BS+Extremities: no swollen jointsSkin: no rashIV sites - wnlLab data: reviewedRecent Labs 12/24/179957WBC 20.78* 20.94*HB 11.1* 11.1*PLT 376* 394*NA 138 138K 3.6 3.4*CO2 24 26BUN 4* 7CREAT 0.82 0.88AST -- 29ALT -- 46TBILI -- 0.4ALKPHOS -- 170*LACT -- 0.7Microbiology data: reviewedImaging data: reviewedTenzin Cantrell, TRIPager: Normal [facility] Cult and Smr MINDY and AERon 0 12-25-2017 Cult and Smr MINDY and AER Test performed at [facility] Moderate Mixed anaerobic lavelle. No further identification to follow. Plates will be held for 5 days. No aerobic organisms cultured Many WBC No organisms seen Normal [facility] Comment on above: Performed By: #### P 14 ####[place] [address] HIV Screenon 12-25-2017 HIV Screen Negative Normal Nonreactive [facility] Comment on above: Performed By: #### U RIN ####[place] [address] Hemogram/Diffon 12-25-2017 Abs Immature Grans 0.35 thou/cmm High 0.00-0.05 [facility] Comment on above: Performed By: #### U RIN ####[place] [address] Abs. Baso 0.15 thou/cmm High 0.01-0.08 [facility] Comment on above: Performed By: #### U RIN ####[place] [address] Abs. [place] 2.29 thou/cmm High 0.30-0.82 [facility] Comment on above: Performed By: #### U RIN ####[place] [address] Abs. Neut (ANC) 15.23 thou/cmm High 1.78-5.38 [facility] Comment on above: Performed By: #### U RIN ####[facility] [place], [place] [address] Basophils/100 WBC Auto (Bld) 0.7 % Normal [facility] Comment on above: Performed By: #### U RIN ####[facility] [place], [place] [address] Eosinophils Auto #/vol (Bld) 0.54 thou/cmm Normal 0.04-0.54 [facility] Comment on above: Performed By: #### U RIN ####[address] [address] Eosinophils/100 WBC Auto (Bld) 2.6 % Normal [facility] Comment on above: Performed By: #### U RIN ####[address] [address] Immature Grans 1.70 % Normal [facility] Comment on above: Performed By: #### U RIN ####[address] [address] Lymphocytes Auto #/vol (Bld) 2.22 thou/cmm Normal 0.84-2.85 [facility] Comment on above: Performed By: #### U RIN ####[address] [address] Lymphocytes/100 WBC Auto (Bld) 10.7 % Normal [facility] Comment on above: Performed By: #### U RIN ####[address] [address] Monocytes/100 WBC Auto (Bld) 11.0 % Normal [facility] Comment on above: Performed By: #### U RIN ####[address] [address] Seg Neutrophil 73.3 % Normal [facility] Comment on above: Performed By: #### U RIN ####[address] [address] Erythrocyte distribution width Auto Ratio (RBC) 13.3 % Normal 11.6-14.4 [facility] Comment on above: Performed By: #### U RIN ####[place] [address] Hematocrit Auto Volume Fraction (Bld) 34.2 % Low 40.1-51.0 [facility] Comment on above: Performed By: #### U RIN ####[place] [address] Hemoglobin mass conc (Bld) 11.1 g/dL Low 13.7-17.5 [facility] Comment on above: Performed By: #### U RIN ####[place] [address] MCH Auto Entitic mass (RBC) 33.7 pg High 25.7-32.2 [facility] Comment on above: Performed By: #### U RIN ####[place] [address] MCHC Auto mass conc (RBC) 32.5 % Normal 32.3-36.5 [facility] Comment on above: Performed By: #### U RIN ####[place] [address] MCV Auto Entitic volume (RBC) 104.0 fL High 83.2-95.6 [facility] Comment on above: Performed By: #### U RIN ####[place] [address] Platelet mean volume Auto Entitic volume (Bld) 9.4 fL Normal 8.7-12.0 [facility] Comment on above: Performed By: #### U RIN ####[place] [address] Platelets Auto #/vol (Bld) 376 thou/cmm High 141-365 [facility] Comment on above: Performed By: #### U RIN ####[place] [address] RBC Auto #/vol (Bld) 3.29 mil/cmm Low 4.63-6.08 [facility] Comment on above: Performed By: #### U RIN ####[place] [address] RDW SD 51.2 fl High 36.1-45.8 [facility] Comment on above: Performed By: #### U RIN ####[facility] [place], [place] [address] WBC Auto #/vol (Bld) 20.78 thou/cmm High 4.23-9.07 [facility] Comment on above: Performed By: #### U RIN ####[facility] [place], [place] [address] IMAGE GUIDED DRAINAGE CATH V ISCERAL [id number] 12-25-2017 IMAGE GUIDED DRAINAGE CATH VISCERAL 10963 Performed at [facility] APPROVED BY: Bruce Kaur MD Procedure: Fluoroscopic guided percutaneous drainage catheter placement performed on 12/25/2017. Indication: 52y/o with a recurrent intraparenchymal lung abscess. Comparison: Outside Chest CT dated 12/23/2017. Technique / Findings: The procedure was performed in the VIR Suite following informed consent and a Time Out. Local anesthesia was obtained using 2% lidocaine. With the patient in the supine position, the right upper chest was prepped and draped in the usual sterile fashion. The right upper lobe intraparenchymal abscess cavity was readily apparent by fluoroscopy. An appropriate skin entrance site was identified and marked by fluoroscopy. Using intermittent fluoroscopic guidance, the collection was accessed with a 15 cm, 18-G needle. A 0.035 inch guidewire was inserted into the collection through the needle and coiled within the abscess cavity. The track was dilated to 8-F. Over the guidewire, a 10-F, nonlocking pigtail catheter was placed into the collection. By fluoroscopy, the catheter tip was in the center of the right upper lobe intraparenchymal abscess. Aspiration of the drainage catheter returned 130 mL of greenish purulent fluid. A specimen was sent for culture. The cavity was lavaged with normal saline. The catheter was placed to bulb suction, secured with suture, and dressed in the usual fashion. There were no immediate complications. The patient tolerated the procedure well. Total Fluoroscopy Time: 1.1 minutes.Reference Air Kerma (GAVI): 21 mGy. Intra-Service Time (Moderate Sedation): 15 minutes.Patient Monitoring: I personally supervised and directed an independent trained observer who assisted in monitoring the patient?s level of consciousness and physiological status throughout the procedure. IMPRESSION:Successful fluoroscopic guided percutaneous 10-F nonlocking pigtail right intrapulmonary drainage catheter placement. Normal [facility] PLEURAL DRAINAGE W/CATH WITH IMAGE GUIDANCE [id number] 12-25-2017 PLEURAL DRAINAGE W/CATH WITH IMAGE GUIDANCE 28000 Performed at [facility] APPROVED BY: Bruce Kaur MD Procedure: Fluoroscopic guided percutaneous drainage catheter placement performed on 12/25/2017. Indication: 52y/o with a recurrent intraparenchymal lung abscess. Comparison: Outside Chest CT dated 12/23/2017. Technique / Findings: The procedure was performed in the VIR Suite following informed consent and a Time Out. Local anesthesia was obtained using 2% lidocaine. With the patient in the supine position, the right upper chest was prepped and draped in the usual sterile fashion. The right upper lobe intraparenchymal abscess cavity was readily apparent by fluoroscopy. An appropriate skin entrance site was identified and marked by fluoroscopy. Using intermittent fluoroscopic guidance, the collection was accessed with a 15 cm, 18-G needle. A 0.035 inch guidewire was inserted into the collection through the needle and coiled within the abscess cavity. The track was dilated to 8-F. Over the guidewire, a 10-F, nonlocking pigtail catheter was placed into the collection. By fluoroscopy, the catheter tip was in the center of the right upper lobe intraparenchymal abscess. Aspiration of the drainage catheter returned 130 mL of greenish purulent fluid. A specimen was sent for culture. The cavity was lavaged with normal saline. The catheter was placed to bulb suction, secured with suture, and dressed in the usual fashion. There were no immediate complications. The patient tolerated the procedure well. Total Fluoroscopy Time: 1.1 minutes.Reference Air Kerma (GAVI): 21 mGy. Intra-Service Time (Moderate Sedation): 15 minutes.Patient Monitoring: I personally supervised and directed an independent trained observer who assisted in monitoring the patient?s level of consciousness and physiological status throughout the procedure. IMPRESSION:Successful fluoroscopic guided percutaneous 10-F nonlocking pigtail right intrapulmonary drainage catheter placement. Normal [facility] PROGRESSon 12-25-2017 Protein mass conc HNO ID: [id number] thor: Deanne Cardoza Resice: [facility] MedicineAuthor Type: ResidentType: Progress NotesFiled: 12/25/2017 4:25 PMNote Text: Attsha sam signed by Silvina Phelps at 12/25/2017 6:10 PMDiscussed with team, chart reviewed, orders reviewed. Discussed also with pt'sRN re: 'IR not here on the weekend'. I called Radiology, was given pager numberfor IR doc neurosurgeon, I then spoke with Dr. Al, he agreed to see pt todayfor lung abscess drain placement. He related that, if possible, hold morningdose of eliquis, if already given he anticipated sl bleeding risk (dose washeld).Pt seen today at 0950, all of above related to him, he understood plan of care.Said he had '2 bouts of explosive diarrhea yesterday', none today. No othercomplaints.Disposition - as above and below, had IR drain placed today for lung abscess,eliquis restarted tonight for recent PE, ID is directing abx, culturespending, will need PICC and likely home with home care and IV abx at discharge.*Dr. Al's help today for this very special patient was very muchappreciated.* -------SERVICE DATE: 12/25/2017SERVICE TIME: 1:10 PMNo new subjective AND objective note has been filed under this hospitalservice since the last note was generated.CARE COORDINATION:No Patient Care Coordination Note on file.ASSESSMENT AND PLANAssessment AND Plan, all Hosp ProblemsActive Hospital Problems as of 12/25/2017 Noted - Resolved Cardiovascular Pulmonary embolism, bilateral (HCC) 12/24/2017 - Present Current Assessment AND Plan - Continue Eliquis Elevated blood pressure reading 12/24/2017 - Present Current Assessment AND Plan - Continue to monitor BP- Suspect undiagnosed HTN Sinus tachycardia 12/24/2017 - Present Current Assessment AND Plan - Likely a reaction from infection/pain Pulmonary Lung abscess (HCC) 12/23/2017 - Present Current Assessment AND Plan - CT chest shows change from [id number] to 9X6.4X9.4cm loculated airfluid thin walled abscess in the right upper lobe, associated withmediastinal lymphadenopathy, which is consistent with anaerobic abscesshence anaerobic infection.- s/p IR drain 12/07 at OSH + GBS/ GCS/ Prevotella Oralis- WBC is 20.7- Urine toxicology is positive for opiates- Thoracic surgery consulted, They recommend to continue antibioticsaccording to ID and IR drainage- IR drained the abscess, on drain, they send culture and stain- ID consulted, they recommend to continue vancomycin and zosyn. They willplace PICC on Tuesday.- MRSA nares is still pending- We held the morning Eliquis dose for the procedure. Gastrointestinal Diarrhea 12/22/2016 - Present Current Assessment AND Plan - Stool lactoferrin and culture are pending- Celiac panel is pending- Small suspicion for GI malignancy given hx of chronic diarrhea, weightloss, night sweats, fatigue and presence of bilateral PE.- CT abdomen didn't show any acute events- Consider GI consult if needed when stool results are back id needed. GERD (gastroesophageal reflux disease) 02/06/2015 - Present Current Assessment AND Plan - Continue home PPI Severe protein-calorie malnutrition (HCC) 12/24/2017 - Present Hematology Thrombocytosis (HCC) 12/24/2017 - Present Leukocytosis 12/24/2017 - Present Current Assessment AND Plan - Likely secondary to lung abscess. Macrocytosis without anemia 12/24/2017 - Present Current Assessment AND Plan - Likely due to alcohol abuse. Infectious Disease Mediastinal lymphadenopathy 12/24/2017 - Present Current Assessment AND Plan - Likely reactive from infection. Psychiatry Anxiety 02/13/2014 - Present Current Assessment AND Plan - Continue with Propanolol Alcohol abuse 03/17/2015 - Present Current Assessment AND Plan - Patient denied alcohol abuse.- CIWA will be implemented. Bipolar 1 disorder (HCC) 12/24/2017 - Present Current Assessment AND Plan - Continue [address] , Trazodone and Seroquel and Venlafaxine. Other Obesity, Class II, BMI 35-39.9 12/23/2017 - Present Current Assessment AND Plan - Counseled- will be followed up by PCP Unintentional weight loss 12/24/2017 - Present Current Assessment AND Plan - See plan for diarrhea as above.Medication and Non-Pharmacologic VTE Prophylaxis/AnticoagulantsAnti coagulant AND Antiplatelet Medications Start Dose Route Frequency Ordered Stop 12/24/17 0000 apixaban 5 mg tab(s) (ELIQUIS) 5 mg ORAL 2 TIMES DAILY 12/23/17 2335 --12/23/17 2300 vte pharmacologic prophylaxis contraindicated (ct,pa)12/23/17 2300 activity - mobilize patient ([place])VTE Prophylaxis: VTE prophylaxis appropriatePlan of care discussed with: AttendingSIGNATURE: Malik Morales MD PATIENT NAME: Soraya oBwserDATE: December 25, 2017 : 1:10 PM PAGER/CONTACT #: [phone] [facility] Protein mass conc HNO ID: [id number] thor: Wilfred (Res) OSMANY Gamboaervice: Thoracic SurgeryAuthor Type: ResidentType: Progress NotesFiled: 12/25/2017 11:33 AMNote Text: Attsha sam signed by Shemar Lucia at 01/07/2018 7:05 PMAttending NoteI evaluated the patient and personally participated in the hart components. Iagree with the resident's findings and plan as documented and have discussedthe case and management of the patient's care with the resident.Signature: Shemar Lucia MDDate: 01/07/2018Time: 7:05 PM Thoracic Surgery Progress NoteSERVICE DATE: 12/25/2017SubjectiveSUBJECTIVE:Ferny HARPER. Pt has dry cough, no other complaints.Denies N/V/CP/SOBDiet: DIET REGULARObjectiveOBJECTIVE:Tuyet ls:Temp (24hrs), Av.2 ?C (99 ?F), Min:36.7 ?C (98.1 ?F), Max:37.8 ?C (100?F)BP 125/74 Pulse 92 Temp 36.7 ?C (98.1 ?F) (Oral) Resp 20 Ht177.8 cm (5' 10 ) Wt 98.2 kg (216 lb 8 oz) SpO2 94% BMI 31.06kg/m?O2 Therapy: Room AirIANDO:Date 12/24/17699 - 12/25/17 0659 12/25/17699 - 12/26/17 0659Shift 8036-1749 1701-7850 8342-3181 24 Hour Total 9357-5052 0304-62075063-6783 24 Hour TotalINTAKE PO 898 824 386 5621 390 390 PO 898 717 087 8868 390 390 IV 50 550 350 950 Vancomycin IV 500 250 750 Zosyn IV 50 50 100 200 Shift Total 948 4190 309 4450 390 390OUTPUT Urine 500 3 503 Void (ml) 500 500 Urine Not Saved 3 3 # of BMs Number of BMs 1 x 1 x Shift Total 500 3 503Weight (kg) 99.4 99.4 98.2 98.2 98.2 98.2 98.2 98.2MEDICATIONSCurrent Facility-Administered Medications:LORazepam 2 mg (ATIVAN) 2 mg ORAL q 1 H PRNOrLORazepam 2 mg injection (ATIVAN) 2 mg INTRAVENOUS q 1 H PRNLORazepam 4 mg (ATIVAN) 4 mg ORAL q 1 H PRNOrLORazepam 4 mg injection (ATIVAN) 4 mg INTRAVENOUS q 1 H PRNprenatal vitamin with folic acid 1 mg 1 tablet 1 tablet ORAL DAILYfolic acid 1 mg tab(s) 1 mg ORAL DAILYthiamine 100 mg tab(s) (VITAMIN B1) 100 mg ORAL TIDiv contrast (radiology procedure) INTRAVENOUS DIRECTED PRNcodeine-guaiFENesin 5 mL oral liquid (ROBITUSSIN AC) 5 mL ORAL q 6 H PRNbenztropine 0.5 mg tab(s) (COGENTIN) 0.5 mg ORAL BIDpropranolol 20 mg tab(s) (INDERAL) 20 mg ORAL BIDtraZODone 300 mg tab(s) (DESYREL) 300 mg ORAL AT BEDTIMEvenlafaxine ER 150 mg cap(s) (EFFEXOR XR) 150 mg ORAL DAILYpiperacillin-tazobactam 3.375 g in dextrose (iso-osmotic) 50 mL (ZOSYN)3.375 g INTRAVENOUS q 6 H0.9% NaCl 3-5 mL 3-5 mL INTRAVENOUS q [address] 40 mg tab(s) (PROTONIX) 40 mg ORAL DAILY (6 AM)apixaban 5 mg tab(s) (ELIQUIS) 5 mg ORAL BIDlithium carbonate 1,200 mg cap(s) (ESKALITH) 1,200 mg ORAL DAILYQUEtiapine 200 mg tab(s) (SEROquel) 200 mg ORAL AT BEDTIMEvancomycin 1.5 g in D5W 250 mL (VANCOCIN) 0.015 g/kg/dose INTRAVENOUS q 12HRLabs:Recent Labs 12/24/1799NA 138 138K 3.6 3.4*CHLOR 107 103CO2 24 26BUN 4* 7CREAT 0.82 0.88GLUC 90 98ANION -- 12CA 8.7 8.5P 2.5 --ALB 1.9* 2.3*AST -- 29ALT -- 46ALKPHOS -- 170*TBILI -- 0.4WBC 20.78* 20.94*HB 11.1* 11.1*HCT 34.2* 33.0*PLT 376* 394*LACT -- 0.7Exam:GENERAL: No distress, AlertNEURO: AANDOx3, no focal deficitsHEENT: normocephalic, atraumaticLUNGS: Unlabored breathing O2 Therapy: Room Air, lungs CTA, no appreciabledecreased air movement in any lobe.CARDIAC: Regular rate and rhythm as aboveABDOMEN: Soft, non-tender, non-distendedEXTREMITIES: LOPEZ, No deformities, No edemaSKIN: Skin color, texture, turgor normal, No rashes or lesionsASSESSMENT AND PLAN:Active Hospital Problems Diagnosis Date Noted- Pulmonary embolism, bilateral (HCC) 12/24/2017 Priority: A- Lung abscess ([facility]) 12/23/2017 Priority: A- Diarrhea 12/22/2016 Priority: L Overview Note: Added automatically from request for surgery [id number]- Bipolar 1 disorder ([facility]) 12/24/2017- Elevated blood pressure reading 12/24/2017- Unintentional weight loss 12/24/2017- Mediastinal lymphadenopathy 12/24/2017- Sinus tachycardia 12/24/2017- Thrombocytosis ([facility]) 12/24/2017- Leukocytosis 12/24/2017- Macrocytosis without anemia 12/24/2017- Severe protein-calorie malnutrition ([facility]) 12/24/2017- Obesity, Class II, BMI 35-39.9 12/23/2017- Alcohol abuse 03/17/2015- GERD (gastroesophageal reflux disease) 02/06/2015- Anxiety [birth year]89 year old male with recurrent R lung abscess?- chest CT 12/23 - 9.0 x 6.4 x 9.6 cm RUL lung abscess, RULatelectasis/fibrosis, mediastinal adenopathy- ID recs - cont vanc/zosyn- MRSA pending (12/25)- recommend IR drain and culture, will defer to primary team for order- management per primary- pulm recs- hx Pes on Eliquis- Will request imaging for first incident of abscess.Assessment and plan discussed with attending: Dr. NicoleATURE: Wilfred Gamboa MD PATIENT NAME: Soraya BowserDATE: December 25, 2017 : 11:30 AM Pager: [phone] Normal [facility] Renal Panelon 12-25-2017 Urea nitrogen mass conc 4 mg/dL Low 7-18 [facility] Comment on above: Performed By: #### U RIN ####[place] [address] Creatinine mass conc 0.82 mg/dL Normal 0.67-1.17 [facility] Comment on above: Performed By: #### U RIN ####[facility] [place], [place] [address] Phosphate mass conc 2.5 mg/dL Normal 2.5-4.9 [facility] Comment on above: Performed By: #### U RIN ####[address] [address] Albumin mass conc 1.9 g/dL Low 3.4-5.0 [facility] Comment on above: Performed By: #### U RIN ####[address] [address] Calcium mass conc 8.7 mg/dL Normal 8.5-10.1 [facility] Comment on above: Performed By: #### U RIN ####[address] [address] CO2 molar conc 24 mmol/L Normal 21-32 [facility] Comment on above: Performed By: #### U RIN ####[place] [address] Glucose mass conc 90 mg/dL Normal 70-99 [facility] Comment on above: Performed By: #### U RIN ####[address] [address] Chloride molar conc 107 mmol/L Normal 98-107 [facility] Comment on above: Performed By: #### U RIN ####[address] [address] Potassium molar conc 3.6 mmol/L Normal 3.5-5.1 [facility] Comment on above: Performed By: #### U RIN ####[address] [address] Sodium molar conc 138 mmol/L Normal 136-145 [facility] Comment on above: Performed By: #### U RIN ####[address] [address] Urinalysis Routineon 018 Bacteria LM.HPF #/area (Urine sed) NONE Normal None [facility] Comment on above: Performed By: #### U RIN ####[place] [address] Ep Cells Urine 6.8 /hpf High 0.0-5.0 [facility] Comment on above: Performed By: #### U RIN ####[address] [address] Hyaline Cast 0.8 /lpf Normal 0.0-1.0 [facility] Comment on above: Performed By: #### U RIN ####[address] [address] RBC,Urine 622.3 /hpf High 0.0-5.0 [facility] Comment on above: Performed By: #### U RIN ####[place] [address] WBC, Urine 9.0 /hpf High 0.0-5.0 [facility] Comment on above: Performed By: #### U RIN ####[place] [address] Appearance Nom (U) TURBID Normal [facility] Comment on above: Performed By: #### U RIN ####[place] [address] Bilirubin Urine Negative Normal Negative [facility] Comment on above: Performed By: #### U RIN ####[place] [address] Color Nom (U) OTHER Normal [facility] Comment on above: Performed By: #### U RIN ####[place] [address] Glucose Ql (U) Negative Normal Negative [facility] Comment on above: Performed By: #### U RIN ####[place] [address] Hemoglobin,Urine LARGE Abnormal Negative [facility] Comment on above: Performed By: #### U RIN ####[place] [address] Ketone Urine Negative Normal Negative [facility] Comment on above: Performed By: #### U RIN ####[place] [address] Leukocytes Esterase SMALL Abnormal Negative [facility] Comment on above: Performed By: #### U RIN ####[facility] [place] [address] Nitrites Urine Negative Normal Negative [facility] Comment on above: Performed By: #### U RIN ####[place] [address] pH Test strip (U) 6.5 [pH] Normal 5.0-8.0 [facility] Comment on above: Performed By: #### U RIN ####[place] [address] Protein Urine 300 mg/dL Abnormal Negative [facility] Comment on above: Performed By: #### U RIN ####[place] [address] Specific [place], Ur 1.006 Normal 1.005-1.030 [facility] Comment on above: Performed By: #### U RIN ####[place] [address] Urobilinogen,Ur 0.2 EU/dL Normal 0.0-1.0 [facility] Comment on above: Performed By: #### U RIN ####[place] [address] Vancomycin,Troughon 12-26-19 18 Vancomycin,Trough 23.3 mg/L Critically high 10.0-20.0 [facility] Comment on above: Performed By: #### U RIN ####[place] [address] CONSULTon 12-24-2017 CONSULT HNO ID: [id number] thor: Gosia (Res) Isatu: Thoracic SurgeryAuthor Type: ResidentType: ConsultsFiled: 12/24/2017 4:34 PMNote Text: Attes cecy signed by Shemar Lucia at 01/07/2018 7:06 PMAttending NoteI evaluated the patient and personally participated in the hart components. Iagree with the resident's findings and plan as documented and have discussedthe case and management of the patient's care with the resident.Signature: Shemar Lucia, MDDate: 01/07/2018Time: 7:06 PM CONSULT: THORACIC SURGERY SERVICEVascular AND Thoracic Surgery Service Pager:For questions or concerns Mon-Tue 6a-5p please page [phone].After 5pm and on Weekends and Holidays, please page [phone] if in ICU or [phone] on RNF.SERVICE DATE: 12/24/2017SERVICE TIME: 1:46 PMREASON FOR CONSULT: lung abscessREQUESTING PHYSICIAN: Dr LombardoBIBB [facility] PHYSICIAN: Aleida Chavez, [facility] HospitalDelores Bowser is a 52 year old male with hx lung abscess that [facility] along with incidental finding of bilateral PEs forwhich he was treated with a hep drip then transitioned to Eliquis. Heunderwent IR drain placement, which was removed and he was discharged homeon Augmentin on 12/12. He felt well after discharge but in the last coupledays complains of increasing SOB, cough and chest pain with associatedchills, subjective fever, night sweats. He's had a 25 lb unintentionalweight loss in the last few weeks. He's unsure the etiology of his abscessbut reports he may have aspirated when taking his psych meds in the dayssince his admission at [facility].PAST MEDICAL HISTORYDiagnosis Date- Bipolar 1 disorder (HCC)- GERD (gastroesophageal reflux disease)- Left elbow pain- Shoulder pain, rightPAST SURGICAL HISTORYProcedure Laterality Date- PAST SURGICAL HISTORY OF Right 1998 right wrist debridement (s/p infection of pins from repair)FAMILY HISTORYProblem Relation Age of Onset- Adopted: Yes- congestive heart failure [OTHER] Maternal Grandmother- Cancer FatherSocial HistorySubstance Use Topics- Smoking status: Never Smoker- Smokeless tobacco: Never Used- Alcohol use Yes Comment: rarePrescriptions Prior to Admission:apixaban (ELIQUIS) 5 mg tab(s) Take 5 mg by mouth twice daily. Disp: Rfl:lithium carbonate 600 mg capsule Take 1,200 mg by mouth once daily. Disp:Rfl:benztropine (COGENTIN) 0.5 mg tablet Take 0.5 mg by mouth twice daily.Disp: Rfl:venlafaxine XR (EFFEXOR XR) 150 mg 24 hr capsule Take 150 mg by mouth oncedaily. Disp: Rfl:propranolol (INDERAL) 20 mg tablet Take 20 mg by mouth twice daily. Disp:Rfl:QUEtiapine (SEROQUEL) 100 mg tablet Take 200 mg by mouth every evening.Disp: Rfl:traZODone HCl 300 mg tablet Take 900 mg by mouth daily at bedtime. Disp:Rfl:omeprazole (PRILOSEC) 20 mg capsule Take 1 capsule by mouth once daily.Disp: 90 capsule Rfl: 3Current hospital medications:LORazepam 2 mg (ATIVAN) 2 mg ORAL q 1 H PRNLORazepam 2 mg injection (ATIVAN) 2 mg INTRAVENOUS q 1 H PRNLORazepam 4 mg (ATIVAN) 4 mg ORAL q 1 H PRNLORazepam 4 mg injection (ATIVAN) 4 mg INTRAVENOUS q 1 H PRNprenatal vitamin with folic acid 1 mg 1 tablet 1 tablet ORAL DAILYfolic acid 1 mg tab(s) 1 mg ORAL DAILYthiamine 100 mg tab(s) (VITAMIN B1) 100 mg ORAL TIDguaiFENesin-dextromethorpha n 100-10 mg/5 mL 10 mL oral liquid (ROBITUSSINDM) 10 mL ORAL q 4 H PRNiv contrast (radiology procedure) INTRAVENOUS DIRECTED PRNenteric contrast (radiology procedure) ORAL DIRECTED PRNbenztropine 0.5 mg tab(s) (COGENTIN) 0.5 mg ORAL BIDpropranolol 20 mg tab(s) (INDERAL) 20 mg ORAL BIDtraZODone 300 mg tab(s) (DESYREL) 300 mg ORAL AT BEDTIMEvenlafaxine ER 150 mg cap(s) (EFFEXOR XR) 150 mg ORAL DAILYpiperacillin-tazobactam 3.375 g in dextrose (iso-osmotic) 50 mL (ZOSYN)3.375 g INTRAVENOUS q 6 H0.9% NaCl 3-5 mL 3-5 mL INTRAVENOUS q [address] 40 mg tab(s) (PROTONIX) 40 mg ORAL DAILY (6 AM)apixaban 5 mg tab(s) (ELIQUIS) 5 mg ORAL BIDlithium carbonate 1,200 mg cap(s) (ESKALITH) 1,200 mg ORAL DAILYQUEtiapine 200 mg tab(s) (SEROquel) 200 mg ORAL AT BEDTIMEvancomycin 1.5 g in D5W 250 mL (VANCOCIN) 0.015 g/kg/dose INTRAVENOUS q 12HRAllergies As of Date: 12/23/2017(No Known Allergies)Fully Assessed 12/23/2017COMPLETE REVIEW OF SYSTEMS:See HPIObjectivePHYSICAL EXAM:Physical Exam Performed:GENERAL: Alert, no distress, cooperativeSKIN: Skin color, texture, turgor normal. No rashes or lesions.LUNGS: slightly TTP R lateral ribs, no resp distressBP 121/68 Pulse 91 Temp (Src) 98.2 (Oral) Resp 20 Ht 5' 10 (1.78m) Wt 219 lb 2.2 oz (99.4kg) SpO2 95% BMI 31.44 kg/(m2).DATA:Diagnostic tests reviewed for today's visit:Most recent labs and imaging results.CT ABD/PEL W IVCON (Results Pending)IR ABSCESS DRAIN PLACEMENT ([place]) (Results Pending)Impression/Recommendat ions52 year old male with recurrent R lung abscess- chest CT 12/23 - 9.0 x 6.4 x 9.6 cm RUL lung abscess, RULatelectasis/fibrosis, mediastinal adenopathy- ID recs - cont vanc/zosyn- MRSA pending- recommend IR drain and culture- management per primary- pulm recs- hx PEs, EliquisDiscussed above plan with attending, Dr Martins AND Thoracic Surgery Service Pager:For questions or concerns Mon-Fri 6a-5p please page [phone].After 5pm and on Weekends and Holidays, please page [phone] if in ICU or [phone] on RNF.SIGNATURE: Gosia Gorman MD PATIENT NAME: Soraya BowserDATE: December 24, 2017 : 1:46 PM PAGER: [phone] Normal [facility] CONSULT HNO ID: [id number] thor: Tenzin Alinaervice: Infectious DiseaseAuthor Type: PhysicianType: ConsultsFiled: 12/24/2017 6:37 PMNote Text:CONSULT: INFECTIOUS DISEASE SERVICESERVICE DATE: 12/24/2017SERVICE TIME: 11:13 AMREASON FOR CONSULT: Right Lung AbscessREQUESTING PHYSICIAN:PRIMARY CARE PHYSICIAN: Ross FrenchDelores Bowser is a 52 year old male who was directly admitted from [facility].He present with shortness of breath and chest pain. He was recentlyadmitted there 11/2017 with diagnosis of bilateral PE, subsequently foundto have a 12 x 12 x 8 cm right [facility] Reviewed of cultures from 12/07 show GBS/ GCS andPrevotella Oralis. He was discharged home on PO Augmentin. At present heis c/o fevers/ chills/ sweats/ CP and hemoptysis. CT [facility] 6, 4 x 9 cm loculated air fluid collection rightupper lobe.Review of [facility] labs; WBC 24. [facility] furtherevaluation. Admitting vitals temp 99, HR 96, normotensive , RA. WBC 20, LA0.7. Blood culture obtained. He was started on Vancomycin/ Zosyn, admittedto medical floor. IR guided abscess drain has been ordered. CT abd/pelvispending. ID c/s for further management.patient endorses aspiration at night. States he is on heavy sedativepsychotic medications HS, as well as diagnosis with GERD and often wakesup choking/ aspirating. [facility] HISTORYDiagnosis Date- Bipolar 1 disorder (HCC)- GERD (gastroesophageal reflux disease)- Left elbow pain- Shoulder pain, rightPAST SURGICAL HISTORYProcedure Laterality Date- PAST SURGICAL HISTORY OF Right 1998 right wrist debridement (s/p infection of pins from repair)FAMILY HISTORYProblem Relation Age of Onset- Adopted: Yes- congestive heart failure [OTHER] Maternal Grandmother- Cancer FatherSocial HistorySubstance Use Topics- Smoking status: Never Smoker- Smokeless tobacco: Never Used- Alcohol use Yes Comment: rarePrescriptions Prior to Admission:apixaban (ELIQUIS) 5 mg tab(s) Take 5 mg by mouth twice daily. Disp: Rfl:lithium carbonate 600 mg capsule Take 1,200 mg by mouth once daily. Disp:Rfl:benztropine (COGENTIN) 0.5 mg tablet Take 0.5 mg by mouth twice daily.Disp: Rfl:venlafaxine XR (EFFEXOR XR) 150 mg 24 hr capsule Take 150 mg by mouth oncedaily. Disp: Rfl:propranolol (INDERAL) 20 mg tablet Take 20 mg by mouth twice daily. Disp:Rfl:QUEtiapine (SEROQUEL) 100 mg tablet Take 200 mg by mouth every evening.Disp: Rfl:traZODone HCl 300 mg tablet Take 900 mg by mouth daily at bedtime. Disp:Rfl:omeprazole (PRILOSEC) 20 mg capsule Take 1 capsule by mouth once daily.Disp: 90 capsule Rfl: 3Current hospital medications:LORazepam 2 mg (ATIVAN) 2 mg ORAL q 1 H PRNLORazepam 2 mg injection (ATIVAN) 2 mg INTRAVENOUS q 1 H PRNLORazepam 4 mg (ATIVAN) 4 mg ORAL q 1 H PRNLORazepam 4 mg injection (ATIVAN) 4 mg INTRAVENOUS q 1 H PRNprenatal vitamin with folic acid 1 mg 1 tablet 1 tablet ORAL DAILYfolic acid 1 mg tab(s) 1 mg ORAL DAILYthiamine 100 mg tab(s) (VITAMIN B1) 100 mg ORAL TIDguaiFENesin-dextromethorpha n 100-10 mg/5 mL 10 mL oral liquid (ROBITUSSINDM) 10 mL ORAL q 4 H PRNiv contrast (radiology procedure) INTRAVENOUS DIRECTED PRNenteric contrast (radiology procedure) ORAL DIRECTED PRNbenztropine 0.5 mg tab(s) (COGENTIN) 0.5 mg ORAL BIDpropranolol 20 mg tab(s) (INDERAL) 20 mg ORAL BIDtraZODone 300 mg tab(s) (DESYREL) 300 mg ORAL AT BEDTIMEvenlafaxine ER 150 mg cap(s) (EFFEXOR XR) 150 mg ORAL DAILYpiperacillin-tazobactam 3.375 g in dextrose (iso-osmotic) 50 mL (ZOSYN)3.375 g INTRAVENOUS q 6 H0.9% NaCl 3-5 mL 3-5 mL INTRAVENOUS q [address] 40 mg tab(s) (PROTONIX) 40 mg ORAL DAILY (6 AM)apixaban 5 mg tab(s) (ELIQUIS) 5 mg ORAL BIDlithium carbonate 1,200 mg cap(s) (ESKALITH) 1,200 mg ORAL DAILYQUEtiapine 200 mg tab(s) (SEROquel) 200 mg ORAL AT BEDTIMEvancomycin 1.5 g in D5W 250 mL (VANCOCIN) 0.015 g/kg/dose INTRAVENOUS q 12HRAllergies As of Date: 12/23/2017(No Known Allergies)Fully Assessed 12/23/2017COMPLETE REVIEW OF SYSTEMS:10 point ROS complete, negative unless otherwise statedC/o chills/ night sweats, coughIntermittent dyspnea/ pleuritic chest painObjectivePHYSICAL EXAM:Temp (24hrs), Av.1 ?C (98.7 ?F), Min:36.8 ?C (98.2 ?F), Max:37.2 ?C(99 ?F)GEN: Alert, pleasant, NADHEENT: PERRL, moist oral mucosa, neck supplePULM: coarse rhonchi RU/LLCV: RRRGI: soft, non distended, non tender, BSx4GU: no wasserman, no CVATEXT: no edema, no joint inflammationSKIN: no rashNEURO: no focal deficits, Alert and oriented q9VGACM: PIV sites cleanBody mass index is 31.44 kg/m?.Patient Vitals for the past 24 hrs: BP Temp Temp src Pulse Resp SpO2 Height Hoarxt65/04/18 0800 121/68 36.8 ?C (98.2 ?F) Oral 91 20 95 % - -12/24/17 0600 - - - - - - - 99.4 kg (219 lb 2.2 oz)12/24/17 0446 115/53 37 ?C (98.6 ?F) Oral 89 20 93 % - -12/24/17 0021 149/75 37.1 ?C (98.8 ?F) Oral 94 18 96 % - -12/23/17 2243 150/86 37.2 ?C (99 ?F) Oral 96 18 99 % - -12/23/17 2200 - - - - - - 177.8 cm (5' 10 ) 100.3 kg (221 lb 1.9 oz)DATA:Diagnostic tests reviewed for today's visit:Recent Labs 12/24/179957WBC 20.94*HB 11.1*PLT 394*NA 138K 3.4*CO2 26BUN 7CREAT 0.88AST 29ALT 46TBILI 0.4ALKPHOS 170*LACT 0.7MICROBIOLOGY:12/07 Lung Abscess Cx; GBS/ GCS, Prevotella Tcbyfz94/04 Blood Cx; in processIMAGES:ReviewedPaper Copy of CT from OSH on ChartImpression/Recommendation s1. Sepsis 06/24 # 22. Right Upper Lobe Loculated Lung Abscess -- s/p IR drain 12/07 at OSH + GBS/ GCS/ Prevotella Oralis -- Failure to improved on PO Antibiotics -- likely aspiration related v/s complicated CAP3. Leukocytosis4. Fever/ Chills5. Dyspnea/ Chest Pain6. Ac on Chronic AnemiaPlan;Continue Vancomycin/ Zosyn for nowCheck MRSA NaresAwait IR Abscess Drain- culture dataFollow CBCSIGNATURE: Mayuri Kruger APRN.[employer] K[employer]ITTING MACHINE OPERATOR PATIENT NAME: Soraya BowserDATE: December 24, 2017 : 11:13 AM PAGER: [phone]++++++++++++++++++++++ [phone]+++++++++++++++++++++++++++++ +++++++++++++++Above reflects my direct input except for changes as amended. Revieweddata independently.Tenzin Cantrell MD12/24/20176:37 PM Normal [facility] CT ABDOMEN AND PELVIS WITH C ONTRASTon 12-24-2017 CT ABDOMEN AND PELVIS WITH CONTRAST Performed at [facility] APPROVED BY: Dario Blankenship MD EXAMINATION: CT ABDOMEN AND PELVIS WITH IV CONTRAST CLINICAL HISTORY: Diarrhea. TECHNIQUE: CT of the abdomen and pelvis was performed using standard technique, scanning from just above the dome of the diaphragm to the symphysis pubis. MQ: CTAP_3 Contrast:IV: 150 ml of Omnipaque 300 Oral: 900 ml of Readi-Cat CT Radiation dose: Integrated Dose-length product (DLP) for this visit = 716.01 mGy*cm.CT Dose Reduction Employed: Automated exposure control (AEC) was used. COMPARISON: No prior abdomen imaging. Correlation made with CT chest from outside institution 12/23/2017. RESULT: Liver: No mass. Biliary: No bile duct dilation. Gallbladder is unremarkable. Spleen: No mass. No splenomegaly. Pancreas: No mass or duct dilation. Adrenals: No mass. Kidneys: No mass, calculus or hydronephrosis. GI tract: The large and small bowel loops are within normal limits. The appendix is within normal limits. Lymph nodes: No abdominal or pelvic lymphadenopathy. Mesentery/Peritoneum: No ascites or mass. Retroperitoneum: No mass. Vasculature: The celiac axis and SMA are patent. The portal vein and branches, splenic vein, SMV, and hepatic veins are patent. No abdominal aortic or iliac artery aneurysm. Pelvis: No mass, ascites or fluid collection. No urinary bladder calculi. Prostate size is within normal limits. Bones/Soft Tissues: No suspicious destructive osseous lesion. L5 bilateral pars interarticularis defects without spondylolisthesis. Minimal umbilical hernia containing only fat. Lower thorax: There is airspace opacification of both lower lobes, right more than left suspicious for areas of pneumonia. Remaining visualized lung bases are clear. There is mild asymmetric elevation of the right hemidiaphragm. IMPRESSION: No evidence of acute process in abdomen or pelvis. Airspace opacity in both lower lobe suspicious for pneumonia, right more than left. Mild asymmetric elevation of the right hemidiaphragm. L5 bilateral pars intra-articular is defects without spondylolysis. Minimal fat-containing umbilical hernia. Normal [facility] Comprehensive Panelon 2017 AST enzyme act/vol 29 U/L Normal 9-37 [facility] Comment on above: Performed By: #### P 14 ####[place] [address] ALP enzyme act/vol 170 U/L High 46-116 [facility] Comment on above: Performed By: #### P 14 ####[facility] [place], [place] [address] Creatinine mass conc 0.88 mg/dL Normal 0.67-1.17 [facility] Comment on above: Performed By: #### P 14 ####[facility] [place], [place] [address] ALT enzyme act/vol 46 U/L Normal 12-78 [facility] Comment on above: Performed By: #### P 14 ####[facility] [place], [place] [address] Bilirubin mass conc 0.4 mg/dL Normal 0.2-1.0 [facility] Comment on above: Performed By: #### P 14 ####[address] [address] Protein mass conc 6.9 g/dL Normal 6.4-8.2 [facility] Comment on above: Performed By: #### P 14 ####[place] [address] Albumin mass conc 2.3 g/dL Low 3.4-5.0 [facility] Comment on above: Performed By: #### P 14 ####[address] [address] Anion gap 3 molar conc 12 mmol/L Normal 8-16 [facility] Comment on above: Performed By: #### P 14 ####[facility] [place], [place] [address] Calcium mass conc 8.5 mg/dL Normal 8.5-10.1 [facility] Comment on above: Performed By: #### P 14 ####[address] [address] CO2 molar conc 26 mmol/L Normal 21-32 [facility] Comment on above: Performed By: #### P 14 ####[address] [address] Glucose mass conc 98 mg/dL Normal 70-99 [facility] Comment on above: Performed By: #### P 14 ####[facility] [place], [place] [address] Urea nitrogen mass conc 7 mg/dL Normal 7-18 [facility] Comment on above: Performed By: #### P 14 ####[facility] [place], [place] [address] Chloride molar conc 103 mmol/L Normal 98-107 [facility] Comment on above: Performed By: #### P 14 ####[facility] [place], [place] [address] Potassium molar conc 3.4 mmol/L Low 3.5-5.1 [facility] Comment on above: Performed By: #### P 14 ####[address] [address] Sodium molar conc 138 mmol/L Normal 136-145 [facility] Comment on above: Performed By: #### P 14 ####[address] [address] Free T3on 12-24-2017 T3 free mass conc 1.9 pg/mL Low 2.2-4.0 [facility] Comment on above: Performed By: #### U RIN ####[address] [address] Free Thyroxineon 12-24-2017 T4 free mass conc 1.10 ng/dL Normal 0.76-1.46 [facility] Comment on above: Performed By: #### U RIN ####[address] [address] HISTORY PHYSICALon 8 HISTORY PHYSICAL HNO ID: [id number] thor: Sophia (Deanne Boothice: [facility] Type: ResidentType: HANDPFiled: 12/24/2017 12:37 AMNote Text: Attsha sam signed by Silvina Phelps at 12/24/2017 2:16 PMDiscussed with team this morning, agreed with plan of care but did advisedconsult pulm/CTS for likely need for either CT or VATS due to acute on chroniclung abscess.See also today's follow up progress note. SERVI CE DATE: 12/24/2017SERVICE TIME: 12:33 AMHOSPITAL MEDICINE HISTORY AND PHYSICALPCP: Deepa French Complaint: Cough, SOB and chest pain.HPI:A 52 year old male was admitted from [facility]. He has cough, SOB andchest pain that started 2 weeks ago.On December 10 he was admitted to the ED because of bilateral PE, which wastreated with heparin drip. During his course of hospitalization hedeveloped chest pain, fever and productive cough. He was found to have [id number] cm right upper lobe abscess. Abscess was drained duringhospitalization. He was then discharged on Augmentin and Eliquis.?Today, he presented to the ED with chest pain graded as 4/10, radiates tohis back and is pleuritis in nature. Pain is increased with change inposition and cough. Patient tried tylenol and ibuprofen to relieve thepain and that worked for a short period of time. Pain is decreasing inintensity.Pain is associated with SOB and cough. Cough is productive,white phlegm with red bloody strikes. Patient also reports fever, chillsand sweats. Repeat CXR and CT chest done at [facility] showed a 9X6.5Y0fbintywqlhg air fluid right upper lobe abscess, and mediastinal adenopathy.?Patient reports loss of appetite, fatigue and 14 pounds unintentionalweight loss over a period of 1 month.PAST MEDICAL HISTORYDiagnosis Date- Bipolar 1 disorder (HCC)- GERD (gastroesophageal reflux disease)- Left elbow pain- Shoulder pain, rightPAST SURGICAL HISTORYProcedure Laterality Date- PAST SURGICAL HISTORY OF Right 1998 right wrist debridement (s/p infection of pins from repair)FAMILY HISTORYProblem Relation Age of Onset- Adopted: Yes- congestive heart failure [OTHER] Maternal Grandmother- Cancer FatherSocial HistorySubstance Use Topics- Smoking status: Never Smoker- Smokeless tobacco: Never Used- Alcohol use Yes Comment: rareMedications: ReviewedAllergies: ALLERGIESNo Known AllergiesReview of Systems:Significant for weight loss, fever, chills, fatigue, night sweats,decreased activity levels and decreased appetite.Unilateral throbbing headaches.Patient also reported chronic diarrhea and heartburn.Chest pain, productive cough, hemoptysis and SOB.All other systems reviewed were negative.OBJECTIVE:PHYSICAL EXAMBP 150/86 Pulse 96 Temp (Src) 99 (Oral) Resp 18 Ht 5' 10 (1.78m) Wt 221 lb 1.9 oz (100.3kg) SpO2 99% BMI 31.73 kg/(m2).Physical Exam Performed:GENERAL: Alert, no distress, cooperativeSKIN: Skin color, texture, turgor normal. No rashes or lesions.LUNGS: Positive findings: rales Right lobe, bronchial breath sounds rightlobe.CARDIAC: Normal S1 and S2; no rubs, murmurs, or gallopsABDOMEN: Abdomen soft, non-tender, BS normal, No masses or organomegalyEXTREMITIES: Extremities normal, no deformities, edema, clubbing or skindiscoloration. Good capillary refill.NEURO:Alert and oriented to place, time and person.Lines, Drains, and Airways Line Peripheral 12/23/17 2249 Left Antecubital 20 Gauge less than 1 dayDiagnostic tests reviewed: Most recent labs and imaging results:Creatinine: 07/28/2017: 0.89CBC: WBC: 24.8, Hb:12.7, Platlets: 490, RBC count: 3.75Electrolytes: Sodium: 134??Imaging:CT chest 07/29/3027: Loculated right upper lobe abscess jlyhcacsp4P8.4X9.6cm + mediastinal adenopathy.?CARE COORDINATION:No Patient Care Coordination Note on file.Assessment AND Plan, Hosp Problems our Service AddressedCardiovascularSinus tachycardia - Likely a reaction from infection/painElevated blood pressure reading - Continue to monitor BP- Suspect undiagnosed HTNPulmonary embolism, bilateral (HCC) - Continue EliquisPulmonaryLung abscess (HCC) - Continue antibiotics ( vancomycin and Zosyn)- Consider pulmonary consult.- Upload imaging records from [facility]- Follow blood culture from [facility]- Check HIV and HbA1C- Investigate underlying reasons for lung abscess- Check lactate- CT chest shows change from [id number] to 9X6.4X9.4cm loculated air fluidthin walled abscess in the right upper lobe, associated with mediastinallymphadenopathy, which is consistent with anaerobic abscess henceanaerobic infection.GastrointestinalGERD (gastroesophageal reflux disease) - Continue home PPIDiarrhea - Stool lactoferrin and culture will be checked- small suspicion for GI malignancy given hx of chronic diarrhea, weightloss, night sweats, fatigue and presence of bilateral PE.- Consider CT abdomen.- Consider GI consult.HematologyMacrocytosis without anemia - Likely due to alcohol abuse.Leukocytosis - Likely secondary to lung abscess.Infectious DiseaseMediastinal lymphadenopathy - Likely reactive from infection.- Will call [facility] tomorrow to obtain previous results of CT chest.PsychiatryBipolar 1 disorder (HCC) - Continue [address] , Trazodone and Seroquel and Venlafaxine.Alcohol abuse - Patient denied alcohol abuse.- CIWA will be implemented.Anxiety - Continue with PropanololOtherUnintentional weight loss - See plan for diarrhea as above.Obesity, Class II, BMI 35-39.9 - Counseled- will be followed up by PCPMedication and Non-Pharmacologic VTE Prophylaxis/AnticoagulantsAnti coagulant AND Antiplatelet Medications Start Dose Route Frequency Ordered Stop 12/24/17 0000 apixaban 5 mg tab(s) (ELIQUIS) 5 mg ORAL 2 TIMES DAILY 12/23/17 9097 --VTE Prophylaxis: Contraindicated due to therapeutic anticoagulationSIGNATURE: Sophia Glynn MD PATIENT NAME: Soraya Avilez: December 24, 2017 : 12:33 AM PAGER/CONTACT #: [phone] Normal [facility] Hemogram/Diffon 12-24-2017 Abs. Baso 0.00 thou/cmm Low 0.01-0.08 [facility] Comment on above: Performed By: #### C BCD1 ####[place] [address] Abs. [place] 1.26 thou/cmm High 0.30-0.82 [facility] Comment on above: Performed By: #### C BCD1 ####[address] [address] Abs. Neut (ANC) 16.75 thou/cmm High 1.78-5.38 [facility] Comment on above: Performed By: #### C BCD1 ####[address] [address] Basophils/100 WBC Auto (Bld) 0.0 % Normal [facility] Comment on above: Performed By: #### C BCD1 ####[address] [address] Eosinophils Auto #/vol (Bld) 0.42 thou/cmm Normal 0.04-0.54 [facility] Comment on above: Performed By: #### C BCD1 ####[address] [address] Eosinophils/100 WBC Auto (Bld) 2.0 % Normal [facility] Comment on above: Performed By: #### C BCD1 ####[address] [address] Immat Grans Abs calc 0.84 Normal [facility] Comment on above: Performed By: #### C BCD1 ####[address] [address] Lymphocytes Auto #/vol (Bld) 1.68 thou/cmm Normal 0.84-2.85 [facility] Comment on above: Performed By: #### C BCD1 ####[address] [address] Lymphocytes/100 WBC Auto (Bld) 8.0 % Normal [facility] Comment on above: Performed By: #### C BCD1 ####[address] [address] Metamyelocytes 2.0 % Normal [facility] Comment on above: Performed By: #### C BCD1 ####[place] [address] Metamyelocytes/100 WBC Manual cnt (Bld) 2.0 % Normal [facility] Comment on above: Performed By: #### C BCD1 ####[place] [address] Monocytes/100 WBC Auto (Bld) 6.0 % Normal [facility] Comment on above: Performed By: #### C BCD1 ####[place] [address] Polychromasia Slight Normal [facility] Comment on above: Performed By: #### C BCD1 ####[place] [address] RBC morphology finding Nom (Bld) Present Normal [facility] Comment on above: Performed By: #### C BCD1 ####[place] [address] Seg Neutrophil 80.0 % Normal [facility] Comment on above: Performed By: #### C BCD1 ####[place] [address] Toxic Granulation Slight Normal [facility] Comment on above: Performed By: #### C BCD1 ####[place] [address] Erythrocyte distribution width Auto Ratio (RBC) 13.2 % Normal 11.6-14.4 [facility] Comment on above: Performed By: #### C BCD1 ####[place] [address] Hematocrit Auto Volume Fraction (Bld) 33.0 % Low 40.1-51.0 [facility] Comment on above: Performed By: #### C BCD1 ####[place] [address] Hemoglobin mass conc (Bld) 11.1 g/dL Low 13.7-17.5 [facility] Comment on above: Performed By: #### C BCD1 ####[place] [address] MCH Auto Entitic mass (RBC) 34.0 pg High 25.7-32.2 [facility] Comment on above: Performed By: #### C BCD1 ####[place] [address] MCHC Auto mass conc (RBC) 33.6 % Normal 32.3-36.5 [facility] Comment on above: Performed By: #### C BCD1 ####[place] [address] MCV Auto Entitic volume (RBC) 101.2 fL High 83.2-95.6 [facility] Comment on above: Performed By: #### C BCD1 ####[place] [address] Platelet mean volume Auto Entitic volume (Bld) 9.2 fL Normal 8.7-12.0 [facility] Comment on above: Performed By: #### C BCD1 ####[place] [address] Platelets Auto #/vol (Bld) 394 thou/cmm High 141-365 [facility] Comment on above: Performed By: #### C BCD1 ####[place] [address] RBC Auto #/vol (Bld) 3.26 mil/cmm Low 4.63-6.08 [facility] Comment on above: Performed By: #### C BCD1 ####[place] [address] RDW SD 49.7 fl High 36.1-45.8 [facility] Comment on above: Performed By: #### C BCD1 ####[place] [address] WBC Auto #/vol (Bld) 20.94 thou/cmm High 4.23-9.07 [facility] Comment on above: Performed By: #### C BCD1 ####[place] [address] Hgb A1con 12-24-2017 Glucose mass conc 97 mg/dL Normal [facility] Comment on above: Performed By: #### H A1C ####[place] [address] Hemoglobin A1c/Hemoglobin.tot al mass fraction (Bld) 5.0 % Normal 4.2-6.3 [facility] Comment on above: Result Comment: Meth od is National Glycohemoglobin Standardization Program (NGSP) compliant. Performed By: #### H A1C ####[place] [address] IgAon 12-24-2017 IgA mass conc 338 mg/dL Normal 70-400 [facility] Comment on above: Performed By: #### U RIN ####[place] [address] Lactic Acidon 12-24-2017 Lactate molar conc 0.7 mmol/L Normal 0.4-2.0 [facility] Comment on above: Performed By: #### L AC ####[place] [address] Serumon 12-24-[address] Serum 0.8 mEq/L Normal 0.6-1.2 [facility] Comment on above: Performed By: #### L ITH ####[place] [address] MRSA Screenon 12-24-2017 MRSA Screen Test performed at [facility] No MRSA detected. Normal [facility] Comment on above: Performed By: #### U RIN ####[place] [address] NUTRITIONon 12-24-2017 NUTRITION HNO ID: [id number] thor: SMITA Santo Rdervice: Nutrition TherapyAuthor Type: Registered DietitianType: NutritionFiled: 12/24/2017 12:31 PMNote Text:NUTRITION THERAPY INITIAL ASSESSMENTSERVICE DATE: 12/24/2017SERVICE TIME: 12:25 PMRECOMMENDED MALNUTRITION DIAGNOSIS: SEVERE PROTEIN-CALORIE MALNUTRITIONIn the context of Social/Environmental Circumstance based on:Unintentional Weight Loss: >10% in 6 monthsInsufficient Energy Intake: less than or equal to 50% for greater than orequal to 1 monthNUTRITION CARE PLAN:Problem, Etiology and Signs/Symptoms:Suboptimal protein/energy intake related to feelings of depression asevidenced by patient interview.Intervention:Ensure Enlive BID To provide 350 kcal and 20 g protein per servingMagic Cup QD to provide 290 kcal and 9g protein per servingMonitor and Evaluation:Goal: Meet >75% of estimated needsMonitor fluid/electrolyte balanceMonitor labs, I/Os, vital signs, weightDischarge Nutrition Recommendations:Diet: Regular Reason for Assessment: [facility] 2Per HPI: A 52 year old male was admitted from [facility]. He has cough,SOB and chest pain that started 2 weeks ago. He was treated for bilateralPE and had [id number] cm right upper lobe abscess drained. He was DC'd onmalgorzataentin and elijarvis. Today patient presents with CP pleuritic in natureassociated with SOB, productive cough, fever, chills, and sweat. CXR andchest CT done at [facility] showed a 9x6, 4x9 loculated air fluid right upperlobe abscess.?Patient reports loss of appetite, fatigue and 14 poundsunintentional weight loss over a period of 1 month.Active Hospital Problems Diagnosis Date Noted- Pulmonary embolism, bilateral ([facility]) 12/24/2017 Priority: A- Lung abscess ([facility]) 12/23/2017 Priority: A- Diarrhea 12/22/2016 Priority: L Overview Note: Added automatically from request for surgery [id number]- Bipolar 1 disorder ([facility]) 12/24/2017- Elevated blood pressure reading 12/24/2017- Unintentional weight loss 12/24/2017- Mediastinal lymphadenopathy 12/24/2017- Sinus tachycardia 12/24/2017- Thrombocytosis ([facility]) 12/24/2017- Leukocytosis 12/24/2017- Macrocytosis without anemia 12/24/2017- Obesity, Class II, BMI 35-39.9 12/23/2017- Alcohol abuse 03/17/2015- GERD (gastroesophageal reflux disease) 02/06/2015- Anxiety 02/13/2014PAST MEDICAL HISTORYDiagnosis Date- Bipolar 1 disorder (HCC)- GERD (gastroesophageal reflux disease)- Left elbow pain- Shoulder pain, rightPAST SURGICAL HISTORYProcedure Laterality Date- PAST SURGICAL HISTORY OF Right 1998 right wrist debridement (s/p infection of pins from repair)Met with patient who reports being on the down slide of his bipolardisorder. For the past 1 month patient has not had the motivation to makemeals for himself. In the past when he felt depressed, he was able to keepup with his oral intake.Present Diet Order: RegularEnteral Access: N/ANutritional Intake Prior to Admission: <50% estimated energy need over thepast 1 month(s). Suspect <75% estimated energy needs for the pas 7 monthsdue to significant weight loss. He reports mainly consuming liquids overthe past month; milk, V8, yogurt, and water. He finds it difficult to cookfor 1 and often will not cook. Encouraged frozen meals but patient statedhe is tired of those. Encouraged adequate intake and using supplements.GI symptoms: noneAbdominal Exam: abdomen is softIs the patient having any pain that is interfering with oral/enteralintake? NoANTHROPOMETRICSHeight: 177.8 cm (5' 10 )Admission Weight: 100.3 kg (221 lb 1.9 oz)Current Weight: 99.4 kg (219 lb 2.2 oz)Body mass index is 31.44 kg/m?. class 1 obesityWeight has decreased by 12.6 kg over ~6 months representing 11.3 % weightchange. Clinically significant.Last Wt12/24/17 : 99.4 kg (219 lb 2.2 oz)06/21/17 : 112 kg (247 lb)03/01/17 : 109.8 kg (242 lb)08/04/16 : 108.4 kg (239 lb)09/01/15 : 103 kg (227 lb)05/05/15 : 102.5 kg (226 lb)03/17/15 : 89.4 kg (197 lb)02/10/15 : 93.9 kg (207 lb)02/06/15 : 86.2 kg (190 lb)11/19/14 : 91 kg (200 lb 9.6 oz)02/13/14 : 93.2 kg (205 lb 6.4 oz)10/09/13 : 92.3 kg (203 lb 6.4 oz)07/26/13 : 96.2 kg (212 lb)02/22/13 : 97.1 kg (214 lb)11/27/12 : 96.6 kg (213 lb)10/12/12 : 98.9 kg (218 lb)[place] Body Weight: 75.5kgResting Metabolic Rate: 1853Estimated kilocalorie needs: 7743-6213 kilocalories determined by 25-30kcal/kgEstimated protein needs: 98-128 grams determined by 1.3-1.7 g/kg IdealweightEstimated fluid needs: 1890+ milliliters based on 1 mL per kcalNUTRITION FOCUSED PHYSICAL EXAM:Subcutaneous Fat LossOrbital Mild - heavy bags under eyesTriceps MildMid-axillary at the iliac crest No fat lossMuscle Loss Locations:Temporalis No muscle lossPectoralis No muscle lossDeltoids MildInterosseous No muscle lossLatissimus dorsi, trapezius No muscle lossQuadriceps MildGastrocnemius No muscle lossPotential micronutrient deficiency revealed in: No deficiency identifiedEdema: NoAscites: NoAssessment of Functional Status: Unable to determine at this timeTemperature Max in 24 hours: Temp (24hrs), Av.1 ?C (98.8 ?F), Min:37?C (98.6 ?F), Max:37.2 ?C (99 ?F) BP 115/53 Pulse 89 Temp 37 ?C (98.6 ?F) (Oral) Resp 20 Ht177.8 cm (5' 10 ) Wt 99.4 kg (219 lb 2.2 oz) SpO2 93% BMI 31.44kg/m?Recent Labs 12/24/179957GLUC 98BUN 7CREAT 0.88NA 138K 3.4*CHLOR 103CO2 26ALB 2.3*HB 11.1*HCT 33.0*WBC 20.94*Potential Signs of Inflammation: leukocytosis, hypoalbuminemia andhyperthermiaALLERGIESNo Known AllergiesCurrent Facility-Administered Medications:LORazepam 2 mg (ATIVAN) 2 mg ORAL q 1 H PRNOrLORazepam 2 mg injection (ATIVAN) 2 mg INTRAVENOUS q 1 H PRNLORazepam 4 mg (ATIVAN) 4 mg ORAL q 1 H PRNOrLORazepam 4 mg injection (ATIVAN) 4 mg INTRAVENOUS q 1 H PRNprenatal vitamin with folic acid 1 mg 1 tablet 1 tablet ORAL DAILYfolic acid 1 mg tab(s) 1 mg ORAL DAILYthiamine 100 mg tab(s) (VITAMIN B1) 100 mg ORAL TIDguaiFENesin-dextromethorpha n 100-10 mg/5 mL 10 mL oral liquid (ROBITUSSINDM) 10 mL ORAL q 4 H PRNiv contrast (radiology procedure) INTRAVENOUS DIRECTED PRNAndenteric contrast (radiology procedure) ORAL DIRECTED PRNbenztropine 0.5 mg tab(s) (COGENTIN) 0.5 mg ORAL BIDpropranolol 20 mg tab(s) (INDERAL) 20 mg ORAL BIDtraZODone 300 mg tab(s) (DESYREL) 300 mg ORAL AT BEDTIMEvenlafaxine ER 150 mg cap(s) (EFFEXOR XR) 150 mg ORAL DAILYpiperacillin-tazobactam 3.375 g in dextrose (iso-osmotic) 50 mL (ZOSYN)3.375 g INTRAVENOUS q 6 H0.9% NaCl 3-5 mL 3-5 mL INTRAVENOUS q [address] 40 mg tab(s) (PROTONIX) 40 mg ORAL DAILY (6 AM)apixaban 5 mg tab(s) (ELIQUIS) 5 mg ORAL BIDlithium carbonate 1,200 mg cap(s) (ESKALITH) 1,200 mg ORAL DAILYvancomycin 1.5 g in D5W 250 mL (VANCOCIN) 0.015 g/kg/dose INTRAVENOUS q 12HRMNT Billing Type: Initial Assess/15 min 3 unitsSIGNATURE: Carlie Rea RD PATIENT NAME: Soraya BowserDATE: December 24, 2017 : 8:13 AM PAGER: [phone] [facility] PROGRESSon 12-24-2017 Protein mass conc HNO ID: [id number] thor: Silvina Rodgers: [facility] MedicineAuthor Type: PhysicianType: Progress NotesFiled: 12/24/2017 5:52 PMNote Text:SERVICE DATE: 12/24/2017SERVICE TIME: 10:34 AMAttending Attestation -Discussed with team, chart reviewed orders reviewed and revised as neededPt seen today at 1425, long discussion re: plan of care. Pt related 'Ithink I aspirated again, I take heavy duty psych meds at night, and I amout for at least 4 hours, sometimes longer, and I have GERD also.' [place] chest pain, on right, that 'goes all the way to my back'. Did notwant anything other than tylenol for pain.Disposition - as below, appreciate both ID and CTS recommendations, wewill follow closely.Silvina Phelps MDHOSPITAL MEDICINE PROGRESS NOTENIGHT AND WEEKEND COVERAGE: From 7am - 7pm, please call [phone] 7pm, please call cross cover pager #[phone] HPI: No ChangeToday the patient is still complaining of pleuritic chest pain on theright side, exacerbated by coughing and breathing. He states that he havecough with whitish sputum. No fever or chills overnight.OBJECTIVEBP 121/68 Pulse 91 Temp (Src) 98.2 (Oral) Resp 20 Ht 5' 10 (1.78m) Wt 219 lb 2.2 oz (99.4kg) SpO2 95% BMI 31.44 kg/(m2).Physical Exam Performed:GENERAL: GENERAL APPEARANCE NCCC: well appearing, alert and in no acutedistressHEART: HEART CCF: regular rate and rhythm, no murmer, gallop or rub,normal, S1, S2, no lifts, heaves, or thrills, PMI not displacedLUNGS: LUNGS CCF: clear to percussion and auscultation and no ralesABDOMEN: ABDOMEN: Soft, nontender, bowel sounds normal, no palpableorganomegaly, no bruits.EXTREMITY: EXTREMITY EXAM: Normal exam of the extremities. No clubbing,cyanosis, or edema.Lines, Drains, and Airways Line Peripheral 12/23/17 2249 Left Antecubital 20 Gauge less than 1 dayMedications: ReviewedDiagnostic tests reviewed:Most recent imagingNo results for input(s): PH, PCO2, PO2, HCO3, BE in the last 168 hours.Recent Labs CA 8.5Recent Labs MCV 101.2*MCH 34.0*MPV 9.2RDW 13.2Recent Labs WBC 20.94*RBC 3.26*HB 11.1*HCT 33.0*PLT 394*MCV 101.2*MCH 34.0*MPV 9.2RDW 13.2METAMYELO 2.0Recent Labs GLUC 98NA 138K 3.4*CHLOR 103CO2 26CREAT 0.88BUN 7ANION 12CA 8.5TPROT 6.9ALB 2.3*TBILI 0.4ALKPHOS 170*AST 29ALT 46Recent Labs TBILI 0.4AST 29ALT 46ALB 2.3*TPROT 6.9ALKPHOS 170*Urinalysis is cleanUrine toxicology is back positive for opiates.Lactate: 0.7TSH: 5.81LqS0m: 5HIV screen is pendingCeliac disease panel is pendingProtein electrophoresis And blood Ig still pendingLithium: 0.8CARE COORDINATION:No Patient Care Coordination Note on file.ASSESSMENT AND PLANAssessment AND Plan, all Hosp ProblemsActive Hospital Problems as of 12/24/2017 Noted - Resolved Cardiovascular Pulmonary embolism, bilateral (HCC) 12/24/2017 - Present Current Assessment AND Plan - Continue Eliquis Elevated blood pressure reading 12/24/2017 - Present Current Assessment AND Plan - Continue to monitor BP- Suspect undiagnosed HTN Sinus tachycardia 12/24/2017 - Present Current Assessment AND Plan - Likely a reaction from infection/pain Pulmonary Lung abscess (HCC) 12/23/2017 - Present Current Assessment AND Plan - CT chest shows change from [id number] to 9X6.4X9.4cm loculated airfluid thin walled abscess in the right upper lobe, associated withmediastinal lymphadenopathy, which is consistent with anaerobic abscesshence anaerobic infection.- s/p IR drain 12/07 at OSH + GBS/ GCS/ Prevotella Oralis- ID consulted, they recommend to continue vancomycin and zosyn and checkMRSA Nares- Thoracic surgery consulted, They recommend to continue antibioticsaccording to ID.- Follow blood culture from [place]- HIV is pending- Urine toxicology is positive for opiates Gastrointestinal Diarrhea 12/22/2016 - Present Current Assessment AND Plan - Stool lactoferrin and culture are pending- Celiac panel is pending- Small suspicion for GI malignancy given hx of chronic diarrhea, weightloss, night sweats, fatigue and presence of bilateral PE.- CT abdomen is pending- Consider GI consult if needed when stool results are back id needed. GERD (gastroesophageal reflux disease) 02/06/2015 - Present Current Assessment AND Plan - Continue home PPI Severe protein-calorie malnutrition (HCC) 12/24/2017 - Present Hematology Thrombocytosis (HCC) 12/24/2017 - Present Leukocytosis 12/24/2017 - Present Current Assessment AND Plan - Likely secondary to lung abscess. Macrocytosis without anemia 12/24/2017 - Present Current Assessment AND Plan - Likely due to alcohol abuse. Infectious Disease Mediastinal lymphadenopathy 12/24/2017 - Present Current Assessment AND Plan - Likely reactive from infection. Psychiatry Anxiety 02/13/2014 - Present Current Assessment AND Plan - Continue with Propanolol Alcohol abuse 03/17/2015 - Present Current Assessment AND Plan - Patient denied alcohol abuse.- CIWA will be implemented. Bipolar 1 disorder (HCC) 12/24/2017 - Present Current Assessment AND Plan - Continue [address] , Trazodone and Seroquel and Venlafaxine. Other Obesity, Class II, BMI 35-39.9 12/23/2017 - Present Current Assessment AND Plan - Counseled- will be followed up by PCP Unintentional weight loss 12/24/2017 - Present Current Assessment AND Plan - See plan for diarrhea as above.Medication and Non-Pharmacologic VTE Prophylaxis/AnticoagulantsAnti coagulant AND Antiplatelet Medications Start Dose Route Frequency Ordered Stop 12/24/17 0000 apixaban 5 mg tab(s) (ELIQUIS) 5 mg ORAL 2 TIMES DAILY 12/23/17 2335 --12/23/17 2300 vte pharmacologic prophylaxis contraindicated (ct,oh)12/23/17 2300 pneumatic compression stockings (ct,oh)12/23/17 2300 activity - mobilize patient (ct,pa)VTE Prophylaxis: VTE prophylaxis appropriatePlan of care discussed with: AttendingSIGNATURE: Malik Morales MD PATIENT NAME: Soraya LaoTE: December 24, 2017 : 10:34 AM PAGER/CONTACT #: [phone] Normal [facility] TSH, 3rd generationon 2017 TSH, 3rd generation 5.470 uIU/mL High 0.358-3.740 [facility] Comment on above: Performed By: #### T SH3 ####[place] [address] Troponin Ion 12-24-2017 Troponin I.cardiac mass conc ng/mL Normal 0.015-0.045 [facility] Comment on above: Performed By: #### T ROP ####[place] [address] Urinalysis, reflexon 018 INR Coag RelTime (Bld) see below Normal [facility] Comment on above: Result Comment: Refl ex to culture is not indicated based onestablished laboratory criteria. Performed By: #### U RIN ####[place] [address] Bacteria LM.HPF #/area (Urine sed) NONE Normal None [facility] Comment on above: Performed By: #### U RIN ####[place] [address] Ep Cells Urine 0.6 /hpf Normal 0.0-5.0 [facility] Comment on above: Performed By: #### U RIN ####[place] [address] Hyaline Cast 0.0 /lpf Normal 0.0-1.0 [facility] Comment on above: Performed By: #### U RIN ####[place] [address] RBC,Urine 0.3 /hpf Normal 0.0-5.0 [facility] Comment on above: Performed By: #### U RIN ####[place] [address] WBC, reflex 0.60 /hpf Normal 0.00-5.00 [facility] Comment on above: Performed By: #### U RIN ####[place] [address] Appearance Nom (U) CLEAR Normal [facility] Comment on above: Performed By: #### U RIN ####[place] [address] Bilirubin Urine Negative Normal Negative [facility] Comment on above: Performed By: #### U RIN ####[place] [address] Color Nom (U) YELLOW Normal [facility] Comment on above: Performed By: #### U RIN ####[place] [address] Glucose Ql (U) Negative Normal Negative [facility] Comment on above: Performed By: #### U RIN ####[place] [address] Hemoglobin,Urine Negative Normal Negative [facility] Comment on above: Performed By: #### U RIN ####[place] [address] Ketone Urine Negative Normal Negative [facility] Comment on above: Performed By: #### U RIN ####[place] [address] Leukocyte esterase Negative Normal Negative [facility] Comment on above: Performed By: #### U RIN ####[place] [address] Nitrite reflex Negative Normal Negative [facility] Comment on above: Performed By: #### U RIN ####[place] [address] pH Test strip (U) 7.0 [pH] Normal 5.0-8.0 [facility] Comment on above: Performed By: #### U RIN ####[place] [address] Protein Urine Negative Normal Negative [facility] Comment on above: Performed By: #### U RIN ####[place] [address] Specific [place], Ur 1.008 Normal 1.005-1.030 [facility] Comment on above: Performed By: #### U RIN ####[place] [address] Urobilinogen,Ur 0.2 EU/dL Normal 0.0-1.0 [facility] Comment on above: Performed By: #### U RIN ####[address], [place] [address] Urine Drug Screenon 12-25-19 18 Urine Benzodiazepine Non-detected Normal Non-Detected [facility] Comment on above: Performed By: #### U DRG2 ####[facility] [place], [place] [address] Urine Cocaine Metab Non-detected Normal Non-Detected [facility] Comment on above: Performed By: #### U DRG2 ####[facility] [place], [place] [address] Urine Opiate see below Normal Non-Detected [facility] Comment on above: Result Comment: Dete cted (unconfirmed) Performed By: #### U DRG2 ####[place] [address] Urine THC Non-detected Normal Non-Detected [facility] Comment on above: Result Comment: Urin e Drug Cutoff LevelsUrine Amphetamine 500 ng/mLUrine Barbiturate 200 ng/mLUrine Benzodiazepines 200 ng/mLUrine Cocaine 150 ng/mLUrine Phencyclidine (PCP) 25 ng/mLUrine Opiates 300 ng/mLUrine THC 50 ng/mLThe results of these analytes are unconfirmed and reportedqualitatively as detected or non-detected relative to the cutoffvalue. Detected results indicate the sample is likely to containthe analyte. Non-detected results indicate that either the sampledoes not contain the analyte or it is present in concentrations belowthe cutoff level. This drug screen should be used for medical diagnosticpurposes only. Performed By: #### U DRG2 ####[facility] [place], [place] [address] Urine Amphetamine Non-detected Normal Non-Detected [facility] Comment on above: Performed By: #### U DRG2 ####[address] [address] Urine Barbiturates Non-detected Normal Non-Detected [facility] Comment on above: Performed By: #### U DRG2 ####[address] [address] Urine PCP Non-detected Normal Non-Detected [facility] Comment on above: Performed By: #### U DRG2 ####[place] [address] HOSPon 12-23-2017 HOSP Patient:Armida Bowser PMRN: Height:5' 10 (1.778 m)Weight:216 lb 8 oz (98.204 kg)Outpatient Medications as of 12/25/17:apixaban (ELIQUIS) 5 mg tab(s)lithium carbonate 600 mg capsulebenztropine (COGENTIN) 0.5 mg tabletvenlafaxine XR (EFFEXOR XR) 150 mg 24 hr capsulepropranolol (INDERAL) 20 mg tabletQUEtiapine (SEROQUEL) 100 mg tablettraZODone HCl 300 mg tabletomeprazole (PRILOSEC) 20 mg capsuleAdmission/Clinic Administered Medications as of 12/25/17:LORazepam 2 mg (ATIVAN)LORazepam 2 mg injection (ATIVAN)LORazepam 4 mg (ATIVAN)LORazepam 4 mg injection (ATIVAN) vitamin with folic acid 1 mg 1 tabletfolic acid 1 mg tab(s)thiamine 100 mg tab(s) (VITAMIN B1)iv contrast (radiology procedure)codeine-guaiFENesin 5 mL oral liquid (ROBITUSSIN AC)benztropine 0.5 mg tab(s) (COGENTIN)propranolol 20 mg tab(s) (INDERAL)traZODone 300 mg tab(s) (DESYREL)venlafaxine ER 150 mg cap(s) (EFFEXOR XR)piperacillin-tazobactam 3.375 g in dextrose (iso-osmotic) 50 mL (ZOSYN)0.9% NaCl 3-[address] 40 mg tab(s) (PROTONIX)apixaban 5 mg tab(s) (ELIQUIS)lithium carbonate 1,200 mg cap(s) (ESKALITH)QUEtiapine 200 mg tab(s) (SEROquel)vancomycin 1.5 g in D5W 250 mL (VANCOCIN)Problem List:Pain in joint, shoulder region [M25.519]Pain in joint, upper arm [M25.529]Impingement syndrome of right shoulder [M75.41]Anxiety [F41.9]Counseling and coordination of care [Z71.89]Cellulitis and abscess of unspecified site [L03.90, L02.91]GERD (gastroesophageal reflux disease) [K21.9]Alcohol abuse [F10.10]Diarrhea [R19.7]Change in bowel habit [R19.4]History of esophagogastroduodenoscopy (EGD) [Z98.890]Obesity, Class II, BMI 35-39.9 [E66.9]Lung abscess (HCC) [J85.2]Bipolar 1 disorder (HCC) [F31.9]Elevated blood pressure reading [R03.0]Unintentional weight loss [R63.4]Mediastinal lymphadenopathy [R59.0]Sinus tachycardia [R00.0]Thrombocytosis (HCC) [D47.3]Leukocytosis [D72.829]Macrocytosis without anemia [D75.89]Pulmonary embolism, bilateral (HCC) [I26.99]Severe protein-calorie malnutrition (HCC) [E43]Allergies:No Known AllergiesDate Verified:12/24/17Lab ValuesLab Value Units Date High LowPOTA* 3.6 mEq/L 12/25/2017 5.1 3.5HEMA* 34.2 % 12/25/2017 51.0 40.1Progress Notes ():Sophia Glynn MD, 12/24/2017 12:08 AM WrittenHOSPITAL MEDICINE HISTORY AND PHYSICALPCP: OSMANY FrenchUBJECTAFRICAChiovidio Complaint: Cough, SOB and chest pain.HPI:A 52 year old male was admitted from [facility]. He has cough, SOB and chestpain that started 2 weeks ago.On December 10 he was admitted to the ED because of bilateral PE, which wastreated with heparin drip. During his course of hospitalization he developedchest pain, fever and productive cough. He was found to have a 79V47N4 cm rightupper lobe abscess. Abscess was drained during hospitalization. He was thendischarged on Augmentin and Eliquis.?Today, he presented to the ED with chest pain graded as 4/10, radiates to hisback and is pleuritis in nature. Pain is increased with change in position andcough. Patient tried tylenol and ibuprofen to relieve the pain and that workedfor a short period of time. Pain is decreasing in intensity.Pain is associatedwith SOB and cough. Cough is productive, white phlegm with red bloody strikes.Patient also reports fever, chills and sweats. [facility] 9X6.4X9cm loculated air fluid right upper lobe abscess, andmediastinal adenopathy.?Patient reports loss of appetite, fatigue and 14 pounds unintentional weightloss over a period of 1 month.PAST MEDICAL HISTORYDiagnosis Date- Bipolar 1 disorder (HCC)- GERD (gastroesophageal reflux disease)- Left elbow pain- Shoulder pain, rightPAST SURGICAL HISTORYProcedure Laterality Date- PAST SURGICAL HISTORY OF Right 1998 right wrist debridement (s/p infection of pins from repair)FAMILY HISTORYProblem Relation Age of Onset- Adopted: Yes- congestive heart failure [OTHER] Maternal Grandmother- Cancer FatherSocial HistorySubstance Use Topics- Smoking status: Never Smoker- Smokeless tobacco: Never Used- Alcohol use Yes Comment: rareMedications: ReviewedAllergies: ALLERGIESNo Known AllergiesReview of Systems:Significant for weight loss, fever, chills, fatigue, night sweats, decreasedactivity levels and decreased appetite.Unilateral throbbing headaches.Patient also reported chronic diarrhea and heartburn.Chest pain, productive cough, hemoptysis and SOB.All other systems reviewed were negative.OBJECTIVE:PHYSICAL EXAMBP 150/86 Pulse 96 Temp (Src) 99 (Oral) Resp 18 Ht 5' 10 (1.78m) Wt221 lb 1.9 oz (100.3kg) SpO2 99% BMI 31.73 kg/(m2).Physical Exam Performed:GENERAL: Alert, no distress, cooperativeSKIN: Skin color, texture, turgor normal. No rashes or lesions.LUNGS: Positive findings: rales Right lobe, bronchial breath sounds right lobe.CARDIAC: Normal S1 and S2; no rubs, murmurs, or gallopsABDOMEN: Abdomen soft, non-tender, BS normal, No masses or organomegalyEXTREMITIES: Extremities normal, no deformities, edema, clubbing or skindiscoloration. Good capillary refill.NEURO:Alert and oriented to place, time and person.Lines, Drains, and Airways Line Peripheral 12/23/17 2249 Left Antecubital 20 Gauge less than 1 dayDiagnostic tests reviewed: Most recent labs and imaging results:Creatinine: 07/28/2017: 0.89CBC: WBC: 24.8, Hb:12.7, Platlets: 490, RBC count: 3.75Electrolytes: Sodium: 134??Imaging:CT chest 07/29/3027: Loculated right upper lobe abscess measuring 9X6.4X9.6cm +mediastinal adenopathy.?Sophia Glynn MD, MD 12/24/2017 12:22 AM Edited- Continue antibiotics ( vancomycin and Zosyn)- Consider pulmonary consult.- Upload imaging records from [facility]- Follow blood culture from [facility]- Check HIV and HbA1C- Investigate underlying reasons for lung abscess- Check lactate- CT chest shows change from [id number] to 9X6.4X9.4cm loculated air fluid thinwalled abscess in the right upper lobe, associated with mediastinallymphadenopathy, which is consistent with anaerobic abscess hence anaerobicinfection.Previous Guy Glynn MD, MD 12/24/2017 12:18 AM Written- Continue EliquisSophia Glynn MD, MD 12/24/2017 12:18 AM Written- Continue home PPISophia Glynn MD, MD 12/24/2017 12:20 AM Written- Stool lactoferrin and culture will be checked- small suspicion for GI malignancy given hx of chronic diarrhea, weight loss,night sweats, fatigue and presence of bilateral PE.- Consider CT abdomen.- Consider GI consult.Sophia Glynn MD, MD 12/24/2017 12:23 AM Written- Patient denied alcohol abuse.- CIWA will be implemented.Sophia Glynn MD, MD 12/24/2017 12:26 AM Edited- Continue [address] , Trazodone and Seroquel and Venlafaxine.Previous Guy Glynn MD, MD 12/24/2017 12:24 AM Written- Counseled- will be followed up by PCPSophia Glynn MD, MD 12/24/2017 12:30 AM Written- Continue to monitor BP- Suspect undiagnosed HTNSophia Glynn MD, MD 12/24/2017 12:30 AM Written- See plan for diarrhea as above.Sophia Glynn MD, MD 12/24/2017 12:31 AM Written- Likely reactive from infection.- Will call [facility] tomorrow to obtain previous results of CT chest.Sophia Glynn MD, MD 12/24/2017 12:31 AM Written- Likely a reaction from infection/painBatool MD Glynn MD 12/24/2017 12:32 AM Written- Likely secondary to lung abscess.Sophia Glynn MD, MD 12/24/2017 12:33 AM Written- Likely due to alcohol abuse.Sophia Glynn MD, MD 12/24/2017 12:37 AM Attested At testation signed by Silvina Phelps at 12/24/2017 2:16 PMDiscussed with team this morning, agreed with plan of care but did advisedconsult pulm/CTS for likely need for either CT or VATS due to acute on chroniclung abscess.See also today's follow up progress note. SERVI DATE: 12/24/2017SERVICE TIME: 12:33 [facility] PHYSICALPCP: [facility]IVECam[facility] Complaint: Cough, SOB and chest pain.HPI:A 52 year old male was admitted from [facility]. He has cough, SOB and chestpain that started 2 weeks ago.On December 10 he was admitted to the ED because of bilateral PE, which wastreated with heparin drip. During his course of hospitalization he developedchest pain, fever and productive cough. He was found to have a 53S53R8 cm rightupper lobe abscess. Abscess was drained during hospitalization. He was thendischarged on Augmentin and Eliquis.?Today, he presented to the ED with chest pain graded as 4/10, radiates to hisback and is pleuritis in nature. Pain is increased with change in position andcough. Patient tried tylenol and ibuprofen to relieve the pain and that workedfor a short period of time. Pain is decreasing in intensity.Pain is associatedwith SOB and cough. Cough is productive, white phlegm with red bloody strikes.Patient also reports fever, chills and sweats. [facility] 9X6.4X9cm loculated air fluid right upper lobe abscess, andmediastinal adenopathy.?Patient reports loss of appetite, fatigue and 14 pounds unintentional weightloss over a period of 1 month.PAST MEDICAL HISTORYDiagnosis Date- Bipolar 1 disorder (HCC)- GERD (gastroesophageal reflux disease)- Left elbow pain- Shoulder pain, rightPAST SURGICAL HISTORYProcedure Laterality Date- PAST SURGICAL HISTORY OF Right 1998 right wrist debridement (s/p infection of pins from repair)FAMILY HISTORYProblem Relation Age of Onset- Adopted: Yes- congestive heart failure [OTHER] Maternal Grandmother- Cancer FatherSocial HistorySubstance Use Topics- Smoking status: Never Smoker- Smokeless tobacco: Never Used- Alcohol use Yes Comment: rareMedications: ReviewedAllergies: ALLERGIESNo Known AllergiesReview of Systems:Significant for weight loss, fever, chills, fatigue, night sweats, decreasedactivity levels and decreased appetite.Unilateral throbbing headaches.Patient also reported chronic diarrhea and heartburn.Chest pain, productive cough, hemoptysis and SOB.All other systems reviewed were negative.OBJECTIVE:PHYSICAL EXAMBP 150/86 Pulse 96 Temp (Src) 99 (Oral) Resp 18 Ht 5' 10 (1.78m) Wt221 lb 1.9 oz (100.3kg) SpO2 99% BMI 31.73 kg/(m2).Physical Exam Performed:GENERAL: Alert, no distress, cooperativeSKIN: Skin color, texture, turgor normal. No rashes or lesions.LUNGS: Positive findings: rales Right lobe, bronchial breath sounds right lobe.CARDIAC: Normal S1 and S2; no rubs, murmurs, or gallopsABDOMEN: Abdomen soft, non-tender, BS normal, No masses or organomegalyEXTREMITIES: Extremities normal, no deformities, edema, clubbing or skindiscoloration. Good capillary refill.NEURO:Alert and oriented to place, time and person.Lines, Drains, and Airways Line Peripheral 12/23/17 2249 Left Antecubital 20 Gauge less than 1 dayDiagnostic tests reviewed: Most recent labs and imaging results:Creatinine: 07/28/2017: 0.89CBC: WBC: 24.8, Hb:12.7, Platlets: 490, RBC count: 3.75Electrolytes: Sodium: 134??Imaging:CT chest 07/29/3027: Loculated right upper lobe abscess measuring 9X6.4X9.6cm +mediastinal adenopathy.?CARE COORDINATION:No Patient Care Coordination Note on file.Assessment AND Plan, Hosp Problems our Service AddressedCardiovascularSinus tachycardia - Likely a reaction from infection/painElevated blood pressure reading - Continue to monitor BP- Suspect undiagnosed HTNPulmonary embolism, bilateral (HCC) - Continue EliquisPulmonaryLung abscess (HCC) - Continue antibiotics ( vancomycin and Zosyn)- Consider pulmonary consult.- Upload imaging records from [facility]- Follow blood culture from [facility]- Check HIV and HbA1C- Investigate underlying reasons for lung abscess- Check lactate- CT chest shows change from [id number] to 9X6.4X9.4cm loculated air fluid thinwalled abscess in the right upper lobe, associated with mediastinallymphadenopathy, which is consistent with anaerobic abscess hence anaerobicinfection.Gastrointes tinalGERD (gastroesophageal reflux disease) - Continue home PPIDiarrhea - Stool lactoferrin and culture will be checked- small suspicion for GI malignancy given hx of chronic diarrhea, weight loss,night sweats, fatigue and presence of bilateral PE.- Consider CT abdomen.- Consider GI consult.HematologyMacrocytosis without anemia - Likely due to alcohol abuse.Leukocytosis - Likely secondary to lung abscess.Infectious DiseaseMediastinal lymphadenopathy - Likely reactive from infection.- Will call [facility] tomorrow to obtain previous results of CT chest.PsychiatryBipolar 1 disorder (HCC) - Continue [address] , Trazodone and Seroquel and Venlafaxine.Alcohol abuse - Patient denied alcohol abuse.- CIWA will be implemented.Anxiety - Continue with PropanololOtherUnintentional weight loss - See plan for diarrhea as above.Obesity, Class II, BMI 35-39.9 - Counseled- will be followed up by PCPMedication and Non-Pharmacologic VTE Prophylaxis/AnticoagulantsAnti coagulant AND Antiplatelet Medications Start Dose Route Frequency Ordered Stop 12/24/17 0000 apixaban 5 mg tab(s) (ELIQUIS) 5 mg ORAL 2 TIMES DAILY 12/23/17 2335 --VTE Prophylaxis: Contraindicated due to therapeutic anticoagulationSIGNATURE: Sophia Glynn MD PATIENT NAME: Soraya Avilez: December 24, 2017 : 12:33 AM PAGER/CONTACT #: [phone] MD Gretta, 12/24/2017 12:35 AM Written- Continue with Kristofer Rea RD, RD 12/24/2017 12:31 PM SignedNUTRITION THERAPY INITIAL ASSESSMENTSERVICE DATE: 12/24/2017SERVICE TIME: 12:25 PMRECOMMENDED MALNUTRITION DIAGNOSIS: SEVERE PROTEIN-CALORIE MALNUTRITIONIn the context of Social/Environmental Circumstance based on:Unintentional Weight Loss: >10% in 6 monthsInsufficient Energy Intake: less than or equal to 50% for greater than or equalto 1 monthNUTRITION CARE PLAN:Problem, Etiology and Signs/Symptoms:Suboptimal protein/energy intake related to feelings of depression as evidencedby patient interview.Intervention:Ensure Enlive BID To provide 350 kcal and 20 g protein per servingMagic Cup QD to provide 290 kcal and 9g protein per servingMonitor and Evaluation:Goal: Meet >75% of estimated needsMonitor fluid/electrolyte balanceMonitor labs, I/Os, vital signs, weightDischarge Nutrition Recommendations:Diet: Regular Reason for Assessment: [facility] 2Per HPI: A 52 year old male was admitted from [facility]. He has cough, SOB andchest pain that started 2 weeks ago. He was treated for bilateral PE and [id number] cm right upper lobe abscess drained. He was DC'd on augmentin andeliquis. Today patient presents with CP pleuritic in nature associated with SOB,productive cough, fever, chills, and sweat. [facility] 4x9 loculated air fluid right upper lobe abscess.?Patient reportsloss of appetite, fatigue and 14 pounds unintentional weight loss over a periodof 1 month.Active Hospital Problems Diagnosis Date Noted- Pulmonary embolism, bilateral ([facility]) 12/24/2017 Priority: A- Lung abscess ([facility]) 12/23/2017 Priority: A- Diarrhea 12/22/2016 Priority: L Overview Note: Added automatically from request for surgery [id number]- Bipolar 1 disorder ([facility]) 12/24/2017- Elevated blood pressure reading 12/24/2017- Unintentional weight loss 12/24/2017- Mediastinal lymphadenopathy 12/24/2017- Sinus tachycardia 12/24/2017- Thrombocytosis ([facility]) 12/24/2017- Leukocytosis 12/24/2017- Macrocytosis without anemia 12/24/2017- Obesity, Class II, BMI 35-39.9 12/23/2017- Alcohol abuse 03/17/2015- GERD (gastroesophageal reflux disease) 02/06/2015- Anxiety 02/13/2014PAST MEDICAL HISTORYDiagnosis Date- Bipolar 1 disorder (HCC)- GERD (gastroesophageal reflux disease)- Left elbow pain- Shoulder pain, rightPAST SURGICAL HISTORYProcedure Laterality Date- PAST SURGICAL HISTORY OF Right 1998 right wrist debridement (s/p infection of pins from repair)Met with patient who reports being on the down slide of his bipolar disorder.For the past 1 month patient has not had the motivation to make meals forhimself. In the past when he felt depressed, he was able to keep up with hisoral intake.Present Diet Order: RegularEnteral Access: N/ANutritional Intake Prior to Admission: <50% estimated energy need over the past1 month(s). Suspect <75% estimated energy needs for the pas 7 months due tosignificant weight loss. He reports mainly consuming liquids over the pastmonth; milk, V8, yogurt, and water. He finds it difficult to cook for 1 andoften will not cook. Encouraged frozen meals but patient stated he is tired ofthose. Encouraged adequate intake and using supplements.GI symptoms: noneAbdominal Exam: abdomen is softIs the patient having any pain that is interfering with oral/enteral intake? NoANTHROPOMETRICSHeight: 177.8 cm (5' 10 )Admission Weight: 100.3 kg (221 lb 1.9 oz)Current Weight: 99.4 kg (219 lb 2.2 oz)Body mass index is 31.44 kg/m?. class 1 obesityWeight has decreased by 12.6 kg over ~6 months representing 11.3 % weightchange. Clinically significant.Last Wt12/24/17 : 99.4 kg (219 lb 2.2 oz)06/21/17 : 112 kg (247 lb)03/01/17 : 109.8 kg (242 lb)08/04/16 : 108.4 kg (239 lb)09/01/15 : 103 kg (227 lb)05/05/15 : 102.5 kg (226 lb)03/17/15 : 89.4 kg (197 lb)02/10/15 : 93.9 kg (207 lb)02/06/15 : 86.2 kg (190 lb)11/19/14 : 91 kg (200 lb 9.6 oz)02/13/14 : 93.2 kg (205 lb 6.4 oz)10/09/13 : 92.3 kg (203 lb 6.4 oz)07/26/13 : 96.2 kg (212 lb)02/22/13 : 97.1 kg (214 lb)11/27/12 : 96.6 kg (213 lb)10/12/12 : 98.9 kg (218 lb)[place] Body Weight: 75.5kgResting Metabolic Rate: 1853Estimated kilocalorie needs: 0843-6896 kilocalories determined by 25-30 kcal/kgEstimated protein needs: 98-128 grams determined by 1.3-1.7 g/kg [place] weightEstimated fluid needs: 1890+ milliliters based on 1 mL per kcalNUTRITION FOCUSED PHYSICAL EXAM:Subcutaneous Fat LossOrbital Mild - heavy bags under eyesTriceps MildMid-axillary at the iliac crest No fat lossMuscle Loss Locations:Temporalis No muscle lossPectoralis No muscle lossDeltoids MildInterosseous No muscle lossLatissimus dorsi, trapezius No muscle lossQuadriceps MildGastrocnemius No muscle lossPotential micronutrient deficiency revealed in: No deficiency identifiedEdema: NoAscites: NoAssessment of Functional Status: Unable to determine at this timeTemperature Max in 24 hours: Temp (24hrs), Av.1 ?C (98.8 ?F), Min:37 ?C(98.6 ?F), Max:37.2 ?C (99 ?F) BP 115/53 Pulse 89 Temp 37 ?C (98.6 ?F) (Oral) Resp 20 Ht 177.8 cm(5' 10 ) Wt 99.4 kg (219 lb 2.2 oz) SpO2 93% BMI 31.44 kg/m?Recent Labs 12/24/179957GLUC 98BUN 7CREAT 0.88NA 138K 3.4*CHLOR 103CO2 26ALB 2.3*HB 11.1*HCT 33.0*WBC 20.94*Potential Signs of Inflammation: leukocytosis, hypoalbuminemia and hyperthermiaALLERGIESNo Known AllergiesCurrent Facility-Administered Medications:LORazepam 2 mg (ATIVAN) 2 mg ORAL q 1 H PRNOrLORazepam 2 mg injection (ATIVAN) 2 mg INTRAVENOUS q 1 H PRNLORazepam 4 mg (ATIVAN) 4 mg ORAL q 1 H PRNOrLORazepam 4 mg injection (ATIVAN) 4 mg INTRAVENOUS q 1 H PRNprenatal vitamin with folic acid 1 mg 1 tablet 1 tablet ORAL DAILYfolic acid 1 mg tab(s) 1 mg ORAL DAILYthiamine 100 mg tab(s) (VITAMIN B1) 100 mg ORAL TIDguaiFENesin-dextromethorpha n 100-10 mg/5 mL 10 mL oral liquid (ROBITUSSIN DM) 10mL ORAL q 4 H PRNiv contrast (radiology procedure) INTRAVENOUS DIRECTED PRNAndenteric contrast (radiology procedure) ORAL DIRECTED PRNbenztropine 0.5 mg tab(s) (COGENTIN) 0.5 mg ORAL BIDpropranolol 20 mg tab(s) (INDERAL) 20 mg ORAL BIDtraZODone 300 mg tab(s) (DESYREL) 300 mg ORAL AT BEDTIMEvenlafaxine ER 150 mg cap(s) (EFFEXOR XR) 150 mg ORAL DAILYpiperacillin-tazobactam 3.375 g in dextrose (iso-osmotic) 50 mL (ZOSYN) 3.375 gINTRAVENOUS q 6 H0.9% NaCl 3-5 mL 3-5 mL INTRAVENOUS q [address] 40 mg tab(s) (PROTONIX) 40 mg ORAL DAILY (6 AM)apixaban 5 mg tab(s) (ELIQUIS) 5 mg ORAL BIDlithium carbonate 1,200 mg cap(s) (ESKALITH) 1,200 mg ORAL DAILYvancomycin 1.5 g in D5W 250 mL (VANCOCIN) 0.015 g/kg/dose INTRAVENOUS q 12 HRMNT Billing Type: Initial Assess/15 min 3 unitsSIGNATURE: Carlie Rea RD PATIENT NAME: Soraya Avilez: December 24, 2017 : 8:13 AM PAGER: [phone] Morales MD, 12/24/2017 12:42 PM [facility] MEDICINE PROGRESS NOTENIGHT AND WEEKEND COVERAGE: From 7am - 7pm, please call [phone] 7pm, please call cross cover pager #[phone] HPI: No ChangeToday the patient is still complaining of pleuritic chest pain on the rightside, exacerbated by coughing and breathing. He states that he have cough withwhitish sputum. No fever or chills overnight.OBJECTIVEBP 121/68 Pulse 91 Temp (Src) 98.2 (Oral) Resp 20 Ht 5' 10 (1.78m) Wt219 lb 2.2 oz (99.4kg) SpO2 95% BMI 31.44 kg/(m2).Physical Exam Performed:GENERAL: GENERAL APPEARANCE NCCC: well appearing, alert and in no acutedistressHEART: HEART CCF: regular rate and rhythm, no murmer, gallop or rub, normal,S1, S2, no lifts, heaves, or thrills, PMI not displacedLUNGS: LUNGS CCF: clear to percussion and auscultation and no ralesABDOMEN: ABDOMEN: Soft, nontender, bowel sounds normal, no palpableorganomegaly, no bruits.EXTREMITY: EXTREMITY EXAM: Normal exam of the extremities. No clubbing,cyanosis, or edema.Lines, Drains, and Airways Line Peripheral 12/23/17 2249 Left Antecubital 20 Gauge less than 1 dayMedications: ReviewedDiagnostic tests reviewed:Most recent imagingNo results for input(s): PH, PCO2, PO2, HCO3, BE in the last 168 hours.Recent Labs CA 8.5Recent Labs MCV 101.2*MCH 34.0*MPV 9.2RDW 13.2Recent Labs WBC 20.94*RBC 3.26*HB 11.1*HCT 33.0*PLT 394*MCV 101.2*MCH 34.0*MPV 9.2RDW 13.2METAMYELO 2.0Recent Labs GLUC 98NA 138K 3.4*CHLOR 103CO2 26CREAT 0.88BUN 7ANION 12CA 8.5TPROT 6.9ALB 2.3*TBILI 0.4ALKPHOS 170*AST 29ALT 46Recent Labs TBILI 0.4AST 29ALT 46ALB 2.3*TPROT 6.9ALKPHOS 170*Urinalysis is cleanUrine toxicology is back positive for opiates.Lactate: 0.7TSH: 5.03OeF5m: 5HIV screen is pendingCeliac disease panel is pendingProtein electrophoresis And blood Ig still pendingLithium: 0.8Previous Delon Morales MD, 12/24/2017 9:31 AM Written- Continue Tj Morales MD, 12/24/2017 9:31 AM Written- Continue to monitor BP- Suspect undiagnosed HTNMalik Morales MD, 12/24/2017 2:55 PM Edited- CT chest shows change from 85G01H7mc to 9X6.4X9.4cm loculated air fluid thinwalled abscess in the right upper lobe, associated with mediastinallymphadenopathy, which is consistent with anaerobic abscess hence anaerobicinfection.- s/p IR drain 12/07 at OSH + GBS/ GCS/ Prevotella Oralis- ID consulted, they recommend to continue vancomycin and zosyn and check MRSANares- Thoracic surgery consulted, They recommend to continue antibiotics accordingto ID.- Follow blood culture from [facility]- HIV is pending- Urine toxicology is positive for opiatesPrevious Delon Morales MD, 12/24/2017 3:01 PM Edited- Stool lactoferrin and culture are pending- Celiac panel is pending- Small suspicion for GI malignancy given hx of chronic diarrhea, weight loss,night sweats, fatigue and presence of bilateral PE.- CT abdomen is pending- Consider GI consult if needed when stool results are back id needed.Previous Delon Morales MD, MD 12/24/2017 9:34 AM Written- Continue home Jimmy Morales MD, MD 12/24/2017 3:01 PM Edited- Likely reactive from infection.Previous Violeta Phelps MD 12/24/2017 5:52 PM SignedSERVICE DATE: 12/24/2017SERVICE TIME: 10:34 AMAttending Attestation -Discussed with team, chart reviewed orders reviewed and revised as neededPt seen today at 1425, long discussion re: plan of care. Pt related 'I think Iaspirated again, I take heavy duty psych meds at night, and I am out for atleast 4 hours, sometimes longer, and I have GERD also.' Had some chest pain, onright, that 'goes all the way to my back'. Did not want anything other thantylenol for pain.Disposition - as below, appreciate both ID and CTS recommendations, we willfollow closely.Silvina Phelps MDHOSPITAL MEDICINE PROGRESS NOTENIGHT AND WEEKEND COVERAGE: From 7am - 7pm, please call [phone] 7pm, please call cross cover pager #[phone] HPI: No ChangeToday the patient is still complaining of pleuritic chest pain on the rightside, exacerbated by coughing and breathing. He states that he have cough withwhitish sputum. No fever or chills overnight.OBJECTIVEBP 121/68 Pulse 91 Temp (Src) 98.2 (Oral) Resp 20 Ht 5' 10 (1.78m) Wt219 lb 2.2 oz (99.4kg) SpO2 95% BMI 31.44 kg/(m2).Physical Exam Performed:GENERAL: GENERAL APPEARANCE NCCC: well appearing, alert and in no acutedistressHEART: HEART CCF: regular rate and rhythm, no murmer, gallop or rub, normal,S1, S2, no lifts, heaves, or thrills, PMI not displacedLUNGS: LUNGS CCF: clear to percussion and auscultation and no ralesABDOMEN: ABDOMEN: Soft, nontender, bowel sounds normal, no palpableorganomegaly, no bruits.EXTREMITY: EXTREMITY EXAM: Normal exam of the extremities. No clubbing,cyanosis, or edema.Lines, Drains, and Airways Line Peripheral 12/23/17 2249 Left Antecubital 20 Gauge less than 1 dayMedications: ReviewedDiagnostic tests reviewed:Most recent imagingNo results for input(s): PH, PCO2, PO2, HCO3, BE in the last 168 hours.Recent Labs CA 8.5Recent Labs MCV 101.2*MCH 34.0*MPV 9.2RDW 13.2Recent Labs WBC 20.94*RBC 3.26*HB 11.1*HCT 33.0*PLT 394*MCV 101.2*MCH 34.0*MPV 9.2RDW 13.2METAMYELO 2.0Recent Labs GLUC 98NA 138K 3.4*CHLOR 103CO2 26CREAT 0.88BUN 7ANION 12CA 8.5TPROT 6.9ALB 2.3*TBILI 0.4ALKPHOS 170*AST 29ALT 46Recent Labs TBILI 0.4AST 29ALT 46ALB 2.3*TPROT 6.9ALKPHOS 170*Urinalysis is cleanUrine toxicology is back positive for opiates.Lactate: 0.7TSH: 5.27TzW0l: 5HIV screen is pendingCeliac disease panel is pendingProtein electrophoresis And blood Ig still pendingLithium: 0.8CARE COORDINATION:No Patient Care Coordination Note on file.ASSESSMENT AND PLANAssessment AND Plan, all Hosp ProblemsActive Hospital Problems as of 12/24/2017 Noted - Resolved Cardiovascular Pulmonary embolism, bilateral (HCC) 12/24/2017 - Present Current Assessment AND Plan - Continue Eliquis Elevated blood pressure reading 12/24/2017 - Present Current Assessment AND Plan - Continue to monitor BP- Suspect undiagnosed HTN Sinus tachycardia 12/24/2017 - Present Current Assessment AND Plan - Likely a reaction from infection/pain Pulmonary Lung abscess (HCC) 12/23/2017 - Present Current Assessment AND Plan - CT chest shows change from [id number] to 9X6.4X9.4cm loculated air fluid thinwalled abscess in the right upper lobe, associated with mediastinallymphadenopathy, which is consistent with anaerobic abscess hence anaerobicinfection.- s/p IR drain 12/07 at OSH + GBS/ GCS/ Prevotella Oralis- ID consulted, they recommend to continue vancomycin and zosyn and check MRSANares- Thoracic surgery consulted, They recommend to continue antibiotics accordingto ID.- Follow blood culture from [facility]- HIV is pending- Urine toxicology is positive for opiates Gastrointestinal Diarrhea 12/22/2016 - Present Current Assessment AND Plan - Stool lactoferrin and culture are pending- Celiac panel is pending- Small suspicion for GI malignancy given hx of chronic diarrhea, weight loss,night sweats, fatigue and presence of bilateral PE.- CT abdomen is pending- Consider GI consult if needed when stool results are back id needed. GERD (gastroesophageal reflux disease) 02/06/2015 - Present Current Assessment AND Plan - Continue home PPI Severe protein-calorie malnutrition (HCC) 12/24/2017 - Present Hematology Thrombocytosis (HCC) 12/24/2017 - Present Leukocytosis 12/24/2017 - Present Current Assessment AND Plan - Likely secondary to lung abscess. Macrocytosis without anemia 12/24/2017 - Present Current Assessment AND Plan - Likely due to alcohol abuse. Infectious Disease Mediastinal lymphadenopathy 12/24/2017 - Present Current Assessment AND Plan - Likely reactive from infection. Psychiatry Anxiety 02/13/2014 - Present Current Assessment AND Plan - Continue with Propanolol Alcohol abuse 03/17/2015 - Present Current Assessment AND Plan - Patient denied alcohol abuse.- CIWA will be implemented. Bipolar 1 disorder (HCC) 12/24/2017 - Present Current Assessment AND Plan - Continue [address] , Trazodone and Seroquel and Venlafaxine. Other Obesity, Class II, BMI 35-39.9 12/23/2017 - Present Current Assessment AND Plan - Counseled- will be followed up by PCP Unintentional weight loss 12/24/2017 - Present Current Assessment AND Plan - See plan for diarrhea as above.Medication and Non-Pharmacologic VTE Prophylaxis/AnticoagulantsAnti coagulant AND Antiplatelet Medications Start Dose Route Frequency Ordered Stop 12/24/17 0000 apixaban 5 mg tab(s) (ELIQUIS) 5 mg ORAL 2 TIMES DAILY 12/23/17 2335 --12/23/17 2300 vte pharmacologic prophylaxis contraindicated (ct,pa)12/23/17 2300 pneumatic compression stockings (ct,pa)12/23/17 2300 activity - mobilize patient (ct,pa)VTE Prophylaxis: VTE prophylaxis appropriatePlan of care discussed with: AttendingSIGNATURE: Malik Morales MD PATIENT NAME: Soraya BowserDATE: December 24, 2017 : 10:34 AM PAGER/CONTACT #: [phone] Eliseo Cantrell MD 12/24/2017 6:37 PM SignedCONSULT: INFECTIOUS DISEASE SERVICESERVICE DATE: 12/24/2017SERVICE TIME: 11:13 AMREASON FOR CONSULT: Right Lung AbscessREQUESTING PHYSICIAN:PRIMARY CARE PHYSICIAN: OSMANY FrenchubjectiveMrDelores Bowser is a 52 year old male who was directly admitted from [facility]. Hepresent with shortness of breath and chest pain. He was recently admitted there11/2017 with diagnosis of bilateral PE, subsequently found to have a 12 x 12 x 8cm right upper lobe abscess which was drained during that hospitalization.Reviewed of cultures from 12/07 show GBS/ GCS and Prevotella Oralis. He wasdischarged home on PO Augmentin. At present he is c/o fevers/ chills/ sweats/ CPand hemoptysis. CT chest done at [facility] significant for 9 x 6, 4 x 9 cmloculated air fluid collection right upper lobe.Review of [facility] labs; WBC 24. [facility]red [facility] for furtherevaluation. Admitting vitals temp 99, HR 96, normotensive , RA. WBC 20, LA 0.7.Blood culture obtained. He was started on Vancomycin/ Zosyn, [facility]. IR guided abscess drain has been ordered. CT abd/pelvis pending. ID c/sfor further management.patient endorses aspiration at night. States he is on heavy sedative psychoticmedications HS, as well as diagnosis with GERD and often wakes up choking/aspirating. [facility]PAST MEDICAL HISTORYDiagnosis Date- Bipolar 1 disorder (HCC)- GERD (gastroesophageal reflux disease)- Left elbow pain- Shoulder pain, rightPAST SURGICAL HISTORYProcedure Laterality Date- PAST SURGICAL HISTORY OF Right 1998 right wrist debridement (s/p infection of pins from repair)FAMILY HISTORYProblem Relation Age of Onset- Adopted: Yes- congestive heart failure [OTHER] Maternal Grandmother- Cancer FatherSocial HistorySubstance Use Topics- Smoking status: Never Smoker- Smokeless tobacco: Never Used- Alcohol use Yes Comment: rarePrescriptions Prior to Admission:apixaban (ELIQUIS) 5 mg tab(s) Take 5 mg by mouth twice daily. Disp: Rfl:lithium carbonate 600 mg capsule Take 1,200 mg by mouth once daily. Disp: Rfl:benztropine (COGENTIN) 0.5 mg tablet Take 0.5 mg by mouth twice daily. Disp:Rfl:venlafaxine XR (EFFEXOR XR) 150 mg 24 hr capsule Take 150 mg by mouth oncedaily. Disp: Rfl:propranolol (INDERAL) 20 mg tablet Take 20 mg by mouth twice daily. Disp: Rfl:QUEtiapine (SEROQUEL) 100 mg tablet Take 200 mg by mouth every evening. Disp:Rfl:traZODone HCl 300 mg tablet Take 900 mg by mouth daily at bedtime. Disp: Rfl:omeprazole (PRILOSEC) 20 mg capsule Take 1 capsule by mouth once daily. Disp: 90capsule Rfl: 3Current hospital medications:LORazepam 2 mg (ATIVAN) 2 mg ORAL q 1 H PRNLORazepam 2 mg injection (ATIVAN) 2 mg INTRAVENOUS q 1 H PRNLORazepam 4 mg (ATIVAN) 4 mg ORAL q 1 H PRNLORazepam 4 mg injection (ATIVAN) 4 mg INTRAVENOUS q 1 H PRNprenatal vitamin with folic acid 1 mg 1 tablet 1 tablet ORAL DAILYfolic acid 1 mg tab(s) 1 mg ORAL DAILYthiamine 100 mg tab(s) (VITAMIN B1) 100 mg ORAL TIDguaiFENesin-dextromethorpha n 100-10 mg/5 mL 10 mL oral liquid (ROBITUSSIN DM) 10mL ORAL q 4 H PRNiv contrast (radiology procedure) INTRAVENOUS DIRECTED PRNenteric contrast (radiology procedure) ORAL DIRECTED PRNbenztropine 0.5 mg tab(s) (COGENTIN) 0.5 mg ORAL BIDpropranolol 20 mg tab(s) (INDERAL) 20 mg ORAL BIDtraZODone 300 mg tab(s) (DESYREL) 300 mg ORAL AT BEDTIMEvenlafaxine ER 150 mg cap(s) (EFFEXOR XR) 150 mg ORAL DAILYpiperacillin-tazobactam 3.375 g in dextrose (iso-osmotic) 50 mL (ZOSYN) 3.375 gINTRAVENOUS q 6 H0.9% NaCl 3-5 mL 3-5 mL INTRAVENOUS q [address] 40 mg tab(s) (PROTONIX) 40 mg ORAL DAILY (6 AM)apixaban 5 mg tab(s) (ELIQUIS) 5 mg ORAL BIDlithium carbonate 1,200 mg cap(s) (ESKALITH) 1,200 mg ORAL DAILYQUEtiapine 200 mg tab(s) (SEROquel) 200 mg ORAL AT BEDTIMEvancomycin 1.5 g in D5W 250 mL (VANCOCIN) 0.015 g/kg/dose INTRAVENOUS q 12 HRAllergies As of Date: 12/23/2017(No Known Allergies)Fully Assessed 12/23/2017COMPLETE REVIEW OF SYSTEMS:10 point ROS complete, negative unless otherwise statedC/o chills/ night sweats, coughIntermittent dyspnea/ pleuritic chest painObjectivePHYSICAL EXAM:Temp (24hrs), Av.1 ?C (98.7 ?F), Min:36.8 ?C (98.2 ?F), Max:37.2 ?C (99 ?F)GEN: Alert, pleasant, NADHEENT: PERRL, moist oral mucosa, neck supplePULM: coarse rhonchi RU/LLCV: RRRGI: soft, non distended, non tender, BSx4GU: no wasserman, no CVATEXT: no edema, no joint inflammationSKIN: no rashNEURO: no focal deficits, Alert and oriented [id number]: PIV sites cleanBody mass index is 31.44 kg/m?.Patient Vitals for the past 24 hrs: BP Temp Temp src Pulse Resp SpO2 Height Kehpen78/04/18 0800 121/68 36.8 ?C (98.2 ?F) Oral 91 20 95 % - -12/24/17 0600 - - - - - - - 99.4 kg (219 lb 2.2 oz)12/24/17 0446 115/53 37 ?C (98.6 ?F) Oral 89 20 93 % - -12/24/17 0021 149/75 37.1 ?C (98.8 ?F) Oral 94 18 96 % - -12/23/17 2243 150/86 37.2 ?C (99 ?F) Oral 96 18 99 % - -12/23/17 2200 - - - - - - 177.8 cm (5' 10 ) 100.3 kg (221 lb 1.9 oz)DATA:Diagnostic tests reviewed for today's visit:Recent Labs 12/24/179957WBC 20.94*HB 11.1*PLT 394*NA 138K 3.4*CO2 26BUN 7CREAT 0.88AST 29ALT 46TBILI 0.4ALKPHOS 170*LACT 0.7MICROBIOLOGY:12/07 Lung Abscess Cx; GBS/ GCS, Prevotella Mqgsao92/04 Blood Cx; in processIMAGES:ReviewedPaper Copy of CT from OSH on ChartImpression/Recommendation s1. Sepsis 06/24 # 22. Right Upper Lobe Loculated Lung Abscess -- s/p IR drain 12/07 at OSH + GBS/ GCS/ Prevotella Oralis -- Failure to improved on PO Antibiotics -- likely aspiration related v/s complicated CAP3. Leukocytosis4. Fever/ Chills5. Dyspnea/ Chest Pain6. Ac on Chronic AnemiaPlan;Continue Vancomycin/ Zosyn for nowCheck MRSA NaresAwait IR Abscess Drain- culture dataFollow CBCSIGNATURE: Mayuri Kruger APRN.[employer] K[employer]ITTING MACHINE OPERATOR PATIENT NAME: Soraya Avilez: December 24, 2017 : 11:13 AM PAGER: [phone]++++++++++++++++++++++ [phone]+++++++++++++++++++++++++++++ +++++++++++++++Above reflects my direct input except for changes as amended. Reviewed dataindependently.Tenzin Cantrell MD12/24/20176:37 PMPrevious Allen Gorman MD 12/24/2017 4:34 PM Cosign NeededCONSULT: THORACIC SURGERY SERVICEVascular AND Thoracic Surgery Service Pager:For questions or concerns Mon-Fri 6a-5p please page [phone].After 5pm and on Weekends and Holidays, please page [phone] if in ICU or [phone] if onRNF.SERVICE DATE: 12/24/2017SERVICE TIME: 1:46 PMREASON FOR CONSULT: lung abscessREQUESTING PHYSICIAN: Dr LombardoUNC HEALTH JOHNSTONRY CARE PHYSICIAN: OSMANY FrenchubBaptist Health Homestead HospitalDelores Bowser is a 52 year old male with hx [facility] with incidental finding of bilateral PEs for which he wastreated with a hep drip then transitioned to Eliquis. He underwent IR drainplacement, which was removed and he was discharged home on Augmentin on 12/12. Hefelt well after discharge but in the last couple days complains of increasingSOB, cough and chest pain with associated chills, subjective fever, nightsweats. He's had a 25 lb unintentional weight loss in the last few weeks. He'sunsure the etiology of his abscess but reports he may have aspirated when takinghis psych meds in the days since his admission at [facility].PAST MEDICAL HISTORYDiagnosis Date- Bipolar 1 disorder (HCC)- GERD (gastroesophageal reflux disease)- Left elbow pain- Shoulder pain, rightPAST SURGICAL HISTORYProcedure Laterality Date- PAST SURGICAL HISTORY OF Right 1998 right wrist debridement (s/p infection of pins from repair)FAMILY HISTORYProblem Relation Age of Onset- Adopted: Yes- congestive heart failure [OTHER] Maternal Grandmother- Cancer FatherSocial HistorySubstance Use Topics- Smoking status: Never Smoker- Smokeless tobacco: Never Used- Alcohol use Yes Comment: rarePrescriptions Prior to Admission:apixaban (ELIQUIS) 5 mg tab(s) Take 5 mg by mouth twice daily. Disp: Rfl:lithium carbonate 600 mg capsule Take 1,200 mg by mouth once daily. Disp: Rfl:benztropine (COGENTIN) 0.5 mg tablet Take 0.5 mg by mouth twice daily. Disp:Rfl:venlafaxine XR (EFFEXOR XR) 150 mg 24 hr capsule Take 150 mg by mouth oncedaily. Disp: Rfl:propranolol (INDERAL) 20 mg tablet Take 20 mg by mouth twice daily. Disp: Rfl:QUEtiapine (SEROQUEL) 100 mg tablet Take 200 mg by mouth every evening. Disp:Rfl:traZODone HCl 300 mg tablet Take 900 mg by mouth daily at bedtime. Disp: Rfl:omeprazole (PRILOSEC) 20 mg capsule Take 1 capsule by mouth once daily. Disp: 90capsule Rfl: 3Current hospital medications:LORazepam 2 mg (ATIVAN) 2 mg ORAL q 1 H PRNLORazepam 2 mg injection (ATIVAN) 2 mg INTRAVENOUS q 1 H PRNLORazepam 4 mg (ATIVAN) 4 mg ORAL q 1 H PRNLORazepam 4 mg injection (ATIVAN) 4 mg INTRAVENOUS q 1 H PRNprenatal vitamin with folic acid 1 mg 1 tablet 1 tablet ORAL DAILYfolic acid 1 mg tab(s) 1 mg ORAL DAILYthiamine 100 mg tab(s) (VITAMIN B1) 100 mg ORAL TIDguaiFENesin-dextromethorpha n 100-10 mg/5 mL 10 mL oral liquid (ROBITUSSIN DM) 10mL ORAL q 4 H PRNiv contrast (radiology procedure) INTRAVENOUS DIRECTED PRNenteric contrast (radiology procedure) ORAL DIRECTED PRNbenztropine 0.5 mg tab(s) (COGENTIN) 0.5 mg ORAL BIDpropranolol 20 mg tab(s) (INDERAL) 20 mg ORAL BIDtraZODone 300 mg tab(s) (DESYREL) 300 mg ORAL AT BEDTIMEvenlafaxine ER 150 mg cap(s) (EFFEXOR XR) 150 mg ORAL DAILYpiperacillin-tazobactam 3.375 g in dextrose (iso-osmotic) 50 mL (ZOSYN) 3.375 gINTRAVENOUS q 6 H0.9% NaCl 3-5 mL 3-5 mL INTRAVENOUS q [address] 40 mg tab(s) (PROTONIX) 40 mg ORAL DAILY (6 AM)apixaban 5 mg tab(s) (ELIQUIS) 5 mg ORAL BIDlithium carbonate 1,200 mg cap(s) (ESKALITH) 1,200 mg ORAL DAILYQUEtiapine 200 mg tab(s) (SEROquel) 200 mg ORAL AT BEDTIMEvancomycin 1.5 g in D5W 250 mL (VANCOCIN) 0.015 g/kg/dose INTRAVENOUS q 12 HRAllergies As of Date: 12/23/2017(No Known Allergies)Fully Assessed 12/23/2017COMPLETE REVIEW OF SYSTEMS:See HPIObjectivePHYSICAL EXAM:Physical Exam Performed:GENERAL: Alert, no distress, cooperativeSKIN: Skin color, texture, turgor normal. No rashes or lesions.LUNGS: slightly TTP R lateral ribs, no resp distressBP 121/68 Pulse 91 Temp (Src) 98.2 (Oral) Resp 20 Ht 5' 10 (1.78m) Wt219 lb 2.2 oz (99.4kg) SpO2 95% BMI 31.44 kg/(m2).DATA:Diagnostic tests reviewed for today's visit:Most recent labs and imaging results.CT ABD/PEL W IVCON (Results Pending)IR ABSCESS DRAIN PLACEMENT (AK) (Results Pending)Impression/Recommendat ions52 year old male with recurrent R lung abscess- chest CT 12/23 - 9.0 x 6.4 x 9.6 cm RUL lung abscess, RUL atelectasis/fibrosis,mediastin al adenopathy- ID recs - cont vanc/zosyn- MRSA pending- recommend IR drain and culture- management per primary- pulm recs- hx PEs, EliquisDiscussed above plan with attending, Dr Martins AND Thoracic Surgery Service Pager:For questions or concerns Mon-Fri 6a-5p please page [phone].After 5pm and on Weekends and Holidays, please page [phone] if in ICU or [phone] if onRNF.SIGNATURE: Gosia Gorman MD PATIENT NAME: Soraya BowserDATE: December 24, 2017 : 1:46 PM PAGER: [phone] Demetrius Gamboa MD, MD 12/25/2017 11:33 AM Cosign NeededThoracic Surgery Progress NoteSERVICE DATE: 12/25/2017SubjectiveSUBJECTIVE:N AEON. Pt has dry cough, no other complaints.Denies N/V/CP/SOBDiet: DIET REGULARObjectiveOBJECTIVE:Tuyet ls:Temp (24hrs), Av.2 ?C (99 ?F), Min:36.7 ?C (98.1 ?F), Max:37.8 ?C (100 ?F)BP 125/74 Pulse 92 Temp 36.7 ?C (98.1 ?F) (Oral) Resp 20 Ht 177.8 cm(5' 10 ) Wt 98.2 kg (216 lb 8 oz) SpO2 94% BMI 31.06 kg/m?O2 Therapy: Room AirIANDO:Date 12/24/17699 - 12/25/17 0659 12/25/17699 - 12/26/17 0659Shift 1129-2338 4147-5959 0523-0427 24 Hour Total 6874-6643 4014-9328 2300-261835 Hour TotalINTAKE PO 898 489 144 1654 390 390 PO 898 803 680 3718 390 390 IV 50 550 350 950 Vancomycin IV 500 250 750 Zosyn IV 50 50 100 200 Shift Total 948 9146 100 2914 390 390OUTPUT Urine 500 3 503 Void (ml) 500 500 Urine Not Saved 3 3 # of BMs Number of BMs 1 x 1 x Shift Total 500 3 503Weight (kg) 99.4 99.4 98.2 98.2 98.2 98.2 98.2 98.2MEDICATIONSCurrent Facility-Administered Medications:LORazepam 2 mg (ATIVAN) 2 mg ORAL q 1 H PRNOrLORazepam 2 mg injection (ATIVAN) 2 mg INTRAVENOUS q 1 H PRNLORazepam 4 mg (ATIVAN) 4 mg ORAL q 1 H PRNOrLORazepam 4 mg injection (ATIVAN) 4 mg INTRAVENOUS q 1 H PRNprenatal vitamin with folic acid 1 mg 1 tablet 1 tablet ORAL DAILYfolic acid 1 mg tab(s) 1 mg ORAL DAILYthiamine 100 mg tab(s) (VITAMIN B1) 100 mg ORAL TIDiv contrast (radiology procedure) INTRAVENOUS DIRECTED PRNcodeine-guaiFENesin 5 mL oral liquid (ROBITUSSIN AC) 5 mL ORAL q 6 H PRNbenztropine 0.5 mg tab(s) (COGENTIN) 0.5 mg ORAL BIDpropranolol 20 mg tab(s) (INDERAL) 20 mg ORAL BIDtraZODone 300 mg tab(s) (DESYREL) 300 mg ORAL AT BEDTIMEvenlafaxine ER 150 mg cap(s) (EFFEXOR XR) 150 mg ORAL DAILYpiperacillin-tazobactam 3.375 g in dextrose (iso-osmotic) 50 mL (ZOSYN) 3.375 gINTRAVENOUS q 6 H0.9% NaCl 3-5 mL 3-5 mL INTRAVENOUS q [address] 40 mg tab(s) (PROTONIX) 40 mg ORAL DAILY (6 AM)apixaban 5 mg tab(s) (ELIQUIS) 5 mg ORAL BIDlithium carbonate 1,200 mg cap(s) (ESKALITH) 1,200 mg ORAL DAILYQUEtiapine 200 mg tab(s) (SEROquel) 200 mg ORAL AT BEDTIMEvancomycin 1.5 g in D5W 250 mL (VANCOCIN) 0.015 g/kg/dose INTRAVENOUS q 12 HRLabs:Recent Labs 12/24/179957NA 138 138K 3.6 3.4*CHLOR 107 103CO2 24 26BUN 4* 7CREAT 0.82 0.88GLUC 90 98ANION -- 12CA 8.7 8.5P 2.5 --ALB 1.9* 2.3*AST -- 29ALT -- 46ALKPHOS -- 170*TBILI -- 0.4WBC 20.78* 20.94*HB 11.1* 11.1*HCT 34.2* 33.0*PLT 376* 394*LACT -- 0.7Exam:GENERAL: No distress, AlertNEURO: AANDOx3, no focal deficitsHEENT: normocephalic, atraumaticLUNGS: Unlabored breathing O2 Therapy: Room Air, lungs CTA, no appreciabledecreased air movement in any lobe.CARDIAC: Regular rate and rhythm as aboveABDOMEN: Soft, non-tender, non-distendedEXTREMITIES: LOPEZ, No deformities, No edemaSKIN: Skin color, texture, turgor normal, No rashes or lesionsASSESSMENT AND PLAN:Active Hospital Problems Diagnosis Date Noted- Pulmonary embolism, bilateral (HCC) 12/24/2017 Priority: A- Lung abscess ([facility]) 12/23/2017 Priority: A- Diarrhea 12/22/2016 Priority: L Overview Note: Added automatically from request for surgery [id number]- Bipolar 1 disorder ([facility]) 12/24/2017- Elevated blood pressure reading 12/24/2017- Unintentional weight loss 12/24/2017- Mediastinal lymphadenopathy 12/24/2017- Sinus tachycardia 12/24/2017- Thrombocytosis ([facility]) 12/24/2017- Leukocytosis 12/24/2017- Macrocytosis without anemia 12/24/2017- Severe protein-calorie malnutrition ([facility]) 12/24/2017- Obesity, Class II, BMI 35-39.9 12/23/2017- Alcohol abuse 03/17/2015- GERD (gastroesophageal reflux disease) 02/06/2015- Anxiety [birth year]/13/20189 year old male with recurrent R lung abscess?- chest CT 12/23 - 9.0 x 6.4 x 9.6 cm RUL lung abscess, RUL atelectasis/fibrosis,mediastin al adenopathy- ID recs - cont vanc/zosyn- MRSA pending (12/25)- recommend IR drain and culture, will defer to primary team for order- management per primary- pulm recs- hx Pes on Eliquis- Will request imaging for first incident of abscess.Assessment and plan discussed with attending: Dr. NicoleATURE: Wilfred Gamboa MD PATIENT NAME: Soraya BowserDATE: December 25, 2017 : 11:30 AM Pager: [phone] Notes (INTM AG ACC):Jeremie Ramírez MD 12/23/2017 7:25 PM [facility] transfer line:52M pm bipolar, TBI, presented 1 month ago w chest pain (CT chest: small PEwith RUL mass) admitted for biopsy, IR drained pus instead, they placed apigtail drainage then, culture grew strep agalactiae (R-clinda), strep group C,previotella, anaerobic cocci. Prior to discharge CXR showed resolution ofabscess. He was discharged on 12/07/17 w augmentin. Patient reported adherent totherapy.Today, patient has increased cough and pain. Repeat CXR and CT showed RULabscess 9cm w air fluid level. Vitals: 99.2F HR 102 115/75 14 99% RAWBC 24.8. Lactate 1. He was given a dose of zosyn. Physician talked topulmonologist there and stated it would probably be better for patient to betransferred to tertiary care.Transfer accepted. Advised physician to give a dose of vancomycin prior totransfer. Will await resident to assess patient for further plan.Jeremie Ramírez MD [facility] HOSPon 11-17-2017 HOSP Psych Office Visit (SUMBES) SORAYA RAMEY ([id number]) 1965 MDate Time Provider Department11/17/17 2:00 PM TERRENCE BARRIENTOS During your visit today, we recorded the following information about you:Terrence Barrientos, PhD 11/17/2017 4:32 PM SignedPatient: Soraya Bray: 1965Referred By: RICKIE Lopezates of Service: 11/01/2017 AND 11/17/2017Reason for Referral: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 His deficits related to attention and visualperceptual functions, while possibly indicative of changes due totraumatic brain injury, are not unusual in individuals with a diagnosis ofBipolar disorder with no neurological history. While he demonstratedsignificantly slowed processing speed this could also be reflective of hiscurrent medications. Review of neurology treatment indicated no evidenceof seizures with mild diffuse encephalopathy and some mild volume loss onMRI. It is noted that his medical record indicated he was also to followthrough with a lumbar puncture but multiple attempts to contact Soraya tocomplete this test had been unsuccessful. At this time the underlyingetiology of his cognitive symptoms is not entirely clear but it is likelythat they are multifactorial and a reflection of his psychiatric disorder,medications and history of multiple concussive injuries.Recommendations:1. Continued psychiatric treatment to manage his Bipolar disorder.Evaluation of medications is also encouraged. During the follow up visitSoraya?s advocate shared that due to the sedating nature of his eveningmedications Soraya would not likely awaken and respond in an emergencysituation during the night, such as a fire alarm. Continued counseling isalso recommended. Therapy should also focus on development of aproductive activity pattern to increase cognitive stimulation andsocialization. Soraya has indicated an interest in refurbishingfurniture. Exploring opportunities in his community to engage in thistask is suggested.2. Abstinence of all alcohol use. At the present time Soraya reported heconsumes ? of a fifth of vodka each week. Given his prior history ofsubstance use and his current medications continued consumption of alcoholis not recommended.3. Follow up with neurology to complete recommended testing and forassistance with diagnostic decision making. Soraya noted some geographicconstraints with regard to returning to his former neurologist andrequested facilitation to a provider in the [place].Terrence Barrientos, Ph.D.NeuropsychologistOhio License #[id number]: K[facility] Ibar[facility] data summary sheetWechsler Adult Intelligence Scale-IVIndex IQ/Index HI InterpretationVerbal Comprehension 95 37 AveragePerceptual Reasoning 79 8 BorderlineWorking Memory 89 23 Low AverageProcessing Speed 68 2 Extremely LowFull Scale Score 79 8 BorderlineGeneral Ability Index 84 14 Low AverageSubtest Scores ss HI Interpretation S. or W.Verbal ComprehensionSimilarities 5 5 BorderlineVocabulary 10 50 Average SInformation 12 75 High average SPerceptual ReasoningBlock Design 8 25 Low averageMatrix Reasoning 5 5 BorderlineVisual Puzzles 6 9 BorderlineWorking MemoryDigit Span 7 16 Low averageArithmetic 9 37 AverageProcessing SpeedSymbol Search 5 5 BorderlineCoding 3 1 Extremely low WCPT 3Variable Type Measure T-score guidelineDetectability d? 63 ElevatedError type Omissions 90 Very Elevated Commissions 45 Average Perseverations 76 Very ElevatedReaction Time Statistics HRT 79 Atypically slow HRT SD 68 Elevated Variability 69 Elevated HRT Block Change 64 Elevated HRT CORNELL Change 31 LowBNTTrial Scaled Score T score classificationBoston Naming Test 8 32 Mild to moderate impairmentCVLT-IIVariable Standardized ScoreTrial 1 Correct -1Trial 5 Correct -1Trials 1-5 Correct (t score) 47Total Learning Yancey Trials 1-5 -0.5Semantic Clustering (Chance Adjusted) -1.5% Recall from Primacy 1% Recall from Middle -1.5% Recall from Recency 0.5Trial B Correct -1.5List B vs List A -0.5Short-Delay Free Recall Correct 0Short-Delay Cued Recall Correct 0Long-Delay Free Recall Correct 0Long-Delay Cued Recall Correct 0Long-Delay Cued Recall Discriminability 0.5Long-Delay Free Recall vs. Trial 5 1Total Free-Recall Intrusions -1Total Cued-Recall Intrusions -1Total Intrusions (All Recall Trials, All Types) -1Total Repetitions (All Recall Trials) -1Long-Delay Yes/No Recognition Hits -0.5Long-Delay Yes/No Recognition False-Positives -1Long-Delay Yes/No Recognition Total Response Bias 1.5Long-Delay Yes/No Total Recognition Discriminability 0.5Long-Delay Yes/No Source Recognition Discriminability 0Long-Delay Yes/No Novel Recognition Discriminability 0Total Recognition Discriminability vs. Long-Delay Free Recall 0.5RCFT T score Percentile rank ClassificationCopy Trial ?1Time to Copy >16Immediate Recall 27 1 Moderately impairedDelayed Recall 28 1 Moderately impairedRecognition Total Correct 41 18 Below averageWMS-IVSubtest Scores ss HI Interpretation S. or W.Logical Memory I 7 16 Low averageLogical Memory II 8 25 Low averageLogical Memory II Recognition Base Rate: 51-75%Auditory Memory Index = 91 Percentile Rank = 27WCSTmeasure Score %ileCategories completed 2 6-10Trials to complete 1st category 27 2-5Failure to maintain set 2 >16Learning to learn -10.01 2-5DKEFS [place] Making Test Scaled Score Visual Scanning 1 Number Sequencing 3 Letter Sequencing 6 Number ? Letter Sequencing 7 Motor Speed 4Verbal Fluency Test Letter Fluency 3 Category Fluency 7 Category Switching: Total Correct 6 Category Switching: Total Switching Accuracy 7Color ? Word Interference Test Color Naming 3 Word Reading 3 Inhibition 6 Inhibition/Switching 10Grooved PegboardUnable to complete due to tremorsBDI-2 = 23 (moderate)PRETTY = 19 (moderate)TOMMTrial 1 49/50Trial 2 50/50. Normal [facility] NURSING PROGon 12-27-2016 NURSING PROG HNO ID: [id number] thor: Paloma (Rn) VALARIE Sanchezervice: (none)Author Type: Registered NurseType: Nursing Progress NoteFiled: 12/27/2016 2:26 PMNote Text:No PACC needed per Carmen Rn. HANDP dated 11/30/16 by Arlene LOPEZ in chart.Called and left message for patient to return call to PACC - will needPACC pre-op phone instructions. Parminder Falcon 2016 2:17 PMReceived call back from patient. PACC pre-op phone instructions providedto patient. Patient verbalized an understanding. Chart check complete.Paloma Sanchez RNPATIENT PREOPERATIVE INSTRUCTIONSDr. Casiano has scheduled you for your procedure at this surgery center:[facility]: [phone] -- [address] [id number].Please read below carefully for your personalized instructions.Blood Thinning Medications:- Stop NSAIDS (Ibuprofen, Advil, Aleve, Motrin, Celebrex, Mobic, etc.)(today) days before surgery, as directed by your surgeon.- Stop Aspirin (today) days before surgery, as directed by your surgeon.- Stop Vitamin E, ALL multi-vitamins, herbals and dietary supplements(today days before surgery.- You may take Tylenol (Acetaminophen) or any of your pain medicationsthat do not contain aspirin or NSAIDS as needed.Dietary Restrictions:- You may have 12 ounces of clear liquids (water, clear juices such asapple juice or gatorade, carbonated beverages, clear tea, black coffee,jello) until 2 hours before scheduled arrival at facility.- Do not drink any alcohol after midnight the night before your surgery.- Follow Dr. Casiano's bowel prep instructionsPain Medications:Tylenol ok if needed.Medications:Approved medications to take the morning of surgery with a sip of water:Prilosec, Paxil.If you start any new medications after today's visit, please contact thesurgery center above.Important Reminders:- Candy, mints, gum and tobacco products are NOT permitted the morning ofsurgery.- Hearing aids, dentures and glasses may be worn the morning of surgery.- NO jewelry, body piercings, makeup, nail swedish, hairpins or contactsare to be worn the day of surgery.shower/bathe with antibacterial soap morning of surgeryIf you develop symptoms such as a fever, cold, or flu, or have otherchanges to your health within TWO DAYS of scheduled surgery or the morningof surgery, please contact the surgery center above.Personal Belongings:- Leave ALL valuables and money at home or with family members.For Outpatient Procedures: - YOU MUST HAVE A RESPONSIBLE TEACHER NURS[employer] SCHOOL TAKE YOU HOME. A SALES ENABLEMENT SPECIALIST OR CABDRIVER CANNOT BE MADE A RESPONSIBLE [employer]ER [employer]CHO[employer].- We recommend that a responsible person stays with you overnight to takecare of you.- You cannot stay in a hotel alone after outpatient surgery. You will notbe permitted to have your surgery, if you do not have someone to take careof you. Arrival Time for Surgery:- The Surgery Center or hospital where you are having surgery will callthe afternoon before surgery (or Tuesday for Tuesday surgery) with ascheduled arrival time.- If you have not heard by 4 pm, please contact the surgery center above.Please be aware that emergency situations arise, which may delay or changeyour surgical time. If this happens, we will notify you as soon aspossible and regret any inconvenience.Paloma Sanchez RN [facility] Office Visit: UC: cough, run ny nose congestionon 10-25-2016 Fall risk assessment No [facility] Work Phone: Tobacco smoking status NHIS Never smoker [facility] Work Phone: Vital Signs Date Time Vital Sign Value Performing Clinician Facility 03-24-2018 09:22-0400 BMI (Body Mass Index) 32.57 kg/m2 Maile Ortez [facility] Work Phone: 03-24-2018 09:22-0400 BP Diastolic 90 mm[Hg] Maile Ortez [facility] Work Phone: Comment on above: Patient Position: Sitting; Cuff Location : Left Arm; Cuff Size: Large 03-24-2018 09:22-0400 BP Systolic 142 mm[Hg] Maile Ortez [facility] Work Phone: Comment on above: Patient Position: Sitting; Cuff Location : Left Arm; Cuff Size: Large 03-24-2018 09:220400 BSA (Body Surface Area) 2.2 m2 Maile Ortez [facility] Work Phone: 03-24-2018 09:220400 Height 177.8 cm Maile Ortez [facility] Work Phone: 03-24-2018 09:22-0400 Pulse (Heart Rate) 90 /min Maile Ortez [facility] Work Phone: Comment on above: Pattern: Regular 03-24-2018 09:22-0400 Pulse Oximetry 94 % Maile Ortez [facility] Work Phone: Comment on above: Room air 03-24-2018 09:220400 Respiratory Rate 18 /min Maile Ortez [facility] Work Phone: Comment on above: Pattern: Unlabored 03-24-2018 09:22-0400 Weight 102.97 kg Maile Ortez [facility] Work Phone: 10-25-2016 09:13-0400 BMI (Body Mass Index) 35.81 kg/m2 Andreia Rachelnina LINDO [facility] Work Phone: 10-25-2016 09:13-0400 Body Temperature 98.3 [degF] Andreia Ankush LINDO [facility] Work Phone: 10-25-2016 09:13-0400 Body weight 113.22 kg Andreia Rachelnina LINDO [facility] Work Phone: 10-25-2016 09:13-0400 BP Diastolic 84 mm[Hg] Andreia Ankush LINDO [facility] Work Phone: 10-25-2016 09:13-0400 BP Systolic 138 mm[Hg] Andreia Ankush LINDO [facility] Work Phone: 10-25-2016 09:13-0400 Height 177.8 cm Andreia Lechuga LPN [facility] Work Phone: 10-25-2016 09:13-0400 Pulse (Heart Rate) 95 /min Andreia Lechuga LPN [facility] Work Phone: 10-25-2016 09:13-0400 Pulse Oximetry 98 % Andreia Lechuga LPN [facility] Work Phone: 10-25-2016 09:13-0400 Respiratory Rate 12 /min Andreia Lechuga LPN [facility] Work Phone: Encounters Encounter Date Encounter Type Care Provider Facility Start: 02-22-2024 End: 02-22-2024 ambulatory [facility] Facility:[facility] Start: 02-10-2024 End: 02-10-2024 ambulatory [facility] Facility:[facility] Start: 01-26-2024 End: 01-26-2024 ambulatory [facility] Facility:[facility] Start: 01-02-2024 End: 01-02-2024 ambulatory [facility] Facility:[facility] Start: 12-26-2023 End: 12-26-2023 ambulatory [facility] Facility:[facility] Start: 12-16-2023 End: 12-16-2023 ambulatory [facility] Facility:[facility] Start: 11-02-2023 End: 11-02-2023 ambulatory [facility] Facility:[facility] Start: 10-19-2023 End: 10-19-2023 ambulatory [facility] Facility:[facility] Start: 09-07-2023 End: 09-07-2023 ambulatory [facility] Facility:[facility] Start: 07-29-2023 End: 07-29-2023 ambulatory [facility] Facility:[facility] Start: 07-22-2023 End: 07-22-2023 ambulatory [facility] Facility:[facility] Start: 06-23-2023 End: 06-23-2023 ambulatory [facility] Facility:[facility] Start: 06-13-2023 End: 06-13-2023 ambulatory [facility] Facility:[facility] Start: 06-09-2023 End: 06-09-2023 ambulatory [facility] Facility:[facility] Start: 05-03-2023 End: 05-03-2023 ambulatory [facility] Facility:[facility] Start: 03-24-2018 End: 03-24-2018 Office outpatient new 45 minutes Maile Ortez [facility] Start: 01-25-2018 Patient encounter TENZIN CANTRELL Arnol villafanay:[facility] Start: 12-24-2017 End: 01-03-2018 Evaluation and management of inpatient JEREMIE RAMÍREZ [facility] Start: 11-17-2017 End: [facility]-17-2017 [facility]: 11-01-2017 End: 11-01-2017 Patient encounter TERRENCE [facility] Start: 10-25-2017 Patient encounter TERRENCE BARRIENTOSJULIO Farrell ity:[facility] Start: 08-22-2017 End: 08-22-2017 Evaluation and management of inpatient Franklin Schafer Facility:[facility] Start: 08-22-2017 Patient encounter FRANKLIN SCHAFER [facility] Start: 04-04-2017 End: 04-04-2017 Ambulatory [facility] Procedures Date Procedure Procedure Detail Performing Clinician Start: 10-25-2016 End: 10-25-2016 Documentation of current medications Andreia Lechuga LPN Ophthalmic examinati on and evaluation Melissa Chaudhry Comment on above: 2016 Pig Tail chest tube Melissa epperson Plan of Treatment Date Care Activity Detail Author Start: 03-24-2018 Drug screen quantitative lithium DRUG ASSAY-LITHIUM (76506) [facility] Work Phone: Start: 03-24-2018 Urnls dip stick/tablet reagent auto microscopy URINALYSIS, W/ MICRO ([id number]) [facility] Work Phone: Start: 03-24-2018 Urine albumin quantitative MICROALBUMIN: CREATININE RATIO ([id number]) AND ([id number]) [facility] Work Phone: Start: 03-24-2018 Comprehensive metabolic panel METABOLIC PANEL, COMPREHENSIVE ([id number]) [facility] Work Phone: Start: 03-24-2018 Lipid panel LIPID PANEL ([id number]) [facility] Work Phone: Start: 03-24-2018 Blood count complete auto&auto difrntl wbc CBC W/AUTO DIFF WBC ([id number]) [facility] Work Phone: Start: 03-24-2018 Protein mass conc PROLACTIN (31314) [facility] Work Phone: Start: 03-24-2018 Assay of testosterone free TESTOSTERONE FREE ([id number]) [facility] Work Phone: Start: 03-24-2018 Thyrotropin Qn TSH ([id number]) [facility] Work Phone: Start: 10-25-2016 End: 10-25-2016 Appointment Appointment [facility] Work Phone: Patient Education ACUTE%20COUGH [facility] Work Phone: [facility] Work Phone: Immunizations Immunization Date Immunization Notes Care Provider Tristen mejia 03-16-2018 influenza, seasonal, injectable Maile Ortez [facility] Work Phone: 02-20-2017 hepatitis B vaccine, adult dosage Maile Ortez [facility] Work Phone: Payers Date Payer Category Payer Medicaid [id number] 2023 Unknown [id number] 2019 Medicaid [id number] Medicaid [id number] Unknown [facility]/Medicaid Social History Date Type Detail Facility Alcohol Use [facility] Work Phone: Comment on above: 2-3 x week Exercise History: Exercises regu larly. Light. [facility] Work Phone: Clinical Notes 05-03-2023 to 02-22-2024 Note Date & Type Note Facility 02-22-2024 Note HNO ID: [id number] Author: MÓNICA WALTON APRN.[employer]ICOT KNITTING MACHINE OPERATOR Service: ? Author Type: Nurse Practitioner Type: Progress Notes Filed: 02/22/2024 11:52 Note Text: This is a 58 year old male who presents today with: Patient presents with: Acute Visit: Throwing up HISTORY OF PRESENT ILLNESS: Soraya Bowser is a 58 year old male. Patient presents with: Acute Visit: Throwing up Here in the office for ongoing vomiting. Was seen on 02/10/2024 for URI, at that time referred that coughing was causing him to vomit, triggering his gag reflex. Diagnosed with URI and given Rx for Tessalon Perles. Refers that cough resolved but still vomiting. Vomiting a couple times per week, usually in the morning when first getting up. Will have the dry heaves for about 5 minutes and then resolves. No post nasal drip. Does have history of GERD, taking Protonix BID. Denies any increased heartburn. Will have intermittent epigastric pain at times. Denies any worsening symptoms after meals. History of constipation, last BM 3 days ago. EGD completed In 2013 PAST MEDICAL HISTORY: PAST MEDICAL HISTORY Diagnosis Date SHARI (acute kidney injury) ([facility]) 12/27/2017 Alcohol abuse Anxiety Benign prostatic hyperplasia with urinary frequency 07/27/2023 Bipolar 1 disorder ([facility]) Cellulitis and abscess of unspecified site 10/28/2014 Chronic midline low back pain without sciatica Class 3 severe obesity with body mass index (BMI) of 40.0 to 44.9 in adult, unspecified obesity type, unspecified whether serious comorbidity present ([facility]) 09/2023 Contact dermatitis, unspecified contact dermatitis type, unspecified trigger 09/2023 ED (erectile dysfunction) of organic origin Essential hypertension 07/20/2018 GERD (gastroesophageal reflux disease) HTN (hypertension) Hyperlipidemia with target LDL less than 130 Hypotension, unspecified hypotension type Hypothyroidism due to medication Impingement syndrome of right shoulder 07/26/2013 Left elbow pain Leukocytosis 12/24/2017 Macrocytic anemia 12/24/2017 Platelets decreased ([facility]) Pulmonary emboli ([facility]) 12/2017 Pulmonary embolism, bilateral ([facility]) 12/24/2017 Severe protein-calorie malnutrition ([facility]) 12/24/2017 Shoulder pain, right Syncope, unspecified syncope type Thrombocytosis 12/24/2017 Unintentional weight loss 12/24/2017 PAST SURGICAL HISTORY Procedure Laterality Date COLONOSCOPY FLX DX W/COLLJ SPEC WHEN PFRMD N/A 08/18/2020 Kedar Tariq--[facility]--repeat 10 years PAST SURGICAL HISTORY OF Right 1998 right wrist debridement (s/p infection of pins from repair) PICC LINE INSERTION (PICC TEAM) ([place]) 12/27/2017 ALLERGIES Patient has no known allergies. MEDICATIONS Current Outpatient Medications Medication Sig Fenofibrate (LOFIBRA) 160 mg tablet Take 1 tablet by mouth once daily. levothyroxine (SYNTHROID) 75 mcg tablet Take 1 tablet by mouth once daily. Take on empty stomach. For Thyroid pantoprazole DR (PROTONIX) 40 mg tablet Take 40 mg by mouth two times a day. tamsulosin (FLOMAX) 0.4 mg Take 1 capsule by mouth at bedtime as needed. brexpiprazole (REXULTI) 3 mg tablet Take 1 tablet by mouth once daily. QUEtiapine (SEROQUEL) 100 mg tablet Take 1 tablet by mouth two times a day. vortioxetine (TRINTELLIX) 10 mg tablet Take 1 tablet by mouth once daily. propranolol (INDERAL) 20 mg tablet Take 1 tablet by mouth once daily. (Patient taking differently: Take 20 mg by mouth two times a day.) folic acid 1 mg tablet Take 1 tablet by mouth once daily. sildenafil (VIAGRA) 50 mg tablet Take 1 tablet 30-60 minutes prior to intercourse by mouth. divalproex DR (DEPAKOTE) 500 mg EC tablet Take 2 tablets by mouth once daily. traZODone HCl (DESYREL) 300 mg tablet Take 1 tablet by mouth daily at bedtime. melatonin 10 mg tab Take 1 tablet by mouth daily at bedtime. No current facility-administered medications for this visit. FAMILY HISTORY Adopted: Yes Problem Relation Age of Onset Cancer Father other (congestive heart failure) Maternal Grandmother No Known Problems Half-brother No Known Problems Half-brother Asthma Son No Known Problems Daughter Social History Tobacco Use Smoking status: Never Smokeless tobacco: Never Vaping Use Vaping status: Never Used Substance Use Topics Alcohol use: Yes Comment: Socially Drug use: No REVIEW OF SYSTEMS GENERAL: No weight loss, malaise or fevers/chills HEENT: Negative for frequent or significant headaches, No changes in hearing or vision. NECK: Negative for lumps, goiter, pain and significant neck swelling RESPIRATORY: Negative for cough, hemoptysis, wheezing, dyspnea or shortness of breath CARDIOVASCULAR: Negative for chest pain, leg swelling, orthopnea, or palpitations GI: + Nausea, epigastric pain : No history of dysuria, frequency or incontinence MUSCULOSKELETAL: Negative for joint pain or swelling. SKIN: Negative for lesions, rash, and itching ENDOCRINE: Negative for cold or heat into (more content not included)... [facility] 02-10-2024 Note HNO ID: [id number] Author: MÓNICA WALTON APRN.[employer]ICOT KNITTING MACHINE OPERATOR Service: ? Author Type: Nurse Practitioner Type: Progress Notes Filed: 02/10/2024 14:25 Note Text: This is a 58 year old male who presents today with: Patient presents with: Acute Visit: cough and vomiting HISTORY OF PRESENT ILLNESS: Soraya Bowser is a 58 year old male. Patient presents with: Acute Visit: cough and vomiting Here in the office for cough and vomiting. Symptoms started on Tuesday. Will cough very hard which triggers his gag reflex causing him to vomit. No vomiting since Tuesday. Cough is dry. On going fatigue. No sore throat, ear pain, fever, or chills. Had his labs completed recently, CBC showed RBC 4.10, MCV 102.2, MCH 35.6. Refers that he has had ongoing fatigue for some time. PAST MEDICAL HISTORY: PAST MEDICAL HISTORY Diagnosis Date SHARI (acute kidney injury) ([facility]) 12/27/2017 Alcohol abuse Anxiety Benign prostatic hyperplasia with urinary frequency 07/27/2023 Bipolar 1 disorder ([facility]) Cellulitis and abscess of unspecified site 10/28/2014 Chronic midline low back pain without sciatica Essential hypertension 07/20/2018 GERD (gastroesophageal reflux disease) Hypotension, unspecified hypotension type Hypothyroidism due to medication Impingement syndrome of right shoulder 07/26/2013 Left elbow pain Leukocytosis 12/24/2017 Macrocytic anemia 12/24/2017 Platelets decreased ([facility]) Pulmonary emboli ([facility]) 12/2017 Pulmonary embolism, bilateral ([facility]) 12/24/2017 Severe protein-calorie malnutrition ([facility]) 12/24/2017 Shoulder pain, right Syncope, unspecified syncope type Thrombocytosis 12/24/2017 Unintentional weight loss 12/24/2017 PAST SURGICAL HISTORY Procedure Laterality Date COLONOSCOPY FLX DX W/COLLJ SPEC WHEN PFRMD N/A 08/18/2020 Kedar Tariq--[facility]--repeat 10 years PAST SURGICAL HISTORY OF Right 1998 right wrist debridement (s/p infection of pins from repair) PICC LINE INSERTION [place]PICC TEAM) ([place]) 12/27/2017 ALLERGIES Patient has no known allergies. MEDICATIONS Current Outpatient Medications Medication Sig levothyroxine (SYNTHROID) 75 mcg tablet Take 1 tablet by mouth once daily. Take on empty stomach. For Thyroid pantoprazole DR (PROTONIX) 40 mg tablet Take 40 mg by mouth two times a day. tamsulosin (FLOMAX) 0.4 mg Take 1 capsule by mouth at bedtime as needed. brexpiprazole (REXULTI) 3 mg tablet Take 1 tablet by mouth once daily. QUEtiapine (SEROQUEL) 100 mg tablet Take 1 tablet by mouth two times a day. vortioxetine (TRINTELLIX) 10 mg tablet Take 1 tablet by mouth once daily. propranolol (INDERAL) 20 mg tablet Take 1 tablet by mouth once daily. (Patient taking differently: Take 20 mg by mouth two times a day.) folic acid 1 mg tablet Take 1 tablet by mouth once daily. sildenafil (VIAGRA) 50 mg tablet Take 1 tablet 30-60 minutes prior to intercourse by mouth. divalproex DR (DEPAKOTE) 500 mg EC tablet Take 2 tablets by mouth once daily. traZODone HCl (DESYREL) 300 mg tablet Take 1 tablet by mouth daily at bedtime. melatonin 10 mg tab Take 1 tablet by mouth daily at bedtime. No current facility-administered medications for this visit. FAMILY HISTORY Adopted: Yes Problem Relation Age of Onset Cancer Father other (congestive heart failure) Maternal Grandmother No Known Problems Half-brother No Known Problems Half-brother Asthma Son No Known Problems Daughter Social History Tobacco Use Smoking status: Never Smokeless tobacco: Never Vaping Use Vaping status: Never Used Substance Use Topics Alcohol use: Yes Comment: Socially Drug use: No REVIEW OF SYSTEMS GENERAL: +Fatigue HEENT: Negative for frequent or significant headaches, No changes in hearing or vision. NECK: Negative for lumps, goiter, pain and significant neck swelling RESPIRATORY: + Cough CARDIOVASCULAR: Negative for chest pain, leg swelling, orthopnea, or palpitations GI: + vomiting : No history of dysuria, frequency or incontinence MUSCULOSKELETAL: Negative for joint pain or swelling. SKIN: Negative for lesions, rash, and itching ENDOCRINE: Negative for cold or heat intolerance, polyuria, polydipsia and goiter NEURO: No history of headaches, syncope, paralysis, seizures or tremors MOOD: Negative for depression, anxiety, or suicidal ideation. EXAM: BP 137/82 Pulse 93 Temp 37.1 ?C (98.7 ?F) Resp 16 Wt 116.6 kg (257 lb 0.9 oz) SpO2 95% BMI 37.43 kg/m? PHYSICAL EXAM: General Appearance: Well appearing, alert, in no acute distress, well-hydrated, well nourished. Skin: Skin color, texture, turgor normal, no suspicious rashes or lesions. Head: Normocephalic, no masses, lesions, tenderness or abnormalities. Eyes: Anicteric sclera. Pupils are equally round and reactive to light. Extraocular movements are intact. Ears: External ears normal, bilateral cerumen impaction, unable to visualize TMs. Nose/Sinuses: Nares normal, septum midline, mucosa normal, no drainag (more content not included)... [facility] 01-02-2024 Note HNO ID: [id number] Author: ALIRIO ARMAS MD Service: ? Author Type: Physician Type: Progress Notes Filed: 01/02/2024 17:29 Note Text: Transitional Care Management TCM Eligibility Documentation The following information was gathered during patient outreach 12/29/2023 Date of Outreach: Outreach Attempt 1: Contact Made Date of Discharge 12/28/2023 Provider Documentation Soraya Bowser is a 58 year old male here today for a follow up from recent hospitalization. I have reviewed the patient's hospital course including discharge summary, discharge medications , and follow up needs with the patient and any family members present at today's visit. [facility] follow up. Pt here today for a 7 day TCM. Pt discharged from [facility] on 12/28/23. Syncope - Pt at this time still not taking Amlodipine 10 mg once daily and Lisinopril 40 mg once daily. Since being d/c home he's not had any more symptoms of feeling like he's going to pass out. Checking BP at home, noting it's been higher in the 130-140's/70-80's. Denies any chest pain, sob or dizziness. Is supposed to be on a 30 days heart monitor that was ordered by the Hospital. He's not yet received it at this time. Has not been referred to Cardiology at this time. Was changed from Prilosec to Protonix 40 mg bid. Pt was still having burning pain in his sternum despite taking Prilosec. Was referred to GI, . Friend has an appt with him on 01/12/24. SHARI - Advised to stay well hydrated from Hospital. Pt notes he's trying to. Drinking at least 4-5 16 oz bottles of water per day. No sutures placed due laceration on the back of his head. -Pt discharged from [facility] on 12/28/23. -Admitted for: syncope and shari Below copied from [employer] History of Present Illness Chief Complaint: Syncope Detail of Chief Complaint: 6 syncopal/near syncopal episodes over the last 2 weeks Informant: patient Onset/Context/Timing Onset: Yesterday Context: Sudden Onset Timing: Intermittent Quality: Patient gets lightheaded when he rises from sitting position and passes out Location: Home Current Severity: Presently patient is supine in examination bed and has no symptoms Maximum Severity: All 6 episodes occurred while patient was rising from a sitting position Worsened by: Nothing Relieved by: Nothing Associated Symptoms Associated Symptoms: complains of head pain and buttocks pain Narrative Narrative: Patient is a 58-year-old male. He saw his primary care doctor. His primary care doctor discontinued his amlodipine and lisinopril. Patient denies black or maroon-colored stool. Patient states 2 to 3 days ago he had dark-colored emesis. This was not followed or preceded by a syncopal episode. He is on no anticoagulant. He denies bruising easily. Denies blood in his urine. Denies bleeding of his gums. Lasix also was yesterday. All of the episodes occurred when he charlie from a sitting position to a standing position. There is no history of diabetes or autonomic dysfunction. Medical decision making narrative: All events occurred when patient had change in position from sitting sign. Will obtain orthostatic vitals. EKG was obtained. CBC was obtained assess HANDH and BMP was obtained to assess BUN to creatinine ratio. If this is elevated since he reported dark emesis even though he denies black or maroon stool a couple days ago will perform rectal and possibly have nurse insert NG to assess for GI bleed. Plan #syncope likely due to orthostatic hypotension dizziness is worse when he gets out of bed and tries to ambulate orthostatics were positive, with diastolic BP dropping > 10mmhg with patient getting up. continue gentle hydration with IVF 2D ehco showed EF of 60% with normal LV size and no regional wall motion abnormalities, with stage 1 diastolic dysfunction PT/OT on board. fall precautions will benefit from 30 day event monitor on outpatient basis #SHARI Creatinine was elevated at over 3 when he was admitted. He was hydrated with IV fluids and creatinine is down to 1.65. Continue gentle hydration and monitor. #Hyponatremia: Sodium was 129 on admission and is now up to 134 after hydration with fluids. Was likely due to volume depletion. Will continue hydration and monitor. #Hypothyroidism: on synthroid. # Hypertension: On propranolol #GERD: On omeprazole. Complains of retrosternal burning pain with swallowing. Will add on surfactant and increase omeprazole to 40 mg twice daily and monitor. 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 Hospital Course: Patient is a 58 y/o male with a PMH as outlined who was admitted via the ED with a complaint of recurrent syncope. He said the syncope was usually when he got up from a seated position. HE had six syncopal episodes over the last few weeks prior to admission. Orthostatics were positive on admission. CBC was unremarkable, and BNP was significant for sodium of 129, potass (more content not included)... [facility] 12-29-2023 Note HNO ID: [id number] Author: NYA WILLIS MA Service: ? Author Type: Powerhouse Mechanic Type: Progress Notes Filed: 12/29/2023 16:28 Note Text: TRANSITION CARE MANAGEMENT (TCM) INITIAL CONTACT Powerhouse Mechanic Outreach Provider Action/FYI: 7 day tcn Felling a little better, still lightheaded and off balance. No further syncope episodes. He is changing positions slowly. He is awaiting 30 day heart Holter to arrive via mail. Had echo done while admitted but has not heard results of that. Not scheduled with Cardio. He was prescribed protonix 40 mg BID and advised to stop omeprazole and ibuprofen. Initial contact with patient post discharge, spoke to patient 12/29/23. Patient identified by name and . TRANSITION CARE MANAGEMENT INITIAL OUTREACH DOCUMENTATION: No data to display SUMMARY: -Pt discharged from [facility] on 12/28/23. -Admitted for: syncope and shari Below copied from [employer] History of Present Illness Chief Complaint: Syncope Detail of Chief Complaint: 6 syncopal/near syncopal episodes over the last 2 weeks Informant: patient Onset/Context/Timing Onset: Yesterday Context: Sudden Onset Timing: Intermittent Quality: Patient gets lightheaded when he rises from sitting position and passes out Location: Home Current Severity: Presently patient is supine in examination bed and has no symptoms Maximum Severity: All 6 episodes occurred while patient was rising from a sitting position Worsened by: Nothing Relieved by: Nothing Associated Symptoms Associated Symptoms: complains of head pain and buttocks pain Narrative Narrative: Patient is a 58-year-old male. He saw his primary care doctor. His primary care doctor discontinued his amlodipine and lisinopril. Patient denies black or maroon-colored stool. Patient states 2 to 3 days ago he had dark-colored emesis. This was not followed or preceded by a syncopal episode. He is on no anticoagulant. He denies bruising easily. Denies blood in his urine. Denies bleeding of his gums. Lasix also was yesterday. All of the episodes occurred when he charlie from a sitting position to a standing position. There is no history of diabetes or autonomic dysfunction. Medical decision making narrative: All events occurred when patient had change in position from sitting sign. Will obtain orthostatic vitals. EKG was obtained. CBC was obtained assess HANDH and BMP was obtained to assess BUN to creatinine ratio. If this is elevated since he reported dark emesis even though he denies black or maroon stool a couple days ago will perform rectal and possibly have nurse insert NG to assess for GI bleed. Plan #syncope likely due to orthostatic hypotension dizziness is worse when he gets out of bed and tries to ambulate orthostatics were positive, with diastolic BP dropping > 10mmhg with patient getting up. continue gentle hydration with IVF 2D ehco showed EF of 60% with normal LV size and no regional wall motion abnormalities, with stage 1 diastolic dysfunction PT/OT on board. fall precautions will benefit from 30 day event monitor on outpatient basis #SHARI Creatinine was elevated at over 3 when he was admitted. He was hydrated with IV fluids and creatinine is down to 1.65. Continue gentle hydration and monitor. #Hyponatremia: Sodium was 129 on admission and is now up to 134 after hydration with fluids. Was likely due to volume depletion. Will continue hydration and monitor. #Hypothyroidism: on synthroid. # Hypertension: On propranolol #GERD: On omeprazole. Complains of retrosternal burning pain with swallowing. Will add on surfactant and increase omeprazole to 40 mg twice daily and monitor. 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 Hospital Course: Patient is a 58 y/o male with a PMH as outlined who was admitted via the ED with a complaint of recurrent syncope. He said the syncope was usually when he got up from a seated position. HE had six syncopal episodes over the last few weeks prior to admission. Orthostatics were positive on admission. CBC was unremarkable, and BNP was significant for sodium of 129, potassium of 3.3 and BUN of 45. He was admitted and managed for syncope due to orthostatic hypotension. HE was hydrated with IV fluids. Hyponatremia improved with hydration as well as creatinine trending down to 1.07. 2D echo showed no regional motion abnormalities and showed stage I diastolic dysfunction as well as normal left ventricular size and EF of 60%. Patient did complain of some retrosternal burning sensation. He did have a history of GERD and was on ibuprofen. Ibuprofen was discontinued and his pantoprazole was increased to 40 mg daily to 40 mg twice daily. He was counseled not to use any NSAIDs and was given a referral to gastroenterology on outpatient basis. Of note patient also had a history of transient urinary retention was in the hospital and was straight cathed in the hos (more content not included)... [facility] 12-29-2023 Note Patient Outreach (FA MPWS) SORAYA BOWSER ([id number]) 1965 M Date Time Provider Department 12/29/23 NYA WILLIS During your visit today, we recorded the following information about you: Nya WillisCOCO 12/29/2023 4:28 PM Signed TRANSITION CARE MANAGEMENT (TCM) INITIAL CONTACT [employer]house [employer] Outreach Provider Action/FYI: 7 day tcn Felling a little better, still lightheaded and off balance. No further syncope episodes. He is changing positions slowly. He is awaiting 30 day heart Holter to arrive via mail. Had echo done while admitted but has not heard results of that. Not scheduled with Cardio. He was prescribed protonix 40 mg BID and advised to stop omeprazole and ibuprofen. Initial contact with patient post discharge, spoke to patient 12/29/23. Patient identified by name and . TRANSITION CARE MANAGEMENT INITIAL OUTREACH DOCUMENTATION: No data to display SUMMARY: -Pt discharged from [facility] on 12/28/23. -Admitted for: syncope and shari Below copied from [employer] History of Present Illness Chief Complaint: Syncope Detail of Chief Complaint: 6 syncopal/near syncopal episodes over the last 2 weeks Informant: patient Onset/Context/Timing Onset: Yesterday Context: Sudden Onset Timing: Intermittent Quality: Patient gets lightheaded when he rises from sitting position and passes out Location: Home Current Severity: Presently patient is supine in examination bed and has no symptoms Maximum Severity: All 6 episodes occurred while patient was rising from a sitting position Worsened by: Nothing Relieved by: Nothing Associated Symptoms Associated Symptoms: complains of head pain and buttocks pain Narrative Narrative: Patient is a 58-year-old male. He saw his primary care doctor. His primary care doctor discontinued his amlodipine and lisinopril. Patient denies black or maroon-colored stool. Patient states 2 to 3 days ago he had dark-colored emesis. This was not followed or preceded by a syncopal episode. He is on no anticoagulant. He denies bruising easily. Denies blood in his urine. Denies bleeding of his gums. Lasix also was yesterday. All of the episodes occurred when he charlie from a sitting position to a standing position. There is no history of diabetes or autonomic dysfunction. Medical decision making narrative: All events occurred when patient had change in position from sitting sign. Will obtain orthostatic vitals. EKG was obtained. CBC was obtained assess HANDH and BMP was obtained to assess BUN to creatinine ratio. If this is elevated since he reported dark emesis even though he denies black or maroon stool a couple days ago will perform rectal and possibly have nurse insert NG to assess for GI bleed. Plan #syncope likely due to orthostatic hypotension dizziness is worse when he gets out of bed and tries to ambulate orthostatics were positive, with diastolic BP dropping > 10mmhg with patient getting up. continue gentle hydration with IVF 2D ehco showed EF of 60% with normal LV size and no regional wall motion abnormalities, with stage 1 diastolic dysfunction PT/OT on board. fall precautions will benefit from 30 day event monitor on outpatient basis #SHARI Creatinine was elevated at over 3 when he was admitted. He was hydrated with IV fluids and creatinine is down to 1.65. Continue gentle hydration and monitor. #Hyponatremia: Sodium was 129 on admission and is now up to 134 after hydration with fluids. Was likely due to volume depletion. Will continue hydration and monitor. #Hypothyroidism: on synthroid. # Hypertension: On propranolol #GERD: On omeprazole. Complains of retrosternal burning pain with swallowing. Will add on surfactant and increase omeprazole to 40 mg twice daily and monitor. 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 Hospital Course: Patient is a 58 y/o male with a PMH as outlined who was admitted via the ED with a complaint of recurrent syncope. He said the syncope was usually when he got up from a seated position. HE had six syncopal episodes over the last few weeks prior to admission. Orthostatics were positive on admission. CBC was unremarkable, and BNP was significant for sodium of 129, potassium of 3.3 and BUN of 45. He was admitted and managed for syncope due to orthostatic hypotension. HE was hydrated with IV fluids. Hyponatremia improved with hydration as well as creatinine trending down to 1.07. 2D echo showed no regional motion abnormalities and showed stage I diastolic dysfunction as well as normal left ventricular size and EF of 60%. Patient did complain of some retrosternal burning sensation. He did have a history of GERD and was on ibuprofen. Ibuprofen was discontinued and his pantoprazole was increased to 40 mg daily to 40 mg twice daily. He was counseled not to use any NSAIDs and was gi (more content not included)... [facility] 12-26-2023 Note HNO ID: [id number] Author: THEE ROMANO APRN.TRICOT KNITTING MACHINE OPERATOR Service: ? Author Type: Nurse Practitioner Type: Progress Notes Filed: 12/26/2023 13:29 Note Text: Chief Complaint Patient presents with: Hypotension: Passed out twice on Tuesday, once yesterday, injury to back of head and buttocks HPI Soraya Bowser is a 58 year old male who presents here today for Above Complaints. Patient is here with complaints of hypotension. Stating that he passed out twice on Tuesday, once yesterday, suffering injury to the back of his head, buttocks. States that he has a gash in the back of his head last evening Blood pressure this weekend was 80/50. Today before our visit his blood pressure was 139/79. He admits that he did not take his lisinopril last evening due to low blood pressure. At this time, the patient is prescribed amlodipine 10 mg, lisinopril 20 mg once daily, propranolol 20 mg once daily. He is not on a blood thinner. He states that he is not taking any medication for blood pressure at this time. Last lisinopril dose was 2 days ago. Has not taken amlodipine for a few days. Takes propranolol for tremor. Never called emergency services as he states he did not have a ride nor did he want to pay for a ambulance. Past medical history, appointments, medications, allergies reviewed. EXAM: BP 80/62 Pulse 95 Resp 16 Wt 115.3 kg (254 lb 3.1 oz) SpO2 96% BMI 37.01 kg/m? General Appearance: Well appearing, alert, in no acute distress, well-hydrated, well nourished.. Skin: Large gash to the back of his head, minimal drainage. Skin appears clammy. Lungs: Lungs clear to auscultation. No wheezing, rhonchi, rales.. Heart: RRR without murmur, gallop, or rubs. No ectopy. ASSESSMENT/PLAN: 1. Hypotension, unspecified hypotension type - ICD9: 458.9, ICD10: I95.9 (primary diagnosis) -Patient has continued hypotension in the office despite not being on any blood pressure medications for the past 2 to 3 days. Patient appears clammy. He overall states that he does not feel well. I recommended that we call the emergency squad to have him taken to the nearest emergency room. He refused. He states that he will walk across the street to the emergency room. I discussed that there is a risk of compromise, risk to his life and others if he decides to walk across the street. He verbalized understanding and continued with plan to walk across to [facility]. 2. Laceration of head without foreign body, unspecified part of head, sequela - ICD9: 906.0, ICD10: S01.91XS -See #1, unsure if he needs CAT scan, do to laceration. 3. Fall, initial encounter - ICD9: E888.9, ICD10: W19.XXXA -See #1 Report sent to [facility] via emergency room portal. Thee Romano APRN.TRICOT KNITTING MACHINE OPERATOR This note was partly generated using [employer] voice recognition dictation and may contain some misspelled or inaccurate words missed on review. [facility] 12-16-2023 Note HNO ID: [id number] Author: MÓNICA WALTON APRN.TRICOT KNITTING MACHINE OPERATOR Service: ? Author Type: Nurse Practitioner Type: Progress Notes Filed: 12/16/2023 10:45 Note Text: This is a 58 year old male who presents today with: Patient presents with: Acute Visit: back issues HISTORY OF PRESENT ILLNESS: Soraya Bowser is a 58 year old male. Patient presents with: Acute Visit: back issues Here in the office for back pain. Has a chronic history of low back pain. Refers that he fractured sacrum in high school when playing football. Pain seems to be progressively getting worse over the past several months. Doing increased lifting and bending at work. 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 No radiating symptoms down the legs. Has been using advil and tylenol which is mildly helpful. Has been stretching at home. Has tried icy hot and aspercream. Denies loss of bowel/bladder or saddle anesthesia. PAST MEDICAL HISTORY: PAST MEDICAL HISTORY Diagnosis Date SHARI (acute kidney injury) ([facility]) 12/27/2017 Alcohol abuse Anxiety Bipolar 1 disorder ([facility]) Cellulitis and abscess of unspecified site 10/28/2014 Essential hypertension 07/20/2018 GERD (gastroesophageal reflux disease) Impingement syndrome of right shoulder 07/26/2013 Left elbow pain Leukocytosis 12/24/2017 Macrocytic anemia 12/24/2017 Pulmonary emboli ([facility]) 12/2017 Pulmonary embolism, bilateral ([facility]) 12/24/2017 Severe protein-calorie malnutrition (HCC) 12/24/2017 Shoulder pain, right Thrombocytosis 12/24/2017 Unintentional weight loss 12/24/2017 PAST SURGICAL HISTORY Procedure Laterality Date COLONOSCOPY FLX DX W/COLLJ SPEC WHEN PFRMD N/A 08/18/2020 Kedar Brittanynicolette--[facility]--repeat 10 years PAST SURGICAL HISTORY OF Right 1998 right wrist debridement (s/p infection of pins from repair) PICC LINE INSERTION [place]PICC [place]AM) ([place]) 12/27/2017 ALLERGIES Patient has no known allergies. MEDICATIONS Current Outpatient Medications Medication Sig Phentermine HCl (ADIPEX-P) 37.5 mg tablet Take 1 tablet by mouth once daily for 90 days. tamsulosin (FLOMAX) 0.4 mg Take 1 capsule by mouth at bedtime as needed. brexpiprazole (REXULTI) 3 mg tablet Take 1 tablet by mouth once daily. QUEtiapine (SEROQUEL) 100 mg tablet Take 1 tablet by mouth two times a day. vortioxetine (TRINTELLIX) 10 mg tablet Take 1 tablet by mouth once daily. propranolol (INDERAL) 20 mg tablet Take 1 tablet by mouth once daily. (Patient taking differently: Take 20 mg by mouth two times a day.) lisinopril (ZESTRIL) 20 mg tablet Take 1 tablet by mouth once daily. levothyroxine (SYNTHROID) 75 mcg tablet Take 1 tablet by mouth once daily. Take on empty stomach. For Thyroid amLODIPine (NORVASC) 10 mg tablet Take 1 tablet by mouth once daily. folic acid 1 mg tablet Take 1 tablet by mouth once daily. omeprazole (PRILOSEC) 40 mg capsule Take 1 capsule by mouth once daily. sildenafil (VIAGRA) 50 mg tablet Take 1 tablet 30-60 minutes prior to intercourse by mouth. divalproex DR (DEPAKOTE) 500 mg EC tablet Take 2 tablets by mouth once daily. traZODone HCl (DESYREL) 300 mg tablet Take 1 tablet by mouth daily at bedtime. melatonin 10 mg tab Take 1 tablet by mouth daily at bedtime. No current facility-administered medications for this visit. FAMILY HISTORY Adopted: Yes Problem Relation Age of Onset Cancer Father other (congestive heart failure) Maternal Grandmother No Known Problems Half-brother No Known Problems Half-brother Asthma Son No Known Problems Daughter Social History Tobacco Use Smoking status: Never Smokeless tobacco: Never Vaping Use Vaping Use: Never used Substance Use Topics Alcohol use: Yes Comment: Socially Drug use: No REVIEW OF SYSTEMS GENERAL: No weight loss, malaise or fevers/chills HEENT: Negative for frequent or significant headaches, No changes in hearing or vision. NECK: Negative for lumps, goiter, pain and significant neck swelling RESPIRATORY: Negative for cough, hemoptysis, wheezing, dyspnea or shortness of breath CARDIOVASCULAR: Negative for chest pain, leg swelling, orthopnea, or palpitations GI: No nausea, vomiting, or diarrhea/constipation. No hematochezia/melena. No heartburn or reflux symptoms. : No history of dysuria, frequency or incontinence MUSCULOSKELETAL: + Back Pain SKIN: Negative for lesions, rash, and itching ENDOCRINE: Negative for cold or heat intolerance, polyuria, polydipsia and goiter NEURO: No history of headaches, syncope, paralysis, seizures or tremors MOOD: Negative for depression, anxiety, or suicidal ideation. EXAM: BP 98/68 Pulse 94 Resp 16 Wt 113.9 kg (251 lb) SpO2 95% BMI 36.55 kg/m? PHYSICAL EXAM: General Appearance: Well appearing, alert, in no acute distress, well-hydrated, well nourished. Skin: Skin color, texture, turgor normal, no suspicious rashes or lesions. Head: Normocephalic, no masses, lesions, tenderness or abnormalities. Eyes: Anicteric sclera. Extraocular move (more content not included)... [facility] 11-02-2023 Note HNO ID: [id number] Author: MÓNICA WALTON APRN.TRICOT KNITTING MACHINE OPERATOR Service: ? Author Type: Nurse Practitioner Type: Progress Notes Filed: 11/02/2023 10:41 Note Text: This is a 58 year old male who presents today with: Patient presents with: Acute Visit: Passing out HISTORY OF PRESENT ILLNESS: Soraya Bowser is a 58 year old male. Patient presents with: Acute Visit: Passing out Here in the office for syncope. Started about 6 weeks ago, getting 1 episode per week. Will get dizziness when going from sitting to standing. Has passed out about 5 times. Has hit his head. LOC lasting seconds. Has had some on going SOB at times. Denies chest pain, palpitations, or edema. Taking lisinopril 20 mg, amlodipine 10 mg daily. Is currently taking propranolol 20 mg daily for tremor. Last ECG completed by [facility], 2018, showed NSR. Taking Adipex 37.5 mg for weight loss. Denies any palpitations or difficulty sleeping. PAST MEDICAL HISTORY: PAST MEDICAL HISTORY Diagnosis Date SHARI (acute kidney injury) ([facility]) 12/27/2017 Alcohol abuse Anxiety Bipolar 1 disorder ([facility]) Cellulitis and abscess of unspecified site 10/28/2014 Essential hypertension 07/20/2018 GERD (gastroesophageal reflux disease) Impingement syndrome of right shoulder 07/26/2013 Left elbow pain Leukocytosis 12/24/2017 Macrocytic anemia 12/24/2017 Pulmonary emboli (HCC) 12/2017 Pulmonary embolism, bilateral (HCC) 12/24/2017 Severe protein-calorie malnutrition ([facility]) 12/24/2017 Shoulder pain, right Thrombocytosis 12/24/2017 Unintentional weight loss 12/24/2017 PAST SURGICAL HISTORY Procedure Laterality Date COLONOSCOPY FLX DX W/COLLJ SPEC WHEN PFRMD N/A 08/18/2020 Kedar Tariq--[facility]--repeat 10 years PAST SURGICAL HISTORY OF Right 1998 right wrist debridement (s/p infection of pins from repair) PICC LINE INSERTION [place]ICC TEAM) [place] 12/27/2017 ALLERGIES Patient has no known allergies. MEDICATIONS Current Outpatient Medications Medication Sig Phentermine HCl (ADIPEX-P) 37.5 mg tablet Take 1 tablet by mouth once daily for 90 days. predniSONE (DELTASONE) 10 mg tablet Take 4 tabs daily for 3 days, then 2 tabs daily for 3 days, then 1 tab daily for 3 days with food. tamsulosin (FLOMAX) 0.4 mg Take 1 capsule by mouth at bedtime as needed. brexpiprazole (REXULTI) 3 mg tablet Take 1 tablet by mouth once daily. QUEtiapine (SEROQUEL) 100 mg tablet Take 1 tablet by mouth two times a day. vortioxetine (TRINTELLIX) 10 mg tablet Take 1 tablet by mouth once daily. propranolol (INDERAL) 20 mg tablet Take 1 tablet by mouth once daily. (Patient taking differently: Take 20 mg by mouth two times a day.) lisinopril (ZESTRIL) 20 mg tablet Take 1 tablet by mouth once daily. levothyroxine (SYNTHROID) 75 mcg tablet Take 1 tablet by mouth once daily. Take on empty stomach. For Thyroid amLODIPine (NORVASC) 10 mg tablet Take 1 tablet by mouth once daily. folic acid 1 mg tablet Take 1 tablet by mouth once daily. omeprazole (PRILOSEC) 40 mg capsule Take 1 capsule by mouth once daily. sildenafil (VIAGRA) 50 mg tablet Take 1 tablet 30-60 minutes prior to intercourse by mouth. divalproex DR (DEPAKOTE) 500 mg EC tablet Take 2 tablets by mouth once daily. traZODone HCl (DESYREL) 300 mg tablet Take 1 tablet by mouth daily at bedtime. melatonin 10 mg tab Take 1 tablet by mouth daily at bedtime. No current facility-administered medications for this visit. FAMILY HISTORY Adopted: Yes Problem Relation Age of Onset Cancer Father other (congestive heart failure) Maternal Grandmother No Known Problems Half-brother No Known Problems Half-brother Asthma Son No Known Problems Daughter Social History Tobacco Use Smoking status: Never Smokeless tobacco: Never Vaping Use Vaping Use: Never used Substance Use Topics Alcohol use: Yes Comment: Socially Drug use: No REVIEW OF SYSTEMS GENERAL: No weight loss, malaise or fevers/chills HEENT: Negative for frequent or significant headaches, No changes in hearing or vision. NECK: Negative for lumps, goiter, pain and significant neck swelling RESPIRATORY: Negative for cough, hemoptysis, wheezing, dyspnea or shortness of breath CARDIOVASCULAR: Negative for chest pain, leg swelling, orthopnea, or palpitations GI: No nausea, vomiting, or diarrhea/constipation. No hematochezia/melena. No heartburn or reflux symptoms. : No history of dysuria, frequency or incontinence MUSCULOSKELETAL: Negative for joint pain or swelling. SKIN: Negative for lesions, rash, and itching ENDOCRINE: Negative for cold or heat intolerance, polyuria, polydipsia and goiter NEURO: No history of headaches, syncope, paralysis, seizures or tremors MOOD: Negative for depression, anxiety, or suicidal ideation. EXAM: BP 103/63 Pulse 76 Resp 16 Wt 116.1 kg (256 lb) SpO2 95% BMI 37.28 kg/m? Orthostatic vital signs: Layin/70, pulse 77, sitting 103/63, pulse 79, standing 90/57, pulse 103 PHYSICAL EXAM: General Ap (more content not included)... [facility] 10-19-2023 Note HNO ID: [id number] Author: MÓNICA WALTON APRN.TRICOT KNITTING MACHINE OPERATOR Service: ? Author Type: Nurse Practitioner Type: Progress Notes Filed: 10/19/2023 09:20 Note Text: This is a 58 year old male who presents today with: Patient presents with: Acute Visit: weight loss HISTORY OF PRESENT ILLNESS: Soraya Bowser is a 58 year old male. Patient presents with: Acute Visit: weight loss Here in the office for weight check. Last month weight was 263 lbs. Todays weight 258 lbs. taking Adipex 37.5 mg daily. Has been eating a well balanced diet and getting exercise. Tolerating medication well without any side effects. Denies any difficulty sleeping or palpitations. Rash, started last weekend on arms bilaterally and now has spread to abdomen. Taking edith daily. Rash is not itchy. 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 PAST MEDICAL HISTORY: PAST MEDICAL HISTORY Diagnosis Date SHARI (acute kidney injury) ([facility]) 12/27/2017 Alcohol abuse Anxiety Bipolar 1 disorder ([facility]) Cellulitis and abscess of unspecified site 10/28/2014 Essential hypertension 07/20/2018 GERD (gastroesophageal reflux disease) Impingement syndrome of right shoulder 07/26/2013 Left elbow pain Leukocytosis 12/24/2017 Macrocytic anemia 12/24/2017 Pulmonary emboli ([facility]) 12/2017 Pulmonary embolism, bilateral ([facility]) 12/24/2017 Severe protein-calorie malnutrition ([facility]) 12/24/2017 Shoulder pain, right Thrombocytosis 12/24/2017 Unintentional weight loss 12/24/2017 PAST SURGICAL HISTORY Procedure Laterality Date COLONOSCOPY FLX DX W/COLLJ SPEC WHEN PFRMD N/A 08/18/2020 Kedar Tariq--[facility]--repeat 10 years PAST SURGICAL HISTORY OF Right 1998 right wrist debridement (s/p infection of pins from repair) PICC LINE INSERTION (PICC TEAM) ([place] 12/27/2017 ALLERGIES Patient has no known allergies. MEDICATIONS Current Outpatient Medications Medication Sig tamsulosin (FLOMAX) 0.4 mg Take 1 capsule by mouth at bedtime as needed. brexpiprazole (REXULTI) 3 mg tablet Take 1 tablet by mouth once daily. QUEtiapine (SEROQUEL) 100 mg tablet Take 1 tablet by mouth two times a day. vortioxetine (TRINTELLIX) 10 mg tablet Take 1 tablet by mouth once daily. propranolol (INDERAL) 20 mg tablet Take 1 tablet by mouth once daily. lisinopril (ZESTRIL) 20 mg tablet Take 1 tablet by mouth once daily. levothyroxine (SYNTHROID) 75 mcg tablet Take 1 tablet by mouth once daily. Take on empty stomach. For Thyroid amLODIPine (NORVASC) 10 mg tablet Take 1 tablet by mouth once daily. folic acid 1 mg tablet Take 1 tablet by mouth once daily. omeprazole (PRILOSEC) 40 mg capsule Take 1 capsule by mouth once daily. sildenafil (VIAGRA) 50 mg tablet Take 1 tablet 30-60 minutes prior to intercourse by mouth. divalproex DR (DEPAKOTE) 500 mg EC tablet Take 2 tablets by mouth once daily. traZODone HCl (DESYREL) 300 mg tablet Take 1 tablet by mouth daily at bedtime. melatonin 10 mg tab Take 1 tablet by mouth daily at bedtime. No current facility-administered medications for this visit. FAMILY HISTORY Adopted: Yes Problem Relation Age of Onset Cancer Father other (congestive heart failure) Maternal Grandmother No Known Problems Half-brother No Known Problems Half-brother Asthma Son No Known Problems Daughter Social History Tobacco Use Smoking status: Never Smokeless tobacco: Never Vaping Use Vaping Use: Never used Substance Use Topics Alcohol use: Yes Comment: Socially Drug use: No REVIEW OF SYSTEMS GENERAL: No weight loss, malaise or fevers/chills HEENT: Negative for frequent or significant headaches, No changes in hearing or vision. NECK: Negative for lumps, goiter, pain and significant neck swelling RESPIRATORY: Negative for cough, hemoptysis, wheezing, dyspnea or shortness of breath CARDIOVASCULAR: Negative for chest pain, leg swelling, orthopnea, or palpitations GI: No nausea, vomiting, or diarrhea/constipation. No hematochezia/melena. No heartburn or reflux symptoms. : No history of dysuria, frequency or incontinence MUSCULOSKELETAL: Negative for joint pain or swelling. SKIN: + Rash ENDOCRINE: Negative for cold or heat intolerance, polyuria, polydipsia and goiter NEURO: No history of headaches, syncope, paralysis, seizures or tremors MOOD: Negative for depression, anxiety, or suicidal ideation. EXAM: BP 112/66 Pulse 74 Resp 16 Wt 117 kg (258 lb) SpO2 96% BMI 37.57 kg/m? PHYSICAL EXAM: General Appearance: Well appearing, alert, in no acute distress, well-hydrated, well nourished. Skin: Dry, flat Erythematic rash noted to bilateral arms as well as abdomen. No crusting or seeping noted. Head: Normocephalic, no masses, lesions, tenderness or abnormalities. Eyes: Anicteric sclera. Extraocular movements are intact. Lungs: Lungs clear to auscultation. No wheezing, rhonchi, rales. Heart: RRR without murmur, gallop, or rubs. No ectopy. Extremities: No deformities, edema, skin discoloration, clu (more content not included)... [facility] 09-07-2023 Note HNO ID: [id number] Author: MÓNICA WALTON APRN.TRICOT KNITTING MACHINE OPERATOR Service: ? Author Type: Nurse Practitioner Type: Progress Notes Filed: 09/07/2023 12:05 Note Text: This is a 58 year old male who presents today with: Patient presents with: Acute Visit: cold and med follow up HISTORY OF PRESENT ILLNESS: Soraya Bowser is a 58 year old male. Patient presents with: Acute Visit: cold and med follow up Here in the office for weight/mediation Check. Taking adipex 37.5 mg daily. Last weight 266 lbs.Todays weight is 263 lbs. Has been eating healthy diet. Still doing 2 workouts daily, trying to increase steps per day. Trying to eat 1800 calories daily. Has been tolerating the medication. No difficulty sleeping or palpitations. URI: Cough, sore throat, post nasal drip, and SOB at times. Symptoms started on Tuesday. Taking OTC cold and cough medications which have not been beneficial. Difficulty sleeping due to the nasal congestion. No nasal discharge but pressure. Tuesday and Tuesday had fever. PAST MEDICAL HISTORY: PAST MEDICAL HISTORY Diagnosis Date SHARI (acute kidney injury) ([facility]) 12/27/2017 Alcohol abuse Anxiety Bipolar 1 disorder ([facility]) Cellulitis and abscess of unspecified site 10/28/2014 Essential hypertension 07/20/2018 GERD (gastroesophageal reflux disease) Impingement syndrome of right shoulder 07/26/2013 Left elbow pain Leukocytosis 12/24/2017 Macrocytic anemia 12/24/2017 Pulmonary emboli (HCC) 12/2017 Pulmonary embolism, bilateral (HCC) 12/24/2017 Severe protein-calorie malnutrition (HCC) 12/24/2017 Shoulder pain, right Thrombocytosis 12/24/2017 Unintentional weight loss 12/24/2017 PAST SURGICAL HISTORY Procedure Laterality Date COLONOSCOPY FLX DX W/COLLJ SPEC WHEN PFRMD N/A 08/18/2020 Kedar Tariq--[facility]--repeat 10 years PAST SURGICAL HISTORY OF Right 1998 right wrist debridement (s/p infection of pins from repair) PICC LINE INSERTION (PICC TEAM) [place] 12/27/2017 ALLERGIES Patient has no known allergies. MEDICATIONS Current Outpatient Medications Medication Sig Phentermine HCl (ADIPEX-P) 37.5 mg tablet Take 1 tablet by mouth once daily for 30 days. brexpiprazole (REXULTI) 3 mg tablet Take 1 tablet by mouth once daily. QUEtiapine (SEROQUEL) 100 mg tablet Take 1 tablet by mouth two times a day. vortioxetine (TRINTELLIX) 10 mg tablet Take 1 tablet by mouth once daily. propranolol (INDERAL) 20 mg tablet Take 1 tablet by mouth once daily. lisinopril (ZESTRIL) 20 mg tablet Take 1 tablet by mouth once daily. tamsulosin (FLOMAX) 0.4 mg Take 1 capsule by mouth once daily at bedtime levothyroxine (SYNTHROID) 75 mcg tablet Take 1 tablet by mouth once daily. Take on empty stomach. For Thyroid amLODIPine (NORVASC) 10 mg tablet Take 1 tablet by mouth once daily. folic acid 1 mg tablet Take 1 tablet by mouth once daily. omeprazole (PRILOSEC) 40 mg capsule Take 1 capsule by mouth once daily. sildenafil (VIAGRA) 50 mg tablet Take 1 tablet 30-60 minutes prior to intercourse by mouth. SUMAtriptan (IMITREX) 50 mg tablet Take 1 at the initiation of headache. May repeat in 2 hours if no relief. (Patient not taking: Reported on 02/25/2023) divalproex DR (DEPAKOTE) 500 mg EC tablet Take 2 tablets by mouth once daily. traZODone HCl (DESYREL) 300 mg tablet Take 1 tablet by mouth daily at bedtime. triHEXYphenidyl (ARTANE) 2 mg tablet Take 2 mg by mouth three times daily. (Patient not taking: Reported on 01/21/2022) melatonin 10 mg tab Take 1 tablet by mouth daily at bedtime. No current facility-administered medications for this visit. FAMILY HISTORY Adopted: Yes Problem Relation Age of Onset Cancer Father other (congestive heart failure) Maternal Grandmother No Known Problems Half-brother No Known Problems Half-brother Asthma Son No Known Problems Daughter Social History Tobacco Use Smoking status: Never Smokeless tobacco: Never Vaping Use Vaping Use: Never used Substance Use Topics Alcohol use: Yes Comment: Socially Drug use: No REVIEW OF SYSTEMS GENERAL: No weight loss, malaise or fevers/chills HEENT: + Sore throat, postnasal drip, sinus pressure NECK: Negative for lumps, goiter, pain and significant neck swelling RESPIRATORY: + Cough CARDIOVASCULAR: Negative for chest pain, leg swelling, orthopnea, or palpitations GI: No nausea, vomiting, or diarrhea/constipation. No hematochezia/melena. No heartburn or reflux symptoms. : No history of dysuria, frequency or incontinence MUSCULOSKELETAL: Negative for joint pain or swelling. SKIN: Negative for lesions, rash, and itching ENDOCRINE: Negative for cold or heat intolerance, polyuria, polydipsia and goiter NEURO: No history of headaches, syncope, paralysis, seizures or tremors MOOD: Negative for depression, anxiety, or suicidal ideation. EXAM: BP 106/80 Pulse 91 Temp 37 ?C (98.6 ?F) Resp 16 Wt 119.3 kg (263 lb) SpO2 95% BMI 38.29 kg/m? PHYSICAL EXAM: General Appearance: Well appearing, emperatriz (more content not included)... [facility] 07-29-2023 Note HNO ID: [id number] Author: MÓNICA WALTON APRN.TRICOT KNITTING MACHINE OPERATOR Service: ? Author Type: Nurse Practitioner Type: Progress Notes Filed: 07/29/2023 10:32 Note Text: This is a 58 year old male who presents today with: Patient presents with: Follow Up: Weight loss HISTORY OF PRESENT ILLNESS: Soraya Bowser is a 58 year old male. Patient presents with: Follow Up: Weight loss Weight: Has been working on losing weight, has lost about 16 lbs since May. Doing 2 work outs daily at home. Eating whole foods. Cutting back on processed foods, higher carb foods. Increasing veggies. Feels like his weight loss has hit a plateau. Has not had any weight loss this week. Psych: History of bipolar. Following with psychiatrist, Ino Gupta. Taking Trintellix 10 mg, Depakote 500 mg, 2 tablets daily, Seroquel 100 mg twice. Migraine headaches: Found it was a reaction to medication, stopped medication and no longer has migraines GERD: Taking Prilosec 40 mg daily. Symptoms well controlled medication. HTN: Taking Norvasc 10 mg and propanolol 20 mg daily. Currently checking blood pressure at home, normal readings but refers getting 130's/80's. Tried increasing Lisinopril 20 mg ( took 2 tablets of the 10 mg) Blood pressure then was in 120/70. Would like to increase to the 20 mg. Denies chest pain, palpitations, dizziness, or edema. Lipids: Working on diet and lifestyle changes at home. Not currently taking any medication. Hypothyroidism: Taking Synthroid 50 mcg daily. Denies any difficulty swallowing, cold/heat intolerances. TSH was mildly elevated but returned back to normal after 6-8 weeks. ED: Using Viagra 50 mg as needed. PAST MEDICAL HISTORY: PAST MEDICAL HISTORY Diagnosis Date SHARI (acute kidney injury) (HCC) 12/27/2017 Alcohol abuse Anxiety Bipolar 1 disorder ([facility]) Cellulitis and abscess of unspecified site 10/28/2014 Essential hypertension 07/20/2018 GERD (gastroesophageal reflux disease) Impingement syndrome of right shoulder 07/26/2013 Left elbow pain Leukocytosis 12/24/2017 Macrocytic anemia 12/24/2017 Pulmonary emboli (HCC) 12/2017 Pulmonary embolism, bilateral (HCC) 12/24/2017 Severe protein-calorie malnutrition (HCC) 12/24/2017 Shoulder pain, right Thrombocytosis 12/24/2017 Unintentional weight loss 12/24/2017 PAST SURGICAL HISTORY Procedure Laterality Date COLONOSCOPY FLX DX W/COLLJ SPEC WHEN PFRMD N/A 08/18/2020 Kedar Tariq--[facility]--repeat 10 years PAST SURGICAL HISTORY OF Right 1998 right wrist debridement (s/p infection of pins from repair) PICC LINE INSERTION (PICC TEAM) ([place]) 12/27/2017 ALLERGIES Patient has no known allergies. MEDICATIONS Current Outpatient Medications Medication Sig tamsulosin (FLOMAX) 0.4 mg Take 1 capsule by mouth once daily at bedtime levothyroxine (SYNTHROID) 75 mcg tablet Take 1 tablet by mouth once daily. Take on empty stomach. For Thyroid lisinopril (ZESTRIL) 10 mg tablet Take 1 tablet by mouth once daily. amLODIPine (NORVASC) 10 mg tablet Take 1 tablet by mouth once daily. folic acid 1 mg tablet Take 1 tablet by mouth once daily. omeprazole (PRILOSEC) 40 mg capsule Take 1 capsule by mouth once daily. sildenafil (VIAGRA) 50 mg tablet Take 1 tablet 30-60 minutes prior to intercourse by mouth. brexpiprazole (REXULTI) 2 mg tablet TAKE 1 TABLET BY MOUTH ONCE DAILY. STOP CAPLYTA QUEtiapine (SEROQUEL) 50 mg tablet Take 100 mg by mouth daily at bedtime. SUMAtriptan (IMITREX) 50 mg tablet Take 1 at the initiation of headache. May repeat in 2 hours if no relief. (Patient not taking: Reported on 02/25/2023) vortioxetine (TRINTELLIX) 5 mg tablet Take 1 tablet by mouth once daily. divalproex DR (DEPAKOTE) 500 mg EC tablet Take 2 tablets by mouth once daily. traZODone HCl (DESYREL) 300 mg tablet Take 1 tablet by mouth daily at bedtime. propranolol (INDERAL) 20 mg tablet Take 1 tablet by mouth once daily. triHEXYphenidyl (ARTANE) 2 mg tablet Take 2 mg by mouth three times daily. (Patient not taking: Reported on 01/21/2022) melatonin 10 mg tab Take 1 tablet by mouth daily at bedtime. No current facility-administered medications for this visit. FAMILY HISTORY Adopted: Yes Problem Relation Age of Onset Cancer Father other (congestive heart failure) Maternal Grandmother No Known Problems Half-brother No Known Problems Half-brother Asthma Son No Known Problems Daughter Social History Tobacco Use Smoking status: Never Smokeless tobacco: Never Vaping Use Vaping Use: Never used Substance Use Topics Alcohol use: Yes Comment: Socially Drug use: No REVIEW OF SYSTEMS GENERAL: No weight loss, malaise or fevers/chills HEENT: Negative for frequent or significant headaches, No changes in hearing or vision. NECK: Negative for lumps, goiter, pain and significant neck swelling RESPIRATORY: Negative for cough, hemoptysis, wheezing, dyspnea or shortness of breath CARDIOVASCULAR: Negative for chest pain, leg swelling, orthopnea, or palpit (more content not included)... [facility] 06-23-2023 Note HNO ID: [id number] Author: MÓNICA WALTON APRN.JAC Service: ? Author Type: Nurse Practitioner Type: Progress Notes Filed: 06/23/2023 08:34 Note Text: Chief Complaint Patient presents with: Follow Up This Team Access Model encounter involved medical decision making outside of a scheduled office visit. Patient was offered a virtual/telemedicine appointment in lieu of an office visit due to recommendations to reduce patient exposure to COVID-19. Telephone was used for evaluation of this patient. Patient agrees to the visit: Yes Patient Location: [place] I have communicated my name and active licensure. The patient's identity and physical location were verified at the time of this visit. Either the patient or their legal litigation claim representative has been informed of the risks and benefits of -- and alternatives to -- treatment through a remote evaluation and consents to proceed with the evaluation remotely. GRACIE Bowser is a 58 year old male who is contacted today for a phone visit This is an established patient of Dr. Alirio Armas MD Reports: Discuss lab results and weight. Was seen in the office earlier this month for concerns for weight gain. Has been working on lifestyle changes at home. Labs revealed slightly increased TSH. Currently taking Synthroid 50 mcg daily. Has lost 6 lbs, increased exercise. Limiting alcohol use. Blood pressue: 140/80's-120/80's. Past medical history, appointments, medications, allergies reviewed 06/22/2023 Previous Medical History PAST MEDICAL HISTORY Diagnosis Date SHARI (acute kidney injury) (HCC) 12/27/2017 Alcohol abuse Anxiety Bipolar 1 disorder (HCC) Cellulitis and abscess of unspecified site 10/28/2014 Essential hypertension 07/20/2018 GERD (gastroesophageal reflux disease) Impingement syndrome of right shoulder 07/26/2013 Left elbow pain Leukocytosis 12/24/2017 Macrocytic anemia 12/24/2017 Pulmonary emboli (HCC) 12/2017 Pulmonary embolism, bilateral (HCC) 12/24/2017 Severe protein-calorie malnutrition (HCC) 12/24/2017 Shoulder pain, right Thrombocytosis 12/24/2017 Unintentional weight loss 12/24/2017 Previous Surgical History PAST SURGICAL HISTORY Procedure Laterality Date COLONOSCOPY FLX DX W/COLLJ SPEC WHEN PFRMD N/A 08/18/2020 Kedar Tariq--[facility]--repeat 10 years PAST SURGICAL HISTORY OF Right 1998 right wrist debridement (s/p infection of pins from repair) PICC LINE INSERTION [place]AM) [place] 12/27/2017 Family History FAMILY HISTORY Adopted: Yes Problem Relation Age of Onset Cancer Father other (congestive heart failure) Maternal Grandmother No Known Problems Half-brother No Known Problems Half-brother Asthma Son No Known Problems Daughter Patient Allergies ALLERGIES No Known Allergies Current Medications Current Outpatient Medications on File Prior to Visit Medication Sig lisinopril (ZESTRIL) 10 mg tablet Take 1 tablet by mouth once daily. ketoconazole (NIZORAL) 2 % shampoo Apply to affected area two times a week. amLODIPine (NORVASC) 10 mg tablet Take 1 tablet by mouth once daily. folic acid 1 mg tablet Take 1 tablet by mouth once daily. omeprazole (PRILOSEC) 40 mg capsule Take 1 capsule by mouth once daily. tamsulosin (FLOMAX) 0.4 mg Take 1 capsule by mouth daily at bedtime. sildenafil (VIAGRA) 50 mg tablet Take 1 tablet 30-60 minutes prior to intercourse by mouth. brexpiprazole (REXULTI) 2 mg tablet TAKE 1 TABLET BY MOUTH ONCE DAILY. STOP CAPLYTA QUEtiapine (SEROQUEL) 50 mg tablet Take 100 mg by mouth daily at bedtime. SUMAtriptan (IMITREX) 50 mg tablet Take 1 at the initiation of headache. May repeat in 2 hours if no relief. (Patient not taking: Reported on 02/25/2023) vortioxetine (TRINTELLIX) 5 mg tablet Take 1 tablet by mouth once daily. divalproex DR (DEPAKOTE) 500 mg EC tablet Take 2 tablets by mouth once daily. traZODone HCl (DESYREL) 300 mg tablet Take 1 tablet by mouth daily at bedtime. propranolol (INDERAL) 20 mg tablet Take 1 tablet by mouth once daily. levothyroxine (SYNTHROID) 50 mcg tablet Take 1 tablet by mouth once daily. Take on empty stomach. For Thyroid. triHEXYphenidyl (ARTANE) 2 mg tablet Take 2 mg by mouth three times daily. (Patient not taking: Reported on 01/21/2022) melatonin 10 mg tab Take 1 tablet by mouth daily at bedtime. No current facility-administered medications on file prior to visit. Social History Social History Tobacco Use Smoking status: Never Smokeless tobacco: Never Vaping Use Vaping Use: Never used Substance Use Topics Alcohol use: Yes Comment: Socially Drug use: No Review of Symptoms GENERAL: No malaise or fatigue. No fevers. HEENT: Negative for headaches No eye discharge or redness No earaches No sore throat Nose POS/NEG for congestion and nasal discharge NECK: Negative for pain or swelling. No lumps RESPIRATORY: No wheezing, SOB, Difficulty breathing. No cough CARDIOVASCULAR: Negative for chest pain GI: No nausea, v (more content not included)... [facility] 06-09-2023 Note HNO ID: [id number] Author: MÓNICA WALTON APRN.TRICOT KNITTING MACHINE OPERATOR Service: ? Author Type: Nurse Practitioner Type: Progress Notes Filed: 06/09/2023 10:46 Note Text: This is a 58 year old male who presents today with: Patient presents with: Acute Visit: weight gain HISTORY OF PRESENT ILLNESS: Soraya Bowser is a 58 year old male. Patient presents with: Acute Visit: weight gain Here in the office to discuss weight. Started to exercise at home, 5 days per week a couple weeks ago. Has been working on dietary changes, trying eat lean meat and veggies. Watching processed foods. Gained about 20 lbs in a month. Has noticed some SOB in the past month. Mild lower leg edema. HTN: Blood pressure has been elevated, 140's/70's. Taking Amlodipine 10 mg daily. No chest pain, palpitations, or dizziness. PAST MEDICAL HISTORY: PAST MEDICAL HISTORY Diagnosis Date SHARI (acute kidney injury) (HCC) 12/27/2017 Alcohol abuse Anxiety Bipolar 1 disorder ([facility]) Cellulitis and abscess of unspecified site 10/28/2014 Essential hypertension 07/20/2018 GERD (gastroesophageal reflux disease) Impingement syndrome of right shoulder 07/26/2013 Left elbow pain Leukocytosis 12/24/2017 Macrocytic anemia 12/24/2017 Pulmonary emboli (HCC) 12/2017 Pulmonary embolism, bilateral (HCC) 12/24/2017 Severe protein-calorie malnutrition (HCC) 12/24/2017 Shoulder pain, right Thrombocytosis 12/24/2017 Unintentional weight loss 12/24/2017 PAST SURGICAL HISTORY Procedure Laterality Date COLONOSCOPY FLX DX W/COLLJ SPEC WHEN PFRMD N/A 08/18/2020 Kedar Brittanynicolette--[facility]--repeat 10 years PAST SURGICAL HISTORY OF Right 1998 right wrist debridement (s/p infection of pins from repair) PICC LINE INSERTION (PICC TEAM) ([place]) 12/27/2017 ALLERGIES Patient has no known allergies. MEDICATIONS Current Outpatient Medications Medication Sig ketoconazole (NIZORAL) 2 % shampoo Apply to affected area two times a week. amLODIPine (NORVASC) 10 mg tablet Take 1 tablet by mouth once daily. folic acid 1 mg tablet Take 1 tablet by mouth once daily. omeprazole (PRILOSEC) 40 mg capsule Take 1 capsule by mouth once daily. tamsulosin (FLOMAX) 0.4 mg Take 1 capsule by mouth daily at bedtime. sildenafil (VIAGRA) 50 mg tablet Take 1 tablet 30-60 minutes prior to intercourse by mouth. brexpiprazole (REXULTI) 2 mg tablet TAKE 1 TABLET BY MOUTH ONCE DAILY. STOP CAPLYTA QUEtiapine (SEROQUEL) 50 mg tablet Take 100 mg by mouth daily at bedtime. SUMAtriptan (IMITREX) 50 mg tablet Take 1 at the initiation of headache. May repeat in 2 hours if no relief. (Patient not taking: Reported on 02/25/2023) vortioxetine (TRINTELLIX) 5 mg tablet Take 1 tablet by mouth once daily. divalproex DR (DEPAKOTE) 500 mg EC tablet Take 2 tablets by mouth once daily. traZODone HCl (DESYREL) 300 mg tablet Take 1 tablet by mouth daily at bedtime. propranolol (INDERAL) 20 mg tablet Take 1 tablet by mouth once daily. levothyroxine (SYNTHROID) 50 mcg tablet Take 1 tablet by mouth once daily. Take on empty stomach. For Thyroid. triHEXYphenidyl (ARTANE) 2 mg tablet Take 2 mg by mouth three times daily. (Patient not taking: Reported on 01/21/2022) melatonin 10 mg tab Take 1 tablet by mouth daily at bedtime. No current facility-administered medications for this visit. FAMILY HISTORY Adopted: Yes Problem Relation Age of Onset Cancer Father other (congestive heart failure) Maternal Grandmother No Known Problems Half-brother No Known Problems Half-brother Asthma Son No Known Problems Daughter Social History Tobacco Use Smoking status: Never Smokeless tobacco: Never Vaping Use Vaping Use: Never used Substance Use Topics Alcohol use: Yes Comment: Socially Drug use: No REVIEW OF SYSTEMS GENERAL: + Weight Gain HEENT: Negative for frequent or significant headaches, No changes in hearing or vision. NECK: Negative for lumps, goiter, pain and significant neck swelling RESPIRATORY: + SOB CARDIOVASCULAR: Negative for chest pain, leg swelling, orthopnea, or palpitations GI: No nausea, vomiting, or diarrhea/constipation. No hematochezia/melena. No heartburn or reflux symptoms. : No history of dysuria, frequency or incontinence MUSCULOSKELETAL: Negative for joint pain or swelling. SKIN: Negative for lesions, rash, and itching ENDOCRINE: Negative for cold or heat intolerance, polyuria, polydipsia and goiter NEURO: No history of headaches, syncope, paralysis, seizures or tremors MOOD: Negative for depression, anxiety, or suicidal ideation. EXAM: BP 142/72 Pulse 89 Resp 16 Wt 127.9 kg (282 lb) SpO2 97% BMI 41.06 kg/m? PHYSICAL EXAM: General Appearance: Well appearing, alert, in no acute distress, well-hydrated, well nourished. Skin: Skin color, texture, turgor normal, no suspicious rashes or lesions. Head: Normocephalic, no masses, lesions, tenderness or abnormalities. Eyes: Anicteric sclera. Extraocular movements are intact. Lungs: Lungs clear to auscul (more content not included)... [facility] 05-03-2023 Note HNO ID: [id number] Author: Thee Romano APRN.TRICOT KNITTING MACHINE OPERATOR Service: ? Author Type: Nurse Practitioner Type: Progress Notes Filed: 05/03/2023 8:56 AM Note Text: Chief Complaint Patient presents with: Derm Problem: Red, irritated, dry areas on face AND scalp x 1 year; worsens during winter season HPI Soraya Bowser is a 57 year old male who presents here today for Above Complaints. Patient is here for skin complaint. Present for approximately 1 year. Location is on his scalp, eyebrows, and between eyes. Also a small amount on his mustache. Described as red, irritated. Not really itchy. Describes some flakiness. Worse in the winter months. Has not applied anything to the area except for lotion. [place] had recommended he follow-up. No known history of eczema or psoriasis. Past medical history, appointments, medications, allergies reviewed. EXAM: BP 153/76 Pulse 78 Resp 16 Wt 119 kg (262 lb 6.4 oz) SpO2 97% BMI 38.21 kg/m? General Appearance: Well appearing, alert, in no acute distress, well-hydrated, well nourished.. Skin: Area between eyebrows is red, flaking. Extending into the eyebrows. Small amount of red irritation in his mustache, goatee. In his scalp he has multiple areas of redness, scaliness, flakiness. They are not painful when palpated. No pustules present.. ASSESSMENT/PLAN: 1. Skin lesion - ICD9: 709.9, ICD10: L98.9 (primary diagnosis) - CONSULT TO DERMATOLOGY 2. Skin irritation - ICD9: 709.9, ICD10: R23.8 -Unclear etiology. Possible etiologies include eczema, psoriasis of the scalp, or fungal. Trial ketoconazole shampoo with rubbing into scalp, area in between eyes and eyebrows. See dermatology if not improving. Gave recommendations of Shanice Pool or [facility] in [place] - CONSULT TO DERMATOLOGY - KETOCONAZOLE 2 % SHAMPOO Thee Romano APRN.TRICOT KNITTING MACHINE OPERATOR partly generated using [employer] voice recognition dictation and may contain some misspelled or inaccurate words missed on review. [facility] Summary Purpose Family History No Family History Records FoundUnknown Family Member Name Dates Details Adopted Status:Active Advance Directives No Advanced Directives Records Found Name Dates Details Immunization Registry [place] - Effective on 03/17/2018. Expiration date unspecified Effective:17-Mar-2018 Instructions Name Dates Details Non-smoker : How to access h ealt information online Indication:Non-smoker Non-smoker : How to access h ealth information online - Detail Indication:Non-smoker Non-smoker : Patient Instruc tions Indication:Non-smoker Additional Source Comments (unrecognized sect ion and content) No Status Records FoundNo Status Records FoundNo Status Records FoundNo Status Records Found INFORMATION SOURCE (unrecogn ized section and content) DATE CREATED AUTHOR 11/15/2017 [facility] DATE CREATED AUTHOR AUTHOR'S CHELO BOATENG 01/20/2018 [facility] DATE CREATED AUTHOR AUTHOR'S ORGANIZ ATION 02/06/2018 [facility] DATE CREATED AUTHOR AUTHOR'S ORGANELY ATION 03/02/2024 [facility] FOR RECORDS PERTAINING TO PATIENTS WHO ARE OR HAVE BEEN ENROLLED IN A CHEMICAL DEPENDENCY/SUBSTANCEABUSE PROGRAM, SOME INFORMATION MAY BE OMITTED. This clinical summary was aggregated from multiple sources. Caution should be exercised in using it in the provision of clinical care. This summary normalizes information from multiple sources, and as a consequence, information in this document may materially change the coding, format and clinical context of patient data. In addition, data may be omitted in some cases. CLINICAL DECISIONS SHOULD BE BASED ON THE PRIMARY CLINICAL RECORDS. [facility] [employer] provides no warranty or guarantee of the accuracy or completeness of information in this document.
[2024-03-17 20:46] VITALS: PULSE 100; RESP 22; O2SAT 96
== END 2024-03-17 22:52 | disposition home or self-care (01) ==
PROVIDERS: Emergency Provider Emergency Medicine; PCP Family Medicine; Visit Provider Emergency Medicine
DX: S09.90XA Unspecified injury of head, initial encounter (principal); F31.9 Bipolar disorder, unspecified; I10 Essential (primary) hypertension; F10.129 Alcohol abuse with intoxication, unspecified; S16.1XXA Strain of muscle, fascia and tendon at neck level, initial encounter; W18.30XA Fall on same level, unspecified, initial encounter; Y93.89 Activity, other specified; K21.9 Gastro-esophageal reflux disease without esophagitis; Z79.899 Other long term (current) drug therapy; F41.8 Other specified anxiety disorders
CPT/HCPCS: 70450; 70486; 72125; 99284

== ENCOUNTER 2024-10-16 11:49 | Inpatient (IN) | payer MEDICARE, MEDICAID, SELFPAY ==
[2024-10-16] VITALS (9 sets, daily range): BP systolic 113–162; BP diastolic 64–89; PULSE 69–84; RESP 14–18; TEMP 36.6–37.1; O2SAT 93–97; BMI 38.2; BMI 38.3
--- NOTE | 2024-10-16 12:23 | CT_ITS ---
PROCEDURE: CTA HEAD AND NECK W/ CONTRAST 10/16/2024 REASON FOR EXAM: DYSARTHRIA TECHNIQUE: CTA imaging of the head and neck from the aortic arch to the skull vertex with out contrast and with intravenous contrast. Multiplanar and multisequence images were obtained. CONTRAST: 104 cc Isovue-300 One or more dose reduction techniques were used (e.g., Automated exposure control, adjustment of the mA and/or kV according to patient size, use of iterative reconstruction technique). RADIATION DOSE SUMMARY: DLP: 1732.74 mGycm COMPARISON: None FINDINGS: Aortic Arch: Unremarkable Brachiocephalic and Subclavians: Patent RIGHT Carotid: Right CCA: Patent Right ICA: Patent Maximum stenosis (NASCET): 0 % Right ECA: Patent LEFT Carotid: Left CCA: Patent Left ICA: Patent Maximum stenosis (NASCET): 0 % Left ECA: Patent Vertebrals: Patent RIGHT Vertebral: Patent LEFT Vertebral: Patent Anatomy: Unremarkable. Minimal calcified plaque is noted. Aneurysm or avm: None Anterior cerebral arteries: Patent Middle cerebral arteries: Patent Basilar artery: Patent Posterior cerebral arteries: Patent Other major branches of the posterior circulation: Unremarkable Major venous structures: Patent Other findings: Neck: Unremarkable lungs: Unremarkable bones: Unremarkable CT/CTA Head AND Neck W/ Contrast IMPRESSION: Negative CTA of the head and neck with contrast. Reading Location: [facility]
--- NOTE | 2024-10-16 12:24 | EKG12_ITS ---
Test Reason : CHEST PAIN Blood Pressure : */* mmHG Vent. Rate : 76 BPM Atrial Rate : 76 BPM P-R Int : 184 ms QRS Dur : 96 ms QT Int : 396 ms P-R-T Axes : 32 -4 38 degrees QTcB Int : 445 ms Normal sinus rhythm Normal ECG Confirmed by Malvin Mercedes ([id number]), department editor NEHA DE LEÓN ([id number]) on 10/22/2024 11:23:39 AM Referred By: Breezy Asher Confirmed By: Malvin Mercedes
--- NOTE | 2024-10-16 12:33 | EX.ED.DYSGE1 ---
HPI History of Present Illness Chief Complaint: Weakness Narrative Narrative: Chief complaint and HPI: Dysarthria and unsteady gait. 59-year-old male with past medical history of bipolar disorder and hypothyroidism presents for evaluation of dysarthria and unsteady gait. Patient states 2 weeks ago he had flulike symptoms including body aches, fever, nausea and vomiting. He states the symptoms improved. He states last he felt not himself and began slurring his speech. He states he also feels that his gait is unsteady. He saw his PCP for this and they were worried about CVA as they confirmed this is not patient's baseline speech and sent him in for evaluation. He denies any fever, chills, shortness of breath, chest pain, abdominal pain, nausea, vomiting, dysuria, numbness/tingling currently. Denies any focal weakness but states that he is generally weak. States he feels like he is slightly straining to find his words at times. Review of systems: See HPI Medications: As listed on the chart Allergies: As listed on the chart PFSH: Per chart Vital signs: As listed on the chart. Reviewed. Physical exam: Gen: A&O x3, NAD Head: Normocephalic, atraumatic Eyes: No sclera icterus, conjunctiva clear, PERRL, EOMI ENT: Moist mucous membranes, No facial asymmetry Neck: Trachea midline, No JVD CV: RRR, no murmurs, no peripheral edema Resp: Lungs CTA BL, no w/r/c GI: Abd soft, non-distended, non-tender, no r/r/g Musc: Full ROM, no deformity, strength +5/5 in all extremities, no pronator drift, no ataxia with [id number] testing and almaraz to heel testing, has wide-based stance when walking and feels unbalanced, DP/PT pulses +2 bilaterally Skin: Warm, dry, intact Neuro: Alert, oriented, grossly intact, sensation intact, no focal deficits, mild dysarthria, no aphasia, NIH 1 Psych: Cooperative, appropriate mood and affect [facility] Medical History Diarrhea Rectal bleeding Anxiety and depression Uncontrolled hypertension history of shoulder pain History of hemorrhoids Abnormal LFTs Bilateral pulmonary embolism Sepsis GERD (gastroesophageal reflux disease) Bipolar disorder Lung abscess Home Medications ?Medication ?Instructions ?Recorded ?Last Taken ?Type acetaminophen 500 mg tablet 1,000 mg PO Q6H PRN PRN Pain 12/23/17 01/31/18 History divalproex 500 mg tablet,extended 1,000 mg PO QHS seizure 08/14/20 12/25/23 History release 24 hr (Depakote ER) propranolol 20 mg tablet 20 mg PO BID heart/bp 08/14/20 12/26/23 History fexofenadine 60 mg tablet (Maria L 60 mg PO Q12H PRN allergies 12/26/23 Unknown History Allergy) levothyroxine 75 mcg tablet 75 mcg PO DAILY thyroid 12/26/23 12/26/23 History melatonin 10 mg capsule 10 mg PO QHS sleep 12/26/23 12/25/23 History vortioxetine 10 mg tablet 10 mg PO DAILY mood 12/26/23 12/26/23 History (Trintellix) pantoprazole 40 mg tablet,delayed 40 mg PO BID #60 tabs 12/28/23 Unknown Rx release fenofibrate 160 mg tablet 160 mg PO DAILY 10/16/24 Unknown History folic acid 1 mg tablet 1 mg PO DAILY 10/16/24 Unknown History lisinopril 20 mg tablet 20 mg PO DAILY 10/16/24 Unknown History lumateperone 21 mg capsule 21 mg PO QHS 10/16/24 Unknown History (Caplyta) sucralfate 1 gram tablet 1 g PO 4X/DAY 10/16/24 Unknown History tamsulosin 0.4 mg capsule 0.4 mg PO QHS PRN PRN 0 10/16/24 Unknown History trazodone 300 mg tablet 300 mg PO QHS 10/16/24 Unknown History Allergy/AdvReac Type Severity Reaction Status Date / Time No Known Allergies Allergy Verified 10/16/24 11:53 Family History Mother Hypertension Father Cancer unsure type Surgical History History of colonoscopy History of surgery on wrist Social History Smoking Status: Never smoker alcohol intake: current alcohol intake frequency: a few times a week EXAM Physical Exam Const Vital Signs: 10/16/24 11:51 10/16/24 12:32 10/16/24 13:52 Temperature 98.3 F Temperature Source Temporal Pulse Rate 75 77 Respiratory Rate 16 16 Respiratory Effort Normal Blood Pressure 145/89 H 113/64 Blood Pressure Mean 107 80 Pulse Ox 95 97 Oxygen Delivery Method Room Air MDM MDM MDM Narrative Medical decision making narrative: 59-year-old male with past medical history of bipolar disorder and hypothyroidism presents for evaluation of dysarthria and unsteady gait. Onset of symptoms . Dysarthria is difficult to assess on exam as it is mild however patient, family member, as well as PCP all attest that patient is slurring his speech it does not sound like his typical self. Differential diagnosis includes but is not limited to CVA, electrolyte abnormality. Given that patient's symptoms started on he is outside the stroke or CVA window. CVA workup ordered. EKG shows normal sinus rhythm without any acute ischemic changes. Heart rate 76. This was personally reviewed by al, emergency department physician. CBC with new leukopenia of 3.9. No anemia. Patient has history of thrombocytopenia with platelet count of 130. INR unremarkable. BMP without any significant electrolyte abnormality or TREMAINE. Patient has baseline transaminitis. Currently not endorsing abdominal pain. Physical exam of the abdomen is benign. Troponin unremarkable. Patient not having any chest pain I do not think delta is needed. Chest x-ray was personally reviewed interpreted by al, ED physician. Chest x-ray without pneumonia, effusion, cardiomegaly, pneumothorax. Radiology in agreement. CTA head and neck negative for CVA or significant stenosis. At this point in time, no clear etiology for patient's symptoms however concern is for CVA. Patient will warrant admission for MRI brain. Patient and family updated with all the results. They confirmed understanding. Hospitalist consulted and accepted admission. Impression: 1. Dysarthria with unsteady gait, concern for CVA 2. Chronic transaminitis Lab Data Labs: Laboratory Results - last 24 hr 10/16/24 12:30 WBC 3.9 L RBC 4.69 Hgb 16.1 Hct 45.8 MCV 97.7 H MCH 34.3 H MCHC 35.2 RDW Std Deviation 50.9 H RDW Coeff of Shawn 14.2 Plt Count 130 L MPV 10.5 Immature Gran % (Auto) 0.500 Neut % (Auto) 43.0 L Lymph % (Auto) 37.6 Worth % (Auto) 12.4 H Eos % (Auto) 4.4 Baso % (Auto) 2.1 H Absolute Neuts (auto) 1.7 L Absolute Lymphs (auto) 1.45 Nucleated RBC % 0 PT 12.7 INR 0.9 APTT 22.8 L Sodium 144 Potassium 4.5 Chloride 102 Carbon Dioxide 26.0 Anion Gap 16 H BUN 5 Creatinine 1.11 Estim Creat Clear Calc 93.45 Est GFR (MDRD) Non-Af 76 BUN/Creatinine Ratio 4.8 L Glucose 92 Calcium 8.8 Total Bilirubin 0.50 AST 123 H ALT 105 H Alkaline Phosphatase 41 Troponin T High Sens 7 Total Protein 7.3 Albumin 4.4 Globulin 2.9 Albumin/Globulin Ratio 1.5 Radiography Diagnostic Testing: Clinical Impression(s) from Imaging Studies Head/Neck CTA 10/16/24 12:23 IMPRESSION: Negative CTA of the head and neck with contrast. [facility]-Ray 10/16/24 13:41 IMPRESSION: NO ACUTE FINDINGS. Reading Location: [place] [address] Discharge Plan Triage Chief Complaint: Weakness ED Provider: Alberto Knowles Dx/Rx/DC Orders Prescriptions: No Action divalproex [Depakote ER] 500 mg tablet extended release 24 hr 1,000 mg PO QHS propranolol 20 mg tablet 20 mg PO BID acetaminophen 500 MG tablet 1,000 mg PO Q6H PRN PRN (Reason: Pain) levothyroxine 75 mcg tablet 75 mcg PO DAILY Patient Comments: TAKE 1 TABLET BY MOUTH ONCE DAILY ON AN EMPTY STOMACH FOR THYROID Trintellix 10 mg tablet 10 mg PO DAILY Patient Comments: TAKE 1 TABLET BY MOUTH ONCE DAILY DIRECTED melatonin 10 mg capsule 10 mg PO QHS fexofenadine [Maria L Allergy] 60 mg tablet 60 mg PO Q12H PRN (Reason: allergies) pantoprazole 40 mg Tablet,Delayed Release (Dr/Ec) 40 mg PO BID Qty: 60 2RF tamsulosin 0.4 mg capsule 0.4 mg PO QHS PRN PRN (Reason: 0) trazodone 300 mg tablet 300 mg PO QHS sucralfate 1 gram tablet 1 g PO 4X/DAY lisinopril 20 mg tablet 20 mg PO DAILY folic acid 1 mg tablet 1 mg PO DAILY fenofibrate 160 mg tablet 160 mg PO DAILY Caplyta 21 mg capsule 21 mg PO QHS Primary Care Provider: Rafa Armas Referrals: Rafa Armas MD [Primary Care Provider] - Print Language: Latvian
[2024-10-16 12:41] LABS: Absolute Lymphocyte Count 1.45 X10^3/uL (0.83-4.51); Absolute Neutrophil Count 1.7 X10^3/uL (2.0-7.7); Basophil# 0.08 X10^3/uL; Basophil% 2.1 % (0-1); Eosinophil# 0.17 X10^3/uL; Eosinophils% 4.4 % (0-5); Hematocrit 45.8 % (40-54); Hemoglobin 16.1 g/dL (13.0-16.5); Lymphocyte # 1.45 X10^3/ul (0.83-4.51); Lymphocyte % 37.6 % (19-41); Mean Corp Hgb Conc 35.2 g/dL (32-36); Mean Corpuscular Hgb 34.3 pg (27.0-32.0); Mean Corpuscular Volume 97.7 fL (80-94); Mean Platelet Vol. 10.5 fl (6.2-12.0); Monocyte# 0.48 X10^3/uL; Monocyte% 12.4 % (0-10); NRBC Flagged by Analyzer 0 % (0-5); Neutrophil # 1.66 X10^3/uL (2.7-7.7); Platelet Count 130 K/mm3 (150-450); RBC Distribution Width CV 14.2 % (11.6-14.6); RBC Distribution Width SD 50.9 fl (35.1-43.9); Red Blood Count 4.69 M/mm3 (4.6-6.2); White Blood Count 3.9 K/mm3 (4.4-11.0)
[2024-10-16 12:50] LABS: International Normalized Ratio 0.9; Prothrombin Time (Protime)PT. 12.7 SECONDS (11.7-14.9)
[2024-10-16 12:51] LABS: Partial Thromboplast Time 22.8 Seconds (24.1-36.2)
[2024-10-16 13:09] LABS: ALB/GLOB Ratio 1.5 RATIO (0.9-2.4); AST(SGOT) 123 U/L (<=37); Alanine Aminotransfer ALT/SGPT 105 U/L (<=46); Albumin, Serum 4.4 g/dL (3.5-5.0); Alkaline Phosphatase 41 U/L (40-129); Anion Gap 16 (5-15); BUN 5 mg/dL (4-19); BUN/Creat Ratio 4.8 RATIO (10-20); Calcium,Total 8.8 mg/dL (7.6-11.0); Chloride 102 mmol/L (98-108); Creatinine, Serum 1.11 mg/dL (0.70-1.20); EST Glomerular Filtration Rate 76 (>60); Estimated Creatinine Clearance 93.45 ml/min (50-250); Globulin 2.9 g/dL (2.2-4.2); Glucose 92 mg/dL (70-99); Potassium 4.5 mmol/L (3.3-5.1); Protein, Total 7.3 g/dL (5.9-8.4); Sodium Level 144 mmol/L (133-145)
[2024-10-16 13:10] LABS: Troponin T High Sensitivity 7 ng/L (<=22)
--- NOTE | 2024-10-16 13:41 | RAD_ITS ---
PROCEDURE: CHEST PA AND LATERAL 10/16/2024 REASON FOR EXAM: DYSARTHRIA Confusion. TECHNIQUE: Frontal and lateral views of the chest. COMPARISON: None FINDINGS: Hardware: EKG electrodes are seen. Heart: The heart size is normal. Mediastinum: The mediastinal contour is unremarkable. Lungs: The lungs are clear. Bones: The bones are unremarkable. RAD/Chest PA and Lateral IMPRESSION: NO ACUTE FINDINGS. Reading Location: [facility]-
[2024-10-16] MEDS: 0.9% Normal Saline (1000mL) 1,000 ML 1000 ML IV (13:51)
--- NOTE | 2024-10-16 15:29 | PCM.HP.STD ---
[facility] - General General Date of Admission: 10/16/24 Date of Service: 10/16/24 Chief Complaint: dysarthria. toddsion HPI Narrative SORAYA BOWSER, is a 59 M who presents with dysarthria and intermittent confusion and unsteadiness. Symptoms began on where is noted he is having dysarthria and periods of confusion and has been unsteady. Patient was at work and just had the symptoms and had to go home where he walked. Patient became very short of breath and noted that he was hyperventilating. He is no longer felt short of breath since then. Upon further inquiry, the patient's friend is at bedside and noticed a month ago that he was having issues with regards to confusion dysarthria. Patient also notes that he has been having for sometimes some left-sided weakness. The patient presented to the emergency room and underwent a workup with a head CTA that there was no evidence of any acute stroke or LVO. Though it was remarkable for prominent atrophy and ventricularmegaly. Patient has never had a stroke before. [facility] Medical History Abrasion, left knee, initial encounter Laceration of occipital scalp Syncope and collapse Diarrhea Rectal bleeding Anxiety and depression Uncontrolled hypertension history of shoulder pain History of hemorrhoids Abnormal LFTs Bilateral pulmonary embolism Sepsis GERD (gastroesophageal reflux disease) Bipolar disorder Lung abscess Home Medications ?Medication ?Instructions ?Recorded ?Last Taken ?Type acetaminophen 500 mg tablet 1,000 mg PO Q6H PRN PRN Pain 12/23/17 01/31/18 History divalproex 500 mg tablet,extended 1,000 mg PO QHS seizure 08/14/20 12/25/23 History release 24 hr (Depakote ER) propranolol 20 mg tablet 20 mg PO BID heart/bp 08/14/20 12/26/23 History fexofenadine 60 mg tablet (Maria L 60 mg PO Q12H PRN allergies 12/26/23 Unknown History Allergy) levothyroxine 75 mcg tablet 75 mcg PO DAILY thyroid 12/26/23 12/26/23 History melatonin 10 mg capsule 10 mg PO QHS sleep 12/26/23 12/25/23 History vortioxetine 10 mg tablet 10 mg PO DAILY mood 12/26/23 12/26/23 History (Trintellix) pantoprazole 40 mg tablet,delayed 40 mg PO BID #60 tabs 12/28/23 Unknown Rx release fenofibrate 160 mg tablet 160 mg PO DAILY 10/16/24 Unknown History folic acid 1 mg tablet 1 mg PO DAILY 10/16/24 Unknown History lisinopril 20 mg tablet 20 mg PO DAILY 10/16/24 Unknown History lumateperone 21 mg capsule 21 mg PO QHS 10/16/24 Unknown History (Caplyta) sucralfate 1 gram tablet 1 g PO 4X/DAY 10/16/24 Unknown History tamsulosin 0.4 mg capsule 0.4 mg PO QHS PRN PRN 0 10/16/24 Unknown History trazodone 300 mg tablet 300 mg PO QHS 10/16/24 Unknown History Allergy/AdvReac Type Severity Reaction Status Date / Time No Known Allergies Allergy Verified 10/16/24 11:53 Family History Mother Hypertension Father Cancer unsure type Surgical History History of colonoscopy History of surgery on wrist Social History Smoking Status: Never smoker alcohol intake: current alcohol intake frequency: a few times a week ROS MAYI Narrative Notes that he has urinary urgency and sees urologist for BPH. Does not have urinary incontinence however. All review of systems were negative except as mentioned above in the history of present illness and the other review of systems. Vital Signs Vital Signs Vital Signs: 10/16/24 11:51 10/16/24 12:32 10/16/24 13:52 Temperature 36.8 C Temperature Source Temporal Pulse Rate 75 77 Respiratory Rate 16 16 Respiratory Effort Normal Blood Pressure 145/89 H 113/64 Blood Pressure Mean 107 80 Pulse Ox 95 97 Oxygen Delivery Method Room Air Weight Weight: 121 kg Body Mass Index (BMI) 38.2 Physical Exam Narrative - Physical Exam General: Alert, Oriented x3, Cooperative HEENT: Atraumatic, PERRLA, EOMI, Normocephalic. Bilateral lateral nystagmus. Oral: Moist Mucosa, No Gingival or Mucosal Lesions/ Ulcerations Neck: Supple, No JVD, Negative Carotid Bruits Lungs: Clear to auscultation, Normal air movement Cardiovascular: Regular rate, Normal S1, Normal S2, No murmurs Abdomen: Bowel Sounds Present, Soft, Non Tender, Non-Distended, No Hepato-splenomegaly Extremities: No clubbing, No cyanosis, No edema, Capillary Refill Less than 3 Seconds Skin: No rashes, No breakdown Musculoskeletal: No Tenderness to Palpation of Joints or Extremities Neurological: Cranial nerves II through XII grossly intact. Strength 5-5 in upper and lower extremities bilaterally but does have some subtle ataxia of the left upper and left lower extremity. Sensation grossly intact throughout. Psych/Mental Status: Normal Affect, Appropriate Results Lab / Micro Data Attestation: I reviewed the patient's lab results. 10/16/24 12:30 10/16/24 12:30 Labs: Laboratory Results - last 24 hr 10/16/24 12:30: WBC 3.9 L, RBC 4.69, Hgb 16.1, Hct 45.8, MCV 97.7 H, MCH 34.3 H, MCHC 35.2, RDW Std Deviation 50.9 H, RDW Coeff of Shawn 14.2, Plt Count 130 L, MPV 10.5, Immature Gran % (Auto) 0.500, Neut % (Auto) 43.0 L, Lymph % (Auto) 37.6, App[place] % (Auto) 12.4 H, Eos % (Auto) 4.4, Baso % (Auto) 2.1 H, Absolute Neuts (auto) 1.7 L, Absolute Lymphs (auto) 1.45, Nucleated RBC % 0, PT 12.7, INR 0.9, APTT 22.8 L, Sodium 144, Potassium 4.5, Chloride 102, Carbon Dioxide 26.0, Anion Gap 16 H, BUN 5, Creatinine 1.11, Estim Creat Clear Calc 93.45, Est GFR (MDRD) Non-Af 76, BUN/Creatinine Ratio 4.8 L, Glucose 92, Calcium 8.8, Total Bilirubin 0.50, AST 123 H, ALT 105 H, Alkaline Phosphatase 41, Troponin T High Sens 7, Total Protein 7.3, Albumin 4.4, Globulin 2.9, Albumin/Globulin Ratio 1.5 Imaging Radiology Impression Head/Neck CTA 10/16/24 12:23 IMPRESSION: Negative CTA of the head and neck with contrast. Reading [facility] Chest X-Ray 10/16/24 13:41 IMPRESSION: NO ACUTE FINDINGS. Reading Location: [facility] Assessment & Plan Assessment/Plan (1) Dysarthria: PLAN: Along with confusion. Symptoms most prominent since this past but friend noted that she had noticed some changes in him about a month ago. Etiology include stroke versus NPH versus metabolic. Patient has chronically elevated LFTs. Unclear if patient has underlying liver dysfunction but will check ammonia level. Patient is also on valproic acid and will check a valproic acid level. The evaluation for stroke, will check MRI of the brain and echocardiogram. Start him on aspirin. Consult [facility] teleneurology for further recommendations. Interpretation of the patient's CAT scan as he does have marked atrophy as well as ventriculomegaly. I am unclear if patient has underlying NPH or not but will see what neurology's recommendations are. PLAN: Plan Chronic conditions Bipolar disorder: Continue with valproic acid and vortioxetine BPH: Continue tamsulosin GERD: Continue with PPI and Sucre fate VTE prophylaxis with enoxaparin CODE STATUS: Addressed with the patient. Patient wishes to be full code. Discussed with the patient's friend at bedside. Charges/Coding Visit Charges Inpatient E&M: 05926 Init Hosp L3
--- NOTE | 2024-10-16 16:40 | MRI_ITS ---
PROCEDURE: BRAIN WITHOUT CONTRAST 10/16/2024 REASON FOR EXAM: DYSARTHIA TECHNIQUE: Noncontrast brain MRI. Multiplanar and multisequence images were obtained. FINDINGS: No intracranial mass or hemorrhage. No hydrocephalus. No extra-axial mass or fluid collection. Paranasal sinuses are clear. No pathologic flow voids are identified. No extra-axial masses. There is a mild degree of cerebral atrophy. There is no abnormal diffusion. Coronal T2 weighted images demonstrate no hippocampal asymmetry MRI/Brain without Contrast IMPRESSION: Mild atrophy without acute infarction Reading [facility]
--- NOTE | 2024-10-16 16:40 | ECHOCS_ITS ---
Reason For Study Reason For Study: TIA/CVA Procedure This was a 2D Doppler, Color Flow transthoracic echocardiogram. The study was technically difficult. Contrast injection was performed. Exam performed portable in patient room. Left Ventricle Normal left ventricle. The estimated ejection fraction is 55-60 %. Right Ventricle Normal right ventricle. Normal systolic function. Atria Normal left atrium. Normal right atrium. Bubble contrast study is negative for PFO/ASD. Mitral Valve The mitral valve is structurally normal. No prolapse or stenosis seen. Tricuspid Valve Normal tricuspid valve. Mild tricuspid valve insufficiency. Aortic Valve Trisinus/trileaflet aortic valve. Pulmonic Valve The pulmonic valve is not well visualized. Great Vessels Normal sized aortic root. Pericardium/Pleural No pericardial effusion. Medication Diluted definity 1.5ml given slow IV push to enhance endocardial definition. Performed a rapid injection of agitated mix of 9 cc saline and 1cc air to assess for atrial septal defect. MMode/2D Measurements & Calculations LVIDd: 5.5 cm IVSd: 0.94 cm Ao root diam: 3.9 cm LVIDs: 3.4 cm LVPWd: 1.1 cm RVDd: 4.3 cm FS: 37.1 % LAV(MOD-bp): 61.1 ml LVAd ap4: 37.5 cm2 SV(MOD-sp4): 82.0 ml LAV(MOD-bp) Indexed: 25.9 ml/m2 LVLd ap4: 8.5 cm SI(MOD-sp4): 34.7 ml/m2 LAV(MOD-sp2): 64.9 ml EDV(MOD-sp4): 133.7 ml LAV(MOD-sp4): 55.0 ml EDV(sp4-el): 140.7 ml LVAs ap4: 20.8 cm2 LVLs ap4: 6.8 cm ESV(MOD-sp4): 51.8 ml ESV(sp4-el): 54.4 ml EF(MOD-sp4): 61.3 % EF(sp4-el): 61.4 % SV(sp4-el): 86.4 ml LA A4 area: 19.7 cm2 LA dimension(2D): 4.5 cm RA A4 area: 17.6 cm2 TAPSE: 2.6 cm Time Measurements MV dec time: 0.20 sec Doppler Measurements & Calculations MV E max dean: 68.7 cm/sec Lat Peak E' Dean: 8.8 cm/sec Med Peak E' Dean: 9.2 cm/sec MV A max dean: 72.4 cm/sec E/E' lat: 7.8 E/E' med: 7.4 MV E/A: 0.95 MV V2 max: 87.4 cm/sec MV P1/2t max dean: 79.8 cm/sec Ao V2 max: 152.0 cm/sec MV max P.1 mmHg MV P1/2t: 68.4 msec Ao max P.2 mmHg MV V2 mean: 50.7 cm/sec MV dec slope: 341.6 cm/sec2 Ao V2 mean: 98.6 cm/sec MV mean P.2 mmHg MVA(P1/2t): 3.2 cm2 Ao mean P.6 mmHg MV V2 VTI: 24.7 cm Ao V2 VTI: 29.2 cm LV V1 max: 136.1 cm/sec PA V2 max: 107.9 cm/sec TR max dean: 253.7 cm/sec LV V1 max P.4 mmHg TR max P.7 mmHg ECHO/Echo Complete W/ Contrast Interpretation Summary The estimated ejection fraction is 55-60 %. Normal LV systolic function No significant valvular abnormalites No significant changes from previous echo Ordering Physician: Breezy Asher Referring Physician: Breezy Asher Performed By: Alberto Guidry RCS
[2024-10-16] MEDS: Aspirin 325 MG Tablet PO (17:02)
[2024-10-16 18:07] LABS: Valproic Acid (Depakene) Level 12 ug/mL (50-100)
[2024-10-16] MEDS: Tamsulosin HCl 0.4 MG Capsule PO (20:55)
[2024-10-16] MEDS: Divalproex (ER) 500 MG Tablet 1000 MG PO (20:55)
[2024-10-16] MEDS: traZODone 100 MG Tablet 300 MG PO (20:56)
[2024-10-16] MEDS: Sucralfate 1 GM Tablet PO (20:56)
[2024-10-16] MEDS: Pantoprazole Sodium 40 MG Tablet PO (20:56)
[2024-10-16] MEDS: Propranolol 10 MG Tablet 20 MG PO (20:56)
[2024-10-16] MEDS: MELATONIN 10 MG TABLET PO (20:58)
[2024-10-17 02:04] LABS: Red Blood Cells-Urine 0 SEEN /hpf (0-5); Squamous Epithelial Cells - UA 0 SEEN /hpf (0-5)
[2024-10-17 02:10] LABS: Color, Urine Amber (Yellow); Glucose, Dipstick Normal (Normal); Ketone-Dipstick 15 mg/dl (Negative); Leukocyte Esterase-Dipstick Negative /ul (Negative); Nitrite-Dipstick Negative (Negative); Occult Blood-Urine Negative /ul (Negative); Protein-Dipstick 30 mg/dl (Negative); Urine Clarity Clear (Clear); Urine Urobilinogen 4 mg/dl (Normal)
[2024-10-17 02:52] LABS: Bacteria 1+ /hpf (None Seen); Hyaline Cast 0-5 SEEN /lpf (0-5); Mucous, Urine 1+ /hpf (<or=2+); Urine Bilirubin Dipstick 1 mg/dL (Negative); White Blood Cells 0-5 SEEN /hpf (0-5)
[2024-10-17 03:08] VITALS: BP 151/93; PULSE 87; RESP 18; TEMP 36.5; O2SAT 94
[2024-10-17] MEDS: Sucralfate 1 GM Tablet PO ×3 (06:01→15:27)
[2024-10-17] MEDS: Levothyroxine 75 MCG Tablet PO (06:01)
[2024-10-17] MEDS: Ondansetron 4 MG/2 ML Vial IV (06:01)
[2024-10-17 06:31] LABS: Cholesterol 263 mg/dL (<=200); High Density Lipoprotein 62 mg/dL; Low Density Lipoprotein Calc. 173 mg/dL; Triglycerides 144 mg/dL; Very Low Density Lipoprotein 29 mg/dL (5-40); cholesterol:hdl ratio screen 4.28
[2024-10-17 07:36] VITALS: BP 167/79; PULSE 87; RESP 18; TEMP 36.8; O2SAT 96
[2024-10-17] MEDS: Fenofibrate 145 MG Tablet PO (09:03)
[2024-10-17] MEDS: Propranolol 10 MG Tablet 20 MG PO (09:03)
[2024-10-17] MEDS: Lisinopril 20 MG Tablet PO (09:03)
[2024-10-17] MEDS: Aspirin 81 MG TAB.CHEW PO (09:03)
[2024-10-17] MEDS: Enoxaparin 40 MG/0.4 ML Syringe SC (09:03)
[2024-10-17] MEDS: Folic Acid 1 MG Tablet PO (09:03)
[2024-10-17] MEDS: Pantoprazole Sodium 40 MG Tablet PO (09:03)
[2024-10-17 10:57] VITALS: BP 142/78; PULSE 76; RESP 18; TEMP 36.9; O2SAT 98
--- NOTE | 2024-10-17 11:15 | NEURO.CONS ---
Assessment and Plan: Neuro Assessment/Plan SORAYA BOWSER is a 59 M with a past medical history of HTN, BPD, PE, being evaluated by Teleneurology for dysarthria. MRI brain is negative for stroke. His examination is normal. Episodic dysarthria could be suggestive of neuromuscular junction disorder, ?MG. Although he improves as the day progresses, rather then worsening which is not the typical pattern. In terms of his tremor, suspect medication induced - postural tremor can be seen 2/2 depakote. Could also consider related to lumateperone (as does have resting component as well which could suggest parkinsonism). Diagnosis: Episodic dysarthria Plan: - Check Myasthenia Gravis antibody panel - Follow up with neurology in 4-6 weeks - no further inpatient work up I personally attended this patient and spent a total time of 35 minutes evaluating this patient including clinical assessment, review of chart, medical history imaging, and determining appropriate treatment and workup. HPI Consult Data Date of Consult: 10/17/24 HPI Narrative HPI Narrative: SORAYA BOWSER, is a 59 M who presents with reported dysarthria for the last 1 week. He reports this started last . This happens intermittently and has done so for the last few months. It is worse in the morning and improves throughout the day. He did have some trouble walking last week, but reports this was predominantly due to shortness breath. No blurry vision, double vision, trouble swallowing, ptosis, facial weakness. He thinks he may occasionally have shortness of breath when lying flat. Occasionally will have generalized weakness. He also reports tremor, but has been told this is related to his psychiatric medications. [facility] Medical History Abrasion, left knee, initial encounter Laceration of occipital scalp Syncope and collapse Diarrhea Rectal bleeding Anxiety and depression Uncontrolled hypertension history of shoulder pain History of hemorrhoids Abnormal LFTs Bilateral pulmonary embolism Sepsis GERD (gastroesophageal reflux disease) Bipolar disorder Lung abscess Home Medications ?Medication ?Instructions ?Recorded ?Last Taken ?Type acetaminophen 500 mg tablet 1,000 mg PO Q6H PRN PRN Pain 12/23/17 01/31/18 History divalproex 500 mg tablet,extended 1,000 mg PO QHS seizure 08/14/20 12/25/23 History release 24 hr (Depakote ER) propranolol 20 mg tablet 20 mg PO BID heart/bp 08/14/20 12/26/23 History fexofenadine 60 mg tablet (Maria L 60 mg PO Q12H PRN allergies 12/26/23 Unknown History Allergy) levothyroxine 75 mcg tablet 75 mcg PO DAILY thyroid 12/26/23 12/26/23 History melatonin 10 mg capsule 10 mg PO QHS sleep 12/26/23 12/25/23 History vortioxetine 10 mg tablet 10 mg PO DAILY mood 12/26/23 12/26/23 History (Trintellix) pantoprazole 40 mg tablet,delayed 40 mg PO BID #60 tabs 12/28/23 Unknown Rx release fenofibrate 160 mg tablet 160 mg PO DAILY 10/16/24 Unknown History folic acid 1 mg tablet 1 mg PO DAILY 10/16/24 Unknown History lisinopril 20 mg tablet 20 mg PO DAILY 10/16/24 Unknown History lumateperone 21 mg capsule 21 mg PO QHS 10/16/24 Unknown History (Caplyta) sucralfate 1 gram tablet 1 g PO 4X/DAY 10/16/24 Unknown History tamsulosin 0.4 mg capsule 0.4 mg PO QHS URINARY STREAM 10/16/24 Unknown History trazodone 300 mg tablet 300 mg PO QHS 10/16/24 Unknown History Allergy/AdvReac Type Severity Reaction Status Date / Time No Known Allergies Allergy Verified 10/16/24 11:53 Family History Mother Hypertension Father Cancer unsure type Surgical History History of colonoscopy History of surgery on wrist Social History Smoking Status: Never smoker alcohol intake: current alcohol intake frequency: a few times a week Vital Signs Vital Signs Vital Signs: 10/16/24 11:51 10/16/24 12:32 10/16/24 13:52 Temperature 98.3 F Temperature Source Temporal Pulse Rate 75 77 Respiratory Rate 16 16 Respiratory Effort Normal Respiratory Depth Respiratory Pattern Blood Pressure 145/89 H 113/64 Blood Pressure Mean 107 80 Blood Pressure Source Blood Pressure Position Blood Pressure Location Pulse Ox 95 97 Oxygen Delivery Method Room Air 10/16/24 15:00 10/16/24 15:31 10/16/24 16:18 Temperature 98.3 F Temperature Source Pulse Rate 69 77 Respiratory Rate 14 16 Respiratory Effort Normal Non-Labored Respiratory Depth Normal Respiratory Pattern Normal Blood Pressure 113/64 Blood Pressure Mean 80 Blood Pressure Source Blood Pressure Position Blood Pressure Location Pulse Ox 95 97 Oxygen Delivery Method Room Air Room Air 10/16/24 16:23 10/16/24 16:30 10/16/24 16:40 Temperature 98.7 F 98.7 F Temperature Source Temporal Oral Pulse Rate 72 72 Respiratory Rate 18 14 Respiratory Effort Normal Non-Labored Respiratory Depth Normal Respiratory Pattern Normal Blood Pressure 151/80 H 151/80 H Blood Pressure Mean 103 103 Blood Pressure Source Monitor Monitor Blood Pressure Position Semi-Fowlers Blood Pressure Location Right Arm Pulse Ox 97 97 Oxygen Delivery Method Room Air Room Air Room Air 10/16/24 18:02 10/16/24 20:51 10/16/24 21:29 Temperature 98.0 F 97.8 F Temperature Source Oral Temporal Pulse Rate 83 84 Respiratory Rate 16 18 Respiratory Effort Respiratory Depth Respiratory Pattern Blood Pressure 161/77 H 162/83 H Blood Pressure Mean 105 109 Blood Pressure Source Monitor Monitor Blood Pressure Position Sitting Semi-Fowlers Blood Pressure Location Right Arm Right Arm Pulse Ox 94 93 94 Oxygen Delivery Method Room Air Room Air Room Air 10/16/24 22:00 10/17/24 03:08 10/17/24 07:36 Temperature 97.7 F L 98.2 F Temperature Source Temporal Temporal Pulse Rate 87 87 Respiratory Rate 18 18 Respiratory Effort Normal Non-Labored Respiratory Depth Normal Respiratory Pattern Normal Blood Pressure 151/93 H 167/79 H Blood Pressure Mean 112 108 Blood Pressure Source Monitor Monitor Blood Pressure Position Semi-Fowlers Blood Pressure Location Right Arm Pulse Ox 94 96 Oxygen Delivery Method Room Air Room Air Room Air 10/17/24 07:39 10/17/24 10:00 10/17/24 10:57 Temperature 98.5 F Temperature Source Temporal Pulse Rate 76 Respiratory Rate 18 Respiratory Effort Normal Non-Labored Respiratory Depth Normal Respiratory Pattern Normal Blood Pressure 142/78 H Blood Pressure Mean 99 Blood Pressure Source Monitor Blood Pressure Position Blood Pressure Location Pulse Ox 98 Oxygen Delivery Method Room Air Room Air Room Air Weight Weight: 121.3 kg Body Mass Index (BMI) 38.3 EEG Results Procedure Details EEG Procedure Details: SORAYA BOWSER is a 59 year old M with a past medical history of , who presents for evaluation of Electroencephalogram on DATE at TIME Physical Exam Neuro oriented x3, CN's II-XII intact bilaterally, moves all extremities, no focal motor deficits and no sensory deficits noted Neuro Narrative: CN intact - no ptosis with sustained upgaze. Face strength intact to cheek puff and forced eye closure. Motor - bilateral postrual tremor - rapid and low frequency. Also has R>L rest tremor which becomes apparent when distracted. Sensorium / Orientation: awake, alert, oriented to person, oriented to place and oriented to time Coordination / Balance: [id number] test normal and [id number] test normal Speech: speech normal Sensory Exam: extremities light-touch: normal Motor Exam: strength 5/5 throughout, no pronator drift and tremor Type: Positive for resting and postural Positive for bilateral upper extremity Lab / Micro Data 10/16/24 12:30 10/16/24 12:30 Labs: Laboratory Results - last 24 hr 10/16/24 12:30: WBC 3.9 L, RBC 4.69, Hgb 16.1, Hct 45.8, MCV 97.7 H, MCH 34.3 H, MCHC 35.2, RDW Std Deviation 50.9 H, RDW Coeff of Shawn 14.2, Plt Count 130 L, MPV 10.5, Immature Gran % (Auto) 0.500, Neut % (Auto) 43.0 L, Lymph % (Auto) 37.6, [place] % (Auto) 12.4 H, Eos % (Auto) 4.4, Baso % (Auto) 2.1 H, Absolute Neuts (auto) 1.7 L, Absolute Lymphs (auto) 1.45, Nucleated RBC % 0, PT 12.7, INR 0.9, APTT 22.8 L, Sodium 144, Potassium 4.5, Chloride 102, Carbon Dioxide 26.0, Anion Gap 16 H, BUN 5, Creatinine 1.11, Estim Creat Clear Calc 93.45, Est GFR (MDRD) Non-Af 76, BUN/Creatinine Ratio 4.8 L, Glucose 92, Calcium 8.8, Total Bilirubin 0.50, AST 123 H, ALT 105 H, Alkaline Phosphatase 41, Troponin T High Sens 7, Total Protein 7.3, Albumin 4.4, Globulin 2.9, Albumin/Globulin Ratio 1.5 10/16/24 17:20: Ammonia 17.0, Valproic Acid 12 L 10/17/24 01:55: Urine Color Elizabeth, Urine Clarity Clear, Urine pH 6.0, Ur Specific Carbon 1.020, Urine Protein 30 H, Urine Glucose (UA) Normal, Urine Ketones 15 H, Urine Occult Blood Negative, Urine Nitrite Negative, Urine Bilirubin 1 H, Urine Urobilinogen 4 H, Ur Leukocyte Esterase Negative, Urine RBC 0 SEEN, Urine WBC 0-5 SEEN, Ur Squamous Epith Cells 0 SEEN, Urine Bacteria 1+, Hyaline Casts 0-5 SEEN, Urine Mucus 1+ 10/17/24 05:41: Triglycerides 144, Cholesterol 263 H, LDL Cholesterol, Calc 173, VLDL Cholesterol 29, HDL Cholesterol 62, Cholesterol/HDL Ratio 4.28 Imaging Radiology Impression Head/Neck CTA 10/16/24 12:23 IMPRESSION: Negative CTA of the head and neck with contrast. [facility] 10/16/24 13:41 IMPRESSION: NO ACUTE FINDINGS. Reading Location: [facility] Brain MRI 10/16/24 16:40 IMPRESSION: Mild atrophy without acute infarction Reading [facility] Active Medications Active Medications Active Medications: Current Medications Generic Name Dose Route Start Last Admin Trade Name Luis Angelq PRN Reason Stop Dose Admin Acetaminophen 1,000 mg 10/16/24 16:40 Acetaminophen 500 Mg Tablet PO Q6H PRN PRN Pain 1-10 Aspirin 81 mg 10/17/24 08:00 10/17/24 09:03 Aspirin 81 Mg Tab.Chew PO 81 mg BREAKFAST REINALDO Administration Clarify Med Order 0 each 10/16/24 19:00 10/16/24 17:42 Clarify Order NOTE Not Given CLARIFY REINALDO Divalproex Sodium 1,000 mg 10/16/24 22:00 10/16/24 20:55 Divalproex (Er) 500 Mg Tablet PO 1,000 mg QHS REINALDO Administration Enoxaparin Sodium 40 mg 10/17/24 10:00 10/17/24 09:03 Enoxaparin 40 Mg/0.4 Ml Syringe SC 40 mg DAILY REINALDO Administration Fenofibrate 145 mg 10/17/24 08:00 10/17/24 09:03 Fenofibrate 145 Mg Tablet PO 145 mg DAILYCM REINALDO Administration Folic Acid 1 mg 10/17/24 08:00 10/17/24 09:03 Folic Acid 1 Mg Tablet PO 1 mg BREAKFAST REINALDO Administration Hydralazine HCl 5 mg 10/16/24 16:40 Hydralazine 20 Mg/Ml Vial IV 10/17/24 16:40 Q30M PRN maintain BP parameters with HR <60 Labetalol HCl 10 - 20 mg 10/16/24 16:40 Labetalol 20 Mg/4 Ml Vial IV 10/17/24 16:40 Q10M PRN PRN maintain BP parameters with HR >/=60 Levothyroxine Sodium 75 mcg 10/17/24 06:00 10/17/24 06:01 Levothyroxine 75 Mcg Tablet PO 75 mcg DAILY@0600 [facility] Administration Lisinopril 20 mg 10/17/24 10:00 10/17/24 09:03 Lisinopril 20 Mg Tablet PO 20 mg DAILY REINALDO Administration Protocol Loratadine 10 mg 10/16/24 16:57 Loratadine 10 Mg Tablet PO DAILY PRN allergies Melatonin 10 mg 10/16/24 22:00 10/16/24 20:58 Melatonin 10 Mg Tablet PO 10 mg QHS REINALDO Administration Non-Formulary Medication 21 mg 10/16/24 22:00 Lumateperone [Caplyta] PO QHS REINALDO Non-Formulary Medication 10 mg 10/17/24 10:00 Vortioxetine [Trintellix] PO DAILY [facility] Ondansetron HCl 4 mg 10/16/24 16:40 10/17/24 06:01 Ondansetron 4 Mg/2 Ml Vial IV 4 mg Q8H PRN PRN Administration NAUSEA/VOMITING Pantoprazole Sodium 40 mg 10/16/24 22:00 10/17/24 09:03 Pantoprazole Sodium 40 Mg Tablet PO 40 mg BID REINALDO Administration Propranolol HCl 20 mg 10/16/24 22:00 10/17/24 09:03 Propranolol 10 Mg Tablet PO 20 mg BID [facility] Administration Sucralfate 1 gm 10/16/24 22:00 10/17/24 10:59 Sucralfate 1 Gm Tablet PO 1 gm 1HR_ACHS REINALDO Administration Tamsulosin HCl 0.4 mg 10/16/24 22:00 10/16/24 20:55 Tamsulosin Hcl 0.4 Mg Capsule PO 0.4 mg QHS REINALDO Administration Trazodone HCl 300 mg 10/16/24 22:00 10/16/24 20:56 Trazodone 100 Mg Tablet PO 300 mg QHS REINALDO Administration NIHSS NIHSS Nursing Documentation NIHSS Nursing Documentation: NIHSS: Ischemic Stroke/TIA Start: 10/16/24 16:40 Text: For PCU Patients: NIH and Neuro Check every 4 Status: Complete hours, PRN and with change in RN caregiver. Freq: [id number] Protocol: Activity Type Activity Date Activity User E-sign Co-sign Detail Recorded Client Recorded Date Recorded By Document 10/16/24 20:51 MB [id number] 10/16/24 20:51 MB 10/16/24 20:51 NIH Stroke Scale [NIHSS] A score of 0 is normal or asymptomatic . Total possible score is 42. Inpatient: RN or Physician to activate a stroke alert for onset of new stroke symptoms or with NIHSS increase >/= 3 points. Following change in neurological status, NIHSS will be performed per physician order or more frequently PRN. -1a. Level of Consciousness 0 - Alert; keenly responsive -1b. LOC Questions 0 - Answers BOTH questions correctly -1c. LOC Commands 0 - Performs BOTH tasks correctly -2. Best Gaze 0 - Normal -3. Visual 0 - No visual loss -4. Facial Palsy 0 - Normal symmetrical movements -5a. Left Arm 0 - No drift; arm holds 90 ( or 45) degrees for full 10 seconds -5b. Right Arm 0 - No drift; arm holds 90 ( or 45) degrees for full 10 seconds -6a. Left Leg 0 - No drift; leg holds 30- degree position for full 5 seconds -6b. Right Leg 0 - No drift; leg holds 30- degree position for full 5 seconds -7. Limb Ataxia 0 - Absent -8. Sensory 0 - Normal; no sensory loss -9. Best Language 0 - No aphasia; normal -10. Dysarthria 0 - Normal -11. Extinction and Inattention 0 - No abnormality -Total 0 Query Text:A score of 0 is normal or asymptomatic. Total possible score is 42 . ED: Notify Physician for NIHSS increase by > / = 3 points. Inpatient: RN or Physician to activate a stroke alert for NIHSS increase of > / = 3 points. Coma Scale [Assess] -Eye Opening Spontaneous -Motor Obeys Commands -Verbal Oriented [Total] -Coma Scale Total 15
--- NOTE | 2024-10-17 12:01 | PN.HOSP_ITS ---
Reason for Visit Reason for Visit: Diagnoses Dysarthria and anarthria (10/16/24) Subjective Subjective Patient is a 59-year-old gentleman admitted with dysarthria and intermittent confusion and unsteadiness. Initial workup including CT and CTA was negative for acute CVA or large vessel occlusion. Patient admitted to monitored bed for subsequent evaluation and management Objective Data Objective Data Vital Signs: Vital Signs Temp Pulse Resp BP Pulse Ox O2 Del Method 98.5 F 76 18 142/78 H 98 Room Air 10/17/24 10:57 10/17/24 10:57 10/17/24 10:57 10/17/24 10:57 10/17/24 10:57 10/17/24 10:57 Oxygen Delivery Method Room Air Weight: 121.3 kg Body Mass Index (BMI) 38.3 Intake & Output: Intake and Output for Last 24 Hours 10/15/24 10/16/24 10/17/24 23:59 23:59 23:59 Intake Total 1000 / 1000 Output Total 0 / 0 Balance 1000 / 1000 0 / 0 Lab / Micro Data 10/16/24 12:30 10/16/24 12:30 Labs: Laboratory Results - last 24 hr 10/16/24 12:30: WBC 3.9 L, RBC 4.69, Hgb 16.1, Hct 45.8, MCV 97.7 H, MCH 34.3 H, MCHC 35.2, RDW Std Deviation 50.9 H, RDW Coeff of Shawn 14.2, Plt Count 130 L, MPV 10.5, Immature Gran % (Auto) 0.500, Neut % (Auto) 43.0 L, Lymph % (Auto) 37.6, M gigi % (Auto) 12.4 H, Eos % (Auto) 4.4, Baso % (Auto) 2.1 H, Absolute Neuts (auto) 1.7 L, Absolute Lymphs (auto) 1.45, Nucleated RBC % 0, PT 12.7, INR 0.9, APTT 22.8 L, Sodium 144, Potassium 4.5, Chloride 102, Carbon Dioxide 26.0, Anion Gap 16 H, BUN 5, Creatinine 1.11, Estim Creat Clear Calc 93.45, Est GFR (MDRD) Non-Af 76, BUN/Creatinine Ratio 4.8 L, Glucose 92, Calcium 8.8, Total Bilirubin 0.50, AST 123 H, ALT 105 H, Alkaline Phosphatase 41, Troponin T High Sens 7, Total Protein 7.3, Albumin 4.4, Globulin 2.9, Albumin/Globulin Ratio 1.5 10/16/24 17:20: Ammonia 17.0, Valproic Acid 12 L 10/17/24 01:55: Urine Color Elizabeth, Urine Clarity Clear, Urine pH 6.0, Ur Specific Morgan 1.020, Urine Protein 30 H, Urine Glucose (UA) Normal, Urine Ketones 15 H, Urine Occult Blood Negative, Urine Nitrite Negative, Urine Bilirubin 1 H, Urine Urobilinogen 4 H, Ur Leukocyte Esterase Negative, Urine RBC 0 SEEN, Urine WBC 0-5 SEEN, Ur Squamous Epith Cells 0 SEEN, Urine Bacteria 1+, Hyaline Casts 0-5 SEEN, Urine Mucus 1+ 10/17/24 05:41: Triglycerides 144, Cholesterol 263 H, LDL Cholesterol, Calc 173, VLDL Cholesterol 29, HDL Cholesterol 62, Cholesterol/HDL Ratio 4.28 Radiography Diagnostic Testing: Radiology Impression Head/Neck CTA 10/16/24 12:23 IMPRESSION: Negative CTA of the head and neck with contrast. [facility] 10/16/24 13:41 IMPRESSION: NO ACUTE FINDINGS. Reading Location: [facility] Brain MRI 10/16/24 16:40 IMPRESSION: Mild atrophy without acute infarction Reading Location: [facility] Physical Exam Narrative GENERAL: cooperative HEENT: Atraumatic; normocephalic EYES; Anicteric, Normal Conjunctiva NECK; supple, normal thyroid, RESPIRATORY: Diminished to auscultation CARDIOVASCULAR: Regular S1 S2, GI: soft, normoactive bowel sounds, : No Renal angle tenderness; EXTREMITIES: No edema, no clubbing, MUSCULOSKELETAL: no muscle wasting NEURO: Awake; no lateralizing signs. SKIN: No Rash PSYCH; Flat affect Assessment & Plan Assessment/Plan (1) Dysarthria: PLAN: Plan Patient is a 59-year-old gentleman admitted with dysarthria and intermittent confusion and unsteadiness. Initial workup including CT and CTA was negative for acute CVA or large vessel occlusion. Patient admitted to monitored bed for subsequent evaluation and management 1. Suspected TIA ? Patient presented with dysarthria intermittent confusion and unsteadiness. Admitted to monitored bed where patient is currently undergoing evaluation for possible CVA. As part of patient's management patient was placed on every 4 neurochecks 2D echo and MRI as well as [facility] teleneuro consulted 2. Class II obesity with BMI of 38.4 ? Complicating care weight loss advised 3. Bipolar disorder ? Continue with patient home meds 4. BPH with lower urinary obstructive symptoms - Patient treated with tamsulosin 5. GERD ? Patient is on PPI and subcrepitant continue 6. Hypertension ? Blood pressure controlled, home medications continued with dose adjustment as needed 7. Dyslipidemia ? Patient is on fenofibrate did did continue. Patient total cholesterol was 263 and LDL 173 subsequently added statin therapy 8. Hypothyroidism ? Patient is on levothyroxine home dose continued 9. DVT prophylaxis ? On enoxaparin Charges/Coding Visit Charges Inpatient E&M: 76516 Subs Hosp L2 NIHSS NIHSS Nursing Documentation NIHSS Nursing Documentation: NIHSS: Ischemic Stroke/TIA Start: 10/16/24 16:40 Text: For PCU Patients: NIH and Neuro Check every 4 Status: Complete hours, PRN and with change in RN caregiver. Freq: [id number] Protocol: Activity Type Activity Date Activity User E-sign Co-sign Detail Recorded Client Recorded Date Recorded By Document 10/16/24 20:51 MB [id number] 10/16/24 20:51 MB 10/16/24 20:51 NIH Stroke Scale [NIHSS] A score of 0 is normal or asymptomatic . Total possible score is 42. Inpatient: RN or Physician to activate a stroke alert for onset of new stroke symptoms or with NIHSS increase >/= 3 points. Following change in neurological status, NIHSS will be performed per physician order or more frequently PRN. -1a. Level of Consciousness 0 - Alert; keenly responsive -1b. LOC Questions 0 - Answers BOTH questions correctly -1c. LOC Commands 0 - Performs BOTH tasks correctly -2. Best Gaze 0 - Normal -3. Visual 0 - No visual loss -4. Facial Palsy 0 - Normal symmetrical movements -5a. Left Arm 0 - No drift; arm holds 90 ( or 45) degrees for full 10 seconds -5b. Right Arm 0 - No drift; arm holds 90 ( or 45) degrees for full 10 seconds -6a. Left Leg 0 - No drift; leg holds 30- degree position for full 5 seconds -6b. Right Leg 0 - No drift; leg holds 30- degree position for full 5 seconds -7. Limb Ataxia 0 - Absent -8. Sensory 0 - Normal; no sensory loss -9. Best Language 0 - No aphasia; normal -10. Dysarthria 0 - Normal -11. Extinction and Inattention 0 - No abnormality -Total 0 Query Text:A score of 0 is normal or asymptomatic. Total possible score is 42 . ED: Notify Physician for NIHSS increase by > / = 3 points. Inpatient: RN or Physician to activate a stroke alert for NIHSS increase of > / = 3 points. Coma Scale [Assess] -Eye Opening Spontaneous -Motor Obeys Commands -Verbal Oriented [Total] -Coma Scale Total 15
--- NOTE | 2024-10-17 13:00 | CASEMGMT ---
RN?CM?RETAIL SERVICES PROFESSIONAL?CM?to room to meet with patient for initial transition planning/care coordination?assessment.?RN?CM?introduced self and role at [facility].? Pt voices understanding and consents to?assessment?at this time.? Pt resting in bed in no distress at this time.?Pt's friend, Maria Del Rosario, is @ bedside and pt agreeable to her being present during assessment. Pt is A/O at this time and answers all questions appropriately.?? Care providers, pharmacy, and demographics verified/updated at this time. PCP: Dr Armas Specialists: TIFFANY Gupta, @ psychiatrist's office in [place] Preferred Pharmacy: [facility] Insurance: [employer] Dual Prescription Benefit:?yes Living Will/HPOA:?Pt does not currently have LW/HCPOA and declines info at this time, stating he has the paperwork @ home, he just has not completed it & does not need any assistance w/completing these while @ [facility]. Pt made aware that he can contact as an out-pt and make appt in the future if he decides he would like to talk with someone about this or would like to utilize [facility] social work for advanced directive completion. LNOK: Pt has 2 sons. Friend, Maria Del Rosario, is only contact listed & pt is aware. Living Arrangements: Lives alone in ground-floor apt w/no steps to enter. Independent. Works part-time @ [employer]. Transportation:?Pt does not drive. Friend, Maria Del Rosario, takes pt to appt's and can take pt home @ [place]. DME: ? Denies using any DME and denies needs.? HHC/SNF: No hx. Pt wishes to return home and states has no concerns with going home at time of discharge.? ?Per PT/OT evals, pt ambulated 250 ft independently, no additional therapy recommended. Pt declined ST eval. PLAN:??Home Damion BSN?RN?CM
[2024-10-17 14:38] VITALS: BP 144/76; PULSE 71; RESP 18; TEMP 37; O2SAT 94
--- NOTE | 2024-10-17 14:52 | DS.PCM_ITS ---
Providers Date of Admission: 10/16/24 Date of Discharge: 10/17/24 Primary Care Physician: Dr. Rafa Armas MD Consultations 10/16/24 16:40 Consult: Tele-Neurology Routine Consulting Provider: [facility] Reason for Consult: Acute Ischemic Stroke/TIA EMERGENT Consult: No MD Notified: Yes Date Notified: 10/16/24 Time Notified: 17:02 Method of Notification: Answering Service Nursing Unit Staff Notify [facility] of Tele-Neurology Consult: Yes Reason For Visit: DYSARTHRIA, UNSTEADY GAIT, RULE OUT CVA Diagnosis Discharge Diagnosis (1) Dysarthria: Status: Acute Code(s): R47.1 - Dysarthria and anarthria Plan Patient is a 59-year-old gentleman admitted with dysarthria and intermittent confusion and unsteadiness. Initial workup including CT and CTA was negative for acute CVA or large vessel occlusion. Patient admitted to monitored bed for subsequent evaluation and management 1. Suspected TIA ? Patient presented with dysarthria intermittent confusion and unsteadiness. Admitted to monitored bed where patient is currently undergoing evaluation for possible CVA. As part of patient's management patient was placed on every 4 neurochecks [facility]. [facility] obtained did show The estimated ejection fraction is 55-60 %. Normal LV systolic function No significant valvular abnormalites No significant changes from previous echo 10/17/2024; [facility] of episodic dysarthria was made recommended to obtain myasthenia gravis antibody panel and follow-up with neurology in 4 to 6 weeks. 2. Class II obesity with BMI of 38.4 ? Complicating care weight loss advised 3. Bipolar disorder ? Continue with patient home meds 4. BPH with lower urinary obstructive symptoms - Patient treated with tamsulosin 5. GERD ? Patient is on PPI and subcrepitant continue 6. Hypertension ? Blood pressure controlled, home medications continued with dose adjustment as needed 7. Dyslipidemia ? Patient is on fenofibrate did did continue. Patient total cholesterol was 263 and LDL 173 subsequently added statin therapy 8. Hypothyroidism ? Patient is on levothyroxine home dose continued 9. DVT prophylaxis ? On enoxaparin Medications at Discharge Home Medications acetaminophen 500 mg tablet 1,000 mg PO Q6H PRN PRN Pain 12/23/17 divalproex 500 mg tablet,extended release 24 hr (Depakote ER) 1,000 mg PO QHS seizure 08/14/20 propranolol 20 mg tablet 20 mg PO BID heart/bp 08/14/20 fexofenadine 60 mg tablet (Maria L Allergy) 60 mg PO Q12H PRN allergies 12/26/23 levothyroxine 75 mcg tablet 75 mcg PO DAILY thyroid 12/26/23 melatonin 10 mg capsule 10 mg PO QHS sleep 12/26/23 vortioxetine 10 mg tablet (Trintellix) 10 mg PO DAILY mood 12/26/23 pantoprazole 40 mg tablet,delayed release 40 mg PO BID #60 tabs 12/28/23 fenofibrate 160 mg tablet 160 mg PO DAILY 10/16/24 folic acid 1 mg tablet 1 mg PO DAILY 10/16/24 lisinopril 20 mg tablet 20 mg PO DAILY 10/16/24 lumateperone 21 mg capsule (Caplyta) 21 mg PO QHS 10/16/24 sucralfate 1 gram tablet 1 g PO 4X/DAY 10/16/24 tamsulosin 0.4 mg capsule 0.4 mg PO QHS URINARY STREAM 10/16/24 trazodone 300 mg tablet 300 mg PO QHS 10/16/24 atorvastatin 40 mg tablet (Lipitor) 40 mg PO QHS #90 tabs 10/17/24 Hospital Course Summary of Care Provided Minutes Spent on Discharge: 40 Physical Exam Narrative GENERAL: cooperative HEENT: Atraumatic; normocephalic EYES; Anicteric, Normal Conjunctiva NECK; supple, normal thyroid, RESPIRATORY: Diminished to auscultation CARDIOVASCULAR: Regular S1 S2, GI: soft, normoactive bowel sounds, : No Renal angle tenderness; EXTREMITIES: No edema, no clubbing, MUSCULOSKELETAL: no muscle wasting NEURO: Awake; no lateralizing signs. SKIN: No Rash PSYCH; Flat affect Weight / BMI Weight Weight: 121.3 kg Body Mass Index (BMI) 38.3 ABG / Lab / Microbiology Data 10/16/24 12:30 10/16/24 12:30 Laboratory: Laboratory Results - last 24 hr 10/16/24 17:20: Ammonia 17.0, Valproic Acid 12 L 10/17/24 01:55: Urine Color [place], Urine Clarity Clear, Urine pH 6.0, Ur Specific [place] 1.020, Urine Protein 30 H, Urine Glucose (UA) Normal, Urine Ketones 15 H, Urine Occult Blood Negative, Urine Nitrite Negative, Urine Bilirubin 1 H, Urine Urobilinogen 4 H, Ur Leukocyte Esterase Negative, Urine RBC 0 SEEN, Urine WBC 0-5 SEEN, Ur Squamous Epith Cells 0 SEEN, Urine Bacteria 1+, Hyaline Casts 0-5 SEEN, Urine Mucus 1+ 10/17/24 05:41: Triglycerides 144, Cholesterol 263 H, LDL Cholesterol, Calc 173, VLDL Cholesterol 29, HDL Cholesterol 62, Cholesterol/HDL Ratio 4.28 Radiography Diagnostic Testing: Radiology Impression Brain MRI 10/16/24 16:40 IMPRESSION: Mild atrophy without acute infarction Reading Location: [facility] Echocardiogram 10/16/24 16:40 Interpretation Summary The estimated ejection fraction is 55-60 %. Normal LV systolic function No significant valvular abnormalites No significant changes from previous echo Ordering Physician: Breezy Asher Referring Physician: Breezy Asher Performed By: Alberto Guidry [facility] D/C Instructions Discharge Diet: Low fat / Low cholesterol Discharge Activity: Return to Normal Activity Call your doctor if you observe: Fever of 101 or Higher, Shortness of breath, Fainting spells and Chest pain DC O2, CPAP, BIPAP Needs Home O2 Discharge instructions: No DC home with Oxygen: No Meaningful Use Info Meaningful Use Meaningful Use Diagnoses (Choose all that apply): None applicable Ischemic Stroke Statin Dosing Therapy Reference: STATIN DOSE THERAPY REFERENCE: * Patients > 75 years receive moderate or high dose statin therapy. * Patients 75 years or YOUNGER should receive HIGH intensity statin dose unless contraindicated. You will be required to document reason for non-treatment if statin daily dose does not meet guidelines. HIGH DOSE STATIN THERAPY DAILY Atorvastatin > than or = to 40 mg Rosuvastatin > than or = to 20 mg Amlodipine + Atorvastatin > than or = to 2.5/40 mg Ezetimibe + Simvastatin 10/80 mg Simvastatin 80mg Discharge Plan Admission Admit Date/Time: 10/16/24 15:21 Attending Provider: Kevin Mandujano Primary Care Provider: Rafa Armas Consulting Providers: Skyler Pearl; Sandra Elias; Yamini Patterson; Anita Schumacher; Sheila Parrish; Mk Solo; Michelle Benz; Candelario Ram; Bruce Almeida; Ranulfo Bull; Dominga Aguilera; Rosas Somers; Mini Dejesus; Josefa Candelaria; Sharif Pineda; Tristan Yoo; Astrid Kunz; Danny Penny; Silvina Delatorre; Alisia Jovel; Breezy Asher Discharge Orders/Prescriptions Prescriptions: New atorvastatin [Lipitor] 40 mg tablet 40 mg PO QHS Qty: 90 0RF Continued divalproex [Depakote ER] 500 mg tablet extended release 24 hr 1,000 mg PO QHS propranolol 20 mg tablet 20 mg PO BID acetaminophen 500 MG tablet 1,000 mg PO Q6H PRN PRN (Reason: Pain) levothyroxine 75 mcg tablet 75 mcg PO DAILY Patient Comments: TAKE 1 TABLET BY MOUTH ONCE DAILY ON AN EMPTY STOMACH FOR THYROID Trintellix 10 mg tablet 10 mg PO DAILY Patient Comments: TAKE 1 TABLET BY MOUTH ONCE DAILY DIRECTED melatonin 10 mg capsule 10 mg PO QHS fexofenadine [Maria L Allergy] 60 mg tablet 60 mg PO Q12H PRN (Reason: allergies) pantoprazole 40 mg Tablet,Delayed Release (Dr/Ec) 40 mg PO BID Qty: 60 2RF tamsulosin 0.4 mg capsule 0.4 mg PO QHS trazodone 300 mg tablet 300 mg PO QHS sucralfate 1 gram tablet 1 g PO 4X/DAY lisinopril 20 mg tablet 20 mg PO DAILY folic acid 1 mg tablet 1 mg PO DAILY fenofibrate 160 mg tablet 160 mg PO DAILY Caplyta 21 mg capsule 21 mg PO QHS Other Ambulatory Orders: Polysomnography (Routine) Facility: [facility] - Location: Sleep Lab Ordered By: Dr. Kevin Mandujano Referrals / Follow Up: Sheila Parrish MD [Med Staff - Contracted] - Within 1 Month (For follow-up for episodic dysarthria) Rafa Armas MD [Primary Care Provider] - Within 2 Weeks (To be referred for outpatient sleep study) Disposition Disposition (needs filled in before D/C Order can be placed): Home, Self Care Charges/Coding Visit Charges Inpatient E&M: 40469 Disch Hosp >30min
[2024-10-17 15:01] VITALS: BP 144/76; PULSE 71; RESP 18; TEMP 37; O2SAT 94
--- NOTE | 2024-10-17 15:11 | CASEMGMT ---
SW did not complete a PHQ9 as patient did not have a Stroke or TIA per Neurology. Anita Brown COMMUNICATION CLERK RITO
--- NOTE | 2024-10-17 16:19 | PHA.DC.MC.R ---
Pharmacy [facility] Counseling Pharmacy Service has performed discharge medication reconciliation and counseling for this patient. 1. ATORVASTATIN 40MG PO QHS The patient's discharge medication list was reviewed for discrepancies and discrepancies were resolved. The patient was counseled on the following discharge medications and changes in medications for homegoing were reviewed. The Reason for Use, instructions for use, and potential side effects were reviewed for all new medications. The patient's questions regarding all of their medications were answered. The patient was able to verbally demonstrate an understanding of their discharge medications. Medications at Discharge Home Medications acetaminophen 500 mg tablet 1,000 mg PO Q6H PRN PRN Pain 12/23/17 divalproex 500 mg tablet,extended release 24 hr (Depakote ER) 1,000 mg PO QHS seizure 08/14/20 propranolol 20 mg tablet 20 mg PO BID heart/bp 08/14/20 fexofenadine 60 mg tablet (Maria L Allergy) 60 mg PO Q12H PRN allergies 12/26/23 levothyroxine 75 mcg tablet 75 mcg PO DAILY thyroid 12/26/23 melatonin 10 mg capsule 10 mg PO QHS sleep 12/26/23 vortioxetine 10 mg tablet (Trintellix) 10 mg PO DAILY mood 12/26/23 pantoprazole 40 mg tablet,delayed release 40 mg PO BID #60 tabs 12/28/23 fenofibrate 160 mg tablet 160 mg PO DAILY 10/16/24 folic acid 1 mg tablet 1 mg PO DAILY 10/16/24 lisinopril 20 mg tablet 20 mg PO DAILY 10/16/24 lumateperone 21 mg capsule (Caplyta) 21 mg PO QHS 10/16/24 sucralfate 1 gram tablet 1 g PO 4X/DAY 10/16/24 tamsulosin 0.4 mg capsule 0.4 mg PO QHS URINARY STREAM 10/16/24 trazodone 300 mg tablet 300 mg PO QHS 10/16/24 atorvastatin 40 mg tablet (Lipitor) 40 mg PO QHS #90 tabs 10/17/24
[2024-10-17] MEDS: Loratadine 10 MG Tablet PO (17:12)
[2024-10-22 16:08] LABS: Acetylcholine Receptor Binding < 0.07 nmol/L (0.00-0.24)
[2024-10-26 10:09] LABS: ACHR AB Modulating 0 % (0-45)
== END 2024-10-17 17:34 | disposition home or self-care (01) | DRG 69 ==
LOC: ED 15:14 → PCU 15:24
PROVIDERS: Emergency Provider Surgery; PCP Family Medicine; Visit Provider Internal Medicine
DX: G45.9 Transient cerebral ischemic attack, unspecified (principal); E03.9 Hypothyroidism, unspecified; F31.9 Bipolar disorder, unspecified; I10 Essential (primary) hypertension; E66.812 Obesity, class 2; K21.9 Gastro-esophageal reflux disease without esophagitis; E78.5 Hyperlipidemia, unspecified; R47.1 Dysarthria and anarthria; R74.01 Elevation of levels of liver transaminase levels; R26.81 Unsteadiness on feet; Z68.38 Body mass index [BMI] 38.0-38.9, adult; Z86.711 Personal history of pulmonary embolism; N40.1 Benign prostatic hyperplasia with lower urinary tract symptoms; R39.15 Urgency of urination
CPT/HCPCS: 36415; 70496; 70498; 70551; 71046; 80053; 80061; 80164; 81001; 82140; 83519; 84238; 84484; 85025; 85610; 85730; 93005; 93306; 97162; 97166; 97802; 99285; Q9957; Q9967; A4216; C8929; J2405